=== PATIENT | female | born 1945 | race Caucasian/White ===

== ENCOUNTER 2023-11-27 18:08 | Emergency (ER) | payer OTHER, SELFPAY ==
[2023-11-27 18:12] VITALS: BP 177/105
[2023-11-27] MEDS: TORADOL 15 MG IV (19:51)
[2023-11-27] MEDS: DECADRON 10 MG IV (20:32)
[2023-11-27] MEDS: MORPHINE SULFATE 2 MG IV (20:32)
[2023-11-27] MEDS: ZOFRAN 4 MG IV (20:32)
[2023-11-27 20:44] VITALS: BP 180/94
--- NOTE | 2023-11-27 20:55 | EDRN ---
Patient placed on bedpan and was able to urinate, call licea reach.
--- NOTE | 2023-11-27 21:51 | EDRN ---
Patient feeling better, got her something to eat
[2023-11-27 22:46] VITALS: BP 168/86
--- NOTE | 2023-11-27 23:36 | ED.GENMED ---
History of Present Illness
General
Chief Complaint: Back Pain
Source: patient
Exam Limitations: none
Time Seen by Provider: 11/27/23 18:29
Nursing documentation reviewed up to this point in time: agreed with
Travel History
Have you had any contact with someone who has COVID-19?: No
Do you have any symptoms of coronavirus? Fever > 100 degrees, chills, cough, shortness of breath, sore throat, loss of taste or smell, muscle aches, or headache?: No
History of Present Illness
History of Present Illness:
Patient to ED with complaint of low back pain with radiation to thighs. Symptoms started this AM. Denies fever/chills. No history of trauma. Denies any weakness in extremities, no saddle parasthesia. Denies any urinary symptoms
Past History
Past History
ED Past Medical History: GERD and HTN
ED Past Surgical History: Gynecological and Orthopedic
Social History
Tobacco: Non-smoker
Personal:
Living: with family
Review of Systems
Review of Systems
Allergies reviewed?: Yes
All Other Systems: ROS reviewed and negative except as documented in HPI and ROS
Constitutional: Reports no symptoms
EENT: Reports no symptoms
Respiratory: Reports no symptoms
Cardiac: Reports no symptoms
ABD/GI: Reports no symptoms
: Reports no symptoms
Musculoskeletal: Reports back pain (bilateral lower back pain)
Skin: Reports no symptoms
Neurological: Reports no symptoms
Psychiatric: Reports no symptoms
Phy Exam
General Physical Exam
General Presentation: well appearing and mild distress
General age: appears stated age
General Skin: warm and dry
General Habitus: normal
General Mental: alert
Gastrointestinal Exam
Gastrointestinal Exam: non tender and soft
Musculoskeletal Exam
Musculoskeletal Exam: no edema and neuro vasc intact
Skin Exam
Skin Exam: normal color and warm/dry
Psychiatric Exam
Psychiatric Exam: normal mood/affect
Course
Orders/Labs/Results
Orders:
Orders
11/27/23 18:52
Ketorolac [Toradol] 15 mg IV NOW STA
Lumbar Spine Complete, 4 View [CR Lumbar Spine Comp Min 4 Vw*] Urgent
Comment:
Reason For Exam: pain
11/27/23 20:25
Dexamethasone Sod Phosphate [Decadron] 10 mg IV NOW STA
Morphine Sulfate 2 mg IV NOW STA
Ondansetron Injectable [Zofran] 4 mg IV NOW STA
Vital Signs
Initial and Last Documented VS:
Initial Vital Signs
Temp Pulse Resp BP Pulse Ox
97.7 F 80 16 177/105 97
11/27/23 18:12 11/27/23 18:12 11/27/23 18:12 11/27/23 18:12 11/27/23 18:12
Last Documented Vital Signs
Temp Pulse Resp BP Pulse Ox
97.7 F 89 16 168/86 92
11/27/23 18:12 11/27/23 20:44 11/27/23 20:44 11/27/23 22:46 11/27/23 20:44
*Radiology
Radiology exam reviewed: radiology read reviewed
*Pulse Oximetry
Patient hypoxic: no
*Critical Care Note
Total Time (30-74mins, 75-104mins- exclusive of procedures): Not Applicable
Update Note
Update Note:
Improved after pain medicatons. She is discharged home, will follow up with PCP in AM
ED Attending Note
-
Portions of this chart may have been created with voice recognition software.� Occasional wrong word or��sound alike� substitutions may have occurred due to the inherent limitations of voice recognition software.
Discharge Plan
Departure
Patient Disposition: Home (Routine Discharge)
Date of Disposition: 11/27/23
Time of Disposition: 22:01
Patient with high blood pressure during this ER visit?: No
Condition: Good
Covid-19: Not Applicable
Discharge Problem:
Low back pain
Instructions: Low Back Pain (DC), Sciatica (DC)
Prescriptions:
New
oxycodone-acetaminophen [Percocet] 5-325 mg tablet
1 tab PO Q4H PRN (Reason: Pain) Qty: 12 0RF
No Action
docusate sodium [Colace] 100 mg Capsule
100 mg PO DAILYPRN PRN (Reason: cosntipation)
pravastatin 20 mg Tablet
20 mg PO HS
lisinopril 40 mg Tablet
40 mg PO DAILY
ropinirole 2 mg Tablet Extended Release 24 Hr
2 mg PO BID@1200,2200
magnesium oxide 500 mg Tablet
500 mg PO DAILY Qty: 30 0RF
ferrous sulfate 325 mg (65 mg iron) tablet
325 mg PO DAILY Qty: 30 0RF
propranolol 10 mg Tablet
10 mg PO BID Qty: 0 0RF
propranolol 10 mg tablet
10 mg PO BID Qty: 60 0RF
Referrals:
Cindy Camp MD [Family Provider] - Follow up in 2-3 days
Interventions
Interventions:
*Risk Screen - Suicide Last Done: 11/27/23 18:38
*General Assessment Last Done: 11/27/23 18:38
*Neglect/Abuse Screening Last Done: 11/27/23 18:38
ED- Fall Risk Assessment Last Done: 11/27/23 20:44
*ED COVID-19 Vaccine History Last Done: 11/27/23 18:12
*Nursing Disposition Last Done: 11/27/23 22:48
ED-Musculoskeletal Assessment Last Done: 11/27/23 18:38
Discharge Date and Time
Discharge Date/Time: 11/27/23 22:55
Musculoskeletal Injury Exam
Musculoskeletal Injury Exam
Bilateral Lower Back:
Pain with Movement?: Moderate
Tender to palpation?: Moderate
Soft tissue swelling?: None
External deformity and angulation?: None
Joint effusion?: None
Contusion?: None
Strain- Sprain- Tear (Connective tissue injury)?: Moderate
Crepitus with movement?: No
Joint instability?: No
Malalignment/deformity?: No
Range of motion: Limited
Distal skin color and temperature: normal-warm & good color
Capillary Refill: normal
Normal distal neurovascular exam?: Yes
== END 2023-11-27 22:55 | disposition home or self-care (01) ==
LOC: EMR 18:08
PROVIDERS: EMERGENCY PHYSICIAN Emergency Medicine; FAMILY PHYSICIAN Internal Medicine
DX: M54.50 Low back pain, unspecified (principal); M79.605 Pain in left leg; I10 Essential (primary) hypertension; K21.9 Gastro-esophageal reflux disease without esophagitis; M19.90 Unspecified osteoarthritis, unspecified site; Z88.8 Allergy status to other drugs, medicaments and biological substances
CPT/HCPCS: 99284; 96374; 96375 ×3; 72110

== ENCOUNTER → 2023-12-08 13:52 | Outpatient (REF) | payer OTHER, SELFPAY | LOC: HWRAD 13:52 | PROVIDERS: ATTENDING PHYSICIAN Physician Assistant; FAMILY PHYSICIAN Internal Medicine | DX: M54.16 Radiculopathy, lumbar region (principal) | CPT/HCPCS: 72131 ==

== ENCOUNTER → 2023-12-22 12:25 | Outpatient (REF) | payer OTHER, SELFPAY | LOC: WOUND 12:25 | PROVIDERS: ATTENDING PHYSICIAN Surgery; FAMILY PHYSICIAN Internal Medicine | DX: L97.812 Non-pressure chronic ulcer of other part of right lower leg with fat layer exposed (principal); I87.2 Venous insufficiency (chronic) (peripheral); I73.9 Peripheral vascular disease, unspecified; M18.12 Unilateral primary osteoarthritis of first carpometacarpal joint, left hand | CPT/HCPCS: 11042; 99204 ==

== ENCOUNTER → 2023-12-29 09:26 | Outpatient (REF) | payer OTHER, SELFPAY | LOC: WOUND 09:26 | PROVIDERS: ATTENDING PHYSICIAN Surgery; FAMILY PHYSICIAN Internal Medicine | DX: L97.812 Non-pressure chronic ulcer of other part of right lower leg with fat layer exposed (principal); I87.2 Venous insufficiency (chronic) (peripheral); I73.9 Peripheral vascular disease, unspecified; M18.12 Unilateral primary osteoarthritis of first carpometacarpal joint, left hand | CPT/HCPCS: 11042 ==

== ENCOUNTER → 2024-01-05 11:11 | Outpatient (REF) | payer OTHER, SELFPAY | LOC: WOUND 11:11 | PROVIDERS: ATTENDING PHYSICIAN Surgery; FAMILY PHYSICIAN Internal Medicine | DX: L97.812 Non-pressure chronic ulcer of other part of right lower leg with fat layer exposed (principal); I87.2 Venous insufficiency (chronic) (peripheral); I73.9 Peripheral vascular disease, unspecified; M18.12 Unilateral primary osteoarthritis of first carpometacarpal joint, left hand | CPT/HCPCS: 11042 ==

== ENCOUNTER → 2024-01-17 11:21 | Outpatient (REF) | payer OTHER, SELFPAY | LOC: WOUND 11:21 | PROVIDERS: ATTENDING PHYSICIAN Surgery; FAMILY PHYSICIAN Internal Medicine | DX: L97.812 Non-pressure chronic ulcer of other part of right lower leg with fat layer exposed (principal); I87.2 Venous insufficiency (chronic) (peripheral); I73.9 Peripheral vascular disease, unspecified; M18.12 Unilateral primary osteoarthritis of first carpometacarpal joint, left hand | CPT/HCPCS: 11042 ==

== ENCOUNTER → 2024-01-31 11:24 | Outpatient (REF) | payer OTHER, SELFPAY | LOC: WOUND 11:24 | PROVIDERS: ATTENDING PHYSICIAN Surgery; FAMILY PHYSICIAN Internal Medicine | DX: L97.812 Non-pressure chronic ulcer of other part of right lower leg with fat layer exposed (principal); I87.2 Venous insufficiency (chronic) (peripheral); I73.9 Peripheral vascular disease, unspecified; M18.12 Unilateral primary osteoarthritis of first carpometacarpal joint, left hand | CPT/HCPCS: 11042 ==

== ENCOUNTER → 2024-02-21 10:56 | Outpatient (REF) | payer OTHER, SELFPAY | LOC: HWRAD 10:56 | PROVIDERS: ATTENDING PHYSICIAN Surgery; FAMILY PHYSICIAN Internal Medicine | DX: L97.812 Non-pressure chronic ulcer of other part of right lower leg with fat layer exposed (principal); I87.2 Venous insufficiency (chronic) (peripheral) | CPT/HCPCS: 93970 ==

== ENCOUNTER → 2024-02-22 13:06 | Outpatient (REF) | payer OTHER, SELFPAY | LOC: RAD 13:06 | PROVIDERS: ATTENDING PHYSICIAN Surgery; FAMILY PHYSICIAN Internal Medicine | DX: L97.812 Non-pressure chronic ulcer of other part of right lower leg with fat layer exposed (principal); I73.9 Peripheral vascular disease, unspecified | CPT/HCPCS: 93922; 93925 ==

== ENCOUNTER → 2024-03-05 10:56 | Outpatient (REF) | payer OTHER, SELFPAY | LOC: WOUND 10:56 | PROVIDERS: ATTENDING PHYSICIAN Surgery; FAMILY PHYSICIAN Internal Medicine | DX: L97.812 Non-pressure chronic ulcer of other part of right lower leg with fat layer exposed (principal); I87.2 Venous insufficiency (chronic) (peripheral); I73.9 Peripheral vascular disease, unspecified; M18.12 Unilateral primary osteoarthritis of first carpometacarpal joint, left hand | CPT/HCPCS: 11042 ==

== ENCOUNTER 2024-04-04 13:38 | Emergency (ER) | payer OTHER, SELFPAY ==
[2024-04-04 13:46] VITALS: BP 164/102
[2024-04-04 14:14] LABS: % Basophils 1.1 % (0-2); % Eosinophils 3.8 % (0-6); % Immature Granulocytes 0.3 % (0-0.5); % Lymphocytes 12.5 % (20.5-51.1); % Monocytes 6.7 % (1.7-9.3); % Neutrophils 75.6 % (42.2-75.2); Absolute Basophils 0.1 10^3/uL (0-0.2); Absolute Eosinophils 0.3 10^3/uL (0-0.7); Absolute Lymphocytes 0.9 10^3/uL (1.2-3.4); Absolute Monocytes 0.5 10^3/uL (0.1-0.6); Absolute Neutrophils 5.5 10^3/uL (1.4-6.5); Hematocrit 36.4 % (37.0-47.0); Hemoglobin 11.8 g/dL (12.0-16.0); Mean Corp Hgb Conc. 32.4 g/dL (33.0-37.0); Mean Corpuscular Hgb 30.3 pg (27.0-31.0); Mean Corpuscular Volume 93.6 fL (81.0-99.0); Mean Platelet Volume 9.5 fL (7.4-10.4); Nucleated Red Blood Cells % 0 %; Platelet Count 273 10^3/uL (130-400); Red Blood Cell Count 3.89 10^6/uL (4.20-5.40); Red Cell Dist. Width 13.6 % (11.5-14.5); White Blood Cell Count 7.3 10^3/uL (4.8-10.8)
[2024-04-04 14:27] LABS: ALT (SGPT) 15 U/L (0-35); AST (SGOT) 25 U/L (14-36); Albumin 4.2 g/dl (3.5-5.0); Alkaline Phosphatase 124 U/L (38-126); Blood Urea Nitrogen 21 mg/dl (7-17); Calcium 9.5 mg/dl (8.4-10.2); Carbon Dioxide 29 mmol/L (22-30); Chloride 102 mmol/L (98-107); Glucose 116 mg/dl (70-99); Potassium 4.4 mmol/L (3.5-5.1); Sodium 138 mmol/L (135-145); Total Bilirubin 0.5 mg/dl (0.2-1.3); Total Protein 7.3 g/dl (6.3-8.2); eGFR > 60.00
[2024-04-04 16:00] VITALS: BP 171/93
--- NOTE | 2024-04-04 17:11 | ED.GENMED ---
History of Present Illness
General
Chief Complaint: Gait Dysfunction
Source: patient and family
Time Seen by Provider: 04/04/24 16:57
History of Present Illness
History of Present Illness:
78-year-old female presents to the emergency room after being referred here from an urgent care. Patient went to urgent care because she had fallen off the couch a couple times while sleeping. She was complaining of some difficulty walking because
her right leg and when to move normally. She states her right leg would move normally when she was sitting but when she attempted to walk it was difficult. Patient does endorse a history of back issues and spinal stenosis. Due to severe
claustrophobia she has not had an MRI but she has been seen by back specialist and did have some injections in her back. Surprisingly the patient recognized that her right leg was moving more normally when they were getting into the car to go to
the urgent care. Right now she feels her leg is moving normally and the issues of the right leg have completely gone away. However while at the urgent care at the provider there noted some erythema of the left lower extremity. They referred her
to the emergency room to rule out DVT. Patient has no pain in her lower extremity. She denies any chest pain or shortness of breath. Patient has not had any hospitalizations or periods of immobilization. She denies any long car rides or plane
rides.
Past History
Past History
ED Past Medical History: GERD and HTN
ED Past Surgical History: Gynecological and Orthopedic
Social History
Tobacco: Non-smoker
Personal:
Living: with family
Phy Exam
Physical Exam
Physical Exam:
General: Awake, Alert, Oriented X3. No acute distress, appears stated age
Vitals: unremarkable
Head: Atraumatic
Eyes: Pupils equal, EOMI
Throat: Airway intact, no exudates
Neck: Trachea midline
Lungs: Clear and equal b/l
Heart: Regular rate, no murmurs
Abd: Soft, Nontender, No pulsatile mass
Neuro: Nonfocal, muscle strength in both lower extremities are intact. Sensation is intact in bilateral lower extremity
Skin: Warm, dry, no rash
Extremities: pulses equal b/l, trace edema bilaterally, mild erythema of the foot to the mid lower leg bilaterally perhaps a bit more on the left. No tenderness with palpation of the calf. Sensation intact. I am able to move the ankle, knee and
hip through range of motion on the right without any discomfort.
Course
Orders/Labs/Results
Orders:
Orders
04/04/24 13:57
CMP [Comprehensive Metabolic Panel] Urgent
Complete Blood Count/With Diff Urgent
04/04/24 17:26
US Periph Venous LOWER Ext LT Urgent
Comment:
Reason For Exam: erythema, swelling
Abnormal Lab Results
04/04/24
13:57
RBC 3.89 L 10^6/uL
(4.20-5.40)
Hgb 11.8 L g/dL
(12.0-16.0)
Hct 36.4 L %
(37.0-47.0)
MCHC 32.4 L g/dL
(33.0-37.0)
Absolute Lymphs (auto) 0.9 L 10^3/uL
(1.2-3.4)
Neutrophils % 75.6 H %
(42.2-75.2)
Lymphocytes % 12.5 L %
(20.5-51.1)
BUN 21 H mg/dl
(7-17)
Glucose 116 H mg/dl
(70-99)
04/04/24 13:57
04/04/24 13:57
Vital Signs
Initial and Last Documented VS:
Initial Vital Signs
Temp Pulse Resp BP Pulse Ox
98.0 F 75 18 164/102 96
04/04/24 13:46 04/04/24 13:46 04/04/24 13:46 04/04/24 13:46 04/04/24 13:46
Last Documented Vital Signs
Temp Pulse Resp BP Pulse Ox
98 F 84 16 203/92 96
04/04/24 16:00 04/04/24 19:32 04/04/24 16:00 04/04/24 19:32 04/04/24 19:32
MDM/Problems Addressed
Differential Diagnosis Includes:
Changes of venous stasis, cellulitis, DVT
MDM/Problems Addressed:
Patient has an exam which seems more consistent with chronic venous stasis but given another practitioner has because the family concerned about a DVT we will have to excluded with the study.
*Critical Care Note
Total Time (30-74mins, 75-104mins- exclusive of procedures): Not Applicable
ED Attending Note
-
Portions of this chart may have been created with voice recognition software.� Occasional wrong word or��sound alike� substitutions may have occurred due to the inherent limitations of voice recognition software.
Discharge Plan
Departure
Patient Disposition: Home (Routine Discharge)
Date of Disposition: 04/04/24
Time of Disposition: 18:48
Patient with high blood pressure during this ER visit?: Yes
Condition: Good
Discharge Problem:
Venous stasis dermatitis
Instructions: BLOOD PRESSURE
Prescriptions:
No Action
docusate sodium [Colace] 100 mg Capsule
100 mg PO DAILYPRN PRN (Reason: cosntipation)
pravastatin 20 mg Tablet
20 mg PO HS
lisinopril 40 mg Tablet
40 mg PO DAILY
ropinirole 2 mg Tablet Extended Release 24 Hr
2 mg PO BID@1200,2200
magnesium oxide 500 mg Tablet
500 mg PO DAILY Qty: 30 0RF
ferrous sulfate 325 mg (65 mg iron) tablet
325 mg PO DAILY Qty: 30 0RF
propranolol 10 mg Tablet
10 mg PO BID Qty: 0 0RF
propranolol 10 mg tablet
10 mg PO BID Qty: 60 0RF
oxycodone-acetaminophen [Percocet] 5-325 mg tablet
1 tab PO Q4H PRN (Reason: Pain) Qty: 12 0RF
Referrals:
UNKNOWN - PT DOES,NOT KNOW [Family Provider] -
Activity Restrictions/Additional Instructions:
The ultrasound of your leg is negative for any clots. The increased redness of your legs is likely due to changes in venous blood flow that occurs with age. Though your right leg issue has resolved but I suspect this was related to your lumbar
spine. Please follow your family doctor related to this as well. Your blood pressure is somewhat elevated here in the emergency room. Please follow-up with your family doctor to recheck this and see if there is any medication modifications they
would like to make.
Interventions
Interventions:
*Risk Screen - Suicide Last Done: 04/04/24 17:15
*General Assessment Last Done: 04/04/24 17:15
*Neglect/Abuse Screening Last Done: 04/04/24 17:15
ED- Fall Risk Assessment Last Done: 04/04/24 19:15
*ED COVID-19 Vaccine History Last Done: 04/04/24 17:15
*Nursing Disposition Last Done: 04/04/24 19:15
ED- Neurological Assessment Last Done: 04/04/24 17:15
ED-Musculoskeletal Assessment Last Done: 04/04/24 17:15
Discharge Date and Time
Discharge Date/Time: 04/04/24 19:20
Print Language: SWISS
[2024-04-04 19:32] VITALS: BP 203/92
== END 2024-04-04 19:20 | disposition home or self-care (01) ==
LOC: EMR 13:38
PROVIDERS: Emergency Medicine; EMERGENCY PHYSICIAN Emergency Medicine
DX: I87.2 Venous insufficiency (chronic) (peripheral) (principal); R26.2 Difficulty in walking, not elsewhere classified; K21.9 Gastro-esophageal reflux disease without esophagitis; I10 Essential (primary) hypertension
CPT/HCPCS: 99284; 80053; 85025; 93971

== ENCOUNTER → 2024-04-10 11:18 | Outpatient (REF) | payer OTHER, SELFPAY | LOC: WOUND 11:18 | PROVIDERS: ATTENDING PHYSICIAN Surgery; FAMILY PHYSICIAN Internal Medicine | DX: L97.812 Non-pressure chronic ulcer of other part of right lower leg with fat layer exposed (principal); I87.2 Venous insufficiency (chronic) (peripheral); I73.9 Peripheral vascular disease, unspecified; M18.12 Unilateral primary osteoarthritis of first carpometacarpal joint, left hand | CPT/HCPCS: 11042 ==

== ENCOUNTER → 2024-04-23 11:20 | Outpatient (REF) | payer OTHER, SELFPAY | LOC: WOUND 11:20 | PROVIDERS: ATTENDING PHYSICIAN Surgery; FAMILY PHYSICIAN Internal Medicine | DX: L97.812 Non-pressure chronic ulcer of other part of right lower leg with fat layer exposed (principal); I87.2 Venous insufficiency (chronic) (peripheral); I73.9 Peripheral vascular disease, unspecified; M18.12 Unilateral primary osteoarthritis of first carpometacarpal joint, left hand | CPT/HCPCS: 11042 ==

== ENCOUNTER → 2024-04-30 11:21 | Outpatient (REF) | payer OTHER, SELFPAY | LOC: WOUND 11:21 | PROVIDERS: ATTENDING PHYSICIAN Surgery; FAMILY PHYSICIAN Internal Medicine | DX: L97.812 Non-pressure chronic ulcer of other part of right lower leg with fat layer exposed (principal); I87.2 Venous insufficiency (chronic) (peripheral); I73.9 Peripheral vascular disease, unspecified; M18.12 Unilateral primary osteoarthritis of first carpometacarpal joint, left hand | CPT/HCPCS: 97597 ==

== ENCOUNTER → 2024-05-08 11:15 | Outpatient (REF) | payer OTHER, SELFPAY | LOC: WOUND 11:15 | PROVIDERS: ATTENDING PHYSICIAN Surgery; FAMILY PHYSICIAN Internal Medicine | DX: L97.812 Non-pressure chronic ulcer of other part of right lower leg with fat layer exposed (principal); I87.2 Venous insufficiency (chronic) (peripheral); I73.9 Peripheral vascular disease, unspecified; M18.12 Unilateral primary osteoarthritis of first carpometacarpal joint, left hand | CPT/HCPCS: 99212 ==

== ENCOUNTER 2024-11-26 20:47 | Inpatient (IN) | payer OTHER, SELFPAY ==
[2024-11-26] VITALS (42 sets, daily range): BP systolic 61–138; BP diastolic 44–95; PULSE 53–65; BMI 24.1
[2024-11-26 13:39] LABS: % Basophils 0.4 % (0-2); % Eosinophils 1.3 % (0-6); % Immature Granulocytes 0.2 % (0-0.5); % Lymphocytes 11.9 % (20.5-51.1); % Monocytes 8.3 % (1.7-9.3); % Neutrophils 77.9 % (42.2-75.2); Absolute Eosinophils 0.1 10^3/uL (0-0.7); Absolute Lymphocytes 0.6 10^3/uL (1.2-3.4); Absolute Monocytes 0.4 10^3/uL (0.1-0.6); Absolute Neutrophils 3.7 10^3/uL (1.4-6.5); Hematocrit 35.6 % (37.0-47.0); Hemoglobin 11.5 g/dL (12.0-16.0); Mean Corp Hgb Conc. 32.3 g/dL (33.0-37.0); Mean Corpuscular Hgb 29.9 pg (27.0-31.0); Mean Corpuscular Volume 92.7 fL (81.0-99.0); Nucleated Red Blood Cells % 0.4 %; Red Blood Cell Count 3.84 10^6/uL (4.20-5.40); Red Cell Dist. Width 15.9 % (11.5-14.5); White Blood Cell Count 4.7 10^3/uL (4.8-10.8)
[2024-11-26 13:50] LABS: Mean Platelet Volume 12.6 fL (7.4-10.4); Platelet Count 74 10^3/uL (130-400)
[2024-11-26 13:59] LABS: ALT (SGPT) 49 U/L (0-35); AST (SGOT) 63 U/L (14-36); Albumin 3.8 g/dl (3.5-5.0); Alkaline Phosphatase 193 U/L (38-126); Blood Urea Nitrogen 58 mg/dl (7-17); Calcium 9.5 mg/dl (8.4-10.2); Carbon Dioxide 26 mmol/L (22-30); Chloride 107 mmol/L (98-107); Glucose 97 mg/dl (70-99); Sodium 141 mmol/L (135-145); Total Bilirubin 0.4 mg/dl (0.2-1.3); Total Protein 7.1 g/dl (6.3-8.2)
--- NOTE | 2024-11-26 17:17 | ED.GENMED ---
History of Present Illness
General
Chief Complaint: Weakness
Source: patient and family
Time Seen by Provider: 11/26/24 16:01
History of Present Illness
History of Present Illness:
This patient is an 79-year-old female presents emergency department with a 3-week history of reported lethargy, slow to answer questions and occasionally slurred speech. She also has very poor p.o. intake and eats and drinks very little over the
last 3 weeks without noted weight change. Patient reports a severe amount of nasal congestion and postnasal drip. confirms that she also has a cough that is productive without blood and is complaining of a dry mouth. Patient typically
uses a walker and shuffles, they attribute this in part to a 'bad knee'. They have not noted changes to her gait. No history of recent trauma. Patient does not typically seek medical care. She is not on any blood thinning medications. No
history recently of fever, chills, chest pain, shortness of breath, abdominal pain, vomiting, diarrhea, or other complaints peer
Past History
Past History
ED Past Medical History: GERD, HTN and Hypercholesterolemia
ED Past Surgical History: Gynecological, Orthopedic and Other ([facility])
Social History
Tobacco: Non-smoker
Alcohol: None
Drug: None
Personal:
Living: with family
Phy Exam
Physical Exam
Physical Exam:
GENERAL: Alert , in no apparent distress
EYE: pupils equal and reactive, no photophobia, EOMI
NECK: Supple, no significant adenopathy.
ENT: o/p clr, mm very dry
CARDIAC: Regular rate and rhythm, questionable 2 out of 6 systolic murmur noted.
LUNGS: Equal breath sounds bilaterally, no acute respiratory distress, diffuse rhonchi noted, no retractions
ABDOMEN: Soft, without focal tenderness, no r/g, no cvat
NEUROLOGICAL: Alert and oriented but very slow to answer to some questions, [id number] normal, motor 5 out of 5, sensory intact to light touch. Cranial nerves II through XII intact with the section
SKIN: Warm and dry, skin intact.
MUSCULOSKELETAL: No edema, well perfused.
PSYCH: Normal and appropriate interaction.
Course
Orders/Labs/Results
Orders:
Orders
11/26/24 13:18
Complete Blood Count/With Diff Urgent
Comprehensive Metabolic Panel Urgent
11/26/24 Dinner
NPO
Allow oral meds: Yes
Allow clear liquids: Sips of Clears
11/26/24 17:15
Electrocardiogram (*1) Urgent
Reason for Study: Other
Other Reason for Exam: sepsis
Cardiac Monitoring- Treatment ONCE
EKG- Treatment ONCE
0.9% Sodium Chloride 1000 ml [Nss] 1,000 ml IV BOLUS
CR Chest - 2 Views Urgent
Comment:
Reason For Exam: cough
Pulse Ox/cont/shift [RESP] Urgent
Quantity: 1
11/26/24 17:16
CT Head W/o Iv Contrast Urgent
Comment:
Reason For Exam: confusion/lethargy
11/26/24 17:37
Alcohol Urgent
COVID-19 Antigen Urgent
Source: Nasal Swab
Lactic Acid Q4H
Comment: CANCEL 2nd LACTIC ACID IF 1st LACTIC ACID IS LESS THAN 2
TSH Urgent
Troponin I Urgent
Blood Culture Q30M
MARA Source: Blood/Venous
Specimen Description:
Influenza A+B Rapid Molecular Urgent
MARA Source: Nasal Swab
Specimen Description:
11/26/24 17:46
Blood Culture Q30M
MARA Source: Blood/Venous
Specimen Description:
11/26/24 17:58
Rocio Hugger [Rocio Hugger-Treatment] ONCE
Patient's goal temperature:: 97 F
Additional Instructions:: Temperature and skin assessment per unit protocol
11/26/24 18:45
US Abdomen Complete/Upper Urgent
Comment:
Reason For Exam: lft abnl, hypothermia
11/26/24 19:07
Electrocardiogram (*1) Urgent
Reason for Study: Bradycardia / Tachycardia
EKG- Treatment ONCE
11/26/24 19:22
Azithromycin 500 mg/250 ml [Zithromax Infusion] 500 mg in 250 ml IV NOW
CefTRIAXone [Rocephin] 1,000 mg IV NOW STA
11/26/24 19:24
Atropine Sulfate [Atropine 0.1 mg/ml Syringe] 1 mg .ROUTE .STK-MED ONE
Atropine Sulfate [Atropine 0.1 mg/ml Syringe] 1 mg IV NOW STA
11/26/24 19:25
EPINEPHrine 4 mg/250 mL NSS [Adrenalin] 4 mg in 250 ml IV NOW
Initial dose in mcg/min, then titrate:: 2
Titrate to keep:: MAP > 65 mmHg
Titrate by mcg/min:: 0.5 - 1 mcg/minute
Frequency of titrations (minutes):: 5
Maximum dose in mcg/min:: 10
Begin to taper infusion when:: Remained at goal for 4hrs
Taper by mcg/min:: 0.5 - 1 mcg/minute
Frequency of taper (minutes) if patient maintains goal:: 30
Taper to off?: Yes
If infusion off & no longer maintaining goal:: Contact Provider
11/26/24 19:42
Urinalysis Reflex To Culture Urgent
Date Specimen was Collected: 11/26/24
Time Specimen was Collected: 19:41
Urine Drug Abuse Screen Urgent
Date Specimen was Collected: 11/26/24
Time Specimen was Collected: 19:41
Urine Microscopic Reflex Cult Urgent
Urine Culture Urgent
MARA Source: U
Specimen Description:
Date Specimen was Collected: 11/26/24
Time Specimen was Collected: 19:41
11/26/24 20:18
CRP [C-Reactive Protein] Stat
ESR [Erythrocyte Sed Rate] Stat
Free T4 Stat
GGT [GGTP] Stat
Procalcitonin Stat
PCT Algorithmm Indication: Respiratory
Salicylate Stat
Comment: ADDON
11/26/24 20:23
Admit/Transfer Patient As Directed
Co-Sign Provider:
Level of Care: Inpatient admission
Assign to:: ICU
Physician / Group: hospitalist
Diagnosis: hypothermia
Reason for Hospitalization: hypothermia, symptomatic bradycardia with hypotension
Expected length of stay greater than two midnights?: Yes
ELOS- Estimated Length of Stay in days: 2
I certify the patient meets the requirements for IP care: Yes
PRN Pain Medication Management As Directed
May give lesser potent ordered pain med per pt: Yes
preference::
Protocol:: Medication orders for pain may be administered in a
manner that supports deferring to patient preference
when the pt is:
- Requesting an ordered lesser potent pain medication.
Least to most potent pain medications are defined
as: acetaminophen < NSAID < tramadol < opioids
(morphine, oxycodone, hydromorphone).
- Requesting a lesser dose of the same medication IF
ORDERED.
- Requesting a less intrusive route of administration
if both routes are prescribed by the provider (PO <
IV).
11/26/24 20:24
Code Status As Directed
Resuscitation Status: Full Code
11/26/24 20:30
Add On- LAB Urgent
Tests Added?: salicylate level
11/26/24 20:42
Add On- LAB Stat
Tests Added?: urine drug screen
11/26/24 21:08
Lactic Acid Stat
11/26/24 22:00
MetroNIDAZOLE 500 MG/100 ML [Flagyl 500 mg] 100 ml IV Q12H
11/26/24 22:01
Acetaminophen [Tylenol] 650 mg PO Q6HPRN PRN
Cefepime HCl [Maxipime] 1,000 mg IV Q6H
Dextrose 5%/Lactringers 1000ML [D5lr] 1,000 ml IV 80 mls/hr
EPINEPHrine 4 mg/250 mL NSS [Adrenalin] 4 mg in 250 ml IV PER PROTOCOL
Currently infusing. Continue current dose and titrate:: Yes
Titrate to keep:: HR > 60 bpm
Titrate to keep other:: MAP > 60
Titrate by mcg/min:: 0.5-1 mcg/min
Frequency of titrations (minutes):: 5
Maximum dose in mcg/min:: 10
Begin to taper infusion when:: Remained at goal for 4hrs
Taper by mcg/min:: 0.5-1 mcg/min
Frequency of taper (minutes) if patient maintains goal:: 30
Taper to off?: Yes
If infusion off & no longer maintaining goal:: Contact Provider
Ondansetron Injectable [Zofran] 4 mg IV Q6HPRN PRN
11/26/24 22:01
Activity As Directed
Activity Level: With Assistance
Louis Catheter [Catheter- Indwelling] As Directed
Reason for insertion: I&O's Critical Care
Assess insertion reason daily.Remove if no longer applicable: Yes
Intake/ Output As Directed
Frequency: Per unit guidelines
Vital Signs As Directed
Frequency: Per unit guidelines
O2 Therapy [RESP] Routine
Nasal Cannula Liter Flow: 3 LPM
Titrate/Wean O2 to maintain O2 sat greater than (%): 93
Pulse Ox/cont/shift [RESP] Routine
Quantity: 1
Special Instructions: continuous pulse ox
DX Deep Vein Thrombosis Video Routine
11/27/24 04:04
Complete Blood Count/No Diff IN AM
Cortisol, Random IN AM
Creatine Phosphokinase IN AM
Glycohemoglobin (HgbA1c) IN AM
Hepatitis A IgM Antibody IN AM
Hepatitis B Core Ab, IgM IN AM
Hepatitis B Surface Antibody IN AM
Hepatitis B Surface Antigen IN AM
Hepatitis C Antibody IN AM
11/27/24 08:00
Pantoprazole [Protonix IV] 40 mg IV DAILY
11/27/24 18:00
Enoxaparin Sodium [Lovenox] 40 mg SC QPM
Abnormal Lab Results
11/26/24 11/26/24 11/26/24
13:18 19:42 20:18
WBC 4.7 L 10^3/uL
(4.8-10.8)
RBC 3.84 L 10^6/uL
(4.20-5.40)
Hgb 11.5 L g/dL
(12.0-16.0)
Hct 35.6 L %
(37.0-47.0)
MCHC 32.3 L g/dL
(33.0-37.0)
RDW 15.9 H %
(11.5-14.5)
Plt Count 74 L 10^3/uL
(130-400)
MPV 12.6 H fL
(7.4-10.4)
Absolute Lymphs (auto) 0.6 L 10^3/uL
(1.2-3.4)
Neutrophils % 77.9 H %
(42.2-75.2)
Lymphocytes % 11.9 L %
(20.5-51.1)
ESR 44 H mm/hour
(0-20)
BUN 58 H mg/dl
(7-17)
AST 63 H U/L
(14-36)
ALT 49 H U/L
(0-35)
Alkaline Phosphatase 193 H U/L
(38-126)
C-Reactive Protein 18.20 H mg/L
(0.0-10.00)
Ur Occult Blood Reflex 4+ A
(Negative)
Leukocyte Esterase Rfl 3+ A
(Negative)
Urine RBC 16-20 A /HPF
(0-2)
Urine WBC (Reflex) 60-70 A /HPF
(0-5)
Urine Bacteria (Reflex) Many A
(Negative)
Urine Albumin (Reflex) 2+ A
(Neg - Trace)
Salicylates < 1.0 L mg/dl
(2.0-20.0)
11/26/24 13:18
11/26/24 13:18
Vital Signs
Initial and Last Documented VS:
Initial Vital Signs
Pulse Resp BP Pulse Ox
57 16 103/66 93
11/26/24 13:11 11/26/24 13:11 11/26/24 13:11 11/26/24 13:11
Last Documented Vital Signs
Temp Pulse Resp BP Pulse Ox
96.8 F L 54 16 127/70 97
11/27/24 15:41 11/27/24 14:45 11/27/24 14:45 11/27/24 14:40 11/27/24 14:45
*Critical Care Note
Total Time (30-74mins, 75-104mins- exclusive of procedures): 35
Update Note
Update Note:
Patient presents to the Emergency Department with __lethargy, cough, etc.
Number and Complexity of Problems Addressed at the Encounter
� Chronic conditions affecting care:
� Acute Exacerbation and/or Progression of Chronic Illness:
� Differential Diagnosis includes: But not limited to sepsis, pneumonia, thyroid disorder, stroke, UTI, drug related effects, etc. etc.
Amount and/or Complexity of Data to be Reviewed and Analyzed
� I performed an independent evaluation of and my interpretation is:
EKG:sinus paola, no acute ischemia
CT:head nad
Xrays:Large hiatal hernia/partially intrathoracic stomach, probably increased in size compared to previous radiograph of August 03, 2023.
Small left pleural effusion, which appears increased compared to previous radiograph. Parenchymal opacity within the left lower lung is most likely atelectasis, but underlying pneumonia difficult to exclude.
Patchy parenchymal opacity within the right lower lung is new from previous radiograph, with main differential considerations of pneumonia and/or atelectasis.
Laboratory Studies: New thrombocytopenia noted, questional cause, new prerenal azotemia I suspect related to poor p.o. intake, nonspecific LFT abnormalities
Other:
� Review of other/old records reveals: I reviewed meds with daughter Arline Wright, patient is on propranolol, losartan, and now nifedipine which was added about 5 weeks ago.
� Clinical information was obtained by an independent historian: and [id number] Adriana who is at bedside
� Prescriptions/Medications Considered but not given:
� Further testing considered but not performed:
Risk of Complications and/or Morbidity or Mortality of Patient Management
� Social determinants of health affecting care:
� Discussion with other providers (PCP, Hospitalists, Consultants, etc):
� Escalation of care including admission/observation vs risk of discharge considered: Patient was moderately bradycardic upon presentation is now having episodes of bradycardia to the level of heart rate of 30s with associated
hypotension. This spontaneously improved to heart rate in the 50s with a systolic blood pressure in the mid 80s. Patient is awake and alert. Repeat ECG shows sinus bradycardia at 50, no specific heart blocks noted. In speaking with family, she
did have a calcium channel leela just added to her regimen and perhaps the combination of 3 BP meds could be contributing to these vital sign abnormalities. Patient will be started on a low-dose epi drip in addition to close monitoring of
patient's temperature, respiratory status etc. Case discussed with hospitalist. Family updated.
ED Attending Note
-
Portions of this chart may have been created with voice recognition software.� Occasional wrong word or��sound alike� substitutions may have occurred due to the inherent limitations of voice recognition software.
Discharge Plan
Departure
Patient Disposition: Admit
Date of Disposition: 11/26/24
Time of Disposition: 19:25
Admit to: ICU
Presentation/result/management discussed w/ accepting MD/DO: Hospitalist
Condition: Critical
Discharge Problem:
Hypothermia, Bradycardia
Interventions
Interventions:
*Risk Screen - Suicide Last Done: 11/26/24 13:14
*General Assessment Last Done: 11/26/24 17:33
*Neglect/Abuse Screening Last Done: 11/26/24 13:14
*ED COVID-19 Vaccine History Last Done: 11/26/24 17:33
*Nursing Disposition Last Done: 11/26/24 22:12
ED- Cardiac Assessment Last Done: 11/26/24 18:28
ED- Neurological Assessment Last Done: 11/26/24 18:28
ED- Pulmonary Assessment Last Done: 11/26/24 18:28
Discharge Date and Time
Discharge Date/Time: 11/26/24 22:12
[2024-11-26] MEDS: NSS 1000 IV (17:42)
[2024-11-26 18:09] LABS: Lactic Acid 0.8 mmol/L (0.7-2.0)
[2024-11-26 18:11] LABS: Alcohol None Detected; COVID-19 Antigen Negative (Negative)
[2024-11-26 18:33] LABS: Troponin I < 0.012 ng/ml
[2024-11-26 18:41] LABS: TSH 3.32 uIU/ml (0.47-4.68)
[2024-11-26] MEDS: ATROPINE 0.1 MG/ML SYRINGE 1 MG IV (19:26)
[2024-11-26 19:50] LABS: Urine Albumin 2+ (Neg - Trace); Urine Bilirubin Negative (Negative); Urine Character Clear (Clear); Urine Color Yellow; Urine Glucose Negative (Negative); Urine Ketone Negative (Negative); Urine Leukocyte 3+ (Negative); Urine Nitrite Negative (Negative); Urine Occult Blood 4+ (Negative); Urine Urobilinogen Negative (Neg - 1+)
[2024-11-26] MEDS: ADRENALIN 250 IV (19:50)
--- NOTE | 2024-11-26 20:01 | HPS.HSE ---
Family Physician
-
Family Physician: Cindy Camp
Chief Complaint
-
Weakness
History of Present Illness
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
and lethargy over several weeks.
History obtained from spouse. According to spouse patient symptoms appear to have started over 2 months ago. She was increasingly less responsive and more sleepy during the day. Even when she is awake she only responds very briefly and then
immediately goes to sleep. She is easily arousable but then tends to go back to sleep. She has otherwise been more feeble. They denied any actual syncopal episode. They denies any loss of consciousness. Patient has a high pain tolerance and
denies any pain. Family reports that she has been having chronic cough for about 2 months. She always bringing up lots of phlegm. They could not tell whether she has any trouble swallowing or regurgitating. She has a large hiatal hernia likely
with GERD but family is unable to tell whether she is aspirating. Patient self denies any urinary symptoms. She denies any diarrhea. She denies any nausea or vomiting. They have not had any fevers at home. She has intermittent lower extremity
edema for which she has been using her compression stockings. They denied any acute weight gain. They denied any changes in medications except for initiation of nifedipine recently. Due to with weakness, sluggishness to respond and intermittent
sleepiness she was considered to have had a TIA and hospitalization was recommended.
She has no recent travel. There has been no sick contacts.
On arrival in the emergency department she was seen distress, she was bradycardic to the low 30s, she was hypothermic to 91.8, blood pressure was 100/70. She was satting 93% on room air. ECG showed sinus bradycardia at a rate of 56. No heart
block or bundle branch block, troponin was negative. Chest x-ray shows patchy bilateral opacities which could be atelectasis versus pneumonia. CBC notable for a leukopenia count of 74 but otherwise unremarkable. Electrolytes BUN/creatinine were
actually in the normal range. She had elevation of AST to 63 ALT to 49 and alk phos to 190. Alcohol level was negative. UA is pending.
She became hypotensive in the emergency department in the setting of her bradycardia to around low 40s. She was given a dose of atropine and started on epinephrine drip.
Medical History
Past Medical History
Past Medical History: Reports Other (HTN, GERD, arthritis, C2 fracture, restless leg syndrome)
Past Surgical History: Reports Bowel Resection and Other (Hernia repair, bowel resection)
Additional Past Surgical History:
D&E, fracture right ankle repair
Social History
Tobacco: Non-smoker
Alcohol: Occasional (Once a week)
Personal:
Living: With Family
Employment: Retired
Family History
Family History: Not pertinent
Allergies / Home Medications
Allergies reflects when Allergies were last updated in [facility].
Home Medications with original date entered in [facility]
Allergy/Medication List:
Allergies
Allergy/AdvReac Type Severity Reaction Status Date / Time
paroxetine Allergy passed out Verified 04/04/24 13:50
paroxetine HCl [From Paxil] Allergy passed out Verified 04/04/24 13:50
Home Medications
docusate sodium 100 mg capsule (Colace) 100 mg PO DAILYPRN PRN cosntipation 08/03/23
lisinopril 40 mg tablet 40 mg PO DAILY Blood Pressure 08/03/23
pravastatin 20 mg tablet 20 mg PO HS High Cholesterol 08/03/23
ropinirole 2 mg tablet,extended release 24 hr 2 mg PO BID@1200,2200 Neurological Condition 08/03/23
ferrous sulfate 325 mg (65 mg iron) tablet 325 mg PO DAILY #30 tabs 08/12/23
magnesium oxide 500 mg PO DAILY #30 tabs 08/12/23
propranolol 10 mg tablet 10 mg PO BID #0 tabs 08/12/23
propranolol 10 mg tablet 10 mg PO BID #60 tabs 08/12/23
oxycodone-acetaminophen 5 mg-325 mg tablet (Percocet) 1 tab PO Q4H PRN Pain #12 tabs 11/27/23
Review of Systems
-
History Source: Family
Constitutional: Reports Fatigue
EENT: Reports No Symptoms
Respiratory: Reports Cough
Cardiac: Reports No Symptoms
Abdomen/GI: Reports No Symptoms
: Reports No Symptoms
Musculoskeletal: Reports Edema
Skin: Reports No Symptoms
Neurological: Reports No Symptoms
Endocrine: Reports No Symptoms
Hematologic/Lymphatic: Reports No Symptoms
Psych: Reports No Symptoms
Physical Exam
Vital Signs
Vital Signs
Temp Pulse Resp BP Pulse Ox
91.8 F L 37 14 104/70 95
11/26/24 19:14 11/26/24 18:40 11/26/24 18:30 11/26/24 18:00 11/26/24 18:30
Physical Exam
General: Well Developed, No Apparent Distress and Poor Appetite
HEENT: NormoCephalic, Anicteric, PERRLA, Vona Conjunctivae, No Ptosis, Neck Nontender and Oxygen
Respiratory: Clear
Cardiac: S1/S2 and Bradycardia
Breast: Deferred by me
GI: Soft, Non Tender, Non Distended and Normal Bowel Sounds
Rectal: Deferred by Provider
Genito-urinary: Deferred by me
Musculoskeletal: No Clubbing, No Cyanosis, Edema, Left Lower Extremity (trace) and Edema, Right Lower Extremity (trace)
Skin: Warm
Neuro: Awake, Oriented (oriented to person) and Nonfocal/grossly intact
Hematologic/Lymphatic: No Lymphadenopathy
Psych: Calm
Laboratory Results
-
11/26/24 13:18
11/26/24 13:18
Laboratory Results
Lactic Acid Cancelled 11/26/24 21:15
Total Bilirubin 0.4 mg/dl (0.2-1.3) 11/26/24 13:18
AST 63 U/L (14-36) H 11/26/24 13:18
ALT 49 U/L (0-35) H 11/26/24 13:18
Alkaline Phosphatase 193 U/L (38-126) H 11/26/24 13:18
Troponin I < 0.012 ng/ml 11/26/24 17:37
Data Reviewed
-
Diagnostic Radiology: Report Reviewed by me
CT Scan: Report Reviewed by me
Medical Tests (Nuc Med, Echo, EKG etc): Image Personally Visualized and interpreted
Lab Data: Labs Reviewed by me
Old Records: Reviewed
Impression/Plan
-
IMPRESSION:
79 y.o female with progressive lethargy, somnolence and decreased responsiveness. She is awake and alert. Found to be symptomatically bradycardic and hypothermic. TSH normal. Infectious w/u is ongoing but no acute infection noted. No acute or
subacute intracranial process on CT scan. Mild LFT anomaly suggestive of ETOH but negative ETOH level. Suspect profound bradycardia as etiology of mental status changes but etiology of bradycardia remains unclear with normal tsh and sepsis is
suspected. She is on propranolol bid and started nifedipine recently. Sepsis possibly from aspiration given hypoxia on 2 L and patchy opacities with h/o hiatal hernia that is enlarging.
PLAN:
1. Symptomatic bradycardia - Hypotension and bradycardia s/p atropine. ECG with sinus paola. No heart block, no bundle branch block and no ST changes. Trop is negative. TSH is negative.
- admit to icu
- epinephrine gtt to keep puls > 60, MAP >65
- holding propranolol
- echo in am
- sepsis eval and tx as below
- elevate temperature
- check cortisol
- cardiology consult.
2. Hypoxia - PNA, ? Aspiration. Esau patchy opacities, small left pleural effusion
- neg flu, neg covid
- blood cultures sent
- IV ceftriaxone/azithromycin started, change to cefepime/flagyl
- check procalcitonin
- supportive measures
3. Sepsis/Hypothermia
- blood cultures as above
- urine cultures pending
- inflammatory markers
- normal tsh, check free t4, t3
- warming measures and abx as above
4. AMS - hypoactive encephalopathy. Multifactorial, poor perfusion, hypothermia, sepsis
- CT head is negative
- treat possible infection as above
- correction of perfusion and temp as aboe
5. F/E/N
- NPO
- maintenance fluids for now
6. Transaminitis - suspect etoh
- checking u/s
- acute hepatitis panel
DVT PPX - lovenox sq
Code status - Full Code
[2024-11-26] MEDS: ROCEPHIN 1000 MG IV (20:02)
[2024-11-26] MEDS: ZITHROMAX INFUSION 250 IV (20:02)
[2024-11-26 20:09] LABS: Urine Squamous Cell 26-30 /LPF (Few)
[2024-11-26 20:10] LABS: Urine Bacteria Many (Negative); Urine Red Blood Cell 16-20 /HPF (0-2); Urine White Cell 60-70 /HPF (0-5)
[2024-11-26 20:35] LABS: Erythrocyte Sed Rate 44 mm/hour (0-20)
[2024-11-26 20:47] LABS: GGTP 30 U/L (12-43); Salicylate < 1.0 mg/dl (2.0-20.0)
[2024-11-26 20:54] LABS: Procalcitonin 0.06 ng/ml (0.0-0.25)
[2024-11-26 20:58] LABS: Free T4 1.51 ng/dl (0.78-2.19)
[2024-11-26 20:58] LABS: Amphetamines Negative (Negative); Barbiturates Negative (Negative); Benzodiazepines Negative (Negative); Buprenorphine Negative (Negative); Cocaine Negative (Negative); Marijuana Negative (Negative); Methadone Negative (Negative); Methamphetamines Negative (Negative); Opiates Negative (Negative); Phencyclidine Negative (Negative); Tricyclic Antidepressants Negative (Negative)
[2024-11-26 21:38] LABS: Lactic Acid 0.7 mmol/L (0.7-2.0)
[2024-11-26] MEDS: FLAGYL 500 MG 100 IV (22:46)
[2024-11-26] MEDS: D5LR 1000 IV (22:46)
[2024-11-26] MEDS: STERILE WATER FOR INJECTION 10 ML IV (23:08)
[2024-11-26] MEDS: MAXIPIME 2000 MG IV (23:08)
--- NOTE | 2024-11-26 23:48 | PTCARENOTE ---
Received patient drowsy, AAOx3, following commands, denying pain. Sinus paola 50s-60s, titrating epinephrine per protocol to maintain HR>60 and MAP>65. Temp 95.9, bairhugger ongoing. Weak pedal pulses b/l, BP stable. 98% on 3 liters, lung sounds
diminished throughout, fine crackles in the bases. Abdomen soft, round, positive bowel sounds. Louis in place draining yellow urine. Skin intact, PIVs patent, WNL. IVF ongoing. Family at bedside, call licea within reach.
[2024-11-27] VITALS (62 sets, daily range): BP systolic 85–181; BP diastolic 53–135; PULSE 2–85; BMI 23.2
--- NOTE | 2024-11-27 04:20 | PTCARENOTE ---
Epinephrine gtt off since 219, otherwise patient assessment unchanged from previous. Bairhugger off since 99. Family remains at bedside.
[2024-11-27 04:30] LABS: Hematocrit 31.1 % (37.0-47.0); Hemoglobin 10.1 g/dL (12.0-16.0); Mean Corp Hgb Conc. 32.5 g/dL (33.0-37.0); Mean Corpuscular Hgb 30.4 pg (27.0-31.0); Mean Corpuscular Volume 93.7 fL (81.0-99.0); Mean Platelet Volume 12.5 fL (7.4-10.4); Platelet Count 61 10^3/uL (130-400); Red Blood Cell Count 3.32 10^6/uL (4.20-5.40); Red Cell Dist. Width 15.7 % (11.5-14.5); White Blood Cell Count 3.2 10^3/uL (4.8-10.8)
[2024-11-27 05:22] LABS: Creatine Phosphokinase 28 U/L (30-135)
[2024-11-27 05:52] LABS: Cortisol, Random 17.8 ug/dl
[2024-11-27 05:54] LABS: Hepatitis B Surface Antigen Negative (Negative)
[2024-11-27 05:59] LABS: Hepatitis A IgM Antibody Negative (Negative); Hepatitis B Core Ab, IgM Negative (Negative)
[2024-11-27 06:11] LABS: Hepatitis B Surface Antibody Negative; Hepatitis C Antibody Negative (Negative)
--- NOTE | 2024-11-27 07:39 | W.PN.HOSP.TC ---
Today's Communication/Plan
-
Continue supportive therapy, continue monitoring blood pressure, continue antibiotics, echocardiogram today.
Assessment / Plan
Assessment / Plan
Assessment:
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
past few weeks. Patient was found to be bradycardic in the ED and given a dose of atropine and started on an epinephrine drip. Patient was admitted to the ICU. Patient underwent head CT which did not show any changes. Chest X-Ray showed some
possible bilateral opacities showing possible pneumonia versus atelectasis. Patient continues to be on antibiotic treatment and epinephrine drip to keep heart rate and blood pressure up. Patient scheduled to get echocardiogram done today.
CXR (11/26/2024):
Large hiatal hernia/partially intrathoracic stomach, probably increased in size compared to previous radiograph of August 03, 2023.
Small left pleural effusion, which appears increased compared to previous radiograph. Parenchymal opacity within the left lower lung is most likely atelectasis, but underlying pneumonia difficult to exclude.
Patchy parenchymal opacity within the right lower lung is new from previous radiograph, with main differential considerations of pneumonia and/or atelectasis.
No evidence for pulmonary edema pattern.
CT Head w/o IV Contrast (11/26/2024):
No evidence of acute intracranial abnormality.
U/S Abd (11/26/2024):
Gallbladder appears within normal limits with no evidence for biliary ductal dilation. No focal abnormality of the liver.
Small right pleural effusion.
Minimal free fluid in the region of the hepatorenal fossa.
The pancreas and abdominal aorta are unable to be adequately visualized.
Mild to moderate renal parenchymal loss involving the right kidney with slightly irregular contour suggesting possible scarring.
Normal appearance of the left kidney.
Plan:
#Symptomatic bradycardia
- Seen on EKG as above
- admitted to ICU due to requirement of epinephrine gtt (to keep pulse >60, MAP >65)
- holding propranolol
- awaiting echo this morning
- most likely the cause of somnolence and altered mental status
- Cortisol levels - Random cortisol 17.8
- cardiology consulted, input appreciated
#Hypoxia requiring supplemental oxygen
- CXR showed
- Requiring 3 L of oxygen at the moment, will try to wean off as possible
- neg flu, neg COVID
- Awaiting Blood cx
- Was started on IV ceftriaxone/azithromycin
- Was changed to Cefepime/Metronidazole
- Procalcitonin negative
- supportive measures with oxygen as needed
# Sepsis/Hypothermia
- Blood and Urine cx pending
- inflammatory markers
- normal tsh, and free t4
- warming measures and abx treatment with Cefepime/Metronidazole
- ID Consulted, input appreciated
- Now normotensive, continue monitoring temperatures
#Altered Mental Status most likely due to persistent bradycardia
- CT scan findings as above (No acute findings seen)
- Continued treatment of Bradycardia with Epinephrine
- Echocardiogram to be done today
#Transaminitis
- U/S negative for any acute findings
- Hepatitis panel negative
- No alcohol levels seen
- possibly due to bradycardia causing hypoperfusion of liver
- Elevated transaminases again, may be due to sepsis
- GI consulted to help with further management, input appreciated
DVT Prophylaxis - Lovenox
Full Code
Anticipated Discharge: > 48 hours
Subjective/Interval History
-
Date of Service: November 27, 2024
Patient seen at bedside with her family. Patient was a bit lethargic and somnolent however was able to follow directions when awoken. Family states that her condition has been progressively getting worse over the past few weeks and she has been
feeling very weak at home. Patient says that her condition was a bit better than before but patient's was feeling pretty groggy and sleep.
Objective Data
-
Labs:
Laboratory Results
11/27/24
04:04
WBC 3.2 L
Hgb 10.1 L
Hct 31.1 L
Plt Count 61 L
Sodium Pending
Potassium Pending
Chloride Pending
Carbon Dioxide Pending
BUN Pending
Creatinine Pending
Glucose Pending
Calcium Pending
Total Bilirubin Pending
AST Pending
ALT Pending
Alkaline Phosphatase Pending
Vital Signs:
Vital Signs
Temp Pulse Resp BP Pulse Ox
97.5 F 69 11 93/56 99
11/27/24 01:00 11/27/24 06:00 11/27/24 06:00 11/27/24 06:00 11/27/24 06:00
I&O
11/26/24 11/27/24 11/28/24
06:59 06:59 06:59
Intake Total 740 / 740
Output Total 295 / 295
Balance 445 / 445
Review of Systems
-
History Source: Patient and Family
Constitutional: Reports Fatigue
EENT: Reports No Symptoms Reported
Respiratory: Reports Trouble Breathing; Denies Cough or Wheezing
Cardiac: Denies Chest Pain, Palpitations or Syncope
Abdomen/GI: Denies Abdominal Pain, Nausea or Vomiting
Genitourinary: Reports No Symptoms
Musculoskeletal: Reports No Symptoms
Skin: Reports No Symptoms
Neuro: Reports No Symptoms
Endocrine: Reports No Symptoms
Hematologic / Lymphatic: Reports No Symptoms
Allergy / Immunology: Reports No Symptoms
Physical Exam
-
General: Well Developed, No Apparent Distress and Comfortable
HEENT: Normocephalic, Atraumatic and Oxygen (3 L)
Respiratory: Clear to Auscultation and Non Labored Respirations
Cardiac: Regular Rhythm and S1/S2
GI: Soft, Nontender and Nondistended
Musculoskeletal: No Clubbing, No Cyanosis and No Edema
Skin: Warm
Neuro: Awake
Psych: Calm and Other (Somnolent and not very awake)
Data Reviewed
-
Diagnostic Radiology: Report Reviewed by me, Discussed with Physician, Discussed with Patient and Discussed with Family
CT Scan: Report Reviewed by me, Discussed with Physician, Discussed with Patient and Discussed with Family
Labs: Labs Reviewed by me, Discussed with Physician, Discussed with Patient and Discussed with Family
--- NOTE | 2024-11-27 07:54 | CON.INTV ---
Addendum entered and electronically signed by Marco Morales MD 11/27/24 13:07:
-Patient staying off Epinephrine infusion, stable HR, transferring out of ICU
-Physical Therapy Assistant service will sign off, please call as needed.
Original Note:
Consultation
Consultation Request
Date/Time Consultation Requested: 11/26/2024
Date/Time Consultation Performed: 11/27/2024
Requesting Provider: Daniel Enrique
Performing Provider: Marco Morales
Reason for Consultation: Bradcardia
Medical History
-
Chief Complaint: Lethargy and weakness
History of Present Illness:
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
and lethargy over several weeks. Patient reportedly has been declining over the last few weeks with increased weakness, lethargy and easily falling asleep. Minimal symptoms of memory loss otherwise patient fairly able to communicate appropriately.
Also reported history of cough with frequent expectoration over the last few weeks. Patient goes through multiple tissues every day per patient's . Decreased p.o. intake reported. In the emergency room patient noted to be hypotensive,
hypoxic as well as bradycardic. She was given IV fluids, started on antibiotics and also received atropine followed by epinephrine infusion. Patient was admitted to the ICU in view of bradycardia and gas dispatcher consultation was requested for
further recommendations.
Past Medical History
Past Medical History: Reports Other (HTN, GERD, arthritis, C2 fracture, restless leg syndrome)
Past Surgical History: Reports Bowel Resection and Other (Hernia repair, bowel resection)
Additional Past Surgical History:
D&E, fracture right ankle repair
Social History
Tobacco: Non-smoker
Alcohol: Occasional (Once a week)
Personal:
Living: With Family
Employment: Retired
Family History
Family History: Not pertinent
Allergies / Home Medications
Allergies / Home Medications
Allergies
Allergy/AdvReac Type Severity Reaction Status Date / Time
paroxetine Allergy passed out Verified 04/04/24 13:50
Home Medications
�Medication �Instructions �Recorded �Confirmed �Last Taken �Type
docusate sodium 100 mg capsule 100 mg PO DAILYPRN PRN cosntipation 08/03/23 11/26/24 11/23/24 History
(Colace)
pravastatin 20 mg tablet 20 mg PO HS High Cholesterol 08/03/23 11/26/24 11/25/24 History
propranolol 10 mg tablet 10 mg PO BID #0 tabs 08/12/23 11/26/24 11/26/24 Rx
dextromethorphan-guaifenesin 30 1 tab PO [id number] PRN congestion 11/26/24 11/26/24 11/25/24 History
mg-600 mg tablet extended
hr (Mucinex DM)
losartan 100 mg tablet 100 mg PO DAILY 11/26/24 11/26/24 11/26/24 History
magnesium oxide 500 mg PO DAILY 11/26/24 11/26/24 11/26/24 History
nifedipine 30 mg tablet,extended 30 mg PO HS 11/26/24 11/26/24 11/25/24 History
release
ropinirole 2 mg tablet 2 mg PO HS 11/26/24 11/26/24 11/25/24 History
Review of Systems
-
History Source: Family
Vitals / Labs / Diagnostic Testing
Vital Signs
Temp Pulse Resp BP Pulse Ox
97.5 F 69 11 93/56 99
11/27/24 01:00 11/27/24 06:00 11/27/24 06:00 11/27/24 06:00 11/27/24 06:00
Lab Data
11/27/24 04:04
Microbiology
11/26/24 17:37 Nasal Swab Influenza Types A & B (GRAHAM) - Final
Negative for Influenza A & B, NAAT
Negative results must be combined with clinical observations
and patient history.
Nucleic Acid Amplification test (NAAT)performed on the
[employer] platform.
Diagnostic Testing:
Physical Exam
-
HEENT: Normocephalic and Other (Dry oral mucosa)
Cardiovascular: Regular Rhythm
Respiratory: Non-Labored Respirations
GI: Soft and Non Distended
Neurology: Awake and Oriented
Skin: Warm
General: Comfortable
Assessment
-
#1. Acute hypoxic respiratory failure with Hypotension, hypothermia with concern for Sepsis with Pneumonia
-Influenza screen negative. Blood and urine cultures pending
-CXR suggestive of bilateral PNA with ?left sided effusion, PCT 0.06 with normal lactate
-S/p IVF resuscitation and external warming along with Epinephrine
-D/c Cefepime/Falgyl and start Rocephin with Azithomycin
-Follow up on cultures
-Continue D5/LR infusion
#2. Symptomatic bradycardia
-Resolved, s/p Atropine and Epi infusion, off Epi now
-Hold Propranolol and Nifedipine
-TSH normal, Cortisol normal
-Telemetry
-Cardiology consult
#3. Metabolic encephalopathy
-CT head negative
-TSH normal.
-Avoid any sedating medication
-Check B12 level
-If symptoms persist despite treatment above, will pursue MRI
-Check VBG to see if any CO2 retention
#4. Mild hyperkalemia. Also elevated BUN/Cr ratio. Still apepars somewhat hypovolemic
-Continue IVF
-F/u electrolytes in afternoon
DVT and GI prophylaxis. Protonix and Lovenox
Critical Care time 60 mins -- The patient is admitted for acute critical illness for the treatment of vital organ failure and/or prevention of further life-threatening conditions. Total care includes time spent in review of history, physical exam,
medications, hemodynamic/ventilator parameters, laboratory data, imaging and discussion with house staff, pharmacy, respiratory therapy, in file operator, and nursing.
[2024-11-27 08:07] LABS: ALT (SGPT) 247 U/L (0-35); AST (SGOT) 331 U/L (14-36); Albumin 3.1 g/dl (3.5-5.0); Alkaline Phosphatase 247 U/L (38-126); Blood Urea Nitrogen 49 mg/dl (7-17); Calcium 8.7 mg/dl (8.4-10.2); Carbon Dioxide 27 mmol/L (22-30); Chloride 110 mmol/L (98-107); Estimated Creatinine Clearance 46 ml/min; Glucose 85 mg/dl (70-99); Potassium 5.3 mmol/L (3.5-5.1); Sodium 140 mmol/L (135-145); Total Bilirubin 0.3 mg/dl (0.2-1.3); eGFR > 60.00
[2024-11-27 08:28] LABS: Glycohemoglobin (HgbA1c) 5.6 % (4.0-5.6)
--- NOTE | 2024-11-27 08:38 | W.PN.UPDATE ---
Update Note
Progress Note Update
I saw and evaluated the patient. I reviewed the resident�s note and agree with findings and plan as documented in the resident�s note.
Gen: NAD, NCAT
CV: RRR, +S1/S2, no m/r/g.
Resp: CTAB, no rales, wheezes, or rhonchi.
Abd: +BS, soft, NT, ND
Skin: No rashes.
Neuro: sleeping
Psych: calm
CXR: Large hiatal hernia/partially intrathoracic stomach, probably increased in size compared to previous radiograph of August 03, 2023. Small left pleural effusion, which appears increased compared to previous radiograph. Parenchymal opacity
within the left lower lung is most likely atelectasis, but underlying pneumonia difficult to exclude. Patchy parenchymal opacity within the right lower lung is new from previous radiograph, with main differential considerations of pneumonia and/or
atelectasis. No evidence for pulmonary edema pattern.
CT brain: No evidence of acute intracranial abnormality.
Abd U/S: Gallbladder appears within normal limits with no evidence for biliary ductal dilation. No focal abnormality of the liver. Small right pleural effusion. Minimal free fluid in the region of the hepatorenal fossa. The pancreas and abdominal
aorta are unable to be adequately visualized. Mild to moderate renal parenchymal loss involving the right kidney with slightly irregular contour suggesting possible scarring. Normal appearance of the left kidney.
Echo: LV ejection fraction is 65-70%. No regional wall motion abnormalities are seen.
Normal right ventricular size and function.
Moderately dilated left atrium. Moderately dilated right atrium.
Mild aortic stenosis; peak/mean gradients 14/8 mmHg, calculated SHANNAN 1.7 cm2.
Trace aortic regurgitation.
Moderate to severe tricuspid regurgitation. Estimated pulmonary artery pressure
of 40-45 mmHg.
Symptomatic bradycardia:
-Hypotension and bradycardia s/p atropine
-ECG (read by me): SB @ 50, nl axis, 1st deg AVB with MT 204ms, no acute ST/TW changes
-was on epi gtt, now off
-holding home propranolol
-Fasting cortisol, TSH, free T4 normal
-cards following
-check echo
-HR improved
Hypothermia/bradycardia/leukopenia/hypoxia/acute metabolic encephalopathy:
-possible sepsis (POA), source unclear (doubt bacterial PNA as procal NEG, U/A contaminated with squamous cells)
-currently on empiric Flagyl/Cefepime
-COVID/Flu NEG
-follow BCxs
-warming measures
Transaminitis:
-likely due to possible sepsis vs alcohol use
-Acute viral hepatitis panel negative
Other problems:
Essential HTN: Holding all home antihypertensive medications with hypotension
Pancytopenia: likely due to bone marrow suppression from alcohol use vs possible sepsis
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
RLS
FULL/Lovenox
--- NOTE | 2024-11-27 09:00 | PTCARENOTE ---
pt awake and alert, garbled slow speech , NSR on monitor , BP 122/63, on 2L with sat of 98% , labs noted , family at bedside , included in ICU rounds
[2024-11-27] MEDS: NSS (PRESERVATIVE FREE) 10 ML IV (09:44)
[2024-11-27] MEDS: PROTONIX IV 40 MG IV (09:44)
--- NOTE | 2024-11-27 09:46 | CON.CAR ---
Addendum entered and electronically signed by Kaden Cannon MD 11/27/24 12:42:
Patient seen and examined in collaboration with PASTRY COOK HELPER; agree with below.
-79-year-old female with hypertension admitted with urosepsis and significant hypothermia; cardiology consulted for bradycardia.
-Now that the patient is normothermic and with holding of her propranolol, she is in normal sinus rhythm; heart rates have recovered.
-Mild tricuspid regurgitation. Estimated pulmonary artery pressure of 35-40 mmHg.
-Is on Levophed and antibiotics; continue to hold propranolol.
-Will reassess antihypertensive medication regimen once patient improves.
-Echocardiogram today revealed an LVEF of 65-70%, mild aortic stenosis, and moderate to severe TR with PASP 40-45 mmHg.
-Continue to monitor volume status for now; supportive care.
-Continue mfts; will continue to follow.
Original Note:
Consultation
Consultation Request
Date/Time Consultation Requested: 11/26/2024 22:00
Date/Time Consultation Performed: 11/27/2024 09:00
Requesting Provider: Dr. Enrique
Performing Provider: NARCISO Steel for Dr. Cannon
Reason for Consultation: Bradycardia
Medical History
-
Chief Complaint: Weakness
History of Present Illness:
Jesi Rodgers is an hypertension, restless leg syndrome, and bowel resection who presented to the emergency department with a chief complaint of weakness. The patient has been slowly declining for at least 2 weeks. She has been having increased
lethargy, slow response, slurred speech, and poor oral intake. This has all been witnessed by her . She has been sleeping through most of the day. They were concerned about a possible TIA and presented to the emergency department. She
presented hypothermic, hypotensive, and bradycardic. She was diagnosed with sepsis. Cardiology was consulted for bradycardia.
Past Medical History
Past Medical History: GERD, HTN and Other (RLS)
Past Surgical History: Bowel Resection
Social History
Tobacco: Non-Smoker
Alcohol: Occasional
Drug: None
Personal:
Living: With Family
Employment: Retired
Family History
Family History: Reviewed & Not Pertinent
Allergies / Home Medications
Allergy/AdvReac Type Severity Reaction Status Date / Time
paroxetine Allergy passed out Verified 04/04/24 13:50
�Medication �Instructions �Recorded �Confirmed �Type
docusate sodium 100 mg capsule 100 mg PO DAILYPRN PRN cosntipation 08/03/23 11/26/24 History
(Colace)
pravastatin 20 mg tablet 20 mg PO HS High Cholesterol 08/03/23 11/26/24 History
propranolol 10 mg tablet 10 mg PO BID #0 tabs 08/12/23 11/26/24 Rx
dextromethorphan-guaifenesin 30 1 tab PO [id number] PRN congestion 11/26/24 11/26/24 History
mg-600 mg tablet extended
[id number] hr (Mucinex DM)
losartan 100 mg tablet 100 mg PO DAILY 11/26/24 11/26/24 History
magnesium oxide 500 mg PO DAILY 11/26/24 11/26/24 History
nifedipine 30 mg tablet,extended 30 mg PO HS 11/26/24 11/26/24 History
release
ropinirole 2 mg tablet 2 mg PO HS 11/26/24 11/26/24 History
Review of Systems
-
Unable to obtain full review of systems at this time due to: Other (current mental status)
Physical Exam
Vital Signs
Temp Pulse Resp BP Pulse Ox
98.2 F 69 11 93/56 99
11/27/24 08:00 11/27/24 06:00 11/27/24 06:00 11/27/24 06:00 11/27/24 06:00
Lab Results
11/27/24 04:04
11/27/24 04:04
Troponin I < 0.012 ng/ml 11/26/24 17:37
Physical Exam
General: Well Developed, No Apparent Distress and Comfortable
HEENT: Normocephalic and Moist Mucous Membranes
Respiratory: Clear and Non Labored Respirations
Cardiac: S1/S2 and Regular Rhythm; Negative Peripheral Edema
Breast: Deferred by me
GI: Soft, Non Tender, Non Distended and Normal Bowel Sounds
Rectal: Deferred by Provider
Genito-urinary: No Costovertebral Tender
Musculoskeletal: No Clubbing, No Cyanosis and No Edema
Skin: Warm and Dry
Neuro: AO x 3
Hematologic/Lymphatic: No Lymphadenopathy
Psych: Calm
Impression / Plan
-
Sepsis
-Suspicious for urinary source, urine and blood cultures are pending
-Leukopenia, hypotension (resolved), hypothermia (resolved)
-Antibiotics per primary service
Change in mental status
-No acute findings on head CT
Bradycardia
-Resolved when she achieved normothermia
-Off epinephrine for several hours, in sinus rhythm
-TSH and free T4 within normal limits
Hypertension, presented hypotensive
-Hold agents for now while she is recovering from sepsis
Transaminitis, worsening, GI consulted
Chronic lower extremity lymphedema, none on exam, wears compression at home
Dyslipidemia, pravastatin on hold
RLS
Data Reviewed
-
EKG: Report Reviewed by me
Radiology: Report Reviewed by me
Labs: Labs Reviewed by me
Old Records: Reviewed
[2024-11-27] MEDS: D5LR 1000 IV (12:30)
--- NOTE | 2024-11-27 12:30 | CON.GI ---
Consultation
-
Date/Time Consultation Performed: 11/27/2024
Performing Provider: Bob Keller MD
Reason for Consultation: elevated LFT
Medical History
Chief Complaint / HPI
Chief Complaint: weakness
History of Present Illness:
The patient is an 79-year-old female with past medical history as noted who presents to the emergency room with fatigue and malaise. By report for about the past 2 weeks has been declining with lethargy and slow response with some slurred speech.
She came to the emergency room where she was found to be hypotensive, bradycardic and hypothermic. She was found to have probable UTI based on UA, culture still pending. Her bradycardia improved with improvement in her hypothermia. Currently she
denies any abdominal pain and has had no nausea or vomiting. She did have an incarcerated inguinal hernia in the past, status post small bowel resection and repair. On admission she was noted to be hypotensive, with blood pressure documented into
the 60s systolic, temporarily on pressors. Ultrasound showed no liver pathology, hepatitis panel negative, alcohol level negative. Echo showed moderate to severe TR, mild aortic stenosis, EF 65 to 70%.
Past Medical History
Past Medical History: Other (HTN, GERD, arthritis, C2 fracture, restless leg syndrome, incarcerated inguinal hernia)
Past Surgical History: Other (Bowel resection for ischemia from incarcerated hernia)
Social History
Tobacco: Non-Smoker
Alcohol: Occasional
Family History
Family History: Reviewed & Not Pertinent
Allergies / Home Medications
Allergy/AdvReac Type Severity Reaction Status Date / Time
paroxetine Allergy passed out Verified 04/04/24 13:50
�Medication �Instructions �Recorded
docusate sodium 100 mg capsule 100 mg PO DAILYPRN PRN cosntipation 08/03/23
(Colace)
pravastatin 20 mg tablet 20 mg PO HS High Cholesterol 08/03/23
propranolol 10 mg tablet 10 mg PO BID #0 tabs 08/12/23
dextromethorphan-guaifenesin 30 1 tab PO [id number] PRN congestion 11/26/24
mg-600 mg tablet extended
[id number] hr (Mucinex DM)
losartan 100 mg tablet 100 mg PO DAILY Blood Pressure 11/26/24
magnesium oxide 500 mg PO DAILY Electrolyte 11/26/24
Repletion
nifedipine 30 mg tablet,extended 30 mg PO HS Blood Pressure 11/26/24
release
ropinirole 2 mg tablet 2 mg PO HS Neurological Condition 11/26/24
Review of Systems
-
All other systems: A 12 pt ROS was Negative except as stated above in HPI
Vital Signs
Temp Pulse Resp BP Pulse Ox
97.9 F 69 11 93/56 99
11/27/24 11:15 11/27/24 06:00 11/27/24 06:00 11/27/24 06:00 11/27/24 06:00
Physical Exam
Exam
General: NAD, somnolent though arousable, oriented
HEENT: MMM, anicteric, no lymphadenopathy
Heart: Regular, no murmurs
Lungs: CTA bilaterally
Abdomen: normal bowel sounds, soft, no tenderness, no rebound or guarding, no masses, bruits or ascites
Extremeties: no edema
Skin: no rashes
Results
WBC 3.2 10^3/uL (4.8-10.8) L 11/27/24 04:04
Hgb 10.1 g/dL (12.0-16.0) L 11/27/24 04:04
Hct 31.1 % (37.0-47.0) L 11/27/24 04:04
MCV 93.7 fL (81.0-99.0) 11/27/24 04:04
Plt Count 61 10^3/uL (130-400) L 11/27/24 04:04
Absolute Neuts (auto) 3.7 10^3/uL (1.4-6.5) 11/26/24 13:18
Sodium 140 mmol/L (135-145) 11/27/24 04:04
Potassium 5.3 mmol/L (3.5-5.1) H 11/27/24 04:04
Chloride 110 mmol/L (98-107) H 11/27/24 04:04
Carbon Dioxide 27 mmol/L (22-30) 11/27/24 04:04
BUN 49 mg/dl (7-17) H 11/27/24 04:04
Creatinine 0.9 mg/dL (0.6-1.0) 11/27/24 04:04
Calcium 8.7 mg/dl (8.4-10.2) 11/27/24 04:04
Total Bilirubin 0.3 mg/dl (0.2-1.3) 11/27/24 04:04
AST 331 U/L (14-36) H 11/27/24 04:04
ALT 247 U/L (0-35) H 11/27/24 04:04
Alkaline Phosphatase 247 U/L (38-126) H 11/27/24 04:04
Hepatitis A IgM Ab Negative (Negative) 11/27/24 04:04
Hep Bs Antibody Negative 11/27/24 04:04
Hep B Core IgM Ab Negative (Negative) 11/27/24 04:04
Hepatitis C Antibody Negative (Negative) 11/27/24 04:04
Diagnostic Image Results:
US:IMPRESSION:
Gallbladder appears within normal limits with no evidence for biliary ductal dilation. No focal abnormality of the liver.
Small right pleural effusion.
Minimal free fluid in the region of the hepatorenal fossa.
The pancreas and abdominal aorta are unable to be adequately visualized.
Mild to moderate renal parenchymal loss involving the right kidney with slightly irregular contour suggesting possible scarring.
Normal appearance of the left kidney.
Prior GI Procedures:
EGD:
Colonoscopy:
Assessment / Plan
-
1. Elevated LFTs: In a mild necroinflammatory pattern, in the setting of hypotension, likely related to UTI, also with moderate to severe TR, likely multifactorial. Most likely more related to shock/low flow given documented hypotension, possibly
some component of of passive congestion given degree of tricuspid regurgitation. Ultrasound, hepatitis panel negative, no other GI symptoms. At this point we will continue to trend for now.
-
-
Thank you for consultation and allowing me to participate in the patient's care. Please call the installation technician GI physician during the after hours with any questions or concerns.
[2024-11-27] MEDS: FLAGYL 500 MG IV (12:31)
--- NOTE | 2024-11-27 12:59 | CON.ID ---
Consultation
-
Date/Time Consultation Requested: 11/26/2024 2222
Date/Time Consultation Performed: 11/27/2024 1243
Requesting Provider: Dr. Enrique
Performing Provider: Dr. Ho
Chief Complaint / Past History
Chief Complaint
Clinical sepsis
History of Present Illness
Jesi Rodgers is an 79-year-old female being evaluated in infectious ease consultation regarding clinical sepsis. History is obtained from chart review, along with patient interview.
In review of records, the patient appears to have had increasing fatigue over the past 2 months, with noted increasing lethargy and sleeping throughout the day. Additionally, she has noted to have a chronic cough that is also been going on for
approximately 2 months, with production of 'lots of phlegm'. Unknown fevers at home. Ultimately, due to her weakness and sluggishness, she was advised to have further evaluation in the hospital.
Upon arrival, she was found to be bradycardic (in the low 30s) and was found to be hypothermic. Chest x-ray revealed patchy infiltrates. Because of her bradycardia she was given atropine and started on an epinephrine drip, and admitted to the ICU.
She has been started on empiric antibiotics (Azithromycin/ceftriaxone), and Infectious Diseases is asked to comment upon further antimicrobial management.
Additional history from the who was present at the bedside indicates that the patient had been into see her physician approximately month ago, at which time some of her antihypertensive medications were changed/modified. Additionally, he
notes that over the past week, the patient may have been doubling up or missing some of her medication doses.
Past History
Additional Past Medical History:
GERD
HTN
Dyslipidemia
Restless legs syndrome
Additional Past Surgical History:
Bowel resection
Hernia repair
DNA
Right ankle fracture
Allergy History:
paroxetine Allergy (Verified 04/04/24 13:50)
passed out
Medications Reviewed: Yes
Current Antibiotics:
Azithromycin 500 mg IV every 24 hours
Ceftriaxone 1 g IV every 24 hours
Social History
Tobacco: Non-Smoker
Alcohol: Occasional
Drug: None
Personal:
Employment: Retired
Family History
Family History: Not Pertinent
Review of Systems
Vital Signs
Temp Pulse Resp BP Pulse Ox
97.9 F 69 11 93/56 99
11/27/24 11:15 11/27/24 06:00 11/27/24 06:00 11/27/24 06:00 11/27/24 06:00
Physical Exam
Physical Exam
Constitutional: Comfortable, Acutely Ill, Chronically Ill and Non-toxic
Head: Normocephalic
Eyes: Pupils Equal, Pupils Round, No Conjunctival Hemorrhage and Sclera Anicteric
Oral: No Thrush and No Ulcers
Cardiovascular: Regular Rate, S1/S2 and Murmur; Negative S3/S4
Pulmonary: Non Labored; Negative Wheezes, Rales or Rhonchi
Gastrointestinal: Soft, Non Tender, Non Distended and Normal Bowel Sounds
Extremities: Negative Edema, Cyanosis or Erythema
Musculoskeletal: Negative Joint Swelling or Joint Effusion
Skin: Warm and Dry; Negative Rash or Jaundice
Neurological: Awake and Alert
Psychological: Calm
.
Lab / Diagnostic Study Results
11/27/24 04:04
Abs Immat Gran (auto) 0.0 10^3/uL (0-0.05) 11/26/24 13:18
Absolute Neuts (auto) 3.7 10^3/uL (1.4-6.5) 11/26/24 13:18
Absolute Lymphs (auto) 0.6 10^3/uL (1.2-3.4) L 11/26/24 13:18
Absolute Monos (auto) 0.4 10^3/uL (0.1-0.6) 11/26/24 13:18
Absolute Basos (auto) 0.0 10^3/uL (0-0.2) 11/26/24 13:18
Immature Gran % 0.2 % (0-0.5) 11/26/24 13:18
Neutrophils % 77.9 % (42.2-75.2) H 11/26/24 13:18
Lymphocytes % 11.9 % (20.5-51.1) L 11/26/24 13:18
Monocytes % 8.3 % (1.7-9.3) 11/26/24 13:18
Eosinophils % 1.3 % (0-6) 11/26/24 13:18
Basophils % 0.4 % (0-2) 11/26/24 13:18
ESR 44 mm/hour (0-20) H 11/26/24 20:18
Lactic Acid Cancelled 11/26/24 22:01
C-Reactive Protein 18.20 mg/L (0.0-10.00) H 11/26/24 20:18
Procalcitonin 0.06 ng/ml (0.0-0.25) 11/26/24 20:18
Ur Squamous Epith Cells 26-30 /LPF (Few) 11/26/24 19:42
Microbiology Results
Micro:
11/26/24 19:42 Urine Culture - Pending
Urine
11/26/24 17:37 Influenza Types A & B (GRAHAM) - Final
Nasal Swab Negative for Influenza A & B, NAAT
Negative results must be combined with clinical observations
and patient history.
Nucleic Acid Amplification test (NAAT)performed on the
[employer] NOW platform.
11/26/24 17:37 Blood Culture - Pending
Blood/Venous
11/26/24 17:46 Blood Culture - Pending
Blood/Venous
Imaging:
11/26/2024 CXR (2 view): Large hiatal hernia/partially intrathoracic stomach, likely increased in size compared to previous radiograph of July 2023. Small left pleural effusion is noted. Parenchymal opacity within the left lower lung is most
likely atelectasis, but underlying pneumonia difficult to exclude. Patchy parenchymal opacity within the right lower lung is new and may be either pneumonia or atelectasis.
Assessment / Plan
Clinical sepsis
- multiple sources possible : lung, urine, bowel, other
Hypothermia; improved
Leukopenia
Thrombocytopenia
Bradycardia; improved
Hypertension; improved, now off pressors
Transaminitis
� Likely secondary to recent hypotension
Elevated CRP
Pyuria (without dysuria)
GERD
HTN
Dyslipidemia
Restless legs syndrome
Recommendations:
Continue with empiric antibiotics (Azithromycin, ceftriaxone)
Follow pending cultures.
Follow CXR
Trend LFTs
Monitor white count and temperature curve.
Monitor for clinical improvement.
Further recommendations as additional data is returned.
Care Review
Plan reviewed with: Nurse
[2024-11-27 13:11] LABS: Venous Blood Gas B.E. 1.7 mmol/L (-4 to +4); Venous Blood Gas HCO3 29.6 mmol/L (22-27); Venous Blood Gas O2 Sat % 99.8 %; Venous Blood Gas pCO2 63 mmHg (35-48); Venous Blood Gas pH 7.28 (7.32-7.43); Venous Blood Gas pO2 158 mmHg (30-50)
[2024-11-27 13:33] LABS: Blood Urea Nitrogen 43 mg/dl (7-17); Calcium 8.7 mg/dl (8.4-10.2); Carbon Dioxide 27 mmol/L (22-30); Chloride 107 mmol/L (98-107); Estimated Creatinine Clearance 41 ml/min; Glucose 87 mg/dl (70-99); Potassium 5.1 mmol/L (3.5-5.1); Sodium 140 mmol/L (135-145)
[2024-11-27] MEDS: STERILE WATER FOR INJECTION 10 ML IV (13:38)
[2024-11-27] MEDS: ROCEPHIN 1000 MG IV (13:39)
[2024-11-27] MEDS: FLUSH (NSS) IV ×2 (13:45→13:46)
[2024-11-27] MEDS: MAXIPIME IV (13:45)
--- NOTE | 2024-11-27 14:43 | CM ---
CM following rte: discharge planning.
Reviewed pt's chart, met with pt. Pt's and son Kennedy at bedside.
Pt is an 79 year old female,admitted with primary dx of Hypothermia/bradycardia/leukopenia/hypoxia/acute metabolic encephalopathy.
Pt lives with 2SH, 2 steps to enter, has 5 supportive children. per , pt has 4 walkers, stair glide, shower chair, BSC, received outpatient therapy at [facility] in the past. No VN or SNF history.
Per , pt has been very weak at home, at fall risk and he has to help the pt all the time. Per , pt might need to go to a SNF for a short term rehab and pt's stated he feels that pt will deny it.
PT and OT will evaluate the pt to determine a level of care at discharge.
PCP: Cindy Camp
Pharmacy: [facility]
D/c plan: most likely SNF for a short term rehab. preferred SNFs: [facility], [facility].
CM will follow with discharge plan updates as hospitalization progresses
[2024-11-27 15:38] LABS: B.E. 0 mmol/L; HCO3 27.1 mmol/L (21-28); O2 Saturation % 98.2 % (94-98); PCO2 55 mmHg (32-35); PO2 85 mmHg (83-108)
[2024-11-27] MEDS: ZITHROMAX INFUSION 250 IV (15:59)
[2024-11-27] MEDS: LOVENOX 40 MG SC (17:34)
--- NOTE | 2024-11-27 19:00 | PTCARENOTE ---
at 1230 patients becoming , obtunded , her heart rate back to 40s , temp down to 95.9 , Dr Morales noticed , she had a VBG drawn showing 7.28/63/158 she was placed on bipap and she had a repeat ABG at 1530 7.30/55/85 , she then had a CT scan
of the chest , her results showing MASSIVE HIATAL HERNIA containing the entire stomach and mid transverse colon.
2. Large amount of subpleural airspace consolidation in the left lower lobe adjacent to the hiatal hernia which is likely chronic compressive atelectasis and scarring.
3. Small to moderate-sized airspace consolidations in the superior segment of the right lower lobe and anterior segment of the right upper lobe which is most likely MULTIFOCAL PNEUMONIA given the location and morphology of the airspace
consolidations.
Dr Morales and Gemini aware , general surgery was consulted , current plan for patient to have NGT placed, she is now awake and oriented , Dr Morales spoke to family and pt is currently off of Bipap with plans to continue at HS
[2024-11-27] MEDS: REQUIP 2 MG PO (19:52)
[2024-11-27] MEDS: PROCARDIA XL (EXTENDED RELEASE) 30 MG PO (19:53)
--- NOTE | 2024-11-27 20:00 | PTCARENOTE ---
Rec'd pt awake, alert, [place], constantly moving legs, very anxious about restless legs- requip 2mg po given as ordered, bed alarm on, SR, bp elevated- Procardia XL 30mg po given as ordered, charisse hugger on for temp 96.1, weak distal pulses, O2 2 liters
nc, lungs decr, bibas crackles, sat 95, hypo bowel sounds, no bm, abd obese, no n/v, 3 attempts by 2 RN to insert NG tube- unsuccessful- Opal Izquierdo, QUILTER FIXER aware,rodriguez draining clear urine
--- NOTE | 2024-11-27 23:00 | PTCARENOTE ---
changed to bipap 15/5 w/ 2 liters o2 for the night
[2024-11-27] MEDS: STERILE WATER FOR INJECTION IV (23:32)
[2024-11-28] VITALS (22 sets, daily range): BP systolic 92–152; BP diastolic 56–92; PULSE 2–80; O2SAT 97; BMI 23.4
[2024-11-28] MEDS: D5LR 1000 IV ×2 (00:30→15:06)
--- NOTE | 2024-11-28 04:00 | PTCARENOTE ---
sys reviewed, lungs unch, sunita bipap, CHG bath done, linens changed
[2024-11-28 04:18] LABS: Venous Blood Gas B.E. 3.5 mmol/L (-4 to +4); Venous Blood Gas HCO3 29.5 mmol/L (22-27); Venous Blood Gas pCO2 51 mmHg (35-48); Venous Blood Gas pH 7.37 (7.32-7.43); Venous Blood Gas pO2 133 mmHg (30-50)
--- NOTE | 2024-11-28 04:45 | DOWNTIME ---
There was a [employer] Downtime on 11/28/2024 from 0100 to 11/29/2023 at 0420 . Downtime documentation of patient's care, including medication administrations, has been reconciled in the electronic record per guidelines. Refer to the
patient's paper chart under the miscellaneous tab to see printed paper medication records and downtime forms.
[2024-11-28 04:52] LABS: ALT (SGPT) 160 U/L (0-35); AST (SGOT) 150 U/L (14-36); Albumin 3.2 g/dl (3.5-5.0); Alkaline Phosphatase 208 U/L (38-126); Blood Urea Nitrogen 34 mg/dl (7-17); Calcium 8.9 mg/dl (8.4-10.2); Carbon Dioxide 29 mmol/L (22-30); Chloride 107 mmol/L (98-107); Estimated Creatinine Clearance 46 ml/min; Glucose 92 mg/dl (70-99); Potassium 4.6 mmol/L (3.5-5.1); Sodium 140 mmol/L (135-145); Total Bilirubin 0.4 mg/dl (0.2-1.3); Total Protein 5.9 g/dl (6.3-8.2); eGFR > 60.00
[2024-11-28 05:03] LABS: % Basophils 0.3 % (0-2); % Eosinophils 0.8 % (0-6); % Immature Granulocytes 0.5 % (0-0.5); % Lymphocytes 12.7 % (20.5-51.1); % Monocytes 9.2 % (1.7-9.3); % Neutrophils 76.5 % (42.2-75.2); Absolute Lymphocytes 0.5 10^3/uL (1.2-3.4); Absolute Monocytes 0.3 10^3/uL (0.1-0.6); Absolute Neutrophils 2.8 10^3/uL (1.4-6.5); Hematocrit 29.7 % (37.0-47.0); Hemoglobin 9.7 g/dL (12.0-16.0); Mean Corp Hgb Conc. 32.7 g/dL (33.0-37.0); Mean Corpuscular Hgb 30.6 pg (27.0-31.0); Mean Corpuscular Volume 93.7 fL (81.0-99.0); Mean Platelet Volume 12.2 fL (7.4-10.4); Nucleated Red Blood Cells % 0.5 %; Platelet Count 54 10^3/uL (130-400); Red Blood Cell Count 3.17 10^6/uL (4.20-5.40); Red Cell Dist. Width 15.7 % (11.5-14.5); White Blood Cell Count 3.7 10^3/uL (4.8-10.8)
[2024-11-28 05:11] LABS: Vitamin B12 323 pg/ml (239-931)
--- NOTE | 2024-11-28 05:34 | W.PN.GI.CBS2 ---
Today's Communication / Plan
-
Please see assessment and plan for details.
Assessment / Plan
-
1. Elevated LFTs: In a mild necroinflammatory pattern, in the setting of hypotension, also with moderate to severe TR, likely multifactorial. Most likely more related to shock/low flow given documented hypotension, possibly some component of of
passive congestion given degree of tricuspid regurgitation. Ultrasound, hepatitis panel negative, no other GI symptoms. LFTs improving, will hold on further workup for now.
2. Pancytopenia: Without evidence of gross bleeding, continue per internal medicine
We will sign off for now, please call back with any further questions.
Subjective
Subjective
Date of Service: November 28, 2024
Patient feeling okay, denying any abdominal pain, no nausea or vomiting, currently on BiPAP, still hypothermic overnight.
Objective
Data Reviewed
Laboratory Data:
Laboratory Results
11/28/24 03:40
11/28/24 03:40
Laboratory Results
Total Bilirubin 0.4 mg/dl (0.2-1.3) 11/28/24 03:40
AST 150 U/L (14-36) H 11/28/24 03:40
ALT 160 U/L (0-35) H 11/28/24 03:40
Alkaline Phosphatase 208 U/L (38-126) H 11/28/24 03:40
Vital Signs and I&O:
Vital Signs
Temp Pulse Resp BP Pulse Ox
97.2 F 63 16 105/59 97
11/28/24 04:00 11/28/24 05:00 11/28/24 05:00 11/28/24 05:00 11/28/24 05:00
I&O
11/26/24 11/27/24 11/28/24
06:59 06:59 06:59
Intake Total 740 / 820 1870 / 1870
Output Total 295 / 345 1535 / 1535
Balance 445 / 475 335 / 335
Physical Exam
Physical Exam
General: NAD
Abdomen: normal bowel sounds, soft, no tenderness, no masses or bruits, no ascites
--- NOTE | 2024-11-28 08:05 | W.PN.UPDATE ---
Update Note
Progress Note Update
I saw and evaluated the patient. I reviewed the resident�s note and agree with findings and plan as documented in the resident�s note.
Gen: NAD, Awake and alert, NCAT
CV: remains RRR, +S1/S2, no m/r/g.
Resp: CTAB anteriorly, no rales, wheezes, or rhonchi.
Abd: remains +BS, soft, NT, ND
Skin: No rashes.
Neuro: CN2-12 intact
Psych: normal mood and affect
11/26/24 17:37 Blood/Venous Blood Culture - Preliminary
No Growth in 24 hours- Final report to follow
11/26/24 17:46 Blood/Venous Blood Culture - Preliminary
No Growth in 24 hours- Final report to follow
11/26/24 17:37 Nasal Swab Influenza Types A & B (GRAHAM) - Final
Negative for Influenza A & B, NAAT
Negative results must be combined with clinical observations
and patient history.
Nucleic Acid Amplification test (NAAT)performed on the
[employer] NOW platform.
CXR: Large hiatal hernia/partially intrathoracic stomach, probably increased in size compared to previous radiograph of August 03, 2023. Small left pleural effusion, which appears increased compared to previous radiograph. Parenchymal opacity
within the left lower lung is most likely atelectasis, but underlying pneumonia difficult to exclude. Patchy parenchymal opacity within the right lower lung is new from previous radiograph, with main differential considerations of pneumonia and/or
atelectasis. No evidence for pulmonary edema pattern.
CT brain: No evidence of acute intracranial abnormality.
Abd U/S: Gallbladder appears within normal limits with no evidence for biliary ductal dilation. No focal abnormality of the liver. Small right pleural effusion. Minimal free fluid in the region of the hepatorenal fossa. The pancreas and abdominal
aorta are unable to be adequately visualized. Mild to moderate renal parenchymal loss involving the right kidney with slightly irregular contour suggesting possible scarring. Normal appearance of the left kidney.
Echo: LV ejection fraction is 65-70%. No regional wall motion abnormalities are seen.
Normal right ventricular size and function.
Moderately dilated left atrium. Moderately dilated right atrium.
Mild aortic stenosis; peak/mean gradients 14/8 mmHg, calculated SHANNAN 1.7 cm2.
Trace aortic regurgitation.
Moderate to severe tricuspid regurgitation. Estimated pulmonary artery pressure
of 40-[address] chest:
1. MASSIVE HIATAL HERNIA containing the entire stomach and mid transverse colon.
2. Large amount of subpleural airspace consolidation in the left lower lobe adjacent to the hiatal hernia which is likely chronic compressive atelectasis and scarring.
3. Small to moderate-sized airspace consolidations in the superior segment of the right lower lobe and anterior segment of the right upper lobe which is most likely MULTIFOCAL PNEUMONIA given the location and morphology of the airspace
consolidations.
4. Moderate subpleural airspace consolidation in the right lower lobe (either compressive atelectasis or pneumonia).
5. Small bilateral pleural effusions.
6. Moderate to severe air distention of the esophagus proximal to the hiatal hernia.
7. Mild cardiomegaly.
8. Severely exaggerated upper thoracic kyphosis and multilevel discogenic degenerative disease throughout the cervical, thoracic, and lumbar spine.
9. 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
Massive hiatal hernia:
-CT chest: MASSIVE HIATAL HERNIA containing the entire stomach and mid transverse colon.
-surgery c/s
-NGT attempted x 3 but failed
Symptomatic bradycardia:
-Hypotension and bradycardia s/p atropine
-ECG (read by me): SB @ 50, nl axis, 1st deg AVB with MT 204ms, no acute ST/TW changes
-was on epi gtt, now off
-holding home propranolol
-Fasting cortisol, TSH, free T4 normal
-cards following
-echo above
-HR has overall improved but has been labile
Sepsis, POA, due to R-sided multifocal PNA:
-presented with hypothermia/bradycardia/leukopenia/hypoxia/acute metabolic encephalopathy
-acute hypoxemic respiratory failure, was on BIPAP
-tom Rocephin/Azithro
-COVID/Flu NEG
-follow BCxs
-warming measures PRN
Transaminitis:
-likely due to possible sepsis/hypoperfusion/passive congestion from TR
-Acute viral hepatitis panel negative
-transaminases improving
-GI has signed off
Other problems:
Essential HTN: Holding all home antihypertensive medications with hypotension
Pancytopenia: likely due to bone marrow suppression due to sepsis
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
RLS
Pt's updated at bedside.
FULL/Lovenox
Total time spent on today's encounter was 50 minutes which included time spent in counseling the patient/family regarding diagnosis and treatment plan as listed above, goals of care, and symptom management. Case was discussed with nursing staff,
specialists, and care coordinators/case management. All labs and imaging personally reviewed by me. Remainder the time spent in detailed review of previous records, lab data, imaging, and other medical provider documentation.
--- NOTE | 2024-11-28 08:10 | PTCARENOTE ---
Assumed care of pt at 0715 following shift report. Pt awake and resting quietly in bed. and son in room. Bipap in use overnight, removed this AM by Resp Therapy- Pt on O2 at 3l/min w/ POx 99%. O2 decreased to 2l/min w/ POx 97%. Pt denies
pain or SOB. Louis patent and draining clear yellow urine. Physical assessment completed as documented. Ice chips provided at pt's request. Core Temp via Thermistor Louis = 97.2F Rocio Aram not currently in use. Comfort care provided. Call licea
w/in pt reach and safe environment maintained.
--- NOTE | 2024-11-28 08:30 | W.PN.HOSP.TC ---
Today's Communication/Plan
-
Patient to be evaluated by surgery later today. Continue on antibiotic therapy, treatment for hyponatremia, and continued breathing management. May be downgraded to IMU level today
Assessment / Plan
Assessment / Plan
Assessment:
79-year-old female with past medical history significant for ischemic bowel secondary to incarcerated hernia status post surgery 2022, hypertension, restless leg syndrome who presented to the [facility] due to weakness and lethargy over the
past few weeks. Patient was found to be bradycardic in the ED and given a dose of atropine and started on an epinephrine drip. Patient was admitted to the ICU. Patient underwent head CT which did not show any changes. Chest X-Ray showed some
possible bilateral opacities showing possible pneumonia versus atelectasis. Patient was started on antibiotics for pneumonia. Patient underwent a chest CT scan which showed massive hiatal hernia along with multifocal pneumonia. General surgery was
consulted for hernia repair, and antibiotics continued for pneumonia with further breathing management.
CXR (11/26/2024):
Large hiatal hernia/partially intrathoracic stomach, probably increased in size compared to previous radiograph of August 03, 2023.
Small left pleural effusion, which appears increased compared to previous radiograph. Parenchymal opacity within the left lower lung is most likely atelectasis, but underlying pneumonia difficult to exclude.
Patchy parenchymal opacity within the right lower lung is new from previous radiograph, with main differential considerations of pneumonia and/or atelectasis.
No evidence for pulmonary edema pattern.
CT Head w/o IV Contrast (11/26/2024):
No evidence of acute intracranial abnormality.
U/S Abd (11/26/2024):
Gallbladder appears within normal limits with no evidence for biliary ductal dilation. No focal abnormality of the liver.
Small right pleural effusion.
Minimal free fluid in the region of the hepatorenal fossa.
The pancreas and abdominal aorta are unable to be adequately visualized.
Mild to moderate renal parenchymal loss involving the right kidney with slightly irregular contour suggesting possible scarring.
Normal appearance of the left kidney.
Echocardiogram (11/27/2024):
LV ejection fraction is 65-70%. No regional wall motion abnormalities are seen.
Normal right ventricular size and function.
Moderately dilated left atrium. Moderately dilated right atrium.
Mild aortic stenosis; peak/mean gradients 14/8 mmHg, calculated SHANNAN 1.7 cm2.
Trace aortic regurgitation.
Moderate to severe tricuspid regurgitation. Estimated pulmonary artery pressure
of 40-[address] Chest W/o Iv Contrast (11/27/2024):
1. MASSIVE HIATAL HERNIA containing the entire stomach and mid transverse colon.
2. Large amount of subpleural airspace consolidation in the left lower lobe adjacent to the hiatal hernia which is likely chronic compressive atelectasis and scarring.
3. Small to moderate-sized airspace consolidations in the superior segment of the right lower lobe and anterior segment of the right upper lobe which is most likely MULTIFOCAL PNEUMONIA given the location and morphology of the airspace
consolidations.
4. Moderate subpleural airspace consolidation in the right lower lobe (either compressive atelectasis or pneumonia).
5. Small bilateral pleural effusions.
6. Moderate to severe air distention of the esophagus proximal to the hiatal hernia.
7. Mild cardiomegaly.
8. Severely exaggerated upper thoracic kyphosis and multilevel discogenic degenerative disease throughout the cervical, thoracic, and lumbar spine.
9. 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
Plan:
#Symptomatic bradycardia
- Seen on EKG as above
- admitted to ICU due to requirement of epinephrine gtt (to keep pulse >60, MAP >65)
- holding propranolol
- Echocardiogram showed moderate to severe tricuspid regurgitation with pulmonary artery pressure of 40-45 mmHg and left ejection fraction of 65-70%
- most likely the cause of somnolence and altered mental status
- Cortisol levels - Random cortisol 17.8
- cardiology consulted, input appreciated
- Following CT scan, bradycardia most likely due to massive hiatal hernia
- Patient was started on nifedipine
# Massive hiatal hernia seen on CT scan
- CT chest results as above
- Most likely causing patient's symptoms including bradycardia
- Most likely predisposed patient to getting pneumonia
- Surgery team consulted, input appreciated
- Patient will most likely will undergo hiatal hernia repair
#Hypoxia requiring supplemental oxygen
- Chest x-ray results as above
- Chest CT results as above
- Requiring BiPAP as needed
- neg flu, neg COVID
- Blood cultures show no growth
- Procalcitonin negative
- Continue IV ceftriaxone/azithromycin for pneumonia
- supportive measures with supplemental oxygen as needed
# Sepsis/Hypothermia secondary to pneumonia
- Blood cultures negative, urine cultures pending
- Patient on lactated Ringer's with dextrose for fluids
- inflammatory markers
- normal tsh, and free t4
- warming measures and abx treatment with Cefepime/Metronidazole
- ID Consulted, input appreciated
- Now normotensive, continue monitoring temperatures
#Altered Mental Status most likely due to persistent bradycardia
- CT scan findings as above (No acute findings seen)
- Patient has been off of the epinephrine now
- Mental status has improved
- Patient on ropinirole
#Transaminitis
- U/S negative for any acute findings
- Hepatitis panel negative
- No alcohol levels seen
- Probably secondary to his sepsis from pneumonia
- GI was consulted to help with further management, input appreciated
- GI signed off, as ultrasound/hepatitis panel/further workup was negative
- LFTs trending down
DVT Prophylaxis - Lovenox
Full Code
Anticipated Discharge: > 48 hours
Subjective/Interval History
-
Date of Service: November 28, 2024
Patient seen with at bedside. Was awake but on BiPAP so unable to communicate too much. Talked with nurse who said that patient had to be placed on BiPAP last night, and was hypothermic. Also had some hypertension plus increased heart
rate yesterday.
Objective Data
-
Labs:
Laboratory Results
11/28/24
03:40
WBC 3.7 L
Hgb 9.7 L
Hct 29.7 L
Plt Count 54 L
Sodium 140
Potassium 4.6
Chloride 107
Carbon Dioxide 29
BUN 34 H
Creatinine 0.9
Glucose 92
Calcium 8.9
Total Bilirubin 0.4
AST 150 H
ALT 160 H
Alkaline Phosphatase 208 H
Vital Signs:
Vital Signs
Temp Pulse Resp BP Pulse Ox
97.3 F 63 15 108/68 96
11/28/24 07:52 11/28/24 06:00 11/28/24 06:00 11/28/24 06:00 11/28/24 06:00
I&O
11/27/24 11/28/24 11/29/24
06:59 06:59 06:59
Intake Total 740 / 820 1950 / 1950
Output Total 295 / 345 1565 / 1565
Balance 445 / 475 385 / 385
Review of Systems
-
History Source: Patient and Family
Respiratory: Denies Cough or Trouble Breathing
Cardiac: Denies Chest Pain or Palpitations
Abdomen/GI: Reports No Symptoms
Physical Exam
-
General: No Apparent Distress and Comfortable
HEENT: Normocephalic, Atraumatic and Oxygen (On BiPAP)
Respiratory: Non Labored Respirations
Cardiac: Regular Rhythm and S1/S2
GI: Soft, Nontender and Nondistended
Skin: Warm
Neuro: Awake and Alert
Psych: Calm
Data Reviewed
-
CT Scan: Report Reviewed by me, Discussed with Physician, Discussed with Nurse, Discussed with Patient and Discussed with Family
Medical Tests (Nuc Med, Echo etc): Report Reviewed by me, Discussed with Physician, Discussed with Nurse, Discussed with Patient and Discussed with Family
Labs: Labs Reviewed by me, Discussed with Physician, Discussed with Nurse, Discussed with Patient and Discussed with Family
--- NOTE | 2024-11-28 09:44 | W.PN.CD ---
Today's Communication / Plan
-
hold beta leela
trend tele
Impression / Plan
-
Large hiatal hernia
-discussed with hospitalist: needs surgical evaluation
-from cardiac perspective, she is intermediate risk, and no additional testing recommended at this time
Bradycardia
-echo 11/27: EF 65-70%, mild , nl RV, moderate/severe TR, PASP 45
-in setting of hypothermia/sepsis, and beta leela therapy
-continue to hold beta leela
Hypertension, but now with hypotension/sepsis
-beta leela held for bradycardia
-will assess to resume meds as she recovers (nifedipine, losartan, propranolol)
Sepsis: in setting of PNA
-Abx per hospitalist
Transaminitis, worsening, GI consulted
Chronic lower extremity lymphedema
Dyslipidemia, pravastatin on hold due to abnormal LFT
Valvular heart disease
Physical Exam
Vital Signs/Labs
Vital Signs
Temp Pulse Resp BP Pulse Ox
97.3 F 63 15 108/68 96
11/28/24 07:52 11/28/24 06:00 11/28/24 06:00 11/28/24 06:00 11/28/24 06:00
11/27/24 11/28/24 11/29/24
06:59 06:59 06:59
Actual Weight 65.3 kg 65.6 kg
11/28/24 03:40
11/28/24 03:40
TSH 3.32 uIU/ml (0.47-4.68) 11/26/24 17:37
Free T4 1.51 ng/dl (0.78-2.19) 11/26/24 20:18
LAB Results
11/26/24
17:37
Troponin I < 0.012
Physical Exam
Constitutional: No acute distress
EENT: Moist mucous membranes
Cardiovascular: Rhythm & rate is regular, Pedal edema is absent, JVD pressure is normal and Systolic murmur present
Respiratory: Respiratory effort normal and Lungs clear to auscul.
Neuro/Psych: AO x 3
Data Reviewed
-
Date of Service: November 28, 2024
EKG: Other (Tele: SB/SR 50s-80s)
Echo: Report Reviewed by me
Labs: Labs Reviewed by me
--- NOTE | 2024-11-28 11:37 | W.PN.ID1 ---
Date of Service
Date of Service: November 28, 2024
Today's Communication
Continue current empiric antibiotics.
Assessment / Plan
Clinical sepsis
-Appears overall improved today.
- Cultures negative to date, and patient without leukocytosis
Hypothermia; improved
Leukopenia
Thrombocytopenia
Bradycardia; improved
Hypertension; improved, now off pressors
Transaminitis
� Likely secondary to recent hypotension
- Improved today
Elevated CRP
Pyuria (without dysuria)
GERD
HTN
Dyslipidemia
Restless legs syndrome
Recommendations:
Continue with empiric antibiotics (Azithromycin, ceftriaxone)
Follow pending cultures.
Follow CXR
Trend LFTs
Monitor white count and temperature curve.
Monitor for clinical improvement.
Further recommendations as additional data is returned.
����������������������������������������������������������
Chief Complaint
-: Clinical Sepsis and Pneumonia
Subjective / Review of Systems
Patient seen and examined. Reports feeling improved today. Family at bedside reports that patient has improved mental acuity.
Vital Signs / Physical Exam
Vital Signs
Vital Signs
Temp Pulse Resp BP Pulse Ox
96.4 F L 63 15 108/68 98
11/28/24 11:23 11/28/24 06:00 11/28/24 06:00 11/28/24 06:00 11/28/24 07:50
Physical Exam
Constitutional: Comfortable and Non-toxic
Eyes: Sclera Anicteric
Cardiovascular: Regular Rate, S1/S2 and Murmur; Negative S3/S4
Pulmonary: Non Labored; Negative Wheezes, Rales or Rhonchi
Gastrointestinal: Soft, Non Tender, Non Distended and Normal Bowel Sounds
Extremities: Negative Edema, Cyanosis or Erythema
Skin: Warm and Dry
Neurological: Awake and Alert
Psychological: Calm
Objective Data
Lab Data
Lab Results
11/28/24 03:40
11/28/24 03:40
ESR 44 mm/hour (0-20) H 11/26/24 20:18
Estimated Creat Clear 46 ml/min 11/28/24 03:40
Lactic Acid Cancelled 11/26/24 22:01
Total Bilirubin 0.4 mg/dl (0.2-1.3) 11/28/24 03:40
GGT 30 U/L (12-43) 11/26/24 20:18
AST 150 U/L (14-36) H 11/28/24 03:40
ALT 160 U/L (0-35) H 11/28/24 03:40
Alkaline Phosphatase 208 U/L (38-126) H 11/28/24 03:40
C-Reactive Protein 18.20 mg/L (0.0-10.00) H 11/26/24 20:18
Most recent labs reviewed.
Micro Results:
11/26/24 17:37 Blood Culture - Preliminary
Blood/Venous No Growth in 24 hours- Final report to follow
11/26/24 17:46 Blood Culture - Preliminary
Blood/Venous No Growth in 24 hours- Final report to follow
11/26/24 19:42 Urine Culture - Pending
Urine
11/26/24 17:37 Influenza Types A & B (GRAHAM) - Final
Nasal Swab Negative for Influenza A & B, NAAT
Negative results must be combined with clinical observations
and patient history.
Nucleic Acid Amplification test (NAAT)performed on the
[employer] platform.
Imaging:
11/26/2024 CXR (2 view): Large hiatal hernia/partially intrathoracic stomach, likely increased in size compared to previous radiograph of July 2023. Small left pleural effusion is noted. Parenchymal opacity within the left lower lung is most
likely atelectasis, but underlying pneumonia difficult to exclude. Patchy parenchymal opacity within the right lower lung is new and may be either pneumonia or atelectasis.
--- NOTE | 2024-11-28 12:12 | PTOTSP ---
Speech Therapy Evaluation:
Pt with acute risk factors of dysphagia including acute hypoxic respiratory failure with concern for sepsis 2/[address] with small to moderate-sized airspace consolidations in the superior segment of the right lower lobe and anterior segment
of the right upper lobe which is most likely multifocal PNA given the location and morphology of the airspace consolidations. No overt s/sx of aspiration at bedside across trials, however cannot rule out silent aspiration given acute medical illness
with the aforementioned areas of concern. VSE ordered with ST consult. Recommend diet pending results of VSE.
Recommend:
1. Temporary NPO
2. VSE to further assess oropharyngeal swallow function
3. LINEN ROOM SUPERVISOR to follow pending results of VSE
--- NOTE | 2024-11-28 12:38 | CON.GS ---
Consultation
-
Requesting Provider: Gemini
Performing Provider: Juve
Reason for Consultation: Type IV PEH
Medical History
-
Chief Complaint: Lethargy
History of Present Illness:
79F with several weeks of diminished appetite, Poor PO intake, lethargy presented to ED for these progressive symptoms. Known to our service for emergent laparoscopic left inguinal hernia repair with SBR that required counter incision for reduction.
Repair was performed by inverting the sac and ligating with PDS endoloop, no mesh was placed. Admitted via ED 2 days ago and dx'ed with bradycardia/hypotension and was briefly on pressors but is no longer requiring pressor support. Also dx'ed with
PNA, ID is following. CT chest showed a large type IV PEH prompting surgical consult. Patient is less comunicative but and son are present for encounter and help with history. They describe lethargy and somnolence that includes falling
asleep during meals, frequent coughing, and he is concerned about falls 2/2 lethargy.
Past Medical History
Past Medical History: Other (HTN, GERD, arthritis, C2 fracture, restless leg syndrome, incarcerated left inguinal hernia 09/03)
Past Surgical History: Other (as per HPI)
Social History
Tobacco: Non-Smoker
Alcohol: Occasional
Personal:
Living: With Family
Family History
Family History: Reviewed & Noncontributory
Allergies / Home Medications
Allergy/AdvReac Type Severity Reaction Status Date / Time
paroxetine Allergy passed out Verified 04/04/24 13:50
�Medication �Instructions �Recorded �Confirmed �Type
docusate sodium 100 mg capsule 100 mg PO DAILYPRN PRN cosntipation 08/03/23 11/26/24 History
(Colace)
pravastatin 20 mg tablet 20 mg PO HS High Cholesterol 08/03/23 11/26/24 History
propranolol 10 mg tablet 10 mg PO BID #0 tabs 08/12/23 11/26/24 Rx
dextromethorphan-guaifenesin 30 1 tab PO [id number] PRN congestion 11/26/24 11/26/24 History
mg-600 mg tablet extended
[id number] hr (Mucinex DM)
losartan 100 mg tablet 100 mg PO DAILY Blood Pressure 11/26/24 11/26/24 History
magnesium oxide 500 mg PO DAILY Electrolyte 11/26/24 11/26/24 History
Repletion
nifedipine 30 mg tablet,extended 30 mg PO HS Blood Pressure 11/26/24 11/26/24 History
release
ropinirole 2 mg tablet 2 mg PO HS Neurological Condition 11/26/24 11/26/24 History
Review of Systems
-
A 10 point review of systems was completed, and was negative except as per HPI.
Physical Exam
Vital Signs
Temp Pulse Resp BP Pulse Ox
96.4 F L 63 15 108/68 98
11/28/24 11:23 11/28/24 06:00 11/28/24 06:00 11/28/24 06:00 11/28/24 07:50
11/27/24 11/28/24 11/29/24
06:59 06:59 06:59
Actual Weight 65.3 kg 65.6 kg
Body Mass Index (BMI) 23.4
Lab Results
11/28/24 03:40
11/28/24 03:40
WBC 3.7 10^3/uL (4.8-10.8) L 11/28/24 03:40
Hgb 9.7 g/dL (12.0-16.0) L 11/28/24 03:40
Hct 29.7 % (37.0-47.0) L 11/28/24 03:40
Plt Count 54 10^3/uL (130-400) L 11/28/24 03:40
Abs Immat Gran (auto) 0.0 10^3/uL (0-0.05) 11/28/24 03:40
Neutrophils % 76.5 % (42.2-75.2) H 11/28/24 03:40
Physical Exam
General: No Apparent Distress
GI: Soft and Non Tender
Skin: Warm and Dry
Neuro: Awake
Psych: Calm
Data Reviewed
-
CT Scan: Image Personally Visualized and interpreted, Report Reviewed by me, Discussed with Physician, Discussed with Patient and Discussed with Family
Labs: Labs Reviewed by me
Old Records: Reviewed
Assessment / Plan
-
79F with large type IV PEH involving stomach and transverse colon, several weeks of lethargy and likely aspiration PNA
Hypothermic, otherwise VSS, briefly in ICU and on pressors but transferred out and no longer on pressors
Satting well on 2L NC, required BiPAP overnight
ID following for PNA
PEH increased in size since 2022, pt has not followed up with regard to the groin hernia for definitive repair
Plan:
Formal swallow eval
Potential for starting diet pending result of above
IV abx per ID
Wean O2
Pulm toileting
Long discussion with patient and family about surgery. Typically repair is not done in the acute setting. In the absence of threat to the hernia contents there is no indication for emergent surgical intervention. Discussions about need for and
timing of surgery will depend on ability to advance diet (degree of aspiration), recovery from PNA and pulmonary status, priority of definitive groin hernia repair. I advised them that some of her chronic issues may be caused by age related decline,
and that PEH repair is potentially a long operation and it may not reverse this decline. Surgery will continue to follow.
[2024-11-28] MEDS: STERILE WATER FOR INJECTION IV ×2 (12:42→23:05)
--- NOTE | 2024-11-28 13:28 | W.PN.INTV ---
Today's Communication / Plan
Recommendations
-Monitor off BIPAP, check VBG in evening
-Can transfer out of ICU
-If Hypercapnia stays compensated, may stay off BIPAP
Assessment
-
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
and lethargy over several weeks. Patient reportedly has been declining over the last few weeks with increased weakness, lethargy and easily falling asleep. Minimal symptoms of memory loss otherwise patient fairly able to communicate appropriately.
Also reported history of cough with frequent expectoration over the last few weeks. Patient goes through multiple tissues every day per patient's . Decreased p.o. intake reported. In the emergency room patient noted to be hypotensive,
hypoxic as well as bradycardic. She was given IV fluids, started on antibiotics and also received atropine followed by epinephrine infusion. Patient was admitted to the ICU in view of bradycardia and reporting manager consultation was requested for
further recommendations.
Patient continued to stay encephalopathy and VBG suggested acute on chronic hypercapnia, which responded well to BIPAP.
#1. Acute hypoxic respiratory failure with Hypotension, hypothermia with Aspiration pneumonia
-Influenza screen negative. Blood and urine cultures negative so far
-S/p IVF resuscitation and external warming along with Epinephrine,
-Rocephin and Azithromycin
-Follow up on cultures
-Continue D5/LR infusion, can stop once PO intake improved
#2. Symptomatic bradycardia
-Resolved, s/p Atropine and Epi infusion, off Epi now
-Holding Propranolol and Nifedipine
-TSH normal, Cortisol normal
-Telemetry
-Cardiology consult
-[place] to be related to hypothermia, acute critical illness, improved
#3. Metabolic encephalopathy, complicated by hypercapnia
-Improved
-CT head, TSH, B12 unremarkable
-Avoiding any sedating medication
#4. Acute on chronic hypercapnic respiratory failure
-Suspect chronic restrictive lung disease due to large hiatal hernia with stomach and colon sitting in thoracic cavity. Exacerbated by bilateral aspiration pneumonia
-Responded well to BIPAP with improved CO2 and mental status. VBG 7.37/51 now, reflective of chronic compensated hypercapnia
-Monitor off BIPAP with f/u VBG later today
#5. Very large intra thoracic hiatal hernia
-Speech therapy eval
-Video swallow eval
-Gen surgery service on case
-NG could not be placed despite multiple attempts
#6. Mild hyperkalemia. Also elevated BUN/Cr ratio. Hypovolemic
-Resolved with IVF
DVT and GI prophylaxis. Protonix and Lovenox
Critical Care time 40 mins -- The patient is admitted for acute critical illness for the treatment of vital organ failure and/or prevention of further life-threatening conditions. Total care includes time spent in review of history, physical exam,
medications, hemodynamic/ventilator parameters, laboratory data, imaging and discussion with house staff, pharmacy, respiratory therapy, neuropathologist, and nursing.
Echo 11/2024: LV ejection fraction is 65-70%. No regional wall motion abnormalities are seen.
Normal right ventricular size and function. Moderately dilated left atrium. Moderately dilated right atrium. Mild aortic stenosis; peak/mean gradients 14/8 mmHg, calculated SHANNAN 1.7 cm2. Trace aortic regurgitation.
Moderate to severe tricuspid regurgitation. Estimated pulmonary artery pressure of 40-[address] Chest 11/2024: 1. MASSIVE HIATAL HERNIA containing the entire stomach and mid transverse colon.
2. Large amount of subpleural airspace consolidation in the left lower lobe adjacent to the hiatal hernia which is likely chronic compressive atelectasis and scarring.
3. Small to moderate-sized airspace consolidations in the superior segment of the right lower lobe and anterior segment of the right upper lobe which is most likely MULTIFOCAL PNEUMONIA given the location and morphology of the airspace
consolidations.
4. Moderate subpleural airspace consolidation in the right lower lobe (either compressive atelectasis or pneumonia).
5. Small bilateral pleural effusions.
6. Moderate to severe air distention of the esophagus proximal to the hiatal hernia.
7. Mild cardiomegaly.
8. Severely exaggerated upper thoracic kyphosis and multilevel discogenic degenerative disease throughout the cervical, thoracic, and lumbar spine.
9. 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
Subjective Dataa
Subjective Data
Date of Service:
Date of Service: November 28, 2024
Subjective:
Patient more awake, alert and interactive today.
Review of Systems
Genitourinary: Other (All 14 systems reviewed and negative except as stated above in the history of present illness.)
Objective Data
Data Reviewed
Vital Signs / I&O / Oxygen:
Vital Signs
Temp Pulse Resp BP Pulse Ox
96.4 F L 62 17 129/71 97
11/28/24 11:23 11/28/24 12:00 11/28/24 12:00 11/28/24 12:00 11/28/24 12:00
Intake and Output
11/27/24 11/28/24 11/29/24
06:59 06:59 06:59
Intake Total 740 / 820 1949 / 2029 480 / 480
Output Total 295 / 345 1565 / 1615 175 / 175
Balance 445 / 475 385 / 415 305 / 305
SaO2 97
Nasal Cannula flow liters per 2
minute
Physical Exam
General: Comfortable
HEENT: Normocephalic
Cardiovascular: S1-S2
Respiratory: Clear and Non-Labored Respirations
GI: Soft and Non Distended
Neurology: Awake and Alert
Skin: Warm
Labs/Micro/Reports
Lab Data
11/28/24 03:40
11/28/24 03:40
Laboratory Results
11/27/24
15:25
pH 7.30 L
pCO2 55 H
pO2 85
HCO3 27.1
O2 Delivery Level
Microbiology
11/26/24 19:42 Urine Urine Culture - Final
Streptococcus species
11/26/24 17:37 Blood/Venous Blood Culture - Preliminary
No Growth in 24 hours- Final report to follow
11/26/24 17:46 Blood/Venous Blood Culture - Preliminary
No Growth in 24 hours- Final report to follow
11/26/24 17:37 Nasal Swab Influenza Types A & B (G[facility]HAM) - Final
Negative for Influenza A & B, NAAT
Negative results must be combined with clinical observations
and patient history.
Nucleic Acid Amplification test (NAAT)performed on the
[employer] platform.
--- NOTE | 2024-11-28 13:47 | PTCARENOTE ---
returned to room from video swallow eval. Pt w/o complaint or change noted from previous assessment findings. Remains on O2 at 1l/min w/ POx 92-97% Louis removed and pure wick placed. Repositioned, hygiene, and comfort care provided.
[2024-11-28] MEDS: FLUSH (NSS) IV ×2 (13:55→14:05)
[2024-11-28] MEDS: ROCEPHIN 1000 MG IV (15:00)
--- NOTE | 2024-11-28 15:02 | PTOTSP ---
Video Swallow evaluation (VSE):
Patient presents with mild oral and mild pharyngeal stage of swallowing. No aspiration observed during today�s study, however observed varying degrees of penetration with thin liquids via cup. Etiology of swallowing is felt to be due to generalized
weakness and acute on chronic hypoxic/hypercapnic respiratory failure. Please see patient care note for full details of penetration/aspiration and swallowing physiology.
Recommend:
1. Initiate IDDSI Level 6 (soft and bite sized solids) and thin liquids via straw only
2. Medications as best tolerated
3. Strict aspiration and reflux precautions: upright as able for all PO intake, alternate solids and liquids, small bites/sips, slow rate, thorough oral care, remain upright for at least 60 minutes following PO intake given massive hiatal hernia.
4. Close supervision with meals s/p diet initiation
5. Modifiable risk factors for aspiration pneumonia including frequent/thorough oral care, pulmonary hygiene measures, and increasing physical mobility as medically feasible.
6. MESSAGE BROKER DEVELOPER to follow regarding VSE findings and recommendations, training in swallow precautions, and for trials of higher level solids.
[2024-11-28] MEDS: ZITHROMAX INFUSION 250 IV (16:40)
[2024-11-28 16:53] LABS: Venous Blood Gas B.E. 2.8 mmol/L (-4 to +4); Venous Blood Gas HCO3 28.9 mmol/L (22-27); Venous Blood Gas O2 Sat % 99.8 %; Venous Blood Gas pCO2 50 mmHg (35-48); Venous Blood Gas pH 7.37 (7.32-7.43); Venous Blood Gas pO2 149 mmHg (30-50)
--- NOTE | 2024-11-28 17:25 | PTCARENOTE ---
Pt transferred to Rm [id number] via WC following transfer report given to Rand BEAVER. Pt w/o change or new complaint prior to transfer. Pt's daughter assisted w/ transport of pt's personal belongings. Pt's met pt in new room. Dr Morales updated on
VBG results prior to transfer- order to change BiPap to prn received- Resp. Therapy aware.
--- NOTE | 2024-11-28 17:40 | TRANSFER ---
Pt transferred to 4W from ICU with family ay bedside. Oriented to room and plan of care. Call licea within reach.
[2024-11-28] MEDS: LOVENOX 40 MG SC (18:08)
[2024-11-28] MEDS: REQUIP 2 MG PO (20:30)
[2024-11-29] MEDS: D5LR 1000 IV (04:21)
[2024-11-29 07:00] VITALS: BP 168/94
--- NOTE | 2024-11-29 07:07 | W.PN.HOSP.TC ---
Addendum entered and electronically signed by Marilyn Cabezas MD, Resident 11/29/24 10:58:
# Possible UTI
-Urine cultures grew Streptococcus species
-UA was positive for leukocyte esterase with many bacteria seen
-Concurrent treatment with IV antibiotics for pneumonia
-No reported symptoms of dysuria by patient
Original Note:
Today's Communication/Plan
-
Continue IV antibiotics, continue warming measures, patient placed on telemetry, continue monitoring heart rate and blood pressure
Assessment / Plan
Assessment / Plan
Assessment:
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
past few weeks. Patient was found to be bradycardic in the ED and given a dose of atropine and started on an epinephrine drip. Patient was admitted to the ICU. Patient underwent head CT which did not show any changes. Chest X-Ray showed some
possible bilateral opacities showing possible pneumonia versus atelectasis. Patient was started on antibiotics for pneumonia. Patient underwent a chest CT scan which showed massive hiatal hernia along with multifocal pneumonia. General surgery was
consulted for hernia repair, and antibiotics continued for pneumonia with further breathing management. Surgery was not recommended at this time. Patient was downgraded to telemetry.
CXR (11/26/2024):
Large hiatal hernia/partially intrathoracic stomach, probably increased in size compared to previous radiograph of August 03, 2023.
Small left pleural effusion, which appears increased compared to previous radiograph. Parenchymal opacity within the left lower lung is most likely atelectasis, but underlying pneumonia difficult to exclude.
Patchy parenchymal opacity within the right lower lung is new from previous radiograph, with main differential considerations of pneumonia and/or atelectasis.
No evidence for pulmonary edema pattern.
CT Head w/o IV Contrast (11/26/2024):
No evidence of acute intracranial abnormality.
U/S Abd (11/26/2024):
Gallbladder appears within normal limits with no evidence for biliary ductal dilation. No focal abnormality of the liver.
Small right pleural effusion.
Minimal free fluid in the region of the hepatorenal fossa.
The pancreas and abdominal aorta are unable to be adequately visualized.
Mild to moderate renal parenchymal loss involving the right kidney with slightly irregular contour suggesting possible scarring.
Normal appearance of the left kidney.
Echocardiogram (11/27/2024):
LV ejection fraction is 65-70%. No regional wall motion abnormalities are seen.
Normal right ventricular size and function.
Moderately dilated left atrium. Moderately dilated right atrium.
Mild aortic stenosis; peak/mean gradients 14/8 mmHg, calculated SHANNAN 1.7 cm2.
Trace aortic regurgitation.
Moderate to severe tricuspid regurgitation. Estimated pulmonary artery pressure
of 40-[address] Chest W/o Iv Contrast (11/27/2024):
1. MASSIVE HIATAL HERNIA containing the entire stomach and mid transverse colon.
2. Large amount of subpleural airspace consolidation in the left lower lobe adjacent to the hiatal hernia which is likely chronic compressive atelectasis and scarring.
3. Small to moderate-sized airspace consolidations in the superior segment of the right lower lobe and anterior segment of the right upper lobe which is most likely MULTIFOCAL PNEUMONIA given the location and morphology of the airspace
consolidations.
4. Moderate subpleural airspace consolidation in the right lower lobe (either compressive atelectasis or pneumonia).
5. Small bilateral pleural effusions.
6. Moderate to severe air distention of the esophagus proximal to the hiatal hernia.
7. Mild cardiomegaly.
8. Severely exaggerated upper thoracic kyphosis and multilevel discogenic degenerative disease throughout the cervical, thoracic, and lumbar spine.
9. 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
Plan:
#Symptomatic bradycardia
- Seen on EKG as above
- admitted to ICU due to requirement of epinephrine gtt (to keep pulse >60, MAP >65)
- holding propranolol
- Echocardiogram showed moderate to severe tricuspid regurgitation with pulmonary artery pressure of 40-45 mmHg and left ejection fraction of 65-70%
- most likely the cause of somnolence and altered mental status
- Cortisol levels - Random cortisol 17.8
- cardiology consulted, input appreciated
- Following CT scan, bradycardia most likely due to massive hiatal hernia
- Surgery not recommended at this time
- Patient downgraded to telemetry. Blood pressure and bradycardia resolving.
- As per cardiology, will not be resuming propranolol. Holding nifedipine
- Possibly starting losartan 25 mg daily tomorrow
# Massive hiatal hernia seen on CT scan
- CT chest results as above
- Most likely causing patient's symptoms including bradycardia and predisposed patient to getting pneumonia
- Surgery team consulted, input appreciated
- Hernia repair not indicated at this time as per surgery team. They want pneumonia resolution first
#Hypoxia requiring supplemental oxygen
- Chest x-ray results as above
- Chest CT results as above
- neg flu, neg COVID
- Blood cultures show no growth
- Procalcitonin negative
- Continue IV ceftriaxone/azithromycin for pneumonia
- supportive measures with supplemental oxygen as needed
- Patient currently requiring 2 L of oxygen, will try weaning off to room air as possible
# Sepsis/Hypothermia secondary to pneumonia
- Blood cultures negative, urine cultures pending
- Patient on lactated Ringer's with dextrose for fluids
- inflammatory markers
- normal tsh, and free t4
- warming measures and abx treatment with Cefepime/Metronidazole
- ID Consulted, input appreciated
- Had some hypothermia today, continue monitoring temperatures and warming measures
- Continue IV antibiotics
#Altered Mental Status most likely due to persistent bradycardia
- CT scan findings as above (No acute findings seen)
- Patient has been off of the epinephrine now
- Mental status has improved
- Patient on ropinirole
# Pancytopenia
- Hematology consulted, input appreciated
- Patient has normocytic anemia which may be chronic, thrombocytopenia
- As per hematology notes, changes seem to be due to her current infection
- MMA, folate, iron studies, reticulocytes, heme stool ordered by hematology
#Transaminitis
- U/S negative for any acute findings
- Hepatitis panel negative
- No alcohol levels seen
- Probably secondary to his sepsis from pneumonia
- GI was consulted to help with further management, input appreciated
- GI signed off, as ultrasound/hepatitis panel/further workup was negative
- LFTs trending down
DVT Prophylaxis - Lovenox
Full Code
Anticipated Discharge: 24 - 48 hours
Subjective/Interval History
-
Date of Service: November 29, 2024
Patient seen with family at bedside. Reported feeling little bit better with some improvement in breathing. Was on 2 L of oxygen when seen. Temperatures were stable last night however had some more hypothermia this morning.
Objective Data
-
Labs:
Laboratory Results
11/29/24
06:53
WBC Pending
Hgb Pending
Hct Pending
Plt Count Pending
Sodium Pending
Potassium Pending
Chloride Pending
Carbon Dioxide Pending
BUN Pending
Creatinine Pending
Glucose Pending
Calcium Pending
Vital Signs:
Vital Signs
Temp Pulse Resp BP Pulse Ox
97.4 F 64 16 151/73 96
11/28/24 23:00 11/28/24 23:00 11/28/24 23:00 11/28/24 23:00 11/28/24 23:00
I&O
11/28/24 11/29/24 11/30/24
06:59 06:59 06:59
Intake Total 1949 1040 / 1040
Output Total 1565 / 1615 295 / 295
Balance 385 / 415 745 / 745
Review of Systems
-
History Source: Patient and Family
Constitutional: Reports Fatigue
EENT: Reports No Symptoms Reported
Respiratory: Denies Cough, Trouble Breathing or Wheezing
Cardiac: Denies Chest Pain, Palpitations or Syncope
Abdomen/GI: Denies Abdominal Pain, Nausea or Vomiting
Genitourinary: Reports No Symptoms
Musculoskeletal: Reports No Symptoms
Skin: Reports No Symptoms
Neuro: Reports No Symptoms
Endocrine: Reports No Symptoms
Hematologic / Lymphatic: Reports No Symptoms
Allergy / Immunology: Reports No Symptoms
Physical Exam
-
General: No Apparent Distress and Comfortable
HEENT: Normocephalic, Atraumatic and Oxygen (On 2 L)
Respiratory: Non Labored Respirations
Cardiac: Regular Rhythm and S1/S2
GI: Soft, Nontender and Nondistended
Musculoskeletal: No Clubbing, No Cyanosis and No Edema
Skin: Warm
Neuro: Awake and Alert
Psych: Calm
Data Reviewed
-
Labs: Labs Reviewed by me, Discussed with Physician, Discussed with Nurse, Discussed with Patient and Discussed with Family
[2024-11-29 07:10] LABS: Venous Blood Gas B.E. 4.4 mmol/L (-4 to +4); Venous Blood Gas HCO3 30.6 mmol/L (22-27); Venous Blood Gas pCO2 53 mmHg (35-48); Venous Blood Gas pH 7.37 (7.32-7.43); Venous Blood Gas pO2 174 mmHg (30-50)
[2024-11-29 07:49] LABS: Hematocrit 31.8 % (37.0-47.0); Hemoglobin 10.2 g/dL (12.0-16.0); Mean Corp Hgb Conc. 32.1 g/dL (33.0-37.0); Mean Corpuscular Volume 93.5 fL (81.0-99.0); Mean Platelet Volume 11.5 fL (7.4-10.4); Platelet Count 79 10^3/uL (130-400); Red Cell Dist. Width 15.6 % (11.5-14.5); White Blood Cell Count 3.9 10^3/uL (4.8-10.8)
--- NOTE | 2024-11-29 08:17 | W.PN.CD ---
Today's Communication / Plan
-
-Will likely not resume propranolol.
-Blood pressure recovering; patient was on nifedipine, losartan, and propranolol as outpatient--continue to hold for now.
-May be able to start low-dose losartan 25 mg daily tomorrow (was on 100 mg daily at home), if blood pressure remains stabilized/elevated.
Impression / Plan
-
Large hiatal hernia
-discussed with hospitalist: needs surgical evaluation
-from cardiac perspective, she is intermediate risk, and no additional testing recommended at this time
Bradycardia
-echo 11/27: EF 65-70%, mild , nl RV, moderate/severe TR, PASP 45
-in setting of hypothermia/sepsis, and beta leela therapy
-Will likely not resume propranolol.
Hypertension, but now with hypotension/sepsis
-beta leela held for bradycardia
-Blood pressure recovering; patient was on nifedipine, losartan, and propranolol as outpatient--continue to hold for now.
-May be able to start low-dose losartan 25 mg daily tomorrow (was on 100 mg daily at home), if blood pressure remains stabilized/elevated.
Sepsis: in setting of PNA
-Continue Abx per Hospitalist.
Valvular heart disease--mild , moderate to severe TR:
-Continue to monitor clinically.
Transaminitis, worsening, GI consulted
Chronic lower extremity lymphedema
Dyslipidemia, pravastatin on hold due to abnormal LFT
Physical Exam
Vital Signs/Labs
Vital Signs
Temp Pulse Resp BP Pulse Ox
97.4 F 64 16 151/73 96
11/28/24 23:00 11/28/24 23:00 11/28/24 23:00 11/28/24 23:00 11/28/24 23:00
11/28/24 11/29/24 11/30/24
06:59 06:59 06:59
Actual Weight 65.6 kg
11/29/24 06:53
TSH 3.32 uIU/ml (0.47-4.68) 11/26/24 17:37
Free T4 1.51 ng/dl (0.78-2.19) 11/26/24 20:18
LAB Results
11/26/24
17:37
Troponin I < 0.012
Physical Exam
Constitutional: No acute distress and Comfortable
Cardiovascular: Rhythm & rate is regular, Systolic murmur present (/) and S1S2 is normal
Respiratory: Respiratory effort normal and Lungs clear to auscul.
GI: Soft
Neuro/Psych: AO x 3
Other: Skin (Warm, dry)
Data Reviewed
-
Date of Service: November 29, 2024
EKG: Tracing Personally Visualized and interpreted (Telemetry: Sinus rhythm)
Echo: Report Reviewed by me (EF 65-70%, mild aortic stenosis, moderate to severe TR.)
Medical Tests (PFT, Pathology etc): Discussed with Patient
Labs: Labs Reviewed by me
[2024-11-29 08:19] LABS: Blood Urea Nitrogen 22 mg/dl (7-17); Carbon Dioxide 30 mmol/L (22-30); Chloride 104 mmol/L (98-107); Estimated Creatinine Clearance 59 ml/min; Glucose 104 mg/dl (70-99); Potassium 4.4 mmol/L (3.5-5.1); Sodium 139 mmol/L (135-145); eGFR > 60.00
--- NOTE | 2024-11-29 08:31 | CON.ONC ---
Impression
Impression
a/w suspected sepsis, bradycardia
acute respiratory failure
PNA
large hiatal hernia
HTN
bradycardia
valvular heart disease
transaminitis
chronic lower extremity edema
normocytic anemia
leukopenia/lymphopenia
thrombocytopenia
Plan
Plan
Hematology consulted for evaluation of pancytopenia. Normocytic anemia seems chronic with baseline~10-11g/dL since 2022. Elevated ESR/CRP suggests a component of inflammation contributing to chronic anemia. UA with bld and RBC. Home medications
reviewed and nothing suspect to contribute to cytopenias. Infection/sepsis likely contributing to acute cytopenias. Acute hepatitis panel is non-reactive. B12 normal, however, <400 so will check MMA. Check folate, iron studies, retic, heme stool.
Patient History
History of Present Illness
79yo F presented to ER 11/26/2024 with progressive decreased oral intake, weakness and lethargy. Her symptoms started approximately 8 weeks ago. Her initial ER evaluation was notable for heart rate 30BPM, temp 91.8F, and developed hypotension in
the ER treated with atropine and epinephrine. Chest x-ray shows patchy bilateral opacities and a large hiatal hernia/partially intrathoracic stomach, likely increased in size compared to previous radiograph of July 2023.She was admitted with
suspected sepsis and started on IV abx. Her Bcx are negative to date. Her swallow study showed no aspiration.
Hematology is consulted for evaluation of leukopenia and thrombocytopenia. Admission labs notable for WBC 4.7, ANC 3.7, ALC 0.6, Hgb 11.5, MCV 93.5, platelets 74,000. Normal renal function. Tbili 0.3, AST 331, ALT 247, Alk phos 247. Her WBC and
platelets have remained stable with WBC 3.9, ALC 0.5, Hgb 10.2, platelet count 79,000 today.
Clinically, denies fever, chills, chest pain, sob at rest, n/v/d/c or abdominal pain. She has a persistent cough for 2 months. She uses compression stockings for LE edema.
Past-Medical/Surgical History
PMH HTN, HLD, GERD, arthritis, C2 fracture, restless leg syndrome, incarcerated left inguinal hernia 09/03
PSH Hernia repair, bowel resection 2022, D&E, fracture right ankle repair
Social non-smoker, denies etoh or recreational drugs
Family non-contributory
Patient Medication
�Medication �Instructions �Recorded �Confirmed �Last Taken �Type
docusate sodium 100 mg capsule 100 mg PO DAILYPRN PRN cosntipation 08/03/23 11/26/24 11/23/24 History
(Colace)
pravastatin 20 mg tablet 20 mg PO HS High Cholesterol 08/03/23 11/26/24 11/25/24 History
propranolol 10 mg tablet 10 mg PO BID #0 tabs 08/12/23 11/26/24 11/26/24 Rx
dextromethorphan-guaifenesin 30 1 tab PO [id number] PRN congestion 11/26/24 11/26/24 11/25/24 History
mg-600 mg tablet extended
czziace15 hr (Mucinex DM)
losartan 100 mg tablet 100 mg PO DAILY Blood Pressure 11/26/24 11/26/24 11/26/24 History
magnesium oxide 500 mg PO DAILY Electrolyte 11/26/24 11/26/24 11/26/24 History
Repletion
nifedipine 30 mg tablet,extended 30 mg PO HS Blood Pressure 11/26/24 11/26/24 11/25/24 History
release
ropinirole 2 mg tablet 2 mg PO HS Neurological Condition 11/26/24 11/26/24 11/25/24 History
Active Medications
Generic Name Dose Route Start Last Admin
Trade Name Freq PRN Reason Stop Dose Admin
Acetaminophen 650 mg 11/26/24 22:01
Acetaminophen 325 Mg Tablet PO 12/24/24 22:00
Q6HPRN PRN
mild pain/ fever>100.5F
Ceftriaxone Sodium 1,000 mg 11/27/24 14:00 11/28/24 15:00
Ceftriaxone 1000 Mg / 10 Ml Vial IV 12/02/24 14:01 1,000 mg
Q24H ERWIN Administration
Enoxaparin Sodium 40 mg 11/27/24 18:00 11/28/24 18:08
Enoxaparin Sodium 40 Mg/0.4 Ml Syringe SC 12/25/24 17:59 40 mg
QPM ERWIN Administration
Azithromycin 500 mg in 250 mls @ 250 mls/hr 11/27/24 16:00 11/28/24 16:40
Zithromax Infusion IV 11/29/24 16:59 250 mls
Q24H ERWIN Administration
Ondansetron HCl 4 mg 11/26/24 22:01
Ondansetron 4 Mg/2 Ml Vial IV 12/24/24 22:00
Q6HPRN PRN
NAUSEA/VOMITING
Ropinirole HCl 2 mg 11/28/24 20:00 11/28/24 20:30
Ropinirole 2 Mg Tablet PO 12/26/24 19:59 2 mg
DAILY@2000 ERWIN Administration
Sodium Chloride 0 flush 11/26/24 22:00
Sodium Chloride 0.9% (Flush) Syringe IV 12/24/24 21:59
PER PROTOCOL ERWIN
Sodium Chloride 0 flush 11/27/24 13:55 11/28/24 14:05
0.9% Nacl Flush If Lactated Ringers Ivf Ordered IV 12/25/24 13:54 Not Given
BID@1355,1405 ERWIN
Sterile Water 10 ml 11/27/24 00:00 11/28/24 23:05
Sterile Water For Injection 10 Ml Vial IV 12/25/24 00:00 Not Given
Q12H ERWIN
Review of Systems
-
ROS is notable for HPI, otherwise negative
Physical Exam
-
General: No Apparent Distress and Other (kyphosis)
HEENT: Moist Mucous Membranes; Negative Jaundice
Cardiology: Normal Sinus Rhythm
Pulmonary: Clear
GI: Soft
Extremities: Pulses Present and Edema (b/l LE trace)
Skin: Warm
Psych: Calm
Labs
Lab Results
WBC 3.9 10^3/uL (4.8-10.8) L 11/29/24 06:53
RBC 3.40 10^6/uL (4.20-5.40) L 11/29/24 06:53
Hgb 10.2 g/dL (12.0-16.0) L 11/29/24 06:53
Hct 31.8 % (37.0-47.0) L 11/29/24 06:53
MCV 93.5 fL (81.0-99.0) 11/29/24 06:53
MCH 30.0 pg (27.0-31.0) 11/29/24 06:53
MCHC 32.1 g/dL (33.0-37.0) L 11/29/24 06:53
RDW 15.6 % (11.5-14.5) H 11/29/24 06:53
Plt Count 79 10^3/uL (130-400) L D 11/29/24 06:53
MPV 11.5 fL (7.4-10.4) H 11/29/24 06:53
Abs Immat Gran (auto) 0.0 10^3/uL (0-0.05) 11/28/24 03:40
Absolute Neuts (auto) 2.8 10^3/uL (1.4-6.5) 11/28/24 03:40
Absolute Lymphs (auto) 0.5 10^3/uL (1.2-3.4) L 11/28/24 03:40
Absolute Monos (auto) 0.3 10^3/uL (0.1-0.6) 11/28/24 03:40
Absolute Eos (auto) 0.0 10^3/uL (0-0.7) 11/28/24 03:40
Absolute Basos (auto) 0.0 10^3/uL (0-0.2) 11/28/24 03:40
Immature Gran % 0.5 % (0-0.5) 11/28/24 03:40
Neutrophils % 76.5 % (42.2-75.2) H 11/28/24 03:40
Lymphocytes % 12.7 % (20.5-51.1) L 11/28/24 03:40
Monocytes % 9.2 % (1.7-9.3) 11/28/24 03:40
Eosinophils % 0.8 % (0-6) 11/28/24 03:40
Basophils % 0.3 % (0-2) 11/28/24 03:40
Creatinine 0.7 mg/dL (0.6-1.0) 11/29/24 06:53
Vital Signs
Vital Signs
Temp Pulse Resp BP Pulse Ox
97.4 F 64 16 151/73 96
11/28/24 23:00 11/28/24 23:00 11/28/24 23:00 11/28/24 23:00 11/28/24 23:00
--- NOTE | 2024-11-29 08:54 | CM ---
Addendum entered by Almita Recinos 11/29/24 11:06:
Patient seen resting bedside, CM met with patients . Per - does not want patient to go to SNF and would like patient to get home services. reports at home patient has multiple walkers, commodes, walk in tub, stair glide, does
not wear home O2.
Original Note:
CM reviewed chart, PT recommendation of SNF- referrals placed to [facility]. Patient will need insurance auth once accepting facility/medically stable. CM will continue to follow for all discharge planning needs.
Plan; SNF once medically stable, referrals placed, auth will be required.
--- NOTE | 2024-11-29 09:08 | W.PN.PUL3 ---
Today's Communication / Plan
-
Check ABG in a.m.
Continue aspiration precautions
Per discussion with family, strong suspicion for sleep disordered breathing
This combined with kyphosis, hiatal hernia, likely cause of chronic CO2 retention
Incentive spirometry, out of bed to chair
May require follow-up CT imaging given right upper lobe nodule in 3 to 6 months
Pulmonary follow-up is recommended
Assessment
-
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
and lethargy over several weeks. Patient reportedly has been declining over the last few weeks with increased weakness, lethargy and easily falling asleep. Minimal symptoms of memory loss otherwise patient fairly able to communicate appropriately.
Also reported history of cough with frequent expectoration over the last few weeks. Patient goes through multiple tissues every day per patient's . Decreased p.o. intake reported. In the emergency room patient noted to be hypotensive,
hypoxic as well as bradycardic. She was given IV fluids, started on antibiotics and also received atropine followed by epinephrine infusion. Patient was admitted to the ICU in view of bradycardia and director clinical pharmacology consultation was requested for
further recommendations.
ICU course reviewed. Patient responded to BiPAP
Family confirmed that mental status improved since transfer out of ICU
#1. Acute hypoxic respiratory failure with Hypotension, hypothermia with Aspiration pneumonia
Appears to be improved objectively and subjectively
Hypothermia persists reviewed CT imaging, patchy infiltrate at base, elevated left hemidiaphragm with hiatal hernia
Continue with aspiration precautions, head of bed elevated
#2. Symptomatic bradycardia
This has resolved
TSH normal, Cortisol normal
Hypertension noted
Cardiology following
Hypothermia intermittent, persist
#3. Metabolic encephalopathy, complicated by hypercapnia
Improved
CT head, TSH, B12 unremarkable
Avoiding any sedating medication
Family states patient has been increasing fatigue with excessive daytime sleepiness at home over the past 6 to 12 months
Will repeat ABG in a.m.
Strong suspicion for sleep disordered breathing, combined with mild kyphosis, hiatal hernia
#4. Acute on chronic hypercapnic respiratory failure
Suspect chronic restrictive lung disease due to large hiatal hernia with stomach and colon sitting in thoracic cavity. Exacerbated by bilateral aspiration pneumonia
Responded well to BIPAP with improved CO2 and mental status. VBG 7.37/51 now, reflective of chronic compensated hypercapnia
Monitor off BIPAP
Repeat ABG in a.m.
Incentive spirometry. Based on bedside evaluation, patient profoundly deconditioned, could not do incentive spirometry adequately
#5. Very large intra thoracic hiatal hernia
Speech therapy eval
Video swallow eval
Gen surgery service on case
NG could not be placed despite multiple attempts
#6. Mild hyperkalemia. Also elevated BUN/Cr ratio. Hypovolemic
Resolved with IVF
#7. right upper lobe nodule
Although this may be consistent with aspiration event/pneumonitis, posterior isolated location somewhat peculiar
May consider follow-up CT imaging in 3 to 6 months
DVT and GI prophylaxis. Protonix and Lovenox
Reviewed with and [id number] at bedside.
Patient may benefit from pulmonary follow-up as outpatient given suspicion for sleep disordered breathing
Echo 11/2024: LV ejection fraction is 65-70%. No regional wall motion abnormalities are seen.
Normal right ventricular size and function. Moderately dilated left atrium. Moderately dilated right atrium. Mild aortic stenosis; peak/mean gradients 14/8 mmHg, calculated SHANNAN 1.7 cm2. Trace aortic regurgitation.
Moderate to severe tricuspid regurgitation. Estimated pulmonary artery pressure of 40-[address] Chest 11/2024: 1. MASSIVE HIATAL HERNIA containing the entire stomach and mid transverse colon.
2. Large amount of subpleural airspace consolidation in the left lower lobe adjacent to the hiatal hernia which is likely chronic compressive atelectasis and scarring.
3. Small to moderate-sized airspace consolidations in the superior segment of the right lower lobe and anterior segment of the right upper lobe which is most likely MULTIFOCAL PNEUMONIA given the location and morphology of the airspace
consolidations.
4. Moderate subpleural airspace consolidation in the right lower lobe (either compressive atelectasis or pneumonia).
5. Small bilateral pleural effusions.
6. Moderate to severe air distention of the esophagus proximal to the hiatal hernia.
7. Mild cardiomegaly.
8. Severely exaggerated upper thoracic kyphosis and multilevel discogenic degenerative disease throughout the cervical, thoracic, and lumbar spine.
9. 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
Subjective Data
-
Date of Service:
Date of Service: November 29, 2024
Subjective:
Patient evaluated while receiving oral care by family. She denies shortness of breath, chest pain. She has a mild cough. Denies nausea, abdominal pain. Appears to be deconditioned. and [id number] at bedside
Objective Data
Data Reviewed
Vital Signs / I&O / Oxygen:
Vital Signs
Temp Pulse Resp BP Pulse Ox
97.4 F 64 16 151/73 96
11/28/24 23:00 11/28/24 23:00 11/28/24 23:00 11/28/24 23:00 11/28/24 23:00
Intake and Output
11/28/24 11/29/24 11/30/24
06:59 06:59 06:59
Intake Total 1949 1040 / 1040
Output Total 1565 / 1615 295 / 295
Balance 385 / 415 745 / 745
SaO2 96
Nasal Cannula flow liters per 2
minute
Physical Exam
General: Comfortable and Other (Large neck, kyphoscoliosis)
HEENT: Normocephalic, Anicteric and Moist Mucous Membranes
Cardiovascular: S1-S2, Regular Rhythm, Murmur (2/6 systolic murmur), Rub (n), Peripheral Edema (Trace) and Other (Mild chronic venous stasis changes)
Respiratory: Wheeze (n), Crackles (n), Rhonchi (n), Non-Labored Respirations, Stridor (n) and Other (Decreased at base)
GI: Soft, Non Distended and Non Tender
Neurology: Awake, Alert, Oriented and No Motor Deficits (Generally weak, moves all extremities, can sit forward without assistance)
Skin: Cyanosis (n), Jaundice (n) and Rash (Mild lower extremity erythema, no warmth)
Labs/Micro/Reports
Lab Data
11/29/24 06:53
11/29/24 06:53
Microbiology
11/26/24 17:46 Blood/Venous Blood Culture - Preliminary
No Growth in 48 hours- Final report to follow
11/26/24 17:37 Blood/Venous Blood Culture - Preliminary
No Growth in 48 hours- Final report to follow
11/26/24 19:42 Urine Urine Culture - Final
Streptococcus species
11/26/24 17:37 Nasal Swab Influenza Types A & B (GRAHAM) - Final
Negative for Influenza A & B, NAAT
Negative results must be combined with clinical observations
and patient history.
Nucleic Acid Amplification test (NAAT)performed on the
[employer] platform.
--- NOTE | 2024-11-29 10:04 | PN.CDI ---
CDI
- -
CDI:
Physician Documentation Request
Admit Date: 11/26/24 20:47
Dear Doctor Jocelynn,
Patient admitted for management of bradycardia, sepsis and acute hypoxemic respiratory failure. She became hypotensive in ED, was given a dose of atropine and started on epinephrine drip.
Please clarify which of the following most accurately describes the status of the patient's infection:
Sepsis
Severe Sepsis
- Sepsis with associated acute organ dysfunction, such as renal or respiratory failure
Septic Shock
- Severe sepsis associated with circulatory failure, evidenced by hypotension and hypoperfusion
Other
Use of terms such as suspected, likely, concern for, or probable (associated with a specific diagnosis that is being evaluated, monitored, or treated as if it exists) are acceptable and can be coded in the inpatient setting, when documented at the
time of discharge.
Thank you,
Cassandra Vazquez RN, BSN
CDI Specialist
tiger text
Please use your independent medical judgment in providing your response.
--- NOTE | 2024-11-29 10:15 | W.PN.UPDATE ---
Addendum entered and electronically signed by Rigoberto Singletary MD 11/29/24 15:14:
Asymptomatic bacteruria
Shock liver
Septic shock, POA
Original Note:
Update Note
Progress Note Update
I saw and evaluated the patient. I reviewed the resident�s note and agree with findings and plan as documented in the resident�s note.
No new complaints. Denies CP/SOB.
Gen: NAD, Awake and alert, NCAT
Eyes: EOMI, no scleral icterus
CV: continues to remain RRR, +S1/S2, no m/r/g.
Resp: remains CTAB anteriorly, no rales, wheezes, or rhonchi.
Abd: continues to remain +BS, soft, NT, ND
Skin: No rashes.
Neuro: CN2-12 intact
Psych: normal mood and affect
11/26/24 17:46 Blood/Venous Blood Culture - Preliminary
No Growth in 48 hours- Final report to follow
11/26/24 17:37 Blood/Venous Blood Culture - Preliminary
No Growth in 48 hours- Final report to follow
11/26/24 19:42 Urine Urine Culture - Final
Streptococcus species
11/26/24 17:37 Nasal Swab Influenza Types A & B (GRAHAM) - Final
Negative for Influenza A & B, NAAT
Negative results must be combined with clinical observations
and patient history.
Nucleic Acid Amplification test (NAAT)performed on the
[employer] platform.
CXR: Large hiatal hernia/partially intrathoracic stomach, probably increased in size compared to previous radiograph of August 03, 2023. Small left pleural effusion, which appears increased compared to previous radiograph. Parenchymal opacity
within the left lower lung is most likely atelectasis, but underlying pneumonia difficult to exclude. Patchy parenchymal opacity within the right lower lung is new from previous radiograph, with main differential considerations of pneumonia and/or
atelectasis. No evidence for pulmonary edema pattern.
CT brain: No evidence of acute intracranial abnormality.
Abd U/S: Gallbladder appears within normal limits with no evidence for biliary ductal dilation. No focal abnormality of the liver. Small right pleural effusion. Minimal free fluid in the region of the hepatorenal fossa. The pancreas and abdominal
aorta are unable to be adequately visualized. Mild to moderate renal parenchymal loss involving the right kidney with slightly irregular contour suggesting possible scarring. Normal appearance of the left kidney.
Echo: LV ejection fraction is 65-70%. No regional wall motion abnormalities are seen.
Normal right ventricular size and function.
Moderately dilated left atrium. Moderately dilated right atrium.
Mild aortic stenosis; peak/mean gradients 14/8 mmHg, calculated SHANNAN 1.7 cm2.
Trace aortic regurgitation.
Moderate to severe tricuspid regurgitation. Estimated pulmonary artery pressure
of 40-[address] chest:
1. MASSIVE HIATAL HERNIA containing the entire stomach and mid transverse colon.
2. Large amount of subpleural airspace consolidation in the left lower lobe adjacent to the hiatal hernia which is likely chronic compressive atelectasis and scarring.
3. Small to moderate-sized airspace consolidations in the superior segment of the right lower lobe and anterior segment of the right upper lobe which is most likely MULTIFOCAL PNEUMONIA given the location and morphology of the airspace
consolidations.
4. Moderate subpleural airspace consolidation in the right lower lobe (either compressive atelectasis or pneumonia).
5. Small bilateral pleural effusions.
6. Moderate to severe air distention of the esophagus proximal to the hiatal hernia.
7. Mild cardiomegaly.
8. Severely exaggerated upper thoracic kyphosis and multilevel discogenic degenerative disease throughout the cervical, thoracic, and lumbar spine.
9. 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
Massive hiatal hernia:
-CT chest: MASSIVE HIATAL HERNIA containing the entire stomach and mid transverse colon.
-surgery following. Case discussed with Dr. Caputo. I favor surgical intervention sooner rather than later.
-NGT attempted x 3 but failed
Symptomatic bradycardia:
-Hypotension and bradycardia s/p atropine
-ECG (read by me): SB @ 50, nl axis, 1st deg AVB with CT 204ms, no acute ST/TW changes
-was on epi gtt, now off
-holding home propranolol
-Fasting cortisol, TSH, free T4 normal
-cards following
-echo above
-HR has overall improved but has been labile
Sepsis, POA, due to R-sided multifocal PNA:
-presented with hypothermia/bradycardia/leukopenia/hypoxia/acute metabolic encephalopathy
-acute hypoxemic respiratory failure, was on BIPAP
-tom Rocephin/Azithro
-COVID/Flu NEG
-BCxs NGTD
-warming measures PRN
Transaminitis:
-likely due to possible sepsis/hypoperfusion/passive congestion from TR
-Acute viral hepatitis panel negative
-transaminases improved
-GI has signed off
Other problems:
Essential HTN: resume Nifedipine
Pancytopenia: likely due to bone marrow suppression due to sepsis. Heme following.
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
RLS
Pt's updated at bedside.
FULL/Lovenox
Total time spent on today's encounter was 51 minutes which included time spent in counseling the patient/family regarding diagnosis and treatment plan as listed above, goals of care, and symptom management. Case was discussed with nursing staff,
specialists, and care coordinators/case management. All labs and imaging personally reviewed by me. Remainder the time spent in detailed review of previous records, lab data, imaging, and other medical provider documentation.
--- NOTE | 2024-11-29 10:17 | PN.CDI ---
CDI
- -
CDI:
Physician Documentation Request
Admit Date: 11/26/24 20:47
Dear Doctor Jocelynn,
Patient came to ED and was found to be hypotensive, bradycardiac and hypothermic, she was temporarily placed on pressors. LEFT's elevated.
GI consult states 'Most likely more related to shock/low flow given documented hypotension'
Hospitalist note 'transaminitis- likely due to sepsis/hypoperfusion/passive congestion from TR'
Could you please clarify the diagnosis associated with elevated LFTs
Shock liver
Transaminitis only
Other
Use of terms such as suspected, likely, concern for, or probable (associated with a specific diagnosis that is being evaluated, monitored, or treated as if it exists) are acceptable and can be coded in the inpatient setting, when documented at the
time of discharge.
Thank you,
Cassandra Vazquez RN, BSN
CDI Specialist
tiger text
Please use your independent medical judgment in providing your response.
--- NOTE | 2024-11-29 10:24 | PN.CDI ---
CDI
- -
CDI:
Physician Documentation Request
Admit Date: 11/26/24 20:47
Dear Doctor Jocelynn,
Patient's Urine culture positive for streptococcus species.
Laboratory Tests
11/26/24
19:42
Urine Color Yellow
Urine Clarity Clear
Ur Occult Blood Reflex 4+ A
Urine Nitrite (Reflex) Negative
Leukocyte Esterase Rfl 3+ A
Urine WBC (Reflex) 60-70 A
Urine Bacteria (Reflex) Many A
Could you please provide a diagnosis that supports the above lab abnormalities and additional evaluation, monitoring and/or treatment rendered:
UTI
Asymptomatic bacteruria
Other
Use of terms such as suspected, likely, concern for, or probable (associated with a specific diagnosis that is being evaluated, monitored, or treated as if it exists) are acceptable and can be coded in the inpatient setting, when documented at the
time of discharge.
Thank you,
Cassandra Vazquez RN, BSN
CDI Specialist
tiger text
Please use your independent medical judgment in providing your response.
[2024-11-29 10:46] LABS: Iron 63 ug/dl (37-170)
[2024-11-29 10:55] LABS: Percent Saturation 27 % (20-50); Total Iron Binding Capacity 229 ug/dl (265-497)
[2024-11-29 11:00] VITALS: BP 140/70
[2024-11-29 11:03] LABS: Reticulocyte Count 1.3 % (0.4-2.8)
--- NOTE | 2024-11-29 11:13 | W.PN.GS2 ---
Addendum entered and electronically signed by Almas Caputo MD 11/29/24 11:51:
Patient seen and examined in follow-up with surgical ERP BUSINESS ANALYST. Daughter at bedside as well as patient's .
Patient somewhat somnolent but responsive.
Oriented to being hospitalized and to self.
Denies abdominal pain, denies significant nausea but continues with poor appetite. Ate some breakfast
States had a poor night and family members state patient appears worse today than yesterday when she was having a good day.
AFVSS
NAD AAO
ABD: Soft, nondistended, nontender
Bear hugger warmer in place
Assessment/plan: 79-year-old female with progressive large type IV paraesophageal hernia containing entire stomach and portions of transverse colon but without radiographic evidence of obstruction, strangulation. Patient admitted with failure to
thrive, progressive lethargy, aspiration pneumonia and hypothermia.
Detailed discussions with patient's family members reviewing her recent medical history which has been one of slow but progressive decline over the last 3 to 6 months and particularly over the last few weeks with very little oral intake and
ambulation.
While the large hiatal hernia is likely contributing to some of the patient's difficulties with adequate oral intake and possibly correlating with aspiration, given her progressive medical decline and frailty as well as radiographic imaging negative
for any acute obstructive component or compromise, advised the patient's family that there is not any strong indications to pursue immediate surgical correction. In addition this would likely be of high medical risk for postoperative failure to
thrive and medical complication as well as 30 day mortality.
After discussions with the patient's family they would like to continue to try to medically optimize if able prior to considering surgical correction of her hiatal hernia.
If there was continued medical decline then they would likely treat more palliatively and avoid surgery.
If patient's overall functional status and nutritional status improves then future consideration to repair would be given.
Diet as per speech therapy but in general would recommend soft foods, small portion sizes, taking care to chew food completely and allowing time to pass.
Elevate head of bed
Avoid eating within few hours of laying flat or sleeping.
Recommend PPI for gastroprotective effect given large type IV paraesophageal hernia
Original Note:
Today's Communication / Plan
-
Diet as per ROBOTICS ENGINEER
Assessment / Plan
-
79F with recent primary repair of inguinal hernia in 2022 (not yet followed up for definitive repair) large type IV PEH involving stomach and transverse colon, several weeks of lethargy and likely aspiration PNA. PEH increased in size since 2022
Hypothermic, otherwise VSS
Satting well on 2L NC
ID following for PNA
--ROBOTICS ENGINEER following, continue soft diet as tolerated
--Start PPI daily
--No plans for emergent surgery at this time as there is no evidence of GOO or bowel threat/compromise. Ideally, would be recovered from this current event prior to undergoing surgical intervention
Subjective Data
-
Date of Service: November 29, 2024
Patient seen and examined with family at bedside. Less energy and more drowsy today per her family. She awakens easily and denies pain. Poor appetite but tolerated soft diet without abdominal/chest pain.
Objective Data
-
Intake and Output
11/28/24 11/29/24 11/30/24
06:59 06:59 06:59
Intake Total 1949 1040 / 1040
Output Total 1564 295 / 295
Balance 385 / 415 745 / 745
Intake:
Oral fluids 30 / 30 240 / 240
IV fluids (Total) 1919 800 / 800
D5lr 1,000 ml @ 80 mls/hr IV . 1919 800 / 800
[id number] ERWIN Rx#:[id number]
Output:
Urine, Louis 1564 295 / 295
Other:
Number of approximated LARGE 1
amounts of urine
How many times incontinent 1
MODERATE amount urine
How many times incontinent 2
SATURATED amount urine
Vital Signs
Temp Pulse Resp BP Pulse Ox
96.3 F L 70 18 168/94 96
11/29/24 10:25 11/29/24 09:36 11/29/24 07:00 11/29/24 07:00 11/29/24 07:00
Lab Results
11/29/24 06:53
11/29/24 06:53
Calcium 9.0 mg/dl (8.4-10.2) 11/29/24 06:53
Total Bilirubin 0.4 mg/dl (0.2-1.3) 11/28/24 03:40
AST 150 U/L (14-36) H 11/28/24 03:40
ALT 160 U/L (0-35) H 11/28/24 03:40
Alkaline Phosphatase 208 U/L (38-126) H 11/28/24 03:40
Total Protein 5.9 g/dl (6.3-8.2) L 11/28/24 03:40
Albumin 3.2 g/dl (3.5-5.0) L 11/28/24 03:40
Physical Exam
-
NAD AAOx3, sleepy but awakens easily
ABS: soft, ND, NT
--- NOTE | 2024-11-29 12:06 | W.CON.PAL ---
Consultation
-
Date/Time Consultation Requested: 11/29
Date/Time Consultation Performed: 11/29
Requesting Provider: [facility]
Performing Provider: Tita Beal
Reason for Consult: Goals of Care Discussion
Primary Diagnosis: large hiatal hernia, aspiration PNA
Reason for Admission
Illness Course/HPI
79 year old F with PMH of ischemic bowel 2/2 incarcerated hernia s/p surgery 2022, mod/severe TR admitted with progressive weakness and lethargy. Upon admission was found to be bradycardic to the 30s, hypothermic. Given atropine and epi and sent to
ICU. Found to have b/l aspiration PNA, UTI and started on ABX. CT with massive hiatal hernia which is likely cause of PNA, bradycardia. Seen by surgery who feel surgery high risk for complications but can consider on outpatient basis after recovery
from PNA/acute hospitalization. Pulm following who also feel patient has restrictive lung disease, hiatal hernia worsening c02 retention.
Consult for GOC
Seen at bedside this PM with spouse and daughter present. Explained role of PCS. Family wanting to see if she can improve back to her baseline then consider surgery. Discussed hernia being large part of her symptoms/issues which they understand.
State she was awake earlier but now sleepy, temp is low again so back on heating blanket, lethargic. Discussed overall concern for big picture given her age, discussed option for hospice. Spouse became very emotional, hysterical crying at her
bedside. Explained can see how she does over coming days and will revisit to see how she is tomorrow and no decisions need to be made today.
Updated team,
Objective Data
-
Objective Data:
Vital Signs
Temp Pulse Resp BP Pulse Ox
96.3 F L 76 18 140/70 93
11/29/24 10:25 11/29/24 11:00 11/29/24 11:00 11/29/24 11:00 11/29/24 11:00
Laboratory Results
11/29/24 06:53
11/29/24 06:53
Hemoglobin A1c 5.6 % (4.0-5.6) 11/27/24 04:04
Total Protein 5.9 g/dl (6.3-8.2) L 11/28/24 03:40
Albumin 3.2 g/dl (3.5-5.0) L 11/28/24 03:40
TSH 3.32 uIU/ml (0.47-4.68) 11/26/24 17:37
Free T4 1.51 ng/dl (0.78-2.19) 11/26/24 20:18
Urine Color Yellow 11/26/24 19:42
Urine Clarity Clear (Clear) 11/26/24 19:42
Urine pH 5.0 (5.0-9.0) 11/26/24 19:42
Ur Specific [place] 1.020 (<1.030) 11/26/24 19:42
Urine Ketones Negative (Negative) 11/26/24 19:42
Urine Bilirubin Negative (Negative) 11/26/24 19:42
Palliative Performance Scale
Palliative Performance Scale:
PPS Level Ambulation Activity & Evidence of Disease Self Care Intake Conscious Level
100% Full Normal Activity & Work; Full Intake Full
No Evidence of Disease
90% Full Normal Activity & Work; Full Normal Full
Some Evidence of Disease
80% Full Normal Activity with Effort Full Normal or Full
Some Evidence of Disease Reduced
70% Reduced Unable Normal Job/Work Full Normal or Full
Significant Disease Reduced
60% Reduced Unable Hobby/Housework Occasional Normal or Full or Confusion
Significant Disease Assistance Reduced
50% Mainly Sit/Lie Unable to do Any Work Considerable Normal or Full or Confusion
Extensive Disease Assistance Req'd Reduced
40% Mainly in Bed Unable to do Most Activity Mainly Assistance Normal or Full or Drowsy;
Extensive Disease Reduced +/- Confusion
30% Totally Bed Unable to do Any Activity Total Care Normal or Full or Drowsy;
Bound Extensive Disease Reduced +/- Confusion
20% Totally Bed Bound Unable to do Any Activity Total Care Minimal to Full or Drowsy;
Extensive Disease Sips +/- Confusion
10% Totally Bed Bound Unable to do Any Activity Total Care Mouth Care Drowsy or Coma;
Extensive Disease Only +/- Confusion
0%
PPS Score Level:
Palliative Performance Score Response
Palliative Performance Score Response: 30%
Physical Exam
-
General: Appears Chronically Ill
HEENT: Normocephalic
Respiratory: Clear to Auscultation
Cardiac: Regular Rhythm and Murmur
GI: Soft
Skin: Warm
Neuro: Other (lethargic)
Assessment / Plan
-
Assessment/Plan:
79 year old F with large hiatal hernia, b/l asp PNA, UTI
- supportive care with ABX
- will follow up tomorrow
Care Reviewed
Data Reviewed
Radiology procedure: Image Reviewed
Medical Tests: I reviewed
Reviewed with: Patient, Family and Physician
[2024-11-29] MEDS: PROCARDIA XL (EXTENDED RELEASE) 30 MG PO (13:41)
[2024-11-29] MEDS: PROTONIX 40 MG PO (13:41)
[2024-11-29] MEDS: STERILE WATER FOR INJECTION 10 ML IV (13:42)
[2024-11-29] MEDS: ROCEPHIN 1000 MG IV (13:42)
[2024-11-29] MEDS: FLUSH (NSS) 2 FLUSH IV (13:44)
[2024-11-29] MEDS: FLUSH (NSS) IV (15:11)
[2024-11-29 15:56] VITALS: BP 124/83
[2024-11-29] MEDS: ZITHROMAX INFUSION 250 IV (16:38)
[2024-11-29] MEDS: LOVENOX 40 MG SC (16:40)
[2024-11-29] MEDS: REQUIP 2 MG PO (19:58)
[2024-11-29 20:02] VITALS: BP 120/71
[2024-11-29 23:46] VITALS: BP 117/66
[2024-11-30] VITALS (8 sets, daily range): BP systolic 90–147; BP diastolic 60–93; PULSE 83; O2SAT 91; BMI 24.9
[2024-11-30 04:22] LABS: B.E. 7.1 mmol/L; O2 Saturation % 96.8 % (94-98); PCO2 46 mmHg (32-35); PO2 73 mmHg (83-108); pH 7.45 (7.35-7.45)
[2024-11-30 04:26] LABS: O2 Therapy ROOM AIR
--- NOTE | 2024-11-30 07:17 | W.PN.HOSP.TC ---
Today's Communication/Plan
-
Patient to continue antibiotic treatment. Continue oxygen supplementation and try to wean off to room air as possible. Continue warming measures.
Assessment / Plan
Assessment / Plan
Assessment:
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
past few weeks. Patient was found to be bradycardic in the ED and given a dose of atropine and started on an epinephrine drip. Patient was admitted to the ICU. Patient underwent head CT which did not show any changes. Chest X-Ray showed some
possible bilateral opacities showing possible pneumonia versus atelectasis. Patient was started on antibiotics for pneumonia. Patient underwent a chest CT scan which showed massive hiatal hernia along with multifocal pneumonia. General surgery was
consulted for hernia repair, and antibiotics continued for pneumonia with further breathing management. Surgery was not recommended at this time. Patient was downgraded to telemetry. Patient continues to have occasional hypothermia but overall is
feeling better.
CXR (11/26/2024):
Large hiatal hernia/partially intrathoracic stomach, probably increased in size compared to previous radiograph of August 03, 2023.
Small left pleural effusion, which appears increased compared to previous radiograph. Parenchymal opacity within the left lower lung is most likely atelectasis, but underlying pneumonia difficult to exclude.
Patchy parenchymal opacity within the right lower lung is new from previous radiograph, with main differential considerations of pneumonia and/or atelectasis.
No evidence for pulmonary edema pattern.
CT Head w/o IV Contrast (11/26/2024):
No evidence of acute intracranial abnormality.
U/S Abd (11/26/2024):
Gallbladder appears within normal limits with no evidence for biliary ductal dilation. No focal abnormality of the liver.
Small right pleural effusion.
Minimal free fluid in the region of the hepatorenal fossa.
The pancreas and abdominal aorta are unable to be adequately visualized.
Mild to moderate renal parenchymal loss involving the right kidney with slightly irregular contour suggesting possible scarring.
Normal appearance of the left kidney.
Echocardiogram (11/27/2024):
LV ejection fraction is 65-70%. No regional wall motion abnormalities are seen.
Normal right ventricular size and function.
Moderately dilated left atrium. Moderately dilated right atrium.
Mild aortic stenosis; peak/mean gradients 14/8 mmHg, calculated SHANNAN 1.7 cm2.
Trace aortic regurgitation.
Moderate to severe tricuspid regurgitation. Estimated pulmonary artery pressure
of 40-[address] Chest W/o Iv Contrast (11/27/2024):
1. MASSIVE HIATAL HERNIA containing the entire stomach and mid transverse colon.
2. Large amount of subpleural airspace consolidation in the left lower lobe adjacent to the hiatal hernia which is likely chronic compressive atelectasis and scarring.
3. Small to moderate-sized airspace consolidations in the superior segment of the right lower lobe and anterior segment of the right upper lobe which is most likely MULTIFOCAL PNEUMONIA given the location and morphology of the airspace
consolidations.
4. Moderate subpleural airspace consolidation in the right lower lobe (either compressive atelectasis or pneumonia).
5. Small bilateral pleural effusions.
6. Moderate to severe air distention of the esophagus proximal to the hiatal hernia.
7. Mild cardiomegaly.
8. Severely exaggerated upper thoracic kyphosis and multilevel discogenic degenerative disease throughout the cervical, thoracic, and lumbar spine.
9. 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
Plan:
#Symptomatic bradycardia
- Seen on EKG as above
- admitted to ICU due to requirement of epinephrine gtt (to keep pulse >60, MAP >65)
- holding propranolol
- Echocardiogram showed moderate to severe tricuspid regurgitation with pulmonary artery pressure of 40-45 mmHg and left ejection fraction of 65-70%
- most likely the cause of somnolence and altered mental status
- Cortisol levels - Random cortisol 17.8
- cardiology consulted, input appreciated
- Following CT scan, bradycardia most likely due to massive hiatal hernia
- Surgery not recommended at this time
- Patient downgraded to telemetry. Blood pressure and bradycardia resolving.
- As per cardiology, will not be resuming propranolol. Holding nifedipine
- Possibly starting losartan 25 mg daily tomorrow
# Massive hiatal hernia seen on CT scan
- CT chest results as above
- Most likely causing patient's symptoms including bradycardia and predisposed patient to getting pneumonia
- Surgery team consulted, input appreciated
- Hernia repair not indicated at this time as per surgery team. They want pneumonia resolution first
#Hypoxia requiring supplemental oxygen
- Chest x-ray results as above
- Chest CT results as above
- neg flu, neg COVID
- Blood cultures show no growth
- Procalcitonin negative
- Continue IV ceftriaxone for pneumonia
- supportive measures with supplemental oxygen as needed
- Patient currently requiring 2 L of oxygen, will try weaning off to room air as possible
# Septic shock (POA)/Hypothermia secondary to pneumonia
- Blood cultures negative, urine cultures pending
- Patient on lactated Ringer's with dextrose for fluids
- inflammatory markers
- normal tsh, and free t4
- warming measures and abx treatment with Cefepime/Metronidazole
- ID Consulted, input appreciated
- Had some hypothermia today, continue monitoring temperatures and warming measures
- Continue IV antibiotics
# Asymptomatic bacteruria
-Patient found to have abnormal UA on presentation to the ED
-Most likely not due to UTI
-Patient had no symptoms of UTIs
-Urine culture grew Streptococcus species
#Altered Mental Status most likely due to persistent bradycardia
- CT scan findings as above (No acute findings seen)
- Patient has been off of the epinephrine now
- Mental status has improved
- Patient on ropinirole
# Pancytopenia
- Hematology consulted, input appreciated
- Patient has normocytic anemia which may be chronic, thrombocytopenia
- As per hematology notes, changes seem to be due to her current infection
- MMA, folate, iron studies, reticulocytes, heme stool ordered by hematology
- Further testing ordered by hematology including Beta-2-GPI IgG Ab, Beta-2-GPI IgM Ab, Anti-Cardiolipin IgG Ab, Anti-Cardiolipin IgA Ab, Anti-Cardiolipin IgM Ab
- Coagulation studies also ordered by hematology
- Patient has increased fibrinogen and D-dimer levels
#Transaminitis
- U/S negative for any acute findings
- Hepatitis panel negative
- No alcohol levels seen
- Probably secondary to sepsis from pneumonia leading to shock liver
- GI was consulted to help with further management, input appreciated
- GI signed off, as ultrasound/hepatitis panel/further workup was negative
- LFTs trending down
DVT Prophylaxis - Lovenox
Full Code
Anticipated Discharge: 24 - 48 hours
Subjective/Interval History
-
Date of Service: November 30, 2024
Seen with patient's family in room including her daughter and . Daughter was very anxious and kept asking about how we will know if pneumonia is resolved and if we need further imaging. Also very worried about her blood count and carbon
dioxide levels. Overall patient seems to be much improved, with her breathing and shortness of breath both improved from before. Patient seems to have more energy from yesterday as well.
Objective Data
-
Labs:
Laboratory Results
11/30/24 11/30/24
04:13 06:00
WBC Pending
Hgb Pending
Hct Pending
Plt Count Pending
HCO3 32.0 H
Sodium Pending
Potassium Pending
Chloride Pending
Carbon Dioxide Pending
BUN Pending
Creatinine Pending
Glucose Pending
Calcium Pending
Vital Signs:
Vital Signs
Temp Pulse Resp BP Pulse Ox
97.9 F 76 18 144/75 95
11/30/24 03:52 11/30/24 03:52 11/30/24 03:52 11/30/24 03:52 11/30/24 03:52
I&O
11/29/24 11/30/24 12/01/24
06:59 06:59 06:59
Intake Total 1040 / 1040 600 / 600
Output Total 295 / 295
Balance 745 / 745 600 / 600
Review of Systems
-
History Source: Patient and Family
Constitutional: Reports Fatigue
EENT: Reports No Symptoms Reported
Respiratory: Denies Cough, Trouble Breathing or Wheezing
Cardiac: Denies Chest Pain, Palpitations or Syncope
Abdomen/GI: Denies Abdominal Pain, Nausea or Vomiting
Genitourinary: Reports No Symptoms
Musculoskeletal: Reports No Symptoms
Skin: Reports No Symptoms
Neuro: Reports No Symptoms
Endocrine: Reports No Symptoms
Hematologic / Lymphatic: Reports No Symptoms
Allergy / Immunology: Reports No Symptoms
[2024-11-30] MEDS: PROTONIX 40 MG PO (08:21)
[2024-11-30] MEDS: PROCARDIA XL (EXTENDED RELEASE) 30 MG PO (08:21)
--- NOTE | 2024-11-30 08:44 | W.PN.PUL3 ---
Today's Communication / Plan
-
PT/OT, ambulate
Continue ceftriaxone, till 12/02
Consider transition to oral, defer to primary service
Aspiration precautions, head of bed elevated
Would recommend follow-up CT chest in 3 months for right upper lobe nodule
Although this is likely due to aspiration event, we will follow-up
Family interested in pursuing outpatient PAP therapy
Information left in chart
We will sign off. Please call with questions
Assessment
-
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
and lethargy over several weeks. Patient reportedly has been declining over the last few weeks with increased weakness, lethargy and easily falling asleep. Minimal symptoms of memory loss otherwise patient fairly able to communicate appropriately.
Also reported history of cough with frequent expectoration over the last few weeks. Patient goes through multiple tissues every day per patient's . Decreased p.o. intake reported. In the emergency room patient noted to be hypotensive,
hypoxic as well as bradycardic. She was given IV fluids, started on antibiotics and also received atropine followed by epinephrine infusion. 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
further recommendations.
ICU course reviewed. Patient responded to BiPAP
Family confirmed that mental status improved since transfer out of ICU
#1. Acute hypoxic respiratory failure with Hypotension, hypothermia with Aspiration pneumonia
Appears to be improved objectively and subjectively
Hypothermia improved
reviewed CT imaging, patchy infiltrate at base, elevated left hemidiaphragm with hiatal hernia
Continue with aspiration precautions, head of bed elevated
Patient profoundly deconditioned
PT/OT
To screen for home oxygen
Complete antibiotics 12/02. May consider transition to oral
#2. Symptomatic bradycardia
This has resolved
TSH normal, Cortisol normal
Hypertension noted
Cardiology following
Hypothermia improved
#3. Metabolic encephalopathy, complicated by hypercapnia
Improved
CT head, TSH, B12 unremarkable
Avoiding any sedating medication
Family states patient has been increasing fatigue with excessive daytime sleepiness at home over the past 6 to 12 months
ABG 7.45/46/73
Strong suspicion for sleep disordered breathing, combined with mild kyphosis, hiatal hernia
would like to pursue PAP therapy as outpatient
Will recommend pulmonary follow-up, sleep clinic follow-up
#4. Acute on chronic hypercapnic respiratory failure
Suspect chronic restrictive lung disease due to large hiatal hernia with stomach and colon sitting in thoracic cavity. Exacerbated by bilateral aspiration pneumonia
Responded well to BIPAP with improved CO2 and mental status.
ABG reviewed
Incentive spirometry. Based on bedside evaluation, patient profoundly deconditioned, could not do incentive spirometry adequately
Family aware of profound deconditioning
#5. Very large intra thoracic hiatal hernia
Speech therapy eval
Video swallow eval
Gen surgery service on case
NG could not be placed despite multiple attempts
#6. Mild hyperkalemia. Also elevated BUN/Cr ratio. Hypovolemic
Resolved with IVF
#7. right upper lobe nodule
Although this may be consistent with aspiration event/pneumonitis, posterior isolated location somewhat peculiar
May consider follow-up CT imaging in 3 to 6 months
and daughter at bedside prefers follow-up CT imaging in 3 months
DVT and GI prophylaxis. Protonix and Lovenox
Reviewed with and daughter at bedside.
Patient may benefit from pulmonary follow-up as outpatient given suspicion for sleep disordered breathing
Follow-up information left in chart
We will sign off. Please call with questions
Echo 11/2024: LV ejection fraction is 65-70%. No regional wall motion abnormalities are seen.
Normal right ventricular size and function. Moderately dilated left atrium. Moderately dilated right atrium. Mild aortic stenosis; peak/mean gradients 14/8 mmHg, calculated SHANNAN 1.7 cm2. Trace aortic regurgitation.
Moderate to severe tricuspid regurgitation. Estimated pulmonary artery pressure of 40-[address] Chest 11/2024: 1. MASSIVE HIATAL HERNIA containing the entire stomach and mid transverse colon.
2. Large amount of subpleural airspace consolidation in the left lower lobe adjacent to the hiatal hernia which is likely chronic compressive atelectasis and scarring.
3. Small to moderate-sized airspace consolidations in the superior segment of the right lower lobe and anterior segment of the right upper lobe which is most likely MULTIFOCAL PNEUMONIA given the location and morphology of the airspace
consolidations.
4. Moderate subpleural airspace consolidation in the right lower lobe (either compressive atelectasis or pneumonia).
5. Small bilateral pleural effusions.
6. Moderate to severe air distention of the esophagus proximal to the hiatal hernia.
7. Mild cardiomegaly.
8. Severely exaggerated upper thoracic kyphosis and multilevel discogenic degenerative disease throughout the cervical, thoracic, and lumbar spine.
9. 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
Subjective Data
-
Date of Service:
Date of Service: November 30, 2024
Subjective:
Patient feels improved today. Less fatigued, appetite improving. and daughter at bedside. Patient denies chest pain, nausea. Denies hemoptysis
Objective Data
Data Reviewed
Vital Signs / I&O / Oxygen:
Vital Signs
Temp Pulse Resp BP Pulse Ox
97.8 F 76 18 136/77 91
11/30/24 07:00 11/30/24 07:00 11/30/24 07:00 11/30/24 07:00 11/30/24 07:00
Intake and Output
11/29/24 11/30/24 12/01/24
06:59 06:59 06:59
Intake Total 1040 / 1040 600 / 600
Output Total 295 / 295
Balance 745 / 745 600 / 600
SaO2 91
Nasal Cannula flow liters per 2
minute
Physical Exam
General: Comfortable and Other (Large neck, kyphoscoliosis)
HEENT: Normocephalic, Anicteric and Moist Mucous Membranes
Cardiovascular: S1-S2, Regular Rhythm, Murmur (2/6 systolic murmur), Rub (n), Peripheral Edema (Trace) and Other (Mild chronic venous stasis changes)
Respiratory: Wheeze (n), Crackles (Minimal at base), Rhonchi (n), Non-Labored Respirations, Stridor (n) and Other (Decreased at base)
GI: Soft, Non Distended and Non Tender
Neurology: Awake, Alert, Oriented and No Motor Deficits (Generally weak, moves all extremities, can sit forward without assistance)
Skin: Cyanosis (n), Jaundice (n) and Rash (Mild lower extremity erythema, no warmth)
Labs/Micro/Reports
Laboratory Results
11/30/24
04:13
pH 7.45
pCO2 46 H
pO2 73 L
HCO3 32.0 H
O2 Delivery Level Room air
Microbiology
11/26/24 17:37 Blood/Venous Blood Culture - Preliminary
No Growth in 72 hours- Final report to follow
11/26/24 17:46 Blood/Venous Blood Culture - Preliminary
No Growth in 72 hours- Final report to follow
11/26/24 19:42 Urine Urine Culture - Final
Streptococcus species
[2024-11-30 08:45] LABS: Fibrinogen 555 MG/DL (199-459)
[2024-11-30 08:49] LABS: D-Dimer 2.78 ug/mlFEU (0.00-0.50)
[2024-11-30 08:51] LABS: Hematocrit 33.7 % (37.0-47.0); Hemoglobin 10.8 g/dL (12.0-16.0); Mean Corpuscular Volume 93.6 fL (81.0-99.0); Platelet Count 110 10^3/uL (130-400); Red Cell Dist. Width 15.5 % (11.5-14.5); White Blood Cell Count 5.1 10^3/uL (4.8-10.8)
[2024-11-30 09:11] LABS: Blood Urea Nitrogen 15 mg/dl (7-17); Calcium 9.3 mg/dl (8.4-10.2); Carbon Dioxide 30 mmol/L (22-30); Chloride 100 mmol/L (98-107); Estimated Creatinine Clearance 52 ml/min; Glucose 83 mg/dl (70-99); Potassium 4.7 mmol/L (3.5-5.1); Sodium 137 mmol/L (135-145); eGFR > 60.00
--- NOTE | 2024-11-30 09:12 | W.PN.CD ---
Today's Communication / Plan
-
add losartan 25mg daily can titrate up as needed for bp control
continue nifedipine, although may contribute to some swelling
no further cardiac recommendations
I will sign off
Impression / Plan
-
Large hiatal hernia
-discussed with hospitalist: needs surgical evaluation
-from cardiac perspective, she is intermediate risk, and no additional testing recommended at this time
Bradycardia
-echo 11/27: EF 65-70%, mild , nl RV, moderate/severe TR, PASP 45
-in setting of hypothermia/sepsis, and beta leela therapy
-Will likely not resume propranolol.
Hypertension, but now with hypotension/sepsis
-beta leela held for bradycardia
-Blood pressure recovering; patient was on nifedipine, losartan, and propranolol as outpatient
-nifedipine resumed, will add low dose losartan.
Sepsis: in setting of PNA
-Continue Abx per Hospitalist.
Valvular heart disease--mild , moderate to severe TR:
-Continue to monitor clinically.
Transaminitis, worsening, GI consulted
Chronic lower extremity lymphedema
Dyslipidemia, pravastatin on hold due to abnormal LFT
Subjective;
she is feeling well without complaint today, slight swelling in her hands b/l but improved from yesterday
Physical Exam
Vital Signs/Labs
Vital Signs
Temp Pulse Resp BP Pulse Ox
97.8 F 76 18 136/77 91
11/30/24 07:00 11/30/24 07:00 11/30/24 07:00 11/30/24 07:00 11/30/24 07:00
11/29/24 11/30/24 12/01/24
06:59 06:59 06:59
Actual Weight 70.052 kg
11/30/24 08:11
11/30/24 08:11
TSH 3.32 uIU/ml (0.47-4.68) 11/26/24 17:37
Free T4 1.51 ng/dl (0.78-2.19) 11/26/24 20:18
Physical Exam
Constitutional: No acute distress
Cardiovascular: Rhythm & rate is regular, Pedal edema is absent, JVD pressure is normal, Diastolic murmur absent and Systolic murmur present
Respiratory: Respiratory effort normal, Lungs clear to auscul., Wheeze Absent, Crackles Absent and Rhonchi Absent
Neuro/Psych: AO x 3
Data Reviewed
-
Date of Service: November 30, 2024
Medical Decision Making: Review of Case with other Provider (Dr Singletary, adding losartan )
[2024-11-30 10:09] LABS: Folate 14.7 ng/ml (2.76-20)
[2024-11-30] MEDS: COZAAR 25 MG PO (11:07)
--- NOTE | 2024-11-30 11:36 | W.PN.UPDATE ---
Update Note
Progress Note Update
I saw and evaluated the patient. I reviewed the resident�s note and agree with findings and plan as documented in the resident�s note.
Denies SOB.
Gen: NAD, Awake and alert, NCAT
Eyes: EOMI, no scleral icterus
CV: RRR, +S1/S2, no m/r/g.
Resp: continues to remain CTAB anteriorly, no rales, wheezes, or rhonchi.
Abd: +BS, soft, NT, ND
Skin: No rashes.
Neuro: CN2-12 intact
Psych: normal mood and affect
11/26/24 17:37 Blood/Venous Blood Culture - Preliminary
No Growth in 72 hours- Final report to follow
11/26/24 17:46 Blood/Venous Blood Culture - Preliminary
No Growth in 72 hours- Final report to follow
11/26/24 19:42 Urine Urine Culture - Final
Streptococcus species
11/26/24 17:37 Nasal Swab Influenza Types A & B ([facility]) - Final
Negative for Influenza A & B, NAAT
Negative results must be combined with clinical observations
and patient history.
Nucleic Acid Amplification test (NAAT)performed on the
[employer] platform.
CXR: Large hiatal hernia/partially intrathoracic stomach, probably increased in size compared to previous radiograph of August 03, 2023. Small left pleural effusion, which appears increased compared to previous radiograph. Parenchymal opacity
within the left lower lung is most likely atelectasis, but underlying pneumonia difficult to exclude. Patchy parenchymal opacity within the right lower lung is new from previous radiograph, with main differential considerations of pneumonia and/or
atelectasis. No evidence for pulmonary edema pattern.
CT brain: No evidence of acute intracranial abnormality.
Abd U/S: Gallbladder appears within normal limits with no evidence for biliary ductal dilation. No focal abnormality of the liver. Small right pleural effusion. Minimal free fluid in the region of the hepatorenal fossa. The pancreas and abdominal
aorta are unable to be adequately visualized. Mild to moderate renal parenchymal loss involving the right kidney with slightly irregular contour suggesting possible scarring. Normal appearance of the left kidney.
Echo: LV ejection fraction is 65-70%. No regional wall motion abnormalities are seen.
Normal right ventricular size and function.
Moderately dilated left atrium. Moderately dilated right atrium.
Mild aortic stenosis; peak/mean gradients 14/8 mmHg, calculated SHANNAN 1.7 cm2.
Trace aortic regurgitation.
Moderate to severe tricuspid regurgitation. Estimated pulmonary artery pressure
of 40-[address] chest:
1. MASSIVE HIATAL HERNIA containing the entire stomach and mid transverse colon.
2. Large amount of subpleural airspace consolidation in the left lower lobe adjacent to the hiatal hernia which is likely chronic compressive atelectasis and scarring.
3. Small to moderate-sized airspace consolidations in the superior segment of the right lower lobe and anterior segment of the right upper lobe which is most likely MULTIFOCAL PNEUMONIA given the location and morphology of the airspace
consolidations.
4. Moderate subpleural airspace consolidation in the right lower lobe (either compressive atelectasis or pneumonia).
5. Small bilateral pleural effusions.
6. Moderate to severe air distention of the esophagus proximal to the hiatal hernia.
7. Mild cardiomegaly.
8. Severely exaggerated upper thoracic kyphosis and multilevel discogenic degenerative disease throughout the cervical, thoracic, and lumbar spine.
9. 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
Massive hiatal hernia:
-CT chest: MASSIVE HIATAL HERNIA containing the entire stomach and mid transverse colon.
-surgery following. Case discussed with Dr. Caputo. I favor surgical intervention sooner rather than later.
-NGT attempted x 3 but failed
Symptomatic bradycardia:
-Hypotension and bradycardia s/p atropine
-ECG (read by me): SB @ 50, nl axis, 1st deg AVB with RI 204ms, no acute ST/TW changes
-was on epi gtt, now off
-holding home propranolol
-Fasting cortisol, TSH, free T4 normal
-cards following
-echo above
-HR has improved
Septic shock, POA, due to R-sided multifocal PNA:
-presented with hypothermia/bradycardia/leukopenia/hypoxia/acute metabolic encephalopathy
-acute hypoxemic respiratory failure, was on BIPAP, now on 3L NC O2
-tom Rocephin
-COVID/Flu NEG
-BCxs NGTD
-warming measures PRN
Transaminitis:
-likely due to shock liver/hypoperfusion/passive congestion from TR
-Acute viral hepatitis panel negative
-transaminases improved
-GI has signed off
Other problems:
Essential HTN: cont Nifedipine, resume Losartan at 25mg daily
Pancytopenia: likely due to bone marrow suppression due to sepsis. Heme following.
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
RLS
Asymptomatic bacteruria
Pt's and daughter updated at bedside.
FULL/Lovenox
Total time spent on today's encounter was 51 minutes which included time spent in counseling the patient/family regarding diagnosis and treatment plan as listed above, goals of care, and symptom management. Case was discussed with nursing staff,
specialists, and care coordinators/case management. All labs and imaging personally reviewed by me. Remainder the time spent in detailed review of previous records, lab data, imaging, and other medical provider documentation.
[2024-11-30] MEDS: ROCEPHIN 1000 MG IV (13:39)
[2024-11-30] MEDS: MIRALAX 17 GRAMS PO (13:40)
[2024-11-30] MEDS: FLUSH (NSS) 1 FLUSH IV ×2 (13:40)
[2024-11-30] MEDS: STERILE WATER FOR INJECTION 10 ML IV (13:40)
--- NOTE | 2024-11-30 14:02 | W.PN.GS2 ---
Addendum entered and electronically signed by Almas Caputo MD 11/30/24 14:59:
Patient seen and examined with surgical MAIL CLERK. Agree with documented progress note.
Daughters at bedside today. Yesterday was her [id number] and patient's .
Patient sitting up at bedside having just recently had lunch which she tolerated well other than some early satiety.
Denies nausea, denies abdominal pain, no vomiting, no regurgitation or heartburn.
AFVSS
NAD, much more alert and interactive today. Patient does not recall seeing me yesterday.
Abdominal examination deferred
A/P: 79-year-old female with type IV paraesophageal hernia admitted with aspiration pneumonia, recent significant deconditioning/failure to thrive, hypercapnia with metabolic encephalopathy.
In her current recovering acute status patient is a poor/high risk candidate for surgical correction of a large type IV paraesophageal hernia. Discussed with family members that the ideal surgical approach would be for optimization of the patient's
current deconditioning and medical frailty and then reassessment for possible surgical correction as an outpatient.
Patient seems to be tolerating dietary intake adequately with restrictions as already outlined in progress note below and previously.
Patient should follow-up with myself in the next 2 to 3 months for further outpatient discussions regarding long-term management of her paraesophageal hernia.
Original Note:
Today's Communication / Plan
-
Continue soft diet with supplements
Assessment / Plan
-
79F with recent primary repair of inguinal hernia in 2022 (not yet followed up for definitive repair) large type IV PEH involving stomach and transverse colon, several weeks of lethargy and likely aspiration PNA. PEH increased in size since 2022
AFVSS
Satting well on 2L NC
ID/Pulm following for PNA
Tolerating meals
Diet as per speech therapy but in general would recommend soft foods, small portion sizes, taking care to chew food completely and allowing time to pass.
Elevate head of bed
Avoid eating within few hours of laying flat or sleeping.
Recommend PPI for gastroprotective effect given large type IV paraesophageal hernia
No plans for emergent surgery at this time. Will plan further discussion of PEH repair as an outpatient once she has recovered from this acute illness/medically optimized.
Surgery will follow peripherally, please call with questions or concerns
Subjective Data
-
Date of Service: November 30, 2024
Patient seen and examined at bedside with Dr. Caputo. Family present. Patient oob to chair. Just finished lunch. Family notes some belching and early satiety but otherwise tolerated well. Patient denies pain or dysphagia.
Objective Data
-
Intake and Output
11/29/24 11/30/24 12/01/24
06:59 06:59 06:59
Intake Total 1040 / 1040 600 / 600
Output Total 295 / 295
Balance 745 / 745 600 / 600
Intake:
Oral fluids 240 / 240 600 / 600
IV fluids (Total) 800 / 800
D5lr 1,000 ml @ 80 mls/hr IV . 800 / 800
[id number] ERWIN Rx#:[id number]
Output:
Urine, Louis 295 / 295
Other:
Number of approximated MODERATE 3
amounts of urine
Number of approximated LARGE 1
amounts of urine
How many times incontinent 1 2
MODERATE amount urine
How many times incontinent 2 2
SATURATED amount urine
Vital Signs
Temp Pulse Resp BP Pulse Ox
97.8 F 82 20 133/71 92
11/30/24 11:00 11/30/24 11:00 11/30/24 11:00 11/30/24 11:00 11/30/24 11:01
Lab Results
11/30/24 08:11
11/30/24 08:11
Calcium 9.3 mg/dl (8.4-10.2) 11/30/24 08:11
Total Bilirubin 0.4 mg/dl (0.2-1.3) 11/28/24 03:40
AST 150 U/L (14-36) H 11/28/24 03:40
ALT 160 U/L (0-35) H 11/28/24 03:40
Alkaline Phosphatase 208 U/L (38-126) H 11/28/24 03:40
Total Protein 5.9 g/dl (6.3-8.2) L 11/28/24 03:40
Albumin 3.2 g/dl (3.5-5.0) L 11/28/24 03:40
Physical Exam
-
NAD, awake and alert
ABS: soft, ND, NT
--- NOTE | 2024-11-30 16:30 | CM ---
CM reviewed chart, patient seen bedside with daughters. Daughters report they are exploring SNF but also interested in home services, will discuss with their father, patients spouse. Patient remains on O2. Daughters inquiring about a hospital bed
and Palliative care services, reports patients spouse was not open to PAL services but now willing to speak to someone from Palliative care. CM will continue to follow for all discharge planning needs.
Plan; family discussing SNF versus home with VN, equipment, palliative care
[2024-11-30] MEDS: LOVENOX 40 MG SC (17:31)
--- NOTE | 2024-11-30 17:59 | W.PN.ID1 ---
Date of Service
Date of Service: November 30, 2024
Today's Communication
Sign off.
Assessment / Plan
Clinical sepsis
- Appears overall improved today.
- Cultures negative to date, and patient without leukocytosis
Hypothermia; improved
Leukopenia
Thrombocytopenia
Bradycardia; improved
Hypertension; improved, now off pressors
Transaminitis
� Likely secondary to recent hypotension
- Improved today
Elevated CRP
Pyuria (without dysuria)
GERD
HTN
Dyslipidemia
Restless legs syndrome
Recommendations:
Culture is negative. Patient remains afebrile and without leukocytosis.
Discontinue further antibiotics.
No apparent infectious process at present.
Will see again at your request.
����������������������������������������������������������
Chief Complaint
-: Clinical Sepsis and Pneumonia
Subjective / Review of Systems
Review of Systems: No Fever, No Chills and No Cough
Vital Signs / Physical Exam
Vital Signs
Vital Signs
Temp Pulse Resp BP Pulse Ox
97.8 F 83 20 131/69 93
11/30/24 15:00 11/30/24 15:00 11/30/24 15:00 11/30/24 15:00 11/30/24 15:00
Physical Exam
Constitutional: Comfortable and Non-toxic
Eyes: Sclera Anicteric
Pulmonary: Non Labored
Gastrointestinal: Non Distended
Skin: Warm and Dry
Neurological: Awake and Alert
Psychological: Calm
Objective Data
Lab Data
Lab Results
11/30/24 08:11
11/30/24 08:11
ESR 44 mm/hour (0-20) H 11/26/24 20:18
Estimated Creat Clear 52 ml/min 11/30/24 08:11
Lactic Acid Cancelled 11/26/24 22:01
Total Bilirubin 0.4 mg/dl (0.2-1.3) 11/28/24 03:40
GGT 30 U/L (12-43) 11/26/24 20:18
AST 150 U/L (14-36) H 11/28/24 03:40
ALT 160 U/L (0-35) H 11/28/24 03:40
Alkaline Phosphatase 208 U/L (38-126) H 11/28/24 03:40
C-Reactive Protein 18.20 mg/L (0.0-10.00) H 11/26/24 20:18
Most recent labs reviewed.
Micro Results:
11/26/24 17:37 Blood Culture - Preliminary
Blood/Venous No Growth in 4 days- Final report to follow
11/26/24 17:46 Blood Culture - Preliminary
Blood/Venous No Growth in 4 days- Final report to follow
11/26/24 19:42 Urine Culture - Final
Urine Streptococcus species
11/26/24 17:37 Influenza Types A & B ([facility]) - Final
Nasal Swab Negative for Influenza A & B, NAAT
Negative results must be combined with clinical observations
and patient history.
Nucleic Acid Amplification test (NAAT)performed on the
[employer] platform.
Imaging:
11/26/2024 CXR (2 view): Large hiatal hernia/partially intrathoracic stomach, likely increased in size compared to previous radiograph of July 2023. Small left pleural effusion is noted. Parenchymal opacity within the left lower lung is most
likely atelectasis, but underlying pneumonia difficult to exclude. Patchy parenchymal opacity within the right lower lung is new and may be either pneumonia or atelectasis.
[2024-11-30] MEDS: REQUIP 2 MG PO (20:10)
[2024-12-01 03:20] VITALS: BP 105/69
[2024-12-01 05:22] VITALS: BMI 24.3
[2024-12-01 07:00] VITALS: BP 155/88
[2024-12-01 07:21] LABS: Hematocrit 30.1 % (37.0-47.0); Hemoglobin 9.7 g/dL (12.0-16.0); Mean Corp Hgb Conc. 32.2 g/dL (33.0-37.0); Mean Corpuscular Hgb 29.8 pg (27.0-31.0); Mean Corpuscular Volume 92.3 fL (81.0-99.0); Platelet Count 120 10^3/uL (130-400); Red Blood Cell Count 3.26 10^6/uL (4.20-5.40); Red Cell Dist. Width 15.1 % (11.5-14.5); White Blood Cell Count 5.4 10^3/uL (4.8-10.8)
[2024-12-01 07:59] LABS: Blood Urea Nitrogen 15 mg/dl (7-17); Calcium 8.8 mg/dl (8.4-10.2); Carbon Dioxide 33 mmol/L (22-30); Chloride 97 mmol/L (98-107); Estimated Creatinine Clearance 59 ml/min; Glucose 82 mg/dl (70-99); Potassium 4.5 mmol/L (3.5-5.1); Sodium 135 mmol/L (135-145); eGFR > 60.00
[2024-12-01] MEDS: PROTONIX 40 MG PO (09:04)
[2024-12-01] MEDS: MIRALAX 17 GRAMS PO (09:04)
[2024-12-01] MEDS: PROCARDIA XL (EXTENDED RELEASE) 30 MG PO (09:04)
[2024-12-01] MEDS: COZAAR 25 MG PO (09:04)
[2024-12-01 11:00] VITALS: BP 114/60
--- NOTE | 2024-12-01 12:17 | W.PN.HOSP.TC ---
Today's Communication/Plan
-
medically clear for d/c
assess for home O2 if going home
PT/OT rec SNF
Assessment / Plan
Assessment / Plan
pt is an 79 year old female
acute Hypoxemia--likely due to massive hiatal hernia-- requiring supplemental oxygen--covid/flu neg--finished abx for PNA--ID/pulm/cards/surgery ALL signed off--will assess for home O2- Blood cultures show no growth- Procalcitonin negative
Massive hiatal hernia seen on CT scan--causing all issues most likely including bradycardia--NO PLANS FOR SURGERY THIS ADMISSION--needs to get stronger--apprec surg--signed off--follow up in 2-3 months
Symptomatic bradycardia--due to hiatal hernia--apprec cards--signed off-- stopping and NOT restarting propranolol- Echocardiogram showed moderate to severe tricuspid regurgitation with pulmonary artery pressure of 40-45 mmHg and left ejection
fraction of 65-70%- Cortisol levels - Random cortisol 17.8-- Surgery not recommended at this time--Holding nifedipine- Possibly starting losartan --cortisol and TFTs WNL
Septic shock (POA)/Hypothermia secondary to pneumonia--resolved--apprec ID--signed off--finished ABX
Asymptomatic bacteruria--Patient found to have abnormal UA on presentation to the ED--Urine culture grew Streptococcus species--finished ABX
Altered Mental Status most likely due to persistent bradycardia--resolved
Pancytopenia- Hematology consulted, input appreciated- Patient has normocytic anemia which may be chronic, thrombocytopenia- As per hematology notes, changes seem to be due to her current infection- MMA, folate, iron studies, reticulocytes, heme
stool ordered by hematology- Further testing ordered by hematology including Beta-2-GPI IgG Ab, Beta-2-GPI IgM Ab, Anti-Cardiolipin IgG Ab, Anti-Cardiolipin IgA Ab, Anti-Cardiolipin IgM Ab
Transaminitis- U/S negative for any acute findings- Hepatitis panel negative- No alcohol levels seen- Probably secondary to sepsis from pneumonia leading to shock liver- GI signed off, as ultrasound/hepatitis panel/further workup was negative
- LFTs trending down
DVT Prophylaxis - Lovenox
code status--Full Code
all consultants have signed off--assess for home O2 if going home but PT/OT rec SNF--medically clear for d/c
Anticipated Discharge: Within 24 hours
Subjective/Interval History
-
Date of Service: December 01, 2024
pt sitting in the chair--daughter at bedside
Objective Data
-
Labs:
Laboratory Results
12/01/24
06:02
WBC 5.4
Hgb 9.7 L
Hct 30.1 L
Plt Count 120 L
Sodium 135
Potassium 4.5
Chloride 97 L
Carbon Dioxide 33 H
BUN 15
Creatinine 0.7
Glucose 82
Calcium 8.8
Vital Signs:
max temp for 24 hours
12/01/24
03:20
Temp 98.2 F
Vital Signs
Temp Pulse Resp BP Pulse Ox
97.8 F 70 24 114/60 95
12/01/24 11:00 12/01/24 11:00 12/01/24 11:00 12/01/24 11:00 12/01/24 11:00
I&O
11/30/24 12/01/24 12/02/24
06:59 06:59 06:59
Intake Total 600 / 600 510 / 510
Output Total 700 / 700
Balance 600 / 600 -190 / -190
Review of Systems
-
All other systems: Reviewed and negative
Physical Exam
-
General: Well Developed, Well Nourished and No Apparent Distress
HEENT: Normocephalic, Atraumatic and Oxygen
Respiratory: Decreased Breath Sounds
Cardiac: Regular Rhythm and S1/S2; Negative Murmur
GI: Soft, Nontender, Nondistended and Normal Bowel Sounds
Musculoskeletal: No Clubbing, No Cyanosis and No Edema
Neuro: Awake
Psych: Calm
[2024-12-01] MEDS: FLUSH (NSS) IV ×2 (12:49)
[2024-12-01 14:38] VITALS: BMI 24.3
[2024-12-01 15:00] VITALS: BP 121/65
--- NOTE | 2024-12-01 15:21 | RESPNOTE ---
Patient home oxygen assessment on hold at this time per RN (disposition status). Family discussions ongoing.
--- NOTE | 2024-12-01 15:55 | CM ---
Addendum entered by Diana Emerson 12/01/24 16:29:
Per Tita Beal, CM was instructed to submit Home Health referral via [facility] for Outpatient Palliative Care Services
Original Note:
Per Attending, patient is medically clear for discharge
CM met with patient, spouse, and family at bedside; explained that PT recommended SNF; patient declined;
Home Health services for VN, PT, and possible home oxygen offered; patient is agreeable;
Spouse also wants Palliative Care referral sent;
HH agency options identified; preference is [facility]
First floor home set up not in place today; agrees to discharge tomorrow; Need a script for a Hospital Bed
Home Health referral sent via [facility] to [facility]
Plan: discharge to home tomorrow with HH/VN/PT; CM will monitor need for Home Oxygen
[2024-12-01] MEDS: LOVENOX 40 MG SC (17:24)
[2024-12-01 19:36] VITALS: BP 145/79
[2024-12-01 21:00] LABS: Beta-2-Glycoprotein I Ab. IgG <10 SGU (<=20); Beta-2-Glycoprotein I Ab. IgM <10 SMU (<=20)
[2024-12-01] MEDS: REQUIP 2 MG PO (21:04)
[2024-12-01 23:14] VITALS: BP 121/75
[2024-12-02 03:55] VITALS: BP 116/62
[2024-12-02 06:00] VITALS: BMI 23.8
[2024-12-02 07:21] LABS: Cardiolipin IgA Antibody <10 APL (<=11); Cardiolipin IgM Antibody <10 MPL (<=12); Cardiolipin Igg Antibody <10 GPL (<=14)
[2024-12-02 07:40] VITALS: BP 138/72
[2024-12-02] MEDS: PROCARDIA XL (EXTENDED RELEASE) 30 MG PO (09:04)
[2024-12-02] MEDS: PROTONIX 40 MG PO (09:04)
[2024-12-02] MEDS: COZAAR 25 MG PO (09:04)
[2024-12-02] MEDS: MIRALAX 17 GRAMS PO (09:05)
--- NOTE | 2024-12-02 10:08 | CM ---
Addendum entered by Diana Emerson 12/02/24 13:00:
Demographics and clinicals faxed to [facility]patient [facility] # [phone]
Addendum entered by Diana Emerson 12/02/24 11:42:
Plan: Discharge to home today with home health ([facility]) and home oxygen ([employer])
will transport
Addendum entered by Diana Emerson 12/02/24 11:31:
Home Oxygen needed; demographics and clinicals faxed to Jailene @ [facility] # [phone]
Original Note:
Plan: Discharge to Home today
Met with patient's ; per request provided Palliative Care brochure
IMM benefit explained; signed form @ [id number]
Ambulation oximetry evaluation pending
[2024-12-02 10:58] VITALS: BP 137/71; PULSE 89; O2SAT 96
[2024-12-02 11:00] VITALS: BP 137/71; PULSE 89; O2SAT 96
--- NOTE | 2024-12-02 11:22 | W.PN.HOSP.TC ---
Today's Communication/Plan
-
d/c home with O2
Assessment / Plan
Assessment / Plan
pt is an 79 year old female
Patient is in need of oxygen at 2 liters/minute via nasal cannula continuously due to pulse oximetry of 87% on room air at rest. Oxygen will help to improve hypoxemia. Patient is mobile within the home. DuoNeb therapy has been tried and is
ineffective in treating hypoxemia related symptoms. Oxygen is needed to improve symptoms.
Patient is in need of a semi-electric hospital bed with foam mattress due to the need to elevate head of bed above 30 degrees to prevent aspiration and to facilitate frequent repositioning to prevent bed ulcers and pressure points.
acute Hypoxemia--likely due to massive hiatal hernia-- requiring supplemental oxygen--covid/flu neg--finished abx for PNA--ID/pulm/cards/surgery ALL signed off--qualifies for home O2- Blood cultures show no growth- Procalcitonin negative
Massive hiatal hernia seen on CT scan--causing all issues most likely including bradycardia--NO PLANS FOR SURGERY THIS ADMISSION--needs to get stronger--apprec surg--signed off--follow up in 2-3 months
Symptomatic bradycardia--due to hiatal hernia--apprec cards--signed off-- stopping and NOT restarting propranolol- Echocardiogram showed moderate to severe tricuspid regurgitation with pulmonary artery pressure of 40-45 mmHg and left ejection
fraction of 65-70%- Cortisol levels - Random cortisol 17.8-- Surgery not recommended at this time--Holding nifedipine- Possibly starting losartan --cortisol and TFTs WNL
Septic shock (POA)/Hypothermia secondary to pneumonia--resolved--apprec ID--signed off--finished ABX
Asymptomatic bacteruria--Patient found to have abnormal UA on presentation to the ED--Urine culture grew Streptococcus species--finished ABX
Altered Mental Status most likely due to persistent bradycardia--resolved
Pancytopenia- Hematology consulted, input appreciated- Patient has normocytic anemia which may be chronic, thrombocytopenia- As per hematology notes, changes seem to be due to her current infection- MMA, folate, iron studies, reticulocytes, heme
stool ordered by hematology- Further testing ordered by hematology including Beta-2-GPI IgG Ab, Beta-2-GPI IgM Ab, Anti-Cardiolipin IgG Ab, Anti-Cardiolipin IgA Ab, Anti-Cardiolipin IgM Ab
Transaminitis- U/S negative for any acute findings- Hepatitis panel negative- No alcohol levels seen- Probably secondary to sepsis from pneumonia leading to shock liver- GI signed off, as ultrasound/hepatitis panel/further workup was negative
- LFTs trending down
DVT Prophylaxis - Lovenox
code status--Full Code
all consultants have signed off
Anticipated Discharge: Today
Subjective/Interval History
-
Date of Service: December 02, 2024
pt doing OK
Objective Data
-
Vital Signs:
max temp for 24 hours
12/01/24
23:14
Temp 97.9 F
Vital Signs
Temp Pulse Resp BP Pulse Ox
98.2 F 86 14 138/72 94
12/02/24 07:40 12/02/24 07:40 12/02/24 07:40 12/02/24 07:40 12/02/24 07:40
I&O
12/01/24 12/02/24 12/03/24
06:59 06:59 06:59
Intake Total 510 / 510 1200 / 1200
Output Total 700 / 700
Balance -190 / -190 1200 / 1200
Review of Systems
-
All other systems: Reviewed and negative
Physical Exam
-
General: Well Developed, Well Nourished and No Apparent Distress
HEENT: Normocephalic, Atraumatic and Oxygen
Respiratory: Rhonchi
Cardiac: Regular Rhythm and S1/S2; Negative Murmur
GI: Soft, Nontender, Nondistended and Normal Bowel Sounds
Musculoskeletal: No Clubbing, No Cyanosis and No Edema
Neuro: Awake
Psych: Calm
[2024-12-02 11:30] VITALS: BP 137/71
[2024-12-02 13:14] VITALS: BP 137/71
--- NOTE | 2024-12-02 13:18 | W.DCSUMMARY ---
Discharge Summary
Discharge Data
Date of Admission: 11/26/24
Date of Discharge: 12/02/24
Total time spent discharging patient (in min): 38
-
Pending Results: Yes
Additional Pending Results:
Methylmalonic acid, beta-2 GPI immunoglobulin G antibody, beta-2 GPI IgM antibody, anticardiolipin antibody IgG IgA and IgM
Hospital Course
Primary care physician : Cindy Camp
Principal Discharge diagnosis : Acute hypoxemia, symptomatic bradycardia, septic shock, pancytopenia
Chronic Discharge diagnosis : None
Hospital Course : Patient was an 79-year-old female who started having progressive weakness and lethargy over several weeks prior to admission. She became increasingly less responsive and more sleepy during the day. She is easily arousable but
then tends to go back to sleep. She denied any actual syncopal episode. She denied loss of consciousness. Patient's family reports that she had a chronic cough for approximately 2 months. She always brings up phlegm. They did not ascertain
whether she had any trouble swallowing or regurgitation. She does have a large hiatal hernia with reflux. Upon arrival in the emergency department, she was bradycardic to the low 30s and hypothermic. Oxygen saturation was 93% on room air. Chest
x-ray showed patchy bilateral opacities. Patient became hypotensive in the setting of her bradycardia and was given a dose of atropine and epinephrine drip started. Patient was admitted to the ICU.
Problem #1: Acute hypoxemia/symptomatic bradycardia/septic shock. Patient was seen in consultation by the manager non profit, cardiology, GI, infectious disease, hematology, surgery, and palliative care. It is felt that all of these issues are related to
a massive hiatal hernia found on CAT scan of the chest which shows the entire stomach and mid transverse colon in her chest. In addition, she had airspace consolidation that was treated for pneumonia. Broad-spectrum antibiotics were started and
eventually stopped. Cultures were negative and the patient did not have leukocytosis. Patient underwent echocardiogram which showed an ejection fraction of 65 to 70% with moderate to severe tricuspid regurgitation. Propranolol was discontinued
and stopped as an outpatient. Nifedipine was resumed by discharge as well as starting low-dose losartan. She was able to be weaned off the epi drip and again this is all thought to be due to compression from hiatal hernia. Patient was continued
on aspiration precautions. It is recommended a follow-up chest CT in 3 months. It is recommended that the patient have an outpatient sleep study as well. General surgery was consulted for possible repair of this hiatal hernia. Patient was a poor
surgical candidate and high risk surgical candidate for correction of a large type IV paraesophageal hernia. Surgery did discuss with family members that the ideal surgical approach would be for optimization of the patient's current deconditioning
and reassessment. It is recommended that they follow-up with surgery in 2 to 3 months. She has been instructed to eat small meals and to sit upright at least an hour after eating. Palliative care was also consulted and hospice was mentioned
however spouse became very emotional and crying hysterically at her bedside. They should follow-up with palliative care as an outpatient.
Problem #2: Pancytopenia. Hematology was consulted for her leukopenia and cytopenias. This was all thought to be due to infection and sepsis from presumed pneumonia that was diagnosed on admission. Blood cultures were negative. Counts should
improve with resolution of underlying issue.
In preparation for discharge, patient had an assessment for home oxygen. She does qualify for 2 L of nasal cannula continuously due to a pulse ox of 87% on room air at rest. In addition she likely will need a semi-electric hospital bed to keep her
head of bed above 30 degrees to prevent aspiration.
Patient is stable for discharge home at this time with oxygen. If there are any questions regarding this dictation or her hospital stay, please do not hesitate to call. Our office number is [phone].
Time for discharge 38 minutes.
Important imaging findings :
CT CHEST IMPRESSION:
1. MASSIVE HIATAL HERNIA containing the entire stomach and mid transverse colon.
2. Large amount of subpleural airspace consolidation in the left lower lobe adjacent to the hiatal hernia which is likely chronic compressive atelectasis and scarring.
3. Small to moderate-sized airspace consolidations in the superior segment of the right lower lobe and anterior segment of the right upper lobe which is most likely MULTIFOCAL PNEUMONIA given the location and morphology of the airspace
consolidations.
4. Moderate subpleural airspace consolidation in the right lower lobe (either compressive atelectasis or pneumonia).
5. Small bilateral pleural effusions.
6. Moderate to severe air distention of the esophagus proximal to the hiatal hernia.
7. Mild cardiomegaly.
8. Severely exaggerated upper thoracic kyphosis and multilevel discogenic degenerative disease throughout the cervical, thoracic, and lumbar spine.
9. 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
Discharge Plan
-
Patient Disposition: Home with Home Care
Discharge Diagnosis/Procedures: Acute hypoxemia due to massive hiatal hernia, symptomatic bradycardia due to massive hiatal hernia, septic shock due to pneumonia, asymptomatic bacteriuria, pancytopenia, transaminitis
Condition: Good
Diet: As tolerated and Supplements
Additional Diets: Smaller portions. Soft foods with protein supplements as needed. Avoid late night eating and stay upright for an hour after meals
Activity: As tolerated
Driving Restrictions: No driving
Bathing Restrictions: None
Other Services: VN, PT, OT and ST
Referrals:
Cindy Camp MD [Family Provider] - in less than 1 week
Marco Morales MD [Active] -
(Andrew or Isaiah in 1-[address] chest in 1-2 mo
Will need HST. Family interested in sleep apnea rx if identified)
Tita Beal NP [Specified Professional Personl] - (they should reach out to you)
Almas Caputo MD [Active] - in three to four weeks
Prescriptions:
New
losartan 25 mg Tablet
25 mg PO DAILY Qty: 30 0RF
Rx Instructions:
NEW DOSE
acetaminophen 325 mg Tablet
650 mg PO Q6HPRN PRN (Reason: mild pain/ fever>100.5F) Qty: 0 0RF
nifedipine 30 mg Tablet Extended Release
30 mg PO DAILY Qty: 0 0RF
Continued
docusate sodium [Colace] 100 mg Capsule
100 mg PO DAILYPRN PRN (Reason: cosntipation)
pravastatin 20 mg Tablet
20 mg PO HS
ropinirole 2 mg Tablet
2 mg PO HS
magnesium oxide 250 mg magnesium Tablet
500 mg PO DAILY
Discontinued
propranolol 10 mg Tablet
10 mg PO BID Qty: 0 0RF
nifedipine 30 mg Tablet Extended Release
30 mg PO HS
Mucinex DM 30-600 mg Tablet Extended Release 12 Hr
1 tab PO [id number] PRN (Reason: congestion)
losartan 100 mg Tablet
100 mg PO DAILY
Discharge Orders:
Discharge Patient (As Directed); Ordered 12/02/24
Ordered By: Melody Robbins
Discharge Date and Time
Print Language: BULGARIAN
[2024-12-02] MEDS: FLUSH (NSS) IV ×2 (13:55→14:00)
[2024-12-03 10:11] LABS: Methylmalonic Acid 1.49 umol/L (0.00-0.40)
[2024-12-03 17:02] LABS: Anti-Xa Qualitative Interp Present (Not Present); Anticoagulant Med Neutralizati DOAC-Stop (Not Performed); Hexagonal Phospholipid Confirm Not Performed s (<=7.9); Neutralized PTT-LA Ratio Not Performed (<=1.20); Neutralized dRVTT Screen Ratio 1.37 (<=1.20); PTT-LA Ratio 1.14 (<=1.20); Prothrombin Time 14.1 s (12.0-15.5); Thrombin Time Not Performed s (<=19.5); dRVTT 1.1 Mix Ratio 1.14 (<=1.20); dRVTT Confirmation Ratio 1.25 (<=1.20); dRVTT Screen Ratio 1.26 (<=1.20)
== END 2024-12-02 15:31 | disposition home health service (06) | DRG 871 ==
LOC: 4 WEST ACU 20:47
PROVIDERS: Emergency Medicine; Internal Medicine Critical Care Medicine; Nurse Practitioner Acute Care; ADMITTING PHYSICIAN Internal Medicine; ATTENDING PHYSICIAN Internal Medicine; CONSULT PHYSICIAN Internal Medicine; CONSULT PHYSICIAN Internal Medicine Gastroenterology; CONSULT PHYSICIAN Internal Medicine Infectious Disease; CONSULT PHYSICIAN Surgery; EMERGENCY PHYSICIAN Emergency Medicine; FAMILY PHYSICIAN Internal Medicine; OTHER PHYSICIAN Internal Medicine; OTHER PHYSICIAN Internal Medicine Hematology & Oncology
PROC: 5A09357 Assistance with Respiratory Ventilation, Less than 24 Consecutive Hours, Continuous Positive Airway Pressure (ICD-10-PCS; 2024-11-27)
DX: A41.9 Sepsis, unspecified organism (principal); G93.41 Metabolic encephalopathy; J96.01 Acute respiratory failure with hypoxia; J69.0 Pneumonitis due to inhalation of food and vomit; J18.9 Pneumonia, unspecified organism; K72.00 Acute and subacute hepatic failure without coma; R65.21 Severe sepsis with septic shock; J96.22 Acute and chronic respiratory failure with hypercapnia; D61.818 Other pancytopenia; I10 Essential (primary) hypertension; I95.9 Hypotension, unspecified; E87.5 Hyperkalemia; I89.0 Lymphedema, not elsewhere classified; R68.0 Hypothermia, not associated with low environmental temperature; G25.81 Restless legs syndrome; E78.00 Pure hypercholesterolemia, unspecified; I07.1 Rheumatic tricuspid insufficiency; K21.9 Gastro-esophageal reflux disease without esophagitis; M19.012 Primary osteoarthritis, left shoulder; M19.011 Primary osteoarthritis, right shoulder; K44.9 Diaphragmatic hernia without obstruction or gangrene; R00.1 Bradycardia, unspecified; R82.71 Bacteriuria; Z11.52 Encounter for screening for COVID-19; Z79.899 Other long term (current) drug therapy
CPT/HCPCS: 36600; 70450; 71046; 71250; 74230; 76700; 80048; 80053; 80179; 80306; 81003; 81015; 82077; 82533; 82550; 82607; 82728; 82746; 82805; 82977; 83036; 83540; 83550; 83605; 83921; 84145; 84439; 84443; 84484; 85025; 85027; 85045; 85379; 85384; 85520; 85610; 85613; 85652; 85730; 86140; 86146; 86147; 86705; 86706; 86709; 86803; 87040; 87077; 87086; 87340; 87502; 87811; 92526; 92610; 92611; 93005; 93306; 94660; 96361; 96365; 96375; 97116; 97163; 97167; 97530; 97535; 99285

== ENCOUNTER 2024-12-09 17:24 | Emergency (ER) | payer OTHER, SELFPAY ==
[2024-12-09 17:28] VITALS: BP 149/83
[2024-12-09 17:46] LABS: % Basophils 1.2 % (0-2); % Eosinophils 2.4 % (0-6); % Immature Granulocytes 0.2 % (0-0.5); % Lymphocytes 16.8 % (20.5-51.1); % Monocytes 7.3 % (1.7-9.3); % Neutrophils 72.1 % (42.2-75.2); Absolute Basophils 0.1 10^3/uL (0-0.2); Absolute Eosinophils 0.1 10^3/uL (0-0.7); Absolute Lymphocytes 0.7 10^3/uL (1.2-3.4); Absolute Monocytes 0.3 10^3/uL (0.1-0.6); Absolute Neutrophils 3.1 10^3/uL (1.4-6.5); Hematocrit 36.6 % (37.0-47.0); Mean Corp Hgb Conc. 32.8 g/dL (33.0-37.0); Mean Corpuscular Hgb 29.9 pg (27.0-31.0); Mean Platelet Volume 8.9 fL (7.4-10.4); Nucleated Red Blood Cells % 0 %; Platelet Count 310 10^3/uL (130-400); Red Blood Cell Count 4.02 10^6/uL (4.20-5.40); Red Cell Dist. Width 14.7 % (11.5-14.5); White Blood Cell Count 4.2 10^3/uL (4.8-10.8)
[2024-12-09 18:07] LABS: ALT (SGPT) 33 U/L (0-35); AST (SGOT) 38 U/L (14-36); Albumin 3.9 g/dl (3.5-5.0); Alkaline Phosphatase 196 U/L (38-126); Blood Urea Nitrogen 18 mg/dl (7-17); Calcium 9.5 mg/dl (8.4-10.2); Carbon Dioxide 33 mmol/L (22-30); Chloride 98 mmol/L (98-107); Glucose 147 mg/dl (70-99); Potassium 4.6 mmol/L (3.5-5.1); Sodium 138 mmol/L (135-145); Total Bilirubin 0.5 mg/dl (0.2-1.3); Total Protein 7.9 g/dl (6.3-8.2); eGFR > 60.00
--- NOTE | 2024-12-09 19:30 | ED.GENMED ---
History of Present Illness
General
Chief Complaint: Anal/Rectal Problem
Source: patient
Exam Limitations: none
Time Seen by Provider: 12/09/24 19:04
History of Present Illness
History of Present Illness:
79yoF with a history of chronic respiratory failure on 2 L nasal cannula and hiatal hernia presenting with her and daughter for evaluation of constipation. states that she has not had a bowel movement since 12/03/2024 despite taking
stool softeners, prune juice, and milk of magnesia. She went to the bathroom around 2 PM this afternoon and noted what appeared to be a rectal prolapse. He called the director of casework services and was advised to bring her to the ED for evaluation.
Patient was able to have a bowel movement in the waiting room which was described as soft and brown. She denies any abdominal pain, rectal pain, or rectal bleeding.
Patient was recently hospitalized from 11/26/2024 until 12/02/2024. She presented with bradycardia and hypothermia. She was found to have a massive hiatal hernia on CAT scan which shows the entire stomach and mid transverse colon in the chest. She
also had some airspace consolidation and was treated for pneumonia. She received broad-spectrum antibiotics initially but this was stopped when cultures were negative. Patient denies any shortness of breath, fevers, chills, or other specific
concerns at this time.
Past History
Past History
ED Past Medical History: GERD, HTN and Hypercholesterolemia
ED Past Surgical History: Gynecological, Orthopedic and Other (SBO)
Social History
Tobacco: Non-smoker
Alcohol: None
Drug: None
Personal:
Living: with family
Phy Exam
General Physical Exam
General Presentation: well appearing and no apparent distress
General age: appears stated age
General Skin: warm and dry
General Habitus: normal
General Mental: alert
ENT Exam
ENT Exam: normocephalic
Pulmonary Exam
Pulmonary Exam: no respiratory distress
Gastrointestinal Exam
Gastrointestinal Exam: non tender, soft, non distended and other (Abdomen soft, non-distended, non-tender throughout. )
Stool: other (Non-thrombosed external hemorrhoids noted. No rectal prolapse. Soft brown stool on rectal exam. Patient is passing flatus during exam. )
Neurological Exam
Neurological Exam: alert
[place] Coma Scale
Eye Opening: Spontaneous
Verbal Response: Oriented
Motor Response: Obeys Commands
GCS Total Score: 15
Skin Exam
Skin Exam: normal color and warm/dry
Psychiatric Exam
Psychiatric Exam: normal mood/affect
Sepsis
Sepsis Screening
Sepsis Assessment: Sepsis Ruled Out
Sepsis Screen
Sepsis Screen: Sepsis Ruled Out
Date: 12/10/24
Time: 03:13
Course
Orders/Labs/Results
Orders:
Orders
12/09/24 17:38
Complete Blood Count/With Diff Urgent
Comprehensive Metabolic Panel Urgent
12/09/24 19:30
CR Chest - 2 Views Urgent
Comment:
Reason For Exam: hypothermia
Abnormal Lab Results
12/09/24
17:38
WBC 4.2 L 10^3/uL
(4.8-10.8)
RBC 4.02 L 10^6/uL
(4.20-5.40)
Hct 36.6 L %
(37.0-47.0)
MCHC 32.8 L g/dL
(33.0-37.0)
RDW 14.7 H %
(11.5-14.5)
Absolute Lymphs (auto) 0.7 L 10^3/uL
(1.2-3.4)
Lymphocytes % 16.8 L %
(20.5-51.1)
Carbon Dioxide 33 H mmol/L
(22-30)
BUN 18 H mg/dl
(7-17)
Glucose 147 H mg/dl
(70-99)
AST 38 H U/L
(14-36)
Alkaline Phosphatase 196 H U/L
(38-126)
12/09/24 17:38
12/09/24 17:38
Vital Signs
Initial and Last Documented VS:
Initial Vital Signs
Pulse Resp BP Pulse Ox
95 20 149/83 99
12/09/24 17:28 12/09/24 17:28 12/09/24 17:28 12/09/24 17:28
Last Documented Vital Signs
Temp Pulse Resp BP Pulse Ox
95.2 F L 95 20 149/83 99
12/09/24 21:54 12/09/24 17:28 12/09/24 17:28 12/09/24 17:28 12/09/24 17:28
MDM/Problems Addressed
Differential Diagnosis Includes:
79yoF here with constipation. No BM in 1 week. saw what looked like a rectal prolapse this afternoon. Patient was able to have a BM in the waiting. No complaints at this time. Specifically, she has no abdominal pain or rectal pain. Rectal
temp 94.0 during exam. Remainder of vitals are stable. She is in no acute distress. Abdominal exam is benign. No rectal prolapse seen. Soft brown stool on SARAI. Differential diagnosis includes but is not limited to: constipation, fecal impaction,
hemorrhoids, rectal prolapse
Initial ED plan: Labs obtained in triage. WBC 4.2. Creatinine WNL. Remainder of labs overall unremarkable. Will place on Rocio hugger and check chest x-ray.
*Critical Care Note
Total Time (30-74mins, 75-104mins- exclusive of procedures): Not Applicable
Update Note
Update Note:
Chest x-ray shows increased left basilar opacity per radiology report. Suspect this is atelectasis due to her large hiatal hernia. She has no respiratory complaints, afebrile, and without leukocytosis. Repeat rectal temp is 95.2. Patient also
evaluated by Dr. Peck. She remains well appearing on reassessment and continues to be asymptomatic. No indication for hospitalization at this time. She is scheduled to see her home nurse tomorrow. Advised close f/u with PCP and ED return
precautions discussed. Patient and in agreement with plan and patient was discharged in stable condition.
ED Attending Note
-
Portions of this chart may have been created with voice recognition software.� Occasional wrong word or��sound alike� substitutions may have occurred due to the inherent limitations of voice recognition software.
Discharge Plan
Departure
Patient Disposition: Home (Routine Discharge)
Date of Disposition: 12/09/24
Time of Disposition: 21:59
Patient with high blood pressure during this ER visit?: Yes
Discharge Problem:
Constipation, Body temperature low
Instructions: Constipation, Adult (DC)
Prescriptions:
No Action
docusate sodium [Colace] 100 mg Capsule
100 mg PO DAILYPRN PRN (Reason: cosntipation)
pravastatin 20 mg Tablet
20 mg PO HS
ropinirole 2 mg Tablet
2 mg PO HS
magnesium oxide 250 mg magnesium Tablet
500 mg PO DAILY
losartan 25 mg Tablet
25 mg PO DAILY Qty: 30 0RF
Rx Instructions:
NEW DOSE
acetaminophen 325 mg Tablet
650 mg PO Q6HPRN PRN (Reason: mild pain/ fever>100.5F) Qty: 0 0RF
nifedipine 30 mg Tablet Extended Release
30 mg PO DAILY Qty: 0 0RF
Referrals:
Cindy Camp MD [Family Provider] -
Activity Restrictions/Additional Instructions:
Take Miralax 1-2x daily as needed for constipation.
Please follow-up with your family doctor in 2-3 days. Return to the ER with any new or worsening symptoms including abdominal pain, fevers/chills, or a change in mental status.
Interventions
Interventions:
*Risk Screen - Suicide Last Done: 12/09/24 20:47
*General Assessment Last Done: 12/09/24 20:47
*Neglect/Abuse Screening Last Done: 12/09/24 20:48
*ED- Fall Risk Assessment Last Done: 12/09/24 20:47
*ED COVID-19 Vaccine History Last Done: 12/09/24 20:47
*Nursing Disposition Last Done: 12/09/24 22:27
NX-Acbnwh-Igcerfkkrh Assessment Last Done: 12/09/24 20:48
ED-Skin Assessment Last Done: 12/09/24 20:46
Discharge Date and Time
Discharge Date/Time: 12/09/24 22:27
Print Language: SYRIAC
== END 2024-12-09 22:27 | disposition home or self-care (01) ==
LOC: EMR 17:24
PROVIDERS: Emergency Medicine; EMERGENCY PHYSICIAN Emergency Medicine; FAMILY PHYSICIAN Internal Medicine
DX: K59.00 Constipation, unspecified (principal); R68.0 Hypothermia, not associated with low environmental temperature; E78.00 Pure hypercholesterolemia, unspecified; I10 Essential (primary) hypertension; K44.9 Diaphragmatic hernia without obstruction or gangrene; J96.10 Chronic respiratory failure, unspecified whether with hypoxia or hypercapnia; Z99.81 Dependence on supplemental oxygen
CPT/HCPCS: 99284; 71046; 80053; 85025

== ENCOUNTER → 2025-01-16 13:26 | Outpatient (REF) | payer OTHER, SELFPAY | LOC: HWRAD 13:26 | PROVIDERS: ATTENDING PHYSICIAN Nurse Practitioner Family | DX: R93.89 Abnormal findings on diagnostic imaging of other specified body structures (principal) | CPT/HCPCS: 71250 ==

== ENCOUNTER 2025-04-17 07:00 | Inpatient (IN) | payer OTHER, SELFPAY ==
[2025-03-29 11:10] LABS: Hematocrit 35.1 % (37.0-47.0); Hemoglobin 11.6 g/dL (12.0-16.0); Mean Corp Hgb Conc. 33.0 g/dL (33.0-37.0); Mean Corpuscular Volume 91.6 fL (81.0-99.0); Platelet Count 196 10^3/uL (130-400); Red Cell Dist. Width 15.4 % (11.5-14.5)
[2025-03-29 11:34] LABS: ALT (SGPT) 21 U/L (0-35); AST (SGOT) 29 U/L (14-36); Albumin 4.3 g/dl (3.5-5.0); Alkaline Phosphatase 145 U/L (38-126); Blood Urea Nitrogen 23 mg/dl (7-17); Calcium 9.7 mg/dl (8.4-10.2); Carbon Dioxide 26 mmol/L (22-30); Chloride 103 mmol/L (98-107); Glucose 79 mg/dl (70-99); Potassium 4.4 mmol/L (3.5-5.1); Sodium 138 mmol/L (135-145); Total Protein 8.0 g/dl (6.3-8.2); eGFR > 60.00
[2025-03-29 14:33] VITALS: BMI 23.8
--- NOTE | 2025-04-14 11:07 | HP.FOC2 ---
Focused History & Physical
Chief Complaint
HPI:
Chief Complaint: Symptomatic type IV paraesophageal hernia
HPI / Indication for Planned Procedure: Patient is an 79-year-old female recently referred for outpatient surgical evaluation after a hospitalization in November when she presented with a few week history of diminished appetite, lethargy and was found
to have pneumonia, bradycardia/hypotension and a large type IV paraesophageal hernia containing the entire stomach and portion of transverse colon but without radiographic evidence of acute obstruction or strangulation.
She has since recovered and is doing overall well with her medical health. She has generally been on a soft diet which she has been tolerating satisfactorily. In the setting of suspicion of her recent pneumonia potentially being related to
aspiration and the presence of a large type IV paraesophageal hernia I had lengthy discussions with the patient and her family members regarding operative as well as nonoperative management options. After our discussions patient and her family have
decided to proceed with operative correction of her paraesophageal hernia Understanding the higher than average risks associated with the correction due to the patient's medical comorbidities.
Relevant Past Medical History: Other (Hypertension, mild aortic stenosis, moderate to severe tricuspid valve regurgitation, restless legs, GERD, type IV paraesophageal hernia, severe DJD)
Relevant Social History: Negative
Relevant Family History: Negative
Relevant Past Surgical History: Positive for (Right ankle surgery, open left inguinal hernia repair with small bowel resection 2022)
Review of Systems
Review of Pertinent Systems: All Systems Negative
Medication
See Medication form for detailed medications: Yes
Medication List (including Herbals & OTC):
pravastatin 20 mg tablet 20 mg PO HS High Cholesterol 08/03/23
magnesium oxide 250 mg PO BID Electrolyte Repletion 11/26/24
ropinirole 2 mg tablet 2 mg PO NOON Neurological Condition 11/26/24
acetaminophen 325 mg tablet 650 mg (2 x 325 mg) PO Q6HPRN PRN mild pain/ fever>100.5F #0 tabs 12/02/24
losartan 25 mg tablet 25 mg PO DAILY #30 tabs 12/02/24
nifedipine 30 mg tablet,extended release 30 mg PO DAILY Blood pressure #0 tabs 12/02/24
Maalox 1 dose PO DAILY 04/08/25
estradiol 0.01% (0.1 mg/gram) vaginal cream 1 g vaginal QWEEK 04/08/25
furosemide 20 mg tablet 20 mg PO DAILY PRN fluid retention 04/08/25
ibuprofen 200 mg tablet (Advil) 400 mg PO Q6H PRN pain 04/08/25
oxyquinoline 0.025 %-sodium lauryl sulfate 0.01 % vaginal gel (Trimo-Vang Jelly) ea vaginal .EVERY 2 WEEKS 04/08/25
ropinirole 0.5 mg tablet 0.5 mg PO DAILY PRN restless leg syndrome 04/08/25
Medications Reviewed: Yes
Allergies and Reactions
Patient has Allergies: Yes
Noted Allergies and Reactions:
Allergy/AdvReac Type Severity Reaction Status Date / Time
paroxetine Allergy passed out Verified 04/08/25 10:30
Pertinent Physical Exam
All Other Systems: Negative
Head/Neck: Normal
Lungs: Normal
Heart: Normal
Abdomen: Normal
Extremities: Normal
Neurological: Normal
Diagnosis / Assessment
79-year-old female with symptomatic type IV paraesophageal hernia presenting today for scheduled operative correction
Plan / Procedure
Robotic assisted laparoscopic repair of paraesophageal hernia with possible mesh, possible fundoplication/gastropexy; EGD
Anesthesia/Sedation to be done by Anesthesia Provider: Yes
[2025-04-15] VITALS (17 sets, daily range): BP systolic 0–152; BP diastolic 62–83; BMI 23.8; BMI 24.7; BMI 23.2
--- NOTE | 2025-04-15 10:32 | W.SUR.PREOP ---
Pre-Operative Surgical Note
-
I have examined this patient prior to the performance of the scheduled procedure.
The patient's condition is unchanged from the time of the current History and
Physical and the patient is able to undergo the scheduled procedure.
--- NOTE | 2025-04-15 16:08 | W.IMMPOSTOP ---
Addendum entered and electronically signed by Almas Caputo MD 05/14/25 16:09:
#[id number]
Original Note:
Surgical Immed Post Op Note
-
Primary Surgeon: Almas Caputo MD
Assisting Surgeon: Sallie Peres PA-c
Pre-op Diagnosis: Type IV PEH
Post-op Diagnosis: Type IV PEH
Procedure Performed: RAL repair PEH with anterior gastropexy
Anesthesia Type: GETA + 0.25 %Marcaine w/ epi
Specimen / Cultures: none
Estimated Blood Loss: 40mL
Complications: none immediate
Operative Findings: Giant type IV PEH with entire stomach and large segment of transverse colon chronically incarcerated within PEH. Transverse colon manually reduced to start procedure. Entire hernia sack able to be reduced. Tilghman of hernia
noted to be as high as the level of the mike with visualization of left and right main stem bronchi as well. Left sided capnothorax as the esophagus was intimately associated with the parietal pleura proximally. Right/posterior vagus nerve
identified; left vagus nerve not clearly identified.
Posterior crural closure with 4 horizontal mattress 0-silk pledgeted stitches and 4 simple interrupted 0 silk
right anterior lateral crural closure with 2 simple interrupted 0 silk
left anterior lateral crural closure with single simple interrupted 0 silk
Anterior gastropexy - 2 x 0 silk horizontal mattress from fundus to left lateral phyllis/diaphragm to recreate angle of His; 5 x 0 silk for anterior pexy to left costal margin along greater curvature from body of stomach to approximately junction of
body/antrum at about level across from incisura angularis
[2025-04-15] MEDS: NSS 1000 IV (18:04)
[2025-04-15] MEDS: LOVENOX 40 MG SC (18:06)
[2025-04-15] MEDS: ZOFRAN 4 MG IV ×2 (18:07→23:57)
--- NOTE | 2025-04-15 19:43 | PTCARENOTE ---
Received pt from [facility] around 1730. Pt awake, alert, pleasant, denies pain. Sats 89-90 on room air, improved to high 90s on 1lnc. Pt denies sob, does c/o mild nausea, but tolerating clears. Eating slowly. Family in to see pt. Admission
completed. Otherwise please see assessment.
[2025-04-15] MEDS: MAGNESIUM OXIDE 250 MG PO (20:00)
[2025-04-15] MEDS: REQUIP 0.5 MG PO (20:00)
--- NOTE | 2025-04-15 23:36 | PTCARENOTE ---
Caring for pt overnight. aaox3, pleasant. Family at bedside. NSR, remains 1LNC. 09/21 pain in abdomen. SCDs. VSS. RADHA drain in place, draining slowly. 5 lap sites present in lower abdomen, surgical glue intact. Tolerated clear liquid diet for dinner.
No nausea. Q6 zofran. Will continue to monitor.
[2025-04-16] VITALS (17 sets, daily range): BP systolic 113–145; BP diastolic 59–83; PULSE 68; O2SAT 95–96
[2025-04-16] MEDS: ZOFRAN 4 MG IV ×2 (05:25→14:02)
[2025-04-16 05:42] LABS: Hematocrit 34.3 % (37.0-47.0); Hemoglobin 11.2 g/dL (12.0-16.0); Mean Corp Hgb Conc. 32.7 g/dL (33.0-37.0); Mean Corpuscular Volume 92.7 fL (81.0-99.0); Platelet Count 156 10^3/uL (130-400); Red Cell Dist. Width 15.5 % (11.5-14.5)
[2025-04-16 06:19] LABS: Blood Urea Nitrogen 27 mg/dl (7-17); Calcium 9.1 mg/dl (8.4-10.2); Carbon Dioxide 27 mmol/L (22-30); Chloride 108 mmol/L (98-107); Estimated Creatinine Clearance 46 ml/min; Glucose 106 mg/dl (70-99); Potassium 5.4 mmol/L (3.5-5.1); Sodium 140 mmol/L (135-145); eGFR > 60.00
--- NOTE | 2025-04-16 07:09 | W.PN.GS2 ---
Today's Communication / Plan
-
`
Assessment / Plan
-
Assessment: 79 y/o female POD #1 s/p robo assisted lap repair type IV PEH with gastropexy;EDG
h/o Hypertension, mild aortic stenosis, moderate to severe tricuspid valve regurgitation, restless legs, severe DJD with scoliosis
AFVSS
did well overnight
mild hyperkalemia noted on AM labs
RADHA 130ml since OR a bit sanguinous but appearance more so of old blood than active bleeding; hgb at baseline 11.2 from 11.6 preop (h/o nornocytic anemia)
good Urine output
Plan: multimodal pain control options but will hold toradol d/t consistency of RADHA for now
OOBTC today, safe to ambulate with assistance; consulted PT/OT
clear liquid diet and home PO meds (for h/o HTN and restless leg)
renew IVF
remove rodriguez catheter
monitor RADHA outputs
repeat K this afternoon
lovenox/scds/ambulation for VTEp
Subjective Data
-
Date of Service: April 16, 2025
pt seen and examined
at bedside
reports minimal post op pain in left upper abdomen only
no nausea, no vomiting
sunita some clears
Objective Data
-
Intake and Output
04/15/25 04/16/25 04/17/25
06:59 06:59 06:59
Intake Total 940 / 940
Output Total 1255 / 1255
Balance -315 / -315
Intake:
Oral fluids 120 / 120
IV fluids (Total) 820 / 820
Normosal 100 / 100
Output:
Drain Output (Total) 130 / 130
Left Upper Abdomen Elia- 130 / 130
Rouse
Urine, Rodriguez 1125 / 1125
Vital Signs
Temp Pulse Resp BP Pulse Ox
97.5 F 62 21 117/66 96
04/16/25 03:14 04/16/25 06:00 04/16/25 06:00 04/16/25 06:01 04/16/25 04:00
Lab Results
04/16/25 05:25
04/16/25 05:25
Calcium 9.1 mg/dl (8.4-10.2) 04/16/25 05:25
Total Bilirubin 0.7 mg/dl (0.2-1.3) 03/29/25 10:26
AST 29 U/L (14-36) 03/29/25 10:26
ALT 21 U/L (0-35) 03/29/25 10:26
Alkaline Phosphatase 145 U/L (38-126) H 03/29/25 10:26
Total Protein 8.0 g/dl (6.3-8.2) 03/29/25 10:26
Albumin 4.3 g/dl (3.5-5.0) 03/29/25 10:26
Physical Exam
-
NAD AAOx3
ABD: soft, minimal ttp at incision sites, incisions with glue dressings
RADHA with sanguinous fluid in bulb
Patient has a rodriguez catheter: Yes
[2025-04-16] MEDS: COZAAR PO (08:35)
[2025-04-16] MEDS: PROCARDIA XL (EXTENDED RELEASE) PO (08:37)
[2025-04-16] MEDS: NSS (PRESERVATIVE FREE) 10 ML IV (08:38)
[2025-04-16] MEDS: PROTONIX IV 40 MG IV (08:39)
[2025-04-16] MEDS: NSS 1000 IV (10:52)
[2025-04-16] MEDS: TYLENOL 500 MG PO ×2 (10:56→19:34)
[2025-04-16] MEDS: MAGNESIUM OXIDE 250 MG PO ×2 (11:42→19:35)
[2025-04-16] MEDS: REQUIP 2 MG PO (11:43)
--- NOTE | 2025-04-16 12:57 | CM ---
Addendum entered by Zuly Monreal 04/16/25 14:04:
VN recs by therapy- referral made to VN liaison and pending
Original Note:
CM met with with pt, spouse and 2 children- pt has 5 very support children
Pt and spouse reside in a 2[address] with 2 SANDRA
She typically sleeps on the 1st floor in a vibrating reclining chair, she has a stairglide to the 2nd floor
Pt is indep with ambulation and bathing tasks with use of a WW
Pt has a shower chair, grab bars and RTS
Pt has hx with VN and home O2 through [employer]- home O2 set up has since been returned
Pt has upcoming appt for intake for Palliative Care
[facility] is PBM
PCP- Gilles Hameed
Rx- Wade Yeboah
PT/OT pending
Pt with john drain
Pt with [facility] admission order
If VN needs on dc, [facility] is provider choice
Discharge Disposition- anticipate home with VN, watch for possible drain needs
[2025-04-16] MEDS: DILAUDID 0.25 MG IV ×2 (14:02→17:41)
--- NOTE | 2025-04-16 14:41 | VNURNOTE ---
Home Health Liaison met with patient and daughter at bedside to discuss [facility] nurse/therapy, visits, schedule and homebound status. Patient is agreeable and understands that visits at home will be 2-3 x per week to assess and teach medical
management. She recently had [facility] in November 2024. All are aware that [facility] will contact them for start of care in 1-2 days after discharge from .
[facility] referral completed in [facility].
--- NOTE | 2025-04-16 15:10 | PTCARENOTE ---
Patient is out of bed to chair, complaining of left upper abdominal pain, moderate. Patient participated in physical therapy. Was able to urinate, after rodriguez removal, in toilet with assist of one staff member. Post void residual 50ml. RADHA drain
monitored. Pain treated as per doctors orders with relief. Family at bedside.
[2025-04-16 17:07] LABS: Potassium 4.8 mmol/L (3.5-5.1)
[2025-04-16] MEDS: PRAVACHOL 20 MG PO (17:41)
[2025-04-17] VITALS (7 sets, daily range): BP systolic 123–149; BP diastolic 62–101; BMI 23.7
[2025-04-17] MEDS: NSS 1000 IV (02:07)
[2025-04-17 04:28] LABS: Hematocrit 35.7 % (37.0-47.0); Hemoglobin 11.8 g/dL (12.0-16.0); Mean Corp Hgb Conc. 33.1 g/dL (33.0-37.0); Mean Corpuscular Volume 93.2 fL (81.0-99.0); Platelet Count 150 10^3/uL (130-400); Red Cell Dist. Width 15.7 % (11.5-14.5)
[2025-04-17 04:45] LABS: Blood Urea Nitrogen 25 mg/dl (7-17); Calcium 9.2 mg/dl (8.4-10.2); Carbon Dioxide 25 mmol/L (22-30); Chloride 108 mmol/L (98-107); Estimated Creatinine Clearance 46 ml/min; Glucose 84 mg/dl (70-99); Potassium 4.5 mmol/L (3.5-5.1); Sodium 140 mmol/L (135-145); eGFR > 60.00
--- NOTE | 2025-04-17 05:33 | PTCARENOTE ---
No acute events overnight. Son stayed the night with patient. PRN tylenol given for pain and was effective. PRN dilaudid offered and patient denied. Site care completed to left RADHA drain- moderate amount of serosanguinous drainage on drain sponge. 60
ml output overnight in RADHA. No nausea or vomiting. Will continue to monitor.
--- NOTE | 2025-04-17 07:18 | W.PN.GS2 ---
Today's Communication / Plan
-
`
Assessment / Plan
-
Assessment: 79 y/o female POD #2 s/p robo assisted lap repair type IV PEH with gastropexy;EDG
h/o Hypertension, mild aortic stenosis, moderate to severe tricuspid valve regurgitation, restless legs, severe DJD with scoliosis
AFVSS
mild hyperkalemia-resolved
RADHA output now mostly SSF; nonbloody and expected quantity
Plan: stable for transfer to med/surg bed
multimodal pain control options; okay to resume toradol PRN as well
increase OOBTC, ambulate with assistance; PT/OT
advance to full liquid diet and home PO meds (for h/o HTN and restless leg)
stop IVF; single dose of lasix today 20mg PO
monitor RADHA outputs
protonix for GIp
lovenox/scds/ambulation for VTEp
Subjective Data
-
Date of Service: April 17, 2025
pt seen and examined
son and at bedside
post op pain feeling a bit better this AM
no nausea, not much appetite yesterday but feels some hunger this AM
denies nausea
no flatus
no SOB/no CP
participated in PT/OT yesterday
Objective Data
-
Intake and Output
04/16/25 04/17/25 04/18/25
06:59 06:59 06:59
Intake Total 940 / 940 1800 / 1800
Output Total 1255 / 1255 480 / 480
Balance -315 / -315 1320 / 1320
Intake:
Oral fluids 120 / 120 360 / 360
IV fluids (Total) 820 / 820 1440 / 1440
Normosal 100 / 100
Output:
Drain Output (Total) 130 / 130 255 / 255
Left Upper Abdomen Elia- 130 / 130 255 / 255
Rouse
Urine, Rodriguez 1125 / 1125 75 / 75
Urine, Voided 150 / 150
Other:
How many times incontinent 1
SMALL amount urine
How many times incontinent 1
MODERATE amount urine
Vital Signs
Temp Pulse Resp BP Pulse Ox
97.6 F 76 24 136/99 92
04/17/25 03:00 04/17/25 06:00 04/17/25 06:00 04/17/25 06:00 04/17/25 06:00
Lab Results
04/17/25 03:59
04/17/25 03:59
Calcium 9.2 mg/dl (8.4-10.2) 04/17/25 03:59
Total Bilirubin 0.7 mg/dl (0.2-1.3) 03/29/25 10:26
AST 29 U/L (14-36) 03/29/25 10:26
ALT 21 U/L (0-35) 03/29/25 10:26
Alkaline Phosphatase 145 U/L (38-126) H 03/29/25 10:26
Total Protein 8.0 g/dl (6.3-8.2) 03/29/25 10:26
Albumin 4.3 g/dl (3.5-5.0) 03/29/25 10:26
Physical Exam
-
NAD AAOx3
ABD: softly distended, minimal incisional tenderness
incisions with glue dressings, no erythema, no drainage
RADHA with SSF - mostly serous today
Patient has a rodriguez catheter: No
--- NOTE | 2025-04-17 07:47 | PTCARENOTE ---
on walking rounds pt is AAOx3 with family at bedside. Seen by DR Caputo . Pt on Ra no co of pain . Pt is down grade to med surg.
[2025-04-17] MEDS: NSS (PRESERVATIVE FREE) 10 ML IV (08:05)
[2025-04-17] MEDS: PROTONIX IV 40 MG IV (08:05)
[2025-04-17] MEDS: ZOFRAN 4 MG IV ×2 (08:09→17:42)
[2025-04-17] MEDS: PROCARDIA XL (EXTENDED RELEASE) 30 MG PO (08:13)
[2025-04-17] MEDS: COLACE 100 MG PO ×2 (08:13→19:51)
[2025-04-17] MEDS: LASIX 20 MG PO (08:13)
[2025-04-17] MEDS: COZAAR 25 MG PO (08:14)
[2025-04-17] MEDS: MAGNESIUM OXIDE 250 MG PO ×2 (08:14→19:51)
[2025-04-17] MEDS: REQUIP 0.5 MG PO (09:19)
[2025-04-17] MEDS: REQUIP 2 MG PO (12:41)
--- NOTE | 2025-04-17 12:45 | PTCARENOTE ---
expressing concern that has a poor appetite and is drinkig alot and has no iv fluid runing. Will TT Dr Caputo also concerned that pt is walking more.
[2025-04-17] MEDS: TYLENOL 500 MG PO (12:55)
--- NOTE | 2025-04-17 13:27 | PTCARENOTE ---
Pt walked to with RW to br and voided. walked with RWW out in monique and back to bed. Pt may have a cracker given tita cracker. Asked pt to take asip ogf water every hour and to use IS
[2025-04-17] MEDS: TORADOL 10 MG IV (16:40)
--- NOTE | 2025-04-17 16:57 | PTCARENOTE ---
Report to Arianne on , pt given Torodol for pain 11/19 before she lest. Pt walked with RW to stretcher
--- NOTE | 2025-04-17 17:14 | PTCARENOTE ---
Patient transferred to [address] [place] [address] from IMU.Patient is post op day 2 hernia repair.She was able to ambulate easily with assist of 1 to her bed from the stretcher.The patient is alert and oriented and able to make her needs known.family at the bedside
and very overprotective.
[2025-04-17] MEDS: PRAVACHOL PO (17:44)
[2025-04-17] MEDS: LOVENOX 40 MG SC (17:44)
--- NOTE | 2025-04-17 17:45 | PTCARENOTE ---
Patient vomited a moderate amount of bile shortly after arriving to [address] [place] [address].It was reported to me that she had vomited earlier in the day.Zofran given.Will continue to observe.
[2025-04-18] VITALS (10 sets, daily range): BP systolic 83–130; BP diastolic 52–78; PULSE 2–80; O2SAT 97–98; BMI 23.3; BMI 23.7
[2025-04-18] MEDS: TORADOL 10 MG IV (01:47)
[2025-04-18] MEDS: DILAUDID 0.25 MG IV (03:33)
[2025-04-18 07:59] LABS: Blood Urea Nitrogen 36 mg/dl (7-17); Calcium 9.3 mg/dl (8.4-10.2); Carbon Dioxide 27 mmol/L (22-30); Chloride 103 mmol/L (98-107); Estimated Creatinine Clearance 26 ml/min; Glucose 126 mg/dl (70-99); Potassium 5.3 mmol/L (3.5-5.1); Sodium 137 mmol/L (135-145); eGFR 37.80
[2025-04-18] MEDS: COZAAR PO (09:03)
[2025-04-18] MEDS: MAGNESIUM OXIDE 250 MG PO ×2 (09:03→20:39)
[2025-04-18] MEDS: COLACE 100 MG PO (09:04)
[2025-04-18] MEDS: PROTONIX IV 40 MG IV (09:05)
[2025-04-18] MEDS: PROCARDIA XL (EXTENDED RELEASE) PO (09:05)
[2025-04-18] MEDS: NSS (PRESERVATIVE FREE) 10 ML IV (09:05)
[2025-04-18] MEDS: 0.45%NACL 1000 IV ×2 (09:58→23:30)
--- NOTE | 2025-04-18 10:05 | CM ---
Reviewed the chart notes and spoke with the patient and her family at the bedside. Patient currently on supplement O2. PT recommendation is home health. Family confirmed home with VN services. CM continues to be available to patient/family
and is monitoring medical plan for needs at discharge.
Plan: Discharge to home when medically stable with VN services. If unable to wean O2, home O2 evaluation will be needed.
--- NOTE | 2025-04-18 10:48 | W.PN.GS2 ---
Today's Communication / Plan
-
`
Assessment / Plan
-
Assessment: 79 y/o female POD #2 s/p robo assisted lap repair type IV PEH with gastropexy;EDG
h/o Hypertension, mild aortic stenosis, moderate to severe tricuspid valve regurgitation, restless legs, severe DJD with scoliosis
AFVSS
mild hyperkalemia
Shortness of breath
Ileus
Elevated BUN and creatinine this a.m.
RADHA output now mostly SSF; nonbloody and expected quantity
Plan: Okay for full liquids for comfort but advised not to push p.o. intake
Dulcolax suppository x 1 for assistance with return of GI recovery
Chest x-ray
Resume maintenance IV fluids due reduced p.o. intake and elevation BUN/creatinine
Consulted cardiology for assistance with postoperative care
multimodal pain control options; stop Toradol with elevation in creatinine
OOBTC, ambulate with assistance; PT/OT
monitor RADHA outputs
protonix for GIp
lovenox/scds/ambulation for VTEp
Subjective Data
-
Date of Service: April 18, 2025
Patient seen and examined. is at bedside.
Reportedly had some pain overnight and shortness of breath which had been alleviated after Dilaudid administration.
Questionable episode of emesis after transfer to floors from IMU sounds like was more clearish fluid and some of her full liquids that she just was consuming rather than bilious emesis or gastric contents
Patient denies nausea at this a.m.
She still has not passed flatus or had bowel movement since surgery
Objective Data
-
Intake and Output
04/17/25 04/18/25 04/19/25
06:59 06:59 06:59
Intake Total 1800 / 1800 480 / 480
Output Total 480 / 480 120 / 120 90 / 90
Balance 1320 / 1320 360 / 360 -90 / -90
Intake:
Oral fluids 360 / 360 480 / 480
IV fluids (Total) 1440 / 1440
Output:
Drain Output (Total) 255 / 255 120 / 120 90 / 90
Left Upper Abdomen Elia- 255 / 255 120 / 120 90 / 90
Rouse
Urine, Louis 75 / 75
Urine, Voided 150 / 150
Other:
Number of approximated SMALL 1
amounts of urine
Number of approximated LARGE 1
amounts of urine
How many times incontinent 1
SMALL amount urine
How many times incontinent 1
MODERATE amount urine
How many times incontinent 1
SATURATED amount urine
Vital Signs
Temp Pulse Resp BP Pulse Ox
97.5 F 89 17 118/78 97
04/18/25 08:00 04/18/25 08:00 04/18/25 08:00 04/18/25 09:05 04/18/25 08:00
Lab Results
04/17/25 03:59
04/18/25 06:31
Calcium 9.3 mg/dl (8.4-10.2) 04/18/25 06:31
Total Bilirubin 0.7 mg/dl (0.2-1.3) 03/29/25 10:26
AST 29 U/L (14-36) 03/29/25 10:26
ALT 21 U/L (0-35) 03/29/25 10:26
Alkaline Phosphatase 145 U/L (38-126) H 03/29/25 10:26
Total Protein 8.0 g/dl (6.3-8.2) 03/29/25 10:26
Albumin 4.3 g/dl (3.5-5.0) 03/29/25 10:26
Physical Exam
-
NAD AAO x 3
ABD remains distended and tympanitic. Denies tenderness.
Surgical sites with glue dressings
Surgical RADHA with serosanguineous fluid
--- NOTE | 2025-04-18 12:08 | CON.CAR ---
Addendum entered and electronically signed by Nickolas Herring MD 04/18/25 15:12:
I saw and examined the patient.
The NUTRITIONALIST's note was reviewed and I agree with the note.
Comment: 79 y/o female with moderate to severe TR, mild , hypertension, dyslipidemia, large paraesophageal hernia, and severe DJD is s/p laparoscopic paraesophageal hernia repair (Dr. Caputo) 04/16/25. Post-op, she has had some SOB, so PRN lasix
was given. However, now creatinine is elevated and she is on IVF since low PO intake post-op. She doesn't c/o of sob. However, she clearly appears dyspneic. She has decreased b/s b/l. No JVP, rrr, trace edema b/l. CXR with poor inspiratory effort.
I suspect bibasilar atelectasis as the cause of her acute hypoxic resp failure. She has seen pulmonary in the past and this was attributed to her massive periesophageal hiatal hernia, however this has been reduced surgically. Unclear why this has
not improved. Encouraged ICS. For now continue oxygen. She is not volume overloaded. She has no new lower extremity edema or sinus tachycardia to suggest PE and she did receive prophylactic Lovenox. However, if she does not improve by tomorrow
would recommend pulmonary evaluation.
Original Note:
Consultation
Consultation Request
Date/Time Consultation Requested: 04/18/25 1046
Date/Time Consultation Performed: 04/18/25 1209
Requesting Provider: Dr. Caputo
Performing Provider: More STUART for Dr. Herring
Reason for Consultation: hx moderate to severe TR
Medical History
-
Chief Complaint: paraesophageal hernia surgery
History of Present Illness:
79 y/o female with moderate to severe TR, mild , hypertension, dyslipidemia, large paraesophageal hernia, and severe DJD is s/p laparoscopic paraesophageal hernia repair (Dr. Caputo) 04/16/25. Post-op, she has had some SOB, so PRN lasix was given.
However, now creatinine is elevated and she is on IVF since low PO intake post-op.
Past Medical History
Past Medical History: HTN, Hypercholesterolemia, Valvular Disease and Other (as above)
Social History
Personal:
Family History
Family History: Reviewed & Not Pertinent
Allergies / Home Medications
Allergy/AdvReac Type Severity Reaction Status Date / Time
hydrochlorothiazide Allergy Swelling Verified 04/15/25 10:14
paroxetine Allergy passed out Verified 04/15/25 10:14
�Medication �Instructions �Recorded �Confirmed �Type
pravastatin 20 mg tablet 20 mg PO HS High Cholesterol 08/03/23 04/15/25 History
magnesium oxide 250 mg PO BID Electrolyte Repletion 11/26/24 04/15/25 History
ropinirole 2 mg tablet 2 mg PO NOON Neurological Condition 11/26/24 04/08/25 History
acetaminophen 325 mg tablet 650 mg (2 x 325 mg) PO Q6HPRN PRN 12/02/24 04/08/25 Rx
mild pain/ fever>100.5F #0 tabs
losartan 25 mg tablet 25 mg PO DAILY #30 tabs 12/02/24 04/15/25 Rx
nifedipine 30 mg tablet,extended 30 mg PO DAILY Blood pressure #0 12/02/24 04/15/25 Rx
release tabs
Maalox 1 dose PO DAILY Gastrointestinal 04/08/25 04/15/25 History
Issue
estradiol 0.01% (0.1 mg/gram) 1 g vaginal QWEEK Hormonal Agent 04/08/25 04/08/25 History
vaginal cream
furosemide 20 mg tablet 20 mg PO DAILY PRN fluid retention 04/08/25 04/15/25 History
ibuprofen 200 mg tablet (Advil) 400 mg PO Q6H PRN pain 04/08/25 04/08/25 History
oxyquinoline 0.025 %-sodium lauryl ea vaginal .EVERY 2 WEEKS Itch and 04/08/25 History
sulfate 0.01 % vaginal gel odor control
(Trimo-Vang Jelly)
ropinirole 0.5 mg tablet 0.5 mg PO DAILY PRN restless leg 04/08/25 04/15/25 History
syndrome
Review of Systems
-
History Source: Patient
All other systems: Negative unless noted
Respiratory: Trouble Breathing
Abdomen/GI: Abdominal Pain (resolved)
Physical Exam
Vital Signs
Temp Pulse Resp BP Pulse Ox
97.5 F 89 17 118/78 97
04/18/25 08:00 04/18/25 08:00 04/18/25 08:00 04/18/25 09:05 04/18/25 08:00
Lab Results
04/17/25 03:59
04/18/25 06:31
Physical Exam
General: Well Developed, Well Nourished and No Apparent Distress
HEENT: Normocephalic and Anicteric
Respiratory: Other (diminished to b/l bases; On O2 by NC)
Cardiac: Regular Rhythm and Murmur (II/ diastolic murmur)
Skin: Warm and Dry
Neuro: AO x 3
Psych: Calm
Impression / Plan
-
Paraesophageal hernia s/p laparoscopic repair:
-post-op management per surgery
-not having a lot of pain today
-on Lovenox for DVT prophylaxis
SOB:
-on O2 by NC
-CXR showed extremely low lung volumes. Likely tiny bilateral pleural effusions. Obtain EKG.
-does not appear volume overloaded to my assessment
-encourage IS
Moderate-severe TR:
-monitor volume status post-op
-weight as OP at cardiology office visit was 61.69 kg, currently below that and BUN/creatinine elevated and poor PO intake. IV fluids added. Monitor response to this.
HTN:
-stable
-continue nifedipine
Data Reviewed
-
EKG: Tracing Personally Visualized and interpreted (04/04/25: EKG NSR. Ordered repeat EKG today)
Radiology: Report Reviewed by me (CXR: Extremely low lung volumes. Likely tiny bilateral pleural effusions. Known large hiatal hernia.)
Medical Tests (Nuc Med, Echo etc): Report Reviewed by me (echo 11/27/24: LV ejection fraction is 65-70%. Moderately dilated left atrium. Moderately dilated right atrium. Mild aortic stenosis; peak/mean gradients 14/8 mmHg, calculated SHANNAN 1.7 cm2.
Moderate to severe tricuspid regurgitation. Estimated pulmonary artery pressure of 40-45 mmHg. )
Labs: Labs Reviewed by me
[2025-04-18] MEDS: DULCOLAX 10 MG RECTAL (12:20)
[2025-04-18] MEDS: REQUIP 2 MG PO (12:22)
[2025-04-18] MEDS: PRAVACHOL 20 MG PO (18:11)
[2025-04-18] MEDS: LOVENOX 40 MG SC (18:12)
[2025-04-18] MEDS: COLACE PO (20:38)
--- NOTE | 2025-04-18 21:03 | W.PN.UPDATE ---
Update Note
Progress Note Update
Patient is complaining of sob. Hypothermic with rectal temp 95.3, increases O2 demand during the night, bp 11/65, hr 72, RR 16, SPO2 93% on 3 L of O2.
-Diminished lung on exam, patient denies chest pain.
-vbg, duo nebs, cbc, bmp, mag. covid and flu.
-Will repeat chest x-ray.
Covid/Flu (Neg)
Patient started to be gradually hypotensive while she receiving IVF-->Levophed started.
Vbg ( PH 7.23, pco2 62, po2 69, Hco3).
Chest x-ray result shows There are increased bibasilar opacities which may represent bilateral pleural effusions with adjacent atelectasis or pneumonia.
Bipap ordered and will repeat vbg in am.
Will start Zosyn Q 6hrs.
Will D/C IVF, lasix 20 mg IV
Rocio lisa.
bladder scan/ rodriguez in for urinary retention
Vbg result noted in am, Bipap setting adjusted.
Son at bedside and updated
Surgery updated and new recommendations received of echo, ekg and troponin.
[2025-04-18] MEDS: DUONEB 3 ML INH (21:12)
[2025-04-18 21:34] LABS: Hematocrit 34.6 % (37.0-47.0); Hemoglobin 11.2 g/dL (12.0-16.0); Mean Corp Hgb Conc. 32.4 g/dL (33.0-37.0); Mean Corpuscular Volume 94.5 fL (81.0-99.0); Platelet Count 145 10^3/uL (130-400); Red Cell Dist. Width 15.5 % (11.5-14.5)
[2025-04-18 21:35] LABS: Venous Blood Gas B.E. -2.5 mmol/L (-4 to +4); Venous Blood Gas O2 Sat % 94.6 %
[2025-04-18 21:58] LABS: COVID-19 Antigen Negative (Negative)
[2025-04-18 22:05] LABS: Blood Urea Nitrogen 43 mg/dl (7-17); Calcium 8.9 mg/dl (8.4-10.2); Carbon Dioxide 22 mmol/L (22-30); Estimated Creatinine Clearance 28 ml/min; Glucose 138 mg/dl (70-99); Magnesium 2.3 mg/dl (1.6-2.3); eGFR 41.31
[2025-04-18 22:13] LABS: Chloride 107 mmol/L (98-107); Potassium 4.5 mmol/L (3.5-5.1); Sodium 136 mmol/L (135-145)
--- NOTE | 2025-04-18 22:30 | PTCARENOTE ---
Addendum entered by Reyna Kirby RN 04/19/25 01:53:
Received pt at 22:50
Original Note:
received pt at 22:20. pt on BIPAP, able to follow commands, son in room at bedside. 0.45%NaCl @80ml/hr through R FA. CXR done prior to arrival. Covid/flu negative. Rectal temp 95.6, charisse hugger on. BP 88/76 on arrival. DIRECTOR EXTERNAL COMMUNICATIONS notified. Orders placed for
levo.
--- NOTE | 2025-04-18 22:30 | PTCARENOTE ---
20:45: [place] texted House Provider David Franco that pt's rectal temp was 95.3. Asked for orders for charisse hugger. Also informed provider that pt felt SOB, lung sounds very diminished, increased oxygen from 2L NC to 3L NC, SaO2 93%.
21:00: RT came to give duoneb treatment. Labs drawn, COVID/Flu swabs sent.
21:30: Portable CXR completed.
22:30: Transferred to IMU with respiratory.
[2025-04-18] MEDS: ZOSYN 50 IV (23:30)
[2025-04-18] MEDS: LEVOPHED 250 IV (23:45)
--- NOTE | 2025-04-18 23:50 | PTCARENOTE ---
IV zosyn ordered and hung. Levo hung at 23:45 to keep MAP >65
[2025-04-19] VITALS (77 sets, daily range): BP systolic 88–142; BP diastolic 45–116; PULSE 2–84
[2025-04-19] MEDS: LASIX 20 MG IV (02:18)
--- NOTE | 2025-04-19 03:10 | PTCARENOTE ---
IVF dc per MISSION MANAGER, 20mg IV lasix given, orders in for bladder scan/straight cath protocol. No urine output since arrival, bladder scan showed 369ml. MISSION MANAGER notified. Orders in to place rodriguez for I&O monitoring. Rodriguez placed at 0310
--- NOTE | 2025-04-19 03:15 | PTCARENOTE ---
Pt reached goal temp of 97. Rocio hugger off. Current rectal temp 97.5
[2025-04-19 04:21] LABS: Venous Blood Gas B.E. 0.5 mmol/L (-4 to +4); Venous Blood Gas O2 Sat % 99.1 %; Venous Blood Gas O2 Therapy BIPAP
[2025-04-19 04:32] LABS: Hematocrit 32.9 % (37.0-47.0); Hemoglobin 10.7 g/dL (12.0-16.0); Mean Corp Hgb Conc. 32.5 g/dL (33.0-37.0); Mean Corpuscular Volume 93.7 fL (81.0-99.0); Platelet Count 171 10^3/uL (130-400); Red Cell Dist. Width 15.2 % (11.5-14.5)
[2025-04-19 04:52] LABS: Blood Urea Nitrogen 40 mg/dl (7-17); Calcium 8.4 mg/dl (8.4-10.2); Carbon Dioxide 28 mmol/L (22-30); Chloride 103 mmol/L (98-107); Estimated Creatinine Clearance 36 ml/min; Glucose 118 mg/dl (70-99); Potassium 4.6 mmol/L (3.5-5.1); Sodium 136 mmol/L (135-145); eGFR 56.60
[2025-04-19] MEDS: ZOSYN 50 IV (05:24)
[2025-04-19 06:22] LABS: D-Dimer 1.91 ug/mlFEU (0.00-0.50)
[2025-04-19 08:38] LABS: Troponin I 0.019 ng/ml
[2025-04-19] MEDS: PROTONIX IV 40 MG IV (09:35)
[2025-04-19] MEDS: NSS (PRESERVATIVE FREE) 10 ML IV (09:35)
[2025-04-19] MEDS: MAGNESIUM OXIDE 250 MG PO (09:36)
[2025-04-19] MEDS: COLACE PO ×2 (10:13→20:46)
--- NOTE | 2025-04-19 10:20 | W.PN.GS2 ---
Addendum entered and electronically signed by Almas Caputo MD 04/19/25 15:02:
Patient seen and examined this a.m. with surgical SOFTBALL COACH. Agree with documented progress note.
Overnight events reviewed.
Discussed with IMU nursing staff
Discussed with pulmonary
Patient's and son at bedside. She developed progressive shortness of breath yesterday with her abdominal distention. Bowel function started yesterday with numerous large loose/liquid bowel movements. Hypotension overnight prompting
transfer back to IMU and initiation of BiPAP for hypoxia and hypercapnia.
This a.m. she appears much improved and back order clerk to her previous baseline the other day. Patient denies any pain. She states that she feels much better since having numerous bowel movements. Denies shortness of breath.
AF VSS
Currently on 2-3 mcg of Levophed
Abdomen much softer than it has been in the past 2 days. Nontender. Incision sites with glue dressings.
RADHA with serosanguineous fluid
Studies and testing reviewed.
Assessment/plan: Hypotension overnight was likely reflective of hypovolemia -improving now with IV fluids
No clear infectious source, pneumonia doubtful more likely atelectasis with normal white blood cell count and no fevers. Discontinue Zosyn.
Hypothermia now resolved.
Ileus also improving.
Continue Rodriguez for monitoring I's and O's
Clear liquids and speech therapy evaluation
Pulmonary and cardiology assistance with postoperative care greatly appreciated
Original Note:
Today's Communication / Plan
-
wean pressors
pulmonary eval
clears as tolerated
Assessment / Plan
-
Assessment: 79 y/o female POD #3 s/p robo assisted lap repair type IV PEH with gastropexy;EDG
h/o Hypertension, mild aortic stenosis, moderate to severe tricuspid valve regurgitation, restless legs, severe DJD with scoliosis
Hypotensive overnight, on Levophed at 3mcg/min which is being weaned down
Hypoxia acutely worsened overnight requiring BiPap now off and on 2L NC
Hypothermia resolved
Ileus improved/resolving
rodriguez placed for urinary retention early this am
No leukocytosis. Stable h/h.
Cr normalized
RADHA output now mostly SSF; nonbloody and expected quantity
Plan: Okay for clear liquids for comfort but advised not to push p.o. intake
Resume IV fluids due to reduced p.o. intake and elevation BUN/creatinine ratio
Appreciate cardiology following
Consult placed to pulmonology to assist with post operative care
TANNING CONSULTANT consulted to follow, will reconsult pt/ot once weaned off pressors
multimodal pain control options; stopped Toradol d/t elevation in creatinine with improvement
monitor RADHA outputs
follow off ABX
c/w rodriguez
protonix for GIp
lovenox/scds/ambulation for VTEp
Subjective Data
-
Date of Service: April 19, 2025
Pt seen and examined at bedside with Dr. Caputo with sons present. She denies n/v since yesterday. She is alert and participating in care although tired. Notes she passed multiple loose stools 'like a cork came out'. She denies pain. Some SOB
persists with activity/speech.
Objective Data
-
Intake and Output
04/18/25 04/19/25 04/20/25
06:59 06:59 06:59
Intake Total 480 / 480 1518 / 1518
Output Total 120 / 120 1430 / 1430 425 / 425
Balance 360 / 360 88 / 88 -425 / -425
Intake:
Oral fluids 480 / 480 298 / 298
IV fluids (Total) 1120 / 1120
IV piggybacks 100 / 100
Output:
Drain Output (Total) 120 / 120 130 / 130
Left Upper Abdomen Elia- 120 / 120 130 / 130
Rouse
Urine, Rodriguez 1300 / 1300 425 / 425
Other:
Number of approximated SMALL 1
amounts of urine
Number of approximated LARGE 1
amounts of urine
How many times incontinent 1
SATURATED amount urine
Vital Signs
Temp Pulse Resp BP Pulse Ox
98.5 F 76 19 129/61 98
04/19/25 07:00 04/19/25 08:00 04/19/25 08:00 04/19/25 08:00 04/19/25 08:00
Lab Results
04/19/25 04:14
04/19/25 04:14
Calcium 8.4 mg/dl (8.4-10.2) 04/19/25 04:14
Magnesium 2.3 mg/dl (1.6-2.3) 04/18/25 21:27
Total Bilirubin 0.7 mg/dl (0.2-1.3) 03/29/25 10:26
AST 29 U/L (14-36) 03/29/25 10:26
ALT 21 U/L (0-35) 03/29/25 10:26
Alkaline Phosphatase 145 U/L (38-126) H 03/29/25 10:26
Total Protein 8.0 g/dl (6.3-8.2) 03/29/25 10:26
Albumin 4.3 g/dl (3.5-5.0) 03/29/25 10:26
Physical Exam
-
NAD AAO x 3
Hoarse voice
ABD soft, ND, NT. Denies tenderness.
Surgical sites with glue dressings
Surgical RADHA with serosanguineous fluid
[2025-04-19] MEDS: PROCARDIA XL (EXTENDED RELEASE) PO (10:22)
[2025-04-19] MEDS: COZAAR PO (10:22)
[2025-04-19] MEDS: NSS 1000 IV (10:29)
--- NOTE | 2025-04-19 10:34 | W.PN.CD ---
Today's Communication / Plan
-
continue ICS
Continue BIPAP
no more lasix
Impression / Plan
-
Paraesophageal hernia s/p laparoscopic repair:
-post-op management per surgery
-not having a lot of pain today
-on Lovenox for DVT prophylaxis
SOB:
-I suspect it is due to compressive atelectasis that hasn't improved.
-additionally chronic hypercapnea.
-CXR showed extremely low lung volumes. Likely tiny bilateral pleural effusions.
-does not appear volume overloaded to my assessment
-encourage IS
-improved with BIPAP overnight
-Dr Galicia now following
CONNIE:
-after initial lasix trial but now improved and still slightly negative
-continue to monitor
Moderate-severe TR:
-monitor volume status post-op
-weight as OP at cardiology office visit was 61.69 kg, currently below that and BUN/creatinine elevated and poor PO intake. IV fluids added. Monitor response to this.
HTN:
-stable
-continue nifedipine
Subjective:
Overnight became hypothermic, with increased respiratory effort.
covid/flu negtaive.
CXR with incrased bibasilar opacities bilateral pleural effusions vs pna.
Zosyn and lasix given
Placed on bipap
ECG sinus with ectopy
Currently she is feeling much better, RR improved
Physical Exam
Vital Signs/Labs
Vital Signs
Temp Pulse Resp BP Pulse Ox
98.5 F 86 21 121/63 97
04/19/25 07:00 04/19/25 10:15 04/19/25 10:15 04/19/25 10:15 04/19/25 10:15
04/18/25 04/19/25 04/20/25
06:59 06:59 06:59
Actual Weight 131 lb 6.328 oz
04/19/25 04:14
04/19/25 04:14
Magnesium 2.3 mg/dl (1.6-2.3) 04/18/25 21:27
04/18/25
21:27
[id number] Pept 1560
LAB Results
04/19/25
07:53
Troponin I 0.019
Physical Exam
Constitutional: No acute distress
Cardiovascular: Rhythm & rate is regular, Pedal edema is absent, JVD pressure is normal and Systolic murmur absent
Respiratory: Respiratory effort normal, Lungs clear to auscul., Wheeze Absent, Crackles Absent and Other (no breathsounds in the lower 1/2 of the chest )
Neuro/Psych: AO x 3
Data Reviewed
-
Date of Service: April 19, 2025
Medical Decision Making: Review of Case with other Provider
EKG: Tracing Personally Visualized and interpreted
--- NOTE | 2025-04-19 10:53 | CON.PUL ---
Consultation
Consultation Request
Date/Time Consultation Requested: 04/19/2025-9 AM
Date/Time Consultation Performed: 04/19/2025-9:30 AM
Requesting Provider: General surgery
Performing Provider: Dr. Galicia
Reason for Consultation: Hypoxemia and hypercapnia
Medical History
-
Chief Complaint: Shortness of breath
History of Present Illness:
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
and hypercapnia on BiPAP-pulmonary consulted for hypercapnia shortness of breath 04/19/2025. Patient denies any shortness of breath at rest on oxygen. She does not complain of any chest pain, chest tightness, pleurisy, chest congestion, productive
cough, pleurisy, intermittent abdominal pain is controlled. She does not complain of leg swelling or focal weakness. She is a never smoker and never had any lung issues. She did see pulmonary preoperatively.
Past Medical History
Past Medical History: None (Hypertension. Hyperlipidemia. GERD. Restless leg syndrome. Mild aortic stenosis. Paraesophageal hernia status postrepair this admission. Arthritis. Right ankle surgery 2004. Inguinal hernia repair small bowel
resection 2022.)
Social History
Tobacco: Non-smoker
Alcohol: None
Personal:
Living: With Family
Occupational Exposures: No known asbestos exposure
Environmental Exposures: No known tuberculosis exposure
Family History
Family History: Cancer (Father)
Allergies / Home Medications
Allergies
Allergy/AdvReac Type Severity Reaction Status Date / Time
hydrochlorothiazide Allergy Swelling Verified 04/15/25 10:14
paroxetine Allergy passed out Verified 04/15/25 10:14
Home Medications
�Medication �Instructions �Recorded �Confirmed �Last Taken �Type
pravastatin 20 mg tablet 20 mg PO HS High Cholesterol 08/03/23 04/15/25 04/14/25 21:00 History
magnesium oxide 250 mg PO BID Electrolyte Repletion 11/26/24 04/15/25 04/14/25 21:00 History
ropinirole 2 mg tablet 2 mg PO NOON Neurological Condition 11/26/24 04/08/25 11/25/24 History
acetaminophen 325 mg tablet 650 mg (2 x 325 mg) PO Q6HPRN PRN 12/02/24 04/08/25 Unknown Rx
mild pain/ fever>100.5F #0 tabs
losartan 25 mg tablet 25 mg PO DAILY #30 tabs 12/02/24 04/15/25 04/14/25 08:00 Rx
nifedipine 30 mg tablet,extended 30 mg PO DAILY Blood pressure #0 12/02/24 04/15/25 04/15/25 08:00 Rx
release tabs
Maalox 1 dose PO DAILY Gastrointestinal 04/08/25 04/15/25 04/14/25 21:00 History
Issue
estradiol 0.01% (0.1 mg/gram) 1 g vaginal QWEEK Hormonal Agent 04/08/25 04/08/25 Unknown History
vaginal cream
furosemide 20 mg tablet 20 mg PO DAILY PRN fluid retention 04/08/25 04/15/25 04/12/25 History
ibuprofen 200 mg tablet (Advil) 400 mg PO Q6H PRN pain 04/08/25 04/08/25 Unknown History
oxyquinoline 0.025 %-sodium lauryl ea vaginal .EVERY 2 WEEKS Itch and 04/08/25 Unknown History
sulfate 0.01 % vaginal gel odor control
(Trimo-Vang Jelly)
ropinirole 0.5 mg tablet 0.5 mg PO DAILY PRN restless leg 04/08/25 04/15/25 04/14/25 12:00 History
syndrome
Review of Systems
Vitals / Labs / Diagnostic Testing
Vital Signs
Temp Pulse Resp BP Pulse Ox
98.5 F 86 21 121/63 97
04/19/25 07:00 04/19/25 10:15 04/19/25 10:15 04/19/25 10:15 04/19/25 10:15
Lab Data
04/19/25 04:14
04/19/25 04:14
Microbiology
04/18/25 21:48 Nasal Swab Influenza Types A & B (GRAHAM) - Final
Negative for Influenza A & B, NAAT
Negative results must be combined with clinical observations
and patient history.
Nucleic Acid Amplification test (NAAT)performed on the
[employer] platform.
Diagnostic Testing:
Assessment
-
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
and hypercapnia on BiPAP-pulmonary consulted for hypercapnia shortness of breath 04/19/2025.
Paraesophageal hernia status post laparoscopic repair
Mild chronic hypercapnia-VBG 04/18/2025--62/69/7.23 and VBG 04/19/2025--62/158/7.27
Restrictive lung disease
Mild normocytic anemia-hemoglobin 10.7
Mild hyperglycemia
Conditions present prior to admission:
Hypertension.
Hyperlipidemia.
GERD.
Restless leg syndrome.
Mild aortic stenosis.
Paraesophageal hernia status postrepair this admission.
Arthritis. Right ankle surgery 2004. Inguinal hernia repair small bowel resection 2022.
Plan
Postoperative mild respiratory decompensation which includes some hypoxemia and some mild hypercapnia-acute on top of chronic likely multifactorial
Multiple chest x-rays, CTs of the chest, echocardiogram and pulmonary function testing are summarized below
Arterial blood gases and venous blood gases are reviewed dating back to November 2024 reveals mild chronic hypercapnia with probable baseline pCO2 around 50
Supplemental oxygen as needed-assess discharge supplemental oxygen needs
Incentive spirometry
Aspiration precautions
Mucus clearing maneuvers
Nebulizers if needed-son at the bedside states the patient responded really well to nebulizer earlier
BiPAP-will adjust 16/5 cm with 2 to 5 L O2 at night and as needed
Follow VBG
Gentle diuresis as tolerated
Monitor renal function, electrolytes, intake/output, lower extremity edema and weight
Replace electrolytes as needed
Cardiology following-correspondence reviewed
Observe off antibiotics-no obvious signs of pneumonia-chest x-ray likely effusion/atelectasis-low threshold for antibiotic initiation if temperature, leukocytosis, etc.-currently afebrile, no leukocytosis
Norepinephrine as needed
Monitor hemoglobin
Transfuse if needed
Monitor blood sugar
Insulin supplementation as needed
DVT prophylaxis-on Lovenox
GI prophylaxis-on pantoprazole
Dr. Galicia reviewed with nursing and general surgery
Dr. Galicia reviewed with and son at the bedside on 04/19/2025
The patient saw Perri STUART/Dr. Colon and Dr. Morales on 02/19/2025-recommend follow-up after hospitalization
Diagnostic data:
CXR 12/09/2024: Large hiatal hernia with increased left basilar opacity which may represent pneumonia or increased chronic atelectasis/scarring.
Chest x-ray 04/18/2025-extremely low lung volumes, tiny bilateral pleural effusions
Chest x-ray 04/18/2025-increased bibasilar opacifications may represent bilateral pleural effusions with adjacent atelectasis and/or pneumonia
VSE 11/28/2024: No aspiration.
CT chest 11/27/2024: Massive hiatal hernia containing entire stomach and mid transverse colon. Large amount of subpleural airspace consolidation in the left lower lobe adjacent to the hiatal hernia which is likely chronic compressive atelectasis and
scarring. Small to moderate-sized airspace consolidations in the superior segment of the right lower lobe and anterior segment of the right upper lobe which is most likely multifocal pneumonia. Moderate subpleural airspace consolidation in the right
lower lobe, either compressive atelectasis or pneumonia. Small bilateral pleural effusions. Moderate to severe air distention of the esophagus proximal to the hiatal hernia. Mild cardiomegaly. Severely exaggerated upper thoracic kyphosis and
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
CT chest 01/16/2025-interval resolution of previously seen anterior right upper lobe pneumonia, improved bilateral lower lobe and right middle lobe atelectasis/scarring
Echocardiogram 11/27/2024-EF 65-70%, mild aortic stenosis, SHANNAN 1.7 cm, PA systolic estimated 40-25
PFT 02/19/2025�Postbronchodilator FEV1 1.16 L, 73% of predicted.� FVC 1.57 L, 73% of predicted.� FEV1/FVC 74.��Lung volumes.� Total lung capacity reduced at 2.91 L, 67% of predicted. Diffusion capacity.� Reduced at 7.44, 43% of predicted, when
adjusted for alveolar volume to 68% of predicted.
6MWT 12/19/24: At rest, O2 100% on room air, heart rate 81. With ambulation, O2 aureliano 99%, max heart rate 134. 1/10 on dyspnea scale. Ambulated 300 feet.
Data Reviewed
-
EKG: Report reviewed by me
Radiology: Image personally visualized and interpreted and Report reviewed by me
CT Scan: Image personally visualized and interpreted and Report reviewed by me
Medical Tests (Nuc Med, Echo etc): Report reviewed by me
Labs: Labs reviewed by me
Old Records: Reviewed
Total Time Spent with Patient (in minutes): 65
[2025-04-19] MEDS: REQUIP 2 MG PO (11:34)
--- NOTE | 2025-04-19 12:54 | CM ---
S/P surgical repair Paraesophageal hernia on 04/15/25. POD # 4. Transferred to IMU last evening for SOB. O2 requirements increased from 2L to 3L. Discharge POC: Home with [facility] RN, PT/OT. Referral previously placed.
[2025-04-19] MEDS: DUONEB 3 ML INH ×2 (13:06→19:18)
--- NOTE | 2025-04-19 13:55 | PTCARENOTE ---
Assumed care of patient at beginning of this shift from previous RN with levophed infusing at 4mcg/min; able to wean to off with current BP 120/65 and MAP 82. Patient taken off bipap on initial rounds by RT and placed on 2L n/c. POx 97%. D taylor
drawn on previous shift 1.91, VBG pH 7.27 CO2 [address] Reviewed with Dr Caputo via TT: pulmonary consulted, diet initially changed to NPO until seen by Dr Caputo then advanced to clears and speech consulted d/t patient with hoarse/whisper voice and
recent hx of vocal cord paralysis. Patient seen by Dr Galicia and provided results of VBGs; bipap orders updated, RT aware and following. Patient using IS and acapella. Lungs diminished with shallow breathing. Ox3, drowsy but arousable. See worklist
for full assessment and vital signs.
--- NOTE | 2025-04-19 16:16 | PTOTSP ---
Speech Therapy Swallowing Evaluation
Patient with acute and chronic risk factors for dysphagia/aspiration including vocal fold paralysis, GERD, impaired respiratory status, and overall deconditioned state. No overt signs of aspiration at bedside.
Recommend
1. Allow thin liquids as part of clear liquid diet.
2. Single sips by cup.
3 No straws
4. Aspiration precautions.
5. Reflux precautions.
6. Meds one at a time with liquid as tolerated.
7. ST will follow to determine diet tolerance and need for instrumental testing given risk factors for aspiration.
[2025-04-19] MEDS: ROBITUSSIN 200 MG PO ×2 (16:20→20:46)
[2025-04-19] MEDS: LOVENOX 40 MG SC (17:53)
--- NOTE | 2025-04-19 22:25 | PTCARENOTE ---
Pt received at beginning of shift resting in bed. Very tired. Many visitors in room. Goal explained to pt and visitors for pt to rest/sleep overnight. Pt AAOx3. Very quiet voice from recent vocal cord paralysis on one side per hx. Pt denies pain or
discomfort. Left abdominal RADHA site dressing changed d/t moderate amount s/s drainage. Hypoactive BS. Soft abdomin. Currently switched over to BIPAP overnight POX 94-95%. MANCIA, MICHAELLE. Shallow throughout, diminished at bases. SR/ST/PVC on CM rate 70's at
baseline with 120's x 1 burst while asleep. Rest of VSS. Rodriguez draining yellow urine. 5 abd lap sites with surgical adhesive MAURA. Knee scd's on. Received CHG bath, back rub and rodriguez care. Rest of assessment as documented. Maintained on Q2hr turns.
Call licea remains within reach. Will continue to monitor.
[2025-04-20] VITALS (55 sets, daily range): BP systolic 61–165; BP diastolic 44–119; PULSE 2–105; BMI 22.8
[2025-04-20] MEDS: NSS 1000 IV (01:47)
--- NOTE | 2025-04-20 01:57 | W.PN.UPDATE ---
Update Note
Progress Note Update
Patient went into afib w/RVR with HR in the 110's, up to the 130's. EKG shows afib w/RVR, HR 115, BP 131/94, Resp 15, 96% on room air. Ordered Lopressor 2.5 mg IV x 1 dose.
[2025-04-20] MEDS: LOPRESSOR 2.5 MG IV (02:04)
--- NOTE | 2025-04-20 02:08 | PTCARENOTE ---
At approx 0140 Pt went into Afib rate 110's-140's. BP 134/94 POX 96% on BIPAP. Pt asymptomatic. Afib confirmed by EKG. Aneta STUART on floor and updated. Order entered for IV Lopressor 2.5mg. Pt received IV Lopressor as ordered. Continues in Afib rate
114. Family member staying overnight updated. Will continue to monitor.
[2025-04-20 03:29] LABS: Hematocrit 31.3 % (37.0-47.0); Hemoglobin 10.1 g/dL (12.0-16.0); Mean Corp Hgb Conc. 32.3 g/dL (33.0-37.0); Mean Corpuscular Volume 94.3 fL (81.0-99.0); Platelet Count 137 10^3/uL (130-400); Red Cell Dist. Width 15.5 % (11.5-14.5)
[2025-04-20 03:39] LABS: Blood Urea Nitrogen 23 mg/dl (7-17); Calcium 8.5 mg/dl (8.4-10.2); Carbon Dioxide 29 mmol/L (22-30); Chloride 105 mmol/L (98-107); Estimated Creatinine Clearance 52 ml/min; Glucose 68 mg/dl (70-99); Magnesium 2.1 mg/dl (1.6-2.3); Potassium 4.3 mmol/L (3.5-5.1); Sodium 138 mmol/L (135-145); eGFR > 60.00
[2025-04-20] MEDS: DUONEB 3 ML INH ×3 (07:40→19:10)
--- NOTE | 2025-04-20 07:52 | W.PN.CD ---
Today's Communication / Plan
-
Start dilt gtt with bolus
stop nifedipine
DOAC if ok with surgery.
Impression / Plan
-
AF with RVR:
-new onset
-Recieved IV metoprolol 2.5mg overnight, will transition to iv dilitazem gtt and bolus. Titrate to HR=or <100bpm at rest
-C2V is a 4( Age, gender and HTN), DOAC indicated, will discuss with surgical team. If appropriate will start Eliquis 2.5mg po bid--age and wt
-cm c/s for eliquis cost.
Paraesophageal hernia s/p laparoscopic repair:
-post-op management per surgery
-not having a lot of pain today
-on Lovenox for DVT prophylaxis
SOB:
-I suspect it is due to compressive atelectasis that hasn't improved.
-additionally chronic hypercapnea.
-CXR showed extremely low lung volumes. Likely tiny bilateral pleural effusions.
-does not appear volume overloaded to my assessment
-encourage IS
-improved with BIPAP overnight
-Dr Galicia now following
CONNIE:
-after initial lasix trial but now improved and still slightly negative
-continue to monitor
Moderate-severe TR:
-monitor volume status post-op
-weight as OP at cardiology office visit was 61.69 kg, currently below that and BUN/creatinine elevated and poor PO intake. IV fluids added. Monitor response to this.
HTN:
-stable
-continue nifedipine
Subjective:
went into atrial fibrillation last night.
She is exhausted, doesn't like the bipap mask
TTE 04/19/25:
SUMMARY
1. Ejection fraction is 65-70% by visual assesment.
2. Normal left ventricular size, wall thickness and systolic function. No regional wall motion abnormalities are seen.
3. Right ventricular size and systolic function are within normal limits.
4. Mild to moderate tricuspid regurgitation. Estimated pulmonary artery pressure of 44 mmHg assuming a right atrial pressure of 3 mmHg.
5. There appears to be a possible small patent foramen ovale.
6. Compared to the prior on 11/27/2024, the degree of tricuspid regurgitation has improved from moderate to severe to mild to moderate.
Physical Exam
Vital Signs/Labs
Vital Signs
Temp Pulse Resp BP Pulse Ox
99.0 F 126 26 106/94 95
04/20/25 03:56 04/20/25 07:47 04/20/25 07:47 04/20/25 06:00 04/20/25 07:47
04/19/25 04/20/25 04/21/25
06:59 06:59 06:59
Actual Weight 128 lb 11.999 oz
04/20/25 02:59
04/20/25 02:59
Magnesium 2.1 mg/dl (1.6-2.3) 04/20/25 02:59
04/18/25
21:27
Wnd-H-Faojzqdvcjf Pept 1560
LAB Results
04/19/25
07:53
Troponin I 0.019
Physical Exam
Constitutional: Distress (mild)
Cardiovascular: Pedal edema is absent, JVD pressure is normal, Systolic murmur absent, Diastolic murmur absent and Rhythm/rate is irregular
Respiratory: Respiratory effort normal, Lungs clear to auscul. and Other (decreased at the bases)
Neuro/Psych: AO x 3
Data Reviewed
-
Date of Service: April 20, 2025
Medical Decision Making: Review of Case with other Provider
[2025-04-20] MEDS: CARDIZEM 15 MG IV (08:46)
[2025-04-20] MEDS: CARDIZEM 125 IV (08:47)
[2025-04-20] MEDS: PROTONIX IV 40 MG IV (08:54)
[2025-04-20] MEDS: COLACE PO ×3 (08:54→19:51)
[2025-04-20] MEDS: NSS (PRESERVATIVE FREE) 10 ML IV (08:54)
--- NOTE | 2025-04-20 08:58 | PTCARENOTE ---
Assumed care of Pt at shift change; Pt noted to have labored breathing and tachypnea at rest; A-fib on monitor with HR ~ 130-140's; B/P = 118/75; Cards notified and orders for 15mg IV Cardizem bolus and drip @ 5mg/hr to be initiated. Bolus given
with good response, HR ~ 100's sustained; Drip started; SpO2 ~ 86% on 6L O2; RT contacted to start on MF NC - titrated up to 12L to maintain > 92%. Will continue to monitor and assess.
[2025-04-20] MEDS: ELIQUIS 2.5 MG PO (10:50)
--- NOTE | 2025-04-20 11:00 | W.PN.PUL3 ---
Today's Communication / Plan
-
- N.p.o.
- Transition to high flow nasal cannula
- Stat chest x-ray, VBG
- Low threshold to transfer to ICU
Assessment
-
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
and hypercapnia on BiPAP-pulmonary consulted for hypercapnia shortness of breath 04/19/2025.
Paraesophageal hernia status post laparoscopic repair
Mild chronic hypercapnia-VBG 04/18/2025--62/69/7.23 and VBG 04/19/2025--62/158/7.27
Restrictive lung disease
Mild normocytic anemia-hemoglobin 10.7
Mild hyperglycemia
Conditions present prior to admission:
Hypertension.
Hyperlipidemia.
GERD.
Restless leg syndrome.
Mild aortic stenosis.
Paraesophageal hernia status postrepair this admission.
Arthritis. Right ankle surgery 2004. Inguinal hernia repair small bowel resection 2022.
Assessment and plan:
#1. Acute hypoxic and hypercapnic respiratory failure, worsening overnight (04/20/2025)
- Patient currently on mid flow on 15 L, saturating 87%, respiratory rate around 30
- Switch to high flow nasal cannula at 100% FiO2 and flow of 50 to 55 L, stat VBG, stat chest x-ray
- Keep strict n.p.o. for now
- Incentive spirometry, flutter valve, had not raised
- Patient was able to tolerate BiPAP only briefly overnight, await VBG
- WBC count continues to be normal, afebrile, denies cough or any expectoration
- Differential diagnosis is broad including atelectasis, mucous plugging, aspiration, pneumonia, pulmonary edema etc.
- Low threshold to transfer to ICU depending upon clinical course
- Patient has been on Eliquis, making pulmonary embolism less likely
- Patient at risk of needing intubation and mechanical ventilation, updated patient's family at bedside
#2. Baseline severe restrictive disease
- Restrictive lung disease at baseline due to large hiatal hernia intrathoracic leak
- At baseline patient has mild chronic hypercapnia due to the restrictive lung disease
#3. Paroxysmal atrial fibrillation with RVR
- Audiology service on case, correspondence reviewed
Monitor hemoglobin
Transfuse if needed
Monitor blood sugar
Insulin supplementation as needed
DVT prophylaxis-on Lovenox
GI prophylaxis-on pantoprazole
Dr. Galicia reviewed with nursing and general surgery
Dr. Galicia reviewed with and son at the bedside on 04/19/2025
The patient saw Perri STUART/Dr. Colon on and Dr. Morales on 02/19/2025-recommend follow-up after hospitalization
Diagnostic data:
CXR 12/09/2024: Large hiatal hernia with increased left basilar opacity which may represent pneumonia or increased chronic atelectasis/scarring.
Chest x-ray 04/18/2025-extremely low lung volumes, tiny bilateral pleural effusions
Chest x-ray 04/18/2025-increased bibasilar opacifications may represent bilateral pleural effusions with adjacent atelectasis and/or pneumonia
VSE 11/28/2024: No aspiration.
CT chest 11/27/2024: Massive hiatal hernia containing entire stomach and mid transverse colon. Large amount of subpleural airspace consolidation in the left lower lobe adjacent to the hiatal hernia which is likely chronic compressive atelectasis and
scarring. Small to moderate-sized airspace consolidations in the superior segment of the right lower lobe and anterior segment of the right upper lobe which is most likely multifocal pneumonia. Moderate subpleural airspace consolidation in the right
lower lobe, either compressive atelectasis or pneumonia. Small bilateral pleural effusions. Moderate to severe air distention of the esophagus proximal to the hiatal hernia. Mild cardiomegaly. Severely exaggerated upper thoracic kyphosis and
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
CT chest 01/16/2025-interval resolution of previously seen anterior right upper lobe pneumonia, improved bilateral lower lobe and right middle lobe atelectasis/scarring
Echocardiogram 11/27/2024-EF 65-70%, mild aortic stenosis, SHANNAN 1.7 cm, PA systolic estimated 40-25
PFT 02/19/2025�Postbronchodilator FEV1 1.16 L, 73% of predicted.� FVC 1.57 L, 73% of predicted.� FEV1/FVC 74.��Lung volumes.� Total lung capacity reduced at 2.91 L, 67% of predicted. Diffusion capacity.� Reduced at 7.44, 43% of predicted, when
adjusted for alveolar volume to 68% of predicted.
6MWT 12/19/24: At rest, O2 100% on room air, heart rate 81. With ambulation, O2 aureliano 99%, max heart rate 134. 1/10 on dyspnea scale. Ambulated 300 feet.
Subjective Data
-
Date of Service:
Date of Service: April 20, 2025
Objective Data
Data Reviewed
Vital Signs / I&O / Oxygen:
Vital Signs
Temp Pulse Resp BP Pulse Ox
99.2 F 126 26 118/75 94
04/20/25 07:35 04/20/25 07:47 04/20/25 07:47 04/20/25 08:46 04/20/25 09:59
Intake and Output
04/19/25 04/20/25 04/21/25
06:59 06:59 06:59
Intake Total 1518 / 1518 1270 / 1270
Output Total 1430 / 1430 1580 / 1580
Balance 88 / 88 -310 / -310
SaO2 94
Nasal Cannula flow liters per 6
minute
Labs/Micro/Reports
Lab Data
04/20/25 02:59
04/20/25 02:59
Microbiology
04/18/25 21:48 Nasal Swab Influenza Types A & B (GRAHAM) - Final
Negative for Influenza A & B, NAAT
Negative results must be combined with clinical observations
and patient history.
Nucleic Acid Amplification test (NAAT)performed on the
[employer] platform.
[2025-04-20] MEDS: REQUIP PO (11:36)
[2025-04-20 11:43] LABS: Venous Blood Gas B.E. 0.4 mmol/L (-4 to +4); Venous Blood Gas O2 Sat % 99.9 %
--- NOTE | 2025-04-20 12:07 | PTCARENOTE ---
Noted to have increased work of breathing - MF now at 14L with SpO2 ~ 90%; Cardizem drip increased to 10mg/hr to maintain HR between 80 and 100; Pt seen by Pulm - CXR done at bedside; Placed on HF NC and made strict NPO; Pt brought down for chest
CT as well; To be transferred to ICU, report given to Natalya BEAVER.
--- NOTE | 2025-04-20 13:01 | W.PN.GS2 ---
Today's Communication / Plan
-
pulmonary work up
Assessment / Plan
-
Assessment: 79 y/o female POD #4 s/p robo assisted lap repair type IV PEH with gastropexy;EDG
h/o Hypertension, mild aortic stenosis, moderate to severe tricuspid valve regurgitation, restless legs, severe DJD with scoliosis
Tachycardia with AFib overnight, d/w cardiology
Hypoxia persists, with increasing O2 requirements
No leukocytosis. Stable h/h.
Cr normalized
RADHA output now mostly SSF; nonbloody and expected quantity
Plan:
NPO in light of respiratory decompensation
Appreciate cardiology following. d/w dr stanley, ok to start on AC from surgical standpoint
Pulmonary following, d/w team. CT chest planned
monitor RADHA outputs
c/w rodriguez
protonix for GIp
lovenox/scds/ambulation for VTEp
Subjective Data
-
Date of Service: April 20, 2025
Pt seen and examined with Dr. Lopez at 0845 prior to respiratory decompensation. Denies n/v. Weak vocal quality but writing out what she wants to say. Denies pain. Reports SOB. Pts son updated at bedside.
Objective Data
-
Intake and Output
04/19/25 04/20/25 04/21/25
06:59 06:59 06:59
Intake Total 1518 / 1518 1270 / 1270
Output Total 1430 / 1430 1580 / 1580
Balance 88 / 88 -310 / -310
Intake:
Oral fluids 298 / 298
IV fluids (Total) 1120 / 1120 1270 / 1270
IV piggybacks 100 / 100
Output:
Drain Output (Total) 130 / 130 80 / 80
Left Upper Abdomen Elia- 130 / 130 80 / 80
Rouse
Urine, Rodriguez 1300 / 1300 1050 / 1050
Urine, Voided 450 / 450
Vital Signs
Temp Pulse Resp BP Pulse Ox
99.2 F 126 26 118/75 89
04/20/25 07:35 04/20/25 07:47 04/20/25 07:47 04/20/25 08:46 04/20/25 11:10
Lab Results
04/20/25 02:59
04/20/25 02:59
Calcium 8.5 mg/dl (8.4-10.2) 04/20/25 02:59
Magnesium 2.1 mg/dl (1.6-2.3) 04/20/25 02:59
Total Bilirubin 0.7 mg/dl (0.2-1.3) 03/29/25 10:26
AST 29 U/L (14-36) 03/29/25 10:26
ALT 21 U/L (0-35) 03/29/25 10:26
Alkaline Phosphatase 145 U/L (38-126) H 03/29/25 10:26
Total Protein 8.0 g/dl (6.3-8.2) 03/29/25 10:26
Albumin 4.3 g/dl (3.5-5.0) 03/29/25 10:26
Physical Exam
-
NAD AAO x 3
Hoarse, weak voice
ABD soft, ND, NT.
Surgical sites with intact glue dressings
Surgical RADHA with serosanguineous fluid
Patient has a rodriguez catheter: Yes
--- NOTE | 2025-04-20 13:03 | CM ---
Received CM consult to check cost of Eliquis. I spoke to pharmacist at [facility] [place] [phone].
Eliquis 2.5mg PO BID will cost $115.19 for 30 day supply. Coupon for free 30 day supply is available from [facility] if needed.
[2025-04-20 13:09] LABS: Glucose - Point of Care 70 mg/dl (70-99)
[2025-04-20 13:24] LABS: APTT 30.2 Sec (23.4-35.0); INR 1.08; PT 14.3 Sec (11.4-14.6)
[2025-04-20 13:27] LABS: Magnesium 2.0 mg/dl (1.6-2.3)
--- NOTE | 2025-04-20 13:43 | PTCARENOTE ---
pt received from IMU- pt aox4, soft spoken due to vocal cord paralysis, pt maxed on hfnc and nrb sats 89-91%. pt rr in 30s, increased work of breathing. ivf stopped per Dr. Morales order. cardiziem gtt continues at 10mg/hr to maintain hr<100,
currently in afib rate 90s. see vitals as charted. left john drain with serosang drainage, rodriguez draining yellow urine. scds on. family present at bedside, educated about plan of care, all verbalized understanding. all safety precautions in place,
call licea within reach.
--- NOTE | 2025-04-20 14:42 | OR.RPT ---
Operative Report
Operative Report
Rapid sequence intubation
Indication. Hypoxic respiratory failure. Patient saturating 87-91% on HFNC and nonrebreather at 100% FiO2 with tachypnea, tachycardia and desaturation while talking or moving.. Increased work of breathing. Progressively increasing O2 requirement
since morning.
Consent: Obtained form the patient and family at bedside
Pre-medications: None
Patient was placed in Freed position. Nonrebreather/HFNC was used to preoxygenate, subsequently [id number] ventilation was applied as patient saturations were around 87%. Best O2 saturation obtained prior to intubation was 88%. 18 mg of
Etomidate was given as an induction agent followed by 50 mg of Rocuronium as paralytic. Once patient was apneic, GlideScope was used, blade size #3, grade 1 view of vocal cords was obtained and ET tube, 7.5, was advanced under direct visualization
without any difficulty. Color change was confirmed and patient was bagged until saturations was 94%. Subsequently patient was connected to ventilator. Bilateral good air entry noted. Tube was secured at 21 cm at the teeth. Patient tolerated the
procedure well. O2 saturation post intubation 99%.
Patient developed transient hypotension post procedure, MAP in 50's, which responded to 500 ml NS bolus and brief Levophed infusion.
Time spent: 25 min
Date of Service: 04/20/2025
[2025-04-20] MEDS: DIPRIVAN 100 IV (14:47)
[2025-04-20] MEDS: LEVOPHED 250 IV (14:47)
--- NOTE | 2025-04-20 14:48 | W.PN.UPDATE ---
Update Note
Progress Note Update
Sheet Rocker note:
Patient examined repeatedly throughout the day, oxygen saturation continued to drop and oxygen requirement continued to improve. Initially patient was on mid flow which was switched to high flow nasal cannula. By noon, patient was both on high
flow nasal cannula as well as nonrebreather with saturation barely around 90 to 91%. Stat chest x-ray suggestive of significantly decreased bilateral lung volumes with suspected pleural effusion/pneumonia. A CT chest stat was pursued which was
suggestive of bilateral compressive atelectasis versus pneumonia along with pleural effusions and large intrathoracic hiatal hernia.
In view of worsening hypoxic respiratory failure met with patient and family at bedside explained the poor prognosis and potential need for intubation mechanical ventilation considering patient is maxed on high flow nasal cannula as well as
nonrebreather with increasing respiratory distress. Patient and family agreeable to proceed with intubation and mechanical ventilation followed by thoracentesis if needed.
Rapid sequence intubation was performed following which patient's oxygen saturation improved up to 99%.
Propofol and fentanyl for sedation. Check postintubation chest x-ray and ABG. Blood cultures x 2
Follow-up chest x-ray in a.m.
Critical Care time 74 mins -- The patient is admitted for acute critical illness for the treatment of vital organ failure and/or prevention of further life-threatening conditions. Total care includes time spent in review of history, physical exam,
medications, hemodynamic/ventilator parameters, laboratory data, imaging and discussion with house staff, pharmacy, respiratory therapy, laborer chemical processing, and nursing.
--- NOTE | 2025-04-20 14:48 | CON.HOSP ---
Addendum entered and electronically signed by Jessi Bess MD 04/20/25 16:02:
This is an addendum to the H&P written by Nicolette Vinson on 04/20/2025. �Patient seen and examined independently with TRAIN STATION SERVER.
79-year-old female past medical history of restrictive lung disease, mild chronic hypercapnia, hypertension, mild aortic stenosis, moderate to severe tricuspid valve regurgitation, restless leg syndrome, severe degenerative disc disease, mild
normocytic anemia for which hospitalist consult was requested.
She presented on 04/16 for robotic assisted laparoscopic repair of type IV paraesophageal hernia with gastropexy with EGD and RADHA drain placement. �Postoperatively she had shortness of breath and was given as needed Lasix. �Creatinine increased and she
was given IV fluids. �She was seen by cardiology who suspected bibasilar atelectasis the cause of her acute hypoxemic respiratory failure. �Overnight on 04/18 she became hypothermic, dyspneic and was started on BiPAP. �She was started on IV
antibiotics for bilateral pleural effusion/pneumonia and given Lasix.
She had abdominal distention with watery diarrhea yesterday on 04/19. �Antibiotics were discontinued that day by pulmonary. �Her renal function improved. �She was changed to mid flow oxygen.
Overnight patient developed new onset atrial fibrillation with RVR heart rates up to 130s. �She was given Lopressor. �She was seen by cardiology today and started on Cardizem drip. �Patient with worsening respiratory status today requiring
intubation.
CT chest today shows moderate left pleural effusion with accompanying left lower lobe consolidation/atelectasis, significantly increasing comparison to prior study. �Moderate to large right pleural effusion with accompanying right middle lobe and
right lower lobe consolidation significantly increased in comparison to prior study. �Dilated thoracic esophagus with layering fluid and or fluid material, NG tube extending into the stomach.
Patient currently on propofol drip, Levophed.
Checking repeat labs, monitor blood sugar due to blood sugar of 70.
Patient currently on vancomycin/Zosyn empirically for potential empyema/pneumonia.. Pulmonary to arrange for thoracentesis. Changed Eliquis to heparin drip. All oral medications held.
Original Note:
Family Physician
-
Family Physician: NARCISO Velasquez
Chief Complaint
-
Hypoxia respiratory distress
History of Present Illness
79-year-old female status post robotic assisted lap repair type IV paraesophageal hernia with gastropexy day 4 on 04/15/2025 who last evening developed abdominal distention with multiple liquid bowel movements. She became hypotensive, hypoxic and
hypercapnic last night started on BiPAP and requiring IV fluids and Levophed. Today she was transition to mid flow 15 L but satting 87% with respiratory rate 30. Her respiratory status continued to decline requiring intubation in the ICU. She had
noncontrast CT of the chest showing moderate to large right pleural effusion and moderate left pleural effusion which is likely due to possible CHF.
She developed paroxysmal A-fib with RVR. She was started on Cardizem drip and received Eliquis 2.5 mg today. She was on prior Lovenox subcu
She was also noted to be hypoglycemic at 68 with repeat blood sugar at 70. Patient is currently sedated on IV Diprivan gtt with oxygen saturation 88% on current ventilator. She is pending thoracentesis for the moderate to large right pleural
effusion. Spoke with nurse at bedside no reported diarrhea today.
She has past medical history of restrictive lung disease due to paraesophageal hernia hypertension, hyperlipidemia, GERD, restless leg syndrome, mild aortic stenosis, paraesophageal hernia status post repair this admission, arthritis, inguinal
hernia repair, small bowel resection 2022, right ankle surgery 2004
Medical History
Past Medical History
Past Medical History: Reports Other
Additional Past Medical History:
paraesophageal hernia
hypertension
hyperlipidemia,
GERD
restless leg syndrome
mild aortic stenosis
paraesophageal hernia status post repair 04/15/2025
arthritis
Past Surgical History: Reports Other
Additional Past Surgical History:
paraesophageal hernia status post repair 04/15/2025
inguinal hernia repair,
small bowel resection 2022
right ankle surgery 2004
Social History
Tobacco: Non-smoker
Alcohol: None
Living: With Family
Employment: Retired
Family History
Family History: Unable to Obtain
Allergies / Home Medications
Allergies reflects when Allergies were last updated in [employer].
Home Medications with original date entered in [employer]
Allergy/Medication List:
Allergies
Allergy/AdvReac Type Severity Reaction Status Date / Time
hydrochlorothiazide Allergy Swelling Verified 04/15/25 10:14
paroxetine Allergy passed out Verified 04/15/25 10:14
Home Medications
pravastatin 20 mg tablet 20 mg PO HS High Cholesterol 08/03/23
magnesium oxide 250 mg PO BID Electrolyte Repletion 11/26/24
ropinirole 2 mg tablet 2 mg PO NOON Neurological Condition 11/26/24
acetaminophen 325 mg tablet 650 mg (2 x 325 mg) PO Q6HPRN PRN mild pain/ fever>100.5F #0 tabs 12/02/24
losartan 25 mg tablet 25 mg PO DAILY #30 tabs 12/02/24
nifedipine 30 mg tablet,extended release 30 mg PO DAILY Blood pressure #0 tabs 12/02/24
Maalox 1 dose PO DAILY Gastrointestinal Issue 04/08/25
estradiol 0.01% (0.1 mg/gram) vaginal cream 1 g vaginal QWEEK Hormonal Agent 04/08/25
furosemide 20 mg tablet 20 mg PO DAILY PRN fluid retention 04/08/25
ibuprofen 200 mg tablet (Advil) 400 mg PO Q6H PRN pain 04/08/25
oxyquinoline 0.025 %-sodium lauryl sulfate 0.01 % vaginal gel (Trimo-Vang Jelly) ea vaginal .EVERY 2 WEEKS Itch and odor control 04/08/25
ropinirole 0.5 mg tablet 0.5 mg PO DAILY PRN restless leg syndrome 04/08/25
Review of Systems
-
History Source: Other (Medical records and nurse at bedside)
A 12 point Review of Systems was completed except as noted: Yes
Constitutional: Denies Fever
Respiratory: Reports Trouble Breathing
Cardiac: Denies Diaphoresis
Abdomen/GI: Denies Vomiting or Diarrhea
: Reports Louis (Draining yellow in color)
Musculoskeletal: Denies Edema
Skin: Denies Rash
Psych: Reports Other (Sedated on ventilator)
Physical Exam
Vital Signs
Vital Signs
Temp Pulse Resp BP Pulse Ox
99.2 F 86 24 106/72 91
04/20/25 13:39 04/20/25 13:19 04/20/25 13:19 04/20/25 13:00 04/20/25 13:39
Physical Exam
General: Intubated (And sedated on ventilator); Negative Fever
HEENT: Normocephalic
Respiratory: Other (Diminished bilateral lungs with current bilateral pleural effusions)
Cardiac: S1/S2 and Irregular Rhythm (A-fib); Negative Murmur, Rub or Peripheral Edema
Breast: Deferred by me
GI: Soft, Normal Bowel Sounds and Other (RADHA drains present)
Rectal: Deferred by Provider
Genito-urinary: Louis Catheter (Draining yellow in color)
Musculoskeletal: No Clubbing, No Cyanosis and No Edema
Skin: Warm and Dry; Negative Rash
Neuro: Sedated (On current ventilator)
Psych: Other (Sedated on vent)
Laboratory Results
-
Laboratory Results
04/20/25 02:59
04/20/25 02:59
PT 14.3 Sec (11.4-14.6) 04/20/25 13:07
INR 1.08 04/20/25 13:07
APTT 30.2 Sec (23.4-35.0) 04/20/25 13:07
Total Bilirubin 0.7 mg/dl (0.2-1.3) 03/29/25 10:26
AST 29 U/L (14-36) 03/29/25 10:26
ALT 21 U/L (0-35) 03/29/25 10:26
Alkaline Phosphatase 145 U/L (38-126) H 03/29/25 10:26
Troponin I 0.019 ng/ml 04/19/25 07:53
Data Reviewed
-
CT Scan: Report Reviewed by Me
Lab Data: Labs Reviewed
Impression / Plan
-
Impression/plan:
ICU admission medical consultation
#Acute hypoxic respiratory failure likely secondary to Bilateral Moderate to Large pleural effusions moderate/large Right , moderate left likely due to acute CHF
Was 87% on 15 L mid flow required BiPAP now current intubation
- Pulmonary following
- Check BNP, CBC, BMP, blood cultures x 2, postintubation chest x-ray
- I/O, daily weights
-IV drip at KVO
- Consult IR for thoracentesis with fluid cytology
-Consult wheat washer
-Louis catheter continue for critical care I&O's
- Continue dipper Van for sedation
CT chest noncontrast:
1. Evaluation overall limited as a result of several factors, most prominent lack of intravenous contrast as well as prominent respiration/motion artifact.
2. Moderate left pleural effusion with accompanying left lower lobe consolidation/atelectasis, significantly increased in comparison to prior study.
3. Moderate to large right pleural effusion with accompanying right middle lobe and right lower lobe consolidations, significantly increased in comparison to prior study.
4. Dilated thoracic esophagus with layering fluid and/or fluid material, nasogastric tube extends into the stomach. Large hiatal hernia again noted.
5. No pneumothorax.
#Acute hypotension
-Was given IV fluids
-Continue Levophed drip
- HOLD Nifedipine 30 mg daily, losartan 25 mg daily
#New onset A-fib with RVR
-Continue IV Cardizem
- Cardiology consulted
- Patient was given Eliquis 2.5 mg this a.m. given recent intubation will start IV heparin drip no bolus
2D echo 04/19/2025: EF 65 to 70%, normal LV S LVSF, no wall abnormalities, RVS RV SF within normal limits
Mild to moderate tricuspid regurg(this has improved from moderate to severe from November 27, 2024)
PASP 44 mmHg
Possible small patent foramen ovale
# Acute hypoglycemia due to watery diarrhea/decreased oral intake
Blood sugar 68
- IV dextrose now and as needed, Accu-Cheks every 4 hours
#Status post robotic assisted lap repair with RADHA drains for type IV paraesophageal hernia with gastropexy day 4 on 04/15/2025
- Patient being followed by general surgery
- Monitor RADHA drains
#Acute diarrhea postop paraesophageal hernia
- Patient received Zosyn x 1 day
If persistent watery diarrhea would check stool for C. difficile, stool cultures
- No reported diarrhea at this a.m. per nurse at bedside
#Chronic anemia�normocytic
Hgb 10.1<10.7 on 04/19/2025
- Follow CBC
#Hyperlipidemia
- Hold pravastatin 20 mg at bedtime
# GERD
- Continue Protonix 40 mg daily
#Restless leg syndrome
- Hold Requip as patient is intubated
Other PMH:
Mild aortic stenosis
Arthritis
History inguinal hernia repair
HX small bowel resection 2022
Right ankle surgery 2004
DVT prophylaxis
IV heparin drip for current A-fib
Full code
--- NOTE | 2025-04-20 15:02 | PHA.VAN.IN ---
Assessment
- Assessment
Renal Function: Appears similar to baseline
Maximum Temperature: 99.2
Concomitant Antimicrobials: piperacillin/tazobactam
Plan
- Plan
Initial / Loading Dose: vancomycin 1500 mg x 1
Maintenance Regimen: dose by level
Monitorin/10 @0600
MRSA Screen: Ordered per protocol
Pharmacokinetics Vancomycin I
- -
Patient Age: 79
Patient Sex: Female
Vancomycin Day #: 1
Indication: Pulmonary/Respiratory
Requesting Provider: Dr. Andrew Lara
Height / Weight:
Height 5 ft 3 in
Actual Weight 58.4 kg
IBW in k.4
Adjusted BW in k.8
Pertinent Past Medical History: acute hypoxic respiratory failure
- Vital Signs / Lab Results
Temp Pulse Resp BP Pulse Ox
99.2 F 86 24 106/72 97
04/20/25 13:39 04/20/25 13:19 04/20/25 13:19 04/20/25 13:00 04/20/25 14:28
Lab Results - Hematology
04/18/25 04/19/25 04/20/25
21:27 04:14 02:59
WBC 8.9 9.4 5.1
Lab Results - Chemistry
04/18/25 04/18/25 04/19/25
06:31 21:27 04:14
BUN 36 H 43 H 40 H
Creatinine 1.4 H 1.3 H 1.0
Estimated Creat Clear 26 28 36
04/20/25
02:59
BUN 23 H
Creatinine 0.7
Estimated Creat Clear 52
Microbiology Results
04/18/25 21:48 Influenza Types A & B ([facility]) - Final
Nasal Swab Negative for Influenza A & B, NAAT
Negative results must be combined with clinical observations
and patient history.
Nucleic Acid Amplification test (NAAT)performed on the
[employer] platform.
[2025-04-20 15:31] LABS: B.E. -1.8 mmol/L; HCO3 24.3 mmol/L (21-28); O2 Saturation % 99.9 % (94-98); PCO2 46 mmHg (32-35); PO2 164 mmHg (83-108)
[2025-04-20] MEDS: ZOSYN 50 IV ×2 (15:49→22:52)
[2025-04-20] MEDS: VANCOCIN 530 MG IV (15:50)
[2025-04-20 15:52] LABS: Hematocrit 36.9 % (37.0-47.0); Hemoglobin 11.7 g/dL (12.0-16.0); Mean Corp Hgb Conc. 31.7 g/dL (33.0-37.0); Mean Corpuscular Volume 94.6 fL (81.0-99.0); Nucleated Red Blood Cells % 0 %; Platelet Count 211 10^3/uL (130-400); Red Cell Dist. Width 15.5 % (11.5-14.5)
[2025-04-20 15:57] LABS: ALT (SGPT) 16 U/L (0-35); AST (SGOT) 36 U/L (14-36); Albumin 3.6 g/dl (3.5-5.0); Alkaline Phosphatase 123 U/L (38-126); Blood Urea Nitrogen 25 mg/dl (7-17); Calcium 8.8 mg/dl (8.4-10.2); Carbon Dioxide 24 mmol/L (22-30); Chloride 105 mmol/L (98-107); Estimated Creatinine Clearance 52 ml/min; Glucose 78 mg/dl (70-99); Potassium 4.7 mmol/L (3.5-5.1); Sodium 139 mmol/L (135-145); Total Protein 6.9 g/dl (6.3-8.2); Triglycerides 146 mg/dl (10-149); eGFR > 60.00
[2025-04-20] MEDS: SUBLIMAZE 100 IV (15:58)
[2025-04-20] MEDS: DEXTROSE 50% SYRINGE 12.5 GRAMS IV (16:09)
[2025-04-20 16:10] LABS: Glucose - Point of Care 77 mg/dl (70-99)
[2025-04-20] MEDS: HEPARIN 25000 UNITS/250 ML IV (16:10)
--- NOTE | 2025-04-20 16:30 | PTCARENOTE ---
Dr. Morales at bedside for family meeting- decision made to intubate pt- Dr. Morales intubated pt with 7.5 ett 21cm at lip, confirmed with xray, see settings as charted. abg and all labs drawn and sent. pt with rebound hypotension post intubation-
ivfb given per Dr. Morales and levophed initiated. levo titrated per md order at bedside. fentanyl and prop started, see flowsheets. heparin gtt initiated per order. pt given dextrose for blood sugar. turned and repositioned, full bed bath provided.
all safety precautions in place. family remains updated.
--- NOTE | 2025-04-20 16:40 | PTCARENOTE ---
per Dr. Morales do not place enteral access at this time.
[2025-04-20 16:53] LABS: Glucose - Point of Care 162 mg/dl (70-99)
[2025-04-20] MEDS: SUBLIMAZE 50 MCG IV ×2 (17:05→20:12)
[2025-04-20] MEDS: NSS 500 IV (19:04)
[2025-04-20 20:04] LABS: Glucose - Point of Care 106 mg/dl (70-99)
--- NOTE | 2025-04-20 21:00 | PTCARENOTE ---
Pt is intubated and sedated, easily arousable, able to follow commands and nod head appropriately. ETT 7.5, 21 @ center lip, AC 350/16/75%/5peep. Controlled Afib on monitor, Cardizem has been off since prior shift. + pulses, no edema. Fentanyl,
propofol, IVF, Levophed infusing per protocol. Left RADHA drain, serous sanguineous output. Louis in place. SCDs are on. Q2 hour turns. Right radial Nikki placed by BROACHER. Daughter, Sallie, is at bedside for support of patient.
--- NOTE | 2025-04-20 21:52 | W.PN.UPDATE ---
Update Note
Progress Note Update
Procedure Note: Arterial Line�
� Right Wrist Arrow 20 (11/13)�
Diagnosis:��PNA
IV Line Comments: Uneventful Procedure�
Glynn's test completed pre-procedure: Yes�
A-Line Comments: Sterile technique as per standard protocol, Ultrasound guided insertion�
Functioning A-line in situ: Yes�
A-line Insertion Start Time:�2099�
A-line in at:��2119
[2025-04-20] MEDS: NSS IV (22:39)
[2025-04-20 22:41] LABS: APTT 52.0 Sec (23.4-35.0)
[2025-04-21] VITALS (67 sets, daily range): BP systolic 85–168; BP diastolic 50–90; BMI 23.0
[2025-04-21] MEDS: DIPRIVAN 100 IV
--- NOTE | 2025-04-21 00:41 | PTCARENOTE ---
Temp increasing 100.7, ice packs placed, DISABILITY INSURANCE HEARING OFFICER notified.
[2025-04-21 00:47] LABS: Glucose - Point of Care 95 mg/dl (70-99)
[2025-04-21] MEDS: OFIRMEV 100 IV (03:15)
[2025-04-21 04:09] LABS: Glucose - Point of Care 91 mg/dl (70-99)
[2025-04-21] MEDS: ZOSYN 50 IV ×4 (04:31→21:36)
[2025-04-21 04:32] LABS: B.E. 4.2 mmol/L; HCO3 28.4 mmol/L (21-28); O2 Saturation % 99.1 % (94-98); PCO2 40 mmHg (32-35); PO2 115 mmHg (83-108)
[2025-04-21 04:43] LABS: Hematocrit 30.8 % (37.0-47.0); Hemoglobin 10.3 g/dL (12.0-16.0); Mean Corp Hgb Conc. 33.4 g/dL (33.0-37.0); Mean Corpuscular Volume 92.2 fL (81.0-99.0); Platelet Count 197 10^3/uL (130-400); Red Cell Dist. Width 15.1 % (11.5-14.5)
[2025-04-21 04:56] LABS: APTT 59.1 Sec (23.4-35.0)
[2025-04-21 05:09] LABS: Blood Urea Nitrogen 20 mg/dl (7-17); Calcium 8.3 mg/dl (8.4-10.2); Carbon Dioxide 27 mmol/L (22-30); Chloride 105 mmol/L (98-107); Estimated Creatinine Clearance 52 ml/min; Glucose 98 mg/dl (70-99); Potassium 4.1 mmol/L (3.5-5.1); Sodium 135 mmol/L (135-145); eGFR > 60.00
[2025-04-21] MEDS: SUBLIMAZE 100 IV (05:40)
[2025-04-21] MEDS: COLACE PO ×2 (06:59→21:14)
[2025-04-21] MEDS: DUONEB 3 ML INH ×2 (07:34→13:25)
--- NOTE | 2025-04-21 07:41 | PTCARENOTE ---
pt received from previous rn- ett to vent-pt on propofol and fentanyl, arouses to voice, nods yes and no appropriately, follows commands, denies pain at this time. pt remains in afib. right radial liza zeroed and functioning. levophed remains on
for map>65. heparin continues as per order. am care provided. rodriguez with yellow urine. left john with serous drainage. family at bedside, all educated and verbalized understanding to poc. all safety precautions in place, turned and repositioned.
--- NOTE | 2025-04-21 08:00 | PTCARENOTE ---
heparin on hold per Dr. Andrew alcantara.
--- NOTE | 2025-04-21 08:09 | PHA.VAN.FU ---
Vancomycin Assessment / Plan
- Assessment
Renal Function: Stable
WBC's are: WNL
In the past 24 hrs, patient has been: Afebrile
Concomitant Antimicrobials: piperacillin/tazobactam
- Assessment - Therapeutic Drug Monitoring
Random Level: 10.8 (approx. 12.5 hrs post dose)
- Dosing Plan
Adjust Regimen to: vancomycin 1000 mg Q24H
New Regimen Predicts: AUC (521), Peak (35.6), Trough (11.9)
- Monitoring Plan
No level(s) ordered at this time: consider levels in next few days
- Follow Up
Pharmacy will continue to follow.
Vancomycin Follow UP
- -
Patient Age: 79
Patient Sex: Female
Vancomycin Day #: 2
Indication: Pulmonary/Respiratory
Requesting Provider: Dr. Andrew Lara
Height / Weight:
Height 5 ft 3 in
Actual Weight 59 kg
IBW in k.4
Adjusted BW in k.8
Pertinent Past Medical History: acute hypoxic respiratory failure
- Vital Signs / Lab Results
Temp Pulse Resp BP Pulse Ox
100.1 F 99 16 136/70 97
04/21/25 07:15 04/21/25 07:51 04/21/25 07:51 04/21/25 07:30 04/21/25 07:55
Lab Results - Hematology
04/18/25 04/19/25 04/20/25
21:27 04:14 02:59
WBC 8.9 9.4 5.1
04/20/25 04/21/25
15:33 04:25
WBC 7.8 7.8
Lab Results - Chemistry
04/18/25 04/19/25 04/20/25
21:27 04:14 02:59
BUN 43 H 40 H 23 H
Creatinine 1.3 H 1.0 0.7
Estimated Creat Clear 28 36 52
Albumin
04/20/25 04/21/25
15:33 04:25
BUN 25 H 20 H
Creatinine 0.7 0.7
Estimated Creat Clear 52 52
Albumin 3.6
Therapeutic Drug Monitoring
Random Vancomycin 10.8 ug/ml 04/21/25 04:25
[2025-04-21] MEDS: VANCOCIN 200 IV (08:45)
[2025-04-21] MEDS: LEVOPHED 250 IV ×2 (08:46)
[2025-04-21] MEDS: NSS (PRESERVATIVE FREE) 10 ML IV (08:46)
[2025-04-21] MEDS: PROTONIX IV 40 MG IV (08:46)
--- NOTE | 2025-04-21 08:48 | W.PN.INTV ---
Today's Communication / Plan
Recommendations
- Wean pressors as tolerated
- Plan for right-sided thoracentesis today
Assessment
-
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
and hypercapnia on BiPAP-pulmonary consulted for hypercapnia shortness of breath 04/19/2025.
04/20/10. Patient overnight developed worsening hypoxia initially required mid flow later on switched to high flow as well as nonrebreather. In view of worsening respiratory status, she was transferred to ICU and emergently intubated and
mechanically ventilated on 04/20/2025.
Paraesophageal hernia status post laparoscopic repair
Mild chronic hypercapnia-VBG 04/18/2025--62/69/7.23 and VBG 04/19/2025--62/158/7.27
Restrictive lung disease
Mild normocytic anemia-hemoglobin 10.7
Mild hyperglycemia
Conditions present prior to admission:
Hypertension.
Hyperlipidemia.
GERD.
Restless leg syndrome.
Mild aortic stenosis.
Paraesophageal hernia status postrepair this admission.
Arthritis. Right ankle surgery 2004. Inguinal hernia repair small bowel resection 2022.
04/21/25 overview: Patient currently intubated, mechanically ventilated. Current infusions Fentanyl at 50, propofol at 15, Levophed at 6. Heparin infusion. ABG 7.4 6/40/115, current vent settings 350/16/40%/5. Fluid balance +431 mL. MAP of
around 100.
Assessment and plan:
#1. Acute hypoxic and hypercapnic respiratory failure, worsening overnight (04/20/2025)
- Patient had been on mid flow subsequently high flow and later on required nonrebreather in addition. Intubated on 04/21/2025.
- Bilateral pulmonary opacities concerning for atelectasis versus pneumonia along with bilateral pleural effusions. Also patient has baseline severe restrictive lung disease due to large hiatal hernia intrathoracic. .
- Patient doing much better post intubation, oxygen requirement has improved significantly. ABG 7.4 640/115, currently on volume assist-control 350/16/40%/5. Fluid balance +431 mL.
- Continue broad-spectrum antibiotics with IV vancomycin and Zosyn. No significant endotracheal secretions noted. Blood cultures pending.
- Aspiration pneumonia in differential diagnosis considering large hoatal hernia
- Plan for right-sided thoracentesis today.
- Depending upon clinical course, likely left-sided thoracentesis in the morning followed by SAT/SBT
#2. Baseline severe restrictive disease
- Restrictive lung disease at baseline due to large hiatal hernia intrathoracic.
- At baseline patient has mild chronic hypercapnia due to the restrictive lung disease
#3. Paroxysmal atrial fibrillation with RVR
- Cardiology service on case, correspondence reviewed
- Eliquis has been on hold, currently on heparin infusion
#4. Bilateral pleural effusions.
- ? Etiology. Chylothorax also in differential with recent GI surgery. Other possibilities are parapneumonic effusion vs related to heart failure.
- Plan for bedside right-sided thoracentesis and will send fluid for triglyceride level in addition to usual micro and chemistry studies
#5. Large intra-thoracic hiatal hernia
- S/p laparoscopic repair, 04/2025. Management per surgery service
- Hold off placing OG access or tube feeding for now, anticipate extubation in next 24 to 36 hours
#6. Shock.
- Patient developed hypotension post intubation. Suspect partly related to sedation medications as well as intubation with underlying mild pulmonary hypertension.
- Currently on Levophed, wean as tolerated to keep MAP 65 or above
- Continue broad-spectrum antibiotic with vancomycin and Zosyn, follow-up on cultures
- Echocardiogram reviewed, LVEF is 65 to 70%. BNP however significantly elevated.
DVT prophylaxis- Heparin infusion
GI prophylaxis-on pantoprazole
Updated family at bedside.
The patient saw Perri STUART/Dr. Colon on and Dr. Morales on 02/19/2025-recommend follow-up after hospitalization
Critical Care time 65 mins -- The patient is admitted for acute critical illness for the treatment of vital organ failure and/or prevention of further life-threatening conditions. Total care includes time spent in review of history, physical exam,
medications, hemodynamic/ventilator parameters, laboratory data, imaging and discussion with house staff, pharmacy, respiratory therapy, prospect manager, and nursing.
Diagnostic data:
CXR 12/09/2024: Large hiatal hernia with increased left basilar opacity which may represent pneumonia or increased chronic atelectasis/scarring.
Chest x-ray 04/18/2025-extremely low lung volumes, tiny bilateral pleural effusions
Chest x-ray 04/18/2025-increased bibasilar opacifications may represent bilateral pleural effusions with adjacent atelectasis and/or pneumonia
VSE 11/28/2024: No aspiration.
CT chest 11/27/2024: Massive hiatal hernia containing entire stomach and mid transverse colon. Large amount of subpleural airspace consolidation in the left lower lobe adjacent to the hiatal hernia which is likely chronic compressive atelectasis and
scarring. Small to moderate-sized airspace consolidations in the superior segment of the right lower lobe and anterior segment of the right upper lobe which is most likely multifocal pneumonia. Moderate subpleural airspace consolidation in the right
lower lobe, either compressive atelectasis or pneumonia. Small bilateral pleural effusions. Moderate to severe air distention of the esophagus proximal to the hiatal hernia. Mild cardiomegaly. Severely exaggerated upper thoracic kyphosis and
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
CT chest 01/16/2025-interval resolution of previously seen anterior right upper lobe pneumonia, improved bilateral lower lobe and right middle lobe atelectasis/scarring
Echocardiogram 11/27/2024-EF 65-70%, mild aortic stenosis, SHANNAN 1.7 cm, PA systolic estimated 40-25
PFT 02/19/2025�Postbronchodilator FEV1 1.16 L, 73% of predicted.� FVC 1.57 L, 73% of predicted.� FEV1/FVC 74.��Lung volumes.� Total lung capacity reduced at 2.91 L, 67% of predicted. Diffusion capacity.� Reduced at 7.44, 43% of predicted, when
adjusted for alveolar volume to 68% of predicted.
6MWT 12/19/24: At rest, O2 100% on room air, heart rate 81. With ambulation, O2 aureliano 99%, max heart rate 134. 1/10 on dyspnea scale. Ambulated 300 feet.
Subjective Dataa
Subjective Data
Date of Service:
Date of Service: April 21, 2025
Subjective:
Patient currently intubated, mechanically ventilated and sedated.
Review of Systems
General: Unobtainable - Sedation
Objective Data
Data Reviewed
Vital Signs / I&O / Oxygen:
Vital Signs
Temp Pulse Resp BP Pulse Ox
100.1 F 99 16 136/70 97
04/21/25 07:15 04/21/25 07:51 04/21/25 07:51 04/21/25 07:30 04/21/25 07:55
Intake and Output
04/20/25 04/21/25 04/22/25
06:59 06:59 06:59
Intake Total 1270 / 1270 1557.7 / 1601.5 87.6 / 87.6
Output Total 1580 / 1580 1170 / 1170
Balance -310 / -310 387.7 / 431.5 87.6 / 87.6
SaO2 [A/C] 97
SaO2 97
Nasal Cannula flow liters per 60
minute
Physical Exam
General: Comfortable
HEENT: Normocephalic
Cardiovascular: S1-S2
Respiratory: Clear and Non-Labored Respirations
GI: Soft and Non Distended
Neurology: Other (Sedated, wakes up with minimal stimulation)
Skin: Warm
Labs/Micro/Reports
Lab Data
04/21/25 04:25
04/21/25 04:25
Laboratory Results
04/20/25 04/20/25 04/20/25
13:07 15:21 22:12
PT 14.3
INR 1.08
APTT 30.2 52.0 H
pH 7.33 L
pCO2 46 H
pO2 164 H
HCO3 24.3
O2 Delivery Level
04/21/25
04:25
PT
INR
APTT 59.1 H
pH 7.46 H
pCO2 40 H
pO2 115 H
HCO3 28.4 H
O2 Delivery Level
Microbiology
04/18/25 21:48 Nasal Swab Influenza Types A & B (GRAHAM) - Final
Negative for Influenza A & B, NAAT
Negative results must be combined with clinical observations
and patient history.
Nucleic Acid Amplification test (NAAT)performed on the
[employer] platform.
[2025-04-21] MEDS: SUBLIMAZE 50 MCG IV (09:10)
--- NOTE | 2025-04-21 09:34 | PTOTSP ---
ST HOLD/CONSULT:
Chart reviewed. Pt upgraded to ICU and remains intubated. NAUMKEAG OPERATOR tx on hold at this time. Will need new orders due to upgrade in level of care - please place new orders when pt is extubated and appropriate for NAUMKEAG OPERATOR re-evaluation. Thank you!
--- NOTE | 2025-04-21 09:54 | OR.RPT ---
Operative Report
Operative Report
Thoracentesis, Right
Indication: Large pleural effusion, respiratory failure
Consent: Verbal consent obtained from the patient and at bedside.
Procedure: Patient was placed in semi-seated position and bedside [id number] ultrasound was used to identify the fluid pocket and area was marked. Site was later prepped and cleaned with chlorhexidine and under sterile conditions along with the
sterile probe cover area was identified again with the ctipr-de-tbce ultrasound. 1% lidocaine locally was injected under the skin. After skin was anesthetized under [id number]-[id number] ultrasound guidance, needle was advanced until straw-colored pleural
fluid was aspirated at which time additional lidocaine was injected around the pleural lining and needle was withdrawn. A small skin darling was applied and under suction paracentesis catheter was slowly advanced. Once pleural fluid aspirated, needle
was held still and soft catheter was advanced into the pleural space. Needle was then withdrawn and draining connecting tube was attached to the catheter. Around 120 mL of fluid was sent for fluid analysis including cytology. Subsequently
suctioning, low-grade, was applied and additional 380 mL of straw-colored fluid was removed. Once fluid stopped draining, catheter was withdrawn and dressing was applied at the site of skin puncture. Patient tolerated the procedure well.
Postprocedure gznar-jx-[id number] ultrasound showed very small volume of residual fluid and normal pleural sliding. Ventilator peak pressures stayed unchanged. No desaturation or hemodynamic instability was noted.
Total volume drained: 500 ml, straw colored.
Complications: None. Postprocedure chest x-ray showed significant improvement in lung volume.
Blood loss: < 1 ml
Date of service: 04/21/2025
--- NOTE | 2025-04-21 10:06 | PTCARENOTE ---
Dr. Morales performed right thora- 500cc off, cultures sent per order. heparin resumed, check ptt at noon per md order.
[2025-04-21 11:03] LABS: Body Fluid Second Tech HB
--- NOTE | 2025-04-21 11:38 | W.PN.CD ---
Today's Communication / Plan
-
sbt
wean levophed
monitor hr may need av antonio agent post extubation
CCT 31 minutes
, son, daughter, at the bedside
Impression / Plan
-
Primary cardiology: Dr Cannon
AF with RVR:
-new onset, had some bradycardia and now off dilt gtt with rates of low 100s while on levophed at 4
-continue to monitor off dilt, will reconsider post extubation if needed
-C2V is a 4( Age, gender and HTN), DOAC initiated
-if remains in afib could arrange cardioversion prior to discharge.
Ventilator dependant respirotory failure:
-She continued to decompensate yesterday, intubated with improvement.
-CT chest showed Pleural effusions, no s/p thoracentesis
-also has a history of chornic hypercapnea
-I suspect post op fluid shift over total body volume overload as a single dose of lasix resultied in CONNIE
-monitor volume and try to keep even.
-SBT underway
Hypotnesion:
-seemed due to sedation drugs
-cotinue to wean levophed as able
Paraesophageal hernia s/p laparoscopic repair:
-post-op management per surgery
CONNIE:
-after initial lasix trial but now improved and still slightly negative
-continue to monitor
Moderate-severe TR:
-monitor volume status post-op
-weight as OP at cardiology office visit was 61.69 kg, currently below that and BUN/creatinine elevated and poor PO intake. IV fluids added. Monitor response to this.
HTN:
-stable
-stopped nifedipine for dilt, now off both, will monitor for need to resume agents.
Subjective:
went into atrial fibrillation last night.
She is exhausted, doesn't like the bipap mask
TTE 04/19/25:
SUMMARY
1. Ejection fraction is 65-70% by visual assesment.
2. Normal left ventricular size, wall thickness and systolic function. No regional wall motion abnormalities are seen.
3. Right ventricular size and systolic function are within normal limits.
4. Mild to moderate tricuspid regurgitation. Estimated pulmonary artery pressure of 44 mmHg assuming a right atrial pressure of 3 mmHg.
5. There appears to be a possible small patent foramen ovale.
6. Compared to the prior on 11/27/2024, the degree of tricuspid regurgitation has improved from moderate to severe to mild to moderate.
Physical Exam
Vital Signs/Labs
Vital Signs
Temp Pulse Resp BP Pulse Ox
99.7 F 101 18 168/90 97
04/21/25 11:11 04/21/25 11:03 04/21/25 11:03 04/21/25 10:00 04/21/25 11:03
04/20/25 04/21/25 04/22/25
06:59 06:59 06:59
Actual Weight 128 lb 11.999 oz 130 lb 1.164 oz
04/21/25 04:25
04/21/25 04:25
PT 14.3 Sec (11.4-14.6) 04/20/25 13:07
INR 1.08 04/20/25 13:07
APTT 59.1 Sec (23.4-35.0) H 04/21/25 04:25
Magnesium 2.0 mg/dl (1.6-2.3) 04/20/25 13:07
Triglycerides 146 mg/dl (10-149) 04/20/25 15:33
04/18/25 04/20/25
21:27 15:33
Gec-S-Ndykuqwtdql Pept 1560 4430
LAB Results
04/19/25
07:53
Troponin I 0.019
Physical Exam
Constitutional: No acute distress
Cardiovascular: Pedal edema is absent, JVD pressure is normal and Rhythm/rate is irregular
Respiratory: Respiratory effort normal, Lungs clear to auscul., Wheeze Absent and Crackles Present (bibasilar)
Neuro/Psych: AO x 3
Data Reviewed
-
Date of Service: April 21, 2025
EKG: Other (tele fib in the 100-110s)
[2025-04-21 11:54] LABS: B.E. 3.0 mmol/L; HCO3 27.9 mmol/L (21-28); O2 Saturation % 99.7 % (94-98); PCO2 43 mmHg (32-35); PO2 176 mmHg (83-108)
[2025-04-21 11:57] LABS: Glucose - Point of Care 103 mg/dl (70-99)
[2025-04-21 12:09] LABS: APTT 64.2 Sec (23.4-35.0)
[2025-04-21 12:34] LABS: LDH 319 U/L (120-246); Total Protein 6.0 g/dl (6.3-8.2)
--- NOTE | 2025-04-21 12:40 | RESPNOTE ---
pt extubated at 1235 to 4L nasal cannula
No stridor post extubation noted, 02 sats of 96%
--- NOTE | 2025-04-21 12:41 | PTCARENOTE ---
Addendum entered by Natalya Buckner RN 04/21/25 12:52:
per Dr. Herring do not restart cardizem gtt at this time
Original Note:
pt weaned and extubated to 4LNC, weaning levophed as tolerated. pt alert and appropriate. remains in afib, Dr. Herring aware of rate 100-110s.
--- NOTE | 2025-04-21 13:09 | W.PN.HOSP.TC ---
Today's Communication/Plan
-
see note
Assessment / Plan
Assessment / Plan
CT chest noncontrast:
1. Evaluation overall limited as a result of several factors, most prominent lack of intravenous contrast as well as prominent respiration/motion artifact.
2. Moderate left pleural effusion with accompanying left lower lobe consolidation/atelectasis, significantly increased in comparison to prior study.
3. Moderate to large right pleural effusion with accompanying right middle lobe and right lower lobe consolidations, significantly increased in comparison to prior study.
4. Dilated thoracic esophagus with layering fluid and/or fluid material, nasogastric tube extends into the stomach. Large hiatal hernia again noted.
5. No pneumothorax.
1. Acute hypoxic respiratory failure
Ventilator dependent respiratory failure
Restrictive lung disease
- Respiratory failure multifactorial due to combination of restrictive lung disease/atelectasis versus pneumonia/bilateral pleural effusion
- Patient was tried on mid flow > high flow > nonrebreather, ended up requiring intubation and mechanical ventilation initiated on 04/21 morning
- CT chest and chest x-ray images reviewed
- Pulmonology planning to have right-sided thoracentesis today and possible left thoracentesis tomorrow if needed
- Vent management/weaning per oracle erp architect
2. Type IV paraesophageal hernia
Status post robotic assisted lap repair with gastropexy on 04/15/2025
- POD 6 .
- Postoperative care per general surgery
- RADHA drain in place with drainage decreasing
- Remains n.p.o.
3. Shock
- possible sedative versus rate control meds use related
- Already on broad-spectrum antibiotic
- On small dose of levophed , wean off as possible
4. Paroxysmal A-fib with RVR
- Patient was started on diltiazem although needed to be held due to slow heart rate
- Cardiology following and will consider resumption versus cardioversion if needed
- Patient will be started on DOAC eventually ,current on heparin drip
5. Acute kidney injury - resolved
- Avoid nephrotoxic medication as possible
6. Diarrhea
- Possible side effect of Zosyn
- If persist and concern of new infection will require to check for C. difficile
Chronic normocytic anemia
Hyperlipidemia
Gastroesophageal reflux disease
Restless leg syndrome
Mild aortic stenosis
Osteoarthritis
History of inguinal hernia repair
History of small bowel resection in
History of right ankle surgery in 05
Full code
Heparin drip
Total critical care time 40 mins . Total critical care time documented does not include time spent on separately billed procedures or the services of residents, students, nurses or physician assistants. I personally saw and examined the patient. I
have reviewed all diagnostic interpretations and treatment plans as written. I was present for the rivera portions of any procedures performed and the inclusive time noted in any critical care statement. Critical care time includes patient management
by me, time spent at the patients bedside, time to review lab and imaging results, discussing patient care, documentation in the medical record, and time spent with the family or caregiver.
Anticipated Discharge: > 48 hours
Subjective/Interval History
-
Date of Service: April 21, 2025
Patient intubated on mechanical ventilator at this point
Ongoing small dose vasopressor drip
on diltiazem drip as well
Objective Data
-
Labs:
Laboratory Results
04/21/25 04/21/25 04/21/25
04:25 11:42 18:00
WBC 7.8
Hgb 10.3 L
Hct 30.8 L
Plt Count 197
APTT 59.1 H 64.2 H Pending
HCO3 28.4 H 27.9
Sodium 135
Potassium 4.1
Chloride 105
Carbon Dioxide 27
BUN 20 H
Creatinine 0.7
Glucose 98
Calcium 8.3 L
Vital Signs:
Vital Signs
Temp Pulse Resp BP Pulse Ox
99.7 F 106 11 112/73 96
04/21/25 11:11 04/21/25 12:00 04/21/25 12:00 04/21/25 12:00 04/21/25 12:00
I&O
04/20/25 04/21/25 04/22/25
06:59 06:59 06:59
Intake Total 1270 / 1270 1557.7 / 1601.5 198.1 / 198.1
Output Total 1580 / 1580 1170 / 1170 250 / 250
Balance -310 / -310 387.7 / 431.5 -51.9 / -51.9
Review of Systems
-
Unable to obtain full review of systems at this time due to: Patient Intubation
Physical Exam
-
General: Obese
HEENT: Other (Mecanically ventilated)
Cardiac: Regular Rhythm and S1/S2; Negative Murmur
GI: Soft and Other (Surgical dressing ); Negative Distended
Musculoskeletal: Edema, Right Lower Extrem and Edema, Left Lower Extrem
Neuro: Sedated
[2025-04-21] MEDS: CARDIZEM 125 IV (14:12)
[2025-04-21] MEDS: CARDIZEM 15 MG IV (14:12)
--- NOTE | 2025-04-21 14:24 | PTCARENOTE ---
HR in 130s, Dr. Herring remains aware, cardizem bolus given per order, gtt start at 5mg/hr per protocol.
--- NOTE | 2025-04-21 16:33 | W.PN.GS2 ---
Today's Communication / Plan
-
FILTER OPERATOR eval in AM
Assessment / Plan
-
Assessment: 79 y/o female POD #5 s/p robo assisted lap repair type IV PEH with gastropexy;EDG
h/o Hypertension, mild aortic stenosis, moderate to severe tricuspid valve regurgitation, restless legs, severe DJD with scoliosis
Tachycardia with AF on 04/20, started on AC and diltiazem (with improvement)
Hypoxia requiring intubation on 04/20, extubated less than 24h later
s/p thoracentesis, on abx for PNA
No leukocytosis. Stable h/h.
Cr normalized
RADHA output with light SSF
Plan:
NPO in light of recent extubation, FILTER OPERATOR eval in am and will advance diet thereafter
Ok for AC from surgical standpoing
Appreciate pulm/cardiology teams
ABX as per primary team
monitor RADHA outputs
c/w rodriguez (placed for retention)
protonix for GIp
lovenox/scds/ambulation for VTEp
Subjective Data
-
Date of Service: April 21, 2025
Pt seen and examined at bedside with Dr. Lopez. and primary nurse present at bedside. Patient extubated earlier today and in good spirits. Denies sob. Able to speak and communicate. Denies abdominal pain or nausea. Feels a bit hungry.
Deneis abdominal pain.
Objective Data
-
Intake and Output
04/20/25 04/21/25 04/22/25
06:59 06:59 06:59
Intake Total 1270 / 1270 1557.7 / 1601.5 320.6 / 320.6
Output Total 1580 / 1580 1170 / 1170 435 / 435
Balance -310 / -310 387.7 / 431.5 -114.4 / -114.4
Intake:
IV fluids (Total) 1270 / 1270 654.7 / 698.5 270.6 / 270.6
cardizem 30 / 30
fent 67.5 / 72.5
heparin 116 / 127 81 / 81
levophed 360.0 / 382.5 142.0 / 142.0
propofol 81.2 / 86.5 17.6 / 17.6
IV piggybacks 903 / 903 50 / 50
Output:
Drain Output (Total) 80 / 80 120 / 120 60 / 60
Left Upper Abdomen Elia- 80 / 80 120 / 120 60 / 60
Rouse
Urine, Rodriguez 1050 / 1050 1050 / 1050 375 / 375
Urine, Voided 450 / 450
Vital Signs
Temp Pulse Resp BP Pulse Ox
98.3 F 88 15 87/51 97
04/21/25 15:25 04/21/25 16:02 04/21/25 16:02 04/21/25 16:02 04/21/25 16:02
Lab Results
04/21/25 04:25
04/21/25 04:25
Calcium 8.3 mg/dl (8.4-10.2) L 04/21/25 04:25
Phosphorus 3.2 mg/dl (2.5-4.5) 04/20/25 13:07
Magnesium 2.0 mg/dl (1.6-2.3) 04/20/25 13:07
Total Bilirubin 0.9 mg/dl (0.2-1.3) 04/20/25 15:33
AST 36 U/L (14-36) 04/20/25 15:33
ALT 16 U/L (0-35) 04/20/25 15:33
Alkaline Phosphatase 123 U/L (38-126) 04/20/25 15:33
Total Protein 6.0 g/dl (6.3-8.2) L 04/21/25 11:42
Albumin 3.6 g/dl (3.5-5.0) 04/20/25 15:33
Physical Exam
-
NAD AAO x 3
Hoarse voice
ABD soft, ND, NT.
Surgical sites with intact glue dressings
Surgical RADHA with serosanguineous fluid
Patient has a rodriguez catheter: Yes
--- NOTE | 2025-04-21 16:37 | PTCARENOTE ---
pt awake and alert, no complaints of discomfort, afib on monitor rate 70s continues on Cardizem at 5mg , her map < 65 and was restarted on Levophed gtt for map goal , 4L NC with sats of 98% , pt seen by Dr Rooney and plan to start with diet
tomorrow after pt is seen by Speech therapy
[2025-04-21 18:08] LABS: APTT 115.7 Sec (23.4-35.0)
[2025-04-21] MEDS: HEPARIN 25000 UNITS/250 ML IV (18:28)
[2025-04-21] MEDS: DUONEB INH (19:19)
--- NOTE | 2025-04-21 20:00 | PTCARENOTE ---
Rec'd pt resting in bed, dtr at bedside, oriented, cooperative, Afib, card gtt at 5mg, levo at 2mic- to titrate keeping MAP > 65, seef low sheet for titrations, hep gtt at 1100 units, weak distal pulses, O2 4 liters nc, lungs decr throughout, sat
96, enc to use IS- reaches 500ml, hypo bowel sounds, no bm, abd soft, no n/v, Left RADAH w/ scant serous drainage, abd punc sites intact w/ surg adhesive, rodriguez draining yellow urine
[2025-04-22] VITALS (36 sets, daily range): BP systolic 85–137; BP diastolic 50–93; PULSE 89–140; O2SAT 99; BMI 23.1
--- NOTE | 2025-04-22 | PTCARENOTE ---
Addendum entered by Debby West RN 04/22/25 00:40:
liza w/ poor wave form, dampens
Original Note:
sys reviewed, changes noted, CHG bath done, linens changed
[2025-04-22 00:33] LABS: Glucose - Point of Care 74 mg/dl (70-99)
[2025-04-22 00:44] LABS: APTT 90.0 Sec (23.4-35.0)
[2025-04-22] MEDS: ZOSYN 50 IV ×4 (03:38→22:07)
[2025-04-22] MEDS: ALPRAZOLAM ODT 0.25 MG PO (04:07)
--- NOTE | 2025-04-22 04:09 | PTCARENOTE ---
sys reviewed, anxious, unable to sleep xanax 0.25 mg sl given as ordered
[2025-04-22] MEDS: VANCOCIN 200 IV (05:11)
--- NOTE | 2025-04-22 05:22 | PTCARENOTE ---
liza orona, karen,liza fields'rhona per order
[2025-04-22 05:40] LABS: Hematocrit 28.6 % (37.0-47.0); Hemoglobin 9.2 g/dL (12.0-16.0); Mean Corp Hgb Conc. 32.2 g/dL (33.0-37.0); Mean Corpuscular Volume 95.0 fL (81.0-99.0); Platelet Count 150 10^3/uL (130-400); Red Cell Dist. Width 15.0 % (11.5-14.5)
[2025-04-22 05:46] LABS: APTT 114.7 Sec (23.4-35.0)
--- NOTE | 2025-04-22 06:14 | PTCARENOTE ---
jennifer garcia dc'd per order
[2025-04-22 06:23] LABS: Blood Urea Nitrogen 19 mg/dl (7-17); Calcium 8.3 mg/dl (8.4-10.2); Carbon Dioxide 26 mmol/L (22-30); Chloride 105 mmol/L (98-107); Estimated Creatinine Clearance 46 ml/min; Glucose 59 mg/dl (70-99); Potassium 4.1 mmol/L (3.5-5.1); Sodium 136 mmol/L (135-145); eGFR > 60.00
--- NOTE | 2025-04-22 06:31 | PTCARENOTE ---
serum glucose resulted 59 from 0504, now 0630-accu checked-92
[2025-04-22 06:39] LABS: Glucose - Point of Care 92 mg/dl (70-99)
[2025-04-22] MEDS: DUONEB 3 ML INH ×3 (07:15→19:28)
--- NOTE | 2025-04-22 07:20 | PTCARENOTE ---
Received pt sitting up in the bed. She easily awakens to verbal and tactile stimuli. Heparin 1000units/hr, Cardizem 2.5mg/hr. +pulses trace anasarca. Lungs dim in the bases, orthopneic. 4 liters nasal cannula 97% pulse ox. +BSX4. Awaiting NUTRITION CLUB AMBASSADOR for
clears. Tolerating intermittent ice chips. Abdominal incisions MAURA with surgical glue. Ecchymosis noted on some of her abdominal incisions. Left abdominal RADHA drain with serous fluid. Aspiration precautions maintained. Safe environment maintained. Pt
and her were informed of the plan if care regarding NUTRITION CLUB AMBASSADOR, PT/OT, plans for paracentesis and OOB to the chair. They verbalized their understanding.
[2025-04-22] MEDS: NSS (PRESERVATIVE FREE) 10 ML IV (08:15)
--- NOTE | 2025-04-22 08:28 | W.PN.CD ---
Today's Communication / Plan
-
cont. to wean dilt, norepi
eventual OAC
maintain even fluid balance
s/s eval
Impression / Plan
-
Primary cardiology: Dr Cannon
AF with RVR:
-new onset, had some bradycardia and now on low dose dilt gtt with rates 80s-90s on levo @1
-C2V is a 4( Age, gender and HTN), heparin drip with plan for DOAC prior to discharge
-wean dilt as tolearted, can convert to low dose PO metoprolol for rate control
-if remains in afib could arrange cardioversion prior to discharge vs. rate control strategy
Ventilator dependant respiratory failure, improved
-extubated and status post thoracentesis of R lung with 500 cc fluid remove
-today breathing comfortably, CXR improved, not on oxygen
-also has a history of chronic hypercapnia
-does not appear to be volume overloaded so would only give diuresis to maintain even fluid balance
-needs S/S eval for diet reinitiation
Hypotension, improving
-levo weaned to 1
-seemed due to sedation drugs
-cont to wean levo as able
Paraesophageal hernia s/p laparoscopic repair:
-post-op management per surgery
CONNIE:
-after initial lasix trial but now improved
-continue to monitor
Moderate-severe TR:
-monitor volume status post-op
-weight as OP at cardiology office visit was 61.69 kg, currently below that and BUN/creatinine elevated and poor PO intake. IV fluids added. Monitor response to this.
HTN:
-currently hypotensive
-prior to initiating home BP meds, would get oral metoprolol on board for rate control, if still residual hypertension can then add further antihypertensive meds
Subjective:
extubated
feeling well but thirsty, mouth dry
TTE 04/19/25:
SUMMARY
1. Ejection fraction is 65-70% by visual assesment.
2. Normal left ventricular size, wall thickness and systolic function. No regional wall motion abnormalities are seen.
3. Right ventricular size and systolic function are within normal limits.
4. Mild to moderate tricuspid regurgitation. Estimated pulmonary artery pressure of 44 mmHg assuming a right atrial pressure of 3 mmHg.
5. There appears to be a possible small patent foramen ovale.
6. Compared to the prior on 11/27/2024, the degree of tricuspid regurgitation has improved from moderate to severe to mild to moderate.
Physical Exam
Vital Signs/Labs
Vital Signs
Temp Pulse Resp BP Pulse Ox
36.4 C 91 26 91/57 96
04/22/25 03:41 04/22/25 07:17 04/22/25 07:17 04/22/25 06:00 04/22/25 07:17
04/21/25 04/22/25 04/23/25
06:59 06:59 06:59
Actual Weight 59 kg 59.2 kg
04/22/25 05:04
04/22/25 05:04
PT 14.3 Sec (11.4-14.6) 04/20/25 13:07
INR 1.08 04/20/25 13:07
APTT 114.7 Sec (23.4-35.0) H 04/22/25 05:04
Magnesium 2.0 mg/dl (1.6-2.3) 04/20/25 13:07
Triglycerides 146 mg/dl (10-149) 04/20/25 15:33
04/18/25 04/20/25
21:27 15:33
Zto-Y-Wrukumptryl Pept 1560 4430
LAB Results
04/19/25
07:53
Troponin I 0.019
Physical Exam
Constitutional: Comfortable
Cardiovascular: Pedal edema is absent and Rhythm/rate is irregular
Respiratory: Respiratory effort normal
Neuro/Psych: Alert
Data Reviewed
-
Date of Service: April 22, 2025
Medical Decision Making: Reviewed Test Results
EKG: Tracing Personally Visualized and interpreted
Labs: Labs Reviewed by me
--- NOTE | 2025-04-22 08:57 | PHA.VAN.FU ---
Vancomycin Assessment / Plan
- Assessment
Renal Function: Stable
WBC's are: WNL
In the past 24 hrs, patient has been: Afebrile
Concomitant Antimicrobials: piperacillin/tazobactam
- Dosing Plan
Continue: Vanc 1000mg Q24H
- Monitoring Plan
No level(s) ordered at this time: consider levels in next few days
- Follow Up
Pharmacy will continue to follow.
Vancomycin Follow UP
- -
Patient Age: 79
Patient Sex: Female
Vancomycin Day #: 3
Indication: Pulmonary/Respiratory
Requesting Provider: Dr. Andrew Lara
Pertinent Antimicrobial Allergies:
no pertinent antibiotic allergies
Height / Weight:
Height 5 ft 3 in
Actual Weight 59.2 kg
Pertinent Past Medical History: restrictive lung disease
- Vital Signs / Lab Results
Temp Pulse Resp BP Pulse Ox
97.5 F 91 26 91/57 96
04/22/25 03:41 04/22/25 07:17 04/22/25 07:17 04/22/25 06:00 04/22/25 07:17
Lab Results - Hematology
04/20/25 04/20/25 04/21/25
02:59 15:33 04:25
WBC 5.1 7.8 7.8
04/22/25
05:04
WBC 6.7
Lab Results - Chemistry
04/20/25 04/20/25 04/21/25
02:59 15:33 04:25
BUN 23 H 25 H 20 H
Creatinine 0.7 0.7 0.7
Estimated Creat Clear 52 52 52
Albumin 3.6
04/22/25
05:04
BUN 19 H
Creatinine 0.8
Estimated Creat Clear 46
Albumin
Microbiology Results
04/20/25 15:33 MRSA Screen - Final
Nose No Methicillin Resistant Staphylococcus aureus isolated.
04/20/25 15:47 Blood Culture - Preliminary
Blood/Venous No Growth in 24 hours- Final report to follow
04/20/25 15:33 Blood Culture - Preliminary
Blood/Venous No Growth in 24 hours- Final report to follow
Therapeutic Drug Monitoring
Random Vancomycin 10.8 ug/ml 04/21/25 04:25
--- NOTE | 2025-04-22 09:21 | W.PN.GS2 ---
Addendum entered and electronically signed by Almas Caputo MD 04/22/25 15:21:
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
and son at bedside.
Patient sitting up in chair at bedside.
At the moment she denies shortness of breath. Chief complaint is related to her restless legs.
No nausea, no vomiting, occasional belching. No reflux or regurgitation.
Passing flatus. Last bowel movement 2 days ago.
AF heart rate 100s to 120s -A-fib; low normal BP mildly hypotensive
NAD AO x 3
ABD: Soft, nondistended, no tenderness. RADHA with light serosanguineous fluid surgical glue dressings in place.
A/P: POD #7 status post RAL repair giant type IV PEH with gastropexy
Postoperative course complicated by hypoxia/hypercarbia with intubation 04/20 -extubated following day
Pleural effusion, reactive due to size of hiatal hernia -status post thoracentesis
A-fib with RVR
Medical consultations appreciated for assistance with postoperative care
Resume clear liquid diet as has been cleared by speech therapy
Bowel regiment
RADHA remains in place
Follow H&H on therapeutic anticoagulation
Original Note:
Today's Communication / Plan
-
TRUSS BUILDER eval
Assessment / Plan
-
Assessment: 79 y/o female POD #6 s/p robo assisted lap repair type IV PEH with gastropexy;EDG
h/o Hypertension, mild aortic stenosis, moderate to severe tricuspid valve regurgitation, restless legs, severe DJD with scoliosis
Tachycardia with AF on 04/20, started on AC and diltiazem (with improvement)
Hypotension present, levophed being weaned
Hypoxia requiring intubation on 04/20, extubated less than 24h later
s/p right thoracentesis 04/21 for 500ml, on abx for PNA
No leukocytosis.
H/H decreased today, no active bleeding noted; RADHA output with light SSF. suspect secondary to volume shifts, prolonged illness
Cr now normalized
Plan:
TRUSS BUILDER eval today, tentative clears later today after planned procedure if respiratory status stable
Nutrition consult placed, may need TPN if prolonged NPO is anticipated
Ok to continue AC from surgical standpoint
Appreciate pulm/cardiology teams
ABX as per primary team
monitor RADHA outputs
c/w rodriguez (placed for retention)
protonix for GIp
Subjective Data
-
Date of Service: April 22, 2025
Pt seen at bedside with Dr. Marx. and daughter prsent and updated. She denies pain. No nausea or vomiting. Some mouth dryness.
Objective Data
-
Intake and Output
04/21/25 04/22/25 04/23/25
06:59 06:59 06:59
Intake Total 1557.7 / 1601.5 833.4 / 845.9 12.5 / 12.5
Output Total 1170 / 1170 1125 / 1125
Balance 387.7 / 431.5 -291.6 / -279.1 12.5 / 12.5
Intake:
IV fluids (Total) 654.7 / 698.5 583.4 / 595.9 12.5 / 12.5
cardizem 30 / 30 77.5 / 80.0 2.5 / 2.5
fent 67.5 / 72.5 20 / 20
heparin 116 / 127 270 / 280 10 / 10
levophed 360.0 / 382.5 198.3 / 198.3
propofol 81.2 / 86.5 17.6 / 17.6
IV piggybacks 903 / 903 250 / 250
Output:
Drain Output (Total) 120 / 120 150 / 150
Left Upper Abdomen Elia- 120 / 120 150 / 150
Rouse
Urine, Rodriguez 1050 / 1050 975 / 975
Vital Signs
Temp Pulse Resp BP Pulse Ox
97.5 F 91 26 91/57 96
04/22/25 03:41 04/22/25 07:17 04/22/25 07:17 04/22/25 06:00 04/22/25 07:17
Lab Results
04/22/25 05:04
04/22/25 05:04
Calcium 8.3 mg/dl (8.4-10.2) L 04/22/25 05:04
Phosphorus 3.2 mg/dl (2.5-4.5) 04/20/25 13:07
Magnesium 2.0 mg/dl (1.6-2.3) 04/20/25 13:07
Total Bilirubin 0.9 mg/dl (0.2-1.3) 04/20/25 15:33
AST 36 U/L (14-36) 04/20/25 15:33
ALT 16 U/L (0-35) 04/20/25 15:33
Alkaline Phosphatase 123 U/L (38-126) 04/20/25 15:33
Total Protein 6.0 g/dl (6.3-8.2) L 04/21/25 11:42
Albumin 3.6 g/dl (3.5-5.0) 04/20/25 15:33
Physical Exam
-
NAD AAO x 3
Hoarse voice
ABD soft, ND, NT.
Surgical sites with intact glue dressings
Surgical RADHA with serosanguineous fluid
Patient has a rodriguez catheter: Yes
--- NOTE | 2025-04-22 09:45 | CM ---
Addendum entered by Nayeli Souza 04/22/25 15:54:
tt from [facility] - LOC change to inpatient - IMM explained & signed. Placed in chart
PT/OT rec SNF
/family does not want SNF wants [facility]
Referral in [facility]-accepted
PLAN: Home, with [facility] when stable
Addendum entered by Nayeli Souza 04/22/25 09:51:
PT/OT to eval
PLAN: TBD, follow hospital progress, CM continue to follow for discharge planning/needs
Original Note:
Patient seen at bedside with and DIL
4L oxygen
yesterday thoracentesis of R lung 500cc
MILL LABORER eval
PLAN:
--- NOTE | 2025-04-22 12:05 | W.PN.INTV ---
Today's Communication / Plan
Recommendations
- BMP and procalcitonin in a.m.
- Await speech therapy eval, if able to take p.o. will switch heparin to Eliquis
- Sit in chair as tolerated
- Continue incentive spirometry
- DC IV vancomycin
Assessment
-
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
and hypercapnia on BiPAP-pulmonary consulted for hypercapnia shortness of breath 04/19/2025.
04/20/10. Patient overnight developed worsening hypoxia initially required mid flow later on switched to high flow as well as nonrebreather. In view of worsening respiratory status, she was transferred to ICU and emergently intubated and
mechanically ventilated on 04/20/2025.
Paraesophageal hernia status post laparoscopic repair
Mild chronic hypercapnia-VBG 04/18/2025--62/69/7.23 and VBG 04/19/2025--62/158/7.27
Restrictive lung disease
Mild normocytic anemia-hemoglobin 10.7
Mild hyperglycemia
Conditions present prior to admission:
Hypertension.
Hyperlipidemia.
GERD.
Restless leg syndrome.
Mild aortic stenosis.
Paraesophageal hernia status postrepair this admission.
Arthritis. Right ankle surgery 2004. Inguinal hernia repair small bowel resection 2022.
04/21/25 overview: Patient extubated, currently on 4 L supplemental oxygen, saturating 99%, MAP of 65. Currently on heparin drip as well as Cardizem infusion at 2.5. Off Levophed.
Assessment and plan:
#1. Acute hypoxic and hypercapnic respiratory failure, worsened overnight (04/20/2025)
- Patient had been on mid flow subsequently high flow and later on required nonrebreather in addition. Intubated on 04/21/2025- extbated 04/22/2025
- Bilateral pulmonary opacities concerning for atelectasis versus pneumonia along with bilateral pleural effusions. Also patient has baseline severe restrictive lung disease due to large hiatal hernia intrathoracic.
- Tolerated extubation well, currently saturating 99% on 4 L supplemental oxygen.
- Continues to be afebrile with normal WBC count. Pulmonary opacities more likely compressive atelectasis rather than pneumonia. Discontinue IV vancomycin since MRSA screen is negative. Continue Zosyn for now and check procalcitonin level in AM.
- Aspiration pneumonia in differential diagnosis considering large hiatal hernia
#2. Bilateral pleural effusions, R>L
- Right sided thoracentesis, bedside, 04/21. Straw colored 500 ml fluid removed. LDH 153, transudate by LDH criterial. Borderline exudate by Protein criteria. Since she had received diuresis earlier, more like pseudo-exudate. Cultures negative so
far.
- BNP >4000, ? related to HFpEF. Appears euvolemic on exam. Borderline blood pressure, holding off diuresis for now
- POCUS left side, 04/22. Small effusion noted without a safe pocket for bedside thoracentesis.
- Serial CXR, if enlarging effusions, will re-consider thoracentesis
- Triglycerides low, rules out Chylothorax.
#3. Baseline severe restrictive disease
- Restrictive lung disease at baseline due to large hiatal hernia intrathoracic.
- At baseline patient has mild chronic hypercapnia due to the restrictive lung disease
#4. Paroxysmal atrial fibrillation with RVR
- Cardiology service on case, correspondence reviewed. On Cardizem infusion currently.
- Eliquis has been on hold, currently on heparin infusion
- Once passes swallow eval, will resume Eliquis
#5. Large intra-thoracic hiatal hernia
- S/p laparoscopic repair, 04/2025. Management per surgery service
- Await speech therapy eval
#6. Shock.
- Patient developed hypotension post intubation. Suspect partly related to sedation medications as well as intubation with underlying mild pulmonary hypertension.
- Off levophed now
- d/c Vancomcyin. Continue Zosyn, check PCT in AM.
- Echocardiogram reviewed, LVEF is 65 to 70%. BNP however significantly elevated.
DVT prophylaxis- Heparin infusion
GI prophylaxis-on pantoprazole
Updated family at bedside.
The patient saw Perri STUART/Dr. Colon and Dr. Morales on 02/19/2025-recommend follow-up after hospitalization
Critical Care time 65 mins -- The patient is admitted for acute critical illness for the treatment of vital organ failure and/or prevention of further life-threatening conditions. Total care includes time spent in review of history, physical exam,
medications, hemodynamic/ventilator parameters, laboratory data, imaging and discussion with house staff, pharmacy, respiratory therapy, elevated work platform operator, and nursing.
Diagnostic data:
CXR 12/09/2024: Large hiatal hernia with increased left basilar opacity which may represent pneumonia or increased chronic atelectasis/scarring.
Chest x-ray 04/18/2025-extremely low lung volumes, tiny bilateral pleural effusions
Chest x-ray 04/18/2025-increased bibasilar opacifications may represent bilateral pleural effusions with adjacent atelectasis and/or pneumonia
VSE 11/28/2024: No aspiration.
CT chest 11/27/2024: Massive hiatal hernia containing entire stomach and mid transverse colon. Large amount of subpleural airspace consolidation in the left lower lobe adjacent to the hiatal hernia which is likely chronic compressive atelectasis and
scarring. Small to moderate-sized airspace consolidations in the superior segment of the right lower lobe and anterior segment of the right upper lobe which is most likely multifocal pneumonia. Moderate subpleural airspace consolidation in the right
lower lobe, either compressive atelectasis or pneumonia. Small bilateral pleural effusions. Moderate to severe air distention of the esophagus proximal to the hiatal hernia. Mild cardiomegaly. Severely exaggerated upper thoracic kyphosis and
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
CT chest 01/16/2025-interval resolution of previously seen anterior right upper lobe pneumonia, improved bilateral lower lobe and right middle lobe atelectasis/scarring
Echocardiogram 11/27/2024-EF 65-70%, mild aortic stenosis, SHANNAN 1.7 cm, PA systolic estimated 40-25
PFT 02/19/2025�Postbronchodilator FEV1 1.16 L, 73% of predicted.� FVC 1.57 L, 73% of predicted.� FEV1/FVC 74.��Lung volumes.� Total lung capacity reduced at 2.91 L, 67% of predicted. Diffusion capacity.� Reduced at 7.44, 43% of predicted, when
adjusted for alveolar volume to 68% of predicted.
6MWT 12/19/24: At rest, O2 100% on room air, heart rate 81. With ambulation, O2 aureliano 99%, max heart rate 134. 1/10 on dyspnea scale. Ambulated 300 feet.
Subjective Dataa
Subjective Data
Date of Service:
Date of Service: April 22, 2025
Subjective:
Patient comfortably lying in bed in no acute distress.
Review of Systems
Genitourinary: Other (Denies any new symptoms.)
Objective Data
Data Reviewed
Vital Signs / I&O / Oxygen:
Vital Signs
Temp Pulse Resp BP Pulse Ox
97.5 F 92 17 100/65 98
04/22/25 03:41 04/22/25 11:30 04/22/25 11:30 04/22/25 11:00 04/22/25 10:00
Intake and Output
04/21/25 04/22/25 04/23/25
06:59 06:59 06:59
Intake Total 1557.7 / 1601.5 833.4 / 845.9 42.5 / 42.5
Output Total 1170 / 1170 1125 / 1125
Balance 387.7 / 431.5 -291.6 / -279.1 42.5 / 42.5
SaO2 [CPAP] 96
SaO2 [A/C] 97
SaO2 98
Nasal Cannula flow liters per 4
minute
Physical Exam
General: Comfortable
HEENT: Normocephalic
Cardiovascular: S1-S2
Respiratory: Clear and Non-Labored Respirations
GI: Soft and Non Distended
Neurology: Awake and Alert
Skin: Warm
Labs/Micro/Reports
Lab Data
04/22/25 05:04
04/22/25 05:04
Laboratory Results
04/21/25 04/21/25 04/22/25
11:42 17:45 00:08
APTT 64.2 H 115.7 H 90.0 H
04/22/25 04/22/25
05:04 12:00
APTT 114.7 H Cancelled
Microbiology
04/21/25 09:39 Pleural Fluid Body Fluid Culture - Preliminary
No Growth After 18-24 Hours
04/21/25 09:39 Pleural Fluid Gram Stain - Final
04/20/25 15:33 Nose MRSA Screen - Final
No Methicillin Resistant Staphylococcus aureus isolated.
04/20/25 15:47 Blood/Venous Blood Culture - Preliminary
No Growth in 24 hours- Final report to follow
04/20/25 15:33 Blood/Venous Blood Culture - Preliminary
No Growth in 24 hours- Final report to follow
--- NOTE | 2025-04-22 12:45 | PTCARENOTE ---
OOB to the chair with PT/OT. She appears comfortable. Her HR did peak @ 140's & quickly came down to 115 while PT/OT were working with her. Oxygen saturation 98%, Nasal cannula now 2 liters nasal cannula. Safe environment maintained.
--- NOTE | 2025-04-22 13:23 | PTCARENOTE ---
Pt tolerated transfer OOB to the chair. She has a supportive family encouraging coughing and deep breathig and use of the IS. She ia barely able to pull in 500ml's on the IS. Breath sounds dim in the bases. Oxygen tapered to 2 liters nasal cannula.
+BSx4. C/O hunger. Passed swallow evaluation. Dr. Lan aware. Will wait for diet order and plans to discontinue Heparin drip and possible OAC. Safe environment maintained. RADHA drain secured to pt gown to bulb suction and draining serous fluid.
--- NOTE | 2025-04-22 14:25 | W.PN.HOSP.TC ---
Today's Communication/Plan
-
Monitor vital signs see plan
Continue to monitor blood pressure and HR closely
Clears per surgery
PT
Continue abx
Discussed with family at bedside
Assessment / Plan
Assessment / Plan
CT chest noncontrast:
1. Evaluation overall limited as a result of several factors, most prominent lack of intravenous contrast as well as prominent respiration/motion artifact.
2. Moderate left pleural effusion with accompanying left lower lobe consolidation/atelectasis, significantly increased in comparison to prior study.
3. Moderate to large right pleural effusion with accompanying right middle lobe and right lower lobe consolidations, significantly increased in comparison to prior study.
4. Dilated thoracic esophagus with layering fluid and/or fluid material, nasogastric tube extends into the stomach. Large hiatal hernia again noted.
5. No pneumothorax.
Acute hypoxic respiratory failure
Ventilator dependent respiratory failure
Restrictive lung disease
- Respiratory failure multifactorial due to combination of restrictive lung disease/atelectasis versus pneumonia/bilateral pleural effusion
- Patient was tried on mid flow > high flow > nonrebreather, ended up requiring intubation and mechanical ventilation. Status postextubation. Now on nasal cannula. Wean oxygen as tolerated
- CT chest and chest x-ray images reviewed
Status post right-sided Thora 04/21. Pocus on left side 04/22 with small effusion
Follow Thora culture
Type IV paraesophageal hernia
Status post robotic assisted lap repair with gastropexy on 04/15/2025
- Postoperative care per general surgery
- RADHA drain in place with drainage decreasing
Diet per surgery
Shock
- possible sedative versus rate control meds use related
- Already on broad-spectrum antibiotic
- On small dose of levophed , wean off as possible
Paroxysmal A-fib with RVR
- Patient was started on diltiazem although needed to be held due to slow heart rate
- Cardiology following and will consider cardioversion if needed
- Patient will be started on DOAC eventually ,current on heparin drip
Acute kidney injury - resolved
- Avoid nephrotoxic medication as possible
Diarrhea
- Possible side effect of Zosyn
- If persist and concern of new infection will require to check for C. difficile
Chronic normocytic anemia
Hyperlipidemia
Gastroesophageal reflux disease
Restless leg syndrome
Mild aortic stenosis
Osteoarthritis
History of inguinal hernia repair
History of small bowel resection in
History of right ankle surgery in
Full code
Heparin drip
General: Obese
HEENT: Anicteric, pink conjunctiva
Cardiac: iregular Rhythm and S1/S2
Lungs: Clear to auscultation, dull breath sounds
GI: Soft and Other (Surgical dressing ); Negative Distended
Musculoskeletal: Edema, Right Lower Extrem and Edema, Left Lower Extrem
Neuro: AAOX3
I spent a total of 52 minutes with the patient or on the floor. More than 50% of this time involved counseling and coordination of care.
Anticipated Discharge: > 48 hours
Subjective/Interval History
-
Date of Service: April 22, 2025
denies pain
Objective Data
-
Labs:
Laboratory Results
04/22/25 04/22/25 04/22/25
05:04 12:00 16:40
WBC 6.7
Hgb 9.2 L
Hct 28.6 L
Plt Count 150 D
APTT 114.7 H Cancelled Pending
Sodium 136
Potassium 4.1
Chloride 105
Carbon Dioxide 26
BUN 19 H
Creatinine 0.8
Glucose 59 L
Calcium 8.3 L
Vital Signs:
Vital Signs
Temp Pulse Resp BP Pulse Ox
97.5 F 105 18 86/51 96
04/22/25 12:30 04/22/25 14:01 04/22/25 14:01 04/22/25 12:00 04/22/25 14:01
I&O
04/21/25 04/22/25 04/23/25
06:59 06:59 06:59
Intake Total 1557.7 / 1601.5 833.4 / 845.9 55.0 / 55.0
Output Total 1170 / 1170 1125 / 1125
Balance 387.7 / 431.5 -291.6 / -279.1 55.0 / 55.0
--- NOTE | 2025-04-22 15:08 | PTCARENOTE ---
Notified Dr. Billingsley via TT regarding her HR of 111-134 since Cardizem drip off due to BP. Will restart Cardizem and if necessary will restart Norepinephrine if needed.
[2025-04-22] MEDS: REQUIP 2 MG PO (16:12)
[2025-04-22] MEDS: PROTONIX IV 40 MG IV (16:25)
[2025-04-22 16:47] LABS: APTT 55.1 Sec (23.4-35.0)
[2025-04-22] MEDS: CARDIZEM 125 IV (17:37)
--- NOTE | 2025-04-22 18:18 | PTCARENOTE ---
2 moderate assist to commode then bed. Adhesive foam dressing applies to both heels, Knee-hi SCD's intact. She remain in a afib peaked @10 when standing, once seated she quickly recovered to 115. She appears extremely tires @ this time.
[2025-04-22] MEDS: COLACE PO (18:46)
[2025-04-22] MEDS: HEPARIN 25000 UNITS/250 ML IV (19:08)
--- NOTE | 2025-04-22 20:00 | PTCARENOTE ---
Rec'd pt drowsy but arousable, oriented, cooperative when awakened, very weak, follow commands, family at bedside & updated on pt care, AFib, card gtt at 5mg/hr, hep gtt at 1200 units/hr, weak distal pulses, + edema, skin warm/dry, O2 2 litersnc,
lungs decr throughout, sat 92-95, occas prod cough for sm amt yellow secretions- uses yankeaur; enc to use IS and acapella, reaches 500 on IS, family enc assist pt w/ IS ; no sob, hypo bowel sounds , no bm, abd soft, left RADHA dsg sat w/ serous fluid-
dsg changed, sunita ice chips, purewick placed
--- NOTE | 2025-04-22 22:27 | PTCARENOTE ---
sat on 2 liters- 90, o2 incr to 4 litersnc, bladder scanned for 149ml
[2025-04-22 23:59] LABS: APTT 94.7 Sec (23.4-35.0)
[2025-04-23] VITALS (26 sets, daily range): BP systolic 84–122; BP diastolic 51–86; PULSE 2–73; BMI 23.0
--- NOTE | 2025-04-23 00:16 | PTCARENOTE ---
sys reviewed, CHG bath done, linens changed, very weak and needs a lot of enc with care
[2025-04-23 00:18] LABS: Glucose - Point of Care 104 mg/dl (70-99)
[2025-04-23 00:18] LABS: Glucose - Point of Care 71 mg/dl (70-99)
[2025-04-23] MEDS: ZOSYN 50 IV (03:40)
--- NOTE | 2025-04-23 03:51 | SUR.PHASEI ---
Addendum entered by Debby West RN 04/23/25 03:54:
bladder scanned for 274ml
Original Note:
awakened from sleep,sys reviewed, very weak, afib rate incr to 120 when turning, returns to 90's when restingsat 95, o2 decr to 2 liters nc
--- NOTE | 2025-04-23 04:03 | PTCARENOTE ---
converted to NSR w/ PAC's rate 60's; Card gtt off
[2025-04-23 04:24] LABS: Hematocrit 30.5 % (37.0-47.0); Hemoglobin 9.8 g/dL (12.0-16.0); Mean Corp Hgb Conc. 32.1 g/dL (33.0-37.0); Mean Corpuscular Volume 96.5 fL (81.0-99.0); Platelet Count 160 10^3/uL (130-400); Red Cell Dist. Width 14.6 % (11.5-14.5)
[2025-04-23 04:37] LABS: Procalcitonin 0.07 ng/ml (0.0-0.25)
--- NOTE | 2025-04-23 05:14 | PTCARENOTE ---
lethargic but arousable, then drifts off to sleep, bladder scanned for no urine output this night-304ml, B KOBE Mattson aware of scan results and lethargy; vbg sent as ordered
[2025-04-23 05:18] LABS: Venous Blood Gas B.E. 1.8 mmol/L (-4 to +4); Venous Blood Gas O2 Sat % 100.0 %
[2025-04-23 05:23] LABS: Blood Urea Nitrogen 21 mg/dl (7-17); Calcium 8.4 mg/dl (8.4-10.2); Carbon Dioxide 27 mmol/L (22-30); Chloride 104 mmol/L (98-107); Estimated Creatinine Clearance 52 ml/min; Glucose 103 mg/dl (70-99); Potassium 4.7 mmol/L (3.5-5.1); Sodium 137 mmol/L (135-145); eGFR > 60.00
--- NOTE | 2025-04-23 05:48 | PTCARENOTE ---
placed on bipap 10/5 w/ 2 liters by resp therapist, cxr done, and son updated onpt status, at bedside
[2025-04-23 06:23] LABS: APTT 112.4 Sec (23.4-35.0)
--- NOTE | 2025-04-23 07:35 | W.PN.GS2 ---
Today's Communication / Plan
-
`
Assessment / Plan
-
Assessment: 79 y/o female POD #8 s/p robo assisted lap repair type IV PEH with gastropexy;EDG
h/o Hypertension, mild aortic stenosis, moderate to severe tricuspid valve regurgitation, restless legs, severe DJD with scoliosis
Afib with RVR on 04/20, started on AC and diltiazem (with improvement) -> in sinus this AM 04/23
hypotension - now off levophed
Hypoxia requiring intubation on 04/20, extubated less than 24h later; s/p right thoracentesis 04/21
Hypercarbia
Plan: anticipating challenges with adequate PO intake going forward
place PICC and start TPN -> dht may be challenging to place and manage with recent PEH repair and ongoing BiPAP
when medically stable discussed with patient's family strong consideration of placement of PEG tube to ensure adequate nutritional intake potentially
okay for clear liquids
continue therapeutic AC from surgical standpoint
Appreciate pulm/cardiology teams
start bipap nightly to reduce risk of recurrent hypercarbia
monitor RADHA outputs
protonix for GIp
Subjective Data
-
Date of Service: April 23, 2025
pt seen and examined
more somnolent overnight into this AM - placed back on bipap at 6am
now open eyes and responsive
and son at bedside
Objective Data
-
Intake and Output
04/22/25 04/23/25 04/24/25
06:59 06:59 06:59
Intake Total 833.4 / 845.9 445.0 / 445.0
Output Total 1125 / 1125 255 / 255
Balance -291.6 / -279.1 190.0 / 190
Intake:
Oral fluids 50 / 50
IV fluids (Total) 583.4 / 595.9 295.0 / 295.0
cardizem 77.5 / 80.0 75.0 / 75.0
fent 20 / 20
heparin 270 / 280 220 / 220
levophed 198.3 / 198.3
propofol 17.6 / 17.6
IV piggybacks 250 / 250 100 / 100
Output:
Drain Output (Total) 150 / 150 30 / 30
Left Upper Abdomen Elia- 150 / 150 30 / 30
Rouse
Urine, Louis 975 / 975
Urine, Voided 225 / 225
Vital Signs
Temp Pulse Resp BP Pulse Ox
97.2 F 70 12 98/52 96
04/23/25 03:01 04/23/25 06:00 04/23/25 06:02 04/23/25 06:00 04/23/25 06:00
Lab Results
04/23/25 03:45
04/23/25 03:45
Calcium 8.4 mg/dl (8.4-10.2) 04/23/25 03:45
Phosphorus 3.2 mg/dl (2.5-4.5) 04/20/25 13:07
Magnesium 2.0 mg/dl (1.6-2.3) 04/20/25 13:07
Total Bilirubin 0.9 mg/dl (0.2-1.3) 04/20/25 15:33
AST 36 U/L (14-36) 04/20/25 15:33
ALT 16 U/L (0-35) 04/20/25 15:33
Alkaline Phosphatase 123 U/L (38-126) 04/20/25 15:33
Total Protein 6.0 g/dl (6.3-8.2) L 04/21/25 11:42
Albumin 3.6 g/dl (3.5-5.0) 04/20/25 15:33
Physical Exam
-
NAD AAOx3 - sleeping on and off
Bipap mask in place
ABD: soft, ND, NTTP
RADHA with scant SSF
[2025-04-23] MEDS: DUONEB 3 ML INH ×3 (07:40→19:19)
--- NOTE | 2025-04-23 08:00 | PTCARENOTE ---
pt NSR on monitor , IV Cardizem is off , HR 60s , she is very drowsy and difficult to arouse , she was placed on bipap overnight , VBG ordered for evaluation , pt and son is in room and updated by Dr Morales
--- NOTE | 2025-04-23 09:01 | W.PN.INTV ---
Today's Communication / Plan
Recommendations
- Switch to AVAPS, 450/18, EPAP 6, minimum pressure support 10, max pressure 25. Follow-up ABG in 45 minutes
- Discontinue IV Zosyn
- Will continue AVAPS nightly and as needed during daytime going forward.
- Initiating TPN via PICC line
Assessment
-
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
and hypercapnia on BiPAP-pulmonary consulted for hypercapnia shortness of breath 04/19/2025.
04/20/10. Patient overnight developed worsening hypoxia initially required mid flow later on switched to high flow as well as nonrebreather. In view of worsening respiratory status, she was transferred to ICU and emergently intubated and
mechanically ventilated on 04/20/2025.
Paraesophageal hernia status post laparoscopic repair
Mild chronic hypercapnia-VBG 04/18/2025--62/69/7.23 and VBG 04/19/2025--62/158/7.27
Restrictive lung disease
Mild normocytic anemia-hemoglobin 10.7
Mild hyperglycemia
Conditions present prior to admission:
Hypertension.
Hyperlipidemia.
GERD.
Restless leg syndrome.
Mild aortic stenosis.
Paraesophageal hernia status postrepair this admission.
Arthritis. Right ankle surgery 2004. Inguinal hernia repair small bowel resection 2022.
04/21/25 overview: Patient extubated, currently on 4 L supplemental oxygen, saturating 99%, MAP of 65. Currently on heparin drip as well as Cardizem infusion at 2.5. Off Levophed.
Assessment and plan:
#1. Acute hypoxic and hypercapnic respiratory failure, worsened overnight (04/20/2025)
- Patient had been on mid flow subsequently high flow and later on required nonrebreather in addition. Intubated on 04/21/2025- extbated 04/22/2025
- Bilateral pulmonary opacities concerning for atelectasis versus pneumonia along with bilateral pleural effusions. Also patient has baseline severe restrictive lung disease due to large hiatal hernia intrathoracic.
- Tolerated extubation well, currently saturating 99% on 4 L supplemental oxygen.
- Continues to be afebrile with normal WBC count. Pulmonary opacities more likely compressive atelectasis rather than pneumonia. Discontinue IV vancomycin since MRSA screen is negative. Continue Zosyn for now and check procalcitonin level in AM.
- Aspiration pneumonia in differential diagnosis considering large hiatal hernia
#1a. Acute encephalopathy with acute on chronic hypercapnic respiratory failure (04/23)
- Increased CO2 retention overnight, BIPAP initiated 04/23
- Baseline severe restriction due to large hiatal hernia, kyphosis. Now post op atelectasis, pleura effusion and likely additional nocturnal hypoventilation. Continue nightly BIPAP
- on 06/16, pulling mid 300's to 400 ml tidal volume. f/u ABG 7.24/65. Switch to AVAPS, serial ABG, 450/18, EPAP 6, PS min 10, max pressure 25. F/u ABG in 45mins
- Patient otherwise awake, alert and responsive.
#2. Bilateral pleural effusions, R>L
- Right sided thoracentesis, bedside, 04/21. Straw colored 500 ml fluid removed. LDH 153, transudate by LDH criterial. Borderline exudate by Protein criteria. Since she had received diuresis earlier, more like pseudo-exudate. Cultures negative so
far. Suspect related to volume overload considering elevated BNP as well.
- BNP >4000, ? related to HFpEF. Appears euvolemic on exam. Borderline blood pressure, holding off diuresis for now
- POCUS left side, 04/22. Small effusion noted without a safe pocket for bedside thoracentesis.
- Serial CXR, if enlarging effusions, will re-consider thoracentesis
- Triglycerides low, rules out Chylothorax.
#3. Baseline severe restrictive disease
- Restrictive lung disease at baseline due to large hiatal hernia intrathoracic.
- At baseline patient has mild chronic hypercapnia due to the restrictive lung disease
#4. Paroxysmal atrial fibrillation with RVR
- Cardiology service on case, correspondence reviewed. On Cardizem infusion currently.
- Eliquis has been on hold, currently on heparin infusion
- Once able to take PO reliably, will start PO Eliquis
#5. Large intra-thoracic hiatal hernia
- S/p laparoscopic repair, 04/2025. Management per surgery service
- Sub-optimal PO intake. Initiating TPN via PICC
#6. Shock.
- Patient developed hypotension post intubation. Suspect partly related to sedation medications as well as intubation with underlying mild pulmonary hypertension.
- Off levophed now
- Procalcitonin normal, discontinue Zosyn
- Echocardiogram reviewed, LVEF is 65 to 70%. BNP however significantly elevated.
DVT prophylaxis- Heparin infusion
GI prophylaxis-on pantoprazole
Updated family at bedside.
The patient saw Perri STUART/Dr. Colon on and Dr. Morales on 02/19/2025-recommend follow-up after hospitalization
Critical Care time 70 mins -- The patient is admitted for acute critical illness for the treatment of vital organ failure and/or prevention of further life-threatening conditions. Total care includes time spent in review of history, physical exam,
medications, hemodynamic/ventilator parameters, laboratory data, imaging and discussion with house staff, pharmacy, respiratory therapy, lead network engineer, and nursing.
Diagnostic data:
CXR 12/09/2024: Large hiatal hernia with increased left basilar opacity which may represent pneumonia or increased chronic atelectasis/scarring.
Chest x-ray 04/18/2025-extremely low lung volumes, tiny bilateral pleural effusions
Chest x-ray 04/18/2025-increased bibasilar opacifications may represent bilateral pleural effusions with adjacent atelectasis and/or pneumonia
VSE 11/28/2024: No aspiration.
CT chest 11/27/2024: Massive hiatal hernia containing entire stomach and mid transverse colon. Large amount of subpleural airspace consolidation in the left lower lobe adjacent to the hiatal hernia which is likely chronic compressive atelectasis and
scarring. Small to moderate-sized airspace consolidations in the superior segment of the right lower lobe and anterior segment of the right upper lobe which is most likely multifocal pneumonia. Moderate subpleural airspace consolidation in the right
lower lobe, either compressive atelectasis or pneumonia. Small bilateral pleural effusions. Moderate to severe air distention of the esophagus proximal to the hiatal hernia. Mild cardiomegaly. Severely exaggerated upper thoracic kyphosis and
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
CT chest 01/16/2025-interval resolution of previously seen anterior right upper lobe pneumonia, improved bilateral lower lobe and right middle lobe atelectasis/scarring
Echocardiogram 11/27/2024-EF 65-70%, mild aortic stenosis, SHANNAN 1.7 cm, PA systolic estimated 40-25
PFT 02/19/2025�Postbronchodilator FEV1 1.16 L, 73% of predicted.� FVC 1.57 L, 73% of predicted.� FEV1/FVC 74.��Lung volumes.� Total lung capacity reduced at 2.91 L, 67% of predicted. Diffusion capacity.� Reduced at 7.44, 43% of predicted, when
adjusted for alveolar volume to 68% of predicted.
6MWT 12/19/24: At rest, O2 100% on room air, heart rate 81. With ambulation, O2 aureliano 99%, max heart rate 134. 1/10 on dyspnea scale. Ambulated 300 feet.
Subjective Dataa
Subjective Data
Date of Service:
Date of Service: April 23, 2025
Subjective:
Patient was more lethargic earlier, more interactive after BiPAP. Appears otherwise comfortable
Review of Systems
Genitourinary: Other (Denies any new symptoms)
Objective Data
Data Reviewed
Vital Signs / I&O / Oxygen:
Vital Signs
Temp Pulse Resp BP Pulse Ox
97.6 F 71 18 98/52 98
04/23/25 08:00 04/23/25 07:49 04/23/25 07:49 04/23/25 06:00 04/23/25 07:49
Intake and Output
04/22/25 04/23/25 04/24/25
06:59 06:59 06:59
Intake Total 833.4 / 845.9 445.0 / 445.0
Output Total 1125 / 1125 255 / 255
Balance -291.6 / -279.1 190.0 / 190
SaO2 [CPAP] 96
SaO2 [A/C] 97
SaO2 98
Nasal Cannula flow liters per 2
minute
Physical Exam
General: Comfortable
HEENT: Normocephalic
Cardiovascular: S1-S2
Respiratory: Clear and Non-Labored Respirations
GI: Soft and Non Distended
Neurology: Awake and Alert
Skin: Warm
Labs/Micro/Reports
Lab Data
04/23/25 03:45
04/23/25 03:45
Laboratory Results
04/22/25 04/22/25 04/22/25
12:00 16:19 23:34
APTT Cancelled 55.1 H 94.7 H
04/23/25
05:08
APTT 112.4 H
Microbiology
04/21/25 09:39 Pleural Fluid Body Fluid Culture - Preliminary
No Growth After 18-24 Hours
04/21/25 09:39 Pleural Fluid Gram Stain - Final
04/20/25 15:33 Blood/Venous Blood Culture - Preliminary
No Growth in 48 hours- Final report to follow
04/20/25 15:47 Blood/Venous Blood Culture - Preliminary
No Growth in 48 hours- Final report to follow
04/20/25 15:33 Nose MRSA Screen - Final
No Methicillin Resistant Staphylococcus aureus isolated.
[2025-04-23] MEDS: MIRALAX PO (09:25)
[2025-04-23] MEDS: NSS (PRESERVATIVE FREE) 10 ML IV (09:29)
[2025-04-23] MEDS: PROTONIX IV 40 MG IV (09:29)
--- NOTE | 2025-04-23 09:49 | W.PN.CD ---
Today's Communication / Plan
-
Agree with plans
I reviewed risks of anticoagulation with patient and family and reviewed signs/symptoms of GI bleeding
We do not suspect active heart failure
Monitor respiratory status
Impression / Plan
-
Primary cardiology: Dr Cannon
Paroxysmal AFib
- Rate: was fast (but also sick) when in AF, in sinus now rate is fine. No rate control meds at this time.
- Rhythm: paroxysmal, currently in sinus, no antiarrhythmic meds at this time
- [id number] at leas 4 (age1, HTN, gender)
- Anticoagulation: currently on IV heparin, plans for eventual Eliquis at 2.5 mg BID (weight </= 60 kg and age of 79). If weight >60 kg then 5 mg BID.
Dyspnea:
- Moderate bilateral pleural effusions are improved on CXR 04/23/2025
- Had Lasix but then fluid
- We do not suspect active heart failure
- Monitor respiratory status
Paraesophageal hernia s/p laparoscopic repair on 04/15/[address] Caputo
- post-op management per surgery
- Improved, off pressors and is extubated
Tricuspid regurgitation, in 11/2024 was mod-severe but now (04/19/2024) improved tto mild to moderate, PASP est 44 mmHg
HTN
Acute on chronic anemia, monitor
Subjective: No CP or palpitations
Echo 04/19/25:
1. Ejection fraction is 65-70% by visual assesment.
2. Normal left ventricular size, wall thickness and systolic function. No regional wall motion abnormalities are seen.
3. Right ventricular size and systolic function are within normal limits.
4. Mild to moderate tricuspid regurgitation. Estimated pulmonary artery pressure of 44 mmHg assuming a right atrial pressure of 3 mmHg.
5. There appears to be a possible small patent foramen ovale.
6. Compared to the prior on 11/27/2024, the degree of tricuspid regurgitation has improved from moderate to severe to mild to moderate.
Physical Exam
Vital Signs/Labs
Vital Signs
Temp Pulse Resp BP Pulse Ox
97.6 F 71 18 98/52 98
04/23/25 08:00 04/23/25 07:49 04/23/25 07:49 04/23/25 06:00 04/23/25 07:49
04/22/25 04/23/25 04/24/25
06:59 06:59 06:59
Actual Weight 59.2 kg 58.9 kg
04/23/25 03:45
04/23/25 03:45
PT 14.3 Sec (11.4-14.6) 04/20/25 13:07
INR 1.08 04/20/25 13:07
APTT 112.4 Sec (23.4-35.0) H 04/23/25 05:08
Magnesium 2.0 mg/dl (1.6-2.3) 04/20/25 13:07
Triglycerides 146 mg/dl (10-149) 04/20/25 15:33
04/18/25 04/20/25 04/23/25
21:27 15:33 03:45
Uxj-[id number]-Rpecbztogsu Pept 1560 [id number]
Physical Exam
Constitutional: No acute distress
EENT: Anicteric
Cardiovascular: Rhythm & rate is regular and Pedal edema is absent
Respiratory: Respiratory effort normal and Lungs clear to auscul.
GI: Soft and Distention absent
Neuro/Psych: Alert
Data Reviewed
-
Date of Service: April 23, 2025
[2025-04-23 10:09] LABS: Venous Blood Gas B.E. -0.3 mmol/L (-4 to +4); Venous Blood Gas O2 Sat % 99.8 %
[2025-04-23 12:19] LABS: B.E. 1.3 mmol/L; HCO3 25.9 mmol/L (21-28); O2 Saturation % 96.3 % (94-98); PCO2 40 mmHg (32-35); PO2 63 mmHg (83-108)
[2025-04-23 13:14] LABS: APTT 70.5 Sec (23.4-35.0)
--- NOTE | 2025-04-23 13:14 | VATNOTE ---
Per radiology report, PICC in good position in the cavoatrial junction. PCN notified OK to use, to remove all ipsilateral IVs and change all IV tubing.
--- NOTE | 2025-04-23 13:36 | PTCARENOTE ---
pt VBG results showing further hypercapnia , Dr Moarles aware and pt was placed on NIV , she had a repeat ABG at 1200 and had improvement , she is awake and responsive , she is off of NIV for 2 hours and will reassess , pt is to be placed back on NIV
PRN with symptoms of hypercapnia and lethargy , family at bedside , pt also had picc line placed for TPN to start later today
--- NOTE | 2025-04-23 13:42 | W.PN.HOSP.TC ---
Today's Communication/Plan
-
Monitor vital signs see plan
Continue with BiPAP
PICC line for TPN
Can potentially transition to Eliquis once confirmed that she will not need PEG
Discussed with family
Assessment / Plan
Assessment / Plan
CT chest noncontrast:
1. Evaluation overall limited as a result of several factors, most prominent lack of intravenous contrast as well as prominent respiration/motion artifact.
2. Moderate left pleural effusion with accompanying left lower lobe consolidation/atelectasis, significantly increased in comparison to prior study.
3. Moderate to large right pleural effusion with accompanying right middle lobe and right lower lobe consolidations, significantly increased in comparison to prior study.
4. Dilated thoracic esophagus with layering fluid and/or fluid material, nasogastric tube extends into the stomach. Large hiatal hernia again noted.
5. No pneumothorax.
Acute hypoxic and hypercapnic respiratory failure
Restrictive lung disease
- Respiratory failure multifactorial due to combination of restrictive lung disease/atelectasis versus pneumonia/bilateral pleural effusion
- Patient was tried on mid flow > high flow > nonrebreather, ended up requiring intubation and mechanical ventilation. Status postextubation. Overnight was hypercapnic. Now on BiPAP. Pulmonary following
- CT chest and chest x-ray images reviewed
Status post right-sided Thora 04/21. Pocus on left side 04/22 with small effusion
Follow Thora culture; Pro-Mega negative. Agree with discontinuing antibiotic
Type IV paraesophageal hernia
Status post robotic assisted lap repair with gastropexy on 04/15/2025
- Postoperative care per general surgery
- RADHA drain in place with drainage decreasing
On clears, PICC line today to start patient on TPN. PEG tube discussion per surgery
Shock
- possible sedative versus rate control meds use related
- Already on broad-spectrum antibiotic
- On small dose of levophed , wean off as possible
Paroxysmal A-fib with RVR
Back in normal sinus rhythm, continue to monitor. Can likely start low-dose Cardizem if blood pressure tolerate
- Cardiology following
- Patient will be started on DOAC eventually ,current on heparin drip. Eventual transition to Eliquis if no definitive PEG tube discussion
Acute kidney injury - resolved
- Avoid nephrotoxic medication as possible
Diarrhea
- Possible side effect of Zosyn
- If persist and concern of new infection will require to check for C. difficile
Chronic normocytic anemia
Hyperlipidemia
Gastroesophageal reflux disease
Restless leg syndrome
Mild aortic stenosis
Osteoarthritis
History of inguinal hernia repair
History of small bowel resection in
History of right ankle surgery in
Full code
Heparin drip
General: On BiPAP
HEENT: Anicteric, pink conjunctiva
Cardiac: regular Rhythm and S1/S2
Lungs: Clear to auscultation, dull breath sounds
GI: Soft and Other (Surgical dressing ); Negative Distended
Musculoskeletal: Edema, Right Lower Extrem and Edema, Left Lower Extrem
Neuro: AAOX3
I spent a total of 53 minutes with the patient or on the floor. More than 50% of this time involved counseling and coordination of care.
Anticipated Discharge: > 48 hours
Subjective/Interval History
-
Date of Service: April 23, 2025
on bipap
Objective Data
-
Labs:
Laboratory Results
04/23/25 04/23/25 04/23/25
03:45 05:08 12:04
WBC 6.6
Hgb 9.8 L
Hct 30.5 L
Plt Count 160
APTT 112.4 H
HCO3 25.9
Sodium 137
Potassium 4.7
Chloride 104
Carbon Dioxide 27
BUN 21 H
Creatinine 0.7
Glucose 103 H
Calcium 8.4
04/23/25
12:44
WBC
Hgb
Hct
Plt Count
APTT 70.5 H
HCO3
Sodium
Potassium
Chloride
Carbon Dioxide
BUN
Creatinine
Glucose
Calcium
Vital Signs:
Vital Signs
Temp Pulse Resp BP Pulse Ox
97.6 F 88 23 93/58 94
04/23/25 08:00 04/23/25 13:10 04/23/25 13:10 04/23/25 12:00 04/23/25 13:10
I&O
04/22/25 04/23/25 04/24/25
06:59 06:59 06:59
Intake Total 833.4 / 845.9 445.0 / 456.0 77 / 77
Output Total 1125 / 1125 255 / 255 500 / 500
Balance -291.6 / -279.1 190.0 / 201 -423 / -423
--- NOTE | 2025-04-23 14:26 | W.PN.UPDATE ---
Update Note
Progress Note Update
Patient reevaluated post AVAPS. More awake alert, blood gas 7.42/40. Hypercapnia resolved, acidosis resolved.
AVAPS removed, patient awake, alert and comfortable without any distress.
Will give patient couple of hours of break off noninvasive ventilation and have a low threshold to resume if any signs of encephalopathy or difficulty breathing.
Continue nightly AVAPS and then as needed during daytime.
Additional critical care time spent 35 minutes.
[2025-04-23] MEDS: REQUIP PO (14:47)
--- NOTE | 2025-04-23 15:20 | CM ---
CM reviewed chart
Pt remains in ICU
Plan for picc/TPN
Pt previously accepted fo service by [facility]
Inpatient status since 04/20 per admission order
CM will continue to follow for dc planning
Discharge Disposition- anticipate home with [facility], follow for higher level and TPN needs
[2025-04-23] MEDS: HEPARIN 25000 UNITS/250 ML IV (16:32)
[2025-04-23 18:21] LABS: Glucose - Point of Care 84 mg/dl (70-99)
[2025-04-23] MEDS: NOVOLOG FLEXPEN-LOW RESISTANCE SC ×2 (18:24→23:40)
[2025-04-23] MEDS: REQUIP 2 MG PO (19:21)
--- NOTE | 2025-04-23 20:00 | PTCARENOTE ---
Rec'd pt in bed, family at bedside and updated on plan of care, pt oriented, cooperative, very weak, SR, short burst of LARISSA- self limiting, bp stable, weak distal pulses, + edema, skin warm/dry, hep gtt at 1200 units/hr, O2 2 liters nc, lungs decr,
enc to use IS- reaches 500, no cough, sat 96, hypo bowel sounds, no bm, abd round, soft, no n/v, took sip of h20 w/ pill- sunita well, left RADHA site dsg changed for serous fluid,purewick in place, bladder scanned for 174 ml
[2025-04-23 20:09] LABS: APTT 92.3 Sec (23.4-35.0)
[2025-04-23] MEDS: Parenteral Nutrition, Central 820 IV (20:50)
--- NOTE | 2025-04-23 21:00 | PTCARENOTE ---
tpn started at 34m/hr
[2025-04-23] MEDS: OCEAN, SALINE MIST 2 SPRAYS NASAL (21:49)
--- NOTE | 2025-04-23 22:03 | PTCARENOTE ---
placed on NIV Rate 18, TV 450, EPAP 6, 24% O2 by resp therapist
[2025-04-23 23:43] LABS: Glucose - Point of Care 110 mg/dl (70-99)
[2025-04-24] VITALS (24 sets, daily range): BP systolic 100–173; BP diastolic 53–94; BMI 22.7
--- NOTE | 2025-04-24 00:04 | PTCARENOTE ---
Sys reviewed, sunita NIV, bladder scanned for 242 ml, CHG bath done, linens changed
[2025-04-24 02:19] LABS: Hematocrit 25.9 % (37.0-47.0); Hemoglobin 8.3 g/dL (12.0-16.0); Mean Corp Hgb Conc. 32.0 g/dL (33.0-37.0); Mean Corpuscular Volume 94.5 fL (81.0-99.0); Platelet Count 169 10^3/uL (130-400); Red Cell Dist. Width 14.7 % (11.5-14.5)
[2025-04-24 02:20] LABS: Venous Blood Gas B.E. 1.7 mmol/L (-4 to +4); Venous Blood Gas O2 Sat % 99.8 %
[2025-04-24 02:26] LABS: APTT 93.5 Sec (23.4-35.0)
[2025-04-24 03:15] LABS: Blood Urea Nitrogen 20 mg/dl (7-17); Calcium 8.5 mg/dl (8.4-10.2); Carbon Dioxide 27 mmol/L (22-30); Chloride 105 mmol/L (98-107); Estimated Creatinine Clearance 61 ml/min; Glucose 121 mg/dl (70-99); Magnesium 1.9 mg/dl (1.6-2.3); Potassium 4.2 mmol/L (3.5-5.1); Sodium 138 mmol/L (135-145); Triglycerides 137 mg/dl (10-149); eGFR > 60.00
--- NOTE | 2025-04-24 03:51 | PTCARENOTE ---
sys reviewed, changes noted
[2025-04-24 05:15] LABS: Glucose - Point of Care 154 mg/dl (70-99)
[2025-04-24] MEDS: NOVOLOG FLEXPEN-LOW RESISTANCE 1 UNITS SC ×2 (05:26→13:04)
[2025-04-24] MEDS: DUONEB 3 ML INH ×4 (07:25→20:53)
--- NOTE | 2025-04-24 07:34 | W.PN.GS2 ---
Today's Communication / Plan
-
`
Assessment / Plan
-
Assessment: 79 y/o female POD #9 s/p robo assisted lap repair type IV PEH with gastropexy;EDG
h/o Hypertension, mild aortic stenosis, moderate to severe tricuspid valve regurgitation, restless legs, severe DJD with scoliosis
Afib with RVR on 04/20, started on AC and diltiazem (with improvement) -> sinus with occasional self limiting Afib
hypotension - resolved now off levophed
Hypoxia requiring intubation on 04/20, extubated less than 24h later; s/p right thoracentesis 04/21
Hypercarbic respiratory failure improved with BIPAP
Plan: cautious resumption of full liquid diet and monitor PO intake
renew TPN
when medically stable discussed with patient's family strong consideration of placement of PEG tube to ensure adequate nutritional intake potentially
continue therapeutic AC from surgical standpoint; maintain heparin as will be deciding over next 24-48 consideration for PEG placement
Appreciate pulm/cardiology/hospitalist assistance with ongoing post op medical care
monitor RADHA outputs
protonix for GIp
Subjective Data
-
Date of Service: April 24, 2025
pt seen and examined
and son at bedside
much more alert and responsive today
voided overnight
passing flatus
denies abd pain
utilized bipap overnight
Objective Data
-
Intake and Output
04/23/25 04/24/25 04/25/25
06:59 06:59 06:59
Intake Total 445.0 / 456.0 637 / 637
Output Total 255 / 255 865 / 865
Balance 190.0 / 201 -228 / -228
Intake:
Oral fluids 50 / 50 50 / 50
IV fluids (Total) 295.0 / 306.0 281 / 281
cardizem 75.0 / 75.0
heparin 220 / 231 281 / 281
IV piggybacks 100 / 100 34 / 34
TPN/PPN 272 / 272
Output:
Drain Output (Total)
Left Upper Abdomen Elia-
Rouse
Urine, Voided 225 / 225 300 / 300
Straight cath output 500 / 500
Vital Signs
Temp Pulse Resp BP Pulse Ox
98.1 F 84 18 128/65 96
04/24/25 03:49 04/24/25 07:26 04/24/25 07:26 04/24/25 06:00 04/24/25 06:00
Lab Results
04/24/25 02:04
04/24/25 02:04
Calcium 8.5 mg/dl (8.4-10.2) 04/24/25 02:04
Phosphorus 2.7 mg/dl (2.5-4.5) 04/24/25 02:04
Magnesium 1.9 mg/dl (1.6-2.3) 04/24/25 02:04
Total Bilirubin 0.9 mg/dl (0.2-1.3) 04/20/25 15:33
AST 36 U/L (14-36) 04/20/25 15:33
ALT 16 U/L (0-35) 04/20/25 15:33
Alkaline Phosphatase 123 U/L (38-126) 04/20/25 15:33
Total Protein 6.0 g/dl (6.3-8.2) L 04/21/25 11:42
Albumin 3.6 g/dl (3.5-5.0) 04/20/25 15:33
Physical Exam
-
NAD AAOx3
ABD: soft, ND, NTTP
incisions with glue dressings
RADHA with serous fluid
Patient has a rodriguez catheter: No
[2025-04-24] MEDS: MIRALAX 17 GRAMS PO (08:06)
[2025-04-24] MEDS: NSS (PRESERVATIVE FREE) 10 ML IV (08:06)
[2025-04-24] MEDS: PROTONIX IV 40 MG IV (08:07)
--- NOTE | 2025-04-24 09:00 | PTCARENOTE ---
Rec'd pt at 0730 awake resting in bed. Alert. Rec'd pt initally on NIV at change of shift and at 0745 changed over to 2l nc with sats of 92-94%. Once NIV off- able to talk. Voice is soft but clear and conversation is appropriate. Denies dizziness,
headache pain or discomfort. Skin is pale pink wm and dry. Respirs are shallow and tachypnic but non-labored on the 2L nc. BS are decreased mostly at the bases. Coughing is somewhat weak but able to cough up small amts of whitish secretions using
the yankeur to orally suction herself. Encouraged to IS hourly and is getting about 500ml on IS. R post chest old thoracentsis site intitally with dressing that was D+I. Removed at [address] Morales in and ultrasounded both sides of her lungs at
the bedside. Monitor SR -ST with PAC's. HR mostly in the 90's but will have frequent burst of tachycardia up into the 130-140's the does not stay sustained. + pulses. Edema as noted. Tr on LE and +1 Upper extrem. VS as documented. ABd is soft with
hypoactive BS. Did take Miralax this am. Dr. Caputo in and upgraded her diet to Full liquids. Encouraged to eat. Is taking small sips of liquids without c/o difficulty swallowing and no coughing noted with oral intake. Abd 'stab' incisions from
surgery present- appoximated with surgical adhesive present, Sl ecchymosis around sites. L lat abd RADHA drain with serous drainage to bulb suction. Dressing over is D+I. Pt denies need to void but did void on previous shift. Pam care given and new
purewick placed. R arm DL picc site wnl. IV Heparin infusing at 1200 units/hr and TPN at 34 ml/hr via PICC L arm with ints x2 as documented. Sites wnl. at 0815 pt assisted oob to the chair with assist of 2 and rolling walker. Gait is weak but able
to bear wt. Currently sitting oob in the chair. Call licea in reach. Dr. Caputo in and updated pt and pts and on who are at the bedside.
--- NOTE | 2025-04-24 09:46 | W.PN.CD ---
Addendum entered and electronically signed by Kaden Cannon MD 04/24/25 13:20:
Patient seen and examined in collaboration with [employer] T[employer]; agree with below.
- Will start low-dose short acting Cardizem 30 mg TID.
- Continue heparin drip; eventual change to Eliquis.
- Continue ekg monitor; will follow.
Original Note:
Today's Communication / Plan
-
Add PO diltiazem and follow BP and telemetry
Continue IV heparin for now, eventual transition to DOAC- see below
Monitor hgb post-op- decreased from yesterday
Impression / Plan
-
Primary cardiology: Dr Cannon
Paroxysmal AFib
- Rate: was fast when more acutely ill when in AF and was on IV diltiazem. Generally in sinus now. However, brief runs of SVT/AT. Would add diltiazem and monitor. Will start with short-acting, BP acceptable now, but has been low at times.
- [id number] at least 4 (age1, HTN, gender)
- Anticoagulation: currently on IV heparin, plans for eventual Eliquis at 2.5 mg BID (weight </= 60 kg and age of 79). If weight >60 kg then 5 mg BID. Continuing heparin for now as PEG is in question.
Dyspnea:
- previously moderate bilateral pleural effusions are improved on CXR. CXR this AM: Small left pleural effusion. Findings suggestive of complete atelectasis of the right lower lobe with associated volume loss in the right hemithorax. Encourage IS.
- Had Lasix, but then fluid after developing CONNIE
- We do not suspect active heart failure
- Monitor respiratory status, on O2 by NC
Paraesophageal hernia s/p laparoscopic repair on 04/15/[address] Caputo
- post-op management per surgery
- there is consideration for PEG, currently on TPN
Anemia:
-monitor closely, as lower today
HTN: monitor with med adjustments
Tricuspid regurgitation, in 11/2024 was mod-severe but now (04/19/2024) improved tto mild to moderate, PASP est 44 mmHg
Subjective:
Feeling okay. SOB at times. Can maybe feel palps at times. and son at bedside.
Echo 04/19/25:
1. Ejection fraction is 65-70% by visual assessment.
2. Normal left ventricular size, wall thickness and systolic function. No regional wall motion abnormalities are seen.
3. Right ventricular size and systolic function are within normal limits.
4. Mild to moderate tricuspid regurgitation. Estimated pulmonary artery pressure of 44 mmHg assuming a right atrial pressure of 3 mmHg.
5. There appears to be a possible small patent foramen ovale.
6. Compared to the prior on 11/27/2024, the degree of tricuspid regurgitation has improved from moderate to severe to mild to moderate.
Physical Exam
Vital Signs/Labs
Vital Signs
Temp Pulse Resp BP Pulse Ox
97.8 F 97 27 138/69 94
04/24/25 07:45 04/24/25 08:00 04/24/25 08:00 04/24/25 08:00 04/24/25 08:00
04/23/25 04/24/25 04/25/25
06:59 06:59 06:59
Actual Weight 58.9 kg 58.2 kg
04/24/25 02:04
04/24/25 02:04
PT 14.3 Sec (11.4-14.6) 04/20/25 13:07
INR 1.08 04/20/25 13:07
APTT 93.5 Sec (23.4-35.0) H 04/24/25 02:04
Magnesium 1.9 mg/dl (1.6-2.3) 04/24/25 02:04
Triglycerides 137 mg/dl (10-149) 04/24/25 02:04
04/18/25 04/20/25 04/23/25
21:27 15:33 03:45
Dad-Y-Kyvlvsibhbq Pept [phone] [id number]
Physical Exam
Constitutional: No acute distress
EENT: Anicteric
Cardiovascular: Rhythm & rate is regular
Respiratory: Other (diminished to bases, on O2 by NC, mildly increased WOB)
Neuro/Psych: AO x 3
Data Reviewed
-
Date of Service: April 24, 2025
EKG: Other (SR, SVT runs)
Labs: Labs Reviewed by me
--- NOTE | 2025-04-24 10:05 | CM ---
Patient seen at bedside with family
Patient with PICC/TPN
remains on heparin
per note discussion of PEG
family deciding over next 24-48 consideration for PEG placement
referral in [facility] for [facility]
PLAN: anticipate home with [facility], CM to follow for needs
[2025-04-24] MEDS: SODIUM CHLORIDE 3% FOR INHALATION 1 VIAL INH ×3 (10:21→20:53)
[2025-04-24] MEDS: CARDIZEM 30 MG PO ×3 (10:42→22:11)
--- NOTE | 2025-04-24 10:42 | PTCARENOTE ---
Cardizem 30 mg po given as ordered. Pt took with few sips of juice. No issue noted with swallowing. HR mostly 90-105 but will continue with intermittent bursts up to the 120-140's. Pt asymptomatic with the bursts.
--- NOTE | 2025-04-24 10:44 | W.PN.INTV ---
Today's Communication / Plan
Recommendations
- Start hypertonic saline nebulized 3 times daily along with albuterol
- Chest physical therapy, increase activity as tolerated, sit in chair as tolerated, incentive spirometry
- Continue AVAPS nightly and when napping in addition to as needed
Assessment
-
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
and hypercapnia on BiPAP-pulmonary consulted for hypercapnia shortness of breath 04/19/2025.
04/20/10. Patient overnight developed worsening hypoxia initially required mid flow later on switched to high flow as well as nonrebreather. In view of worsening respiratory status, she was transferred to ICU and emergently intubated and
mechanically ventilated on 04/20/2025.
Paraesophageal hernia status post laparoscopic repair
Mild chronic hypercapnia-VBG 04/18/2025--62/69/7.23 and VBG 04/19/2025--62/158/7.27
Restrictive lung disease
Mild normocytic anemia-hemoglobin 10.7
Mild hyperglycemia
Conditions present prior to admission:
Hypertension.
Hyperlipidemia.
GERD.
Restless leg syndrome.
Mild aortic stenosis.
Paraesophageal hernia status postrepair this admission.
Arthritis. Right ankle surgery 2004. Inguinal hernia repair small bowel resection 2022.
04/24/25 overview: Patient not requiring any pressors, MAP of 102, saturating 91% on 2 L via nasal cannula. Rhythm appears to be normal sinus rhythm alternating with A-fib heart rate around 98 201. Current infusions TPN as well as heparin drip.
Assessment and plan:
#1. Acute encephalopathy with acute on chronic hypercapnic respiratory failure (04/23)
- Increased CO2 retention overnight, BIPAP initiated 04/23. Continued to have hypercapnia, switched to V60, AVAPS with significant improvement
- 04/24, AM VBG 7.38/46. Patient awake, alert. Off AVAPS now, saturating well on nasal cannula, sitting in chair
- Baseline severe restriction due to large hiatal hernia, kyphosis. Now post op atelectasis, pleura effusion and likely additional nocturnal hypoventilation. On incentive spirometry, patient barely able to pull in 500 ml.
- Sitting more in chair as tolerated, continue noninvasive positive pressure ventilation nightly and when napping in addition to as needed
- In view of right lower lobe atelectasis, initiate hypertonic saline 3% 3 times daily nebulized along with albuterol. Chest physical therapy
- Counseled again regarding use of incentive spirometry, PT, OT, increase activity as tolerated
#1a. Acute hypoxic and hypercapnic respiratory failure, worsened overnight (04/20/2025)
- Patient had been on mid flow, subsequently high flow and later on required nonrebreather in addition. Intubated on 04/21/2025- extubated 04/22/2025
- Bilateral pulmonary opacities concerning for atelectasis versus pneumonia along with bilateral pleural effusions. Also patient has baseline severe restrictive lung disease due to large hiatal hernia intrathoracic.
- Tolerated extubation well, currently saturating 99% on 4 L supplemental oxygen.
- Continues to be afebrile with normal WBC count. Pulmonary opacities more likely compressive atelectasis rather than pneumonia. Discontinued IV vancomycin since MRSA screen is negative. Procalcitonin negative, Zosyn discontinued.
#2. Bilateral pleural effusions, R>L
- Right sided thoracentesis, bedside, 04/21. Straw colored 500 ml fluid removed. LDH 153, transudate by LDH criterial. Borderline exudate by Protein criteria. Since she had received diuresis earlier, more like pseudo-exudate. Cultures negative so
far. Suspect related to volume overload considering elevated BNP as well.
- BNP >4000, ? related to HFpEF. Appears euvolemic on exam. Borderline blood pressure, holding off diuresis for now
- POCUS left side, 04/22, 04/24, Small effusion noted without a safe pocket for bedside thoracentesis.
- Serial CXR, if enlarging effusions, will re-consider thoracentesis
- Triglycerides low, rules out Chylothorax.
#3. Baseline severe restrictive disease
- Restrictive lung disease at baseline due to large hiatal hernia intrathoracic.
- At baseline patient has mild chronic hypercapnia due to the restrictive lung disease
#4. Paroxysmal atrial fibrillation with RVR
- Cardiology service on case, correspondence reviewed. Cardizem infusion switched to oral Cardizem
- Eliquis has been on hold, currently on heparin infusion
- Once able to take PO reliably, will start PO Eliquis
#5. Large intra-thoracic hiatal hernia
- S/p laparoscopic repair, 04/2025. Management per surgery service
- Sub-optimal PO intake. Initiated TPN via PICC on 04/23
- Discussions regarding tube feeding ongoing
#6. Shock.
- Patient developed hypotension post intubation. Suspect partly related to sedation medications as well as intubation with underlying mild pulmonary hypertension.
- Off levophed now
- Procalcitonin normal, discontinued Zosyn
- Echocardiogram reviewed, LVEF is 65 to 70%. BNP however significantly elevated.
DVT prophylaxis- Heparin infusion
GI prophylaxis-on pantoprazole
Updated family at bedside.
The patient saw Perri STUART/Dr. Colon on and Dr. Morales on 02/19/2025-recommend follow-up after hospitalization
Critical Care time 55 mins -- The patient is admitted for acute critical illness for the treatment of vital organ failure and/or prevention of further life-threatening conditions. Total care includes time spent in review of history, physical exam,
medications, hemodynamic/ventilator parameters, laboratory data, imaging and discussion with house staff, pharmacy, respiratory therapy, rice drier operator, and nursing.
Diagnostic data:
CXR 12/09/2024: Large hiatal hernia with increased left basilar opacity which may represent pneumonia or increased chronic atelectasis/scarring.
Chest x-ray 04/18/2025-extremely low lung volumes, tiny bilateral pleural effusions
Chest x-ray 04/18/2025-increased bibasilar opacifications may represent bilateral pleural effusions with adjacent atelectasis and/or pneumonia
VSE 11/28/2024: No aspiration.
CT chest 11/27/2024: Massive hiatal hernia containing entire stomach and mid transverse colon. Large amount of subpleural airspace consolidation in the left lower lobe adjacent to the hiatal hernia which is likely chronic compressive atelectasis and
scarring. Small to moderate-sized airspace consolidations in the superior segment of the right lower lobe and anterior segment of the right upper lobe which is most likely multifocal pneumonia. Moderate subpleural airspace consolidation in the right
lower lobe, either compressive atelectasis or pneumonia. Small bilateral pleural effusions. Moderate to severe air distention of the esophagus proximal to the hiatal hernia. Mild cardiomegaly. Severely exaggerated upper thoracic kyphosis and
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
CT chest 01/16/2025-interval resolution of previously seen anterior right upper lobe pneumonia, improved bilateral lower lobe and right middle lobe atelectasis/scarring
Echocardiogram 11/27/2024-EF 65-70%, mild aortic stenosis, SHANNAN 1.7 cm, PA systolic estimated 40-25
PFT 02/19/2025�Postbronchodilator FEV1 1.16 L, 73% of predicted.� FVC 1.57 L, 73% of predicted.� FEV1/FVC 74.��Lung volumes.� Total lung capacity reduced at 2.91 L, 67% of predicted. Diffusion capacity.� Reduced at 7.44, 43% of predicted, when
adjusted for alveolar volume to 68% of predicted.
6MWT 12/19/24: At rest, O2 100% on room air, heart rate 81. With ambulation, O2 aureliano 99%, max heart rate 134. 1/10 on dyspnea scale. Ambulated 300 feet.
Subjective Dataa
Subjective Data
Date of Service:
Date of Service: April 24, 2025
Subjective:
Patient comfortably sitting in chair today, in no acute distress.
Review of Systems
Genitourinary: Other (All 14 systems reviewed and negative except as stated above in the history of present illness.)
Objective Data
Data Reviewed
Vital Signs / I&O / Oxygen:
Vital Signs
Temp Pulse Resp BP Pulse Ox
97.8 F 97 20 165/78 92
04/24/25 07:45 04/24/25 10:22 04/24/25 10:22 04/24/25 09:00 04/24/25 10:00
Intake and Output
04/23/25 04/24/25 04/25/25
06:59 06:59 06:59
Intake Total 445.0 / 456.0 637 / 683 138 / 138
Output Total 255 / 255 865 / 865
Balance 190.0 / 201 -228 / -182 138 / 138
SaO2 [NIV (Non Invasive 97
Ventilation)]
SaO2 [CPAP] 96
SaO2 [A/C] 97
SaO2 92
Nasal Cannula flow liters per 2
minute
Physical Exam
General: Comfortable
HEENT: Normocephalic
Cardiovascular: S1-S2
Respiratory: Clear and Non-Labored Respirations
GI: Soft and Non Distended
Neurology: Awake and Alert
Skin: Warm
Labs/Micro/Reports
Lab Data
04/24/25 02:04
04/24/25 02:04
Laboratory Results
04/23/25 04/23/25 04/23/25
12:04 12:44 19:48
APTT 70.5 H 92.3 H
pH 7.42
pCO2 40 H
pO2 63 L
HCO3 25.9
O2 Delivery Level
04/24/25
02:04
APTT 93.5 H
pH
pCO2
pO2
HCO3
O2 Delivery Level
Microbiology
04/20/25 15:47 Blood/Venous Blood Culture - Preliminary
No Growth in 72 hours- Final report to follow
04/20/25 15:33 Blood/Venous Blood Culture - Preliminary
No Growth in 72 hours- Final report to follow
04/21/25 09:39 Pleural Fluid Body Fluid Culture - Preliminary
No Growth After 48 Hours
04/21/25 09:39 Pleural Fluid Gram Stain - Final
04/20/25 15:33 Nose MRSA Screen - Final
No Methicillin Resistant Staphylococcus aureus isolated.
--- NOTE | 2025-04-24 10:45 | PTCARENOTE ---
Remains sitting oob in the chair with family at the bedside. Overall appetite remains poor- pt states she is just not hungry. Did drink her Miralax in applejuice and is working on her Ensure clear but only took a spoonful or two of pudding and
sherbert. Denies nausea. Tolerating 2L with sats of 94%. Assisted pt on to the BSC for 350 mls of beverley/yellow urine. Talked at length about a PEG tube to pt and after has some questions. Dr. Lan in to see pt and updated. Call licea
in reach.
[2025-04-24] MEDS: HEPARIN 25000 UNITS/250 ML IV (11:40)
[2025-04-24 12:30] LABS: Glucose - Point of Care 185 mg/dl (70-99)
[2025-04-24] MEDS: REQUIP 2 MG PO (12:30)
--- NOTE | 2025-04-24 13:01 | W.PN.HOSP.TC ---
Today's Communication/Plan
-
Monitor vital signs see plan
Low-dose Cardizem
Wean oxygen as tolerated
Continue with AVAPS nightly or as needed
Continue with fulls, TPN
Heparin
Discussed with family
Assessment / Plan
Assessment / Plan
CT chest noncontrast:
1. Evaluation overall limited as a result of several factors, most prominent lack of intravenous contrast as well as prominent respiration/motion artifact.
2. Moderate left pleural effusion with accompanying left lower lobe consolidation/atelectasis, significantly increased in comparison to prior study.
3. Moderate to large right pleural effusion with accompanying right middle lobe and right lower lobe consolidations, significantly increased in comparison to prior study.
4. Dilated thoracic esophagus with layering fluid and/or fluid material, nasogastric tube extends into the stomach. Large hiatal hernia again noted.
5. No pneumothorax.
Acute hypoxic and hypercapnic respiratory failure
Restrictive lung disease
- Respiratory failure multifactorial due to combination of restrictive lung disease/atelectasis versus pneumonia/bilateral pleural effusion
- Patient was tried on mid flow > high flow > nonrebreather, ended up requiring intubation and mechanical ventilation. Status postextubation. Then was hypercapnic and was placed on BiPAP. Now on AVAPS nightly and when napping as needed.
Pulmonary following
- CT chest and chest x-ray images reviewed. Consistent with atelectasis. IS. Started on hypertonic saline
Status post right-sided Thora 04/21. Pocus on left side 04/22 with small effusion
Follow Thora culture; Pro-Mega negative. Agree with discontinuing antibiotic
Type IV paraesophageal hernia
Status post robotic assisted lap repair with gastropexy on 04/15/2025
- Postoperative care per general surgery
- RADHA drain in place with drainage decreasing
On fulls, also on TPN. PEG tube discussion per surgery
Shock
- possible sedative versus rate control meds use related
- Already on broad-spectrum antibiotic
- Shock resolved, weaned off Levophed
Paroxysmal A-fib with RVR
Back in normal sinus rhythm, continue to monitor. Started on low-dose Cardizem
- Cardiology following
- Patient will be started on DOAC eventually ,current on heparin drip. Eventual transition to Eliquis if no definitive PEG tube discussion
Acute kidney injury - resolved
- Avoid nephrotoxic medication as possible
Diarrhea
- Possible side effect of Zosyn
- If persist and concern of new infection will require to check for C. difficile
Chronic normocytic anemia
Hyperlipidemia
Gastroesophageal reflux disease
Restless leg syndrome
Mild aortic stenosis
Osteoarthritis
History of inguinal hernia repair
History of small bowel resection in
History of right ankle surgery in
Full code
Heparin drip
General: On nasal cannula
HEENT: Anicteric, pink conjunctiva
Cardiac: regular Rhythm and S1/S2
Lungs: Clear to auscultation, dull breath sounds
GI: Soft and Other (Surgical dressing ); Negative Distended
Musculoskeletal: Edema, Right Lower Extrem and Edema, Left Lower Extrem
Neuro: AAOX3
I spent a total of 52 minutes with the patient or on the floor. More than 50% of this time involved counseling and coordination of care.
Anticipated Discharge: > 48 hours
Subjective/Interval History
-
Date of Service: April 24, 2025
Denies pain
Objective Data
-
Labs:
Laboratory Results
04/24/25
02:04
WBC 6.2
Hgb 8.3 L
Hct 25.9 L
Plt Count 169
APTT 93.5 H
Sodium 138
Potassium 4.2
Chloride 105
Carbon Dioxide 27
BUN 20 H
Creatinine 0.6
Glucose 121 H
Calcium 8.5
Vital Signs:
Vital Signs
Temp Pulse Resp BP Pulse Ox
98.2 F 89 20 148/88 99
04/24/25 11:19 04/24/25 12:30 04/24/25 12:30 04/24/25 12:00 04/24/25 12:30
I&O
04/23/25 04/24/25 04/25/25
06:59 06:59 06:59
Intake Total 445.0 / 456.0 637 / 683 526 / 526
Output Total 255 / 255 865 / 865 350 / 350
Balance 190.0 / 201 -228 / -182 176 / 176
--- NOTE | 2025-04-24 14:00 | PTCARENOTE ---
Took some spoonfuls/sips of full liquid lunch- about 30%. Assisted on to the BSC- voided and had a small soft brown bm. Pt then assisted back to bed. VS as documented. Tolerated being oob well. Back in bed currently and if starts to nap will place
pt back on NIV. Family at the bedside. Call licea in reach.
--- NOTE | 2025-04-24 14:15 | PTCARENOTE ---
Pt was starting to doze so placed back on NIV for now 24%, TV 450, Rate 18, EPAP 6. Sats currently are 94%. Pt dozing. No other changes.
--- NOTE | 2025-04-24 15:03 | RESPNOTE ---
Respiratory: patient napped and wore AVAPS for fifty minutes tolerated well. Neb TX given with 3% NaCL and CPT done via Vest.
--- NOTE | 2025-04-24 15:14 | PTCARENOTE ---
Pt back on 2L NC as she is awake and does not want the mask on currently. Sats are 96%. Call licea in reach.
[2025-04-24] MEDS: OCEAN, SALINE MIST 2 SPRAYS NASAL (16:59)
--- NOTE | 2025-04-24 17:15 | PTCARENOTE ---
Assessment overall is unchanged. Remains on 2L nc with sats of 95%. Using Yankeur to suction her mouth for small amts of whitish secretions with coughing. Getting about 500 mls on IS. Monitor SR-ST- less bursts of rates to 140's since Leónzetyler po
started. VS as documented. Still taking small sips of liquids. Assisted oob to the BSC using a rolling walker. Voided yellow urine and has a small amt of soft brown stool. Currently sitting back oob in the chair. Call licea in reach and family at the
bedside.
[2025-04-24 18:00] LABS: Glucose - Point of Care 219 mg/dl (70-99)
--- NOTE | 2025-04-24 18:30 | PTCARENOTE ---
WOrking on dinner. Back oob to the bsc for urine and small amt of brown stool.
[2025-04-24] MEDS: NOVOLOG FLEXPEN-LOW RESISTANCE 2 UNITS SC (18:41)
--- NOTE | 2025-04-24 20:00 | PTCARENOTE ---
Appetite remains very limited at best- took in about 20% of dinner. Assisted back on to the bsc for yellow urine and a small amt of soft brown stool. Pam and back care given and pt then assisted back to bed with call licea in reach. Of note- family
came out to the nurses station at 1900 stating she was bleeding and worried that her IV had pulled out. Upon inspection pt found with large spot/area blood on her gown and on the chair- her PICC line was intact and site was wnl however an old
previous IV site on her R forearm had started to bleed. Pressure held over the site and new dressing applied. Skin care given. Pt then continuing to work on liquids. No other changes.
--- NOTE | 2025-04-24 20:15 | PTCARENOTE ---
Pt received start of shift, HR SR/ST w/ PACs on telemetry. Oriented. OOB to chair and commode x2 assist with rolling walker. 2L NC POX 95%. RADHA drain with serous output. Weak productive cough - pt using yankauer to suction self. Heparin and TPN
infusing as ordered. Encouraging IS. Family at bedside.
[2025-04-24] MEDS: Parenteral Nutrition, Central 900 IV (21:10)
[2025-04-24 21:11] LABS: Glucose - Point of Care 186 mg/dl (70-99)
[2025-04-24] MEDS: REQUIP 0.5 MG PO (22:10)
[2025-04-24] MEDS: NOVOLOG FLEXPEN-MODERATE RESISTANCE 3 UNITS SC (23:56)
[2025-04-25] VITALS (40 sets, daily range): BP systolic 92–173; BP diastolic 54–106; BMI 22.7
[2025-04-25 00:05] LABS: Glucose - Point of Care 200 mg/dl (70-99)
--- NOTE | 2025-04-25 01:16 | PTCARENOTE ---
PRN requip - see MAR. Pt placed on NIV by RT. Pt tolerating. Family staying the night.
[2025-04-25 04:12] LABS: Venous Blood Gas B.E. 5.8 mmol/L (-4 to +4); Venous Blood Gas O2 Sat % 99.6 %
[2025-04-25 04:13] LABS: Hematocrit 24.3 % (37.0-47.0); Hemoglobin 7.8 g/dL (12.0-16.0); Mean Corp Hgb Conc. 32.1 g/dL (33.0-37.0); Mean Corpuscular Volume 93.8 fL (81.0-99.0); Nucleated Red Blood Cells % 0 %; Platelet Count 166 10^3/uL (130-400); Red Cell Dist. Width 14.8 % (11.5-14.5)
[2025-04-25 04:29] LABS: APTT 92.5 Sec (23.4-35.0)
[2025-04-25 05:21] LABS: Blood Urea Nitrogen 18 mg/dl (7-17); Calcium 7.4 mg/dl (8.4-10.2); Carbon Dioxide 31 mmol/L (22-30); Chloride 110 mmol/L (98-107); Estimated Creatinine Clearance 61 ml/min; Glucose 142 mg/dl (70-99); Magnesium 1.7 mg/dl (1.6-2.3); Potassium 4.0 mmol/L (3.5-5.1); Sodium 140 mmol/L (135-145); eGFR > 60.00
[2025-04-25 05:23] LABS: Glucose - Point of Care 162 mg/dl (70-99)
[2025-04-25] MEDS: NOVOLOG FLEXPEN-MODERATE RESISTANCE 1 UNITS SC ×2 (06:02→23:10)
[2025-04-25] MEDS: CALCIUM GLUCONATE 100 IV (06:02)
[2025-04-25] MEDS: MAGNESIUM SULFATE 102 GRAMS IV (06:23)
[2025-04-25] MEDS: SODIUM PHOSPHATE 255 MEQ IV (06:23)
--- NOTE | 2025-04-25 06:47 | PTCARENOTE ---
Pt tolerated NIV through the night. Voided very large amount urine in bedpan. Passing gas. AM labs drawn and sent - results relayed to OBGYN NURSE. Mag, Ca, and Phos repletion. T+S ordered and drawn. and son at bedside.
[2025-04-25] MEDS: DUONEB 3 ML INH ×3 (07:08→19:49)
[2025-04-25] MEDS: SODIUM CHLORIDE 3% FOR INHALATION 1 VIAL INH ×3 (07:08→19:49)
--- NOTE | 2025-04-25 08:25 | W.PN.GS2 ---
Today's Communication / Plan
-
`
Assessment / Plan
-
Assessment: 79 y/o female POD #10 s/p robo assisted lap repair type IV PEH with gastropexy;EDG
h/o Hypertension, mild aortic stenosis, moderate to severe tricuspid valve regurgitation, restless legs, severe DJD with scoliosis
Afib with RVR on 04/20, started on AC and diltiazem (with improvement) -> sinus with occasional self limiting Afib
hypotension - resolved now off levophed
Hypoxia requiring intubation on 04/20, extubated less than 24h later; s/p right thoracentesis 04/21
Hypercarbic respiratory failure improved with BIPAP
hgb 7.8 - slow drift but no signs of active bleeding likely secondary to acute blood loose anemia from recent surgery/acute illness and dilutional with IVFs/blood draws
hypophosphatemia and low mag replaced
Plan: 1 unit pRBC transfusion today
full liquid diet and monitor PO intake/added ensure
renewed TPN with adjustments to electrolyte composition
patient and family agreeable to PEG placement - will add on to schedule for tomorrow with myself; advised that anticipate intubation for procedure given recent h/o respiratory failure but will review with anesthesia team
continue therapeutic AC from surgical standpoint; maintain heparin for now and will place on hold when timing for PEG tomorrow determined
Appreciate pulm/cardiology/hospitalist assistance with ongoing post op medical care
monitor RADHA outputs
protonix for GIp
Subjective Data
-
Date of Service: April 25, 2025
pt seen and examined
family at bedside
reportedly slept will with BiPAP
+void/BMs
sunita some fulls but poor appetite and complains of lack of taste of food
Objective Data
-
Intake and Output
04/24/25 04/25/25 04/26/25
06:59 06:59 06:59
Intake Total 637 / 683 1844 / 1893 49 / 49
Output Total 865 / 865 805 / 805
Balance -228 / -182 1039 / 1088 49 49
Intake:
Oral fluids 50 / 50 750 / 750
IV fluids (Total) 281 / 293 288 / 300
heparin 281 / 293 288 / 300
IV piggybacks 34 / 34
TPN/PPN 272 / 306 806 / 843 37 / 37
Output:
Drain Output (Total) 105 / 105
Left Upper Abdomen Elia- 105 / 105
Rouse
Urine, Voided 300 / 300 700 / 700
Straight cath output 500 / 500
Other:
Number of approximated LARGE 1
amounts of urine
Vital Signs
Temp Pulse Resp BP Pulse Ox
97.2 F 65 18 105/59 94
04/25/25 03:06 04/25/25 07:00 04/25/25 07:00 04/25/25 07:00 04/25/25 06:30
Lab Results
04/25/25 04:01
04/25/25 04:01
Calcium 7.4 mg/dl (8.4-10.2) L 04/25/25 04:01
Phosphorus 1.5 mg/dl (2.5-4.5) L 04/25/25 04:01
Magnesium 1.7 mg/dl (1.6-2.3) 04/25/25 04:01
Total Bilirubin 0.9 mg/dl (0.2-1.3) 04/20/25 15:33
AST 36 U/L (14-36) 04/20/25 15:33
ALT 16 U/L (0-35) 04/20/25 15:33
Alkaline Phosphatase 123 U/L (38-126) 04/20/25 15:33
Total Protein 6.0 g/dl (6.3-8.2) L 04/21/25 11:42
Albumin 3.6 g/dl (3.5-5.0) 04/20/25 15:33
Physical Exam
-
NAD AAOx3
mildly labored respirations
ABD: soft, ND, NTTP
RADHA with serous fluid
Patient has a rodriguez catheter: No
[2025-04-25] MEDS: PROTONIX IV 40 MG IV (08:28)
[2025-04-25] MEDS: CARDIZEM 30 MG PO ×3 (08:28→21:17)
[2025-04-25] MEDS: NSS (PRESERVATIVE FREE) 10 ML IV (08:28)
[2025-04-25] MEDS: MIRALAX 17 GRAMS PO (08:28)
--- NOTE | 2025-04-25 09:45 | PTCARENOTE ---
Rec'd care of patient at 0700. Patient drowsy; arousable to voice. Oriented x3. MAEx4. Pupils equal and reactive; +4mm. NSR with pacs and pvcs on tele. +Murmur. Trace anasarca. Palpable pulses. NIV off by RT. Placed on 2L nc. Lung sounds shallow,
diminished throughout. Labored, tachypneic. MANCIA. +BS. Appetite poor. TPN infusing through RDL PICC. Heparin infusing through second lumen. Plan discussed with [employer] Operator. Right thoracentesis at bedside, diuresis and transfuse 1 unit PRBCs.
--- NOTE | 2025-04-25 09:45 | CM ---
chart reviewed
CXR today
1 unit PRBC transfusion today
renewed TPN
PLAN: anticipate home with VÍCTORVN, CM to follow for needs
[2025-04-25] MEDS: LASIX 20 MG PO (11:44)
[2025-04-25] MEDS: REQUIP 2 MG PO (12:11)
[2025-04-25] MEDS: NOVOLOG FLEXPEN-MODERATE RESISTANCE SC ×2 (12:14→18:36)
[2025-04-25 12:27] LABS: Glucose - Point of Care 122 mg/dl (70-99)
--- NOTE | 2025-04-25 13:00 | W.PN.INTV ---
Today's Communication / Plan
Recommendations
- Lasix 20 mg p.o. x 1
- Replacing magnesium and phosphorus, follow-up labs later today.
- Add thiamine to TPN
Assessment
-
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
and hypercapnia on BiPAP-pulmonary consulted for hypercapnia shortness of breath 04/19/2025.
04/20/10. Patient overnight developed worsening hypoxia initially required mid flow later on switched to high flow as well as nonrebreather. In view of worsening respiratory status, she was transferred to ICU and emergently intubated and
mechanically ventilated on 04/20/2025.
Paraesophageal hernia status post laparoscopic repair
Mild chronic hypercapnia-VBG 04/18/2025--62/69/7.23 and VBG 04/19/2025--62/158/7.27
Restrictive lung disease
Mild normocytic anemia-hemoglobin 10.7
Mild hyperglycemia
Conditions present prior to admission:
Hypertension.
Hyperlipidemia.
GERD.
Restless leg syndrome.
Mild aortic stenosis.
Paraesophageal hernia status postrepair this admission.
Arthritis. Right ankle surgery 2004. Inguinal hernia repair small bowel resection 2022.
04/25/25 overview: Patient not requiring any pressor support. MAP above 65. Currently saturating mid 90s on 2 L supplemental oxygen. Current infusions TPN and heparin drip. Patient was on noninvasive positive pressure ventilation overnight.
Assessment and plan:
#1. Acute encephalopathy with acute on chronic hypercapnic respiratory failure (04/23)
- 04/23, increased CO2 retention overnight, BIPAP initiated . Continued to have hypercapnia, switched to V60, AVAPS with significant improvement
- 04/25, AM VBG 7.44/45. Patient awake, alert. Off AVAPS now, saturating well on nasal cannula, sitting in bed
- Baseline severe restriction due to large hiatal hernia, kyphosis. Now post op atelectasis, pleura effusion and likely additional nocturnal hypoventilation. On incentive spirometry, patient barely able to pull in 500 ml- 600ml.
- Sit more in chair as tolerated, continue noninvasive positive pressure ventilation nightly and when napping in addition to as needed
- In view of right lower lobe atelectasis, initiated hypertonic saline 3% 3 times daily nebulized along with albuterol. Chest physical therapy
- Counseled again regarding use of incentive spirometry, PT, OT, increase activity as tolerated
- Overall respiratory status continues to be tenuous. Prognosis guarded
- Patient scheduled for feeding tube placement 04/26. Patient might need prolonged ventilatory support postprocedure versus extubation to BiPAP. Updated family regarding tenuous respiratory status and possibly need for ventilation assistance
postprocedure.
#1a. Acute hypoxic and hypercapnic respiratory failure, worsened overnight (04/20/2025)
- Patient had been on mid flow, subsequently high flow and later on required nonrebreather in addition. Intubated on 04/21/2025- extubated 04/22/2025
- Bilateral pulmonary opacities concerning for atelectasis versus pneumonia along with bilateral pleural effusions. Also patient has baseline severe restrictive lung disease due to large hiatal hernia intrathoracic.
- Continues to be afebrile with normal WBC count. Pulmonary opacities more likely compressive atelectasis rather than pneumonia. Discontinued IV vancomycin since MRSA screen is negative. Procalcitonin negative, Zosyn discontinued.
#2. Bilateral pleural effusions, R>L
- Right sided thoracentesis, bedside, 04/21. Straw colored 500 ml fluid removed. LDH 153, transudate by LDH criterial. Borderline exudate by Protein criteria. Since she had received diuresis earlier, more like pseudo-exudate. Cultures negative so
far. Suspect related to volume overload considering elevated BNP as well.
- BNP >4000, ? related to HFpEF. Developing trace edema bilaterally. Give Lasix 20 mg p.o. x 1
- POCUS left side, 04/22, 04/24, Small effusion noted without a safe pocket for bedside thoracentesis.
- 08/14, right-sided repeat thoracentesis was attempted however very small fluid pocket and fluid could not be accessed safely, procedure aborted.
#3. Baseline severe restrictive disease
- Restrictive lung disease at baseline due to large hiatal hernia intrathoracic.
- At baseline patient has mild chronic hypercapnia due to the restrictive lung disease
#4. Paroxysmal atrial fibrillation with RVR
- Cardiology service on case, correspondence reviewed. Cardizem infusion switched to oral Cardizem
- Eliquis has been on hold, currently on heparin infusion
#5. Large intra-thoracic hiatal hernia
- S/p laparoscopic repair, 04/2025. Management per surgery service
- Sub-optimal PO intake. Initiated TPN via PICC on 04/23
- Scheduled for feeding tube placement on 04/26
#6. Shock.
- Patient developed hypotension post intubation. Suspect partly related to sedation medications as well as intubation with underlying mild pulmonary hypertension.
- Off levophed now
- Procalcitonin normal, discontinued Zosyn
- Echocardiogram reviewed, LVEF is 65 to 70%. BNP however significantly elevated.
DVT prophylaxis- Heparin infusion
GI prophylaxis-on pantoprazole
Updated family at bedside.
The patient saw Perri STUART/Dr. Colon on and Dr. Morales on 02/19/2025-recommend follow-up after hospitalization
Critical Care time 50 mins -- The patient is admitted for acute critical illness for the treatment of vital organ failure and/or prevention of further life-threatening conditions. Total care includes time spent in review of history, physical exam,
medications, hemodynamic/ventilator parameters, laboratory data, imaging and discussion with house staff, pharmacy, respiratory therapy, automated weaver, and nursing.
Diagnostic data:
CXR 12/09/2024: Large hiatal hernia with increased left basilar opacity which may represent pneumonia or increased chronic atelectasis/scarring.
Chest x-ray 04/18/2025-extremely low lung volumes, tiny bilateral pleural effusions
Chest x-ray 04/18/2025-increased bibasilar opacifications may represent bilateral pleural effusions with adjacent atelectasis and/or pneumonia
VSE 11/28/2024: No aspiration.
CT chest 11/27/2024: Massive hiatal hernia containing entire stomach and mid transverse colon. Large amount of subpleural airspace consolidation in the left lower lobe adjacent to the hiatal hernia which is likely chronic compressive atelectasis and
scarring. Small to moderate-sized airspace consolidations in the superior segment of the right lower lobe and anterior segment of the right upper lobe which is most likely multifocal pneumonia. Moderate subpleural airspace consolidation in the right
lower lobe, either compressive atelectasis or pneumonia. Small bilateral pleural effusions. Moderate to severe air distention of the esophagus proximal to the hiatal hernia. Mild cardiomegaly. Severely exaggerated upper thoracic kyphosis and
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
CT chest 01/16/2025-interval resolution of previously seen anterior right upper lobe pneumonia, improved bilateral lower lobe and right middle lobe atelectasis/scarring
Echocardiogram 11/27/2024-EF 65-70%, mild aortic stenosis, SHANNAN 1.7 cm, PA systolic estimated 40-25
PFT 02/19/2025�Postbronchodilator FEV1 1.16 L, 73% of predicted.� FVC 1.57 L, 73% of predicted.� FEV1/FVC 74.��Lung volumes.� Total lung capacity reduced at 2.91 L, 67% of predicted. Diffusion capacity.� Reduced at 7.44, 43% of predicted, when
adjusted for alveolar volume to 68% of predicted.
6MWT 12/19/24: At rest, O2 100% on room air, heart rate 81. With ambulation, O2 aureliano 99%, max heart rate 134. 1/10 on dyspnea scale. Ambulated 300 feet.
Subjective Dataa
Subjective Data
Date of Service:
Date of Service: April 25, 2025
Subjective:
Patient comfortably lying in bed in no acute distress.
Review of Systems
Genitourinary: Other (No new symptoms reported)
Objective Data
Data Reviewed
Vital Signs / I&O / Oxygen:
Vital Signs
Temp Pulse Resp BP Pulse Ox
97.8 F 65 19 142/67 95
04/25/25 11:06 04/25/25 12:00 04/25/25 12:00 04/25/25 12:00 04/25/25 11:35
Intake and Output
04/24/25 04/25/25 04/26/25
06:59 06:59 06:59
Intake Total 637 / 683 1844 / 1893 492 / 492
Output Total 865 / 865 805 / 805 200 / 200
Balance -228 / -182 1039 / 1088 292 / 292
SaO2 [NIV (Non Invasive 94
Ventilation)]
SaO2 [CPAP] 96
SaO2 [A/C] 97
SaO2 95
Nasal Cannula flow liters per 2
minute
Physical Exam
General: Comfortable
HEENT: Normocephalic
Cardiovascular: S1-S2
Respiratory: Clear and Non-Labored Respirations
GI: Soft and Non Distended
Neurology: Awake and Alert
Skin: Warm
Labs/Micro/Reports
Lab Data
04/25/25 04:01
04/25/25 18:00
Laboratory Results
04/25/25
04:01
APTT 92.5 H
Microbiology
04/21/25 09:39 Pleural Fluid Body Fluid Culture - Final
No Growth After 72 Hours
04/21/25 09:39 Pleural Fluid Gram Stain - Final
04/20/25 15:47 Blood/Venous Blood Culture - Preliminary
No Growth in 4 days- Final report to follow
04/20/25 15:33 Blood/Venous Blood Culture - Preliminary
No Growth in 4 days- Final report to follow
04/20/25 15:33 Nose MRSA Screen - Final
No Methicillin Resistant Staphylococcus aureus isolated.
--- NOTE | 2025-04-25 13:16 | W.PN.HOSP.TC ---
Today's Communication/Plan
-
Monitor vital signs and see plan
Replete electrolytes
TPN
Plan for PEG per surgery tomorrow
Wean oxygen as tolerated
Assessment / Plan
Assessment / Plan
CT chest noncontrast:
1. Evaluation overall limited as a result of several factors, most prominent lack of intravenous contrast as well as prominent respiration/motion artifact.
2. Moderate left pleural effusion with accompanying left lower lobe consolidation/atelectasis, significantly increased in comparison to prior study.
3. Moderate to large right pleural effusion with accompanying right middle lobe and right lower lobe consolidations, significantly increased in comparison to prior study.
4. Dilated thoracic esophagus with layering fluid and/or fluid material, nasogastric tube extends into the stomach. Large hiatal hernia again noted.
5. No pneumothorax.
Acute hypoxic and hypercapnic respiratory failure
Restrictive lung disease at baseline with mild chronic hypercapnia.
- Respiratory failure multifactorial due to combination of restrictive lung disease/atelectasis versus pneumonia/bilateral pleural effusion
- Patient was tried on mid flow > high flow > nonrebreather, ended up requiring intubation and mechanical ventilation. Status postextubation. Then was hypercapnic and was placed on BiPAP. Now on AVAPS nightly and when napping as needed.
Pulmonary following
- CT chest and chest x-ray images reviewed. Consistent with atelectasis. IS. Started on hypertonic saline
Status post right-sided Thora 04/21. Pocus on left side 04/22 with small effusion. Repeat right sided Thora was attempted on 04/25 however very small fluid pocket
Follow Thora culture; Pro-Mega negative. Agree with discontinuing antibiotic
Type IV paraesophageal hernia
Status post robotic assisted lap repair with gastropexy on 04/15/2025
- Postoperative care per general surgery
- RADHA drain in place with drainage decreasing
On fulls, also on TPN. PEG tube discussion per surgery, plan for PEG 04/26
Anemia, suspect anemia of chronic disease
1 unit PRBC 04/25 per surgery
monitor
Hypomagnesemia
Hypophosphatemia
Hypocalcemia
Shock
- possible sedative versus rate control meds use related
- Already on broad-spectrum antibiotic
- Shock resolved, weaned off Levophed
Paroxysmal A-fib with RVR
Back in normal sinus rhythm, continue to monitor. Started on low-dose Cardizem
- Cardiology following
- Patient will be started on DOAC eventually ,current on heparin drip. Eventual transition to Eliquis
Acute kidney injury - resolved
- Avoid nephrotoxic medication as possible
Diarrhea
- Possible side effect of Zosyn
- If persist and concern of new infection will require to check for C. difficile
Chronic normocytic anemia
Hyperlipidemia
Gastroesophageal reflux disease
Restless leg syndrome
Mild aortic stenosis
Osteoarthritis
History of inguinal hernia repair
History of small bowel resection in
History of right ankle surgery in
Full code
Heparin drip
General: On nasal cannula
HEENT: Anicteric, pink conjunctiva
Cardiac: regular Rhythm and S1/S2
Lungs: Clear to auscultation, dull breath sounds
GI: Soft and Other (Surgical dressing ); Negative Distended
Musculoskeletal: Edema, Right Lower Extrem and Edema, Left Lower Extrem
Neuro: AAOX3
I spent a total of 53 minutes with the patient or on the floor. More than 50% of this time involved counseling and coordination of care.
Anticipated Discharge: > 48 hours
Subjective/Interval History
-
Date of Service: April 25, 2025
denies pain
Objective Data
-
Labs:
Laboratory Results
04/25/25 04/25/25
04:01 18:00
WBC 5.7
Hgb 7.8 L
Hct 24.3 L
Plt Count 166
APTT 92.5 H
Sodium 140 Cancelled
Potassium 4.0 Cancelled
Chloride 110 H Cancelled
Carbon Dioxide 31 H Cancelled
BUN 18 H Cancelled
Creatinine 0.4 L Cancelled
Glucose 142 H Cancelled
Calcium 7.4 L Cancelled
Total Bilirubin Pending
AST Pending
ALT Pending
Alkaline Phosphatase Pending
Vital Signs:
Vital Signs
Temp Pulse Resp BP Pulse Ox
97.8 F 70 25 145/96 97
04/25/25 11:06 04/25/25 13:00 04/25/25 13:00 04/25/25 13:00 04/25/25 13:00
I&O
04/24/25 04/25/25 04/26/25
06:59 06:59 06:59
Intake Total 637 / 683 1844 / 1893 791 / 791
Output Total 865 / 865 805 / 805 200 / 200
Balance -228 / -182 1039 / 1088 591 / 591
--- NOTE | 2025-04-25 13:21 | PTCARENOTE ---
1 unit PRBCs transfused. VSS. CXR completed post thoracentesis; no pneumothorax. Heparin drip restarted per Ring Sorter. Repeat PTT ordered for 1900. Appetite remains poor. Patient agreeable to drink milkshake made with vanilla ensure.
[2025-04-25] MEDS: HEPARIN 25000 UNITS/250 ML IV (13:38)
--- NOTE | 2025-04-25 14:04 | PTCARENOTE ---
Patient assisted to bsc for bm and void. Transferred to chair following toileting.
--- NOTE | 2025-04-25 15:34 | W.PN.CD ---
Today's Communication / Plan
-
- Currently stable on telemetry; occasional PACs.
- Continue Cardizem 30 mg PO TID.
- Continuing heparin for now as PEG is planned for tomorrow.
Impression / Plan
-
Primary cardiology: Dr Cannon
Paroxysmal AFib
- Currently stable on telemetry; occasional PACs.
- Continue Cardizem 30 mg PO TID.
- [id number] at least 4 (age1, HTN, gender)
- Anticoagulation: currently on IV heparin, plans for eventual Eliquis at 2.5 mg BID (weight </= 60 kg and age of 79). If weight >60 kg then 5 mg BID.
- Continuing heparin for now as PEG is planned for tomorrow.
Paraesophageal hernia s/p laparoscopic repair on 04/15/[address] Caputo
- Continue post-op management per surgery
- PEG tomorrow; currently on TPN.
Anemia:
- Continue to monitor closely; slowly trending down.
HTN:
- Fairly controlled.
Tricuspid regurgitation - mild to moderate, PASP est 44 mmHg
Echo 04/19/25:
1. Ejection fraction is 65-70% by visual assessment.
2. Normal left ventricular size, wall thickness and systolic function. No regional wall motion abnormalities are seen.
3. Right ventricular size and systolic function are within normal limits.
4. Mild to moderate tricuspid regurgitation. Estimated pulmonary artery pressure of 44 mmHg assuming a right atrial pressure of 3 mmHg.
5. There appears to be a possible small patent foramen ovale.
6. Compared to the prior on 11/27/2024, the degree of tricuspid regurgitation has improved from moderate to severe to mild to moderate.
Physical Exam
Vital Signs/Labs
Vital Signs
Temp Pulse Resp BP Pulse Ox
97.5 F 74 22 160/85 98
04/25/25 13:17 04/25/25 14:07 04/25/25 14:07 04/25/25 14:00 04/25/25 14:07
04/24/25 04/25/25 04/26/25
06:59 06:59 06:59
Actual Weight 58.2 kg 58 kg
04/25/25 04:01
04/25/25 18:00
PT 14.3 Sec (11.4-14.6) 04/20/25 13:07
INR 1.08 04/20/25 13:07
APTT 92.5 Sec (23.4-35.0) H 04/25/25 04:01
Magnesium 1.7 mg/dl (1.6-2.3) 04/25/25 04:01
Triglycerides 137 mg/dl (10-149) 04/24/25 02:04
04/18/25 04/20/25 04/23/25
21:27 15:33 03:45
Hkz-[id number]-[id number] Pept 1560 4430 [id number]
Physical Exam
Constitutional: No acute distress and Comfortable
EENT: Anicteric
Cardiovascular: Rhythm & rate is regular, Pedal edema is absent, Systolic murmur present (/) and S1S2 is normal
Respiratory: Respiratory effort normal and Lungs clear to auscul.
GI: Soft
Neuro/Psych: AO x 3
Other: Skin (warm, dry, intact)
Data Reviewed
-
Date of Service: April 25, 2025
EKG: Tracing Personally Visualized and interpreted (Sinus rhythm, PACs)
Echo: Report Reviewed by me (LVEF 65-70%; mild to moderate TR, PASP 44 mmHg.)
Medical Tests (PFT, Pathology etc): Discussed with Nurse, Discussed with Patient and Discussed with Family ( and son at bedside)
Labs: Labs Reviewed by me
--- NOTE | 2025-04-25 16:30 | PTCARENOTE ---
Systems reviewed. No major changes from previous assessments. Using IS intermittently throughout shift. OOB in chair since 1400. PT at bedside. VSS.
[2025-04-25 18:47] LABS: Glucose - Point of Care 145 mg/dl (70-99)
[2025-04-25 18:59] LABS: APTT 54.4 Sec (23.4-35.0)
[2025-04-25 19:15] LABS: ALT (SGPT) 12 U/L (0-35); AST (SGOT) 23 U/L (14-36); Albumin 3.2 g/dl (3.5-5.0); Alkaline Phosphatase 91 U/L (38-126); Blood Urea Nitrogen 21 mg/dl (7-17); Calcium 8.8 mg/dl (8.4-10.2); Carbon Dioxide 32 mmol/L (22-30); Chloride 102 mmol/L (98-107); Estimated Creatinine Clearance 61 ml/min; Glucose 154 mg/dl (70-99); Magnesium 1.9 mg/dl (1.6-2.3); Potassium 4.4 mmol/L (3.5-5.1); Sodium 137 mmol/L (135-145); Total Protein 6.2 g/dl (6.3-8.2); eGFR > 60.00
--- NOTE | 2025-04-25 20:45 | PTCARENOTE ---
Pt received start of shift, HR SR/ST w/ PACs on telemetry. Oriented. OOB to chair and commode x2 assist with rolling walker. x2 small BM. 2L NC POX 95%. RADHA drain with serous output. Weak productive cough - pt using yankauer to suction self. Heparin
and TPN infusing as ordered. Encouraging IS. Family at bedside.
[2025-04-25] MEDS: REQUIP 0.5 MG PO (21:16)
[2025-04-25] MEDS: Parenteral Nutrition, Central 900 IV (21:17)
[2025-04-25 23:20] LABS: Glucose - Point of Care 151 mg/dl (70-99)
[2025-04-26] VITALS (30 sets, daily range): BP systolic 103–177; BP diastolic 60–108; PULSE 2–73; BMI 23.3
--- NOTE | 2025-04-26 02:18 | PTCARENOTE ---
Pt placed on NIV HS by RT, tolerating. PRN requip - see NOV. Heparin gtt stopped @ 0200 per order. TPN continuing to infuse.
[2025-04-26 03:44] LABS: APTT 37.8 Sec (23.4-35.0)
[2025-04-26 03:45] LABS: Hematocrit 28.7 % (37.0-47.0); Hemoglobin 9.6 g/dL (12.0-16.0); Mean Corp Hgb Conc. 33.4 g/dL (33.0-37.0); Mean Corpuscular Volume 90.0 fL (81.0-99.0); Nucleated Red Blood Cells % 0 %; Platelet Count 178 10^3/uL (130-400); Red Cell Dist. Width 16.2 % (11.5-14.5)
[2025-04-26 04:00] LABS: Blood Urea Nitrogen 19 mg/dl (7-17); Calcium 7.7 mg/dl (8.4-10.2); Carbon Dioxide 33 mmol/L (22-30); Chloride 105 mmol/L (98-107); Estimated Creatinine Clearance 61 ml/min; Glucose 114 mg/dl (70-99); Magnesium 1.8 mg/dl (1.6-2.3); Potassium 4.3 mmol/L (3.5-5.1); Sodium 139 mmol/L (135-145); eGFR > 60.00
[2025-04-26] MEDS: CALCIUM GLUCONATE 100 IV (04:36)
--- NOTE | 2025-04-26 05:19 | PTCARENOTE ---
Am labs drawn and sent, results relayed to NARCISO. Ca supplementation ordered and administered - see MAR.
[2025-04-26 06:09] LABS: Glucose - Point of Care 129 mg/dl (70-99)
[2025-04-26] MEDS: NOVOLOG FLEXPEN-MODERATE RESISTANCE SC ×3 (06:29→17:48)
[2025-04-26] MEDS: DUONEB 3 ML INH ×3 (07:50→19:59)
[2025-04-26] MEDS: SODIUM CHLORIDE 3% FOR INHALATION 1 VIAL INH ×3 (07:50→19:59)
[2025-04-26] MEDS: CARDIZEM PO (08:00)
[2025-04-26] MEDS: NSS (PRESERVATIVE FREE) 10 ML IV (08:32)
[2025-04-26] MEDS: PROTONIX IV 40 MG IV (08:32)
[2025-04-26] MEDS: FLUSH (NSS) 1 FLUSH IV (08:32)
[2025-04-26] MEDS: MIRALAX PO (08:33)
[2025-04-26] MEDS: CARDIZEM CD 120 MG PO (08:45)
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
--- NOTE | 2025-04-26 09:11 | W.PN.CD ---
Today's Communication / Plan
-
- Clinically stable from a cardiac standpoint; telemetry remains stable.
- Will change from Cardizem 30 mg PO TID to Cardizem CD 120 mg daily, which should be home dose.
- On heparin; PEG is planned for today.
- Transition to Eliquis 2.5 mg twice daily afterwards when able.
- Cardiology will remain available on an as-needed basis; outpatient follow-up with Cardiology.
Impression / Plan
-
Primary cardiology: Dr Cannon
Paroxysmal AFib
- Clinically stable from a cardiac standpoint; telemetry remains stable.
- Will change from Cardizem 30 mg PO TID to Cardizem CD 120 mg daily, which should be home dose.
- [id number] at least 4 (age1, HTN, gender)
- On heparin; PEG is planned for today.
- Transition to Eliquis 2.5 mg twice daily afterwards when able (weight </= 60 kg and age of 79).
Paraesophageal hernia s/p laparoscopic repair on 04/15/[address] Caputo
- Continue post-op management per surgery
- PEG today; currently on TPN.
Anemia:
- Hemoglobin currently stable..
HTN:
- Remains fairly controlled.
Tricuspid regurgitation - mild to moderate, PASP est 44 mmHg
- Will continue to follow as outpatient.
Echo 04/19/25:
1. Ejection fraction is 65-70% by visual assessment.
2. Normal left ventricular size, wall thickness and systolic function. No regional wall motion abnormalities are seen.
3. Right ventricular size and systolic function are within normal limits.
4. Mild to moderate tricuspid regurgitation. Estimated pulmonary artery pressure of 44 mmHg assuming a right atrial pressure of 3 mmHg.
5. There appears to be a possible small patent foramen ovale.
6. Compared to the prior on 11/27/2024, the degree of tricuspid regurgitation has improved from moderate to severe to mild to moderate.
Physical Exam
Vital Signs/Labs
Vital Signs
Temp Pulse Resp BP Pulse Ox
97.6 F 76 25 163/78 93
04/26/25 07:00 04/26/25 08:45 04/26/25 06:30 04/26/25 08:45 04/26/25 06:30
04/25/25 04/26/25 04/27/25
06:59 06:59 06:59
Actual Weight 58 kg 59.6 kg
04/26/25 03:23
04/26/25 03:23
PT 14.3 Sec (11.4-14.6) 04/20/25 13:07
INR 1.08 04/20/25 13:07
APTT 37.8 Sec (23.4-35.0) H 04/26/25 03:23
Magnesium 1.8 mg/dl (1.6-2.3) 04/26/25 03:23
Triglycerides 137 mg/dl (10-149) 04/24/25 02:04
04/18/25 04/20/25 04/23/25
21:27 15:33 03:45
[facility] Pept 1560 4430 4370
Physical Exam
Constitutional: No acute distress and Comfortable
EENT: Anicteric
Cardiovascular: Pedal edema is absent, Systolic murmur absent, Rhythm/rate is irregular and S1S2 is normal
Respiratory: Respiratory effort normal and Lungs clear to auscul.
GI: Soft
Neuro/Psych: AO x 3
Other: Skin (Warm, dry, intact)
Data Reviewed
-
Date of Service: April 26, 2025
EKG: Tracing Personally Visualized and interpreted (Telemetry: Atrial fibrillation)
Medical Tests (PFT, Pathology etc): Discussed with Nurse, Discussed with Patient and Discussed with Family ( and sons at bedside)
Labs: Labs Reviewed by me
Critical Care Time (in minutes): 34
--- NOTE | 2025-04-26 10:20 | PTCARENOTE ---
Voided and has a mod amt of soft brown BM on the bedpan. Partial CHG bath/amna care given. Calazime to buttocks. Report called to the GI lab and pt taken via bed to GI room 6. Report given to the GI lab/anesthesia staff. Pt anxious about procedure
and sl tearful. Support given. Family at the bedside in ICU and updated. TPN continues to infuse
[2025-04-26] MEDS: ANCEF 10 IV (10:34)
--- NOTE | 2025-04-26 10:37 | W.PN.INTV ---
Today's Communication / Plan
Recommendations
- Follow-up chest x-ray and venous blood gas in a.m.
Assessment
-
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
and hypercapnia on BiPAP-pulmonary consulted for hypercapnia shortness of breath 04/19/2025.
04/20/10. Patient overnight developed worsening hypoxia initially required mid flow later on switched to high flow as well as nonrebreather. In view of worsening respiratory status, she was transferred to ICU and emergently intubated and
mechanically ventilated on 04/20/2025.
Paraesophageal hernia status post laparoscopic repair
Mild chronic hypercapnia-VBG 04/18/2025--62/69/7.23 and VBG 04/19/2025--62/158/7.27
Restrictive lung disease
Mild normocytic anemia-hemoglobin 10.7
Mild hyperglycemia
Conditions present prior to admission:
Hypertension.
Hyperlipidemia.
GERD.
Restless leg syndrome.
Mild aortic stenosis.
Paraesophageal hernia status postrepair this admission.
Arthritis. Right ankle surgery 2004. Inguinal hernia repair small bowel resection 2022.
04/26/25 overview: Patient not requiring any pressor support. MAP above 65. Currently saturating 92% on 2 L supplemental oxygen. Current infusions TPN. Heparin drip on hold. Patient was on noninvasive positive pressure ventilation overnight.
Assessment and plan:
#1. Acute encephalopathy with acute on chronic hypercapnic respiratory failure (04/23)
- 04/23, increased CO2 retention overnight, BIPAP initiated . Continued to have hypercapnia, switched to V60, AVAPS with significant improvement
- 04/26, doing well on AVAPS nightly and nasal cannula during daytime.
- Baseline severe restriction due to large hiatal hernia, kyphosis. Now post op atelectasis, pleura effusion and likely additional nocturnal hypoventilation. On incentive spirometry, patient barely able to pull in 500 ml.
- Sit more in chair as tolerated, continue noninvasive positive pressure ventilation nightly and when napping in addition to as needed
- In view of right lower lobe atelectasis, continue hypertonic saline 3%, 3 times daily nebulized along with albuterol. Chest physical therapy
- Counseled again regarding use of incentive spirometry, PT, OT, increase activity as tolerated
- Overall respiratory status continues to be tenuous. Prognosis guarded
- Patient scheduled for feeding tube placement 04/26. Patient might need prolonged ventilatory support postprocedure versus extubation to BiPAP. Patient and family aware.
#1a. Acute hypoxic and hypercapnic respiratory failure, worsened overnight (04/20/2025)
- Patient had been on mid flow, subsequently high flow and later on required nonrebreather in addition. Intubated on 04/21/2025- extubated 04/22/2025
- Bilateral pulmonary opacities concerning for atelectasis versus pneumonia along with bilateral pleural effusions. Also patient has baseline severe restrictive lung disease due to large hiatal hernia intrathoracic.
- Continues to be afebrile with normal WBC count. Pulmonary opacities more likely compressive atelectasis rather than pneumonia. Off antibiotics now.
#2. Bilateral pleural effusions, R>L
- Right sided thoracentesis, bedside, 04/21. Straw colored 500 ml fluid removed. LDH 153, transudate by LDH criterial. Borderline exudate by Protein criteria. Since she had received diuresis earlier, more like pseudo-exudate. Cultures negative so
far. Suspect related to volume overload considering elevated BNP as well.
- BNP >4000, ? related to HFpEF. Developing trace edema bilaterally. Give Lasix 20 mg p.o. x 1
- POCUS left side, 04/22, 04/24, Small effusion noted without a safe pocket for bedside thoracentesis.
- 04/25, right-sided repeat thoracentesis was attempted however very small fluid pocket and fluid could not be accessed safely, procedure aborted.
#3. Baseline severe restrictive disease
- Restrictive lung disease at baseline due to large hiatal hernia intrathoracic.
- At baseline patient has mild chronic hypercapnia due to the restrictive lung disease
#4. Paroxysmal atrial fibrillation with RVR
- Cardiology service on case, correspondence reviewed. Cardizem infusion switched to oral Cardizem long acting formulation.
- Eliquis has been on hold, had been on heparin infusion, plan to resume Eliquis once feeding tube is in place and ready to be used.
#5. Large intra-thoracic hiatal hernia
- S/p laparoscopic repair, 04/2025. Management per surgery service
- Sub-optimal PO intake. Initiated TPN via PICC on 04/23
- Scheduled for feeding tube placement on 04/26
#6. Shock.
- Patient developed hypotension post intubation. Suspect partly related to sedation medications as well as intubation with underlying mild pulmonary hypertension.
- Off levophed now
- Procalcitonin normal, discontinued antibiotics
- Echocardiogram reviewed, LVEF is 65 to 70%. BNP however significantly elevated.
DVT prophylaxis- Heparin infusion (currently on hold for planned PEG tube placement later today)
GI prophylaxis-on pantoprazole
The patient saw [facility]/Dr. Colon on and Dr. Morales on 02/19/2025-recommend follow-up after hospitalization
Critical Care time 45 mins -- The patient is admitted for acute critical illness for the treatment of vital organ failure and/or prevention of further life-threatening conditions. Total care includes time spent in review of history, physical exam,
medications, hemodynamic/ventilator parameters, laboratory data, imaging and discussion with house staff, pharmacy, respiratory therapy, us marketing director, and nursing.
Diagnostic data:
CXR 12/09/2024: Large hiatal hernia with increased left basilar opacity which may represent pneumonia or increased chronic atelectasis/scarring.
Chest x-ray 04/18/2025-extremely low lung volumes, tiny bilateral pleural effusions
Chest x-ray 04/18/2025-increased bibasilar opacifications may represent bilateral pleural effusions with adjacent atelectasis and/or pneumonia
VSE 11/28/2024: No aspiration.
CT chest 11/27/2024: Massive hiatal hernia containing entire stomach and mid transverse colon. Large amount of subpleural airspace consolidation in the left lower lobe adjacent to the hiatal hernia which is likely chronic compressive atelectasis and
scarring. Small to moderate-sized airspace consolidations in the superior segment of the right lower lobe and anterior segment of the right upper lobe which is most likely multifocal pneumonia. Moderate subpleural airspace consolidation in the right
lower lobe, either compressive atelectasis or pneumonia. Small bilateral pleural effusions. Moderate to severe air distention of the esophagus proximal to the hiatal hernia. Mild cardiomegaly. Severely exaggerated upper thoracic kyphosis and
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
CT chest 01/16/2025-interval resolution of previously seen anterior right upper lobe pneumonia, improved bilateral lower lobe and right middle lobe atelectasis/scarring
Echocardiogram 11/27/2024-EF 65-70%, mild aortic stenosis, SHANNAN 1.7 cm, PA systolic estimated 40-25
PFT 02/19/2025�Postbronchodilator FEV1 1.16 L, 73% of predicted.� FVC 1.57 L, 73% of predicted.� FEV1/FVC 74.��Lung volumes.� Total lung capacity reduced at 2.91 L, 67% of predicted. Diffusion capacity.� Reduced at 7.44, 43% of predicted, when
adjusted for alveolar volume to 68% of predicted.
6MWT 12/19/24: At rest, O2 100% on room air, heart rate 81. With ambulation, O2 aureliano 99%, max heart rate 134. 1/10 on dyspnea scale. Ambulated 300 feet.
Subjective Dataa
Subjective Data
Date of Service:
Date of Service: April 26, 2025
Subjective:
Patient comfortably sitting in bed in no acute distress. Patient wore noninvasive positive pressure ventilation overnight, currently switched to nasal cannula.
Review of Systems
Genitourinary: Other (All 14 systems reviewed and negative except as stated above in the history of present illness.)
Objective Data
Data Reviewed
Vital Signs / I&O / Oxygen:
Vital Signs
Temp Pulse Resp BP Pulse Ox
97.6 F 88 29 177/92 92
04/26/25 07:00 04/26/25 10:08 04/26/25 10:08 04/26/25 10:08 04/26/25 10:08
Intake and Output
04/25/25 04/26/25 04/27/25
06:59 06:59 06:59
Intake Total 1844 / 1893 1595 / 1633 152 / 152
Output Total 805 / 805 805 / 805 330 / 330
Balance 1039 / 1088 790 / 828 -178 / -178
SaO2 [NIV (Non Invasive 94
Ventilation)]
SaO2 [CPAP] 96
SaO2 [A/C] 97
SaO2 92
Nasal Cannula flow liters per 2
minute
Physical Exam
General: Comfortable
HEENT: Normocephalic
Cardiovascular: S1-S2
Respiratory: Clear and Non-Labored Respirations
GI: Soft and Non Distended
Neurology: Awake and Alert
Skin: Warm
Labs/Micro/Reports
Lab Data
04/26/25 03:23
04/26/25 03:23
Laboratory Results
04/25/25 04/26/25
18:35 03:23
APTT 54.4 H 37.8 H
Microbiology
04/20/25 15:47 Blood/Venous Blood Culture - Final
No Growth - Final Report
04/20/25 15:33 Blood/Venous Blood Culture - Final
No Growth - Final Report
04/21/25 09:39 Pleural Fluid Body Fluid Culture - Final
No Growth After 72 Hours
04/21/25 09:39 Pleural Fluid Gram Stain - Final
04/20/25 15:33 Nose MRSA Screen - Final
No Methicillin Resistant Staphylococcus aureus isolated.
--- NOTE | 2025-04-26 11:04 | W.IMMPOSTOP ---
Addendum entered and electronically signed by Almas Caputo MD 05/14/25 16:23:
#[id number]
Original Note:
Surgical Immed Post Op Note
-
Primary Surgeon: Almas Caputo MD
Assisting Surgeon: Ry Marx MD
Pre-op Diagnosis: Dysphagia; need for enteral access
Post-op Diagnosis: same
Procedure Performed: EGD with PEG tube placement
Anesthesia Type: GETA
Specimen / Cultures: none
Estimated Blood Loss: minimal
Complications: none immediate
Operative Findings: Patulous, presbyesophagus with some liquid/food debris refluxing back from stomach. Friable mucosa but no ulceration. Pylorus patent and intubated. Duodenum unremarkable. 20 [place] PEG tube placed without complication.
Endoscopic confirmed placement and hemostasis.
Plan: Hold therapeutic anticoagulation until tomorrow a.m.
PEG tube clamped today
Okay for clear liquids postprocedure
Updated patient's family in ICU room
--- NOTE | 2025-04-26 11:50 | PTCARENOTE ---
1135 Returned from GI lab s/p PEG placement. L abd PEG tube at 2 cm carla at skin- Site wnl. Clamped. Pt is awake, talking. Denies pain. BORDEN. Currently on 3L nc with sats of 95%. Family at the bedside. Call licea in reach.
[2025-04-26 12:20] LABS: Glucose - Point of Care 129 mg/dl (70-99)
--- NOTE | 2025-04-26 12:30 | PTCARENOTE ---
Pt awake resting in bed. States she is more relaxed now that the procedure is over. Denies discomfort currently. Sats on 3L nc are 96%. VS as documented.
--- NOTE | 2025-04-26 12:53 | W.PN.HOSP.TC ---
Today's Communication/Plan
-
monitor vitals
see plan
PEG today
on NC now; wean o2 as tolertaed
NIV if sleeping
hold hepp gtt per surgery
Assessment / Plan
Assessment / Plan
CT chest noncontrast:
1. Evaluation overall limited as a result of several factors, most prominent lack of intravenous contrast as well as prominent respiration/motion artifact.
2. Moderate left pleural effusion with accompanying left lower lobe consolidation/atelectasis, significantly increased in comparison to prior study.
3. Moderate to large right pleural effusion with accompanying right middle lobe and right lower lobe consolidations, significantly increased in comparison to prior study.
4. Dilated thoracic esophagus with layering fluid and/or fluid material, nasogastric tube extends into the stomach. Large hiatal hernia again noted.
5. No pneumothorax.
Acute hypoxic and hypercapnic respiratory failure
Restrictive lung disease at baseline with mild chronic hypercapnia.
- Respiratory failure multifactorial due to combination of restrictive lung disease/atelectasis versus pneumonia/bilateral pleural effusion
- Patient was tried on mid flow > high flow > nonrebreather, ended up requiring intubation and mechanical ventilation. Status postextubation. Then was hypercapnic and was placed on BiPAP. Now on AVAPS nightly and when napping as needed.
Pulmonary following
- CT chest and chest x-ray images reviewed. Consistent with atelectasis. IS. Started on hypertonic saline
Status post right-sided Thora 04/21. Pocus on left side 04/22 with small effusion. Repeat right sided Thora was attempted on 04/25 however very small fluid pocket
Follow Thora culture; Pro-Mega negative. Agree with discontinuing antibiotic
Type IV paraesophageal hernia
Status post robotic assisted lap repair with gastropexy on 04/15/2025
- Postoperative care per general surgery
- RADHA drain in place with drainage decreasing
was on fulls and tpn. now s/p PEG 04/26.
Ambulatory dysfunction
Patient in need for hospital bed. patient requires frequent changes in body position and has an immediate need for a change in position and requires the head of the bed to be elevated more than 30 degrees to prevent aspiration
Anemia, suspect anemia of chronic disease
1 unit PRBC 04/25 per surgery
monitor
Hypomagnesemia
Hypophosphatemia
Hypocalcemia
Shock
- possible sedative versus rate control meds use related
- Already on broad-spectrum antibiotic
- Shock resolved, weaned off Levophed
Paroxysmal A-fib with RVR
Back in normal sinus rhythm, continue to monitor. Started on low-dose Cardizem
- Cardiology following
- Patient will be started on DOAC eventually ,current on heparin drip. Restart heparin drip 04/27 when okay with surgery. Eventual transition to Eliquis
Acute kidney injury - resolved
- Avoid nephrotoxic medication as possible
Diarrhea
- Possible side effect of Zosyn
- If persist and concern of new infection will require to check for C. difficile
Chronic normocytic anemia
Hyperlipidemia
Gastroesophageal reflux disease
Restless leg syndrome
Mild aortic stenosis
Osteoarthritis
History of inguinal hernia repair
History of small bowel resection in
History of right ankle surgery in
Full code
Heparin drip
General: On nasal cannula
HEENT: Anicteric, pink conjunctiva
Cardiac: regular Rhythm and S1/S2
Lungs: Clear to auscultation, dull breath sounds
GI: Soft and Other (Surgical dressing ); Negative Distended
Musculoskeletal: Edema, Right Lower Extrem and Edema, Left Lower Extrem
Neuro: AAOX3
I spent a total of 52 minutes with the patient or on the floor. More than 50% of this time involved counseling and coordination of care.
Anticipated Discharge: > 48 hours
Subjective/Interval History
-
Date of Service: April 26, 2025
no pain
Objective Data
-
Labs:
Laboratory Results
08/15/25
03:23
WBC 7.2
Hgb 9.6 L D
Hct 28.7 L
Plt Count 178
APTT 37.8 H
Sodium 139
Potassium 4.3
Chloride 105
Carbon Dioxide 33 H
BUN 19 H
Creatinine 0.4 L
Glucose 114 H
Calcium 7.7 L
Vital Signs:
Vital Signs
Temp Pulse Resp BP Pulse Ox
97.6 F 70 28 133/75 94
04/26/25 07:00 04/26/25 12:15 04/26/25 12:15 04/26/25 12:15 04/26/25 12:15
I&O
04/25/25 04/26/25 04/27/25
06:59 06:59 06:59
Intake Total 1844 / 1893 1595 / 1633 228 / 228
Output Total 805 / 805 805 / 805 330 / 330
Balance 1039 / 1088 790 / 828 -102 / -102
[2025-04-26] MEDS: TYLENOL 500 MG PO (13:57)
[2025-04-26] MEDS: REQUIP 2 MG PO (13:58)
--- NOTE | 2025-04-26 14:00 | PTCARENOTE ---
Pt has been doing well post PEG placement. Has been awake visiting with family. Respirs are unlabored on currently 2L nc with sats of 95%. VS as documented. L abd PEG site wnl. Clamped. Assisted oob to the BSC for yellow urine and then to the chair.
Used a rolling walker. Gait is weak but steady and needed mostly an assist of 1. Silicone border foam applied to bony prominence in her back as it caused soreness when sitting against the lid of the commode. Medicated with Tylenol 500 mg PO for c/o
L abd soreness at PEG site with getting oob. Taking pills with sips of liquids with no diff in swallowing. Family to order a clear liquid try for her. Call licea in reach. Family at the bedside.
--- NOTE | 2025-04-26 17:00 | PTCARENOTE ---
Resting oob in the chair. Assessment is unchanged. Still with some mild L upper abd discomfort at the PEG site. Site wnl. RADHA draining serous drainage. Tolerated 2L nc. Assisted oob to the BSC for yellow urine and a small amt of soft brown stool.
Pam care given and then pt assisted back into the chair. Family at the bedside. Call licea in reach. States she just wants to rest for a little. Plan is for Bipap at HS
[2025-04-26 17:57] LABS: Glucose - Point of Care 133 mg/dl (70-99)
--- NOTE | 2025-04-26 18:30 | PTCARENOTE ---
On BSC for urine and small amt of soft brown stool. Otherwise remains resting oob in the chair. Taking few sips of liquids. No changes in assessment.
[2025-04-26] MEDS: REQUIP 0.5 MG PO (21:31)
[2025-04-26] MEDS: Parenteral Nutrition, Central 900 IV (21:31)
[2025-04-27] VITALS (24 sets, daily range): BP systolic 88–167; BP diastolic 56–88; PULSE 2–88; O2SAT 94; BMI 24.0
[2025-04-27] MEDS: NOVOLOG FLEXPEN-MODERATE RESISTANCE SC ×4 (00:50→18:25)
[2025-04-27 00:59] LABS: Glucose - Point of Care 132 mg/dl (70-99)
[2025-04-27 04:29] LABS: Venous Blood Gas B.E. 9.0 mmol/L (-4 to +4); Venous Blood Gas O2 Sat % 98.2 %
[2025-04-27 04:30] LABS: Venous Blood Gas O2 Therapy O2
[2025-04-27 04:31] LABS: Hematocrit 29.4 % (37.0-47.0); Hemoglobin 9.6 g/dL (12.0-16.0); Mean Corp Hgb Conc. 32.7 g/dL (33.0-37.0); Mean Corpuscular Volume 91.0 fL (81.0-99.0); Nucleated Red Blood Cells % 0 %; Platelet Count 201 10^3/uL (130-400); Red Cell Dist. Width 15.4 % (11.5-14.5)
[2025-04-27 04:54] LABS: Blood Urea Nitrogen 22 mg/dl (7-17); Calcium 8.2 mg/dl (8.4-10.2); Carbon Dioxide 35 mmol/L (22-30); Chloride 98 mmol/L (98-107); Estimated Creatinine Clearance 61 ml/min; Glucose 117 mg/dl (70-99); Magnesium 1.9 mg/dl (1.6-2.3); Potassium 5.1 mmol/L (3.5-5.1); Sodium 134 mmol/L (135-145); eGFR > 60.00
--- NOTE | 2025-04-27 05:56 | PTCARENOTE ---
Pt received at 19:00, family at bedside. Pt Ox3, soft speech/poor vocal quality. Received on 2L NC, breath sounds diminished t/o. Pulse ox 93-97%. Bipap at night, 24/02. Tolerated overnight. PEG LUQ--2cm at the skin, placed 04/26. Small brown BM.
Ana urine. TPN continues as ordered. Safe environment maintained, call licea within reach, pt repositioned q2hrs. Family remains at bedside.
[2025-04-27] MEDS: NSS (PRESERVATIVE FREE) 10 ML IV ×2 (07:34→19:48)
[2025-04-27] MEDS: CARDIZEM CD 120 MG PO (07:34)
[2025-04-27] MEDS: MIRALAX PO (07:34)
[2025-04-27] MEDS: PROTONIX IV 40 MG IV ×2 (07:34→19:48)
[2025-04-27] MEDS: DUONEB 3 ML INH ×2 (08:03→14:31)
[2025-04-27] MEDS: SODIUM CHLORIDE 3% FOR INHALATION 1 VIAL INH ×2 (08:03→14:31)
[2025-04-27 08:06] LABS: Glucose - Point of Care 118 mg/dl (70-99)
--- NOTE | 2025-04-27 08:21 | PTCARENOTE ---
pt aaox3. soft spoken. states no pain. nc2l. breath sounds diminished. pt using i/s. tpn running as ordered. peg tube placement checked and flushed. pt family at bedside. reviewed pt condition and plan of care.
--- NOTE | 2025-04-27 09:49 | W.PN.INTV ---
Today's Communication / Plan
Recommendations
- Continue BiPAP 15 x 6 nightly and when napping, nasal O2 during daytime
- Transfer to IMU
- Await surgical recommendations regarding resumption of Eliquis
- Pulmonary team will continue to follow along
Assessment
-
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
and hypercapnia on BiPAP-pulmonary consulted for hypercapnia shortness of breath 04/19/2025.
04/20/10. Patient overnight developed worsening hypoxia initially required mid flow later on switched to high flow as well as nonrebreather. In view of worsening respiratory status, she was transferred to ICU and emergently intubated and
mechanically ventilated on 04/20/2025.
Paraesophageal hernia status post laparoscopic repair
Mild chronic hypercapnia-VBG 04/18/2025--62/69/7.23 and VBG 04/19/2025--62/158/7.27
Restrictive lung disease
Mild normocytic anemia-hemoglobin 10.7
Mild hyperglycemia
Conditions present prior to admission:
Hypertension.
Hyperlipidemia.
GERD.
Restless leg syndrome.
Mild aortic stenosis.
Paraesophageal hernia status postrepair this admission.
Arthritis. Right ankle surgery 2004. Inguinal hernia repair small bowel resection 2022.
04/27/25 overview: Patient not requiring any pressor support. MAP 90. Currently saturating 94% on 2 L supplemental oxygen. Current infusions TPN. Heparin drip on hold. Patient was on BiPAP overnight.
Assessment and plan:
#1. Acute encephalopathy with acute on chronic hypercapnic respiratory failure (04/23)
- 04/23, increased CO2 retention overnight, BIPAP initiated . Continued to have hypercapnia, switched to V60, AVAPS with significant improvement
- 04/26, doing well on AVAPS nightly and nasal cannula during daytime.
- 08/16. switched to BIPAP 15/6 nightly and when napping and Nasal canula day time. Doing well. Transfer to IMU.
- Baseline severe restriction due to large hiatal hernia, kyphosis. Now post op atelectasis, pleura effusion and likely additional nocturnal hypoventilation. On incentive spirometry, patient barely able to pull in 500 ml.
- Sit more in chair as tolerated, continue noninvasive positive pressure ventilation nightly and when napping in addition to as needed
- In view of right lower lobe atelectasis, continue hypertonic saline 3%, 3 times daily nebulized along with albuterol. Chest physical therapy
- Counseled again regarding use of incentive spirometry, PT, OT, increase activity as tolerated
- Overall respiratory status continues to be slowly improving.
#1a. Acute hypoxic and hypercapnic respiratory failure, worsened overnight (04/20/2025)
- Patient had been on mid flow, subsequently high flow and later on required nonrebreather in addition. Intubated on 04/21/2025- extubated 04/22/2025
- Bilateral pulmonary opacities concerning for atelectasis versus pneumonia along with bilateral pleural effusions. Also patient has baseline severe restrictive lung disease due to large hiatal hernia intrathoracic.
- Continues to be afebrile with normal WBC count. Pulmonary opacities more likely compressive atelectasis rather than pneumonia. Off antibiotics now.
#2. Bilateral pleural effusions, R>L
- Right sided thoracentesis, bedside, 04/21. Straw colored 500 ml fluid removed. LDH 153, transudate by LDH criterial. Borderline exudate by Protein criteria. Since she had received diuresis earlier, more like pseudo-exudate. Cultures negative so
far. Suspect related to volume overload considering elevated BNP as well.
- BNP >4000, ? related to HFpEF. Developing trace edema bilaterally. Give Lasix 20 mg p.o. x 1
- POCUS left side, 04/22, 04/24, Small effusion noted without a safe pocket for bedside thoracentesis.
- 04/25, right-sided repeat thoracentesis was attempted however very small fluid pocket and fluid could not be accessed safely, procedure aborted.
#3. Baseline severe restrictive disease
- Restrictive lung disease at baseline due to large hiatal hernia intrathoracic.
- At baseline patient has mild chronic hypercapnia due to the restrictive lung disease
#4. Paroxysmal atrial fibrillation with RVR
- Cardiology service on case, correspondence reviewed. Cardizem infusion switched to oral Cardizem long acting formulation.
- Eliquis has been on hold, had been on heparin infusion, plan to resume Eliquis once ok to take from surgery stand point.
#5. Large intra-thoracic hiatal hernia
- S/p laparoscopic repair, 04/2025. Management per surgery service
- Sub-optimal PO intake. Initiated TPN via PICC on 04/23
- s/p feeding tube placement 04/26.
#6. Shock.
- Patient developed hypotension post intubation. Suspect partly related to sedation medications as well as intubation with underlying mild pulmonary hypertension.
- Off levophed now
- Procalcitonin normal, discontinued antibiotics
- Echocardiogram reviewed, LVEF is 65 to 70%. BNP however significantly elevated.
DVT prophylaxis- Await Eliquis resumption.
GI prophylaxis-on pantoprazole
The patient saw Perri STUART/Dr. Colon on and Dr. Morales on 02/19/2025-recommend follow-up after hospitalization
Critical Care time 40 mins -- The patient is admitted for acute critical illness for the treatment of vital organ failure and/or prevention of further life-threatening conditions. Total care includes time spent in review of history, physical exam,
medications, hemodynamic/ventilator parameters, laboratory data, imaging and discussion with house staff, pharmacy, respiratory therapy, woodworking machine offbearer, and nursing.
Updated family at bedside
Diagnostic data:
CXR 12/09/2024: Large hiatal hernia with increased left basilar opacity which may represent pneumonia or increased chronic atelectasis/scarring.
Chest x-ray 04/18/2025-extremely low lung volumes, tiny bilateral pleural effusions
Chest x-ray 04/18/2025-increased bibasilar opacifications may represent bilateral pleural effusions with adjacent atelectasis and/or pneumonia
VSE 11/28/2024: No aspiration.
CT chest 11/27/2024: Massive hiatal hernia containing entire stomach and mid transverse colon. Large amount of subpleural airspace consolidation in the left lower lobe adjacent to the hiatal hernia which is likely chronic compressive atelectasis and
scarring. Small to moderate-sized airspace consolidations in the superior segment of the right lower lobe and anterior segment of the right upper lobe which is most likely multifocal pneumonia. Moderate subpleural airspace consolidation in the right
lower lobe, either compressive atelectasis or pneumonia. Small bilateral pleural effusions. Moderate to severe air distention of the esophagus proximal to the hiatal hernia. Mild cardiomegaly. Severely exaggerated upper thoracic kyphosis and
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
CT chest 01/16/2025-interval resolution of previously seen anterior right upper lobe pneumonia, improved bilateral lower lobe and right middle lobe atelectasis/scarring
Echocardiogram 11/27/2024-EF 65-70%, mild aortic stenosis, SHANNAN 1.7 cm, PA systolic estimated 40-25
PFT 02/19/2025�Postbronchodilator FEV1 1.16 L, 73% of predicted.� FVC 1.57 L, 73% of predicted.� FEV1/FVC 74.��Lung volumes.� Total lung capacity reduced at 2.91 L, 67% of predicted. Diffusion capacity.� Reduced at 7.44, 43% of predicted, when
adjusted for alveolar volume to 68% of predicted.
6MWT 12/19/24: At rest, O2 100% on room air, heart rate 81. With ambulation, O2 aureliano 99%, max heart rate 134. 1/10 on dyspnea scale. Ambulated 300 feet.
Subjective Dataa
Subjective Data
Date of Service:
Date of Service: April 27, 2025
Subjective:
Patient comfortably sitting in bed in no acute distress.
Review of Systems
Genitourinary: Other (All 14 systems reviewed and negative except as stated above in the history of present illness.)
Objective Data
Data Reviewed
Vital Signs / I&O / Oxygen:
Vital Signs
Temp Pulse Resp BP Pulse Ox
97.6 F 76 18 137/71 94
04/27/25 07:31 04/27/25 08:04 04/27/25 08:04 04/27/25 07:34 04/27/25 08:04
Intake and Output
04/26/25 04/27/25 04/28/25
06:59 06:59 06:59
Intake Total 1595 / 1633 1174 / 1212 506 / 506
Output Total 805 / 805 1560 / 1560
Balance 790 / 828 -386 / -348 506 / 506
SaO2 [NIV (Non Invasive 94
Ventilation)]
SaO2 [CPAP] 96
SaO2 [A/C] 97
SaO2 94
Nasal Cannula flow liters per 2
minute
Physical Exam
General: Comfortable
HEENT: Normocephalic
Cardiovascular: S1-S2
Respiratory: Clear and Non-Labored Respirations
GI: Soft and Non Distended
Neurology: Awake and Alert
Skin: Warm
Labs/Micro/Reports
Lab Data
04/27/25 04:16
04/27/25 04:16
Microbiology
04/20/25 15:47 Blood/Venous Blood Culture - Final
No Growth - Final Report
04/20/25 15:33 Blood/Venous Blood Culture - Final
No Growth - Final Report
04/21/25 09:39 Pleural Fluid Body Fluid Culture - Final
No Growth After 72 Hours
04/21/25 09:39 Pleural Fluid Gram Stain - Final
[2025-04-27 11:17] LABS: Glucose - Point of Care 126 mg/dl (70-99)
--- NOTE | 2025-04-27 11:25 | W.PN.GS2 ---
Addendum entered and electronically signed by Kaden Garrett MD 04/27/25 15:04:
I saw and examined the patient.
The DATA ENTRY EMAIL PROCESSOR's note was reviewed and I agree with the note.
Original Note:
Today's Communication / Plan
-
Start TF via PEG
Complete this bag of TPN then stop parenteral nutrition
Assessment / Plan
-
Assessment: 79 y/o female
POD #12 s/p robo assisted lap repair type IV PEH with gastropexy;EDG
h/o Hypertension, mild aortic stenosis, moderate to severe tricuspid valve regurgitation, restless legs, severe DJD with scoliosis
Afib with RVR on 04/20, started on AC and diltiazem (with improvement) -> sinus with occasional self limiting Afib
hypotension - resolved now off levophed
Hypoxia requiring intubation on 04/20, extubated less than 24h later; s/p right thoracentesis 04/21. Still requiring O2
Hypercarbic respiratory failure improved with BIPAP
H/H stable s/p transfusion
EGD with PEG placement on 04/26/25 Patulous, presbyesophagus with some liquid/food debris refluxing back from stomach noted
Plan: Ok to resume PO Eliquis
Ok for clears
complete this bag of TPN, then stop
start TF diet via PEG with osmo 1.2, appreciate nutrition rates. 20ml/hr through today, then will begin advancing to goal tomorrow
Appreciate pulm/cardiology/hospitalist assistance with ongoing post op medical care
monitor RADHA outputs
protonix for GIp
Subjective Data
-
Date of Service: April 27, 2025
Pt seen and examined at bedside with Dr Garrett. Denies n/v. OOB to chair. and son present, updated on care. Passing flatus. Denies distention
Objective Data
-
Intake and Output
04/26/25 04/27/25 04/28/25
06:59 06:59 06:59
Intake Total 1595 / 1633 1174 / 1212 582 / 582
Output Total 805 / 805 1560 / 1560
Balance 790 / 828 -386 / -348 582 / 582
Intake:
Oral fluids 240 / 240 300 / 300 400 / 400
IV fluids (Total) 208 / 208
heparin / 208
TPN/PPN 897 / 935 874 / 912 152 / 152
Amount instilled into GI Tube (
Total)
Gastrostomy
Blood Product Amount Infused ( 250 / 250
mL)
Packed Rbc Leukoreduced Unit 250 / 250
[id number]
Output:
Drain Output (Total) 105 / 105 60 / 60
Left Upper Abdomen Elia- 105 / 105 60 / 60
Rouse
Urine, Voided 700 / 700 1500 / 1500
Other:
Number of approximated SMALL 1
amounts of urine
Number of approximated MODERATE 1 1 1
amounts of urine
Number of approximated LARGE 1
amounts of urine
How many times incontinent 1
MODERATE amount urine
Vital Signs
Temp Pulse Resp BP Pulse Ox
97.6 F 78 30 148/81 95
04/27/25 07:31 04/27/25 10:00 04/27/25 10:00 04/27/25 10:00 04/27/25 10:00
Lab Results
04/27/25 04:16
04/27/25 04:16
Calcium 8.2 mg/dl (8.4-10.2) L 04/27/25 04:16
Phosphorus 4.6 mg/dl (2.5-4.5) H 04/27/25 04:16
Magnesium 1.9 mg/dl (1.6-2.3) 04/27/25 04:16
Total Bilirubin 0.6 mg/dl (0.2-1.3) 04/25/25 18:35
AST 23 U/L (14-36) 04/25/25 18:35
ALT 12 U/L (0-35) 04/25/25 18:35
Alkaline Phosphatase 91 U/L (38-126) 04/25/25 18:35
Total Protein 6.2 g/dl (6.3-8.2) L 04/25/25 18:35
Albumin 3.2 g/dl (3.5-5.0) L 04/25/25 18:35
Physical Exam
-
NAD AAOx3
SOB with covnersation
ABD: soft, ND, NTTP
PEG with mild surrounding tenderness, no erythema
RADHA with serous fluid
[2025-04-27] MEDS: ELIQUIS 2.5 MG TUBE ×2 (11:54→20:53)
[2025-04-27] MEDS: REQUIP 2 MG PO (11:54)
--- NOTE | 2025-04-27 12:09 | W.PN.HOSP.TC ---
Today's Communication/Plan
-
Monitor vital signs see plan
Start tube feeds through PEG if okay with surgery
Eliquis
Currently on last last bag of TPN
Wean oxygen as tolerated, will need home O2 evaluation prior to discharge
Discussed with family at bedside
Assessment / Plan
Assessment / Plan
CT chest noncontrast:
1. Evaluation overall limited as a result of several factors, most prominent lack of intravenous contrast as well as prominent respiration/motion artifact.
2. Moderate left pleural effusion with accompanying left lower lobe consolidation/atelectasis, significantly increased in comparison to prior study.
3. Moderate to large right pleural effusion with accompanying right middle lobe and right lower lobe consolidations, significantly increased in comparison to prior study.
4. Dilated thoracic esophagus with layering fluid and/or fluid material, nasogastric tube extends into the stomach. Large hiatal hernia again noted.
5. No pneumothorax.
Acute hypoxic and hypercapnic respiratory failure
Restrictive lung disease at baseline with mild chronic hypercapnia.
- Respiratory failure multifactorial due to combination of restrictive lung disease/atelectasis versus pneumonia/bilateral pleural effusion
- Patient was tried on mid flow > high flow > nonrebreather, ended up requiring intubation and mechanical ventilation. Status postextubation. Then was hypercapnic and was placed on BiPAP. cw bipap nightly and when napping as needed. Pulmonary
following
- CT chest and chest x-ray images reviewed. Consistent with atelectasis. IS. Started on hypertonic saline
Status post right-sided Thora 04/21. Pocus on left side 04/22 with small effusion. Repeat right sided Thora was attempted on 04/25 however very small fluid pocket
Follow Thora culture; Pro-Mega negative. Agree with discontinuing antibiotic
Type IV paraesophageal hernia
Status post robotic assisted lap repair with gastropexy on 04/15/2025
- Postoperative care per general surgery
- RADHA drain in place with drainage decreasing
Was on TPN. now s/p PEG 04/26. Start tube feeds through PEG 04/27
Ambulatory dysfunction
Patient in need for hospital bed. patient requires frequent changes in body position and has an immediate need for a change in position and requires the head of the bed to be elevated more than 30 degrees to prevent aspiration
Discussed with spouse, wants to rather take patient home. Denies rehab
Anemia, suspect anemia of chronic disease
1 unit PRBC 04/25 per surgery
monitor
Hypomagnesemia
Hypophosphatemia
Hypocalcemia
Shock
- possible secondary to sedation medication and postintubation
- Shock resolved, weaned off Levophed
Paroxysmal A-fib with RVR
Back in normal sinus rhythm, continue to monitor. Started on Cardizem
- Cardiology following
start Eliquis when okay with surgery
Acute kidney injury - resolved
- Avoid nephrotoxic medication as possible
Diarrhea
- Possible side effect of Zosyn
resolved
Chronic normocytic anemia
Hyperlipidemia
Gastroesophageal reflux disease
Restless leg syndrome
Mild aortic stenosis
Osteoarthritis
History of inguinal hernia repair
History of small bowel resection in
History of right ankle surgery in
Full code
eliquis
General: On nasal cannula
HEENT: Anicteric, pink conjunctiva
Cardiac: regular Rhythm and S1/S2
Lungs: Clear to auscultation, dull breath sounds
GI: Soft and Other (Surgical dressing ); Negative Distended
Musculoskeletal: Edema, Right Lower Extrem and Edema, Left Lower Extrem
Neuro: AAOX3
I spent a total of 53 minutes with the patient or on the floor. More than 50% of this time involved counseling and coordination of care.
Anticipated Discharge: 24 - 48 hours
Subjective/Interval History
-
Date of Service: April 27, 2025
Denies pain
Objective Data
-
Labs:
Laboratory Results
04/27/25
04:16
WBC 9.2
Hgb 9.6 L
Hct 29.4 L
Plt Count 201
Sodium 134 L
Potassium 5.1
Chloride 98
Carbon Dioxide 35 H
BUN 22 H
Creatinine 0.5 L
Glucose 117 H
Calcium 8.2 L
Vital Signs:
Vital Signs
Temp Pulse Resp BP Pulse Ox
97.7 F 78 30 148/81 95
04/27/25 11:38 04/27/25 10:00 04/27/25 10:00 04/27/25 10:00 04/27/25 10:00
I&O
04/26/25 04/27/25 04/28/25
06:59 06:59 06:59
Intake Total 1595 / 1633 1174 / 1212 582 / 582
Output Total 805 / 805 1560 / 1560
Balance 790 / 828 -386 / -348 582 / 582
[2025-04-27 18:35] LABS: Glucose - Point of Care 138 mg/dl (70-99)
[2025-04-27] MEDS: ZOFRAN 4 MG IV (19:03)
--- NOTE | 2025-04-27 19:50 | PTCARENOTE ---
Received at 19:00, family at bedside. Upon initial assessment, pt c/o nausea. TF infusing via PEG at 20ml/hr. Residual from PEG = 400ml curdled brown liquid. House provider and general surgery updated. TF placed on hold 19:00, x1 dose of protonix
ordered and given. House provider to bedside, plan to hold TF x2hrs and restart at 10ml/hr, pt and family updated.
[2025-04-27] MEDS: SODIUM CHLORIDE 3% FOR INHALATION INH (20:21)
[2025-04-27] MEDS: DUONEB INH (20:21)
[2025-04-27] MEDS: REQUIP 0.5 MG PO (20:53)
[2025-04-27 21:15] LABS: Glucose - Point of Care 120 mg/dl (70-99)
--- NOTE | 2025-04-27 23:54 | PTCARENOTE ---
Pt anxious regarding restarting TF, requested that it wait until she was asleep. TF restarted at 22:00, PEG flushed and no residual at that time. Pt c/o nausea when respiratory attempted to place her on the bipap shortly after TF was restarted, when
I went in to reassess, she denied nausea. Pt repositioned in bed, continues to deny nausea at this time. TF continues at 10ml/hr.
[2025-04-28] VITALS (19 sets, daily range): BP systolic 93–145; BP diastolic 49–120; BMI 22.7
[2025-04-28 01:05] LABS: Glucose - Point of Care 104 mg/dl (70-99)
[2025-04-28] MEDS: NOVOLOG FLEXPEN-MODERATE RESISTANCE SC ×4 (01:24→18:25)
[2025-04-28 04:28] LABS: Hematocrit 30.3 % (37.0-47.0); Hemoglobin 9.8 g/dL (12.0-16.0); Mean Corp Hgb Conc. 32.3 g/dL (33.0-37.0); Mean Corpuscular Volume 92.4 fL (81.0-99.0); Nucleated Red Blood Cells % 0 %; Platelet Count 221 10^3/uL (130-400); Red Cell Dist. Width 15.2 % (11.5-14.5)
[2025-04-28 04:54] LABS: Blood Urea Nitrogen 18 mg/dl (7-17); Calcium 8.3 mg/dl (8.4-10.2); Carbon Dioxide 34 mmol/L (22-30); Chloride 99 mmol/L (98-107); Estimated Creatinine Clearance 61 ml/min; Glucose 97 mg/dl (70-99); Potassium 5.0 mmol/L (3.5-5.1); Sodium 133 mmol/L (135-145); eGFR > 60.00
[2025-04-28 05:16] LABS: Glucose - Point of Care 96 mg/dl (70-99)
[2025-04-28] MEDS: SODIUM CHLORIDE 3% FOR INHALATION 1 VIAL INH ×3 (07:25→19:10)
[2025-04-28] MEDS: DUONEB 3 ML INH ×3 (07:25→19:10)
[2025-04-28 08:36] LABS: Venous Blood Gas B.E. 9.4 mmol/L (-4 to +4); Venous Blood Gas O2 Sat % 98.2 %
[2025-04-28] MEDS: PROTONIX IV 40 MG IV (08:46)
[2025-04-28] MEDS: NSS (PRESERVATIVE FREE) 10 ML IV (08:46)
[2025-04-28] MEDS: MIRALAX PO (08:48)
[2025-04-28] MEDS: CARDIZEM CD 120 MG PO (08:48)
[2025-04-28] MEDS: ELIQUIS 2.5 MG TUBE ×2 (08:49→20:57)
--- NOTE | 2025-04-28 09:07 | W.PN.PUL3 ---
Today's Communication / Plan
-
- Switch BiPAP to as needed
- Follow-up chest x-ray in a.m.
- Continue incentive spirometry, add flutter valve
- Pulmonary team will continue to follow
- Outpatient follow-up scheduled for 05/14 with [facility]
Assessment
-
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
and hypercapnia on BiPAP-pulmonary consulted for hypercapnia shortness of breath 04/19/2025.
04/20/10. Patient overnight developed worsening hypoxia initially required mid flow later on switched to high flow as well as nonrebreather. In view of worsening respiratory status, she was transferred to ICU and emergently intubated and
mechanically ventilated on 04/20/2025.
Paraesophageal hernia status post laparoscopic repair
Mild chronic hypercapnia-VBG 04/18/2025--62/69/7.23 and VBG 04/19/2025--62/158/7.27
Restrictive lung disease
Mild normocytic anemia-hemoglobin 10.7
Mild hyperglycemia
Conditions present prior to admission:
Hypertension.
Hyperlipidemia.
GERD.
Restless leg syndrome.
Mild aortic stenosis.
Paraesophageal hernia status postrepair this admission.
Arthritis. Right ankle surgery 2004. Inguinal hernia repair small bowel resection 2022.
Assessment and plan:
#1. Acute encephalopathy with acute on chronic hypercapnic respiratory failure (04/23)
- 04/23, increased CO2 retention overnight, BIPAP initiated . Continued to have hypercapnia, switched to V60, AVAPS with significant improvement
- 04/26, doing well on AVAPS nightly and nasal cannula during daytime.
- 04/27. switched to BIPAP 15/6 nightly and when napping and Nasal canula day time. Doing well. Transfer to IMU.
- 04/28, did not use BIPAP overnight, doing well. VBG at baseline. Switch to PRN BIPAP
- Baseline severe restriction due to large hiatal hernia, kyphosis. Now post op atelectasis, pleura effusion and likely additional nocturnal hypoventilation. On incentive spirometry, patient barely able to pull in 500 ml.
- Sit more in chair as tolerated
- In view of right lower lobe atelectasis, continue hypertonic saline 3%, 3 times daily nebulized along with albuterol. Flutter valve
- Counseled again regarding use of incentive spirometry, PT, OT, increase activity as tolerated
- Overall respiratory status continues to be slowly improving.
- CXR in AM.
#1a. Acute hypoxic and hypercapnic respiratory failure, worsened overnight (04/20/2025)
- Patient had been on mid flow, subsequently high flow and later on required nonrebreather in addition. Intubated on 04/21/2025- extubated 04/22/2025
- Bilateral pulmonary opacities concerning for atelectasis versus pneumonia along with bilateral pleural effusions. Also patient has baseline severe restrictive lung disease due to large hiatal hernia intrathoracic.
- Continues to be afebrile with normal WBC count. Pulmonary opacities more likely compressive atelectasis rather than pneumonia. Off antibiotics now.
#2. Bilateral pleural effusions, R>L
- Right sided thoracentesis, bedside, 04/21. Straw colored 500 ml fluid removed. LDH 153, transudate by LDH criterial. Borderline exudate by Protein criteria. Since she had received diuresis earlier, more like pseudo-exudate. Cultures negative so
far. Suspect related to volume overload considering elevated BNP as well.
- BNP >4000, ? related to HFpEF. Developing trace edema bilaterally. PRN Lasix.
- CXR in AM
#3. Baseline severe restrictive disease
- Restrictive lung disease at baseline due to large hiatal hernia intrathoracic.
- At baseline patient has mild chronic hypercapnia due to the restrictive lung disease
#4. Paroxysmal atrial fibrillation with RVR
- Cardiology service on case, correspondence reviewed. Cardizem infusion switched to oral Cardizem long acting formulation.
- Eliquis resumed.
#5. Large intra-thoracic hiatal hernia
- S/p laparoscopic repair, 04/2025. Management per surgery service
- Sub-optimal PO intake. Initiated TPN via PICC on 04/23
- s/p feeding tube placement 04/26, TF initiated, weaned off TPN
#6. Shock.
- Patient developed hypotension post intubation. Suspect partly related to sedation medications as well as intubation with underlying mild pulmonary hypertension.
- Off levophed now
- Procalcitonin normal, discontinued antibiotics
- Echocardiogram reviewed, LVEF is 65 to 70%. BNP however significantly elevated.
DVT prophylaxis- Eliquis
GI prophylaxis-on pantoprazole
The patient saw Perri STUART/Dr. Colon on and Dr. Morales on 02/19/2025-recommend follow-up after hospitalization
Total time spent on this consultation/encounter __45__ minutes which includes review of history, physical exam, medications, laboratory data, personal review of imaging, extensive review of outpatient records, discussion with care team and
respiratory therapy.
Updated patient's and son at bedside.
Outpatient follow-up scheduled with [facility], on 05/14.
Diagnostic data:
CXR 12/09/2024: Large hiatal hernia with increased left basilar opacity which may represent pneumonia or increased chronic atelectasis/scarring.
Chest x-ray 04/18/2025-extremely low lung volumes, tiny bilateral pleural effusions
Chest x-ray 04/18/2025-increased bibasilar opacifications may represent bilateral pleural effusions with adjacent atelectasis and/or pneumonia
VSE 11/28/2024: No aspiration.
CT chest 11/27/2024: Massive hiatal hernia containing entire stomach and mid transverse colon. Large amount of subpleural airspace consolidation in the left lower lobe adjacent to the hiatal hernia which is likely chronic compressive atelectasis and
scarring. Small to moderate-sized airspace consolidations in the superior segment of the right lower lobe and anterior segment of the right upper lobe which is most likely multifocal pneumonia. Moderate subpleural airspace consolidation in the right
lower lobe, either compressive atelectasis or pneumonia. Small bilateral pleural effusions. Moderate to severe air distention of the esophagus proximal to the hiatal hernia. Mild cardiomegaly. Severely exaggerated upper thoracic kyphosis and
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
CT chest 01/16/2025-interval resolution of previously seen anterior right upper lobe pneumonia, improved bilateral lower lobe and right middle lobe atelectasis/scarring
Echocardiogram 11/27/2024-EF 65-70%, mild aortic stenosis, SHANNAN 1.7 cm, PA systolic estimated 40-25
PFT 02/19/2025�Postbronchodilator FEV1 1.16 L, 73% of predicted.� FVC 1.57 L, 73% of predicted.� FEV1/FVC 74.��Lung volumes.� Total lung capacity reduced at 2.91 L, 67% of predicted. Diffusion capacity.� Reduced at 7.44, 43% of predicted, when
adjusted for alveolar volume to 68% of predicted.
6MWT 12/19/24: At rest, O2 100% on room air, heart rate 81. With ambulation, O2 aureliano 99%, max heart rate 134. 1/10 on dyspnea scale. Ambulated 300 feet.
Subjective Data
-
Date of Service:
Date of Service: April 28, 2025
Subjective:
Patient comfortably sitting in bed, currently on 2 L supplemental oxygen.
Review of Systems
Genitourinary: Other (All 14 systems reviewed and negative except as stated above in the history of present illness.)
Objective Data
Data Reviewed
Vital Signs / I&O / Oxygen:
Vital Signs
Temp Pulse Resp BP Pulse Ox
97.5 F 88 18 121/79 96
04/28/25 07:19 04/28/25 08:48 04/28/25 07:34 04/28/25 08:48 04/28/25 07:34
Intake and Output
04/27/25 04/28/25 04/29/25
06:59 06:59 06:59
Intake Total 1174 / 1212 1628 / 1628
Output Total 1560 / 1560 425 / 425
Balance -386 / -348 1203 / 1203
SaO2 [NIV (Non Invasive 94
Ventilation)]
SaO2 [CPAP] 96
SaO2 [A/C] 97
SaO2 96
Nasal Cannula flow liters per 2
minute
Physical Exam
General: Comfortable
HEENT: Normocephalic
Cardiovascular: S1-S2
Respiratory: Clear
GI: Soft and Non Distended
Neurology: Awake and Alert
Skin: Warm
Labs/Micro/Reports
Lab Data
04/28/25 04:14
04/28/25 04:14
Microbiology
04/20/25 15:47 Blood/Venous Blood Culture - Final
No Growth - Final Report
04/20/25 15:33 Blood/Venous Blood Culture - Final
No Growth - Final Report
04/21/25 09:39 Pleural Fluid Body Fluid Culture - Final
No Growth After 72 Hours
04/21/25 09:39 Pleural Fluid Gram Stain - Final
--- NOTE | 2025-04-28 10:38 | W.PN.HOSP.TC ---
Today's Communication/Plan
-
Monitor vital signs see plan
Wean oxygen as tolerated
BiPAP as needed per pulmonary
Continue with tube feeds
Continue Eliquis
PT
Assessment / Plan
Assessment / Plan
CT chest noncontrast:
1. Evaluation overall limited as a result of several factors, most prominent lack of intravenous contrast as well as prominent respiration/motion artifact.
2. Moderate left pleural effusion with accompanying left lower lobe consolidation/atelectasis, significantly increased in comparison to prior study.
3. Moderate to large right pleural effusion with accompanying right middle lobe and right lower lobe consolidations, significantly increased in comparison to prior study.
4. Dilated thoracic esophagus with layering fluid and/or fluid material, nasogastric tube extends into the stomach. Large hiatal hernia again noted.
5. No pneumothorax.
Acute hypoxic and hypercapnic respiratory failure
Restrictive lung disease at baseline with mild chronic hypercapnia.
- Respiratory failure multifactorial due to combination of restrictive lung disease/atelectasis versus pneumonia/bilateral pleural effusion
- Patient was tried on mid flow > high flow > nonrebreather, ended up requiring intubation and mechanical ventilation. Status postextubation. Then was hypercapnic and was placed on BiPAP. cw bipap as needed. Pulmonary following. blood gas noted
today with some pco2 in 50's. patient not tachypnic. PH 7.4
Now on 2 L, wean oxygen as tolerated
- CT chest and chest x-ray images reviewed. Consistent with atelectasis. IS. Started on hypertonic saline
Status post right-sided Thora 04/21. Pocus on left side 04/22 with small effusion. Repeat right sided Thora was attempted on 04/25 however very small fluid pocket
Follow Thora culture; Pro-Mega negative. Agree with discontinuing antibiotic
Type IV paraesophageal hernia
Status post robotic assisted lap repair with gastropexy on 04/15/2025
- Postoperative care per general surgery
- RADHA drain in place with drainage decreasing
Was on TPN. now s/p PEG 04/26. Started tube feeds through PEG 04/27. Overnight some nausea with high residuals. Tube feed now with 10 cc/h
Ambulatory dysfunction
Patient in need for hospital bed. patient requires frequent changes in body position and has an immediate need for a change in position and requires the head of the bed to be elevated more than 30 degrees to prevent aspiration
Discussed with spouse, wants to rather take patient home. Denies rehab
Anemia, suspect anemia of chronic disease
1 unit PRBC 04/25 per surgery
monitor
Hypomagnesemia
Hypophosphatemia
Hypocalcemia
Shock
- possible secondary to sedation medication and postintubation
- Shock resolved, weaned off Levophed
Paroxysmal A-fib with RVR
Back in normal sinus rhythm, continue to monitor. Started on Cardizem
- Cardiology following
Eliquis started
Acute kidney injury - resolved
- Avoid nephrotoxic medication as possible
Diarrhea
- Possible side effect of Zosyn
resolved
Chronic normocytic anemia
Hyperlipidemia
Gastroesophageal reflux disease
Restless leg syndrome
Mild aortic stenosis
Osteoarthritis
History of inguinal hernia repair
History of small bowel resection in
History of right ankle surgery in
Full code
eliquis
General: On nasal cannula
HEENT: Anicteric, pink conjunctiva
Cardiac: regular Rhythm and S1/S2
Lungs: Clear to auscultation, dull breath sounds
GI: Soft and Other (Surgical dressing ); Negative Distended
Musculoskeletal: Edema, Right Lower Extrem and Edema, Left Lower Extrem
Neuro: AAOX3
I spent a total of 52 minutes with the patient or on the floor. More than 50% of this time involved counseling and coordination of care.
Anticipated Discharge: 24 - 48 hours
Subjective/Interval History
-
Date of Service: April 28, 2025
denies pain
Objective Data
-
Labs:
Laboratory Results
04/28/25
04:14
WBC 9.6
Hgb 9.8 L
Hct 30.3 L
Plt Count 221
Sodium 133 L
Potassium 5.0
Chloride 99
Carbon Dioxide 34 H
BUN 18 H
Creatinine 0.5 L
Glucose 97
Calcium 8.3 L
Vital Signs:
Vital Signs
Temp Pulse Resp BP Pulse Ox
97.5 F 88 18 121/79 96
04/28/25 07:19 04/28/25 08:48 04/28/25 07:34 04/28/25 08:48 04/28/25 07:34
I&O
04/27/25 04/28/25 04/29/25
06:59 06:59 06:59
Intake Total 1174 / 1212 1628 / 1628
Output Total 1560 / 1560 425 / 425
Balance -386 / -348 1203 / 1203
--- NOTE | 2025-04-28 11:30 | PTCARENOTE ---
Attempted to turn O2 to off. Sats mainly 91-92% with occasionally desating to 88% while sleeping. O2 reapplied...2L N/C..sats 97%. Pt resting comfortably OOB in chair. Call licea within reach.
[2025-04-28 11:58] LABS: Glucose - Point of Care 105 mg/dl (70-99)
[2025-04-28] MEDS: REQUIP 2 MG PO (12:40)
--- NOTE | 2025-04-28 14:45 | PTCARENOTE ---
Bedside report provided to Nena BEAVER. Pt to transfer to Room 3355. All belongings taken to new room w/ family.
--- NOTE | 2025-04-28 14:59 | W.PN.GS2 ---
Today's Communication / Plan
-
Advance TF towards goal
Assessment / Plan
-
Assessment: 79 y/o female h/o Hypertension, mild aortic stenosis, moderate to severe tricuspid valve regurgitation, restless legs, severe DJD with scoliosis
POD #13 s/p robo assisted lap repair type IV PEH with gastropexy;EDG
PPD #2 EGD with PEG placement on 04/26/25 Patulous, presbyesophagus with some liquid/food debris refluxing back from stomach noted
Afib with RVR on 04/20, started on AC and diltiazem (with improvement) -> sinus with occasional self limiting Afib
Hypoxia requiring intubation on 04/20, extubated less than 24h later; s/p right thoracentesis 04/21. Still requiring O2 but weaning down on requirement
Hypercarbic respiratory failure improved with BIPAP, off bipap last noc and did well
H/H stable s/p transfusion x1 unit on 04/25
No leukocytosis
Now off TPN
High TF residual of 400ml last noc with mild nausea, TF held. Pt had BM and TF resumed at 10ml/hr, tolerating thus far with residual of 15ml this afternoon. Denies nausea currently.
Plan:
Ok for clears for comfort
Continue TF diet via PEG with osmo 1.2, appreciate nutrition rec. Begin slowly advancing toward goal rate. Increase to 20ml/hr now and then increase by 20ml/hr every 8hour until goal of 55ml/hr. Flush PRN. Given concurrent CLD, will hold off on
hourly free water flushes.
Continue Miralax
Appreciate pulm/cardiology/hospitalist assistance with ongoing post op medical care, ok for transfer to IMU from surgical standpoint
monitor RADHA outputs (serous and minimal currently), anticipate removal of RADHA drain prior to d/c
protonix for GIp
Subjective Data
-
Date of Service: April 28, 2025
Pt seen and examined at bedside with Dr. Garrett. Episode of nausea last noc, but no vomiting. No nausea today. Passing some gas. Small BM last night. OOB to chair. and son at bedside, updated.
Objective Data
-
Intake and Output
04/27/25 04/28/25 04/29/25
06:59 06:59 06:59
Intake Total 1174 / 1212 1628 / 1638 830 / 830
Output Total 1560 / 1560 425 / 425 340 / 340
Balance -386 / -348 1203 / 1213 490 / 490
Intake:
Oral fluids 300 / 300 800 / 800 720 / 720
TPN/PPN 874 / 912 608 / 608
Tube feeding 160 / 170 80 / 80
Feeding tube flush amount 30 / 30
Amount instilled into GI Tube ( 60 / 60
Total)
Gastrostomy 60 / 60
Output:
Drain Output (Total) 60 / 60 25 40 / 40
Left Upper Abdomen Elia- 60 / 60 / 25 40 / 40
Rouse
Gastrointestinal tube output ( 400 / 400
Total)
Gastrostomy 400 / 400
Urine, Voided 1500 / 1500 300 / 300
Other:
Number of approximated MODERATE 1 1
amounts of urine
How many times incontinent 1
MODERATE amount urine
Vital Signs
Temp Pulse Resp BP Pulse Ox
97.5 F 85 18 113/66 96
04/28/25 11:04 04/28/25 14:25 04/28/25 14:25 04/28/25 14:00 04/28/25 14:25
Lab Results
04/28/25 04:14
04/28/25 04:14
Calcium 8.3 mg/dl (8.4-10.2) L 04/28/25 04:14
Phosphorus 4.5 mg/dl (2.5-4.5) 04/28/25 04:14
Magnesium 1.9 mg/dl (1.6-2.3) 04/27/25 04:16
Total Bilirubin 0.6 mg/dl (0.2-1.3) 04/25/25 18:35
AST 23 U/L (14-36) 04/25/25 18:35
ALT 12 U/L (0-35) 04/25/25 18:35
Alkaline Phosphatase 91 U/L (38-126) 04/25/25 18:35
Total Protein 6.2 g/dl (6.3-8.2) L 04/25/25 18:35
Albumin 3.2 g/dl (3.5-5.0) L 04/25/25 18:35
Physical Exam
-
NAD AAOx3
SOB with conversation, raspy vocal quality
ABD: soft, ND, NTTP
PEG intact, no erythema
Incisions well approximated, intact glue
RADHA with serous fluid
Patient has a central line: Yes (PICC)
[2025-04-28 18:10] LABS: Glucose - Point of Care 104 mg/dl (70-99)
[2025-04-28] MEDS: ZOFRAN 4 MG IV (21:03)
[2025-04-28] MEDS: REQUIP 0.5 MG PO (21:03)
[2025-04-29] VITALS (14 sets, daily range): BP systolic 101–125; BP diastolic 54–73; PULSE 85; O2SAT 92; BMI 20.9
[2025-04-29] MEDS: NOVOLOG FLEXPEN-MODERATE RESISTANCE SC ×3 (00:31→13:23)
[2025-04-29 00:47] LABS: Glucose - Point of Care 101 mg/dl (70-99)
[2025-04-29 05:44] LABS: Glucose - Point of Care 73 mg/dl (70-99)
[2025-04-29 05:58] LABS: Hematocrit 29.4 % (37.0-47.0); Hemoglobin 9.6 g/dL (12.0-16.0); Mean Corp Hgb Conc. 32.7 g/dL (33.0-37.0); Mean Corpuscular Volume 93.0 fL (81.0-99.0); Nucleated Red Blood Cells % 0 %; Platelet Count 240 10^3/uL (130-400); Red Cell Dist. Width 14.8 % (11.5-14.5)
[2025-04-29 06:26] LABS: ALT (SGPT) 12 U/L (0-35); AST (SGOT) 22 U/L (14-36); Albumin 2.9 g/dl (3.5-5.0); Alkaline Phosphatase 88 U/L (38-126); Blood Urea Nitrogen 17 mg/dl (7-17); Calcium 8.6 mg/dl (8.4-10.2); Carbon Dioxide 33 mmol/L (22-30); Chloride 96 mmol/L (98-107); Estimated Creatinine Clearance 61 ml/min; Glucose 90 mg/dl (70-99); Magnesium 1.9 mg/dl (1.6-2.3); Potassium 5.1 mmol/L (3.5-5.1); Sodium 131 mmol/L (135-145); Total Protein 6.1 g/dl (6.3-8.2); Triglycerides 79 mg/dl (10-149); eGFR > 60.00
--- NOTE | 2025-04-29 06:40 | PTCARENOTE ---
Pt appearing to get rest through out the night. Respirations even un labored. Pt appears to be tolerating TF, now 20ml/hr. Pt has no complaints this AM. Call licea within reach. Assessment care and vitals as charted.
[2025-04-29] MEDS: SODIUM CHLORIDE 3% FOR INHALATION 1 VIAL INH ×3 (07:11→19:00)
[2025-04-29] MEDS: DUONEB 3 ML INH ×3 (07:11→19:00)
--- NOTE | 2025-04-29 09:23 | VATNOTE ---
Vat rounds: Assessed the needs for picc line. Awaiting for the patient to tolerated tube feeds at her goal per MD.
[2025-04-29] MEDS: PROTONIX IV 40 MG IV (09:24)
[2025-04-29] MEDS: CARDIZEM CD 120 MG PO (09:25)
[2025-04-29] MEDS: ELIQUIS 2.5 MG TUBE ×2 (09:25→20:59)
[2025-04-29] MEDS: MIRALAX 17 GRAMS PO (09:25)
[2025-04-29] MEDS: NSS (PRESERVATIVE FREE) 10 ML IV (09:25)
--- NOTE | 2025-04-29 09:51 | W.PN.GS2 ---
Today's Communication / Plan
-
slowly advance TF towards goal
Assessment / Plan
-
Assessment: 79 y/o female h/o Hypertension, mild aortic stenosis, moderate to severe tricuspid valve regurgitation, restless legs, severe DJD with scoliosis
POD #14 s/p robo assisted lap repair type IV PEH with gastropexy;EDG
PPD #3 EGD with PEG placement on 04/26/25 Patulous, presbyesophagus with some liquid/food debris refluxing back from stomach noted
Afib with RVR on 04/20, started on AC and diltiazem (with improvement) -> sinus with occasional self limiting Afib
Hypoxia requiring intubation on 04/20, extubated less than 24h later; s/p right thoracentesis 04/21. Still requiring O2 but weaning down on requirement
Hypercarbic respiratory failure improved with BIPAP, off bipap last noc and did well
H/H stable s/p transfusion x1 unit on 04/25
No leukocytosis
Now off TPN
Mildly elevated residuals, 170ml this am. Increasing TF slowly towards goal. Currently at 20ml/hr
Plan:
Ok for clears for comfort
Continue TF diet via PEG with osmo 1.2, appreciate nutrition rec. Continue slowly advancing toward goal rate. Given concurrent CLD, will hold off on hourly free water flushes for now.
Keep PICC in place until tolerating TF
Continue Miralax
Appreciate pulm/cardiology/hospitalist assistance with ongoing post op medical care
monitor RADHA outputs (serous and minimal currently), anticipate removal of RADHA drain prior to d/c
protonix for GIp
Subjective Data
-
Date of Service: April 29, 2025
Patient seen and examined at bedside with Dr. Dong. Denies n/v. Passed a BM yesterday and having some flatus. Denies SOB.
Objective Data
-
Intake and Output
04/28/25 04/29/25 04/30/25
06:59 06:59 06:59
Intake Total 1628 / 1638 950 / 950
Output Total 425 / 425 380 / 380
Balance 1203 / 1213 570 / 570
Intake:
Oral fluids 800 / 800 840 / 840
TPN/PPN 608 / 608
Tube feeding 160 / 170 80 / 80
Feeding tube flush amount 30 / 30
Amount instilled into GI Tube ( 60 / 60
Total)
Gastrostomy 60 / 60
Output:
Drain Output (Total) 80 / 80
Left Upper Abdomen Elia- 80 / 80
Rouse
Gastrointestinal tube output ( 400 / 400
Total)
Gastrostomy 400 / 400
Urine, Voided 300 / 300
Other:
Number of approximated MODERATE 1 1
amounts of urine
How many times incontinent 1
MODERATE amount urine
Vital Signs
Temp Pulse Resp BP Pulse Ox
98.5 F 76 23 106/71 98
04/29/25 04:27 04/29/25 08:00 04/29/25 08:00 04/29/25 08:00 04/29/25 08:00
Lab Results
04/29/25 05:33
04/29/25 05:33
Calcium 8.6 mg/dl (8.4-10.2) 04/29/25 05:33
Phosphorus 4.2 mg/dl (2.5-4.5) 04/29/25 05:33
Magnesium 1.9 mg/dl (1.6-2.3) 04/29/25 05:33
Total Bilirubin 0.5 mg/dl (0.2-1.3) 04/29/25 05:33
AST 22 U/L (14-36) 04/29/25 05:33
ALT 12 U/L (0-35) 04/29/25 05:33
Alkaline Phosphatase 88 U/L (38-126) 04/29/25 05:33
Total Protein 6.1 g/dl (6.3-8.2) L 04/29/25 05:33
Albumin 2.9 g/dl (3.5-5.0) L 04/29/25 05:33
Physical Exam
-
NAD AAOx3
SOB with conversation, raspy vocal quality
ABD: soft, ND, NTTP
PEG intact, no erythema
Incisions well approximated, intact glue
RADHA with serous fluid
Patient has a central line: Yes (PICC)
--- NOTE | 2025-04-29 10:14 | W.PN.HOSP.TC ---
Today's Communication/Plan
-
cont to follow electrolytes while advancing TF to goal
anemia w/u
check ProBNP and TSH
Assessment / Plan
Assessment / Plan
79yo F with PMHX of retrictive lung disease, anemia, HLD, RLS, came for robotic assisted lap repair with gastropexy on 04/15/2025, developed postOP hypoxia and hypotension, TPN initiated with PEG placement on 04/27/25.
A/P:
#Acute hypoxic and hypercapnic respiratory failure 2/2 atelectasis and restrictive lung disease
wean off O2
Incentive spirometer
Encourage ambulation
CT chest showed moderate pleural effusion: s/p thoracentesis on 04/21/25 - transudate, Cx neg
Pulm follows: Outpatient follow-up scheduled for 05/14 with [facility]
#Paraesophageal hernia
s/p repair
on PEG and CLD
advance diet as per GenSx
Plan to remove PICC when adequate calorie intake
#Anemia
chronic
monitor
#Shock, most likely vasodilation and hypovolemia postOP
resolved
#CONNIE
resolved
#HLD
#OA
cont home meds when able
#Paroxysmal Afib
new onset
Cardio followed
Rate/Rhythm control
Eliquis started
check TSH
telemetry
Full code
DVT ppx on eliquis
I have spent at least 57min reviewing chart, test results, communication with consultnats and providing direct patient care
Anticipated Discharge: > 48 hours
Subjective/Interval History
-
Date of Service: April 29, 2025
Objective Data
-
Labs:
Laboratory Results
04/29/25
05:33
WBC 8.6
Hgb 9.6 L
Hct 29.4 L
Plt Count 240
Sodium 131 L
Potassium 5.1
Chloride 96 L
Carbon Dioxide 33 H
BUN 17
Creatinine 0.6
Glucose 90
Calcium 8.6
Total Bilirubin 0.5
AST 22
ALT 12
Alkaline Phosphatase 88
Vital Signs:
Vital Signs
Temp Pulse Resp BP Pulse Ox
98.5 F 76 23 106/71 98
04/29/25 04:27 04/29/25 08:00 04/29/25 08:00 04/29/25 08:00 04/29/25 08:00
I&O
04/28/25 04/29/25 04/30/25
06:59 06:59 06:59
Intake Total 1628 / 1638 950 / 950
Output Total 425 / 425 380 / 380
Balance 1203 / 1213 570 / 570
Review of Systems
-
History Source: Patient
All other systems: Reviewed and negative
Physical Exam
-
General: No Apparent Distress
HEENT: Normocephalic
Respiratory: Clear to Auscultation
Cardiac: Irregular Rhythm
GI: Soft, Nontender, Nondistended and Peg Tube
Musculoskeletal: No Clubbing, No Cyanosis and No Edema
Neuro: Awake, Alert, Oriented and AO x 3
Psych: Calm
--- NOTE | 2025-04-29 10:23 | W.PN.PUL.V3 ---
Today's Communication / Plan
-
Wean oxygen
Increase activity
BiPAP as needed
Assessment
-
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
and hypercapnia on BiPAP-pulmonary consulted for hypercapnia shortness of breath 04/19/2025.
04/20/10. Patient overnight developed worsening hypoxia initially required mid flow later on switched to high flow as well as nonrebreather. In view of worsening respiratory status, she was transferred to ICU and emergently intubated and
mechanically ventilated on 04/20/2025.
Paraesophageal hernia status post laparoscopic repair
Mild chronic hypercapnia-VBG 04/18/2025--62/69/7.23 and VBG 04/19/2025--62/158/7.27
Restrictive lung disease
Mild normocytic anemia-hemoglobin 10.7
Mild hyperglycemia
Conditions present prior to admission:
Hypertension.
Hyperlipidemia.
GERD.
Restless leg syndrome.
Mild aortic stenosis.
Paraesophageal hernia status postrepair this admission.
Arthritis. Right ankle surgery 2004. Inguinal hernia repair small bowel resection 2022.
Assessment and plan:
#1. Acute encephalopathy with acute on chronic hypercapnic respiratory failure (04/23/25)
- 04/23, increased CO2 retention overnight, BIPAP initiated . Continued to have hypercapnia, switched to V60, AVAPS with significant improvement
- 04/26, doing well on AVAPS nightly and nasal cannula during daytime.
- 04/27. switched to BIPAP 15/6 nightly and when napping and Nasal canula day time. Doing well. Transfer to IMU.
- 04/28, did not use BIPAP overnight, doing well. VBG at baseline. Switch to PRN BIPAP
- Baseline severe restriction due to large hiatal hernia, kyphosis. Now post op atelectasis, pleura effusion and likely additional nocturnal hypoventilation. On incentive spirometry, patient barely able to pull in 500 ml.
- Sit more in chair as tolerated, increase activity, physical therapy
- In view of right lower lobe atelectasis, continue hypertonic saline 3%, 3 times daily nebulized along with albuterol. Flutter valve
- Patient has been counseled regarding use of incentive spirometry, PT, OT, increase activity as tolerated
- Overall respiratory status continues to be slowly improving.
- CXR 04/29/2025-stable, moderate bilateral pleural effusions
#1a. Acute hypoxic and hypercapnic respiratory failure, worsened overnight (04/20/2025)
- Patient had been on mid flow, subsequently high flow and later on required nonrebreather in addition. Intubated on 04/21/2025- extubated 04/22/2025
- Bilateral pulmonary opacities concerning for atelectasis versus pneumonia along with bilateral pleural effusions. Also patient has baseline severe restrictive lung disease due to large hiatal hernia intrathoracic.
- Continues to be afebrile with normal WBC count. Pulmonary opacities more likely compressive atelectasis rather than pneumonia. Off antibiotics now.
#2. Bilateral pleural effusions, R>L
- Right sided thoracentesis, bedside, 04/21/25-straw colored 500 ml fluid removed. LDH 153, transudate by LDH criterial. Borderline exudate by Protein criteria. Since she had received diuresis earlier, more like pseudo-exudate. Cultures negative so
far. Suspect related to volume overload considering elevated BNP as well.
- BNP >4000, ? related to HFpEF. Developing trace edema bilaterally. PRN Lasix.
- CXR 04/29/2025-stable bilateral pleural effusions
#3. Baseline severe restrictive disease
- Restrictive lung disease at baseline due to large hiatal hernia intrathoracic.
- At baseline patient has mild chronic hypercapnia due to the restrictive lung disease
#4. Paroxysmal atrial fibrillation with RVR
- Cardiology service on case, correspondence reviewed. Cardizem infusion switched to oral Cardizem long acting formulation.
- Eliquis resumed.
#5. Large intra-thoracic hiatal hernia
- S/p laparoscopic repair, 04/2025. Management per surgery service
- Sub-optimal PO intake. Initiated TPN via PICC on 04/23
- s/p feeding tube placement 04/26, TF initiated, weaned off TPN
#6. Shock.
- Patient developed hypotension post intubation. Suspect partly related to sedation medications as well as intubation with underlying mild pulmonary hypertension.
- Off levophed now
- Procalcitonin normal, discontinued antibiotics
- Echocardiogram reviewed, LVEF is 65 to 70%. BNP however significantly elevated.
DVT prophylaxis- Eliquis
GI prophylaxis-on pantoprazole
Nutrition per surgery
Physical therapy/Occupational Therapy
The patient saw Perri STUART/Dr. Colon and Dr. Morales on 02/19/2025-recommend follow-up after hospitalization
Dr. Galicia updated patient's and son at bedside 04/29/2025
Outpatient follow-up scheduled with [facility] pulmonary, on 05/14/25
Diagnostic data:
CXR 12/09/2024: Large hiatal hernia with increased left basilar opacity which may represent pneumonia or increased chronic atelectasis/scarring.
Chest x-ray 04/18/2025-extremely low lung volumes, tiny bilateral pleural effusions
Chest x-ray 04/18/2025-increased bibasilar opacifications may represent bilateral pleural effusions with adjacent atelectasis and/or pneumonia
VSE 11/28/2024: No aspiration.
CT chest 11/27/2024: Massive hiatal hernia containing entire stomach and mid transverse colon. Large amount of subpleural airspace consolidation in the left lower lobe adjacent to the hiatal hernia which is likely chronic compressive atelectasis and
scarring. Small to moderate-sized airspace consolidations in the superior segment of the right lower lobe and anterior segment of the right upper lobe which is most likely multifocal pneumonia. Moderate subpleural airspace consolidation in the right
lower lobe, either compressive atelectasis or pneumonia. Small bilateral pleural effusions. Moderate to severe air distention of the esophagus proximal to the hiatal hernia. Mild cardiomegaly. Severely exaggerated upper thoracic kyphosis and
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
CT chest 01/16/2025-interval resolution of previously seen anterior right upper lobe pneumonia, improved bilateral lower lobe and right middle lobe atelectasis/scarring
Echocardiogram 11/27/2024-EF 65-70%, mild aortic stenosis, SHANNAN 1.7 cm, PA systolic estimated 40-25
PFT 02/19/2025�Postbronchodilator FEV1 1.16 L, 73% of predicted.� FVC 1.57 L, 73% of predicted.� FEV1/FVC 74.��Lung volumes.� Total lung capacity reduced at 2.91 L, 67% of predicted. Diffusion capacity.� Reduced at 7.44, 43% of predicted, when
adjusted for alveolar volume to 68% of predicted.
6MWT 12/19/24: At rest, O2 100% on room air, heart rate 81. With ambulation, O2 aureliano 99%, max heart rate 134. 1/10 on dyspnea scale. Ambulated 300 feet.
Subjective Data
-
Date of Service:
Date of Service: April 29, 2025
Chief Complaint: Pulmonary Follow Up and Dyspnea Follow Up
Subjective:
Out of bed to chair rest, no chest congestion, productive cough, some minimal abdominal pain
Review of Systems
General: Other (Per HPI)
Objective Data
Data Reviewed
Vital Signs / I&O:
Vital Signs
Temp Pulse Resp BP Pulse Ox
98.5 F 76 23 106/71 98
04/29/25 04:27 04/29/25 08:00 04/29/25 08:00 04/29/25 08:00 04/29/25 08:00
Intake and Output
04/28/25 04/29/25 04/30/25
06:59 06:59 06:59
Intake Total 1628 / 1638 950 / 950
Output Total 425 / 425 380 / 380
Balance 1203 / 1213 570 / 570
SaO2: 98
Nasal Cannula flow liters per minute: 2
Physical Exam
General: Respiratory Distress (n) and Comfortable
HEENT: Normocephalic
Cardiovascular: S1-S2 and Regular Rhythm
Respiratory: Clear, Wheeze (n), Crackles (n), Rhonchi (n), Non-Labored Respirations and Accessory Resp Muscle Use (n)
GI: Soft, Non Distended and Non Tender
Neurology: Awake, Alert and No Motor Deficits
Skin: Warm, Good Color and Cyanosis (n)
Labs/Micro/Reports
Lab Data
04/29/25 05:33
04/29/25 05:33
[2025-04-29 10:35] LABS: Reticulocyte Count 2.4 % (0.4-2.8)
[2025-04-29 10:50] LABS: Iron 24 ug/dl (37-170)
[2025-04-29 11:00] LABS: Total Iron Binding Capacity 192 ug/dl (265-497)
[2025-04-29 11:27] LABS: Ferritin 233.0 ng/ml (11.1-264.0)
[2025-04-29 11:55] LABS: Glucose - Point of Care 115 mg/dl (70-99)
[2025-04-29 11:59] LABS: Folate 17.0 ng/ml (2.76-20); Vitamin B12 328 pg/ml (239-931)
[2025-04-29] MEDS: REQUIP 2 MG PO (13:23)
--- NOTE | 2025-04-29 15:15 | CM ---
Addendum entered by Burak Wilde 04/29/25 16:51:
Therapy evaluation on this date, 04/29/25, has been changed to home with , RN, PT/OT. [facility] referral previously forwarded.
Original Note:
Peg placed 04/26/25. TPN d/cd. Increasing TF and following lytes. Wean O2. Discharge POC: Therapy recommending SNF. Family does not want SNF and prefers [facility] RN, PT/OT. Lives with and has 5 supportive children. Now has Peg. Spoke with
to clarify the preference is to go home with [facility] services despite therapy rec for SNF. will be home with patient 04/04 and definitely wants her home with services. Referral to [facility] previously forwarded.
[2025-04-29 17:50] LABS: Glucose - Point of Care 129 mg/dl (70-99)
--- NOTE | 2025-04-29 18:44 | PTCARENOTE ---
OOB all day - ambulated with PT/OT. Small amt blood oozing from right nare- cleansed pressure held. Slowed down but trickled alittle longer- O2 weaned to 1L NC. RA 89% dropped to 86% with ambulation. PEG has 140ml residual - no nausea this pm
so tube feeding increased to 30ml. Education provided to family regarding feeding orally. Remains in SR on tele- BP 101/61. Voids on bsc, incontinent of scant amt loose watery stool on covedian pad today. Family at bedside all day.
[2025-04-29] MEDS: OCEAN, SALINE MIST 2 SPRAYS NASAL (21:00)
[2025-04-29] MEDS: REQUIP 0.5 MG PO (21:34)
[2025-04-30] VITALS (14 sets, daily range): BP systolic 110–133; BP diastolic 51–84; BMI 21.2
--- NOTE | 2025-04-30 00:03 | PTCARENOTE ---
Pt remains on 30ml of TF with out complaints of nausea at this time. Pt residual on 20 ml. Pt has no complaints of pain at this time. Call bel within reach. Assessment care and vitals as charted.
[2025-04-30 04:13] LABS: Hematocrit 30.4 % (37.0-47.0); Hemoglobin 9.9 g/dL (12.0-16.0); Mean Corp Hgb Conc. 32.6 g/dL (33.0-37.0); Mean Corpuscular Volume 92.7 fL (81.0-99.0); Nucleated Red Blood Cells % 0 %; Platelet Count 242 10^3/uL (130-400); Red Cell Dist. Width 14.6 % (11.5-14.5)
--- NOTE | 2025-04-30 04:38 | PTCARENOTE ---
Pt residual 5ml, TF advanced Q8. At this time Pt appears to be tolerating 40ml/hr well, no nausea reported at this time. See work list for detail.
[2025-04-30 04:39] LABS: ALT (SGPT) 13 U/L (0-35); AST (SGOT) 21 U/L (14-36); Albumin 3.0 g/dl (3.5-5.0); Alkaline Phosphatase 89 U/L (38-126); Blood Urea Nitrogen 17 mg/dl (7-17); Calcium 8.7 mg/dl (8.4-10.2); Carbon Dioxide 35 mmol/L (22-30); Chloride 94 mmol/L (98-107); Estimated Creatinine Clearance 61 ml/min; Glucose 132 mg/dl (70-99); Magnesium 1.8 mg/dl (1.6-2.3); Potassium 4.9 mmol/L (3.5-5.1); Sodium 131 mmol/L (135-145); Total Protein 6.2 g/dl (6.3-8.2); eGFR > 60.00
--- NOTE | 2025-04-30 07:26 | W.PN.GS2 ---
Today's Communication / Plan
-
`
Assessment / Plan
-
Assessment: 79 y/o female h/o Hypertension, mild aortic stenosis, moderate to severe tricuspid valve regurgitation, restless legs, severe DJD with scoliosis
POD #15 s/p robo assisted lap repair type IV PEH with gastropexy;EDG
PPD #4 EGD with PEG placement on 04/26/25 Patulous, presbyesophagus with some liquid/food debris refluxing back from stomach noted
Afib with RVR on 04/20, started on AC and diltiazem (with improvement) -> sinus with occasional self limiting Afib
Hypoxia requiring intubation on 04/20, extubated less than 24h later; s/p right thoracentesis 04/21. Still requiring O2 but weaning down on requirement
Hypercarbic respiratory failure improved with BIPAP, off bipap since evening of 04/28
H/H stable s/p transfusion x1 unit on 04/25
TF at goal this AM with minimal residual
stable hyponatremia
Plan: Appreciate pulm/cardiology/hospitalist assistance with ongoing post op medical care
reconsulted speech therapy to see if able to utilize drinking straws
Full liquid diet for comfort
Osmolyte 1.2 @55ml/hr
Keep PICC in place for now for blood draws
bowel regiment with miralax
monitor RADHA outputs (serous and minimal currently), anticipate removal of RADHA drain prior to d/c
protonix PO for GIp
Subjective Data
-
Date of Service: April 30, 2025
pt seen and examined
family at bedside
offers no complaints,
sunita TF at goal - no residuals, no nausea
no abdominal pain
Objective Data
-
Intake and Output
04/29/25 04/30/25 05/01/25
06:59 06:59 06:59
Intake Total 1170 / 1170 1260 / 1260
Output Total 380 / 380 435 / 435
Balance 790 / 790 825 / 825
Intake:
Oral fluids 840 / 840 720 / 720
Tube feeding 300 / 300 290 / 290
Feeding tube flush amount 30 / 30 250 / 250
Output:
Drain Output (Total) 80 / 80 35 / 35
Left Upper Abdomen Elia- 80 / 80 35 / 35
Rouse
Urine, Voided 300 / 300 400 / 400
Other:
Number of approximated SMALL 1
amounts of urine
Number of approximated MODERATE 1 1
amounts of urine
How many times incontinent 1
MODERATE amount urine
Vital Signs
Temp Pulse Resp BP Pulse Ox
98.0 F 74 20 118/59 94
04/30/25 03:00 04/30/25 06:00 04/30/25 06:00 04/30/25 06:00 04/30/25 06:00
Lab Results
04/30/25 04:03
04/30/25 04:03
Calcium 8.7 mg/dl (8.4-10.2) 04/30/25 04:03
Phosphorus 3.4 mg/dl (2.5-4.5) 04/30/25 04:03
Magnesium 1.8 mg/dl (1.6-2.3) 04/30/25 04:03
Total Bilirubin 0.4 mg/dl (0.2-1.3) 04/30/25 04:03
Direct Bilirubin 0.2 mg/dl (0.0-0.4) 04/30/25 04:03
AST 21 U/L (14-36) 04/30/25 04:03
ALT 13 U/L (0-35) 04/30/25 04:03
Alkaline Phosphatase 89 U/L (38-126) 04/30/25 04:03
Total Protein 6.2 g/dl (6.3-8.2) L 04/30/25 04:03
Albumin 3.0 g/dl (3.5-5.0) L 04/30/25 04:03
Physical Exam
-
NAD AAOx3 resting comfortably in hospital bed
ABD: soft, ND, NTTP
PEG 3cm at skin
RADHA with serous fluid
Patient has a rodriguez catheter: No
[2025-04-30] MEDS: DUONEB 3 ML INH ×3 (07:53→19:40)
[2025-04-30] MEDS: SODIUM CHLORIDE 3% FOR INHALATION 1 VIAL INH ×3 (07:53→19:40)
[2025-04-30] MEDS: PROTONIX 40 MG PO (08:34)
[2025-04-30] MEDS: CARDIZEM CD 120 MG PO (08:34)
[2025-04-30] MEDS: ELIQUIS 2.5 MG TUBE ×2 (08:35→20:13)
[2025-04-30] MEDS: MIRALAX 17 GRAMS PO (08:35)
--- NOTE | 2025-04-30 10:38 | W.PN.PUL.V3 ---
Today's Communication / Plan
-
wean FiO2.
Increase activity.
Advance diet.
Continue nebulizers.
Stable for transfer out of IMU from a pulmonary perspective
Assessment
-
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
and hypercapnia on BiPAP-pulmonary consulted for hypercapnia shortness of breath 04/19/2025.
04/20/10. Patient overnight developed worsening hypoxia initially required mid flow later on switched to high flow as well as nonrebreather. In view of worsening respiratory status, she was transferred to ICU and emergently intubated and
mechanically ventilated on 04/20/2025.
Paraesophageal hernia status post laparoscopic repair
Mild chronic hypercapnia-VBG 04/18/2025--62/69/7.23 and VBG 04/19/2025--62/158/7.27
Restrictive lung disease
Mild normocytic anemia-hemoglobin 10.7
Mild hyperglycemia
Conditions present prior to admission:
Hypertension.
Hyperlipidemia.
GERD.
Restless leg syndrome.
Mild aortic stenosis.
Paraesophageal hernia status postrepair this admission.
Arthritis. Right ankle surgery 2004. Inguinal hernia repair small bowel resection 2022.
Assessment and plan:
#1. Acute encephalopathy with acute on chronic hypercapnic respiratory failure (04/23/25)
- 04/23, increased CO2 retention overnight, BIPAP initiated . Continued to have hypercapnia, switched to V60, AVAPS with significant improvement
- 04/26, doing well on AVAPS nightly and nasal cannula during daytime.
- 04/27. switched to BIPAP 15/6 nightly and when napping and Nasal canula day time. Doing well. Transfer to IMU.
- 04/28, did not use BIPAP overnight, doing well. VBG at baseline. Switch to PRN BIPAP
- Baseline severe restriction due to large hiatal hernia, kyphosis. Now post op atelectasis, pleura effusion and likely additional nocturnal hypoventilation. On incentive spirometry, patient barely able to pull in 500 ml.
- Sit more in chair as tolerated, increase activity, physical therapy
- In view of right lower lobe atelectasis, continue hypertonic saline 3%, 3 times daily nebulized along with albuterol. Flutter valve
- Patient has been counseled regarding use of incentive spirometry, PT, OT, increase activity as tolerated
- Overall respiratory status continues to be slowly improving.
- CXR 04/29/2025-stable, moderate bilateral pleural effusions
#1a. Acute hypoxic and hypercapnic respiratory failure, worsened overnight (04/20/2025)
- Patient had been on mid flow, subsequently high flow and later on required nonrebreather in addition. Intubated on 04/21/2025- extubated 04/22/2025
- Bilateral pulmonary opacities concerning for atelectasis versus pneumonia along with bilateral pleural effusions. Also patient has baseline severe restrictive lung disease due to large hiatal hernia intrathoracic.
- Continues to be afebrile with normal WBC count. Pulmonary opacities more likely compressive atelectasis rather than pneumonia. Off antibiotics now.
#2. Bilateral pleural effusions, R>L
- Right sided thoracentesis, bedside, 04/21/25-straw colored 500 ml fluid removed. LDH 153, transudate by LDH criterial. Borderline exudate by Protein criteria. Since she had received diuresis earlier, more like pseudo-exudate. Cultures negative so
far. Suspect related to volume overload considering elevated BNP as well.
- BNP >4000, ? related to HFpEF. Developing trace edema bilaterally. PRN Lasix.
- CXR 04/29/2025-stable bilateral pleural effusions
#3. Baseline severe restrictive disease
- Restrictive lung disease at baseline due to large hiatal hernia intrathoracic.
- At baseline patient has mild chronic hypercapnia due to the restrictive lung disease
#4. Paroxysmal atrial fibrillation with RVR
- Cardiology service on case, correspondence reviewed. Cardizem infusion switched to oral Cardizem long acting formulation.
- Eliquis resumed.
#5. Large intra-thoracic hiatal hernia
- S/p laparoscopic repair, 04/2025. Management per surgery service
- Sub-optimal PO intake. Initiated TPN via PICC on 04/23
- s/p feeding tube placement 04/26, TF initiated, weaned off TPN
#6. Shock.
- Patient developed hypotension post intubation. Suspect partly related to sedation medications as well as intubation with underlying mild pulmonary hypertension.
- Off levophed now
- Procalcitonin normal, discontinued antibiotics
- Echocardiogram reviewed, LVEF is 65 to 70%. BNP however significantly elevated.
DVT prophylaxis- Eliquis
GI prophylaxis-on pantoprazole
Nutrition per surgery
Physical therapy/Occupational Therapy
The patient saw Perri STUART/Dr. Colon and Dr. Morales on 02/19/2025-recommend follow-up after hospitalization
Dr. Galicia updated patient's and son at bedside 04/29/2025, and again on 04/30/25
Outpatient follow-up scheduled with [facility] pulmonary, on 05/14/25
Diagnostic data:
CXR 12/09/2024: Large hiatal hernia with increased left basilar opacity which may represent pneumonia or increased chronic atelectasis/scarring.
Chest x-ray 04/18/2025-extremely low lung volumes, tiny bilateral pleural effusions
Chest x-ray 04/18/2025-increased bibasilar opacifications may represent bilateral pleural effusions with adjacent atelectasis and/or pneumonia
VSE 11/28/2024: No aspiration.
CT chest 11/27/2024: Massive hiatal hernia containing entire stomach and mid transverse colon. Large amount of subpleural airspace consolidation in the left lower lobe adjacent to the hiatal hernia which is likely chronic compressive atelectasis and
scarring. Small to moderate-sized airspace consolidations in the superior segment of the right lower lobe and anterior segment of the right upper lobe which is most likely multifocal pneumonia. Moderate subpleural airspace consolidation in the right
lower lobe, either compressive atelectasis or pneumonia. Small bilateral pleural effusions. Moderate to severe air distention of the esophagus proximal to the hiatal hernia. Mild cardiomegaly. Severely exaggerated upper thoracic kyphosis and
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
CT chest 01/16/2025-interval resolution of previously seen anterior right upper lobe pneumonia, improved bilateral lower lobe and right middle lobe atelectasis/scarring
Echocardiogram 11/27/2024-EF 65-70%, mild aortic stenosis, SHANNAN 1.7 cm, PA systolic estimated 40-25
PFT 02/19/2025�Postbronchodilator FEV1 1.16 L, 73% of predicted.� FVC 1.57 L, 73% of predicted.� FEV1/FVC 74.��Lung volumes.� Total lung capacity reduced at 2.91 L, 67% of predicted. Diffusion capacity.� Reduced at 7.44, 43% of predicted, when
adjusted for alveolar volume to 68% of predicted.
6MWT 12/19/24: At rest, O2 100% on room air, heart rate 81. With ambulation, O2 aureliano 99%, max heart rate 134. 1/10 on dyspnea scale. Ambulated 300 feet.
Subjective Data
-
Date of Service:
Date of Service: April 30, 2025
Chief Complaint: Pulmonary Follow Up and Dyspnea Follow Up
Subjective:
Feels better, upright, no complaints of shortness of breath, alert and oriented, no chest pain, productive cough, or abdominal pain
Review of Systems
General: Other (per HPI)
Objective Data
Data Reviewed
Vital Signs / I&O:
Vital Signs
Temp Pulse Resp BP Pulse Ox
98.0 F 70 15 126/67 98
04/30/25 03:00 04/30/25 08:01 04/30/25 08:01 04/30/25 08:00 04/30/25 08:01
Intake and Output
04/29/25 04/30/25 05/01/25
06:59 06:59 06:59
Intake Total 1170 / 1170 1260 / 1260
Output Total 380 / 380 435 / 435
Balance 790 / 790 825 / 825
SaO2: 98
Nasal Cannula flow liters per minute: 2
Physical Exam
General: Respiratory Distress (n) and Comfortable
HEENT: Normocephalic
Cardiovascular: Regular Rhythm
Respiratory: Clear, Wheeze (n), Crackles (n), Rhonchi (n), Non-Labored Respirations and Accessory Resp Muscle Use (n)
GI: Soft, Non Distended and Non Tender
Neurology: Awake, Alert and No Motor Deficits
Skin: Warm, Good Color and Cyanosis (n)
Labs/Micro/Reports
Lab Data
04/30/25 04:03
04/30/25 04:03
--- NOTE | 2025-04-30 11:40 | W.PN.HOSP.TC ---
Today's Communication/Plan
-
cont acapella
wean off O2
Discontinue PICC as TF at appropriate rate
no further mgmt suggestions by air press operator
Assessment / Plan
Assessment / Plan
79yo F with PMHX of retrictive lung disease, anemia, HLD, RLS, came for robotic assisted lap repair with gastropexy on 04/15/2025, developed postOP hypoxia and hypotension, TPN initiated with PEG placement on 04/27/25.
A/P:
#Acute hypoxic and hypercapnic respiratory failure 2/2 atelectasis and restrictive lung disease
wean off O2
Incentive spirometer
Encourage ambulation
CT chest showed moderate pleural effusion: s/p thoracentesis on 04/21/25 - transudate, Cx neg
Pulm follows: Outpatient follow-up scheduled for 05/14 with [facility]
#Paraesophageal hernia
s/p repair
on PEG and CLD
advance diet as per GenSx
Plan to remove PICC when adequate calorie intake
#Anemia, mixed of chronic disease and ROHITH
Iron IV hile in hospital
chronic
monitor
#Shock, most likely vasodilation and hypovolemia postOP
resolved
#CONNIE
resolved
#HLD
#OA
cont home meds when able
#Paroxysmal Afib
new onset
Cardio followed
Rate/Rhythm control
Eliquis started
TSH WNL
telemetry
Full code
DVT ppx on eliquis
I have spent at least 51min reviewing chart, test results, communication with consultnats and providing direct patient care
Anticipated Discharge: > 48 hours
Subjective/Interval History
-
Date of Service: April 30, 2025
Objective Data
-
Labs:
Laboratory Results
04/30/25
04:03
WBC 8.0
Hgb 9.9 L
Hct 30.4 L
Plt Count 242
Sodium 131 L
Potassium 4.9
Chloride 94 L
Carbon Dioxide 35 H
BUN 17
Creatinine 0.5 L
Glucose 132 H
Calcium 8.7
Total Bilirubin 0.4
AST 21
ALT 13
Alkaline Phosphatase 89
Vital Signs:
Vital Signs
Temp Pulse Resp BP Pulse Ox
98.0 F 70 15 126/67 98
04/30/25 03:00 04/30/25 08:01 04/30/25 08:01 04/30/25 08:00 04/30/25 10:38
I&O
04/29/25 04/30/25 05/01/25
06:59 06:59 06:59
Intake Total 1170 / 1170 1260 / 1260
Output Total 380 / 380 435 / 435
Balance 790 / 790 825 / 825
Review of Systems
-
History Source: Patient
All other systems: Reviewed and negative
Physical Exam
-
General: No Apparent Distress
HEENT: Normocephalic
Neuro: Awake, Alert, Oriented and AO x 3
Psych: Calm
[2025-04-30] MEDS: REQUIP 2 MG PO (11:56)
[2025-04-30] MEDS: FERRLECIT 110 MG IV (14:15)
--- NOTE | 2025-04-30 14:45 | VNURNOTE ---
Late entry: spoke with patient and spouse, and 2 daughters at bedside Fri 04/26. Spouse adamant that pt will go home -refusing SNF. New PEG tube placed this admission. Discussed with spouse need for HOB elevation during & after feedings. Offered
to order a hospital bed, spouse agreeable.
O2 being weaned. Unclear if bipap needed for home. Per chart review ordered PRN and has not been used since 04/27.
Hospital bed Rx, clinicals faxed to Jailene at [facility] fax # [phone].
CM updated.
--- NOTE | 2025-04-30 15:56 | CM ---
In preparation for discharge to home with peg tube, medical records and request for Osmolite bolus feeds has been faxed to [facility].
[2025-04-30] MEDS: TYLENOL 500 MG PO (20:13)
[2025-04-30] MEDS: REQUIP 0.5 MG PO (20:13)
[2025-05-01] VITALS (14 sets, daily range): BP systolic 96–133; BP diastolic 54–82; PULSE 89; O2SAT 94; BMI 21.1
--- NOTE | 2025-05-01 00:41 | PTCARENOTE ---
Pt AAOx3 Pt had complaints of ache in right hip/side area. Pt personal bead warmer applied and prn Tylenol given. reassessment Pt found relief. Pt has no other complaints at this time. Pt appearing to tolerate TF well, 10 ml residual Pt has no
complaints of nausea at this time.
--- NOTE | 2025-05-01 02:57 | DOWNTIME ---
There was a [email or web address] Client [employer] Judge Downtime on 05/01/2025 from 0100 to 05/01/2025 at 0235. Downtime documentation of patient's care, including medication administrations, has been reconciled in the electronic record per guidelines. Refer to the
patient's paper chart under the miscellaneous tab to see printed paper medication records and downtime forms.
[2025-05-01 05:17] LABS: Blood Urea Nitrogen 17 mg/dl (7-17); Calcium 9.0 mg/dl (8.4-10.2); Carbon Dioxide 34 mmol/L (22-30); Chloride 95 mmol/L (98-107); Estimated Creatinine Clearance 61 ml/min; Glucose 137 mg/dl (70-99); Potassium 4.7 mmol/L (3.5-5.1); Sodium 132 mmol/L (135-145); eGFR > 60.00
--- NOTE | 2025-05-01 07:26 | W.PN.GS2 ---
Today's Communication / Plan
-
`
Assessment / Plan
-
Assessment: 79 y/o female h/o Hypertension, mild aortic stenosis, moderate to severe tricuspid valve regurgitation, restless legs, severe DJD with scoliosis
POD #16 s/p robo assisted lap repair type IV PEH with gastropexy;EDG
PPD #5 EGD with PEG placement on 04/26/25 Patulous, presbyesophagus with some liquid/food debris refluxing back from stomach noted
Afib with RVR on 04/20, started on AC and diltiazem (with improvement) -> sinus with occasional self limiting Afib
Hypoxia requiring intubation on 04/20, extubated less than 24h later; s/p right thoracentesis 04/21. Still requiring O2 but weaning down on requirement
Hypercarbic respiratory failure improved with BIPAP, off bipap since evening of 04/28 -> resolved
TF at goal
stable hyponatremia
Plan: trial of bolus feeding Osmolite 1.2 1 can QID + full liquid diet and ensure daily
picc line dc'd
Appreciate pulm/cardiology/hospitalist assistance with ongoing post op medical care
bowel regiment with miralax
monitor RADHA outputs (serous and minimal currently) - will remove prior to d/c
protonix PO for GIp
dispo planning - hopeful for dc home with VN/therapy services tuesday
Subjective Data
-
Date of Service: May 01, 2025
pt seen and examined
improving a bit each day
participated in PT and ST yesterday and was OOBTC most of the day
slept well overnight
Objective Data
-
Intake and Output
04/30/25 05/01/25 05/02/25
06:59 06:59 06:59
Intake Total 1260 / 1260 660 / 660
Output Total 435 / 435 300 / 300
Balance 825 / 825 360 / 360
Intake:
Oral fluids 720 / 720
Tube feeding 290 / 290 660 / 660
Feeding tube flush amount 250 / 250
Output:
Drain Output (Total) 200 / 200
Left Upper Abdomen Elia- 200 / 200
Rouse
Urine, Voided 400 / 400 100 / 100
Other:
Number of approximated SMALL 1 1
amounts of urine
Number of approximated MODERATE 1 3
amounts of urine
Number of approximated LARGE 1
amounts of urine
How many times incontinent 1
MODERATE amount urine
Vital Signs
Temp Pulse Resp BP Pulse Ox
98.0 F 78 22 101/60 94
05/01/25 07:18 05/01/25 02:00 05/01/25 02:00 05/01/25 02:00 05/01/25 02:00
Lab Results
04/30/25 04:03
05/01/25 04:46
Calcium 9.0 mg/dl (8.4-10.2) 05/01/25 04:46
Phosphorus 3.4 mg/dl (2.5-4.5) 04/30/25 04:03
Magnesium 1.8 mg/dl (1.6-2.3) 04/30/25 04:03
Total Bilirubin 0.4 mg/dl (0.2-1.3) 04/30/25 04:03
Direct Bilirubin 0.2 mg/dl (0.0-0.4) 04/30/25 04:03
AST 21 U/L (14-36) 04/30/25 04:03
ALT 13 U/L (0-35) 04/30/25 04:03
Alkaline Phosphatase 89 U/L (38-126) 04/30/25 04:03
Total Protein 6.2 g/dl (6.3-8.2) L 04/30/25 04:03
Albumin 3.0 g/dl (3.5-5.0) L 04/30/25 04:03
Physical Exam
-
NAD AAOx3
ABD: soft, ND, NTTP
RADHA serous
PEG in place, clean
--- NOTE | 2025-05-01 07:52 | W.PN.HOSP.TC ---
Today's Communication/Plan
-
continue current medciations at home upon d/c. 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
Assessment / Plan
Assessment / Plan
79yo F with PMHX of retrictive lung disease, anemia, HLD, RLS, came for robotic assisted lap repair with gastropexy on 04/15/2025, developed postOP hypoxia and hypotension, TPN initiated with PEG placement on 04/27/25.
A/P:
#Acute hypoxic and hypercapnic respiratory failure 2/2 atelectasis and restrictive lung disease
wean off O2
Incentive spirometer
Encourage ambulation
CT chest showed moderate pleural effusion: s/p thoracentesis on 04/21/25 - transudate, Cx neg
Pulm follows: Outpatient follow-up scheduled for 05/14 with [facility]
#Paraesophageal hernia
s/p repair
on PEG and CLD
advance diet as per GenSx
Plan to remove PICC when adequate calorie intake
#Anemia, mixed of chronic disease and ROHITH
Iron IV hile in hospital
chronic
monitor
#Shock, most likely vasodilation and hypovolemia postOP
resolved
#CONNIE
resolved
#HLD
#OA
cont home meds when able
#Paroxysmal Afib
new onset
Cardio followed
Rate/Rhythm control
Eliquis started
TSH WNL
telemetry
Full code
DVT ppx on eliquis
I have spent at least 51min reviewing chart, test results, communication with consultnats and providing direct patient care
Anticipated Discharge: 24 - 48 hours
Subjective/Interval History
-
Date of Service: May 01, 2025
Objective Data
-
Labs:
Laboratory Results
05/01/25
04:46
Sodium 132 L
Potassium 4.7
Chloride 95 L
Carbon Dioxide 34 H
BUN 17
Creatinine 0.5 L
Glucose 137 H
Calcium 9.0
Vital Signs:
Vital Signs
Temp Pulse Resp BP Pulse Ox
98.0 F 78 22 101/60 94
05/01/25 07:18 05/01/25 02:00 05/01/25 02:00 05/01/25 02:00 05/01/25 02:00
I&O
04/30/25 05/01/25 05/02/25
06:59 06:59 06:59
Intake Total 1260 / 1260 660 / 660
Output Total 435 / 435 300 / 300
Balance 825 / 825 360 / 360
Review of Systems
-
History Source: Patient
All other systems: Reviewed and negative
Physical Exam
-
General: No Apparent Distress
HEENT: Normocephalic
Respiratory: Clear to Auscultation
GI: Soft, Nontender, Nondistended and Peg Tube
Neuro: Awake, Alert, Oriented and AO x 3
Psych: Calm
[2025-05-01] MEDS: CARDIZEM CD 120 MG PO (08:42)
[2025-05-01] MEDS: PROTONIX 40 MG PO (08:42)
[2025-05-01] MEDS: ELIQUIS 2.5 MG TUBE ×2 (08:42→19:35)
[2025-05-01] MEDS: MIRALAX PO (08:43)
--- NOTE | 2025-05-01 10:24 | W.PN.PUL.V3 ---
Today's Communication / Plan
-
Continue nutrition and physical therapy.
Attempt to wean oxygen-assess discharge supplemental oxygen needs prior to discharge.
Monitor for pleural fluid reaccumulation and repeat thoracentesis if needed.
Reviewed with at the bedside
Assessment
-
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
and hypercapnia on BiPAP-pulmonary consulted for hypercapnia shortness of breath 04/19/2025.
04/20/10. Patient overnight developed worsening hypoxia initially required mid flow later on switched to high flow as well as nonrebreather. In view of worsening respiratory status, she was transferred to ICU and emergently intubated and
mechanically ventilated on 04/20/2025.
Paraesophageal hernia status post laparoscopic repair
Mild chronic hypercapnia-VBG 04/18/2025--62/69/7.23 and VBG 04/19/2025--62/158/7.27
Restrictive lung disease
Mild normocytic anemia-hemoglobin 10.7
Mild hyperglycemia
Conditions present prior to admission:
Hypertension.
Hyperlipidemia.
GERD.
Restless leg syndrome.
Mild aortic stenosis.
Paraesophageal hernia status postrepair this admission.
Arthritis. Right ankle surgery 2004. Inguinal hernia repair small bowel resection 2022.
Assessment and plan:
#1. Acute encephalopathy with acute on chronic hypercapnic respiratory failure (04/23/25)
- 04/23, increased CO2 retention overnight, BIPAP initiated . Continued to have hypercapnia, switched to V60, AVAPS with significant improvement
- 04/26, doing well on AVAPS nightly and nasal cannula during daytime.
- 04/27. switched to BIPAP 15/6 nightly and when napping and Nasal canula day time. Doing well. Transfer to IMU.
- 04/28, did not use BIPAP overnight, doing well. VBG at baseline. Switch to PRN BIPAP
- Baseline severe restriction due to large hiatal hernia, kyphosis. Now post op atelectasis, pleura effusion and likely additional nocturnal hypoventilation. On incentive spirometry, patient barely able to pull in 500 ml.
- Sit more in chair as tolerated, increase activity, physical therapy
- In view of right lower lobe atelectasis, continue hypertonic saline 3%, 3 times daily nebulized along with albuterol. Flutter valve
- Patient has been counseled regarding use of incentive spirometry, PT, OT, increase activity as tolerated
- Overall respiratory status continues to be slowly improving.
- CXR 04/29/2025-stable, moderate bilateral pleural effusions
#1a. Acute hypoxic and hypercapnic respiratory failure, worsened overnight (04/20/2025)
- Patient had been on mid flow, subsequently high flow and later on required nonrebreather in addition. Intubated on 04/21/2025- extubated 04/22/2025
- Bilateral pulmonary opacities concerning for atelectasis versus pneumonia along with bilateral pleural effusions. Also patient has baseline severe restrictive lung disease due to large hiatal hernia intrathoracic.
- Continues to be afebrile with normal WBC count. Pulmonary opacities more likely compressive atelectasis rather than pneumonia. Off antibiotics now.
#2. Bilateral pleural effusions, R>L
- Right sided thoracentesis, bedside, 04/21/25-straw colored 500 ml fluid removed. LDH 153, transudate by LDH criterial. Borderline exudate by Protein criteria. Since she had received diuresis earlier, more like pseudo-exudate. Cultures negative so
far. Suspect related to volume overload considering elevated BNP as well.
- BNP >4000, ? related to HFpEF. Developing trace edema bilaterally. PRN Lasix.
- CXR 04/29/2025-stable bilateral pleural effusions
#3. Baseline severe restrictive disease
- Restrictive lung disease at baseline due to large hiatal hernia intrathoracic.
- At baseline patient has mild chronic hypercapnia due to the restrictive lung disease
#4. Paroxysmal atrial fibrillation with RVR
- Cardiology service on case, correspondence reviewed. Cardizem infusion switched to oral Cardizem long acting formulation.
- Eliquis resumed.
#5. Large intra-thoracic hiatal hernia
- S/p laparoscopic repair, 04/2025. Management per surgery service
- Sub-optimal PO intake. Initiated TPN via PICC on 04/23
- s/p feeding tube placement 04/26, TF initiated, weaned off TPN
#6. Shock.
- Patient developed hypotension post intubation. Suspect partly related to sedation medications as well as intubation with underlying mild pulmonary hypertension.
- Off levophed now
- Procalcitonin normal, discontinued antibiotics
- Echocardiogram reviewed, LVEF is 65 to 70%. BNP however significantly elevated.
DVT prophylaxis- Eliquis
GI prophylaxis-on pantoprazole
Nutrition per surgery
Physical therapy/Occupational Therapy
The patient saw Perri STUART/Dr. Colon on and Dr. Morales on 02/19/2025-recommend follow-up after hospitalization
Dr. Galicia updated patient's and son at bedside 04/29/2025, and again on 04/30/25 and again on 05/01/25
Outpatient follow-up scheduled with [facility] pulmonary, on 05/14/25
Diagnostic data:
CXR 12/09/2024: Large hiatal hernia with increased left basilar opacity which may represent pneumonia or increased chronic atelectasis/scarring.
Chest x-ray 04/18/2025-extremely low lung volumes, tiny bilateral pleural effusions
Chest x-ray 04/18/2025-increased bibasilar opacifications may represent bilateral pleural effusions with adjacent atelectasis and/or pneumonia
VSE 11/28/2024: No aspiration.
CT chest 11/27/2024: Massive hiatal hernia containing entire stomach and mid transverse colon. Large amount of subpleural airspace consolidation in the left lower lobe adjacent to the hiatal hernia which is likely chronic compressive atelectasis and
scarring. Small to moderate-sized airspace consolidations in the superior segment of the right lower lobe and anterior segment of the right upper lobe which is most likely multifocal pneumonia. Moderate subpleural airspace consolidation in the right
lower lobe, either compressive atelectasis or pneumonia. Small bilateral pleural effusions. Moderate to severe air distention of the esophagus proximal to the hiatal hernia. Mild cardiomegaly. Severely exaggerated upper thoracic kyphosis and
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
CT chest 01/16/2025-interval resolution of previously seen anterior right upper lobe pneumonia, improved bilateral lower lobe and right middle lobe atelectasis/scarring
Echocardiogram 11/27/2024-EF 65-70%, mild aortic stenosis, SHANNAN 1.7 cm, PA systolic estimated 40-25
PFT 02/19/2025�Postbronchodilator FEV1 1.16 L, 73% of predicted.� FVC 1.57 L, 73% of predicted.� FEV1/FVC 74.��Lung volumes.� Total lung capacity reduced at 2.91 L, 67% of predicted. Diffusion capacity.� Reduced at 7.44, 43% of predicted, when
adjusted for alveolar volume to 68% of predicted.
6MWT 12/19/24: At rest, O2 100% on room air, heart rate 81. With ambulation, O2 aureliano 99%, max heart rate 134. 1/10 on dyspnea scale. Ambulated 300 feet.
Subjective Data
-
Date of Service:
Date of Service: May 01, 2025
Chief Complaint: Pulmonary Follow Up and Dyspnea Follow Up
Subjective:
Feels better and stronger, less short of breath, minimal cough, no chest pain or abdominal pain
Review of Systems
General: Other ( per HPI )
Objective Data
Data Reviewed
Vital Signs / I&O:
Vital Signs
Temp Pulse Resp BP Pulse Ox
98.0 F 85 22 117/58 94
05/01/25 07:18 05/01/25 08:42 05/01/25 02:00 05/01/25 08:42 05/01/25 02:00
Intake and Output
04/30/25 05/01/25 05/02/25
06:59 06:59 06:59
Intake Total 1260 / 1260 660 / 660
Output Total 435 / 435 300 / 300
Balance 825 / 825 360 / 360
SaO2: 94
Nasal Cannula flow liters per minute: 1
Physical Exam
General: Respiratory Distress (n) and Comfortable
HEENT: Normocephalic
Cardiovascular: Regular Rhythm
Respiratory: Clear, Wheeze (n), Crackles (n), Rhonchi (n), Non-Labored Respirations and Accessory Resp Muscle Use (n)
GI: Soft, Non Distended and Non Tender
Neurology: Awake, Alert and No Motor Deficits
Skin: Warm, Good Color and Cyanosis (n)
Labs/Micro/Reports
Lab Data
04/30/25 04:03
05/01/25 04:46
--- NOTE | 2025-05-01 10:58 | CM ---
Addendum entered by Carolyn Kemp 05/01/25 15:17:
Theodora from [facility] to call patient and discuss teaching and plan for peg tube. Patient may need home O2 assessment pending physician assessment.
Original Note:
Patient seen at bedside in IMU with patient . Patient was referred to [facility] and cost of delivery for tube feeds is 40$ per delivery one time a month. Patient deductable is 4000.00. Patient asked about [facility] referral, hospital
bed and home O2 will need to be assessed closer to discharge. Patient has had [facility] in the past and would like to use them again. CM will continue to follow for discharge planning needs.
Plan; home with [facility]; [facility] for tube feeds; watch for home O2 and hospital bed.
[2025-05-01] MEDS: FERRLECIT 110 MG IV (13:36)
[2025-05-01] MEDS: REQUIP 2 MG PO (13:36)
--- NOTE | 2025-05-01 15:05 | VNURNOTE ---
Addendum entered by Stacey Presley RN 05/01/25 15:09:
PEG tube connector is [employer] - Theodora at [facility], [place] notified.
Original Note:
Follow up on hospital bed: Called [facility] - spoke with Emili - they are planning on home delivery tomorrow. Advised her to contact spouse to coordinate time.
Home 02 test pending closer to DC - will continue to follow.
--- NOTE | 2025-05-01 17:55 | PTCARENOTE ---
Patient with decreased oral appetite but trying to take in small amounts as tolerated. Continuous tube feed changed to bolus feeds today. asking questions in regard to tube care and management, education began
[2025-05-01] MEDS: REQUIP 0.5 MG PO (19:35)
--- NOTE | 2025-05-01 21:44 | PTCARENOTE ---
Unable to verify accuracy of vital signs saved from 399 to 1844 as RN was not present.
[2025-05-02] VITALS (13 sets, daily range): BP systolic 94–121; BP diastolic 54–88; PULSE 80; O2SAT 92; BMI 20.4
--- NOTE | 2025-05-02 06:00 | PTCARENOTE ---
No acute changes overnight. Pt tolerated osmolite bolus TF. Turning self in bed, assisted with pillows. sacrum pink intact and blanchable. no gi/gu complaints. no BM. ice chips provided. son stayed overnight. RADHA with 30cc serous output. lap sites
intact. 1L NC; encouraged IS/ acapella. Sp02 mid 90s. denies pain or nausea. call licea and tray table within reach. calls appropriately for assistance
[2025-05-02 06:35] LABS: Blood Urea Nitrogen 21 mg/dl (7-17); Calcium 8.8 mg/dl (8.4-10.2); Carbon Dioxide 34 mmol/L (22-30); Chloride 95 mmol/L (98-107); Estimated Creatinine Clearance 61 ml/min; Glucose 101 mg/dl (70-99); Potassium 4.9 mmol/L (3.5-5.1); Sodium 131 mmol/L (135-145); eGFR > 60.00
[2025-05-02] MEDS: CARDIZEM CD 120 MG PO (08:51)
[2025-05-02] MEDS: ELIQUIS 2.5 MG TUBE ×2 (08:51→19:34)
[2025-05-02] MEDS: MIRALAX PO (08:52)
[2025-05-02] MEDS: PROTONIX 40 MG PO (08:52)
--- NOTE | 2025-05-02 09:20 | VNURNOTE ---
Addendum entered by Stacey Presley RN 05/02/25 10:43:
Home 02 eval reviewed. Pt did not qualify for home 02.
Original Note:
Called [facility]. Confirmed with Cassandra that hosp bed is planned for home delivery today. Delivery time TBD. Advised to contact spouse on facesheet.
--- NOTE | 2025-05-02 09:25 | W.PN.GS2 ---
Today's Communication / Plan
-
`
Assessment / Plan
-
Assessment: 79 y/o female h/o Hypertension, mild aortic stenosis, moderate to severe tricuspid valve regurgitation, restless legs, severe DJD with scoliosis
POD #17 s/p robo assisted lap repair type IV PEH with gastropexy;EDG
PPD #6 EGD with PEG placement on 04/26/25 Patulous, presbyesophagus with some liquid/food debris refluxing back from stomach noted
Afib with RVR on 04/20, started on AC and diltiazem (with improvement) -> sinus with occasional self limiting Afib
Hypoxia requiring intubation on 04/20, extubated less than 24h later; s/p right thoracentesis 04/21. Still requiring O2 but weaning down on requirement
Hypercarbic respiratory failure improved with BIPAP, off bipap since evening of 04/28 -> resolved
stable hyponatremia
Plan: continue trial on soft diet with ensure and bolus feeding Osmolite 1.2 1 can QID PRN to supplement PO intake
picc line dc'd
Appreciate pulm/cardiology/hospitalist assistance with ongoing post op medical care
bowel regiment with miralax
monitor RADHA outputs (serous and minimal currently) - will remove prior to d/c
protonix PO for GIp
dispo planning - hopeful for dc home with VN/therapy services tuesday
Subjective Data
-
Date of Service: May 02, 2025
pt seen and examined
at bedside
feels well, offers no complaints
feels ready for discharge and looking forward to getting home
no nausea
sunita some PO ~30-50% meals; intermittent bolus feeding to supplement calories
+BMs yesterday, multiple loose
Objective Data
-
Intake and Output
05/01/25 05/02/25 05/03/25
06:59 06:59 06:59
Intake Total 660 / 660 1595 / 1595
Output Total 300 / 300 30 / 30
Balance 360 / 360 1565 / 1565
Intake:
Oral fluids 480 / 480
IV piggybacks 110 / 110
Tube feeding 660 / 660 755 / 755
Feeding tube flush amount 250 / 250
Output:
Drain Output (Total) 200 / 200 30 / 30
Left Upper Abdomen Elia- 200 / 200 30 / 30
Rouse
Urine, Voided 100 / 100
Other:
Number of approximated SMALL 1
amounts of urine
Number of approximated MODERATE 3 3
amounts of urine
Number of approximated LARGE 1 1
amounts of urine
Number of unmeasured liquid
stools
Rectum 3
Vital Signs
Temp Pulse Resp BP Pulse Ox
98.0 F 72 24 100/54 93
05/02/25 08:14 05/02/25 08:51 05/02/25 06:00 05/02/25 08:51 05/02/25 06:00
Lab Results
04/30/25 04:03
05/02/25 05:50
Calcium 8.8 mg/dl (8.4-10.2) 05/02/25 05:50
Phosphorus 3.4 mg/dl (2.5-4.5) 04/30/25 04:03
Magnesium 1.8 mg/dl (1.6-2.3) 04/30/25 04:03
Total Bilirubin 0.4 mg/dl (0.2-1.3) 04/30/25 04:03
Direct Bilirubin 0.2 mg/dl (0.0-0.4) 04/30/25 04:03
AST 21 U/L (14-36) 04/30/25 04:03
ALT 13 U/L (0-35) 04/30/25 04:03
Alkaline Phosphatase 89 U/L (38-126) 04/30/25 04:03
Total Protein 6.2 g/dl (6.3-8.2) L 04/30/25 04:03
Albumin 3.0 g/dl (3.5-5.0) L 04/30/25 04:03
Physical Exam
-
NAD AAOx3
ABD: soft, ND, NTTP
PEG site clean
RADHA with serous fluid
--- NOTE | 2025-05-02 10:19 | W.PN.PUL.V3 ---
Today's Communication / Plan
-
.
Respiratory status continued to slowly improve.
Continue supplemental option-assess discharge supplemental oxygen needs-told family she will likely need temporary supplemental oxygen at the time of discharge.
Monitor for pleural fluid reaccumulation
Assessment
-
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
and hypercapnia on BiPAP-pulmonary consulted for hypercapnia shortness of breath 04/19/2025.
04/20/10. Patient overnight developed worsening hypoxia initially required mid flow later on switched to high flow as well as nonrebreather. In view of worsening respiratory status, she was transferred to ICU and emergently intubated and
mechanically ventilated on 04/20/2025.
Paraesophageal hernia status post laparoscopic repair
Mild chronic hypercapnia-VBG 04/18/2025--62/69/7.23 and VBG 04/19/2025--62/158/7.27
Restrictive lung disease
Mild normocytic anemia-hemoglobin 10.7
Mild hyperglycemia
Conditions present prior to admission:
Hypertension.
Hyperlipidemia.
GERD.
Restless leg syndrome.
Mild aortic stenosis.
Paraesophageal hernia status postrepair this admission.
Arthritis. Right ankle surgery 2004. Inguinal hernia repair small bowel resection 2022.
Assessment and plan:
#1. Acute encephalopathy with acute on chronic hypercapnic respiratory failure (04/23/25)
- 04/23, increased CO2 retention overnight, BIPAP initiated . Continued to have hypercapnia, switched to V60, AVAPS with significant improvement
- 04/26, doing well on AVAPS nightly and nasal cannula during daytime.
- 04/27. switched to BIPAP 15/6 nightly and when napping and Nasal canula day time. Doing well. Transfer to IMU.
- 04/28, did not use BIPAP overnight, doing well. VBG at baseline. Switch to PRN BIPAP
- Baseline severe restriction due to large hiatal hernia, kyphosis. Now post op atelectasis, pleura effusion and likely additional nocturnal hypoventilation. On incentive spirometry, patient barely able to pull in 500 ml.
- Sit more in chair as tolerated, increase activity, physical therapy
- In view of right lower lobe atelectasis, continue hypertonic saline 3%, 3 times daily nebulized along with albuterol. Flutter valve
- Patient has been counseled regarding use of incentive spirometry, PT, OT, increase activity as tolerated
- Overall respiratory status continues to be slowly improving.
- CXR 04/29/2025-stable, moderate bilateral pleural effusions
#1a. Acute hypoxic and hypercapnic respiratory failure, worsened overnight (04/20/2025)
- Patient had been on mid flow, subsequently high flow and later on required nonrebreather in addition. Intubated on 04/21/2025- extubated 04/22/2025
- Bilateral pulmonary opacities concerning for atelectasis versus pneumonia along with bilateral pleural effusions. Also patient has baseline severe restrictive lung disease due to large hiatal hernia intrathoracic.
- Continues to be afebrile with normal WBC count. Pulmonary opacities more likely compressive atelectasis rather than pneumonia. Off antibiotics now.
#2. Bilateral pleural effusions, R>L
- Right sided thoracentesis, bedside, 04/21/25-straw colored 500 ml fluid removed. LDH 153, transudate by LDH criterial. Borderline exudate by Protein criteria. Since she had received diuresis earlier, more like pseudo-exudate. Cultures negative so
far. Suspect related to volume overload considering elevated BNP as well.
- BNP >4000, ? related to HFpEF. Developing trace edema bilaterally. PRN Lasix.
- CXR 04/29/2025-stable bilateral pleural effusions
#3. Baseline severe restrictive disease
- Restrictive lung disease at baseline due to large hiatal hernia intrathoracic.
- At baseline patient has mild chronic hypercapnia due to the restrictive lung disease
#4. Paroxysmal atrial fibrillation with RVR
- Cardiology service on case, correspondence reviewed. Cardizem infusion switched to oral Cardizem long acting formulation.
- Eliquis resumed.
#5. Large intra-thoracic hiatal hernia
- S/p laparoscopic repair, 04/2025. Management per surgery service
- Sub-optimal PO intake. Initiated TPN via PICC on 04/23
- s/p feeding tube placement 04/26, TF initiated, weaned off TPN
#6. Shock.
- Patient developed hypotension post intubation. Suspect partly related to sedation medications as well as intubation with underlying mild pulmonary hypertension.
- Off levophed now
- Procalcitonin normal, discontinued antibiotics
- Echocardiogram reviewed, LVEF is 65 to 70%. BNP however significantly elevated.
DVT prophylaxis- Eliquis
GI prophylaxis-on pantoprazole
Nutrition per surgery
Physical therapy/Occupational Therapy
The patient saw Perri STUART/Dr. Colon and Dr. Morales on 02/19/2025-recommend follow-up after hospitalization
Dr. Galicia updated patient's and son at bedside 04/29/2025, and again on 04/30/25 and again on 05/01/25 as well as 05/02/25
Outpatient follow-up scheduled with [facility] pulmonary, on 05/14/25
Diagnostic data:
CXR 12/09/2024: Large hiatal hernia with increased left basilar opacity which may represent pneumonia or increased chronic atelectasis/scarring.
Chest x-ray 04/18/2025-extremely low lung volumes, tiny bilateral pleural effusions
Chest x-ray 04/18/2025-increased bibasilar opacifications may represent bilateral pleural effusions with adjacent atelectasis and/or pneumonia
VSE 11/28/2024: No aspiration.
CT chest 11/27/2024: Massive hiatal hernia containing entire stomach and mid transverse colon. Large amount of subpleural airspace consolidation in the left lower lobe adjacent to the hiatal hernia which is likely chronic compressive atelectasis and
scarring. Small to moderate-sized airspace consolidations in the superior segment of the right lower lobe and anterior segment of the right upper lobe which is most likely multifocal pneumonia. Moderate subpleural airspace consolidation in the right
lower lobe, either compressive atelectasis or pneumonia. Small bilateral pleural effusions. Moderate to severe air distention of the esophagus proximal to the hiatal hernia. Mild cardiomegaly. Severely exaggerated upper thoracic kyphosis and
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
CT chest 01/16/2025-interval resolution of previously seen anterior right upper lobe pneumonia, improved bilateral lower lobe and right middle lobe atelectasis/scarring
Echocardiogram 11/27/2024-EF 65-70%, mild aortic stenosis, SHANNAN 1.7 cm, PA systolic estimated 40-25
PFT 02/19/2025�Postbronchodilator FEV1 1.16 L, 73% of predicted.� FVC 1.57 L, 73% of predicted.� FEV1/FVC 74.��Lung volumes.� Total lung capacity reduced at 2.91 L, 67% of predicted. Diffusion capacity.� Reduced at 7.44, 43% of predicted, when
adjusted for alveolar volume to 68% of predicted.
6MWT 12/19/24: At rest, O2 100% on room air, heart rate 81. With ambulation, O2 aureliano 99%, max heart rate 134. 1/10 on dyspnea scale. Ambulated 300 feet.
Subjective Data
-
Date of Service:
Date of Service: May 02, 2025
Chief Complaint: Pulmonary Follow Up and Dyspnea Follow Up
Subjective:
Feels better every day, tolerating by mouth, physical therapy working with her, no increased shortness of breath, chest congestion
Review of Systems
General: Other ( per HPI)
Objective Data
Data Reviewed
Vital Signs / I&O:
Vital Signs
Temp Pulse Resp BP Pulse Ox
98.0 F 72 24 100/54 93
05/02/25 08:14 05/02/25 08:51 05/02/25 06:00 05/02/25 08:51 05/02/25 06:00
Intake and Output
05/01/25 05/02/25 05/03/25
06:59 06:59 06:59
Intake Total 660 / 660 1595 / 1595
Output Total 300 / 300 30 / 30
Balance 360 / 360 1565 / 1565
SaO2: 93
Nasal Cannula flow liters per minute: 2
Physical Exam
General: Respiratory Distress (n) and Comfortable
HEENT: Normocephalic
Cardiovascular: Regular Rhythm
Respiratory: Clear, Wheeze (n), Crackles (n), Rhonchi (n), Non-Labored Respirations and Accessory Resp Muscle Use (n)
GI: Soft, Non Distended and Non Tender
Neurology: Awake, Alert and No Motor Deficits
Skin: Warm, Good Color and Cyanosis (n)
Labs/Micro/Reports
Lab Data
04/30/25 04:03
05/02/25 05:50
--- NOTE | 2025-05-02 11:25 | W.PN.HOSP.TC ---
Today's Communication/Plan
-
home O2 assessment
Assessment / Plan
Assessment / Plan
79yo F with PMHX of retrictive lung disease, anemia, HLD, RLS, came for robotic assisted lap repair with gastropexy on 04/15/2025, developed postOP hypoxia and hypotension, TPN initiated with PEG placement on 04/27/25.
A/P:
#Acute hypoxic and hypercapnic respiratory failure 2/2 atelectasis and restrictive lung disease
wean off O2
Incentive spirometer
Encourage ambulation
CT chest showed moderate pleural effusion: s/p thoracentesis on 04/21/25 - transudate, Cx neg
Pulm follows: Outpatient follow-up scheduled for 05/14 with [facility]
#Paraesophageal hernia
s/p repair
on PEG and CLD
advance diet as per GenSx
Plan to remove PICC when adequate calorie intake
#Anemia, mixed of chronic disease and ROHITH
Iron IV hile in hospital
chronic
monitor
#Shock, most likely vasodilation and hypovolemia postOP
resolved
#CONNIE
resolved
#HLD
#OA
cont home meds when able
#mild hyponatremia
follow with BMP in 1 week with PCP
#Paroxysmal Afib
new onset
Cardio followed
Rate/Rhythm control
Eliquis started
TSH WNL
telemetry
Full code
DVT ppx on eliquis
I have spent at least 36min reviewing chart, test results, communication with consultants and providing direct patient care
Anticipated Discharge: Within 24 hours
Subjective/Interval History
-
Date of Service: May 02, 2025
Objective Data
-
Labs:
Laboratory Results
05/02/25
05:50
Sodium 131 L
Potassium 4.9
Chloride 95 L
Carbon Dioxide 34 H
BUN 21 H
Creatinine 0.5 L
Glucose 101 H
Calcium 8.8
Vital Signs:
Vital Signs
Temp Pulse Resp BP Pulse Ox
98.0 F 72 24 100/54 93
05/02/25 08:14 05/02/25 08:51 05/02/25 06:00 05/02/25 08:51 05/02/25 10:19
I&O
05/01/25 05/02/25 05/03/25
06:59 06:59 06:59
Intake Total 660 / 660 1595 / 1595
Output Total 300 / 300 30 / 30
Balance 360 / 360 1565 / 1565
Review of Systems
-
History Source: Patient
All other systems: Reviewed and negative
Physical Exam
-
General: No Apparent Distress
HEENT: Normocephalic
Respiratory: Clear to Auscultation
Cardiac: Regular Rhythm
GI: Soft, Nontender and Nondistended
Musculoskeletal: No Clubbing, No Cyanosis and No Edema
Neuro: Awake, Alert, Oriented and AO x 3
Psych: Calm
[2025-05-02] MEDS: REQUIP 2 MG PO (12:15)
[2025-05-02] MEDS: TYLENOL 500 MG PO (14:22)
[2025-05-02] MEDS: FERRLECIT 110 MG IV (14:22)
--- NOTE | 2025-05-02 15:30 | CM ---
Patient seen at bedside in IMU with patient . [facility] met with patient and [facility] also confirmed bed delivery today, Patient did not qualify for home O2. Patient for discharge home tomorrow with [facility], [facility] and tube feedings.
Physician aware. Per patient IMM completed and signed form on chart. Patient to be transported home in family car. Per [facility] request is for patient family to be transported home prior to noon. CM will continue to follow for discharge planning
needs.
Plan; home with [facility], [facility] to follow
[2025-05-02] MEDS: REQUIP 0.5 MG PO (19:34)
[2025-05-03] VITALS: BP 129/63
[2025-05-03 02:00] VITALS: BP 126/59
[2025-05-03 02:39] VITALS: BMI 20.4
[2025-05-03 04:00] VITALS: BP 101/49
--- NOTE | 2025-05-03 05:06 | PTCARENOTE ---
Patient and family having questions regarding discharge in terms of the supplies for the TF, clarification on how to check residual, when the RADHA drain will be removed and specific diet questions (when to give TF and what patient can eat). Patient
appears very anxious about discharge and receiving bolus TF at home. Patient again mentioned her embarrassment of large amount of stool incontinence upon first administration of bolus feeds on Tuesday. Patient also stated she wants to make DrAmelia "Moisés"Harshal proud so she will try to eat more food and be sure to drink her ensure today. Support and encouragement provided.
Reminded that visiting nurse will be available for assistance and any questions that arise. Patient and family very thankful.
[2025-05-03 06:00] VITALS: BP 110/60
[2025-05-03 08:00] VITALS: BP 113/66
[2025-05-03] MEDS: MIRALAX PO (09:04)
[2025-05-03] MEDS: PROTONIX 40 MG PO (09:13)
[2025-05-03] MEDS: ELIQUIS 2.5 MG TUBE (09:13)
[2025-05-03] MEDS: CARDIZEM CD 120 MG PO (09:13)
--- NOTE | 2025-05-03 09:50 | W.PN.HOSP.TC ---
Today's Communication/Plan
-
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
Assessment / Plan
Assessment / Plan
79yo F with PMHX of restrictive lung disease, anemia, HLD, RLS, came for robotic assisted lap repair with gastropexy on 04/15/2025, developed postOP hypoxia and hypotension, TPN initiated with PEG placement on 04/27/25.
Complicated by CHF, new Afib
A/P:
#Acute hypoxic and hypercapnic respiratory failure 2/2 atelectasis and restrictive lung disease as well as possible subacute HFpEF
wean off O2
Incentive spirometer
Encourage ambulation
CT chest showed moderate pleural effusion: s/p thoracentesis on 04/21/25 - transudate, Cx neg
Pulm follows: Outpatient follow-up scheduled for 05/14 with [facility]
#Paraesophageal hernia
s/p repair
on PEG and CLD
advance diet as per GenSx
Plan to remove PICC when adequate calorie intake
#Anemia, mixed of chronic disease and ROHITH
Iron IV hile in hospital
chronic
monitor
#Shock, most likely vasodilation and hypovolemia postOP
resolved
#CONNIE
resolved
#HLD
#OA
cont home meds when able
#mild hyponatremia
follow with BMP in 1 week with PCP
#Paroxysmal Afib
new onset
Cardio followed
Rate/Rhythm control
Eliquis started
TSH WNL
telemetry
Full code
DVT ppx on eliquis
I have spent at least 36min reviewing chart, test results, communication with consultants and providing direct patient care
Anticipated Discharge: Within 24 hours
Subjective/Interval History
-
Date of Service: May 03, 2025
Objective Data
-
Vital Signs:
Vital Signs
Temp Pulse Resp BP Pulse Ox
97.4 F 87 25 113/66 90
05/03/25 07:59 05/03/25 09:13 05/03/25 06:00 05/03/25 09:13 05/03/25 02:04
I&O
05/02/25 05/03/25 05/04/25
06:59 06:59 06:59
Intake Total 1595 / 1595
Output Total
Balance 1565 / 1565 -
Review of Systems
-
History Source: Patient
All other systems: Reviewed and negative
Physical Exam
-
General: Well Developed, Well Nourished and No Apparent Distress
HEENT: Normocephalic
GI: Soft, Nontender and Nondistended
Musculoskeletal: No Clubbing, No Cyanosis and No Edema
Neuro: Awake, Alert, Oriented and AO x 3
Psych: Calm
[2025-05-03 10:00] VITALS: BP 114/57
--- NOTE | 2025-05-03 10:10 | PTCARENOTE ---
Patient reports 'ready to go home.' Plan for DC today. Education demonstrated and taught back by for PEG tube including tube care, checking residual, and flushing. Will provide written education and demonstrate again before DC. Patient with
no complaints. VSS. RA. Prerna GARCIA CDI, see documentation. Patient currently up in chair with at bedside. VNs to see them now. Will closely monitor.
--- NOTE | 2025-05-03 10:32 | W.PN.PUL.V3 ---
Today's Communication / Plan
-
Increase activity
Nutrition
Assess discharge supplemental oxygen needs
Monitor for pleural fluid reaccumulation
Current pulmonary status stable-pulmonary will sign off-please call with questions
Assessment
-
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
and hypercapnia on BiPAP-pulmonary consulted for hypercapnia shortness of breath 04/19/2025.
04/20/10. Patient overnight developed worsening hypoxia initially required mid flow later on switched to high flow as well as nonrebreather. In view of worsening respiratory status, she was transferred to ICU and emergently intubated and
mechanically ventilated on 04/20/2025.
Paraesophageal hernia status post laparoscopic repair
Mild chronic hypercapnia-VBG 04/18/2025--62/69/7.23 and VBG 04/19/2025--62/158/7.27
Restrictive lung disease
Mild normocytic anemia-hemoglobin 10.7
Mild hyperglycemia
Conditions present prior to admission:
Hypertension.
Hyperlipidemia.
GERD.
Restless leg syndrome.
Mild aortic stenosis.
Paraesophageal hernia status postrepair this admission.
Arthritis. Right ankle surgery 2004. Inguinal hernia repair small bowel resection 2022.
Assessment and plan:
#1. Acute encephalopathy with acute on chronic hypercapnic respiratory failure (04/23/25)
- 04/23, increased CO2 retention overnight, BIPAP initiated . Continued to have hypercapnia, switched to V60, AVAPS with significant improvement
- 04/26, doing well on AVAPS nightly and nasal cannula during daytime.
- 04/27. switched to BIPAP 15/6 nightly and when napping and Nasal canula day time. Doing well. Transfer to IMU.
- 04/28, did not use BIPAP overnight, doing well. VBG at baseline. Switch to PRN BIPAP
- Baseline severe restriction due to large hiatal hernia, kyphosis. Now post op atelectasis, pleura effusion and likely additional nocturnal hypoventilation. On incentive spirometry, patient barely able to pull in 500 ml.
- Sit more in chair as tolerated, increase activity, physical therapy
- In view of right lower lobe atelectasis, continue hypertonic saline 3%, 3 times daily nebulized along with albuterol. Flutter valve
- Patient has been counseled regarding use of incentive spirometry, PT, OT, increase activity as tolerated
- Overall respiratory status continues to be slowly improving.
- CXR 04/29/2025-stable, moderate bilateral pleural effusions
Monitor for pleural fluid reaccumulation-no evidence subjectively or on exam at this point
#1a. Acute hypoxic and hypercapnic respiratory failure, worsened overnight (04/20/2025)
- Patient had been on mid flow, subsequently high flow and later on required nonrebreather in addition. Intubated on 04/21/2025- extubated 04/22/2025
- Bilateral pulmonary opacities concerning for atelectasis versus pneumonia along with bilateral pleural effusions. Also patient has baseline severe restrictive lung disease due to large hiatal hernia intrathoracic.
- Continues to be afebrile with normal WBC count. Pulmonary opacities more likely compressive atelectasis rather than pneumonia. Off antibiotics now.
#2. Bilateral pleural effusions, R>L
- Right sided thoracentesis, bedside, 04/21/25-straw colored 500 ml fluid removed. LDH 153, transudate by LDH criterial. Borderline exudate by Protein criteria. Since she had received diuresis earlier, more like pseudo-exudate. Cultures negative so
far. Suspect related to volume overload considering elevated BNP as well.
- BNP >4000, ? related to HFpEF. Developing trace edema bilaterally. PRN Lasix.
- CXR 04/29/2025-stable bilateral pleural effusions
#3. Baseline severe restrictive disease
- Restrictive lung disease at baseline due to large hiatal hernia intrathoracic.
- At baseline patient has mild chronic hypercapnia due to the restrictive lung disease
#4. Paroxysmal atrial fibrillation with RVR
- Cardiology service on case, correspondence reviewed. Cardizem infusion switched to oral Cardizem long acting formulation.
- Eliquis resumed.
#5. Large intra-thoracic hiatal hernia
- S/p laparoscopic repair, 04/2025. Management per surgery service
- Sub-optimal PO intake. Initiated TPN via PICC on 04/23
- s/p feeding tube placement 04/26, TF initiated, weaned off TPN
#6. Shock.
- Patient developed hypotension post intubation. Suspect partly related to sedation medications as well as intubation with underlying mild pulmonary hypertension.
- Off levophed now
- Procalcitonin normal, discontinued antibiotics
- Echocardiogram reviewed, LVEF is 65 to 70%. BNP however significantly elevated.
DVT prophylaxis- Eliquis
GI prophylaxis-on pantoprazole
Nutrition per surgery
Physical therapy/Occupational Therapy
The patient saw Perri STUART/Dr. Colon on and Dr. Morales on 02/19/2025-recommend follow-up after hospitalization
Dr. Galicia updated patient's and son at bedside 04/29/2025, and again on 04/30/25 and again on 05/01/25 as well as 05/02/25 and again on 05/03/2025
Outpatient follow-up scheduled with [facility] pulmonary, on 05/14/25
Diagnostic data:
CXR 12/09/2024: Large hiatal hernia with increased left basilar opacity which may represent pneumonia or increased chronic atelectasis/scarring.
Chest x-ray 04/18/2025-extremely low lung volumes, tiny bilateral pleural effusions
Chest x-ray 04/18/2025-increased bibasilar opacifications may represent bilateral pleural effusions with adjacent atelectasis and/or pneumonia
VSE 11/28/2024: No aspiration.
CT chest 11/27/2024: Massive hiatal hernia containing entire stomach and mid transverse colon. Large amount of subpleural airspace consolidation in the left lower lobe adjacent to the hiatal hernia which is likely chronic compressive atelectasis and
scarring. Small to moderate-sized airspace consolidations in the superior segment of the right lower lobe and anterior segment of the right upper lobe which is most likely multifocal pneumonia. Moderate subpleural airspace consolidation in the right
lower lobe, either compressive atelectasis or pneumonia. Small bilateral pleural effusions. Moderate to severe air distention of the esophagus proximal to the hiatal hernia. Mild cardiomegaly. Severely exaggerated upper thoracic kyphosis and
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
CT chest 01/16/2025-interval resolution of previously seen anterior right upper lobe pneumonia, improved bilateral lower lobe and right middle lobe atelectasis/scarring
Echocardiogram 11/27/2024-EF 65-70%, mild aortic stenosis, SHANNAN 1.7 cm, PA systolic estimated 40-25
PFT 02/19/2025�Postbronchodilator FEV1 1.16 L, 73% of predicted.� FVC 1.57 L, 73% of predicted.� FEV1/FVC 74.��Lung volumes.� Total lung capacity reduced at 2.91 L, 67% of predicted. Diffusion capacity.� Reduced at 7.44, 43% of predicted, when
adjusted for alveolar volume to 68% of predicted.
6MWT 12/19/24: At rest, O2 100% on room air, heart rate 81. With ambulation, O2 aureliano 99%, max heart rate 134. 1/10 on dyspnea scale. Ambulated 300 feet.
Subjective Data
-
Date of Service:
Date of Service: May 03, 2025
Chief Complaint: Pulmonary Follow Up and Dyspnea Follow Up
Subjective:
Doing well, no complaints of worsening shortness of breath, tolerating nutrition, physical therapy progressing, no chest congestion,
Review of Systems
General: Other (Per HPI)
Objective Data
Data Reviewed
Vital Signs / I&O:
Vital Signs
Temp Pulse Resp BP Pulse Ox
97.4 F 80 29 114/57 95
05/03/25 07:59 05/03/25 10:00 05/03/25 08:00 05/03/25 10:00 05/03/25 08:00
Intake and Output
05/02/25 05/03/25 05/04/25
06:59 06:59 06:59
Intake Total 1595 / 1595
Output Total
Balance 1565 / 1565 -10
SaO2: 95
Nasal Cannula flow liters per minute: 2
Physical Exam
General: Respiratory Distress (n) and Comfortable
HEENT: Normocephalic
Cardiovascular: Regular Rhythm
Respiratory: Clear, Wheeze (n), Crackles (n), Rhonchi (n), Non-Labored Respirations and Accessory Resp Muscle Use (n)
GI: Soft, Non Distended and Non Tender
Neurology: Awake, Alert and No Motor Deficits
Skin: Warm, Good Color and Cyanosis (n)
Labs/Micro/Reports
Lab Data
04/30/25 04:03
05/02/25 05:50
--- NOTE | 2025-05-03 11:08 | W.PN.GS2 ---
Today's Communication / Plan
-
d/c to home
Assessment / Plan
-
Assessment: 79 y/o female h/o Hypertension, mild aortic stenosis, moderate to severe tricuspid valve regurgitation, restless legs, severe DJD with scoliosis
POD #18 s/p robo assisted lap repair type IV PEH with gastropexy;EDG
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
Afib with RVR on 04/20, started on AC and diltiazem (with improvement) -> sinus with occasional self limiting Afib
Hypoxia requiring intubation on 04/20, extubated less than 24h later; s/p right thoracentesis 04/21.
Good O2 sats on RA
Hypercarbic respiratory failure improved with BIPAP, off bipap since evening of 04/28 -> resolved
stable hyponatremia
Plan: continue soft diet with ensure and bolus feeding Osmolite 1.2 1 can QID PRN to supplement PO intake
RADHA drain dc'd
Appreciate pulm/cardiology/hospitalist assistance with ongoing post op medical care
bowel regimen with miralax
protonix PO for GIp
dispo planning - hopeful for dc home with VN/therapy services today
Subjective Data
-
Date of Service: May 03, 2025
Pt seen and examined at bedside with Dr Caputo. at bedside and updated on care. Denies n/v. Tolerating diet. Denies pain. Still with some tiredness.
Objective Data
-
Intake and Output
05/02/25 05/03/25 05/04/25
06:59 06:59 06:59
Intake Total 1595 / 1595
Output Total 30 / 30
Balance 1565 / 1565 -10 / -10
Intake:
Oral fluids 480 / 480
IV piggybacks 110 / 110
Tube feeding 755 / 755
Feeding tube flush amount 250 / 250
Output:
Drain Output (Total)
Left Upper Abdomen Leia-
Rouse
Other:
Number of approximated SMALL 1
amounts of urine
Number of approximated MODERATE 3 1 1
amounts of urine
Number of approximated LARGE 1
amounts of urine
Number of unmeasured liquid
stools
Rectum 3
Vital Signs
Temp Pulse Resp BP Pulse Ox
97.4 F 80 29 114/57 95
05/03/25 07:59 05/03/25 10:00 05/03/25 08:00 05/03/25 10:00 05/03/25 10:32
Lab Results
04/30/25 04:03
05/02/25 05:50
Calcium 8.8 mg/dl (8.4-10.2) 05/02/25 05:50
Phosphorus 3.4 mg/dl (2.5-4.5) 04/30/25 04:03
Magnesium 1.8 mg/dl (1.6-2.3) 04/30/25 04:03
Total Bilirubin 0.4 mg/dl (0.2-1.3) 04/30/25 04:03
Direct Bilirubin 0.2 mg/dl (0.0-0.4) 04/30/25 04:03
AST 21 U/L (14-36) 04/30/25 04:03
ALT 13 U/L (0-35) 04/30/25 04:03
Alkaline Phosphatase 89 U/L (38-126) 04/30/25 04:03
Total Protein 6.2 g/dl (6.3-8.2) L 04/30/25 04:03
Albumin 3.0 g/dl (3.5-5.0) L 04/30/25 04:03
Physical Exam
-
NAD AAOx3
ABD: soft, ND, NTTP
PEG site clean
RADHA with serous fluid (removed)
Patient has a rodriguez catheter: No
Patient has a central line: No
--- NOTE | 2025-05-03 11:17 | CM ---
Patient seen at bedside with in IMU. Patient for discharge home today. Patient stated that she was excited to go home. [facility] to follow and [facility] for tube feedings. to provide transportation home and IMM completed yesterday. CM
will continue to follow for discharge planning needs.
Plan; home with [facility].
--- NOTE | 2025-05-03 11:29 | PTCARENOTE ---
Reviewed DC paperwork with patient and . All questions answered. Education provided on PEG tube. IV and tele removed. RADHA drain removed by surgery team. VSS. Patient to be taken to car by wheelchair and will drive them home.
--- NOTE | 2025-05-03 11:46 | W.DS.TRANS ---
Addendum entered and electronically signed by NARCISO Agosto 05/03/25 15:38:
dictated #[id number]
Original Note:
DC Summary - Senior Account Representative
-
Discharge Instructions:
Sleep Apnea Risk Low
Discharge Diagnosis/Procedures robotic assisted laparoscopic repair PEH with
gastropexy
Diet Other diet
Additional Diets Soft foods, eat small meals and supplement with
tube feedings as needed via your PEG tube. Your
estimated nutritional needs a day are: 1350
total calories with 65gms of protein
Use 1 can Osmolite 1.2 strength given by bolus
via your feeding tube up to 4 times a day as
needed to supplement meals. Each can has 13.2gm
of protein and 285 calories.
Water as needed via feeding tube if low oral
intake. Flush your tube daily with 100ml of
water if not using it. Flush with 50ml of water
before and after supplemental tube feedings.
Activity No strenuous activity
Additional Activity Avoid dislodging feeding tube (3cm at the skin),
if it becomes dislodged come to the emergency
room or call your surgeon to have it replaced.
Place a dry gauze dressing under or around the
bumper to prevent skin irritation and change
daily and as needed if soiled.
Driving Restrictions No driving
Bathing Restrictions OK to Shower
Blood Work BMP in 1 week with family doctor
Other Services VN
Wound Care glue at surgical sites typically peels off in 2-
3 weeks. cover old drain site with gauze/band
aide, change daily and as needed for drainage.
Instructions: How to give a tube feeding
How to care for a G tube or G button
Percutaneous endoscopic gastrostomy (PEG) (DC)
Stand-Alone Forms:
Changes to Home Medications: No
Discharge Medications:
DC Medications w/original date entered in [employer]
pravastatin 20 mg tablet 20 mg PO HS High Cholesterol 08/03/23
magnesium oxide 250 mg PO BID Electrolyte Repletion 11/26/24
ropinirole 2 mg tablet 2 mg PO NOON Neurological Condition 11/26/24
acetaminophen 325 mg tablet 650 mg (2 x 325 mg) PO Q6HPRN PRN mild pain/ fever>100.5F #0 tabs 12/02/24
Maalox 1 dose PO DAILY Gastrointestinal Issue 04/08/25
estradiol 0.01% (0.1 mg/gram) vaginal cream 1 g vaginal QWEEK Hormonal Agent 04/08/25
furosemide 20 mg tablet 20 mg PO DAILY PRN fluid retention 04/08/25
oxyquinoline 0.025 %-sodium lauryl sulfate 0.01 % vaginal gel (Trimo-Vang Jelly) ea vaginal .EVERY 2 WEEKS Itch and odor control 04/08/25
ropinirole 0.5 mg tablet 0.5 mg PO DAILY PRN restless leg syndrome 04/08/25
apixaban 2.5 mg tablet (Eliquis) 2.5 mg feeding tube BID #60 tabs 05/01/25
diltiazem HCl 120 mg capsule,extended release 24 hr 120 mg PO DAILY #30 caps 05/01/25
guaifenesin 100 mg/5 mL oral liquid 200 mg (10 mL) PO Q4HPRN PRN productive cough #473 mL 05/01/25
pantoprazole 40 mg tablet,delayed release 40 mg PO DAILY #30 tabs 05/01/25
Home Medication Changes
Pending Results: No
== END 2025-05-03 13:23 | disposition home health service (06) | DRG 326 ==
LOC: IMU 07:00
PROVIDERS: Clinical Nurse Specialist Family Health; Hospitalist; Internal Medicine; Nurse Practitioner; Nurse Practitioner Family; Nurse Practitioner Primary Care; Registered Nurse; ADMITTING PHYSICIAN Surgery; CONSULT PHYSICIAN Internal Medicine Cardiovascular Disease; CONSULT PHYSICIAN Internal Medicine Critical Care Medicine; OTHER PHYSICIAN Hospitalist
PROC: 0DS64ZZ Reposition Stomach, Percutaneous Endoscopic Approach (ICD-10-PCS; 2025-04-15)
PROC: 0BQT4ZZ Repair Diaphragm, Percutaneous Endoscopic Approach (ICD-10-PCS; 2025-04-15)
PROC: 8E0W4CZ Robotic Assisted Procedure of Trunk Region, Percutaneous Endoscopic Approach (ICD-10-PCS; 2025-04-15)
PROC: 5A09357 Assistance with Respiratory Ventilation, Less than 24 Consecutive Hours, Continuous Positive Airway Pressure (ICD-10-PCS; 2025-04-18)
PROC: 5A1935Z Respiratory Ventilation, Less than 24 Consecutive Hours (ICD-10-PCS; 2025-04-20)
PROC: 03HY32Z Insertion of Monitoring Device into Upper Artery, Percutaneous Approach (ICD-10-PCS; 2025-04-20)
PROC: 0BH17EZ Insertion of Endotracheal Airway into Trachea, Via Natural or Artificial Opening (ICD-10-PCS; 2025-04-20)
PROC: 0W993ZZ Drainage of Right Pleural Cavity, Percutaneous Approach (ICD-10-PCS; 2025-04-21)
PROC: 3E0436Z Introduction of Nutritional Substance into Central Vein, Percutaneous Approach (ICD-10-PCS; 2025-04-23)
PROC: 02HV33Z Insertion of Infusion Device into Superior Vena Cava, Percutaneous Approach (ICD-10-PCS; 2025-04-23)
PROC: 30233N1 Transfusion of Nonautologous Red Blood Cells into Peripheral Vein, Percutaneous Approach (ICD-10-PCS; 2025-04-25)
PROC: 0DH63UZ Insertion of Feeding Device into Stomach, Percutaneous Approach (ICD-10-PCS; 2025-04-26)
DX: K44.0 Diaphragmatic hernia with obstruction, without gangrene (principal); I50.31 Acute diastolic (congestive) heart failure; J96.01 Acute respiratory failure with hypoxia; J96.02 Acute respiratory failure with hypercapnia; T81.19XA Other postprocedural shock, initial encounter; K56.7 Ileus, unspecified; J98.11 Atelectasis; N17.9 Acute kidney failure, unspecified; E87.1 Hypo-osmolality and hyponatremia; J91.8 Pleural effusion in other conditions classified elsewhere; G93.40 Encephalopathy, unspecified; I48.0 Paroxysmal atrial fibrillation; J98.4 Other disorders of lung; K21.9 Gastro-esophageal reflux disease without esophagitis; D50.9 Iron deficiency anemia, unspecified; D63.8 Anemia in other chronic diseases classified elsewhere; E78.00 Pure hypercholesterolemia, unspecified; R68.0 Hypothermia, not associated with low environmental temperature; R33.9 Retention of urine, unspecified; R73.9 Hyperglycemia, unspecified; E16.2 Hypoglycemia, unspecified; R19.7 Diarrhea, unspecified; E83.42 Hypomagnesemia; E83.51 Hypocalcemia; R13.10 Dysphagia, unspecified; E87.5 Hyperkalemia; I11.0 Hypertensive heart disease with heart failure; Y83.8 Other surgical procedures as the cause of abnormal reaction of the patient, or of later complication, without mention of misadventure at the time of the procedure; E83.39 Other disorders of phosphorus metabolism; K22.89 Other specified disease of esophagus; G25.81 Restless legs syndrome; I07.1 Rheumatic tricuspid insufficiency; M19.90 Unspecified osteoarthritis, unspecified site; Z87.01 Personal history of pneumonia (recurrent); Z11.52 Encounter for screening for COVID-19
CPT/HCPCS: 36415; 36600; 71045; 71046; 71250; 80048; 80053; 80202; 82248; 82607; 82728; 82746; 82805; 82945; 82962; 83540; 83550; 83615; 83735; 83880; 84100; 84132; 84145; 84155; 84157; 84443; 84478; 84484; 85025; 85027; 85045; 85379; 85610; 85730; 86850; 86900; 86901; 86920; 87015; 87040; 87070; 87205; 87502; 87811; 88112; 88305; 89051; 92526; 92610; 93005; 93306; 94002; 94003; 94640; 94660; 94669; 97110; 97116; 97163; 97164; 97167; 97168; 97530; 97535; J2916; P9016

== ENCOUNTER 2025-08-10 22:02 | Inpatient (IN) | payer OTHER, SELFPAY ==
[2025-08-10 16:43] VITALS: BP 142/77
[2025-08-10 18:16] VITALS: BP 133/80
[2025-08-10 18:25] LABS: Venous Blood Gas B.E. 11.0 mmol/L (-4 to +4); Venous Blood Gas O2 Sat % 89.1 %
[2025-08-10 18:34] LABS: INR 1.17; PT 15.0 Sec (11.4-14.6)
[2025-08-10 18:35] LABS: APTT 42.2 Sec (23.4-35.0)
[2025-08-10 18:41] LABS: Hematocrit 35.7 % (37.0-47.0); Hemoglobin 11.7 g/dL (12.0-16.0); Mean Corp Hgb Conc. 32.8 g/dL (33.0-37.0); Mean Corpuscular Volume 92.5 fL (81.0-99.0); Nucleated Red Blood Cells % 0 %; Red Cell Dist. Width 16.7 % (11.5-14.5)
[2025-08-10 18:48] LABS: ALT (SGPT) 41 U/L (0-35); AST (SGOT) 42 U/L (14-36); Albumin 4.5 g/dl (3.5-5.0); Alkaline Phosphatase 135 U/L (38-126); Blood Urea Nitrogen 28 mg/dl (7-17); Calcium 10.0 mg/dl (8.4-10.2); Carbon Dioxide 35 mmol/L (22-30); Chloride 97 mmol/L (98-107); Glucose 106 mg/dl (70-99); Potassium 4.7 mmol/L (3.5-5.1); Sodium 136 mmol/L (135-145); Total Protein 8.9 g/dl (6.3-8.2); eGFR > 60.00
[2025-08-10 19:15] VITALS: BP 142/84
[2025-08-10 19:23] LABS: Platelet Count 74 10^3/uL (130-400)
--- NOTE | 2025-08-10 19:31 | ED.GENMED ---
History of Present Illness
<Gilles Khanna Jr., PA-C - Last Filed: 08/10/25 20:26>
General
Chief Complaint: Breathing Problem
Source: patient, spouse and family
Exam Limitations: none
Time Seen by Provider: 08/10/25 18:17
Nursing documentation reviewed up to this point in time: agreed with
History of Present Illness
History of Present Illness:
79-year-old female past medical history of aortic stenosis hypertension paroxysmal A-fib currently on Eliquis presenting to the emergency department today with concerns of worsening shortness of breath and hypoxia into the 80%. Seems to be
worsening over the past few days. She denies any specific chest pain does have some mild leg swelling. Denies any recent fevers or upper respiratory symptoms.
Past History
<Gilles Khanna Jr., PA-C - Last Filed: 08/10/25 20:26>
Past History
ED Past Medical History: GERD, HTN and Hypercholesterolemia
ED Past Surgical History: Gynecological, Orthopedic and Other (SBO)
Social History
Tobacco: Non-smoker
Alcohol: None
Drug: None
Personal:
Living: with family
Review of Systems
<Gilles Khanna Jr., PA-C - Last Filed: 08/10/25 20:26>
Review of Systems
Allergies reviewed?: Yes
All Other Systems: ROS reviewed and negative except as documented in HPI and ROS
Phy Exam
<Gilles Khanna Jr., PA-C - Last Filed: 08/10/25 20:26>
Physical Exam
Physical Exam:
GENERAL: Alert , in no apparent distress
EYE: pupils equal and reactive
NECK: Supple, no significant adenopathy.
ENT: o/p clr, mmm.
CARDIAC: Regular rate and rhythm .
LUNGS: Clear breath sounds bilaterally, no acute respiratory distress, no wheezes/rales/rhonchi
ABDOMEN: Soft, without focal tenderness, no r/g, no cvat
NEUROLOGICAL: Alert and oriented, no focal neuro deficits
SKIN: Warm and dry, skin intact.
MUSCULOSKELETAL: No edema, well perfused.
PSYCH: Normal and appropriate interaction.
Scores
<Gilles Khanna Jr., PA-C - Last Filed: 08/10/25 20:26>
Heart Failure Risk
Heart Failure Risk Score: Not Applicable
Course
<Gilles Khanna Jr., PA-C - Last Filed: 08/10/25 20:26>
Orders/Labs/Results
Orders:
Orders
08/10/25 16:46
EKG [Electrocardiogram (*1)] Urgent
Reason for Study: Shortness of Breath
EKG- Treatment ONCE
08/10/25 18:17
Complete Blood Count/With Diff Urgent
Comprehensive Metabolic Panel Urgent
NT-proBNP Urgent
PT/INR [Prothrombin Time] Urgent
PTT Urgent
Venous Blood Gas Urgent
%Oxygen/Room Air: 87
Chest [CR Chest - 2 Views ] Urgent
Comment:
Reason For Exam: sob
08/10/25 19:43
Furosemide [Lasix] 40 mg IV NOW STA
Abnormal Lab Results
08/10/25
18:17
WBC 4.2 L 10^3/uL
(4.8-10.8)
RBC 3.86 L 10^6/uL
(4.20-5.40)
Hgb 11.7 L g/dL
(12.0-16.0)
Hct 35.7 L %
(37.0-47.0)
MCHC 32.8 L g/dL
(33.0-37.0)
RDW 16.7 H %
(11.5-14.5)
Plt Count 74 L 10^3/uL
(130-400)
MPV 10.8 H fL
(7.4-10.4)
Absolute Lymphs (auto) 0.4 L 10^3/uL
(1.2-3.4)
Neutrophils % 82.1 H %
(42.2-75.2)
Lymphocytes % 10.0 L %
(20.5-51.1)
PT 15.0 H Sec
(11.4-14.6)
APTT 42.2 H Sec
(23.4-35.0)
VBG pCO2 58 H mmHg
(35-48)
VBG pO2 55 H mmHg
(30-50)
VBG HCO3 37.6 H mmol/L
(22-27)
Chloride 97 L mmol/L
(98-107)
Carbon Dioxide 35 H mmol/L
(22-30)
BUN 28 H mg/dl
(7-17)
Glucose 106 H mg/dl
(70-99)
AST 42 H U/L
(14-36)
ALT 41 H U/L
(0-35)
Alkaline Phosphatase 135 H U/L
(38-126)
Total Protein 8.9 H g/dl
(6.3-8.2)
08/10/25 18:17
08/10/25 18:17
Vital Signs
Initial and Last Documented VS:
Initial Vital Signs
Temp Pulse Resp BP Pulse Ox
36.3 C 58 16 142/77 94
08/10/25 16:43 08/10/25 16:43 08/10/25 16:43 08/10/25 16:43 08/10/25 16:43
Last Documented Vital Signs
Temp Pulse Resp BP Pulse Ox
36.3 C 56 15 155/86 95
08/10/25 16:43 08/10/25 20:15 08/10/25 20:15 08/10/25 20:00 08/10/25 20:15
<Yasir Gio Gonzalez, DO - Last Filed: 08/10/25 20:28>
Orders/Labs/Results
Orders:
Orders
08/10/25 16:46
EKG [Electrocardiogram (*1)] Urgent
Reason for Study: Shortness of Breath
EKG- Treatment ONCE
08/10/25 18:17
Complete Blood Count/With Diff Urgent
Comprehensive Metabolic Panel Urgent
NT-proBNP Urgent
PT/INR [Prothrombin Time] Urgent
PTT Urgent
Venous Blood Gas Urgent
%Oxygen/Room Air: 87
Chest [CR Chest - 2 Views ] Urgent
Comment:
Reason For Exam: sob
08/10/25 19:43
Furosemide [Lasix] 40 mg IV NOW STA
Abnormal Lab Results
08/10/25
18:17
WBC 4.2 L 10^3/uL
(4.8-10.8)
RBC 3.86 L 10^6/uL
(4.20-5.40)
Hgb 11.7 L g/dL
(12.0-16.0)
Hct 35.7 L %
(37.0-47.0)
MCHC 32.8 L g/dL
(33.0-37.0)
RDW 16.7 H %
(11.5-14.5)
Plt Count 74 L 10^3/uL
(130-400)
MPV 10.8 H fL
(7.4-10.4)
Absolute Lymphs (auto) 0.4 L 10^3/uL
(1.2-3.4)
Neutrophils % 82.1 H %
(42.2-75.2)
Lymphocytes % 10.0 L %
(20.5-51.1)
PT 15.0 H Sec
(11.4-14.6)
APTT 42.2 H Sec
(23.4-35.0)
VBG pCO2 58 H mmHg
(35-48)
VBG pO2 55 H mmHg
(30-50)
VBG HCO3 37.6 H mmol/L
(22-27)
Chloride 97 L mmol/L
(98-107)
Carbon Dioxide 35 H mmol/L
(22-30)
BUN 28 H mg/dl
(7-17)
Glucose 106 H mg/dl
(70-99)
AST 42 H U/L
(14-36)
ALT 41 H U/L
(0-35)
Alkaline Phosphatase 135 H U/L
(38-126)
Total Protein 8.9 H g/dl
(6.3-8.2)
08/10/25 18:17
08/10/25 18:17
Vital Signs
Initial and Last Documented VS:
Initial Vital Signs
Temp Pulse Resp BP Pulse Ox
36.3 C 58 16 142/77 94
08/10/25 16:43 08/10/25 16:43 08/10/25 16:43 08/10/25 16:43 08/10/25 16:43
Last Documented Vital Signs
Temp Pulse Resp BP Pulse Ox
36.3 C 56 15 155/86 95
08/10/25 16:43 08/10/25 20:15 08/10/25 20:15 08/10/25 20:00 08/10/25 20:15
<Gilles Khanna Jr., PA-C - Last Filed: 08/10/25 20:26>
MDM/Problems Addressed
MDM/Problems Addressed:
79-year-old female presenting to the emergency department today with concerns of low pulse ox and shortness of breath over the past few days at home. Here pulse ox in the high 80s at rest patient was placed on 2 L nasal cannula with improvement to
the mid 90s. Other vital signs are normal. Labs showing elevated bicarb. Chest x-ray showing low lung volume potential pleural effusion as well as some patchiness the remainder of the lungs. Patient was started on Lasix. Otherwise stable during
ER stay plan to admit for further assessment and monitoring.
<Gilles Khanna Jr., PA-C - Last Filed: 08/10/25 20:26>
*Pulse Oximetry
SaO2: 90
Oxygen Mode of Delivery: Room air
Patient hypoxic: yes (88)
*Critical Care Note
Total Time (30-74mins, 75-104mins- exclusive of procedures): Not Applicable
ED Attending Note
<Gilles Khanna Jr., PA-C - Last Filed: 08/10/25 20:26>
-
Portions of this chart may have been created with voice recognition software.� Occasional wrong word or��sound alike� substitutions may have occurred due to the inherent limitations of voice recognition software.
<Yasir Gonzalez DO - Last Filed: 08/10/25 20:28>
ED Attending Note
Patient seen and examined by attending physician: Yes
I performed the substantive portion of visit, reviewed & personally made and approve the management plan that is documented in note by myself or RADU.: Yes
ED Attending Note:
I evaluated the patient at bedside. The patient is mildly hypoxic with room air sats of 89%. VBG shows only mild elevation of pCO2 BNP is low. Some lower extremity edema noted. She has only been intermittently taking diuretic.
Discharge Plan
Departure
Patient Disposition: Admit
Date of Disposition: 08/10/25
Time of Disposition: 20:25
Admit to: Telemetry
Admit to doctor: whitney
Presentation/result/management discussed w/ accepting MD/DO: Hospitalist
Patient with high blood pressure during this ER visit?: No
Condition: Fair
Covid-19: Not Applicable
Discharge Problem:
Hypoxia, Pulmonary edema
Prescriptions:
No Action
pravastatin 20 mg Tablet
20 mg PO HS
magnesium oxide 250 mg magnesium Tablet
250 mg PO DAILY@1200
acetaminophen 325 mg Tablet
650 mg PO Q6HPRN PRN (Reason: mild pain/ fever>100.5F) Qty: 0 0RF
ropinirole 0.5 mg Tablet
0.5 mg PO HSPRN PRN (Reason: restless leg syndrome)
diltiazem HCl 120 mg Capsule,Extended Release 24hr
120 mg PO DAILY Qty: 30 0RF
pantoprazole 40 mg tablet,delayed release (DR/EC)
40 mg PO DAILY
Eliquis 2.5 mg tablet
2.5 mg PO BID
polyethylene glycol 3350 [Miralax] 17 gram Powder In Packet
17 g PO DAILYPRN PRN (Reason: constipation)
Theragen Tablet
1 tab PO DAILY@1200
ropinirole 2 mg Tablet
2 mg PO DAILY@1200
docusate sodium [Colace] 100 mg Capsule
100 mg PO DAILYPRN PRN (Reason: constipation)
Referrals:
Gilles Hameed CRNP [Family Provider]
Interventions
Interventions:
*Risk Screen - Suicide Last Done: 08/10/25 16:43
*General Assessment Last Done: 08/10/25 18:24
*Neglect/Abuse Screening Last Done: 08/10/25 16:43
*ED- Fall Risk Assessment Last Done: 08/10/25 16:43
*ED COVID-19 Vaccine History Last Done: 08/10/25 18:24
*ED Influenza Vaccine History Last Done: 08/10/25 18:24
ED- Cardiac Assessment Last Done: 08/10/25 18:24
ED- Pulmonary Assessment Last Done: 08/10/25 20:27
Discharge Date and Time
Print Language: SLOVENIAN
[2025-08-10] MEDS: LASIX 40 MG IV (19:58)
[2025-08-10 20:00] VITALS: BP 155/86
[2025-08-10 21:00] VITALS: BP 158/90
--- NOTE | 2025-08-10 21:22 | HPS.HSE ---
Family Physician
-
Family Physician: NARCISO Velasquez
Chief Complaint
-
Fatigue, Hypoxemia
History of Present Illness
Patient is an 79y F with PMH significant for hypertension, paroxysmal A-Fib and recent paraesophageal hernia repair who presents to ED for evaluation of worsening fatigue and noted hypoxemia at home. History obtained from patient and family at
the bedside. Family notes that patient has been gradually more and more fatigued with increased daytime somnolence and decreased activity over the past 1-2 weeks. She has not been using her incentive spirometer at home as directed and - when it is
used - she is getting only about 500cc of volume (had previously been closer to 1000 per family, but never at goal 1500).
Patient denies any significant cough, sore throat, fevers / chills, chest pain, palpitations, etc.
Family noted some persistent LE swelling. Her PCP advised that she take her 'PRN' furosemide daily x 5 days, elevate her LEs and wear TEDs stockings. She did these things with no improvement in her edema per family.
Today she seemed even more somnolent and family checked her SpO2 at home. This read 86-88% on room air and patient was brought to the ED for further evaluation.
Medical History
Past Medical History
Past Medical History: Reports Other
Additional Past Medical History:
Hypertension
Hiatal Hernia / GERD
Restrictive Lung Disease
Mild Chronic Hypercapnia
Restless Leg Syndrome
Paroxysmal Atrial Fibrillation (post-op)
Bilateral Pleural Effusions (chronic)
Past Surgical History: Reports Other
Additional Past Surgical History:
Robotic Assisted Paraesophageal Hernia Repair / Gastropexy (04/16/25)
PEG Placement (04/26/25)
Inguinal Hernia Repair / Partial Small Bowel Resection
Right Ankle Surgery
Social History
Tobacco: Non-smoker
Alcohol: None
Drug: None
Personal:
Living: With Family
Family History
Family History: Not pertinent
Allergies / Home Medications
Allergies reflects when Allergies were last updated in [employer].
Home Medications with original date entered in [employer]
Allergy/Medication List:
Allergies
Allergy/AdvReac Type Severity Reaction Status Date / Time
hydrochlorothiazide Allergy Swelling Verified 08/10/25 16:42
paroxetine Allergy passed out Verified 08/10/25 16:42
Home Medications
pravastatin 20 mg tablet 20 mg PO HS High Cholesterol 08/03/23
magnesium oxide 250 mg PO DAILY@1200 Electrolyte Repletion 11/26/24
acetaminophen 325 mg tablet 650 mg (2 x 325 mg) PO Q6HPRN PRN mild pain/ fever>100.5F #0 tabs 12/02/24
ropinirole 0.5 mg tablet 0.5 mg PO HSPRN PRN restless leg syndrome 04/08/25
diltiazem HCl 120 mg capsule,extended release 24 hr 120 mg PO DAILY #30 caps 05/01/25
apixaban 2.5 mg tablet (Eliquis) 2.5 mg PO BID 08/10/25
docusate sodium 100 mg capsule (Colace) 100 mg PO DAILYPRN PRN constipation 08/10/25
pantoprazole 40 mg tablet,delayed release 40 mg PO DAILY Gastrointestinal Issue 08/10/25
polyethylene glycol 3350 17 gram oral powder packet (Miralax) 17 g PO DAILYPRN PRN constipation 08/10/25
ropinirole 2 mg tablet 2 mg PO DAILY@1200 08/10/25
therapeutic multivitamin 1 tab PO DAILY@1200 08/10/25
Review of Systems
-
History Source: Patient and Family
A 12 point ROS was completed and negative except as noted: Yes
Constitutional: Reports Fatigue; Denies Fever or Chills
EENT: Denies Sore Throat
Respiratory: Reports Trouble Breathing; Denies Cough
Cardiac: Denies Chest Pain, Palpitations or Syncope
Abdomen/GI: Reports Anorexia; Denies Abdominal Pain, Nausea, Vomiting or Diarrhea
: Reports Frequency; Denies Dysuria or Flank Pain
Musculoskeletal: Reports Edema; Denies Joint Pain
Neurological: Denies Dizzy or Headache
Psych: Denies Depression or Anxiety
Physical Exam
Vital Signs
Vital Signs
Temp Pulse Resp BP Pulse Ox
97.4 F 56 15 155/86 96
08/10/25 16:43 08/10/25 20:15 08/10/25 20:15 08/10/25 20:00 08/10/25 20:27
Physical Exam
General: Other (Elderly 79y F in no acute distress.)
HEENT: Moist mucous membranes, PERRLA and Other (Pos HJR.)
Respiratory: Other (Decreased BS at bases - otherwise clear. No W/R/R.)
Cardiac: S1/S2, Regular Rhythm and Murmur (II/ QUIQUE)
GI: Soft, Non Tender, Non Distended and Normal Bowel Sounds
Musculoskeletal: No Clubbing, No Cyanosis and Other (Trace pedal edema.)
Neuro: AO x 3
Laboratory Results
-
08/10/25 18:17
08/10/25 18:17
Laboratory Results
PT 15.0 Sec (11.4-14.6) H 08/10/25 18:17
INR 1.17 08/10/25 18:17
APTT 42.2 Sec (23.4-35.0) H 08/10/25 18:17
Total Bilirubin 0.6 mg/dl (0.2-1.3) 08/10/25 18:17
AST 42 U/L (14-36) H 08/10/25 18:17
ALT 41 U/L (0-35) H 08/10/25 18:17
Alkaline Phosphatase 135 U/L (38-126) H 08/10/25 18:17
Impression/Plan
-
A/P: Patient is an 79y F with PMH significant for restrictive lung disease, chronic / mild hypercapnia and recent paraesophageal hernia repair who presents to ED for evaluation of fatigue and noted hypoxemia.
Acute Hypoxemic Respiratory Insufficiency
Atelectasis - Persistent
Small Bilateral Pleural Effusions
Restrictive Lung Disease
Chronic, Mild Hypercapnia
- Admit for further evaluation and treatment.
- Patient does not appear grossly volume overloaded, pleural effusions appear decreased from prior and BNP today is only 172.
- Low lung volumes, poor compliance with IS and poor performance on IS when it is used suggest persistent / progressive atelectasis.
- Note prior mention of chronic, mild hypercapnia as well.
- Patient required intubation during prior admission and was on BiPAP for a time following that. Continued outpatient use was considered.
- Patient may benefit from BiPAP inpatient / outpatient given persistent issues with decreased volumes, fatigue / mild hypercapnia, etc.
- Pulmonary evaluation for additional recommendations.
- Check COVID, Flu, etc for completeness though no new infectious symptoms, cough, etc.
- Encourage use of IS, Acapella, etc.
- PT / OT for increased activity in general.
- Follow for clinical improvement.
Chronic HFpEF
- No significant edema on my exam. Effusions decreased from prior. BNP = 172.
- LFTs are mildly abnormal and some HJR appreciated on exam.
- IV Lasix x 1 given in the ED.
- Echo done 04/2025 showed normal LVEF and mild - moderate TR. No need to repeat.
- Hold further diuretics for now and follow I/Os, daily weights, etc.
Abnormal LFTs
- ? med effect, passive congestion, etc.
- No GI complaints. Check abdominal US.
- Follow for changes.
Leukopenia / Thrombocytopenia
- New from prior admissions.
- No new medications since last discharge (04/2025).
- Hgb is stable / near usual pre-op baseline.
- Follow for any improvement / further changes in cell counts.
- Consider hematology evaluation if they worsen / persist.
Paroxysmal Atrial Fibrillation
- Stable. In NSR at present.
- Continue diltiazem and Eliquis.
Benign Hypertension
- Stable. Continue usual medications.
GERD / Hiatal Hernia
- s/p gastropexy 04/16/25.
- Continue PPI.
RLS
- Stable. Continue ropinirole.
DVT Prophylaxis: On Eliquis
Code Status: Full
[2025-08-10 21:44] LABS: D-Dimer 0.87 ug/mlFEU (0.00-0.50)
[2025-08-10 21:55] LABS: COVID-19 Antigen Negative (Negative)
[2025-08-10 22:00] VITALS: BP 161/89
[2025-08-10 23:02] VITALS: BMI 20.6
[2025-08-10] MEDS: PRAVACHOL 20 MG PO (23:26)
--- NOTE | 2025-08-10 23:40 | PTCARENOTE ---
Pt arrived to unit from ED on stretcher at 2235. Patient endorses generalized weakness & difficulty ambulating-patient pulled over to bed. Patient denies pain at this time. Family at bedside-notified of NPO status at 0000-agreeable to POC at this
time. VSS. Patient denies SOB. Call licea within reach, bed in lowest position and locked, patient has no further concerns at this time. Son remains at bedside with patient.
[2025-08-11] VITALS (39 sets, daily range): BP systolic 76–143; BP diastolic 50–79; PULSE 2–68; BMI 19.1
[2025-08-11 04:39] LABS: B.E. 11.9 mmol/L; O2 Saturation % 97.9 % (94-98); PO2 95 mmHg (83-108)
[2025-08-11 04:42] LABS: PCO2 75 mmHg (32-35)
[2025-08-11 04:43] LABS: HCO3 40.5 mmol/L (21-28)
[2025-08-11 07:37] LABS: Hematocrit 35.3 % (37.0-47.0); Hemoglobin 11.6 g/dL (12.0-16.0); Mean Corp Hgb Conc. 32.9 g/dL (33.0-37.0); Mean Corpuscular Volume 92.2 fL (81.0-99.0); Platelet Count 67 10^3/uL (130-400); Red Cell Dist. Width 16.5 % (11.5-14.5)
[2025-08-11 07:51] LABS: ALT (SGPT) 40 U/L (0-35); AST (SGOT) 42 U/L (14-36); Albumin 4.1 g/dl (3.5-5.0); Alkaline Phosphatase 120 U/L (38-126); Blood Urea Nitrogen 27 mg/dl (7-17); Calcium 9.6 mg/dl (8.4-10.2); Carbon Dioxide 38 mmol/L (22-30); Chloride 95 mmol/L (98-107); Estimated Creatinine Clearance 54 ml/min; Glucose 67 mg/dl (70-99); Potassium 4.4 mmol/L (3.5-5.1); Sodium 137 mmol/L (135-145); Total Protein 8.2 g/dl (6.3-8.2); eGFR > 60.00
--- NOTE | 2025-08-11 08:18 | PTCARENOTE ---
0426-Patient ABG resulting in critical labs. See Labs. GEOSPATIAL INTELLIGENCE ANALYST notified-CO2 of 75. Bipap order placed.
0520-patient refusing Bipap. Remains on 2L O2. Denies CP, SOB, DAVIS or numbness/tingling. VSS.
PCT unable to obtain oral & axillary temp during vital signs. This RN was notified-rectal temp obtained at 92.1 at 0545. VSS. GEOSPATIAL INTELLIGENCE ANALYST notified, charisse hugger order placed. Patient denies chills, malaise or sob.
Son at bedside throughout, educated alongside pt regarding POC & current interventions. All questions answered, pt & family have no further concerns at this time. Bed in lowest position and locked and call licea within reach. Dayshift RN at bedside
during education.
[2025-08-11] MEDS: PROTONIX 40 MG PO (09:02)
[2025-08-11] MEDS: CARDIZEM CD 120 MG PO (09:03)
[2025-08-11] MEDS: ELIQUIS 2.5 MG PO ×2 (09:03→21:05)
[2025-08-11] MEDS: D5/0.9% SODIUM CHLORIDE 1000 IV ×2 (09:19→22:34)
[2025-08-11 09:34] LABS: Glucose - Point of Care 61 mg/dl (70-99)
[2025-08-11 09:34] LABS: Glucose - Point of Care 80 mg/dl (70-99)
--- NOTE | 2025-08-11 10:08 | W.PN.HOSP.TC ---
Today's Communication/Plan
-
see note
Assessment / Plan
Assessment / Plan
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
Small Bilateral Pleural Effusions - Improved
Restrictive Lung Disease
- Patient does not appear grossly volume overloaded, pleural effusions appear decreased from prior and BNP today is only 172.
- Low lung volumes, poor compliance with IS and poor performance on IS (able to inhale 500ml max)
- Note prior mention of chronic, mild hypercapnia as well.
- Patient required intubation during prior admission and was on BiPAP for a time following that. Continued outpatient use was considered.
- ABG showing pH of 7.34 pCO2 75 -BiPAP trial ordered -patient with history of difficulty remain on BiPAP due to anxiety
- Discussed with pulmonology and will follow-up with follow-up [facility]
Acute toxic metabolic encephalopathy
- Reason unclear. May have component of hypercapnic respiratory failure versus periodic Hypoglycemia
- Not on any sedative medication
- No brain imaging at admission, will defer today due to tenuous pulmonary status.
Shock - unknown type
r/o infection
- Patient reported to having systolic blood pressure in 70s
- Started on empiric Unasyn to cover for pulmonary organism. Will require broadening with addition of vancomycin if start spiking fever.
- Check blood culture x2. COVID/Flu neg. UA clear.
- Patient was started on D5 NS at rate of 75 mL/h. Holding on providing bolus due to tenuous pulmonary status. Will start on low-dose Levophed
R/o Dysphagia
Reported h/o of vocal cord dysfunction
- Patient have audible gurgling during the morning rounds
- Have reported history of dysphagia, repeat speech therapy evaluation ordered
Hypoglycemia
- Patient have low borderline BMI of 15. weight has been stable. Family reported appropriate oral intake
- BG of 67 in morning , paula as patient was NPO for abd US in morning
- Started on D5/NS to support
Hypothermia
- from hypoglycemia likely. check TSHF/FT4
- started on charisse hugger.
Chronic HFpEF
-Family reported worsening lower extremity swelling although not much on exam today
-Got IV Lasix 40 mg in the ER
-Cardiology recommended on holding further diuretics as no signs supporting HF exacerbation.
-Echo done 04/2025 showed normal LVEF and mild - moderate TR. No need to repeat.
Abnormal LFTs
- ? med effect, passive congestion, etc.
- No GI complaints. Abd US deferred , can be checked once clinically stable
Leukopenia / Thrombocytopenia
- New from prior admissions.
- No new medications since last discharge (04/2025).
- Hgb is stable / near usual pre-op baseline.
- Follow for any improvement / further changes in cell counts.
- Consider hematology evaluation if they worsen / persist.
Paroxysmal Atrial Fibrillation
- Stable. In NSR at present.
- Hold dilitazem with new shock/hypotension
Benign Hypertension
- Stable. Continue usual medications.
GERD / Hiatal Hernia
- s/p gastropexy 04/16/25.
- Continue PPI.
RLS
- Stable. Continue ropinirole.
DVT Prophylaxis: On Eliquis
Code Status: Full
Care plan discussed with cardiology/intensive
Family updated bedside
Total critical care time 45 mins . Total critical care time documented does not include time spent on separately billed procedures or the services of residents, students, nurses or physician assistants. I personally saw and examined the patient. I
have reviewed all diagnostic interpretations and treatment plans as written. I was present for the rivera portions of any procedures performed and the inclusive time noted in any critical care statement. Critical care time includes patient management
by me, time spent at the patients bedside, time to review lab and imaging results, discussing patient care, documentation in the medical record, and time spent with the family or caregiver.
Anticipated Discharge: > 48 hours
Subjective/Interval History
-
Date of Service: August 11, 2025
Patient minimally communicative, awake although not speaking much
Able to answer appropriately to questions
audible gurgling sounds when talk
afebrile in night
became hypotensive later in the day
Objective Data
-
Labs:
Laboratory Results
08/11/25 08/11/25
04:26 06:39
WBC 3.3 L
Hgb 11.6 L
Hct 35.3 L
Plt Count 67 L
HCO3 40.5 H*
Sodium 137
Potassium 4.4
Chloride 95 L
Carbon Dioxide 38 H
BUN 27 H
Creatinine 0.7
Glucose 67 L
Calcium 9.6
Total Bilirubin 0.6
AST 42 H
ALT 40 H
Alkaline Phosphatase 120
Vital Signs:
Vital Signs
Temp Pulse Resp BP Pulse Ox
95.8 F L 63 16 126/69 95
08/11/25 09:59 08/11/25 09:03 08/11/25 07:00 08/11/25 09:03 08/11/25 07:00
I&O
08/10/25 08/11/25 08/12/25
06:59 06:59 06:59
Intake Total 240 / 240
Output Total 650 / 650
Balance -410 / -410
Review of Systems
-
Unable to obtain full review of systems at this time due to: Acuity
Physical Exam
-
General: Cachectic
HEENT: Oxygen (Nasal cannula)
Respiratory: Clear to Auscultation
Cardiac: Regular Rhythm and S1/S2; Negative Murmur
GI: Nontender and Normal Bowel Sounds
Musculoskeletal: No Edema
Neuro: Awake, Alert, Oriented and No Motor Deficits
--- NOTE | 2025-08-11 11:20 | CON.PUL ---
Consultation
Consultation Request
Date/Time Consultation Requested: 08/10/2025 - 2245
Date/Time Consultation Performed: 08/11/2025 - 1039
Requesting Provider: Dr. Saldana
Performing Provider: Dr. Carbone
Reason for Consultation: Hypoxia
Medical History
-
Chief Complaint: Low oxygen levels + AMS
History of Present Illness:
79-year-old female with a past medical history of chronic hypercapnic respiratory failure, paroxysmal A-fib on Eliquis, restrictive lung disease, paraesophageal hernia s/p robotic assisted laparoscopic repair with postoperative course complicated by
respiratory failure with volume overload, hypertension, GERD, and hyperlipidemia who presents with low oxygen levels and altered mental status. For about 1 week prior to arrival, the patient has been increasingly more fatigued with daytime
somnolence and reduced activity. She had been using her incentive spirometer but lately had stopped using it. Patient had no prior cough, sore throat, fevers, chills or known sick contact exposure prior to her symptoms starting. Also no reported
new medications or medication dose changes that could have contributed to her symptoms. Her pulse ox was checked at home by the family and was 86% on room air so the brought her to the hospital for further evaluation. Initial vitals showed
her temperature was 97.4 �F, pulse rate 58, respiratory rate 16, BP 142/77 and she was saturating 94% on room air. Initial labs showed leukopenia to 4.2, Hb 11.7, platelet count 74, INR 1.17, blood gas showed chronic hypercapnia with pH 7.42 and
pCO2 58. proBNP 172. Her urinalysis showed no evidence for UTI. Her flu swab was negative and she was COVID-19 antigen negative as well. CXR showed small bilateral pleural effusions and patchy parenchymal opacities in the bases, both slightly
improved from prior CXR in April 2025. No convincing evidence for pulmonary edema. She was given 40 mg IV Lasix and admitted to telemetry for hypoxemia. Shortly after 5:30 AM after patient admitted, her temperature did drop to as low as 92.1 �F.
Blood glucose on morning of 08/11 was low at 61. Patient also reported to have hypotension with SBP in the 70s, and on morning of 08/11 during hospitalist rounds she had audible gurgling that was heard on exam. Patient was started on Unasyn,
started on D5-NS and transferred to IMU for further management with Levophed ordered. Pulmonary service consulted for additional management/recommendations.
When I saw the patient, she was on BiPAP in no acute distress with the patient's , Kaden and patient's daughter, Sallie, both present at bedside. Patient is currently on 12/5 cmH2O bled with 2 L minute. Bedside nurse in the room as well.
The family had wanted the patient to be placed back onto BiPAP although the patient overall does not want to wear the mask. She does not wear BiPAP at home.
Of note, patient follows with us in the [facility] office with last visit on 05/16/[address] Morales. At that visit, her cough symptoms had improved. Her cough was suspected to be due to aspiration in the setting of a known hiatal hernia. Patient was
recommended to follow with speech therapy and no inhalers were recommended at the time. Of note, prior 6MWT in December 2024 showed aureliano SaO2 of 99%, and she was able to walk 300 feet with no need for home O2 at that time. Pt had been hospitalized
from 04/15 - 05/03/2025 for a robotic assisted laparoscopic repair of her type IV paraesophageal hernia with gastropexy (performed 04/15/25). Stay was complicated by postop respiratory failure initially requiring BiPAP which was then switched to AVAPS
and she required reintubation with mechanical ventilation. She also had volume overload requiring thoracentesis. Brief TPN started and then a feeding tube was placed on 04/26/2025 to meet caloric needs. Patient eventually discharged home with home
health and home oxygen.
PMHx: Hypertension, GERD, restless leg syndrome, paraesophageal hernia s/p robotic assisted laparoscopic repair (04/15/2025), chronic hypercapnic respiratory failure, tricuspid valve regurgitation, hyperlipidemia, paroxysmal A-fib on Eliquis,
restrictive lung disease, left thumb CMC joint arthritis, history of anal prolapse
PSHx: Robotic assisted laparoscopic repair of paraesophageal hernia with anterior gastropexy (04/15/2025), esophagogastroduodenoscopy with percutaneous endoscopic gastrostomy tube placement (04/26/2025), right ankle surgery, diagnostic laparotomy with
primary open left inguinal hernia repair and small bowel resection (07/2023), thoracentesis (04/21/2025)
Past Medical History
Past Medical History: Other (Above as per HPI)
Past Surgical History: Other (Above as per HPI)
Social History
Tobacco: Non-smoker
Alcohol: Occasional (Social)
Drug: None
Personal:
Living: With Family
Family History
Family History: Cancer (Father (unknown type); brother: Liver cancer from alcohol use)
Allergies / Home Medications
Allergies
Allergy/AdvReac Type Severity Reaction Status Date / Time
hydrochlorothiazide Allergy Swelling Verified 08/10/25 16:42
paroxetine Allergy passed out Verified 08/10/25 16:42
Home Medications
�Medication �Instructions �Recorded �Confirmed �Last Taken �Type
pravastatin 20 mg tablet 20 mg PO HS High Cholesterol 08/03/23 08/10/25 08/09/25 History
magnesium oxide 250 mg PO DAILY@1200 Electrolyte 11/26/24 08/10/25 08/10/25 History
Repletion
acetaminophen 325 mg tablet 650 mg (2 x 325 mg) PO Q6HPRN PRN 12/02/24 08/10/25 Unknown Rx
mild pain/ fever>100.5F #0 tabs
ropinirole 0.5 mg tablet 0.5 mg PO HSPRN PRN restless leg 04/08/25 08/10/25 04/14/25 12:00 History
syndrome
diltiazem HCl 120 mg 120 mg PO DAILY #30 caps 05/01/25 08/10/25 08/10/25 Rx
capsule,extended release 24 hr
apixaban 2.5 mg tablet (Eliquis) 2.5 mg PO BID 08/10/25 08/10/25 08/10/25 History
docusate sodium 100 mg capsule 100 mg PO DAILYPRN PRN constipation 08/10/25 08/10/25 08/10/25 History
(Colace)
pantoprazole 40 mg tablet,delayed 40 mg PO DAILY Gastrointestinal 08/10/25 08/10/25 08/10/25 History
release Issue
polyethylene glycol 3350 17 gram 17 g PO DAILYPRN PRN constipation 08/10/25 08/10/25 08/10/25 History
oral powder packet (Miralax)
ropinirole 2 mg tablet 2 mg PO DAILY@1200 08/10/25 08/10/25 08/10/25 History
therapeutic multivitamin 1 tab PO DAILY@1200 08/10/25 08/10/25 08/10/25 History
Review of Systems
-
Unable to Obtain full review of systems at this time due to: Acuity
Vitals / Labs / Diagnostic Testing
Vital Signs
Temp Pulse Resp BP Pulse Ox
93.8 F L 63 16 126/69 95
08/11/25 09:00 08/11/25 09:03 08/11/25 07:00 08/11/25 09:03 08/11/25 07:00
Lab Data
08/11/25 06:39
08/11/25 06:39
Laboratory Results
08/10/25 08/11/25
18:17 04:26
PT 15.0 H
INR 1.17
APTT 42.2 H
pH 7.34 L
pCO2 75 H*
pO2 95
HCO3 40.5 H*
O2 Delivery Level
Microbiology
08/10/25 21:19 Nasal Swab Influenza Types A & B (GRAHAM) - Final
Negative for Influenza A & B, NAAT
Negative results must be combined with clinical observations
and patient history.
Nucleic Acid Amplification test (NAAT)performed on the
[employer] platform.
Diagnostic Testing:
Physical Exam
-
HEENT: Normocephalic, Anicteric and Other (Fullface mask via BiPAP on patient with good seal)
Cardiovascular: S1/S2, Peripheral Edema (negative) and Other (Regular rate)
Respiratory: Wheeze (negative), Rales (Bibasilar), Rhonchi (negative), Non-Labored Respirations, Other (Diminished breath sounds bilaterally) and Other (Coarse breath sounds heard bilaterally)
GI: Soft, Non Distended, Non Tender and Normal Bowel Sounds
Neurology: Tremors (negative) and Other (Lethargic although easily arousable to voice but is slow to answer my questions and then falls back asleep)
Skin: Warm and Dry
General: Respiratory Distress (negative), Comfortable, Chills (negative) and Sweats (negative)
Assessment
-
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
complicated by respiratory failure with volume overload, hypertension, GERD, and hyperlipidemia who presents with low oxygen levels and altered mental status. For about 1 week prior to arrival, the patient has been increasingly more fatigued with
daytime somnolence and reduced activity. She had been using her incentive spirometer but lately had stopped using it. Patient had no prior cough, sore throat, fevers, chills or known sick contact exposure prior to her symptoms starting. Also no
reported new medications or medication dose changes that could have contributed to her symptoms. Her pulse ox was checked at home by the family and was 86% on room air so the brought her to the hospital for further evaluation. Initial
vitals showed her temperature was 97.4 �F, pulse rate 58, respiratory rate 16, BP 142/77 and she was saturating 94% on room air. Initial labs showed leukopenia to 4.2, Hb 11.7, platelet count 74, INR 1.17, blood gas showed chronic hypercapnia with
pH 7.42 and pCO2 58. proBNP 172. Her urinalysis showed no evidence for UTI. Her flu swab was negative and she was COVID-19 antigen negative as well. CXR showed small bilateral pleural effusions and patchy parenchymal opacities in the bases, both
slightly improved from prior CXR in April 2025. No convincing evidence for pulmonary edema. She was given 40 mg IV Lasix and admitted to telemetry for hypoxemia. Shortly after 5:30 AM after patient admitted, her temperature did drop to as low as
92.1 �F. Blood glucose on morning of 08/11 was low at 61. Patient also reported to have hypotension with SBP in the 70s, and on morning of 08/11 during hospitalist rounds she had audible gurgling that was heard on exam. Patient was started on
Unasyn, started on D5-NS and transferred to IMU for further management with Levophed ordered. Pulmonary service consulted for additional management/recommendations.
Chronic conditions [facility]: Hypertension, GERD, restless leg syndrome, paraesophageal hernia s/p robotic assisted laparoscopic repair (04/15/2025), chronic hypercapnic respiratory failure, tricuspid valve regurgitation, hyperlipidemia, paroxysmal A-fib on
Eliquis, restrictive lung disease, left thumb CMC joint arthritis, history of anal prolapse
Impression:
#Acute hypoxic respiratory failure
#Acute on chronic chronic hypercapnic respiratory failure
#Circulatory shock requiring vasopressors
#Hypoglycemia
#Hypothermia
#Pancytopenia (had similar values in November 2024)
#Transaminitis
#Moderate restrictive lung defect with T%, VC: 77% and DLCO: 43%, albeit DLco/VA: 68% via PFTs from 02/19/2025
#Moderate tricuspid regurgitation
#Small PFO (seen on echo from April 2025)
#Chronic HFpEF
#Paroxysmal A-fib on Eliquis
#Hx of paraesophageal hernia s/p robotic assisted laparoscopic repair (04/15/2025) with post op course complicated by acute respiratory failure and volume overload
#Restless leg syndrome
Plan:
- Patient has been lethargic this past week and hypoxic
- Found to be hypoglycemic and hypothermic - -> need to eval for hypothyroidism/myxedema coma as a cause of her symptoms
- TSH and free T4 are pending; recommend to also check random cortisol level
- Continue with dextrose infusion and slowly wean off as her sugars improve
- Frequent FS checks to assure patient not hypoglycemic; need to absolutely keep BG >54, but ideally want to maintain BG >100 and <180, administering additional amps of dextrose if needed
- Last HbA1c: 5.6 on 11/27/2024
- Consider endocrinology consult (depending on TFT results)
- Patient is currently on BiPAP but when she awakens she becomes restless and wants the BiPAP mask to be removed, and then falls asleep again
- She is fully compensated as her blood gas this afternoon (08/11), so I am okay with her coming off BiPAP if she is to stay awake, however if she remains somnolent then keep on BiPAP for now
- Serial blood gases to trend pCO2 + pH
- If patient becomes unresponsive, then she will need to be intubated for airway protection
- Consider [employer] imaging via CT head vs MRI brain with neuro consult; no current signs of seizures, but could also check EEG to eval for NCSE if her AMS worsens
- Patient currently on a low-dose of Levophed; titrate to maintain MAP >65
- Check random cortisol
- Patient recently had an echo in April 2025 which showed preserved biventricular size and function with moderately elevated PASP at 44 mmHg with mild�moderate TR and a possible small PFO
- Consider repeat echo if pressor requirements worsen
- Continue supplemental oxygen, titrating flow rate to maintain SpO2 >90-94%
- prn nebulized bronchodilators - patient not currently bronchospastic
- Aspiration precautions; C[employer] REGISTER REPAIRER saw patient and recommended soft bite-size solids with thin liquids
- CXR was personally reviewed by me as well as her prior imaging; current CXR from 08/10 shows bibasilar opacities with hypoventilation & atelectasis with small pleural effusions
- If patient's hypoxia worsens then would recommend obtaining a CT chest, and if patient is to unstable to transfer off the floor then would at the very least check a bilateral chest ultrasound
- Although patient denies a significant cough and has been afebrile and is currently nontoxic-appearing, given her AMS with hypotension/shock state, agree with empiric antibiotics (Unasyn)
- If patient continues to clinically deteriorate then would broaden antibiotics further
- Follow-up blood cultures x 2 (collected 08/11/2025); UA is clear
- Replete electrolytes with K>4, Mg>2
- Trend H/H and transfuse if needed to keep Hb >7-8g/dL; keep plt>10-20k, unless there is concern for bleeding then keep plt>50k
- Once she awakens more consistently, then would encourage use of incentive spirometer 10x per hour for at least 4 hours a day
- DVT ppx - Eliquis; may need to use parenteral route if patient unable to take PO meds due to AMS or being on BiPAP
Patient will need to follow us again after hospital discharge - last visit was on 05/16/[address] Morales.
Pulmonary service will continue to follow along in IMU. Low threshold to transfer to higher level of care (ICU)
Critical care statement: A total of 37 minutes of critical care time was provided for this patient today. This includes management of unstable vital signs, evaluation of the patient at bedside, reviewing the patient�s pertinent medical records
including radiographs, microbiology, laboratory evaluations, and��discussion with primary team, consultants, pharmacy, nutrition, physical therapy, case management, charge nurse, critical care nursing, and respiratory therapy.
Data:
CXR 08/10/2025:
Small bilateral pleural effusions, improved since radiograph of April 29, 2025.
Patchy parenchymal opacity within both lower lungs, right greater than left, slightly improved from most recent radiograph, suggesting improvement in atelectasis.
Cardiomegaly. No convincing evidence for pulmonary edema pattern.
Outpatient [facility] data:
PFT 02/19/2025:
Postbronchodilator FEV1 1.16 L, 73% of predicted.� FVC 1.57 L, 73% of predicted.� FEV1/FVC 74.
� Lung volumes.� Total lung capacity reduced at 2.91 L, 67% of predicted.
� Diffusion capacity.� Reduced at 7.44, 43% of predicted, when adjusted for alveolar volume to 68% of predicted.
� Conclusion:��Moderate restrictive disease with reduced total lung capacity and reduced diffusion capacity.� No evidence of obstructive airway disease.
6MWT:
12/19/24: At rest, O2 100% on room air, heart rate 81. With ambulation, O2 aureliano 99%, max heart rate 134. 1/10 on dyspnea scale. Ambulated 300 feet.
Labs: �
12/09/2024: Hemoglobin 12, absolute eosinophils 100, carbon dioxide 33, BUN 18, creatinine 0.6
11/30/2024: D-dimer 2.78, ABG pH 7.45, pCO2 46, pO2 73, HCO3 32, O2 sat 96.8
11/29/2024: Ferritin 154
[2025-08-11] MEDS: REQUIP 2 MG PO (11:29)
[2025-08-11] MEDS: MAGNESIUM OXIDE 400 MG PO (11:29)
--- NOTE | 2025-08-11 11:48 | PTCARENOTE ---
Patient transferred from [address] [place] [address] to room 3350. Patient settled in IMU bed and assessment as documented. Rocio hugger placed back on patient, rectal temperature as documented, see flowsheet. Pt is aaox3. She states 'I want to go home, I did not think
I would be here.' Pt's family reporting they want patient to go on BiPAP. I informed family that it was reported patient would not tolerate it. Pt's expressing he will 'talk to her' and then later came out to nurses station to advised she is
agreeable. RT notified and came and placed BiPAP. RT noted patient was tearful about the mask but was agreeable. Pt sitting at bedside providing emotional support for patient to tolerate mask. VS and care as documented.
[2025-08-11 11:57] LABS: Glucose - Point of Care 98 mg/dl (70-99)
[2025-08-11] MEDS: LEVOPHED 250 IV (12:29)
[2025-08-11] MEDS: NSS 250 IV (12:36)
--- NOTE | 2025-08-11 12:45 | PTCARENOTE ---
Pt still hypothermic despite charisse hugger, temps in 95s, see flowsheet. Pt now hypotensive, systolic in 70s. Cardiology at bedside at that time, ordered 250 ml bolus, see NOV. TT to to make aware of temp and BP. Orders for blood cultures,
Levophed, antibiotics. at bedside and updated on plan of care.
[2025-08-11 12:58] LABS: Venous Blood Gas B.E. 14.1 mmol/L (-4 to +4); Venous Blood Gas O2 Sat % 97.9 %
--- NOTE | 2025-08-11 13:03 | CON.CAR ---
Consultation
Consultation Request
Date/Time Consultation Requested: August 11, 2025 9:30 AM
Date/Time Consultation Performed: August 11, 2025 12:30 PM
Requesting Provider: Hospitalist
Performing Provider: Kee Espinosa
Reason for Consultation: Heart failure?
Medical History
-
Chief Complaint: Fatigue hypoxemia confusion
History of Present Illness:
79-year-old female with past medical history of hypertension, paroxysmal A-fib, recent paraesophageal hernia repair, heart failure preserved ejection fraction who initially presented for worsening fatigue and hypoxemia. History is obtained from
bedside as she is on BiPAP currently. They have noticed over the last several weeks just an ongoing continual decline. This has been an insidious process. She has had some intermittent confusion as well. He did have some lower extremity swelling
and had been taking some intermittent Lasix.
Upon my interview patient was hypoxic to the low 90s and hypotensive. Unable to really participate in interview. Her family was at bedside who provided interval detail. I discussed my concern with primary hospitalist about possible sepsis.
Overall, she does not appear to have significant volume overload.
Past Medical History
Past Medical History: HTN, Hypercholesterolemia, Valvular Disease and Other (as above)
Past Surgical History: Other (Robotic assisted paraesophageal hernia repair gastropexy, PEG placement, inguinal hernia repair, right ankle surgery)
Social History
Tobacco: Non-Smoker
Alcohol: None
Drug: None
Personal:
Living: With Family
Family History
Family History: Reviewed & Not Pertinent
Allergies / Home Medications
Allergy/AdvReac Type Severity Reaction Status Date / Time
hydrochlorothiazide Allergy Swelling Verified 08/10/25 16:42
paroxetine Allergy passed out Verified 08/10/25 16:42
�Medication �Instructions �Recorded �Confirmed �Type
pravastatin 20 mg tablet 20 mg PO HS High Cholesterol 08/03/23 08/10/25 History
magnesium oxide 250 mg PO DAILY@1200 Electrolyte 11/26/24 08/10/25 History
Repletion
acetaminophen 325 mg tablet 650 mg (2 x 325 mg) PO Q6HPRN PRN 12/02/24 08/10/25 Rx
mild pain/ fever>100.5F #0 tabs
ropinirole 0.5 mg tablet 0.5 mg PO HSPRN PRN restless leg 04/08/25 08/10/25 History
syndrome
diltiazem HCl 120 mg 120 mg PO DAILY #30 caps 05/01/25 08/10/25 Rx
capsule,extended release 24 hr
apixaban 2.5 mg tablet (Eliquis) 2.5 mg PO BID 08/10/25 08/10/25 History
docusate sodium 100 mg capsule 100 mg PO DAILYPRN PRN constipation 08/10/25 08/10/25 History
(Colace)
pantoprazole 40 mg tablet,delayed 40 mg PO DAILY Gastrointestinal 08/10/25 08/10/25 History
release Issue
polyethylene glycol 3350 17 gram 17 g PO DAILYPRN PRN constipation 08/10/25 08/10/25 History
oral powder packet (Miralax)
ropinirole 2 mg tablet 2 mg PO DAILY@119908/10/25 08/10/25 History
therapeutic multivitamin 1 tab PO DAILY@119908/10/25 08/10/25 History
Review of Systems
-
All other systems: Negative unless noted
Physical Exam
Vital Signs
Temp Pulse Resp BP Pulse Ox
95.4 F L 63 16 126/69 92
08/11/25 12:17 08/11/25 09:03 08/11/25 07:00 08/11/25 09:03 08/11/25 11:54
Lab Results
08/11/25 06:39
08/11/25 06:39
Ytb-T-Nubnjtpckaz Pept 172 pg/ml 08/10/25 18:17
Physical Exam
General: Well Developed, Well Nourished and Respiratory Distress
HEENT: Normocephalic
Respiratory: Other (Poor breath sounds bilaterally)
Cardiac: S1/S2
GI: Soft
Musculoskeletal: No Edema
Skin: Warm and Dry
Neuro: Awake, Alert and Oriented
Psych: Confused (Mildly)
Impression / Plan
-
A/P: 79-year-old female with history of HFpEF, valvular heart disease, paroxysmal A-fib, hypercapnic respiratory failure, restrictive lung disease, who is here with fatigue and hypoxemia.
Hypothermia, hypotension, leukopenia, confusion concerning for possible sepsis
- Discussed with primary we will start antibiotics and pressor support
- Per primary
- New pancytopenia
Acute on chronic HFpEF
- Does not appear to be volume overloaded and in setting of hypotension hold diuretics
- Can evaluate for SGLT2 inhibitor once improved
- Normal proBNP
Paroxysmal AF
- In sinus rhythm
- Continue Eliquis
Pancytopenia
- Per primary
Hypercapnic hypoxic respiratory failure
- Per primary
Hypertension
- Hold in setting of hypotension
Data Reviewed
-
EKG: Tracing Personally Visualized and interpreted (sr)
Medical Tests (Nuc Med, Echo etc): Report Reviewed by me
Labs: Labs Reviewed by me
[2025-08-11] MEDS: UNASYN IV ×2 (14:08→21:05)
[2025-08-11 14:18] LABS: Urine Character Clear (Clear)
[2025-08-11 15:55] LABS: Prealbumin (Transthyretin) 19.8 mg/dl (17.6-36.0)
--- NOTE | 2025-08-11 16:02 | PTOTSP ---
ST Acute Care Evaluation
Pt currently presents with clinical signs of mild to moderate oral dysphagia characterized by prolonged mastication and bolus formation with advanced solids, reduced bolus formation resulting in oral residue that clears with liquid washes, and
prolonged bolus manipulation and propulsion posteriorly. No overt s/s of penetration or aspiration noted at bedside; however, pt easily fatigued with the act of PO intake, mastication, and multiple sequential PO trials which subsequently increases
risk for aspiration. No esophageal s/s observed or reported at bedside; however, pt with hx of GERD.
Recommendations:
- Soft bite sized solids, thin liquids, meds whole in puree.
- Aspiration precautions: 1:1 assist with PO intake; HOB upright for all PO intake; only feed when fully awake/alert; small bites/sips; feed slowly; alternate bites/sips; check for oral clearance; d/c PO intake if pt's mentation or respiratory
status declines.
- Reflux precautions: HOB upright for at least 60 minutes after PO intake; avoid reflux-triggering foods/drinks; don't over-eat.
- [employer] UTILITY WORKER to f/u re: diet tolerance, use of compensatory strategies, re-assessment for further diet upgrades, and to determine if pt would benefit from an instrumental swallow study.
- RO[employer] UTILITY WORKER to f/u re: monitor cognitive status and assess further if indicated.
[2025-08-11 16:23] LABS: TSH 6.09 uIU/ml (0.47-4.68)
--- NOTE | 2025-08-11 17:18 | PTCARENOTE ---
Family asking for thyroid lab test results. TT to , who advised to tell them they were 'close to normal.'
[2025-08-11 17:36] LABS: Glucose - Point of Care 121 mg/dl (70-99)
[2025-08-11 18:11] LABS: Cortisol, Random 16.2 ug/dl
[2025-08-11] MEDS: PRAVACHOL 20 MG PO (21:09)
[2025-08-11] MEDS: ATIVAN 0.25 MG PO (21:54)
--- NOTE | 2025-08-11 22:17 | PTCARENOTE ---
Pt able to make needs known. Pt expressing to this RN while Son at bed side that she is 'scared' Saying she does not 'want to wear the mask'. Pt saying ' all of this, I would rather '. Pt also telling her Son she does not want to eat but all her
does is 'make me eat more and more and more......'. Pt becoming tearful continuing to say she does not want to wear the mask. Emotional support given. Pt requessting something to help her sleep or with feeling so 'scared'. Night STRIPE MARKER made
aware of Pt anxiety. One time order placed for 0.25mg Ativan. Son and Pt agreeable to plan of Pt getting medication and when she falls a sleep we will go in to attempted to place bipap mask.
--- NOTE | 2025-08-11 22:58 | PTCARENOTE ---
Pt restarted on LEVO 1mcg/min to keep sys >90, NEONATAL INTENSIVE CARE UNIT NURSE aware.
[2025-08-12] VITALS (56 sets, daily range): BP systolic 81–138; BP diastolic 44–77; PULSE 2–78; BMI 19.8
[2025-08-12 00:30] LABS: Glucose - Point of Care 105 mg/dl (70-99)
[2025-08-12] MEDS: UNASYN IV ×4 (02:10→20:55)
[2025-08-12 06:00] LABS: Hematocrit 31.9 % (37.0-47.0); Hemoglobin 10.3 g/dL (12.0-16.0); Mean Corp Hgb Conc. 32.3 g/dL (33.0-37.0); Mean Corpuscular Volume 93.8 fL (81.0-99.0); Platelet Count 69 10^3/uL (130-400); Red Cell Dist. Width 16.7 % (11.5-14.5)
[2025-08-12 06:04] LABS: ALT (SGPT) 29 U/L (0-35); AST (SGOT) 30 U/L (14-36); Albumin 3.5 g/dl (3.5-5.0); Alkaline Phosphatase 93 U/L (38-126); Blood Urea Nitrogen 21 mg/dl (7-17); Calcium 8.8 mg/dl (8.4-10.2); Chloride 98 mmol/L (98-107); Estimated Creatinine Clearance 43 ml/min; Glucose 99 mg/dl (70-99); Potassium 4.5 mmol/L (3.5-5.1); Sodium 137 mmol/L (135-145); Total Protein 7.2 g/dl (6.3-8.2); eGFR > 60.00
--- NOTE | 2025-08-12 06:10 | PTCARENOTE ---
Pt appearing to tolerate BiPAP over night, respirations even un labored. Pt requesting BiPAP come off around 0500 this morning. Pt now on 2L NC spo2 99% respirations even unlabored. Pt appearing to be in an upbeat and happy mood. Pt smiling and
saying thank you for helping her sleep. Call licea within reach. Bed in lowest position.
[2025-08-12 06:23] LABS: Glucose - Point of Care 93 mg/dl (70-99)
[2025-08-12 07:29] LABS: Carbon Dioxide 35 mmol/L (22-30)
[2025-08-12] MEDS: ELIQUIS 2.5 MG PO ×2 (08:37→20:55)
[2025-08-12] MEDS: PROTONIX 40 MG PO (08:37)
[2025-08-12] MEDS: FLUSH (NSS) 2 FLUSH IV (08:40)
--- NOTE | 2025-08-12 08:51 | W.PN.CD ---
Today's Communication / Plan
-
examines euvolemic, hold diuresis
TTE pending
Impression / Plan
-
A/P: 79-year-old female with history of HFpEF, valvular heart disease, paroxysmal A-fib, hypercapnic respiratory failure, restrictive lung disease, who is here with fatigue and hypoxemia.
Hypothermia, hypotension, leukopenia, confusion concerning for possible sepsis; improving
- cont. abx per primary for possible pneumonia
- thyroid function tests with elevated TSH, normal T4
Acute on chronic HFpEF
- Does not appear to be volume overloaded and in setting of hypotension hold diuretics
- Normal proBNP
- CXR with interval improvement in basilar atelectasis and pleural effusion, no e/o pulm edema
- TTE pending today
- Can evaluate for SGLT2 inhibitor prior to discharge vs. outpatient setting
Paroxysmal AF
- In sinus rhythm on tele
- Continue Eliquis (half dose given age and weight)
- dilt for rate control
Pancytopenia
- Per primary
Hypercapnic hypoxic respiratory failure
- Per primary
Hypertension
- Hold in setting of hypotension
Physical Exam
Vital Signs/Labs
Vital Signs
Temp Pulse Resp BP Pulse Ox
37.0 C 64 12 113/59 98
08/12/25 04:00 08/12/25 08:00 08/12/25 08:00 08/12/25 08:00 08/12/25 08:00
08/11/25 08/12/25 08/13/25
06:59 06:59 06:59
Actual Weight 54.459 kg 55.6 kg
08/12/25 05:06
08/12/25 05:06
PT 15.0 Sec (11.4-14.6) H 08/10/25 18:17
INR 1.17 08/10/25 18:17
APTT 42.2 Sec (23.4-35.0) H 08/10/25 18:17
TSH 6.09 uIU/ml (0.47-4.68) H 08/11/25 06:39
Free T4 1.53 ng/dl (0.78-2.19) 08/11/25 06:39
08/10/25
18:17
Sdw-R-Sbatjblghkh Pept 172
Physical Exam
Constitutional: Comfortable
Cardiovascular: Rhythm & rate is regular and Systolic murmur present
Respiratory: Other (decreased at bases)
Data Reviewed
-
Date of Service: August 12, 2025
Medical Decision Making: Reviewed Test Results
EKG: Tracing Personally Visualized and interpreted
Labs: Labs Reviewed by me
--- NOTE | 2025-08-12 09:08 | VNURNOTE ---
Chart reviewed. Patient is current with [facility]. Will continue to follow hospital course and DC plans.
--- NOTE | 2025-08-12 09:37 | W.PN.HOSP.TC ---
Today's Communication/Plan
-
See Plan
Assessment / Plan
Assessment / Plan
Physical Exam
General: Cachectic
HEENT: Oxygen (Nasal cannula)
Respiratory: Decreased breath sounds bilaterally.
Cardiac: Regular Rhythm and S1/S2; Negative Murmur
GI: Nontender and Normal Bowel Sounds
Musculoskeletal: No Edema
Neuro: Awake, Alert, Oriented and No Motor Deficits
Assessment/Plan
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
Small Bilateral Pleural Effusions - Improved
Restrictive Lung Disease
- Patient does not appear grossly volume overloaded, pleural effusions appear decreased from prior and BNP was only 172.
- Low lung volumes, poor compliance with IS and had poor performance on IS (able to inhale 500ml max)
- Note prior mention of chronic, mild hypercapnia as well.
- Patient required intubation during a prior admission and was on BiPAP for a time following that. Continued outpatient use was considered but felt not needed.
- ABG showed pH of 7.34 pCO2 75 -BiPAP trial was ordered -patient with history of difficulty remain on BiPAP due to anxiety
- Patient wore BiPAP last night, for a few hours - continue BiPAP while sleeping and nocturnal BiPAP -- family had pushed patient to be continued on BiPAP
- Hypercapnia does not explain patient's mental status
- Discussed with pulmonology and will follow-up with follow-up [facility]
- Postoperatively (following hernia surgery in April 2025), patient has low lung volumes. Possible right hemidiaphragm elevation. Cannot rule out possible diaphragm dysfunction explaining hypercapnia.
- Check CT of the chest to evaluate further the above
- Dr. Morales is patient's outpatient director records management
- If patient becomes unresponsive, then she will need to be intubated for airway protection.
Acute toxic metabolic encephalopathy
- Reason unclear. May have component of hypercapnic respiratory failure versus periodic Hypoglycemia -- but hypercapnia does not explain patient's mental status
- Not on any sedative medication
- No brain imaging at admission, will consider ordering if mental status still does not improve
Shock - unknown type
r/o infection
- Patient reported to having systolic blood pressure in 70s
- Started on 08/11/25 empiric Unasyn to cover for pulmonary organism with possible aspiration. Will require broadening with addition of vancomycin if start spiking fever.
- Continue Unasyn
- Follow blood culture x2. COVID/Flu neg. UA clear.
- Patient was started on D5 NS at rate of 75 mL/h. Holding on providing bolus due to tenuous pulmonary status.
- Levophed started 08/11/25, but weaned off as of 08/12/25 morning
R/o Dysphagia
Reported h/o of vocal cord dysfunction
- Patient have audible gurgling during the morning rounds
- Have reported history of dysphagia, repeat speech therapy evaluation ordered
Hypoglycemia
- Patient have low borderline BMI of 15. weight has been stable. Family reported appropriate oral intake
- BG of 67 in morning , but patient was also previously NPO for abd US in morning
- Started on D5/NS to support
Hypothermia
- from hypoglycemia likely. TSH mildy elevated but less than 10, Free T4 normal, cortisol normal
- started on charisse hugger.
Thrombocytopenia with some bleeding while on Eliquis
- Thrombocytopenia is new and significant
- Appreciate hematology: okay to continue Eliquis for now with platelets >50,000 in the absence of significant bleeding
- Follow microbiology studies; check Vitamin B12, folate and check DIC panel
Chronic HFpEF
-Family reported worsening lower extremity swelling although not much on exam today
-Got IV Lasix 40 mg in the ER. No need for further diuresis.
-Cardiology recommended on holding further diuretics as no signs supporting HF exacerbation.
-Echo done 04/2025 showed normal LVEF and mild - moderate TR. No need to repeat.
-TTE echo from 08/12/25 with no new changes compared to previous one in April 2025
-Can evaluate for SGLT2 inhibitor prior to discharge vs. outpatient setting
-Follow-up with [facility] outpatient
Abnormal LFTs
- ? med effect, passive congestion, etc.
- No GI complaints. Abd US deferred , can be checked once clinically stable
Leukopenia / Thrombocytopenia
- New from prior admissions.
- No new medications since last discharge (04/2025).
- Hgb is stable / near usual pre-op baseline.
- Follow for any improvement / further changes in cell counts.
- Hematology evaluation
Paroxysmal Atrial Fibrillation
- Stable.
- Continue half-dose Eliquis 2.5 mg BID
- Holding Diltiazem given recent hypotension 08/11-08/12
History of Pleural Effusion
- Thought to be from surgery
- Right sided drained
Benign Hypertension
- Stable. Continue usual medications.
GERD / Hiatal Hernia
- s/p gastropexy 04/16/25 (here at [facility])
- Continue PPI.
RLS
- Stable. Continue ropinirole.
DVT Prophylaxis: On Eliquis
Code Status: Full
Care plan discussed with cardiology/pulmonary
Family updated bedside
Total Critical Care Time 60 minutes. I was immediately available to the patient and staff. I personally examined, reviewed labs, diagnostic images/reports, interpretations, treatment plans, discussed patient care with other
providers/director records management and family, entered orders as appropriate and documented the medical record.
Anticipated Discharge: > 48 hours
Subjective/Interval History
-
Date of Service: August 12, 2025
Patient was seen and examined. She was doing better today, but still not back to her full mental status as per her family.
Objective Data
-
Labs:
Laboratory Results
08/12/25
05:06
WBC 5.2
Hgb 10.3 L
Hct 31.9 L
Plt Count 69 L
Sodium 137
Potassium 4.5
Chloride 98
Carbon Dioxide 35 H
BUN 21 H
Creatinine 0.9
Glucose 99
Calcium 8.8
Total Bilirubin 0.4
AST 30
ALT 29
Alkaline Phosphatase 93
Vital Signs:
Vital Signs
Temp Pulse Resp BP Pulse Ox
98.6 F 64 12 113/59 98
08/12/25 04:00 08/12/25 08:00 08/12/25 08:00 08/12/25 08:00 08/12/25 08:00
I&O
08/11/25 08/12/25 08/13/25
06:59 06:59 06:59
Intake Total 240 / 240 1135 / 1135
Output Total 650 / 650 775 / 775
Balance -410 / -410 360 / 360
--- NOTE | 2025-08-12 10:34 | W.PN.PUL3 ---
Today's Communication / Plan
-
Avoid sedatives
Mental status has improved
Levophed discontinued
Continue BiPAP as needed and at bedtime
Will obtain ABG closer to discharge as platelets improved. She is having bleeding from puncture site
Continue antibiotics to cover for possible aspiration pneumonia/pneumonitis
Obtain CT chest to evaluate lung parenchyma mediastinum better-cannot rule out diaphragm dysfunction/paralysis to explain her new hypercapnia.
Will continue to follow
Assessment
-
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
complicated by respiratory failure with volume overload, hypertension, GERD, and hyperlipidemia who presents with low oxygen levels and altered mental status. For about 1 week prior to arrival, the patient has been increasingly more fatigued with
daytime somnolence and reduced activity. She had been using her incentive spirometer but lately had stopped using it. Patient had no prior cough, sore throat, fevers, chills or known sick contact exposure prior to her symptoms starting. Also no
reported new medications or medication dose changes that could have contributed to her symptoms. Her pulse ox was checked at home by the family and was 86% on room air so the brought her to the hospital for further evaluation. Initial
vitals showed her temperature was 97.4 �F, pulse rate 58, respiratory rate 16, BP 142/77 and she was saturating 94% on room air. Initial labs showed leukopenia to 4.2, Hb 11.7, platelet count 74, INR 1.17, blood gas showed chronic hypercapnia with
pH 7.42 and pCO2 58. proBNP 172. Her urinalysis showed no evidence for UTI. Her flu swab was negative and she was COVID-19 antigen negative as well. CXR showed small bilateral pleural effusions and patchy parenchymal opacities in the bases, both
slightly improved from prior CXR in April 2025. No convincing evidence for pulmonary edema. She was given 40 mg IV Lasix and admitted to telemetry for hypoxemia. Shortly after 5:30 AM after patient admitted, her temperature did drop to as low as
92.1 �F. Blood glucose on morning of 08/11 was low at 61. Patient also reported to have hypotension with SBP in the 70s, and on morning of 08/11 during hospitalist rounds she had audible gurgling that was heard on exam. Patient was started on
Unasyn, started on D5-NS and transferred to IMU for further management with Levophed ordered. Pulmonary service consulted for additional management/recommendations.
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
Eliquis, restrictive lung disease, left thumb CMC joint arthritis, history of anal prolapse
Impression:
#Acute hypoxic respiratory failure
#Acute on chronic chronic hypercapnic respiratory failure
#Circulatory shock requiring vasopressors
#Hypoglycemia
#Hypothermia
#Pancytopenia (had similar values in November 2024)
#Transaminitis
#Moderate restrictive lung defect with T%, VC: 77% and DLCO: 43%, albeit DLco/VA: 68% via PFTs from 02/19/2025
#Moderate tricuspid regurgitation
#Small PFO (seen on echo from April 2025)
#Chronic HFpEF
#Paroxysmal A-fib on Eliquis
#Hx of paraesophageal hernia s/p robotic assisted laparoscopic repair (04/15/2025) with post op course complicated by acute respiratory failure and volume overload
#Restless leg syndrome
Plan:
- Patient has been lethargic this past week and hypoxic
- Found to be hypoglycemic and hypothermic/pancytopenic - -> Unclear etiology- possible toxic metabolic encephalopathy? sepsis
- TSH , free t4 and cortisol normal.
- Hypoglycemia improved- defer management to primary team.
- Frequent FS checks to assure patient not hypoglycemic; need to absolutely keep BG >54, but ideally want to maintain BG >100 and <180, administering additional amps of dextrose if needed
- Last HbA1c: 5.6 on 11/27/2024
- Consider brain imaging if mental status does not improve. Defer to primary team.
- Clinically improved.
-
Hypotension/shock: Levophed was weaned off as of 08/12/2025.
Status post IV fluid resuscitation
Normal renal function.
Normal random cortisol.
Acute/? chronic hypercapnic respiratory failure: Compensated most recent VBG. 08/11/2025--hypercapnia does not explain patient's mental status.
- ABG 08/11/2025 7.35/75/95.
- Mental status has improved.
-May use BiPAP as needed and possibly at bedtime.
- Continue to monitor mental status closely/aspiration precautions.
- Mental status improved-patient is having some bleeding from puncture sites due to thrombocytopenia and ongoing anticoagulation. Will limit VBG/ABGs, will perform closer to discharge or if clinically needed depending on mental status.
- Avoid sedatives-consider limitation of Ropinirole.
- If patient becomes unresponsive, then she will need to be intubated for airway protection.
- New ? Acute hypoxemic respiratory failure: Continue supplemental oxygen, titrating flow rate to maintain SpO2 >90-94%(hypercapnia not present in April 2025)
- Suspected aspiration pneumonitis/pneumonia-hypoventilatory changes
- Aspiration precautions; [employer] saw patient and recommended soft bite-size solids with thin liquids
- Current CXR from 08/10 shows bibasilar opacities with hypoventilation & atelectasis with small pleural effusions--bibasilar infiltrates cannot rule out pneumonia/aspiration pneumonitis.
-I agree with Unasyn for now.
-Will obtain a sputum culture if able. Influenza negative. COVID-negative.
- If patient's hypoxia worsens then would recommend obtaining a CT chest.
- Although patient denies a significant cough and has been afebrile and is currently nontoxic-appearing, given her AMS with hypotension/shock state, agree with empiric antibiotics (Unasyn)
- If patient continues to clinically deteriorate then would broaden antibiotics further
- Follow-up blood cultures x 2 (collected 08/11/2025); UA is clear
Interestingly postoperatively patient has low lung volumes. Possible right hemidiaphragm elevation.
Cannot rule out possible diaphragm dysfunction explaining hypercapnia.
Will obtain CT of the chest to evaluate further.
For now continue with nocturnal BiPAP as above.
-
Pancytopenia: Improved. Unclear etiology.
Normal renal function
Normal coagulation profile.
Hematology to be consulted.
Atrial fibrillation/heart failure with preserved ejection fraction-appears euvolemic.
Echocardiogram 04/2025: Normal LVEF. Normal right ventricular size and function. Mild to moderate TR.
Normal proBNP.
Cardiology following
Anticoagulation ongoing
- Once she awakens more consistently, then would encourage use of incentive spirometer 10x per hour for at least 4 hours a day
-
- DVT ppx - Eliquis.
Patient will need to follow us again after hospital discharge - last visit was on 05/16/[address] Travis updated family in detail 08/12/2025 at the bedside.
Critical care statement: A total of 40 minutes of critical care time was provided for this patient today. This includes management of unstable vital signs, evaluation of the patient at bedside, reviewing the patient�s pertinent medical records
including radiographs, microbiology, laboratory evaluations, and��discussion with primary team, consultants, pharmacy, nutrition, physical therapy, case management, charge nurse, critical care nursing, and respiratory therapy.
Data:
CXR 08/10/2025:
Small bilateral pleural effusions, improved since radiograph of April 29, 2025.
Patchy parenchymal opacity within both lower lungs, right greater than left, slightly improved from most recent radiograph, suggesting improvement in atelectasis.
Cardiomegaly. No convincing evidence for pulmonary edema pattern.
Outpatient [facility] data:
PFT 02/19/2025:
Postbronchodilator FEV1 1.16 L, 73% of predicted.� FVC 1.57 L, 73% of predicted.� FEV1/FVC 74.
� Lung volumes.� Total lung capacity reduced at 2.91 L, 67% of predicted.
� Diffusion capacity.� Reduced at 7.44, 43% of predicted, when adjusted for alveolar volume to 68% of predicted.
� Conclusion:��Moderate restrictive disease with reduced total lung capacity and reduced diffusion capacity.� No evidence of obstructive airway disease.
6MWT:
12/19/24: At rest, O2 100% on room air, heart rate 81. With ambulation, O2 aureliano 99%, max heart rate 134. 1/10 on dyspnea scale. Ambulated 300 feet.
Labs: �
12/09/2024: Hemoglobin 12, absolute eosinophils 100, carbon dioxide 33, BUN 18, creatinine 0.6
11/30/2024: D-dimer 2.78, ABG pH 7.45, pCO2 46, pO2 73, HCO3 32, O2 sat 96.8
11/29/2024: Ferritin 154
Subjective Data
-
Date of Service:
Date of Service: August 12, 2025
Chief Complaint: Pulmonary Follow Up (Chronic hypercapnic respiratory failure)
Review of Systems
General: Fever (n)
Cardiopulmonary: Dyspnea (none at rest)
GI: Abdominal Pain (n) and Nausea
Objective Data
Data Reviewed
Vital Signs / I&O / Oxygen:
Vital Signs
Temp Pulse Resp BP Pulse Ox
98.6 F 64 12 113/59 98
08/12/25 04:00 08/12/25 08:00 08/12/25 08:00 08/12/25 08:00 08/12/25 08:00
Intake and Output
08/11/25 08/12/25 08/13/25
06:59 06:59 06:59
Intake Total 240 / 240 1135 / 1135 520 / 520
Output Total 650 / 650 775 / 775
Balance -410 / -410 360 / 360 520 / 520
SaO2 98
Nasal Cannula flow liters per 2
minute
Physical Exam
General: Comfortable
HEENT: Normocephalic
Cardiovascular: S1-S2
Respiratory: Non-Labored Respirations and Other ( diminished breath sounds bilaterally. Bronchial breath sounds bilaterally on bases.)
GI: Soft and Non Distended
Neurology: Awake, Alert, No Motor Deficits and Other (Following commands)
Skin: Warm
Labs/Micro/Reports
Lab Data
08/12/25 05:06
08/12/25 05:06
Microbiology
08/10/25 21:19 Nasal Swab Influenza Types A & B (GRAHAM) - Final
Negative for Influenza A & B, NAAT
Negative results must be combined with clinical observations
and patient history.
Nucleic Acid Amplification test (NAAT)performed on the
[employer] NOW platform.
--- NOTE | 2025-08-12 10:46 | VATNOTE ---
Old right AC site with uncontrolled bleeding since IV removed. Despite direct pressure and QuickClot gauze, bleeding continued. Direct pressure held to site for ~five minutes, surgifoam placed at site, and pressure again held for an additional ~two
minutes. Tang wrap applied to site. No active bleeding noted. Primary RN updated. Will follow up.
--- NOTE | 2025-08-12 11:07 | VATNOTE ---
Tang wrap removed from arm. No active bleeding noted from previous IV site, dressing c/d/i. Midline dressing c/d/i. Primary RN updated.
[2025-08-12] MEDS: D5/0.9% SODIUM CHLORIDE 1000 IV (11:48)
[2025-08-12 12:08] LABS: Glucose - Point of Care 99 mg/dl (70-99)
[2025-08-12 12:30] LABS: Venous Blood Gas B.E. 10.2 mmol/L (-4 to +4); Venous Blood Gas O2 Sat % 98.6 %
[2025-08-12 12:31] LABS: Reticulocyte Count 1.3 % (0.4-2.8)
--- NOTE | 2025-08-12 13:03 | PTCARENOTE ---
patient currently off unit to CT scan.
[2025-08-12] MEDS: MAGNESIUM OXIDE 400 MG PO (15:17)
[2025-08-12] MEDS: REQUIP 2 MG PO (15:17)
--- NOTE | 2025-08-12 16:02 | CON.ONC ---
Consultation
-
Date Consultation Requested: 08/12/25
Date Consultation Performed: 08/12/25
Requesting Provider: Dr. Lex Nunes
Performing Provider: Anitra STUART
Reason for Consultation: thrombocytopenia
Impression
Impression
acute respiratory failure
shock requiring pressors
hypothermia
thrombocytopenia
HFpEF
PAF on DOAC
Plan
Plan
thrombocytopenia unclear etiology but suspect that hypothermia is contributing.
Follow cultures, on IV abx
check B12, folate
check DIC panel
no objection to continued apixaban 2.5mg BID for PAF with platelets >50,000 in the abscence of significant bleeding
Patient History
History of Present Illness
79yo F who presented 08/10/2025 for lethargy and weakness at home. She underwent a robotic assisted laparoscopic repair April 15, 2025 with post op course complicated by acute respiratory failure and volume overload. She had been improving at home
and tolerating a regular diet. She had been compliant with her prn lasix for LE edema at home as well. Family noted more fatigued with decreased appetite and performance status at home which prompted t seek further evaluation in the ER. Her
evaluation was notable for acute hypoxic respiratory failure and shock requiring pressor support.
Hematology was consulted for evaluation of thrombocytopenia. Denies any recent new medications or supplements. Other than IV site bleeding today, denies overt bleeding, petechial rash, or bruising otherwise..
Pt is a poor historian, difficult to arrouse. History obtained via chart review and family at bedside ( and 2 daughters).
Past-Medical/Surgical History
PMH paraesophageal hernia, GERD, HTN, restrictive lung disease, RLS, PAF
PSH s/p robotic assisted laparoscopic repair 04/15/2025, PEG 04/26/2025, inguinal hernia repair, partial small bowel resection, right ankle surgery
Social non smoker, denies ETOH or recreational drugs. Lives with retired.
Fmaily non contributory
Patient Medication
�Medication �Instructions �Recorded �Confirmed �Last Taken �Type
pravastatin 20 mg tablet 20 mg PO HS High Cholesterol 08/03/23 08/10/25 08/09/25 History
magnesium oxide 250 mg PO DAILY@1200 Electrolyte 11/26/24 08/10/25 08/10/25 History
Repletion
acetaminophen 325 mg tablet 650 mg (2 x 325 mg) PO Q6HPRN PRN 12/02/24 08/10/25 Unknown Rx
mild pain/ fever>100.5F #0 tabs
ropinirole 0.5 mg tablet 0.5 mg PO HSPRN PRN restless leg 04/08/25 08/10/25 04/14/25 12:00 History
syndrome
diltiazem HCl 120 mg 120 mg PO DAILY #30 caps 05/01/25 08/10/25 08/10/25 Rx
capsule,extended release 24 hr
apixaban 2.5 mg tablet (Eliquis) 2.5 mg PO BID Blood Clot 08/10/25 08/10/25 08/10/25 History
Prevention/Tx
docusate sodium 100 mg capsule 100 mg PO DAILYPRN PRN constipation 08/10/25 08/10/25 08/10/25 History
(Colace)
pantoprazole 40 mg tablet,delayed 40 mg PO DAILY Gastrointestinal 08/10/25 08/10/25 08/10/25 History
release Issue
polyethylene glycol 3350 17 gram 17 g PO DAILYPRN PRN constipation 08/10/25 08/10/25 08/10/25 History
oral powder packet (Miralax)
ropinirole 2 mg tablet 2 mg PO DAILY@1200 RLS 08/10/25 08/10/25 08/10/25 History
therapeutic multivitamin 1 tab PO DAILY@1200 Supplement 08/10/25 08/10/25 08/10/25 History
Active Medications
Generic Name Dose Route Start Last Admin
Trade Name Freq PRN Reason Stop Dose Admin
Acetaminophen 650 mg 08/10/25 22:46
Acetaminophen 325 Mg Tablet PO 09/07/25 22:45
Q4HPRN PRN
Mild Pain / Temp > 101
Apixaban 2.5 mg 08/11/25 08:00 08/12/25 08:37
Apixaban (Eliquis) 2.5 Mg Tablet PO 09/08/25 07:59 2.5 mg
BID ERWIN Administration
Diltiazem HCl 120 mg 08/11/25 08:00 08/11/25 09:03
Diltiazem 120 Mg Extended Release (24 H) Capsule PO 09/08/25 07:59 120 mg
On Hold: 08/11/25 12:18 DAILY ERWIN Administration
Dextrose/Sodium Chloride 1,000 mls @ 75 mls/hr 08/11/25 10:00 08/12/25 11:48
D5/0.9% Sodium Chloride IV 1,000 mls
.[id number] ERWIN Administration
Ampicillin Sodium/Sulbactam 120 mls @ 240 mls/hr 08/11/25 14:00 08/12/25 15:18
Sodium 3 gm/ Sodium Chloride IV 120 mls
Q6H ERWIN Administration
Norepinephrine Bitartrate 4 mg in 250 mls @ 0 mls/hr 08/11/25 12:15 08/11/25 12:29
Levophed IV 250 mls
PER PROTOCOL ERWIN Administration
Protocol
Per Protocol
Magnesium Oxide 400 mg 08/11/25 12:00 08/12/25 15:17
Magnesium Oxide 400 Mg Tablet PO 09/08/25 11:59 400 mg
DAILY@1200 ERWIN Administration
Ondansetron HCl 4 mg 08/11/25 11:17
Ondansetron 4 Mg/2 Ml Vial IV 09/08/25 11:16
Q6HPRN PRN
NAUSEA/VOMITING
Pantoprazole Sodium 40 mg 08/11/25 08:00 08/12/25 08:37
Pantoprazole 40 Mg Delayed Release Tablet PO 09/08/25 07:59 40 mg
DAILY ERWIN Administration
Pravastatin Sodium 20 mg 08/10/25 22:46 08/11/25 21:09
Pravastatin 20 Mg Tablet PO 09/07/25 22:45 20 mg
HS ERWIN Administration
Ropinirole HCl 2 mg 08/11/25 12:00 08/12/25 15:17
Ropinirole 2 Mg Tablet PO 09/08/25 11:59 2 mg
DAILY@1200 ERWIN Administration
Ropinirole HCl 0.5 mg 08/10/25 22:52
Ropinirole 0.25 Mg Tablet PO 09/07/25 22:51
HSPRN PRN
restless leg syndrome
Sodium Chloride 2 sprays 08/11/25 11:17
Sodium Chloride 0.65% Nasal [place] 45 Ml Bottle NASAL 09/08/25 11:16
QIDPRN PRN
dry nose
Sodium Chloride 0 flush 08/11/25 13:00 08/12/25 08:40
Sodium Chloride 0.9% (Flush) Syringe IV 09/08/25 12:59 2 flush
PER PROTOCOL ERWIN Administration
Review of Systems
-
Unable to obtain full review of systems at this time due to: Acuity
History Source: Family
Physical Exam
-
General: No Apparent Distress and Other (lethargic)
HEENT: Moist Mucous Membranes; Negative Jaundice
GI: Soft
Extremities: Pulses Present; Negative Edema
Skin: Warm
Psych: Calm
Labs
Lab Results
WBC 5.2 10^3/uL (4.8-10.8) 08/12/25 05:06
RBC 3.40 10^6/uL (4.20-5.40) L 08/12/25 05:06
Hgb 10.3 g/dL (12.0-16.0) L 08/12/25 05:06
Hct 31.9 % (37.0-47.0) L 08/12/25 05:06
MCV 93.8 fL (81.0-99.0) 08/12/25 05:06
MCH 30.3 pg (27.0-31.0) 08/12/25 05:06
MCHC 32.3 g/dL (33.0-37.0) L 08/12/25 05:06
RDW 16.7 % (11.5-14.5) H 08/12/25 05:06
Plt Count 69 10^3/uL (130-400) L 08/12/25 05:06
MPV 11.8 fL (7.4-10.4) H 08/12/25 05:06
Abs Immat Gran (auto) 0.0 10^3/uL (0-0.05) 08/10/25 18:17
Absolute Neuts (auto) 3.4 10^3/uL (1.4-6.5) 08/10/25 18:17
Absolute Lymphs (auto) 0.4 10^3/uL (1.2-3.4) L 08/10/25 18:17
Absolute Monos (auto) 0.3 10^3/uL (0.1-0.6) 08/10/25 18:17
Absolute Eos (auto) 0.0 10^3/uL (0-0.7) 08/10/25 18:17
Absolute Basos (auto) 0.0 10^3/uL (0-0.2) 08/10/25 18:17
Immature Gran % 0.5 % (0-0.5) 08/10/25 18:17
Neutrophils % 82.1 % (42.2-75.2) H 08/10/25 18:17
Lymphocytes % 10.0 % (20.5-51.1) L 08/10/25 18:17
Monocytes % 6.4 % (1.7-9.3) 08/10/25 18:17
Eosinophils % 0.5 % (0-6) 08/10/25 18:17
Basophils % 0.5 % (0-2) 08/10/25 18:17
Creatinine 0.9 mg/dL (0.6-1.0) 08/12/25 05:06
Vital Signs
Vital Signs
Temp Pulse Resp BP Pulse Ox
97.9 F 65 16 126/67 100
08/12/25 15:10 08/12/25 12:30 08/12/25 12:30 08/12/25 12:30 08/12/25 12:30
--- NOTE | 2025-08-12 16:21 | CM ---
I.A: Completed By ALLISON James
Patient lives with her in a 2 STH, with 1 SANDRA, 14 STI. BR x2 on the 1st and 2nd level. DME: 2 Rolling Walkers, Stair [place], Transfer chair- No other DME.
Patient has [facility] vor VN/PT so re-referral made.
PCP: Dr. Michele Cordero
Pharmacy: [facility] in [place] [address]
Patient has transport home and might need BIPAP so monitoring this. PLAN: Home vs. SNF vs. DME.
--- NOTE | 2025-08-12 16:45 | PTCARENOTE ---
Levo drip was discontinued at 1100 AM. SBP 100-120. Currently SBP 94-110 will continue to monitor frequently. IV fluids infusing as ordered. Patient drowsy today but is arousable. Napping between meals. Family in room at bedside. Right midline
dressing and old AC site with no signs bleeding. Rectal temperature 97.6.
[2025-08-12 18:09] LABS: Glucose - Point of Care 110 mg/dl (70-99)
[2025-08-12] MEDS: ATIVAN 0.25 MG PO (20:55)
[2025-08-12] MEDS: PRAVACHOL 20 MG PO (20:57)
[2025-08-13] VITALS (52 sets, daily range): BP systolic 84–131; BP diastolic 49–89; PULSE 2–80; BMI 19.1
[2025-08-13 00:17] LABS: Glucose - Point of Care 95 mg/dl (70-99)
[2025-08-13] MEDS: UNASYN IV ×4 (01:59→20:13)
[2025-08-13] MEDS: D5/0.9% SODIUM CHLORIDE 1000 IV ×2 (01:59→14:27)
--- NOTE | 2025-08-13 02:58 | PTCARENOTE ---
charisse gonzalez maintained to keep temp > 96.8F. Pt refusing bipap unless ativan given prior to bipap initiation. One time order received for 0.25mg PO ativan. Pt resting comfortably in bed with bipap mask on. VSS. Care ongoing.
[2025-08-13 04:59] LABS: INR 1.28; PT 16.2 Sec (11.4-14.6)
[2025-08-13 05:00] LABS: APTT 36.5 Sec (23.4-35.0); Fibrinogen 436 MG/DL (199-459)
[2025-08-13 05:04] LABS: Hematocrit 28.5 % (37.0-47.0); Hemoglobin 8.9 g/dL (12.0-16.0); Mean Corp Hgb Conc. 31.2 g/dL (33.0-37.0); Mean Corpuscular Volume 96.3 fL (81.0-99.0); Platelet Count 56 10^3/uL (130-400); Red Cell Dist. Width 16.6 % (11.5-14.5)
[2025-08-13 05:08] LABS: ALT (SGPT) 24 U/L (0-35); AST (SGOT) 30 U/L (14-36); Albumin 3.2 g/dl (3.5-5.0); Alkaline Phosphatase 80 U/L (38-126); Blood Urea Nitrogen 21 mg/dl (7-17); Calcium 8.7 mg/dl (8.4-10.2); Carbon Dioxide 37 mmol/L (22-30); Chloride 100 mmol/L (98-107); Estimated Creatinine Clearance 55 ml/min; Glucose 91 mg/dl (70-99); Potassium 4.6 mmol/L (3.5-5.1); Sodium 137 mmol/L (135-145); Total Protein 6.6 g/dl (6.3-8.2); eGFR > 60.00
[2025-08-13 06:30] LABS: Folate 14.5 ng/ml (2.76-20); Vitamin B12 228 pg/ml (239-931)
[2025-08-13 06:32] LABS: Glucose - Point of Care 98 mg/dl (70-99)
[2025-08-13] MEDS: ELIQUIS 2.5 MG PO ×2 (08:28→20:13)
[2025-08-13] MEDS: PROTONIX 40 MG PO (08:28)
[2025-08-13] MEDS: CYANOCOBALAMIN 1000 MCG IM (08:28)
--- NOTE | 2025-08-13 08:37 | W.PN.HOSP.TC ---
Today's Communication/Plan
-
May need to broaden antibiotics if patient decompensates
See plan
Assessment / Plan
Assessment / Plan
Physical Exam
General: Cachectic
HEENT: Oxygen (Nasal cannula)
Respiratory: Decreased breath sounds bilaterally.
Cardiac: Regular Rhythm and S1/S2; Negative Murmur
GI: Nontender and Normal Bowel Sounds
Musculoskeletal: No Edema
Neuro: Awake, Alert, Oriented and No Motor Deficits
Assessment/Plan
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
Small Bilateral Pleural Effusions - Improved
Restrictive Lung Disease
- Patient does not appear grossly volume overloaded, pleural effusions appear decreased from prior and BNP was only 172.
- Low lung volumes, poor compliance with IS and had poor performance on IS (able to inhale 500ml max)
- Note prior mention of chronic, mild hypercapnia as well.
- Patient required intubation during a prior admission and was on BiPAP for a time following that. Continued outpatient use was considered but felt not needed.
- ABG showed pH of 7.34 pCO2 75 -BiPAP trial was ordered -patient with history of difficulty remain on BiPAP due to anxiety
- On 08/13/25, per pulmonary Dr. Vasques: NPO except clears, keep on BiPAP given worsened mental status in setting of respiratory acidosis and hypercapnia
- Postoperatively (following hernia surgery in April 2025), patient has low lung volumes. Possible right hemidiaphragm elevation. Cannot rule out possible diaphragm dysfunction explaining hypercapnia.
- CT of the chest noted Right hemidiaphragm elevation. Bibasilar consolidations suspected to be atelectasis/pneumonia. Minimal pleural effusion. Minimal ground glass infiltrate. Slightly enlarged mediastinal lymphadenopathy
suspect reactive.
- Dr. Morales is patient's outpatient soa engineer
- If patient becomes unresponsive, then she will need to be intubated for airway protection.
Acute toxic metabolic encephalopathy
- Reason unclear. May have component of hypercapnic respiratory failure versus periodic Hypoglycemia -- but hypercapnia does not explain patient's mental status
- Not on any sedative medication
- No brain imaging at admission, will consider ordering if mental status still does not improve
Shock - unknown type
r/o infection
- Patient reported to having systolic blood pressure in 70s
- Started on 08/11/25 empiric Unasyn to cover for pulmonary organism with possible aspiration. Will require broadening with addition of vancomycin if start spiking fever or if patient decompensates.
- Continue Unasyn
- Follow blood culture x2. COVID/Flu neg. UA clear.
- Patient was started on D5 NS at rate of 75 mL/h. Holding on providing bolus due to tenuous pulmonary status.
- Levophed started 08/11/25, but weaned off as of 08/12/25 morning
R/o Dysphagia
Reported h/o of vocal cord dysfunction
- Patient have audible gurgling during the morning rounds
- Have reported history of dysphagia, repeat speech therapy evaluation ordered
- On 08/13/25, per pulmonary Dr. Vasques: NPO except clears, keep on BiPAP given worsened mental status in setting of respiratory acidosis and hypercapnia
Hypoglycemia
- Patient have low borderline BMI of 15. weight has been stable. Family reported appropriate oral intake
- Received D5/NS to support -- continue
- Continue monitoring accuchecks and BMPs
Hypothermia
- At least partly from hypoglycemia. TSH mildy elevated but less than 10, Free T4 normal, cortisol normal --> this does not explain hypothermia.
- Continue Rocio hugger.
- Cardiology does not suspected a cardiac process
- Avoid sedatives
- Added Thiamine 200 mg PO daily in case there is thiamine deficiency
- Dietary consult to optimize nutrition
- If patient decompensates, may need broadened coverage of antibiotics
Thrombocytopenia with some bleeding while on Eliquis -- thrombocytopenia likely from hypothermia, sepsis - continue supportive care
- Thrombocytopenia is new and significant
- Appreciate hematology: okay to continue Eliquis for now with platelets >50,000 in the absence of significant bleeding
- Follow microbiology studies; Vitamin B12 is low, folate level is normal and checked DIC panel
Vitamin B12 Deficiency
- Started Vitamin B12 supplementation
- Transition to daily sublingual B12 (~2000mcg/d) at discharge
Chronic HFpEF (not acute or acute on chronic HFpEF)
-Family reported worsening lower extremity swelling although not much on exam today
-Got IV Lasix 40 mg in the ER. No need for further diuresis.
-Cardiology recommended on holding further diuretics as no signs supporting HF exacerbation.
-Echo done 04/2025 showed normal LVEF and mild - moderate TR. No need to repeat.
-TTE echo from 08/12/25 with no new changes compared to previous one in April 2025
-Can evaluate for SGLT2 inhibitor prior to discharge vs. outpatient setting
-Follow-up with [facility] cardiology outpatient
Abnormal LFTs
- ? med effect, passive congestion, etc.
- No GI complaints. Abd US deferred , can be checked once clinically stable
Leukopenia / Thrombocytopenia
- New from prior admissions.
- No new medications since last discharge (04/2025).
- Hgb decreasing -- suspected from hemodilution, B12 deficiency
- Follow for any improvement / further changes in cell counts.
- Hematology evaluation
Paroxysmal Atrial Fibrillation
- Stable.
- Continue half-dose Eliquis 2.5 mg BID
- Holding Diltiazem given recent hypotension 08/11-08/12 -- resumed short-acting Diltiazem on 08/13/25, but patient became hypotensive again -- so now holding Diltiazem
History of Pleural Effusion
- Thought to be from surgery
- Right sided drained
Benign Hypertension
- Stable. Continue usual medications.
GERD / Hiatal Hernia
- s/p gastropexy 04/16/25 (here at [facility])
- Continue PPI.
RLS
- Stable. Continue ropinirole.
DVT Prophylaxis: On Eliquis
Diet/Speech: NPO except clears (please see above)
Code Status: Full
Care plan discussed with cardiology/pulmonary
Family updated bedside
Total Critical Care Time 55 minutes. I was immediately available to the patient and staff. I personally examined, reviewed labs, diagnostic images/reports, interpretations, treatment plans, discussed patient care with other
providers/soa engineer and family, entered orders as appropriate and documented the medical record.
Anticipated Discharge: > 48 hours
Subjective/Interval History
-
Date of Service: August 13, 2025
Patient was seen and examined. She was doing better this morning, later in the day she became more lethargic with associated hypercapnia and respiratory acidosis.
Objective Data
-
Labs:
Laboratory Results
08/13/25
04:37
WBC 3.7 L
Hgb 8.9 L
Hct 28.5 L
Plt Count 56 L
PT 16.2 H
INR 1.28
APTT 36.5 H
Sodium 137
Potassium 4.6
Chloride 100
Carbon Dioxide 37 H
BUN 21 H
Creatinine 0.7
Glucose 91
Calcium 8.7
Total Bilirubin 0.4
AST 30
ALT 24
Alkaline Phosphatase 80
Vital Signs:
Vital Signs
Temp Pulse Resp BP Pulse Ox
96.6 F L 74 22 117/75 95
08/13/25 08:00 08/13/25 08:00 08/13/25 08:00 08/13/25 08:00 08/13/25 08:00
I&O
08/12/25 08/13/25 08/14/25
06:59 06:59 06:59
Intake Total 1135 / 1135 2160 / 2160
Output Total 775 / 775 940 / 940
Balance 360 / 360 1220 / 1220
[2025-08-13] MEDS: CARDIZEM 30 MG PO ×2 (09:10→12:51)
--- NOTE | 2025-08-13 09:23 | PN.CDI ---
CDI
- -
CDI:
Physician Documentation Request
Admit Date: 08/10/25 22:02
Dear Doctor Manju,
Patient presents with respiratory failure. Progress notes include a diagnosis of heart failure.
Hospitalist and pulmonary refer to the heart failure as chronic.
Cardiology as acute on chronic. Note states 'Does not appear to be volume overloaded and in setting of hypotension ...Normal BNP...CXR with interval improvement in basilar atelectasis and pleural effusion, no e/o pulm edema....Can evaluate for SGLT2
inhibitor prior to discharge vs. outpatient setting'
Lasix IV given x 1 in ED.
In an attempt to clarify potentially conflicting documentation , please clarify which of the following accurately represents the acuity of the heart failure.
Chronic
Acute on chronic
____ Other
Use of terms such as suspected, likely, concern for, or probable (associated with a specific diagnosis that is being evaluated, monitored, or treated as if it exists) are acceptable and can be coded in the inpatient setting, when documented at the
time of discharge.
Thank you,
Cassandra Vazquez RN, BSN
CDI Specialist
tiger text
Please use your independent medical judgment in providing your response.
--- NOTE | 2025-08-13 09:59 | W.PN.CD ---
Today's Communication / Plan
-
don't suspect a cardiac etiology to current process
further work up and evaluation per medicine and additional consultants
will sign off
Impression / Plan
-
A/P: 79-year-old female with history of HFpEF, valvular heart disease, paroxysmal A-fib, hypercapnic respiratory failure, restrictive lung disease, who is here with fatigue and hypoxemia.
Hypercapnic hypoxic respiratory failure
-very somnolent
- Per primary and pulmonary
Hypothermia, hypotension, leukopenia, confusion concerning for possible sepsis;
- cont. abx per primary for possible pneumonia
- thyroid function tests with elevated TSH, normal T4
Chronic HFpEF
- Does not appear to be volume overloaded and in setting of hypotension hold diuretics
- Normal proBNP
- CXR with interval improvement in basilar atelectasis and pleural effusion, no e/o pulm edema
- TTE with normal lvef, pasp 44--no change from prior
- Can evaluate for SGLT2 inhibitor in outpatient setting
Paroxysmal AF
- In sinus rhythm on tele
- Continue Eliquis (half dose given age and weight)
-continue Dilt as bp allows
Pancytopenia
- Per primary/onc no c/s
Hypertension
- now low, hold agents resume as able
Subjective, lethargic
SUMMARY
1. Normal biventricular systolic function. LVEF 60-65%.
2. Moderate tricuspid regurgitation with mildly elevated pulmonary artery systolic pressure (44 mmHg).
3. No significant change compared to prior echocardiogram in April 2025.
Physical Exam
Vital Signs/Labs
Vital Signs
Temp Pulse Resp BP Pulse Ox
96.6 F L 65 14 102/54 95
08/13/25 09:00 08/13/25 09:10 08/13/25 09:00 08/13/25 09:10 08/13/25 09:00
08/12/25 08/13/2525
06:59 06:59 06:59
Actual Weight 122 lb 9.232 oz 118 lb 2.684 oz
08/13/25 04:37
08/13/25 04:37
PT 16.2 Sec (11.4-14.6) H 08/13/25 04:37
INR 1.28 08/13/25 04:37
APTT 36.5 Sec (23.4-35.0) H 08/13/25 04:37
TSH 6.09 uIU/ml (0.47-4.68) H 08/11/25 06:39
Free T4 1.53 ng/dl (0.78-2.19) 08/11/25 06:39
08/10/25
18:17
Kik-R-Vefxjnshqil Pept 172
Physical Exam
Constitutional: Comfortable
Cardiovascular: Rhythm & rate is regular, Pedal edema is absent, JVD pressure is normal, Systolic murmur absent and Diastolic murmur absent
Respiratory: Respiratory effort normal, Lungs clear to auscul., Wheeze Absent, Crackles Absent and Rhonchi Absent
Neuro/Psych: Other (somnolent)
Data Reviewed
-
Date of Service: August 13, 2025
Medical Decision Making: Review of Case with other Provider (Dr Nunes will sign off)
--- NOTE | 2025-08-13 10:30 | PTCARENOTE ---
Assumed care of patient at 0645. Assessment completed and documented in shift assessment. Re-placed charisse hugger as temp dropped below 96.8, initial setting on moderate before increasing to high as her temperature continued to drop. Did verify rectal
probe in correct position. CHG bath completed. Increased NC to 4L as SpO2 dropped to mid-high 80's with turns/AM care. Notified Dr. Nunes that it appears patient is trying to flip into A-Fib this morning, short duration before returning to .
--- NOTE | 2025-08-13 10:49 | W.PN.PUL3 ---
Today's Communication / Plan
-
Secretion clearance interventions:
Vest therapy
Nebulizer therapy
Incentive spirometry encouraged
Acapella device
Continue antibiotics
BiPAP with naps and nocturnal
Minimize sedation
Once infiltrates improve we will repeat blood gas.
Will follow
Assessment
-
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
complicated by respiratory failure with volume overload, hypertension, GERD, and hyperlipidemia who presents with low oxygen levels and altered mental status. For about 1 week prior to arrival, the patient has been increasingly more fatigued with
daytime somnolence and reduced activity. She had been using her incentive spirometer but lately had stopped using it. Patient had no prior cough, sore throat, fevers, chills or known sick contact exposure prior to her symptoms starting. Also no
reported new medications or medication dose changes that could have contributed to her symptoms. Her pulse ox was checked at home by the family and was 86% on room air so the brought her to the hospital for further evaluation. Initial
vitals showed her temperature was 97.4 �F, pulse rate 58, respiratory rate 16, BP 142/77 and she was saturating 94% on room air. Initial labs showed leukopenia to 4.2, Hb 11.7, platelet count 74, INR 1.17, blood gas showed chronic hypercapnia with
pH 7.42 and pCO2 58. proBNP 172. Her urinalysis showed no evidence for UTI. Her flu swab was negative and she was COVID-19 antigen negative as well. CXR showed small bilateral pleural effusions and patchy parenchymal opacities in the bases, both
slightly improved from prior CXR in April 2025. No convincing evidence for pulmonary edema. She was given 40 mg IV Lasix and admitted to telemetry for hypoxemia. Shortly after 5:30 AM after patient admitted, her temperature did drop to as low as
92.1 �F. Blood glucose on morning of 08/11 was low at 61. Patient also reported to have hypotension with SBP in the 70s, and on morning of 08/11 during hospitalist rounds she had audible gurgling that was heard on exam. Patient was started on
Unasyn, started on D5-NS and transferred to IMU for further management with Levophed ordered. Pulmonary service consulted for additional management/recommendations.
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
Eliquis, restrictive lung disease, left thumb CMC joint arthritis, history of anal prolapse
Impression:
#Acute hypoxic respiratory failure
#Acute on chronic chronic hypercapnic respiratory failure
#Circulatory shock requiring vasopressors
#Hypoglycemia
#Hypothermia
#Pancytopenia (had similar values in November 2024)
#Transaminitis
#Moderate restrictive lung defect with T%, VC: 77% and DLCO: 43%, albeit DLco/VA: 68% via PFTs from 02/19/2025
#Moderate tricuspid regurgitation
#Small PFO (seen on echo from April 2025)
#Chronic HFpEF
#Paroxysmal A-fib on Eliquis
#Hx of paraesophageal hernia s/p robotic assisted laparoscopic repair (04/15/2025) with post op course complicated by acute respiratory failure and volume overload
#Restless leg syndrome
Plan:
- Patient has been lethargic this past week and hypoxic
- Found to be hypoglycemic and hypothermic/pancytopenic - -> Unclear etiology- possible toxic metabolic encephalopathy? sepsis
- TSH , free t4 and cortisol normal.
- Hypoglycemia improved- defer management to primary team.
- Frequent FS checks to assure patient not hypoglycemic; need to absolutely keep BG >54, but ideally want to maintain BG >100 and <180, administering additional amps of dextrose if needed
- Last HbA1c: 5.6 on 11/27/2024
- Consider brain imaging if mental status does not improve. Defer to primary team.
- Clinically improved.
-
Hypotension/shock: Levophed was weaned off as of 08/12/2025.
Status post IV fluid resuscitation
Normal renal function.
Normal random cortisol.
Acute/? chronic hypercapnic respiratory failure: Compensated most recent VBG. 08/11/2025--hypercapnia does not explain patient's mental status.
- ABG 08/11/2025 7.35/75/95.
- Mental status has improved.
- Continue to monitor mental status closely/aspiration precautions.
- Mental status improved-patient is having some bleeding from puncture sites due to thrombocytopenia and ongoing anticoagulation.
- Will limit VBG/ABGs, will perform closer to discharge or if clinically needed depending on mental status.
- Avoid sedatives-consider limitation of Ropinirole.
Continue BiPAP with naps and at bedtime at current settings.-Can use intermittently throughout the day if sleeping.
- If patient becomes unresponsive, then she will need to be intubated for airway protection.
- New ? Acute hypoxemic respiratory failure: Continue supplemental oxygen, titrating flow rate to maintain SpO2 >90-94%(hypercapnia not present in April 2025)
- Suspected aspiration pneumonitis/pneumonia-hypoventilatory changes
- Aspiration precautions; PSYCHIATRY RESIDENT saw patient and recommended soft bite-size solids with thin liquids
- CT chest 08/12/2025: Right hemidiaphragm elevation. Bibasilar consolidations suspected to be atelectasis/pneumonia. Minimal pleural effusion. Minimal ground glass infiltrate. Slightly enlarged mediastinal lymphadenopathy suspect reactive.
- Continue Unasyn for now.
-Will obtain a sputum culture if able.
Influenza negative. COVID-negative.
- If patient continues to clinically deteriorate then would broaden antibiotics further
- Follow-up blood cultures x 2 (collected 08/11/2025); UA is clear
-
Interestingly postoperatively patient has low lung volumes. Possible right hemidiaphragm elevation.
Cannot rule out possible diaphragm dysfunction explaining hypercapnia, as well as generalized muscle weakness due to deconditioning.
CT chest as above.
-
Given bibasilar significant atelectasis/airspace disease
Start Secretion clearance interventions
Vest therapy
Nebulizers 3 times a day
Percussion therapy
Increase mobility
Incentive spirometry encouraged.
Favor head of the bed elevation due to possible right diaphragm dysfunction.
Use BiPAP with naps and at bedtime.
Will eventually obtain ABG for baseline once bibasilar infiltrates improved.
-
Pancytopenia: Improved. Unclear etiology.
Normal renal function
Normal coagulation profile.
Hematology following
Atrial fibrillation/heart failure with preserved ejection fraction-appears euvolemic.
Echocardiogram 04/2025: Normal LVEF. Normal right ventricular size and function. Mild to moderate TR.
Normal proBNP.
Cardiology following
Anticoagulation ongoing
- DVT ppx - Eliquis.
Physical therapy/Occupational Therapy as tolerated
Patient will need to follow us again after hospital discharge - last visit was on 05/16/[address] Travis updated family in detail 08/12/2025 and 08/13/2025 at the bedside.
Data:
CXR 08/10/2025:
Small bilateral pleural effusions, improved since radiograph of April 29, 2025.
Patchy parenchymal opacity within both lower lungs, right greater than left, slightly improved from most recent radiograph, suggesting improvement in atelectasis.
Cardiomegaly. No convincing evidence for pulmonary edema pattern.
Outpatient [facility] data:
PFT 02/19/2025:
Postbronchodilator FEV1 1.16 L, 73% of predicted.� FVC 1.57 L, 73% of predicted.� FEV1/FVC 74.
� Lung volumes.� Total lung capacity reduced at 2.91 L, 67% of predicted.
� Diffusion capacity.� Reduced at 7.44, 43% of predicted, when adjusted for alveolar volume to 68% of predicted.
� Conclusion:��Moderate restrictive disease with reduced total lung capacity and reduced diffusion capacity.� No evidence of obstructive airway disease.
6MWT:
12/19/24: At rest, O2 100% on room air, heart rate 81. With ambulation, O2 aureliano 99%, max heart rate 134. 1/10 on dyspnea scale. Ambulated 300 feet.
Labs: �
12/09/2024: Hemoglobin 12, absolute eosinophils 100, carbon dioxide 33, BUN 18, creatinine 0.6
11/30/2024: D-dimer 2.78, ABG pH 7.45, pCO2 46, pO2 73, HCO3 32, O2 sat 96.8
11/29/2024: Ferritin 154
Subjective Data
-
Date of Service:
Date of Service: August 13, 2025
Chief Complaint: Pulmonary Follow Up (Chronic hypercapnic respiratory failure)
Objective Data
Data Reviewed
Vital Signs / I&O / Oxygen:
Vital Signs
Temp Pulse Resp BP Pulse Ox
96.9 F L 66 17 100/54 98
08/13/25 10:00 08/13/25 10:30 08/13/25 10:30 08/13/25 10:30 08/13/25 10:30
Intake and Output
08/12/25 08/13/25 08/14/25
06:59 06:59 06:59
Intake Total 1135 / 1135 2160 / 2160
Output Total 775 / 775 940 / 940
Balance 360 / 360 1220 / 1220
SaO2 98
Nasal Cannula flow liters per 3
minute
Physical Exam
General: Comfortable
HEENT: Normocephalic
Cardiovascular: S1-S2
Respiratory: Non-Labored Respirations and Other ( diminished breath sounds bilaterally. Bronchial breath sounds bilaterally on bases.)
GI: Soft and Non Distended
Neurology: Awake, Alert, No Motor Deficits and Other (Following commands)
Skin: Warm
Labs/Micro/Reports
Lab Data
08/13/25 04:37
08/13/25 04:37
Laboratory Results
08/13/25
04:37
PT 16.2 H
INR 1.28
APTT 36.5 H
Microbiology
08/11/25 12:39 Blood/Venous Blood Culture - Preliminary
No Growth in 24 hours- Final report to follow
08/11/25 12:39 Blood/Venous Blood Culture - Preliminary
No Growth in 24 hours- Final report to follow
08/10/25 21:19 Nasal Swab Influenza Types A & B ([facility]) - Final
Negative for Influenza A & B, NAAT
Negative results must be combined with clinical observations
and patient history.
Nucleic Acid Amplification test (NAAT)performed on the
[employer] platform.
--- NOTE | 2025-08-13 10:49 | W.PN.ONC ---
Today's Communication / Plan
-
Thrombocytopenia likely from hypothermia, sepsis - continue supportive care
B12 shots ordered. Transition to daily sublingual B12 (~2000mcg/d) at discharge - d/w son at bedside
Monitor CBC - anticipate platelet count will improve when overall status improves
no objection to continued apixaban 2.5mg BID for PAF with platelets >50,000 in the absence of significant bleeding
Impression
Impression
acute respiratory failure
shock requiring pressors
hypothermia
thrombocytopenia
B12 defficiency
HFpEF
PAF on DOAC
Plan
Plan
Thrombocytopenia likely from hypothermia, sepsis - continue supportive care
B12 shots ordered. Transition to daily sublingual B12 (~2000mcg/d) at discharge - d/w son at bedside
Monitor CBC - anticipate platelet count will improve when overall status improves
no objection to continued apixaban 2.5mg BID for PAF with platelets >50,000 in the absence of significant bleeding
Subjective/Objective
Subjective/Objective
somnolent
son at bedside
Vital Signs:
Vital Signs
Temp Pulse Resp BP Pulse Ox
96.9 F L 66 17 100/54 98
08/13/25 10:00 08/13/25 10:30 08/13/25 10:30 08/13/25 10:30 08/13/25 10:30
Lab Results:
Laboratory Data
WBC 3.7 10^3/uL (4.8-10.8) L 08/13/25 04:37
Hgb 8.9 g/dL (12.0-16.0) L 08/13/25 04:37
Plt Count 56 10^3/uL (130-400) L 08/13/25 04:37
PT 16.2 Sec (11.4-14.6) H 08/13/25 04:37
INR 1.28 08/13/25 04:37
APTT 36.5 Sec (23.4-35.0) H 08/13/25 04:37
eGFR > 60.00 08/13/25 04:37
[2025-08-13 12:02] LABS: Glucose - Point of Care 105 mg/dl (70-99)
[2025-08-13] MEDS: MAGNESIUM OXIDE 400 MG PO (12:51)
[2025-08-13] MEDS: REQUIP 2 MG PO (12:51)
[2025-08-13] MEDS: DUONEB 3 ML INH ×2 (14:07→19:49)
--- NOTE | 2025-08-13 14:20 | PTCARENOTE ---
Patient more somnolent, softer BP's. Notified Dr. Nunes. ABG, IV Fluid Bolus and Diltiazem put back on hold.
[2025-08-13] MEDS: NSS 250 IV (14:27)
[2025-08-13 14:42] LABS: B.E. 6.6 mmol/L; HCO3 36.2 mmol/L (21-28); O2 Saturation % 97.4 % (94-98); PO2 78 mmHg (83-108)
[2025-08-13 14:45] LABS: PCO2 77 mmHg (32-35)
[2025-08-13] MEDS: VITAMIN B1 PO (16:50)
[2025-08-13] MEDS: D5/0.9% SODIUM CHLORIDE IV (16:51)
[2025-08-13 18:25] LABS: Glucose - Point of Care 113 mg/dl (70-99)
[2025-08-13] MEDS: PRAVACHOL 20 MG PO (20:13)
[2025-08-13 23:54] LABS: Glucose - Point of Care 98 mg/dl (70-99)
[2025-08-14] VITALS (41 sets, daily range): BP systolic 94–159; BP diastolic 54–103; PULSE 2–87; O2SAT 98; BMI 21.3
[2025-08-14] MEDS: UNASYN IV ×4 (03:12→20:22)
--- NOTE | 2025-08-14 03:44 | PTCARENOTE ---
remains on charisse hugger to keep goal temp at or above 96.8. VSS. Remains on BiPAP. Pt resting comfortably in bed at this time. Son at bedside. Remains on IVF and IV ABX. Care ongoing.
[2025-08-14] MEDS: D5/0.9% SODIUM CHLORIDE 1000 IV ×2 (05:36→19:12)
[2025-08-14 05:38] LABS: ALT (SGPT) 20 U/L (0-35); AST (SGOT) 25 U/L (14-36); Albumin 3.0 g/dl (3.5-5.0); Alkaline Phosphatase 80 U/L (38-126); Blood Urea Nitrogen 18 mg/dl (7-17); Calcium 8.6 mg/dl (8.4-10.2); Chloride 100 mmol/L (98-107); Estimated Creatinine Clearance 59 ml/min; Glucose 94 mg/dl (70-99); Potassium 4.3 mmol/L (3.5-5.1); Sodium 136 mmol/L (135-145); Total Protein 6.2 g/dl (6.3-8.2); eGFR > 60.00
[2025-08-14 05:46] LABS: Carbon Dioxide 35 mmol/L (22-30)
[2025-08-14 05:47] LABS: Glucose - Point of Care 86 mg/dl (70-99)
[2025-08-14 05:49] LABS: Hematocrit 28.1 % (37.0-47.0); Hemoglobin 8.6 g/dL (12.0-16.0); Mean Corp Hgb Conc. 30.6 g/dL (33.0-37.0); Mean Corpuscular Volume 101.1 fL (81.0-99.0); Platelet Count 60 10^3/uL (130-400); Red Cell Dist. Width 16.0 % (11.5-14.5)
[2025-08-14 06:17] LABS: B.E. 10.8 mmol/L; HCO3 37.5 mmol/L (21-28); O2 Saturation % 98.7 % (94-98); PCO2 62 mmHg (32-35); PO2 114 mmHg (83-108)
[2025-08-14] MEDS: DUONEB 3 ML INH ×3 (07:17→19:08)
--- NOTE | 2025-08-14 08:25 | W.PN.HOSP.TC ---
Today's Communication/Plan
-
Patient with risk for episodes of hypotension, hypothermia
Will stop IV fluids (which is at room temperature) to see whether that helps with hypothermia
Since Dextrose IV fluids are being stopped, patient must be closely watched for signs and symptoms of hypoglycemia
Continue BiPAP
Assessment / Plan
Assessment / Plan
Physical Exam
General: Cachectic
HEENT: Oxygen (Nasal cannula)
Respiratory: Decreased breath sounds bilaterally.
Cardiac: Regular Rhythm and S1/S2; Negative Murmur
GI: Nontender and Normal Bowel Sounds
Musculoskeletal: No Edema
Neuro: Awake, Alert, Oriented and No Motor Deficits
Assessment/Plan
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
Small Bilateral Pleural Effusions - Improved
Restrictive Lung Disease
- Patient does not appear grossly volume overloaded, pleural effusions appear decreased from prior and BNP was only 172.
- Low lung volumes, poor compliance with IS and had poor performance on IS (able to inhale 500ml max)
- Note prior mention of chronic, mild hypercapnia as well.
- Patient required intubation during a prior admission and was on BiPAP for a time following that. Continued outpatient use was considered but felt not needed.
- ABG showed pH of 7.34 pCO2 75 -BiPAP trial was ordered -patient with history of difficulty remain on BiPAP due to anxiety
- On 08/13/25, given lethargy and hypercapnia per pulmonary Dr. Vasques: NPO except clears, keep on BiPAP given worsened mental status in setting of respiratory acidosis and hypercapnia --
patient later improved
- On 08/14/25, patient improved: continue BiPAP with nights and naps-unchanged on settings
- Postoperatively (following hernia surgery in April 2025), patient has low lung volumes. Possible right hemidiaphragm elevation. Cannot rule out possible diaphragm dysfunction explaining hypercapnia.
- CT of the chest noted Right hemidiaphragm elevation. Bibasilar consolidations suspected to be atelectasis/pneumonia. Minimal pleural effusion. Minimal ground glass infiltrate. Slightly enlarged mediastinal lymphadenopathy
suspect reactive.
- Dr. Morales is patient's outpatient sole rounder
- If patient becomes unresponsive, then she will need to be intubated for airway protection.
Acute toxic metabolic encephalopathy
- Reason unclear. May have component of hypercapnic respiratory failure versus periodic Hypoglycemia -- but hypercapnia does not explain patient's mental status
- Not on any sedative medication
- No brain imaging at admission, will consider ordering if mental status still does not improve
Shock - unknown type
r/o infection
- Patient reported to having systolic blood pressure in 70s
- Started on 08/11/25 empiric Unasyn to cover for pulmonary organism with possible aspiration. Will require broadening with addition of vancomycin if start spiking fever or if patient decompensates.
- Continue Unasyn -- continue antibiotics for 7 days
- Follow blood culture x2. COVID/Flu neg. UA clear.
- Patient was started on D5 NS at rate of 75 mL/h.
- Levophed started 08/11/25, but weaned off as of 08/12/25 morning
R/o Dysphagia
Reported h/o of vocal cord dysfunction
- Patient have audible gurgling during the morning rounds
- Have reported history of dysphagia, repeat speech therapy evaluation ordered
- Continue current diet with regular solids, thin liquids
Hypoglycemia
- Patient have low borderline BMI of 15. weight has been stable. Family reported appropriate oral intake
- Received D5/NS support -- now that patient is eating and drinking again, stop IV fluids
- Continue monitoring accuchecks and BMPs
Hypothermia
- At least partly from hypoglycemia. TSH mildly elevated but less than 10, Free T4 normal, cortisol normal --> this does not explain hypothermia.
- Continue Rocio hugger as needed
- Since patient is eating and drinking, stop IV fluids as IV fluids are at room temperature
- Cardiology does not suspected a cardiac process
- Avoid sedatives
- Added Thiamine 200 mg PO daily on 12/02/25 in case there is thiamine deficiency
- Dietary consult to optimize nutrition
- If patient decompensates, may need broadened coverage of antibiotics
Thrombocytopenia with some bleeding while on Eliquis -- thrombocytopenia likely from hypothermia, sepsis - continue supportive care
- Thrombocytopenia is new and significant
- Appreciate hematology: okay to continue Eliquis for now with platelets >50,000 in the absence of significant bleeding
- Follow microbiology studies; Vitamin B12 is low, folate level is normal and checked DIC panel
Vitamin B12 Deficiency
- Started Vitamin B12 supplementation
- Transition to daily sublingual B12 (~2000mcg/d) at discharge
Normocytic to Macrocytic Anemia
- Hgb dropping
- Patient is already getting Vitamin B12 IM injections
- Ordered iron studies
- Stool occult blood study
Chronic HFpEF (not acute or acute on chronic HFpEF)
-Family reported worsening lower extremity swelling although not much on exam today
-Got IV Lasix 40 mg in the ER. No need for further diuresis.
-Cardiology recommended on holding further diuretics as no signs supporting HF exacerbation.
-Echo done 04/2025 showed normal LVEF and mild - moderate TR. No need to repeat.
-TTE echo from 08/12/25 with no new changes compared to previous one in April 2025
-Can evaluate for SGLT2 inhibitor prior to discharge vs. outpatient setting
-Follow-up with [facility] outpatient
Abnormal LFTs
- ? med effect, passive congestion, etc.
- No GI complaints. Abd US deferred , can be checked once clinically stable
Leukopenia / Thrombocytopenia
- New from prior admissions.
- No new medications since last discharge (04/2025).
- Hgb decreasing -- suspected from hemodilution, B12 deficiency
- Follow for any improvement / further changes in cell counts.
- Hematology evaluation
Paroxysmal Atrial Fibrillation
- Stable.
- Continue half-dose Eliquis 2.5 mg BID
- Holding Diltiazem given recent hypotension 08/11-08/12 -- resumed short-acting Diltiazem on 08/13/25, but patient became hypotensive again -- so now holding Diltiazem
History of Pleural Effusion
- Thought to be from surgery
- Right sided drained
Benign Hypertension
- Stable. Continue usual medications.
GERD / Hiatal Hernia
- s/p gastropexy 04/16/25 (here at [facility])
- Continue PPI.
RLS
- Stable. Continue ropinirole.
DVT Prophylaxis: On Eliquis
Diet/Speech: Regular solids with thin liquids
Code Status: Full
Care plan discussed with pulmonary
Family updated bedside
Anticipated Discharge: > 48 hours
Subjective/Interval History
-
Date of Service: August 14, 2025
Patient was seen and examined. She was doing much better this morning, now significant symptoms or complaints.
Objective Data
-
Labs:
Laboratory Results
08/14/25 08/14/25
04:44 06:06
WBC 3.2 L
Hgb 8.6 L
Hct 28.1 L
Plt Count 60 L
HCO3 37.5 H
Sodium 136
Potassium 4.3
Chloride 100
Carbon Dioxide 35 H
BUN 18 H
Creatinine 0.7
Glucose 94
Calcium 8.6
Total Bilirubin 0.3
AST 25
ALT 20
Alkaline Phosphatase 80
Vital Signs:
Vital Signs
Temp Pulse Resp BP Pulse Ox
97.5 F 70 18 114/70 99
08/14/25 07:00 08/14/25 07:26 08/14/25 07:26 08/14/25 06:30 08/14/25 07:26
I&O
08/13/25 08/14/25 08/15/25
06:59 06:59 06:59
Intake Total 2160 / 2160
Output Total 940 / 940 700 / 700
Balance 1220 / 1220 -700 / -700
[2025-08-14] MEDS: ELIQUIS 2.5 MG PO ×2 (09:04→20:22)
[2025-08-14] MEDS: CYANOCOBALAMIN 1000 MCG IM (09:04)
[2025-08-14] MEDS: PROTONIX 40 MG PO (09:04)
[2025-08-14] MEDS: VITAMIN B1 200 MG PO (09:05)
--- NOTE | 2025-08-14 09:07 | W.PN.PUL3 ---
Today's Communication / Plan
-
Continue BiPAP with nights and naps-unchanged on settings.
Advance diet
Continue antibiotics complete 7 days
Continue secretion clearance interventions
Physical therapy as tolerated
Wean down FiO2
Will follow
Assessment
-
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
complicated by respiratory failure with volume overload, hypertension, GERD, and hyperlipidemia who presents with low oxygen levels and altered mental status. For about 1 week prior to arrival, the patient has been increasingly more fatigued with
daytime somnolence and reduced activity. She had been using her incentive spirometer but lately had stopped using it. Patient had no prior cough, sore throat, fevers, chills or known sick contact exposure prior to her symptoms starting. Also no
reported new medications or medication dose changes that could have contributed to her symptoms. Her pulse ox was checked at home by the family and was 86% on room air so the brought her to the hospital for further evaluation. Initial
vitals showed her temperature was 97.4 �F, pulse rate 58, respiratory rate 16, BP 142/77 and she was saturating 94% on room air. Initial labs showed leukopenia to 4.2, Hb 11.7, platelet count 74, INR 1.17, blood gas showed chronic hypercapnia with
pH 7.42 and pCO2 58. proBNP 172. Her urinalysis showed no evidence for UTI. Her flu swab was negative and she was COVID-19 antigen negative as well. CXR showed small bilateral pleural effusions and patchy parenchymal opacities in the bases, both
slightly improved from prior CXR in April 2025. No convincing evidence for pulmonary edema. She was given 40 mg IV Lasix and admitted to telemetry for hypoxemia. Shortly after 5:30 AM after patient admitted, her temperature did drop to as low as
92.1 �F. Blood glucose on morning of 08/11 was low at 61. Patient also reported to have hypotension with SBP in the 70s, and on morning of 08/11 during hospitalist rounds she had audible gurgling that was heard on exam. Patient was started on
Unasyn, started on D5-NS and transferred to IMU for further management with Levophed ordered. Pulmonary service consulted for additional management/recommendations.
Chronic conditions [facility] CAR[facility]: Hypertension, GERD, restless leg syndrome, paraesophageal hernia s/p robotic assisted laparoscopic repair (04/15/2025), chronic hypercapnic respiratory failure, tricuspid valve regurgitation, hyperlipidemia, paroxysmal A-fib on
Eliquis, restrictive lung disease, left thumb CMC joint arthritis, history of anal prolapse
Impression:
#Acute hypoxic respiratory failure
#Acute on chronic chronic hypercapnic respiratory failure
#Circulatory shock requiring vasopressors
#Hypoglycemia
#Hypothermia
#Pancytopenia (had similar values in November 2024)
#Transaminitis
#Moderate restrictive lung defect with T%, VC: 77% and DLCO: 43%, albeit DLco/VA: 68% via PFTs from 02/19/2025
#Moderate tricuspid regurgitation
#Small PFO (seen on echo from April 2025)
#Chronic HFpEF
#Paroxysmal A-fib on Eliquis
#Hx of paraesophageal hernia s/p robotic assisted laparoscopic repair (04/15/2025) with post op course complicated by acute respiratory failure and volume overload
#Restless leg syndrome
Plan:
-
Clinically improved from the respiratory status this morning.
Alert and cooperative.
Her ABG has significantly improved: 7.39/62/114. Continue with current plan
-
Family at the bedside and updated.
I did discuss possibility of DNR last night-patient herself does not want to be intubated. Family is discussing further.
- Patient has been lethargic this past week and hypoxic-currently clinically improved.
- Found to be hypoglycemic and hypothermic/pancytopenic - -> Unclear etiology- possible toxic metabolic encephalopathy? sepsis
- TSH , free t4 and cortisol normal.
- Consider brain imaging if mental status does not improve. Defer to primary team.
- Clinically improved.
-
Hypotension/shock: Levophed was weaned off as of 08/12/2025.
Status post IV fluid resuscitation
Normal renal function.
Normal random cortisol.
Acute/? chronic hypercapnic respiratory failure: Compensated most recent VBG. 08/11/2025--hypercapnia does not explain patient's mental status.
- ABG 08/11/2025 7.35/75/95.
- Mental status has improved--08/14/2025
- Continue to monitor mental status closely/aspiration precautions.
- ABG improved with more intensity BiPAP usage-should use it during naps and at bedtime.
- Avoid sedatives.
- If patient becomes unresponsive, then she will need to be intubated for airway protection. Remains full code.
- New ? Acute hypoxemic respiratory failure: Continue supplemental oxygen, titrating flow rate to maintain SpO2 >90-94%(hypercapnia not present in April 2025)
- Suspected aspiration pneumonitis/pneumonia-hypoventilatory changes
- Aspiration precautions; CAREER ORIENTATION TEACHER saw patient and recommended soft bite-size solids with thin liquids
- CT chest 08/12/2025: Right hemidiaphragm elevation. Bibasilar consolidations suspected to be atelectasis/pneumonia. Minimal pleural effusion. Minimal ground glass infiltrate. Slightly enlarged mediastinal lymphadenopathy suspect reactive.
- Continue Unasyn for now-complete 7 days.
-Will obtain a sputum culture if able. Not able to produce.
Influenza negative. COVID-negative.
- If patient continues to clinically deteriorate then would broaden antibiotics further
- Follow-up blood cultures x 2 (collected 08/11/2025); UA is clear
-
Interestingly postoperatively patient has low lung volumes. Possible right hemidiaphragm elevation.
Cannot rule out possible diaphragm dysfunction explaining hypercapnia, as well as generalized muscle weakness due to deconditioning.
CT chest as above.
-
Given bibasilar significant atelectasis/airspace disease
Start Secretion clearance interventions
Vest therapy
Nebulizers 3 times a day
Percussion therapy
Increase mobility
Incentive spirometry encouraged.
Favor head of the bed elevation due to possible right diaphragm dysfunction.
Use BiPAP with naps and at bedtime.
-
Pancytopenia: Improved. Unclear etiology.
Normal renal function
Normal coagulation profile.
Hematology following
Atrial fibrillation/heart failure with preserved ejection fraction-appears euvolemic.
Echocardiogram 04/2025: Normal LVEF. Normal right ventricular size and function. Mild to moderate TR.
Normal proBNP.
Cardiology following
Anticoagulation ongoing
Okay to advance diet today.
Bowel regimen
- DVT ppx - Eliquis.
-
Physical therapy/Occupational Therapy as tolerated
Patient will need to follow us again after hospital discharge - last visit was on 05/16/[address] Mor[address] Travis updated family in detail 08/12/2025 and, 08/13/2025, 08/14/2025 at the bedside.
Again, on 08/13/2025 discussed with possibility of updating to DNR. Patient has expressed in the past that she would not want mechanical ventilation. Ongoing discussion with family.
Data:
CXR 08/10/2025:
Small bilateral pleural effusions, improved since radiograph of April 29, 2025.
Patchy parenchymal opacity within both lower lungs, right greater than left, slightly improved from most recent radiograph, suggesting improvement in atelectasis.
Cardiomegaly. No convincing evidence for pulmonary edema pattern.
Outpatient [facility] data:
PFT 02/19/2025:
Postbronchodilator FEV1 1.16 L, 73% of predicted.� FVC 1.57 L, 73% of predicted.� FEV1/FVC 74.
� Lung volumes.� Total lung capacity reduced at 2.91 L, 67% of predicted.
� Diffusion capacity.� Reduced at 7.44, 43% of predicted, when adjusted for alveolar volume to 68% of predicted.
� Conclusion:��Moderate restrictive disease with reduced total lung capacity and reduced diffusion capacity.� No evidence of obstructive airway disease.
6MWT:
12/19/24: At rest, O2 100% on room air, heart rate 81. With ambulation, O2 aureliano 99%, max heart rate 134. 1/10 on dyspnea scale. Ambulated 300 feet.
Labs: �
12/09/2024: Hemoglobin 12, absolute eosinophils 100, carbon dioxide 33, BUN 18, creatinine 0.6
11/30/2024: D-dimer 2.78, ABG pH 7.45, pCO2 46, pO2 73, HCO3 32, O2 sat 96.8
11/29/2024: Ferritin 154
Subjective Data
-
Date of Service:
Date of Service: August 14, 2025
Chief Complaint: Pulmonary Follow Up (Chronic hypercapnic respiratory failure)
Subjective:
Patient feels better this morning
She wore BiPAP overnight, alert and cooperative.
Denies chest pain or shortness of breath at rest
She would like to eat
Review of Systems
Cardiopulmonary: Dyspnea, Dyspnea on Exertion and Sputum Production (Minimal)
Objective Data
Data Reviewed
Vital Signs / I&O / Oxygen:
Vital Signs
Temp Pulse Resp BP Pulse Ox
97.5 F 70 18 114/70 99
08/14/25 07:00 08/14/25 07:26 08/14/25 07:26 08/14/25 06:30 08/14/25 07:26
Intake and Output
08/13/25 08/14/25 08/15/25
06:59 06:59 06:59
Intake Total 2160 / 2160
Output Total 940 / 940 700 / 700
Balance 1220 / 1220 -700 / -700
SaO2 99
Nasal Cannula flow liters per 4
minute
Physical Exam
General: Comfortable
HEENT: Normocephalic
Cardiovascular: S1-S2
Respiratory: Non-Labored Respirations and Other ( diminished breath sounds bilaterally. Bronchial breath sounds bilaterally on bases.)
GI: Soft and Non Distended
Neurology: Awake, Alert, No Motor Deficits and Other (Following commands)
Skin: Warm
Labs/Micro/Reports
Lab Data
08/14/25 04:44
08/14/25 04:44
Laboratory Results
08/13/25 08/14/25
14:30 06:06
pH 7.28 L 7.39
pCO2 77 H* 62 H
pO2 78 L 114 H
HCO3 36.2 H 37.5 H
O2 Delivery Level
Microbiology
08/11/25 12:39 Blood/Venous Blood Culture - Preliminary
No Growth in 48 hours- Final report to follow
08/11/25 12:39 Blood/Venous Blood Culture - Preliminary
No Growth in 48 hours- Final report to follow
[2025-08-14] MEDS: MIRALAX 17 GRAMS PO (09:10)
[2025-08-14] MEDS: REQUIP 2 MG PO (13:53)
[2025-08-14] MEDS: MAGNESIUM OXIDE 400 MG PO (13:53)
--- NOTE | 2025-08-14 16:24 | CM ---
F/U: Patient still on BIPAP so will follow up with Pulmonary who is still seeing if this is something the patient will need. PT/OT recommend Home PT, but patient not ready yet due to worsen mental status. Case Management to follow. PLAN: Home PT
and/ or w/ Bipap or not.
[2025-08-14 18:05] LABS: Glucose - Point of Care 139 mg/dl (70-99)
--- NOTE | 2025-08-14 18:19 | PTCARENOTE ---
Pt received in bed @ 0700. Transitioned to 2 LNC. Diminished breath sounds throughout. SaO2 95% on 2L NC. Cooperative with BiPAP for naps throughout day. Pt ambulated x2 with rolling walker to chair for lunch, Able to void in BSC. Right midline with
D5 NSS infusing @ 75 ml/hr.
[2025-08-14] MEDS: PRAVACHOL 20 MG PO (20:22)
[2025-08-14 22:10] LABS: Glucose - Point of Care 126 mg/dl (70-99)
[2025-08-15] VITALS (18 sets, daily range): BP systolic 90–146; BP diastolic 53–84; PULSE 2–75; BMI 21.8
[2025-08-15] MEDS: UNASYN IV ×4 (03:05→19:29)
[2025-08-15 05:44] LABS: Hematocrit 26.9 % (37.0-47.0); Hemoglobin 8.6 g/dL (12.0-16.0); Mean Corp Hgb Conc. 32.0 g/dL (33.0-37.0); Mean Corpuscular Volume 95.1 fL (81.0-99.0); Platelet Count 82 10^3/uL (130-400); Red Cell Dist. Width 16.2 % (11.5-14.5)
[2025-08-15 05:56] LABS: Blood Urea Nitrogen 14 mg/dl (7-17); Calcium 8.8 mg/dl (8.4-10.2); Chloride 100 mmol/L (98-107); Estimated Creatinine Clearance 69 ml/min; Glucose 87 mg/dl (70-99); Iron 34 ug/dl (37-170); Potassium 4.4 mmol/L (3.5-5.1); Sodium 135 mmol/L (135-145); eGFR > 60.00
[2025-08-15 06:05] LABS: Carbon Dioxide 36 mmol/L (22-30); Total Iron Binding Capacity 226 ug/dl (265-497)
[2025-08-15 06:30] LABS: Ferritin 118.0 ng/ml (11.1-264.0)
[2025-08-15] MEDS: DUONEB 3 ML INH ×3 (07:09→19:19)
--- NOTE | 2025-08-15 07:17 | W.PN.HOSP.TC ---
Today's Communication/Plan
-
See plan
Assessment / Plan
Assessment / Plan
Physical Exam
General: Cachectic
HEENT: Oxygen (Nasal cannula)
Respiratory: Decreased breath sounds bilaterally.
Cardiac: Regular Rhythm and S1/S2; Negative Murmur
GI: Nontender and Normal Bowel Sounds
Musculoskeletal: No Edema
Neuro: Awake, Alert, Oriented and No Motor Deficits
Assessment/Plan
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
Small Bilateral Pleural Effusions - Improved
Restrictive Lung Disease
- Patient does not appear grossly volume overloaded, pleural effusions appear decreased from prior and BNP was only 172.
- Low lung volumes, poor compliance with IS and had poor performance on IS (able to inhale 500ml max)
- Note prior mention of chronic, mild hypercapnia as well.
- Patient required intubation during a prior admission and was on BiPAP for a time following that. Continued outpatient use was considered but felt not needed.
- ABG showed pH of 7.34 pCO2 75 -BiPAP trial was ordered -patient with history of difficulty remain on BiPAP due to anxiety
- On 08/13/25, given lethargy and hypercapnia per pulmonary Dr. Vasques: NPO except clears, keep on BiPAP given worsened mental status in setting of respiratory acidosis and hypercapnia --
patient later improved -- NPO order later had been replaced with a diet
- On 08/14/25, patient improved: continue BiPAP with nights and naps-unchanged on settings
- Postoperatively (following hernia surgery in April 2025), patient has low lung volumes. Possible right hemidiaphragm elevation. Cannot rule out possible diaphragm dysfunction explaining hypercapnia.
- CT of the chest noted Right hemidiaphragm elevation. Bibasilar consolidations suspected to be atelectasis/pneumonia. Minimal pleural effusion. Minimal ground glass infiltrate. Slightly enlarged mediastinal lymphadenopathy
suspect reactive.
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
- If patient becomes unresponsive, then she will need to be intubated for airway protection.
Acute toxic metabolic encephalopathy
- As of 08/15/25, this continues to improve significantly
- Reason unclear. May have component of hypercapnic respiratory failure versus periodic Hypoglycemia -- but hypercapnia does not explain patient's mental status
- Not on any sedative medication
- No brain imaging at admission, will consider ordering if mental status still does not improve
Shock - unknown type
r/o infection
- Patient initially reported to having systolic blood pressure in 70s
- Started on 08/11/25 empiric Unasyn to cover for pulmonary organism with possible aspiration. Will require broadening with addition of vancomycin if start spiking fever or if patient decompensates.
- Continue Unasyn -- continue antibiotics for 7 days total
- Follow blood culture x2 (no growth to date). COVID/Flu neg. UA clear.
- Levophed started 08/11/25, but weaned off as of 08/12/25 morning
R/o Dysphagia
Reported h/o of vocal cord dysfunction
- Patient have audible gurgling during the morning rounds
- Have reported history of dysphagia, repeat speech therapy evaluation ordered
- Continue current diet with regular solids, thin liquids, encourage carbohydrates to prevent hypoglycemia
Hypoglycemia
- Patient have low borderline BMI of 15. weight has been stable. Family reported appropriate oral intake
- Received D5/NS support -- now that patient is eating and drinking again, stopped IV fluids as of 08/14/25 evening
- Continue monitoring accuchecks and BMPs
Hypothermia
- At least partly from hypoglycemia. TSH mildly elevated but less than 10, Free T4 normal, cortisol normal --> this does not explain hypothermia.
- Continue Rocio hugger as needed
- Since patient is eating and drinking, stopped IV fluids as IV fluids are at room temperature and this can possibly be contributing to hypothermia
- Cardiology does not suspected a cardiac process
- Avoid sedatives
- Added Thiamine 200 mg PO daily on 08/13/25 in case there is thiamine deficiency
- Dietary consult to optimize nutrition
- If patient decompensates, may need broadened coverage of antibiotics
Thrombocytopenia with some bleeding while on Eliquis -- thrombocytopenia likely from hypothermia, sepsis - continue supportive care
- On and off bleeding from IV line access on right arm, controlled with the help of IV nurse -- last episode was on 08/15/25
- Thrombocytopenia is new and significant
- Appreciate hematology: okay to continue Eliquis for now with platelets >50,000 in the absence of significant bleeding
- Follow microbiology studies; Vitamin B12 is low, folate level is normal and checked DIC panel
Vitamin B12 Deficiency
- Started Vitamin B12 supplementation
- Transition to daily sublingual B12 (~2000mcg/d) at discharge
Normocytic to Macrocytic Anemia
- Hgb dropping
- Patient is already getting Vitamin B12 IM injections
- Ordered iron studies suggest some iron deficiency anemia -- no objection to oral iron as long as patient is moving her bowels and able to continue a bowel regimen to avoid constipation at home
- As of 08/15/25, patient is noted to be on bowel regimen and has been having bowel movements
- Therefore, start oral iron 325 mg PO Q48H -- no IV iron since patient has a likely infection as above
- Stool occult blood study
Chronic HFpEF (not acute or acute on chronic HFpEF)
-Family reported worsening lower extremity swelling although not much on exam today
-Got IV Lasix 40 mg in the ER. No need for further diuresis.
-Cardiology recommended on holding further diuretics as no signs supporting HF exacerbation.
-Echo done 04/2025 showed normal LVEF and mild - moderate TR. No need to repeat.
-TTE echo from 08/12/25 with no new changes compared to previous one in April 2025
-Can evaluate for SGLT2 inhibitor prior to discharge vs. outpatient setting
-Follow-up with [facility] cardiology outpatient
Abnormal LFTs
- ? med effect, passive congestion, etc.
- No GI complaints. Abd US deferred , can be checked once clinically stable
Leukopenia / Thrombocytopenia
- New from prior admissions.
- No new medications since last discharge (04/2025).
- Hgb WAS decreasing -- suspected from hemodilution, B12 deficiency -- now more stable
- Follow for any improvement / further changes in cell counts.
- Hematology evaluation
Paroxysmal Atrial Fibrillation
- Stable.
- Continue half-dose Eliquis 2.5 mg BID
- Holding Diltiazem given recent hypotension 08/11-08/12 -- resumed short-acting Diltiazem on 08/13/25, but patient became hypotensive again -- so now holding Diltiazem
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
- On 08/15/25 evening, I discussed over [place] [employer] with urologist Dr. Ramos who said that pessary cleaning/change cannot be done here and has to be done as outpatient - none of the urologists who cover the hospital change pessaries
History of Pleural Effusion
- Thought to be from surgery
- Right sided drained
Benign Hypertension
- Stable. Continue usual medications.
GERD / Hiatal Hernia
- s/p gastropexy 04/16/25 (here at [facility])
- Continue PPI.
RLS
- Stable. Continue ropinirole.
DVT Prophylaxis: On Eliquis
Diet/Speech: Regular solids with thin liquids
Code Status: Full
Care plan discussed with pulmonary
Family updated bedside
Anticipated Discharge: 24 - 48 hours
Subjective/Interval History
-
Date of Service: August 15, 2025
Patient was seen and examined. She appeared to be doing a whole lot better today, no new significant issues or complaints.
Objective Data
-
Labs:
Laboratory Results
08/15/25
05:09
WBC 4.1 L
Hgb 8.6 L
Hct 26.9 L
Plt Count 82 L D
Sodium 135
Potassium 4.4
Chloride 100
Carbon Dioxide 36 H
BUN 14
Creatinine 0.6
Glucose 87
Calcium 8.8
Vital Signs:
Vital Signs
Temp Pulse Resp BP Pulse Ox
97.9 F 61 24 90/53 94
08/15/25 03:00 08/15/25 03:00 08/15/25 03:00 08/15/25 02:00 08/15/25 03:22
I&O
08/14/25 08/15/25 08/16/25
06:59 06:59 06:59
Intake Total 1380 / 1380
Output Total 700 / 700 450 / 450
Balance -700 / -700 930 / 930
[2025-08-15 08:28] LABS: Glucose - Point of Care 81 mg/dl (70-99)
[2025-08-15] MEDS: CYANOCOBALAMIN 1000 MCG IM (08:50)
[2025-08-15] MEDS: MIRALAX 17 GRAMS PO (08:52)
[2025-08-15] MEDS: ELIQUIS 2.5 MG PO ×2 (08:52→19:28)
[2025-08-15] MEDS: PROTONIX 40 MG PO (08:52)
[2025-08-15] MEDS: VITAMIN B1 200 MG PO (08:53)
--- NOTE | 2025-08-15 10:13 | W.PN.PUL3 ---
Today's Communication / Plan
-
Cont. Secretion clearance interventions
Cont. ABX for 2 additonal days
IS
increase mobility--> PT/OT as tolerated.
Wean down FiO2
Bipap with naps and HS
Asp. precautions.
Will follow
Assessment
-
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
complicated by respiratory failure with volume overload, hypertension, GERD, and hyperlipidemia who presents with low oxygen levels and altered mental status. For about 1 week prior to arrival, the patient has been increasingly more fatigued with
daytime somnolence and reduced activity. She had been using her incentive spirometer but lately had stopped using it. Patient had no prior cough, sore throat, fevers, chills or known sick contact exposure prior to her symptoms starting. Also no
reported new medications or medication dose changes that could have contributed to her symptoms. Her pulse ox was checked at home by the family and was 86% on room air so the brought her to the hospital for further evaluation. Initial
vitals showed her temperature was 97.4 �F, pulse rate 58, respiratory rate 16, BP 142/77 and she was saturating 94% on room air. Initial labs showed leukopenia to 4.2, Hb 11.7, platelet count 74, INR 1.17, blood gas showed chronic hypercapnia with
pH 7.42 and pCO2 58. proBNP 172. Her urinalysis showed no evidence for UTI. Her flu swab was negative and she was COVID-19 antigen negative as well. CXR showed small bilateral pleural effusions and patchy parenchymal opacities in the bases, both
slightly improved from prior CXR in April 2025. No convincing evidence for pulmonary edema. She was given 40 mg IV Lasix and admitted to telemetry for hypoxemia. Shortly after 5:30 AM after patient admitted, her temperature did drop to as low as
92.1 �F. Blood glucose on morning of 08/11 was low at 61. Patient also reported to have hypotension with SBP in the 70s, and on morning of 08/11 during hospitalist rounds she had audible gurgling that was heard on exam. Patient was started on
Unasyn, started on D5-NS and transferred to IMU for further management with Levophed ordered. Pulmonary service consulted for additional management/recommendations.
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
Eliquis, restrictive lung disease, left thumb CMC joint arthritis, history of anal prolapse
Impression:
#Acute hypoxic respiratory failure
#Acute on chronic chronic hypercapnic respiratory failure
#Circulatory shock requiring vasopressors
#Hypoglycemia
#Hypothermia
#Pancytopenia (had similar values in November 2024)
#Transaminitis
#Moderate restrictive lung defect with T%, VC: 77% and DLCO: 43%, albeit DLco/VA: 68% via PFTs from 02/19/2025
#Moderate tricuspid regurgitation
#Small PFO (seen on echo from April 2025)
#Chronic HFpEF
#Paroxysmal A-fib on Eliquis
#Hx of paraesophageal hernia s/p robotic assisted laparoscopic repair (04/15/2025) with post op course complicated by acute respiratory failure and volume overload
#Restless leg syndrome
Plan:
-
Clinically improved from the respiratory status this morning. ON 4L NC
On the commode.
Alert and cooperative.
Her ABG has significantly improved: 7.39/62/114( 08/14/2025). Continue with current plan
-
- Mental status back to baseline.
- Found to be hypoglycemic and hypothermic/pancytopenic - -> Unclear etiology- possible toxic metabolic encephalopathy? sepsis
- TSH , free t4 and cortisol normal.
- Consider brain imaging if mental status does not improve. Defer to primary team.
- Clinically improved since 08/14/2025.
-
Hypotension/shock: Levophed was weaned off as of 08/12/2025.
Status post IV fluid resuscitation
Normal renal function.
Normal random cortisol.
Acute/? chronic hypercapnic respiratory failure: Compensated most recent VBG. 08/11/2025--hypercapnia does not explain patient's mental status.
- ABG 08/11/2025 7.35/75/95---> ABG improved post Bipap..
- Mental status has improved--08/14/2025
- Continue to monitor mental status closely/aspiration precautions.
- ABG improved with more intensity BiPAP usage-should use it during naps and at bedtime.
- Avoid sedatives.
- If patient becomes unresponsive, then she will need to be intubated for airway protection. Remains full code.
- New ? Acute hypoxemic respiratory failure: Continue supplemental oxygen, titrating flow rate to maintain SpO2 >90-94%(hypercapnia not present in April 2025)
Interestingly postoperatively patient has low lung volumes. Possible right hemidiaphragm elevation.
Cannot rule out possible diaphragm dysfunction explaining hypercapnia, as well as generalized muscle weakness due to deconditioning.
- Suspected aspiration pneumonitis/pneumonia-hypoventilatory changes
- Aspiration precautions; ELEMENTARY PRINCIPAL saw patient and recommended soft bite-size solids with thin liquids
- CT chest 08/12/2025: Right hemidiaphragm elevation. Bibasilar consolidations suspected to be atelectasis/pneumonia. Minimal pleural effusion. Minimal ground glass infiltrate. Slightly enlarged mediastinal lymphadenopathy suspect reactive.
- Continue Unasyn for now-complete 7 days.( last day 08/17/2025)
-Sputum culture--> Not able to produce.
Influenza negative. COVID-negative.
Follow-up blood cultures x 2 (collected 08/11/2025); UA is clear
-
Given bibasilar significant atelectasis/airspace disease
Start Secretion clearance interventions
Vest therapy
Nebulizers 3 times a day
Percussion therapy
Increase mobility
Incentive spirometry encouraged.
Favor head of the bed elevation due to possible right diaphragm dysfunction.
Use BiPAP with naps and at bedtime.10/5 cm H2O-->>tolerating this settings better.
Suspect will need Bipap at DC -->> will obtain ABG Tue or Tuesday unless there is change on resp. status.
-
Pancytopenia: Improved. Unclear etiology.
Normal renal function
Normal coagulation profile.
Hematology following
Atrial fibrillation/heart failure with preserved ejection fraction-appears euvolemic.
Echocardiogram 04/2025: Normal LVEF. Normal right ventricular size and function. Mild to moderate TR.
Normal proBNP.
Cardiology following
Anticoagulation ongoing
Okay to advance diet today.
Bowel regimen
- DVT ppx - Eliquis.
-
Physical therapy/Occupational Therapy as tolerated
Patient will need to follow us again after hospital discharge - last visit was on 05/16/[address] Travis updated family in detail 08/12/2025 and, 08/13/2025, 08/14/2025, 08/15/2025 at the bedside.
-
Again, on 08/13/2025 discussed with possibility of updating to DNR. Patient has expressed in the past that she would not want mechanical ventilation. Ongoing discussion with family.
Data:
CXR 08/10/2025:
Small bilateral pleural effusions, improved since radiograph of April 29, 2025.
Patchy parenchymal opacity within both lower lungs, right greater than left, slightly improved from most recent radiograph, suggesting improvement in atelectasis.
Cardiomegaly. No convincing evidence for pulmonary edema pattern.
Outpatient [facility] data:
PFT 02/19/2025:
Postbronchodilator FEV1 1.16 L, 73% of predicted.� FVC 1.57 L, 73% of predicted.� FEV1/FVC 74.
� Lung volumes.� Total lung capacity reduced at 2.91 L, 67% of predicted.
� Diffusion capacity.� Reduced at 7.44, 43% of predicted, when adjusted for alveolar volume to 68% of predicted.
� Conclusion:��Moderate restrictive disease with reduced total lung capacity and reduced diffusion capacity.� No evidence of obstructive airway disease.
6MWT:
12/19/24: At rest, O2 100% on room air, heart rate 81. With ambulation, O2 aureliano 99%, max heart rate 134. 1/10 on dyspnea scale. Ambulated 300 feet.
Labs: �
12/09/2024: Hemoglobin 12, absolute eosinophils 100, carbon dioxide 33, BUN 18, creatinine 0.6
11/30/2024: D-dimer 2.78, ABG pH 7.45, pCO2 46, pO2 73, HCO3 32, O2 sat 96.8
11/29/2024: Ferritin 154
Subjective Data
-
Date of Service:
Date of Service: August 15, 2025
Chief Complaint: Pulmonary Follow Up (Chronic hypercapnic respiratory failure)
Subjective:
Feels better.
Tolerating Bipap.
Denies significant phleghm productions.
Review of Systems
Cardiopulmonary: Dyspnea (n)
GI: Abdominal Pain (n) and Nausea (n)
Objective Data
Data Reviewed
Vital Signs / I&O / Oxygen:
Vital Signs
Temp Pulse Resp BP Pulse Ox
98 F 72 14 90/53 96
08/15/25 07:30 08/15/25 07:17 08/15/25 07:17 08/15/25 02:00 08/15/25 07:17
Intake and Output
08/14/25 08/15/25 08/16/25
06:59 06:59 06:59
Intake Total 1380 / 1380
Output Total 700 / 700 450 / 450
Balance -700 / -700 930 / 930
SaO2 96
Nasal Cannula flow liters per 4
minute
Physical Exam
General: Comfortable
HEENT: Normocephalic
Cardiovascular: S1-S2
Respiratory: Wheeze (none), Non-Labored Respirations and Other ( diminished breath sounds bilaterally. Bronchial breath sounds bilaterally on bases.)
GI: Soft and Non Distended
Neurology: Awake, Alert, No Motor Deficits and Other (Following commands)
Skin: Warm
Labs/Micro/Reports
Lab Data
08/15/25 05:09
08/15/25 05:09
Microbiology
08/13/25 18:24 Nose MRSA Screen - Final
No Methicillin Resistant Staphylococcus aureus isolated.
08/11/25 12:39 Blood/Venous Blood Culture - Preliminary
No Growth in 72 hours- Final report to follow
08/11/25 12:39 Blood/Venous Blood Culture - Preliminary
No Growth in 72 hours- Final report to follow
--- NOTE | 2025-08-15 11:05 | W.PN.ONC2 ---
Today's Communication / Plan
-
continue to monitor CBC for platelet recovery
family at bedside provided updates and questions answered
hematology will see prn upon request -please reach out for any questions or concerns
Impression
Impression
acute respiratory failure
shock requiring pressors
hypothermia
thrombocytopenia
B12 defficiency
HFpEF
PAF on DOAC
Plan
Plan
Thrombocytopenia likely from hypothermia, sepsis - continue supportive care
B12 shots ordered. Transition to daily sublingual B12 (~2000mcg/d) at discharge
Monitor CBC - anticipate platelet count will improve when overall status improves -Platelets improved to 86,000 today
no objection to continued apixaban 2.5mg BID for PAF with platelets >50,000 in the absence of significant bleeding
Subjective/Objective
Subjective
reports some oozing at midline site this morning, now resolved
denies pain
Vital Signs:
Vital Signs
Temp Pulse Resp BP Pulse Ox
97.9 F 82 24 146/84 93
08/15/25 10:37 08/15/25 10:30 08/15/25 10:30 08/15/25 10:26 08/15/25 10:30
Lab Results:
Laboratory Data
WBC 4.1 10^3/uL (4.8-10.8) L 08/15/25 05:09
Hgb 8.6 g/dL (12.0-16.0) L 08/15/25 05:09
Plt Count 82 10^3/uL (130-400) L D 08/15/25 05:09
PT 16.2 Sec (11.4-14.6) H 08/13/25 04:37
INR 1.28 08/13/25 04:37
APTT 36.5 Sec (23.4-35.0) H 08/13/25 04:37
eGFR > 60.00 08/15/25 05:09
Physical Exam
HEENT: No Jaundice
Pulmonary: Other (unlabored)
Extremities: Pulses Present
[2025-08-15 12:15] LABS: Glucose - Point of Care 137 mg/dl (70-99)
[2025-08-15] MEDS: MAGNESIUM OXIDE 400 MG PO (12:19)
[2025-08-15] MEDS: REQUIP 2 MG PO (12:19)
--- NOTE | 2025-08-15 12:54 | PTCARENOTE ---
pt on 1-3 L O2 based on activity, OOB to commode. Alert, slow speech and decision making. Eating well, BS 139. Maintains temp, charisse hugger removed, rectal probe in place. Placed on Bipap for naps. Family present for all care and updates.
--- NOTE | 2025-08-15 14:44 | VATNOTE ---
Asked by pt's PCN to assess pt's midline site first thing this AM. Upon assessment, site saturated with blood. Dressing was changed and quikclot applied and site wrapped with ELISABETH. Dressing was checked multiple times over the hour and no oozing
noted. When midline checked for a final time before this VAT RN left the floor, clinical instructor had began to peel dressing off of midline site as she thought the pressure was causing the midline to become occluded. This VAT RN flushed midline
with no issues. Site was redressed, but a few hours later this VAT RN was called because midline site was saturated again. At this time decision was made to remove midline and place a PIV. Quikclot applied to site, but very quickly site became
saturated and dressing had to be changed again. This dressing change, site was dressed w/ surgifoam and wrapped with ELISABETH. Will continue to monitor.
--- NOTE | 2025-08-15 15:18 | PN.CDI ---
CDI
- -
CDI:
Physician Documentation Request
Admit Date: 08/10/25 22:02
Dear
[facility] is using an adapted version of the 2016 Third International Consensus Definitions for Sepsis and Septic Shock (Sepsis-3) where sepsis is defined as life threatening organ dysfunction caused by a deregulated host response to infection.
Please reference the official [facility] Sepsis Recognition Tool for further information, which can be found on the Intranet under Infection Prevention.
Clinical Indicators Include:
Progress Notes include a diagnosis of acute on chronic combined hypoxic/hypercapnic respiratory failure, acute toxic metabolic encephalopathy and shock-unknown type
Pulmonary notes states 'suspected aspiration pneumonitis/pneumonia'
Patient has received Unasyn since 08/11
Labs:
Platelets:
Laboratory Tests
08/10/25 08/11/25 08/12/25
18:17 06:39 05:06
Plt Count 74 L 67 L 69 L
08/13/25 08/14/25 08/15/25
04:37 04:44 05:09
Plt Count 56 L 60 L 82 L D
Based on your medical judgment, can you further clarify the diagnosis being monitored/treated this admission?
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
� Sepsis due to aspiration pneumonia with organ dysfunction of acute toxic metabolic encephalopathy
� Sepsis with Septic Shock due to aspiration pneumonia
� aspiration pneumonia only
� Other
� Clinically unable to determine
Use of terms such as suspected, likely, concern for, or probable (associated with a specific diagnosis that is being evaluated, monitored, or treated as if it exists) are acceptable and can be coded in the inpatient setting when documented at the
time of discharge.
Please use your independent medical judgement in providing your response.
Thank you,
Cassandra ABDULLAHI
CDI Specialist
tiger text
[2025-08-15 17:10] LABS: Glucose - Point of Care 103 mg/dl (70-99)
--- NOTE | 2025-08-15 18:31 | VATNOTE ---
Dressing checked one more time before this VAT RN left the shift. Dressing w/ 50% drainage, but is unchanged since 1599. Dressing was marked at that time. Tang rewrapped loosely. Will continue to monitor.
--- NOTE | 2025-08-15 20:43 | PTCARENOTE ---
Addendum entered by Mayela Zafar RN 08/15/25 20:43:
prematurely saved note
Original Note:
assue
--- NOTE | 2025-08-15 20:44 | PTCARENOTE ---
Assumed care of pt from dayshift RN after change of shift report. Pt family at bedside, pt aaox3. currently wearing 2L 02 satting 98%. denies SOB at this time. shallow breaths. deep breathing and use of acapella and IS encouraged. assessment as
documented call light in reach.
[2025-08-15] MEDS: PRAVACHOL 20 MG PO (22:00)
[2025-08-15 22:45] LABS: Glucose - Point of Care 118 mg/dl (70-99)
[2025-08-16] VITALS (18 sets, daily range): BP systolic 103–157; BP diastolic 58–92; PULSE 2–134; O2SAT 100; BMI 21.5
[2025-08-16] MEDS: UNASYN IV ×4 (02:56→20:32)
[2025-08-16 05:40] LABS: Hematocrit 27.9 % (37.0-47.0); Hemoglobin 8.8 g/dL (12.0-16.0); Mean Corp Hgb Conc. 31.5 g/dL (33.0-37.0); Mean Corpuscular Volume 94.9 fL (81.0-99.0); Platelet Count 117 10^3/uL (130-400); Red Cell Dist. Width 15.9 % (11.5-14.5)
[2025-08-16 06:04] LABS: Blood Urea Nitrogen 13 mg/dl (7-17); Calcium 9.0 mg/dl (8.4-10.2); Chloride 97 mmol/L (98-107); Estimated Creatinine Clearance 59 ml/min; Glucose 75 mg/dl (70-99); Potassium 4.3 mmol/L (3.5-5.1); Sodium 134 mmol/L (135-145); eGFR > 60.00
[2025-08-16 06:26] LABS: Carbon Dioxide 39 mmol/L (22-30)
[2025-08-16] MEDS: DUONEB 3 ML INH ×3 (07:19→20:45)
[2025-08-16 08:00] LABS: Glucose - Point of Care 82 mg/dl (70-99)
--- NOTE | 2025-08-16 08:45 | W.PN.HOSP.TC ---
Today's Communication/Plan
-
See plan
Assessment / Plan
Assessment / Plan
Physical Exam
General: Cachectic
HEENT: Oxygen (Nasal cannula)
Respiratory: Decreased breath sounds bilaterally.
Cardiac: Regular Rhythm and S1/S2
GI: Nontender and Normal Bowel Sounds
Musculoskeletal: No Edema
Neuro: Awake, Alert, Oriented and No Motor Deficits
Assessment/Plan
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
Small Bilateral Pleural Effusions - Improved
Restrictive Lung Disease
- Patient does not appear grossly volume overloaded, pleural effusions appear decreased from prior and BNP was only 172.
- Low lung volumes, poor compliance with IS and had poor performance on IS (able to inhale 500ml max)
- Note prior mention of chronic, mild hypercapnia as well.
- Patient required intubation during a prior admission and was on BiPAP for a time following that. Continued outpatient use was considered but felt not needed.
- ABG showed pH of 7.34 pCO2 75 -BiPAP trial was ordered -patient with history of difficulty remain on BiPAP due to anxiety
- On 08/13/25, given lethargy and hypercapnia per pulmonary Dr. Vasques: NPO except clears, keep on BiPAP given worsened mental status in setting of respiratory acidosis and hypercapnia --
patient later improved -- NPO order later had been replaced with a diet
- On 08/14/25, patient improved: continue BiPAP with nights and naps-unchanged on settings
- Continue Vest therapy
- Continue incentive spirometer
- Postoperatively (following hernia surgery in April 2025), patient has low lung volumes. Possible right hemidiaphragm elevation. Cannot rule out possible diaphragm dysfunction explaining hypercapnia.
- CT of the chest noted Right hemidiaphragm elevation. Bibasilar consolidations suspected to be atelectasis/pneumonia. Minimal pleural effusion. Minimal ground glass infiltrate. Slightly enlarged mediastinal lymphadenopathy
suspect reactive.
- Dr. Morales is patient's outpatient electronic test technician
- If patient becomes unresponsive, then she will need to be intubated for airway protection.
- Repeat chest x-ray tomorrow to follow-up on bilateral infiltrates
- Repeat ABG tomorrow morning
Acute toxic metabolic encephalopathy
- As of 08/15/25, this continues to improve significantly
- Reason unclear. May have component of hypercapnic respiratory failure versus periodic Hypoglycemia -- but hypercapnia does not explain patient's mental status
- Not on any sedative medication
- No brain imaging at admission, will consider ordering if mental status still does not improve
Shock - unknown type
r/o infection
- Patient initially reported to having systolic blood pressure in 70s
- Started on 08/11/25 empiric Unasyn to cover for pulmonary organism with possible aspiration. Will require broadening with addition of vancomycin if start spiking fever or if patient decompensates.
- Continue Unasyn -- continue antibiotics for 7 days total
- Follow blood culture x2 (no growth to date). COVID/Flu neg. UA clear.
- Levophed started 08/11/25, but weaned off as of 08/12/25 morning
R/o Dysphagia
Reported h/o of vocal cord dysfunction
- Patient have audible gurgling during the morning rounds
- Have reported history of dysphagia, repeat speech therapy evaluation ordered
- Continue current diet with regular solids, thin liquids, encourage carbohydrates to prevent hypoglycemia
Hypoglycemia
- Patient have low borderline BMI of 15. weight has been stable. Family reported appropriate oral intake
- Received D5/NS support -- now that patient is eating and drinking again, stopped IV fluids as of 08/14/25 evening
- Continue monitoring accuchecks and BMPs
Hypothermia
- At least partly from hypoglycemia. TSH mildly elevated but less than 10, Free T4 normal, cortisol normal --> this does not explain hypothermia.
- Continue Rocio hugger as needed
- Since patient is eating and drinking, stopped IV fluids as IV fluids are at room temperature and this can possibly be contributing to hypothermia
- Cardiology does not suspected a cardiac process
- Avoid sedatives
- Added Thiamine 200 mg PO daily on 08/13/25 in case there is thiamine deficiency
- Dietary consult to optimize nutrition
- If patient decompensates, may need broadened coverage of antibiotics
Thrombocytopenia with some bleeding while on Eliquis -- thrombocytopenia likely from hypothermia, sepsis - continue supportive care
- On and off bleeding from IV line access on right arm, controlled with the help of IV nurse -- last episode was on 08/15/25
- Thrombocytopenia is new and significant
- Appreciate hematology: okay to continue Eliquis for now with platelets >50,000 in the absence of significant bleeding
- Follow microbiology studies; Vitamin B12 is low, folate level is normal and checked DIC panel
Vitamin B12 Deficiency
- Started Vitamin B12 supplementation
- Transition to daily sublingual B12 (~2000mcg/d) at discharge
Normocytic to Macrocytic Anemia
- Hgb dropping -- suspected from right arm bleeding around IV access site
- Patient is already getting Vitamin B12 IM injections
- Ordered iron studies suggest some iron deficiency anemia -- no objection to oral iron as long as patient is moving her bowels and able to continue a bowel regimen to avoid constipation at home
- As of 08/15/25, patient is noted to be on bowel regimen and has been having bowel movements
- Therefore, start oral iron 325 mg PO Q48H -- no IV iron since patient has a likely infection as above
Chronic HFpEF (not acute or acute on chronic HFpEF)
-Family reported worsening lower extremity swelling although not much on exam today
-Got IV Lasix 40 mg in the ER. No need for further diuresis.
-Cardiology recommended on holding further diuretics as no signs supporting HF exacerbation.
-Echo done 04/2025 showed normal LVEF and mild - moderate TR. No need to repeat.
-TTE echo from 08/12/25 with no new changes compared to previous one in April 2025
-Can evaluate for SGLT2 inhibitor prior to discharge vs. outpatient setting
-Follow-up with [facility] cardiology outpatient
Abnormal LFTs
- ? med effect, passive congestion, etc.
- No GI complaints. Abd US deferred , can be checked once clinically stable
Leukopenia / Thrombocytopenia
- New from prior admissions.
- No new medications since last discharge (04/2025).
- Hgb WAS decreasing -- suspected from hemodilution, B12 deficiency -- now more stable
- Follow for any improvement / further changes in cell counts.
- Hematology evaluation
Paroxysmal Atrial Fibrillation
- Stable.
- Continue half-dose Eliquis 2.5 mg BID
- Holding Diltiazem given recent hypotension 08/11-08/12 -- resumed short-acting Diltiazem on 08/13/25, but patient became hypotensive again -- so now holding Diltiazem
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
- On 08/15/25 evening, I discussed over [employer] Text with urologist Dr. Ramos who said that pessary cleaning/change cannot be done here and has to be done as outpatient - none of the urologists who cover the hospital change pessaries
History of Pleural Effusion
- Thought to be from surgery
- Right sided drained
Benign Hypertension
- Stable. Continue usual medications.
GERD / Hiatal Hernia
- s/p gastropexy 04/16/25 (here at [facility])
- Continue PPI.
RLS
- Stable. Continue ropinirole.
DVT Prophylaxis: On Eliquis
Diet/Speech: Regular solids with thin liquids
Code Status: Full
Plan to discharge patient on O2 and VAPS therapy. Bilevel/RAD has been tried in hospital previously and has proven ineffective at managing this patient�s hypercapnia and has been on VAPS Mode tolerating well. The patient has Restrictive Lung disease
and Acute on Chronic Respiratory Failure requiring the need for NIMV- Target tidal volume with adjustable pressures will help reduce pCO2 levels, increase oxygenation, and help improve overall Respiratory status and re-admission to the hospital.
This patient also requires continuous alarms, battery back-up and portability which are not possible with Bilevel/RAD devices as interruption or power failure may cause serious respiratory medical consequences and/ or even life threatening.
Care plan discussed with pulmonary
Family updated bedside
Anticipated Discharge: > 48 hours
Subjective/Interval History
-
Date of Service: August 16, 2025
Patient was seen and examined. She continues to do well today, denied any new symptoms or complaints.
Objective Data
-
Labs:
Laboratory Results
08/16/25
05:21
WBC 3.6 L
Hgb 8.8 L
Hct 27.9 L
Plt Count 117 L D
Sodium 134 L
Potassium 4.3
Chloride 97 L
Carbon Dioxide 39 H
BUN 13
Creatinine 0.7
Glucose 75
Calcium 9.0
Vital Signs:
Vital Signs
Temp Pulse Resp BP Pulse Ox
98.1 F 84 24 136/73 94
08/16/25 07:50 08/16/25 08:00 08/16/25 08:00 08/16/25 08:00 08/16/25 08:00
I&O
08/15/25 08/16/25 08/17/25
06:59 06:59 06:59
Intake Total 1380 / 1380 720 / 720
Output Total 450 / 450
Balance 930 / 930 720 / 720
--- NOTE | 2025-08-16 09:10 | VATNOTE ---
Tang wrap removed from RUE at this time. Will continue to monitor.
[2025-08-16] MEDS: VITAMIN B1 200 MG PO (09:33)
[2025-08-16] MEDS: FEOSOL 325 MG PO (09:33)
[2025-08-16] MEDS: MIRALAX 17 GRAMS PO (09:33)
[2025-08-16] MEDS: ELIQUIS 2.5 MG PO ×2 (09:33→20:29)
[2025-08-16] MEDS: CYANOCOBALAMIN 1000 MCG IM (09:33)
[2025-08-16] MEDS: PROTONIX 40 MG PO (09:33)
--- NOTE | 2025-08-16 10:27 | W.PN.PUL3 ---
Today's Communication / Plan
-
Continue oxy supplementation currently at 3 L-wean down as able
Repeat chest x-ray tomorrow to follow-up on bilateral infiltrates
Obtain ABG in the morning for baseline
Continue BiPAP at night and with naps as able
Will probably need BiPAP at DC
Continue nebulizers to aid with secretion clearance
Continue vest therapy
Continue to encourage incentive spirometry
Physical therapy/Occupational Therapy as tolerated
Will follow
Assessment
-
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
complicated by respiratory failure with volume overload, hypertension, GERD, and hyperlipidemia who presents with low oxygen levels and altered mental status. For about 1 week prior to arrival, the patient has been increasingly more fatigued with
daytime somnolence and reduced activity. She had been using her incentive spirometer but lately had stopped using it. Patient had no prior cough, sore throat, fevers, chills or known sick contact exposure prior to her symptoms starting. Also no
reported new medications or medication dose changes that could have contributed to her symptoms. Her pulse ox was checked at home by the family and was 86% on room air so the brought her to the hospital for further evaluation. Initial
vitals showed her temperature was 97.4 �F, pulse rate 58, respiratory rate 16, BP 142/77 and she was saturating 94% on room air. Initial labs showed leukopenia to 4.2, Hb 11.7, platelet count 74, INR 1.17, blood gas showed chronic hypercapnia with
pH 7.42 and pCO2 58. proBNP 172. Her urinalysis showed no evidence for UTI. Her flu swab was negative and she was COVID-19 antigen negative as well. CXR showed small bilateral pleural effusions and patchy parenchymal opacities in the bases, both
slightly improved from prior CXR in April 2025. No convincing evidence for pulmonary edema. She was given 40 mg IV Lasix and admitted to telemetry for hypoxemia. Shortly after 5:30 AM after patient admitted, her temperature did drop to as low as
92.1 �F. Blood glucose on morning of 08/11 was low at 61. Patient also reported to have hypotension with SBP in the 70s, and on morning of 08/11 during hospitalist rounds she had audible gurgling that was heard on exam. Patient was started on
Unasyn, started on D5-NS and transferred to IMU for further management with Levophed ordered. Pulmonary service consulted for additional management/recommendations.
Chronic conditions [employer]: Hypertension, GERD, restless leg syndrome, paraesophageal hernia s/p robotic assisted laparoscopic repair (04/15/2025), chronic hypercapnic respiratory failure, tricuspid valve regurgitation, hyperlipidemia, paroxysmal A-fib on
Eliquis, restrictive lung disease, left thumb CMC joint arthritis, history of anal prolapse
Impression:
#Acute hypoxic respiratory failure
#Acute on chronic chronic hypercapnic respiratory failure
#Circulatory shock requiring vasopressors
#Hypoglycemia
#Hypothermia
#Pancytopenia (had similar values in November 2024)
#Transaminitis
#Moderate restrictive lung defect with T%, VC: 77% and DLCO: 43%, albeit DLco/VA: 68% via PFTs from 02/19/2025
#Moderate tricuspid regurgitation
#Small PFO (seen on echo from April 2025)
#Chronic HFpEF
#Paroxysmal A-fib on Eliquis
#Hx of paraesophageal hernia s/p robotic assisted laparoscopic repair (04/15/2025) with post op course complicated by acute respiratory failure and volume overload
#Restless leg syndrome
Plan:
-
Clinically from the respiratory perspective continues to improve.--> ON 3L NC
Patient is debilitated/deconditioned.
Alert and cooperative.
Her ABG has significantly improved: 7.39/62/114 (08/14/2025). Continue with current plan
-
Acute/? chronic hypercapnic respiratory failure:
- ABG 08/11/2025---> 7.35/75/95---> ABG improved post Bipap..
- Mental status has improved--08/14/2025
- Continue to monitor mental status closely/aspiration precautions.
- ABG improved with more intensity BiPAP usage-should use it during naps and at bedtime.
- Avoid sedatives.
- If patient becomes unresponsive, then she will need to be intubated for airway protection. Remains full code.
- New ? Acute hypoxemic respiratory failure: Continue supplemental oxygen, titrating flow rate to maintain SpO2 >90-94%(hypercapnia not present in April 2025)
Interestingly postoperatively patient has low lung volumes. Right hemidiaphragm elevation on imaging.
Cannot rule out possible diaphragm dysfunction explaining hypercapnia, as well as generalized muscle weakness due to deconditioning.
- Suspected aspiration pneumonitis/pneumonia-hypoventilatory changes
- Aspiration precautions; LABORER DEMOLITION saw patient and recommended soft bite-size solids with thin liquids
- CT chest 08/12/2025: Right hemidiaphragm elevation. Bibasilar consolidations suspected to be atelectasis/pneumonia. Minimal pleural effusion. Minimal ground glass infiltrate. Slightly enlarged mediastinal lymphadenopathy suspect reactive.
- Continue Unasyn for now-complete 7 days.( last day 08/17/2025)
-Sputum culture--> Not able to produce.
Influenza negative. COVID-negative.
Follow-up blood cultures x 2 (collected 08/11/2025); UA is clear
- Mental status back to baseline-developed delirium with hypercapnia/infection.
- Found to be hypoglycemic and hypothermic/pancytopenic - -> Unclear etiology- possible toxic metabolic encephalopathy? sepsis
- TSH , free t4 and cortisol normal.
- Clinically improved since 08/14/2025.
-
Hypotension/shock: Levophed was weaned off as of 08/12/2025.
Status post IV fluid resuscitation
Normal renal function.
Normal random cortisol.
-
Given bibasilar significant atelectasis/airspace disease
Secretion clearance interventions
Vest therapy
Nebulizers 3 times a day
Percussion therapy
Increase mobility
Incentive spirometry encouraged.
Favor head of the bed elevation due to possible right diaphragm dysfunction.
Use BiPAP with naps and at bedtime.10/5 cm H2O-->>tolerating this settings better.
Suspect will need Bipap at DC -->> will obtain ABG 08/17/2025 in AM.
Repeat CXR in AM 08/17/2025.
-
Pancytopenia: Improved. Unclear etiology.
Normal renal function
Normal coagulation profile.
Hematology following
Atrial fibrillation/heart failure with preserved ejection fraction-appears euvolemic.
Echocardiogram 04/2025: Normal LVEF. Normal right ventricular size and function. Mild to moderate TR.
Normal proBNP.
Cardiology following
Anticoagulation ongoing
Okay to advance diet today.
Bowel regimen
- DVT ppx - Eliquis.
-
Physical therapy/Occupational Therapy as tolerated
Patient will need to follow us again after hospital discharge - last visit was on 05/16/[address] Travis updated family in detail 08/12/2025 and, 08/13/2025, 08/14/2025, 08/15/2025, 08/16/2025 at the bedside.
-
Again, on 08/13/2025 discussed with possibility of updating to DNR. Patient has expressed in the past that she would not want mechanical ventilation. Ongoing discussion with family.
-
Hopefully patient can be discharged on Tuesday. Discussed with family that will be ideal goal.
Will continue to follow
Data:
CXR 08/10/2025:
Small bilateral pleural effusions, improved since radiograph of April 29, 2025.
Patchy parenchymal opacity within both lower lungs, right greater than left, slightly improved from most recent radiograph, suggesting improvement in atelectasis.
Cardiomegaly. No convincing evidence for pulmonary edema pattern.
Outpatient [facility] data:
PFT 02/19/2025:
Postbronchodilator FEV1 1.16 L, 73% of predicted.� FVC 1.57 L, 73% of predicted.� FEV1/FVC 74.
� Lung volumes.� Total lung capacity reduced at 2.91 L, 67% of predicted.
� Diffusion capacity.� Reduced at 7.44, 43% of predicted, when adjusted for alveolar volume to 68% of predicted.
� Conclusion:��Moderate restrictive disease with reduced total lung capacity and reduced diffusion capacity.� No evidence of obstructive airway disease.
6MWT:
12/19/24: At rest, O2 100% on room air, heart rate 81. With ambulation, O2 aureliano 99%, max heart rate 134. 1/10 on dyspnea scale. Ambulated 300 feet.
Labs: �
12/09/2024: Hemoglobin 12, absolute eosinophils 100, carbon dioxide 33, BUN 18, creatinine 0.6
11/30/2024: D-dimer 2.78, ABG pH 7.45, pCO2 46, pO2 73, HCO3 32, O2 sat 96.8
11/29/2024: Ferritin 154
Subjective Data
-
Date of Service:
Date of Service: August 16, 2025
Chief Complaint: Pulmonary Follow Up (Chronic hypercapnic respiratory failure)
Subjective:
No overnight events
Patient denies any new complaints
No significant phlegm production
Continues to feel debilitated
Continues to tolerate BiPAP at night
Review of Systems
Cardiopulmonary: Dyspnea, Dyspnea on Exertion and Cough
Objective Data
Data Reviewed
Vital Signs / I&O / Oxygen:
Vital Signs
Temp Pulse Resp BP Pulse Ox
98.1 F 84 24 136/73 94
08/16/25 07:50 08/16/25 08:00 08/16/25 08:00 08/16/25 08:00 08/16/25 08:00
Intake and Output
08/15/25 08/16/25 08/17/25
06:59 06:59 06:59
Intake Total 1380 / 1380 720 / 720
Output Total 450 / 450
Balance 930 / 930 720 / 720
SaO2 94
Nasal Cannula flow liters per 2
minute
Physical Exam
General: Comfortable
HEENT: Normocephalic
Cardiovascular: S1-S2
Respiratory: Wheeze (none), Non-Labored Respirations and Other ( diminished breath sounds bilaterally. Bronchial breath sounds bilaterally on bases.)
GI: Soft and Non Distended
Neurology: Awake, Alert, No Motor Deficits and Other (Following commands)
Skin: Warm
Labs/Micro/Reports
Lab Data
08/16/25 05:21
08/16/25 05:21
Microbiology
08/11/25 12:39 Blood/Venous Blood Culture - Preliminary
No Growth in 4 days- Final report to follow
08/11/25 12:39 Blood/Venous Blood Culture - Preliminary
No Growth in 4 days- Final report to follow
08/13/25 18:24 Nose MRSA Screen - Final
No Methicillin Resistant Staphylococcus aureus isolated.
--- NOTE | 2025-08-16 12:21 | WOUNDNOTE ---
YI RN NOTE: Confirmed with Dr. Nunes can cancel wound consult for R arm bleeding, IV team following/managing.
[2025-08-16 12:22] LABS: Glucose - Point of Care 94 mg/dl (70-99)
[2025-08-16] MEDS: MAGNESIUM OXIDE 400 MG PO (13:08)
[2025-08-16] MEDS: REQUIP 2 MG PO (13:08)
--- NOTE | 2025-08-16 16:28 | PTCARENOTE ---
Assumed care of patient at beginning of this shift from previous RN. Per report patient tolerated bipap t/o the night; received with 2L n/c in use. Home O2 assessment completed by PT/OT during therapy; POx dropped to 84-85% per their report, see
documentation. See worklist for full assessment and vital signs.
--- NOTE | 2025-08-16 17:15 | CM ---
F/U: ALLISON James spoke to Hospitalist who stated that patient may go home the weekend, but needs home O2, test was ordered, and BIPAP machine. CM received results of O2 test, patient qualifies, thus family given choices, was fine with using [employer] as the company. ALLISON met with RT- from [employer] who was given all clinical then there was a questions of a better machine, AVAPS, so reached out to [employer] who said this machine would be better than BIPAP. AGATA Monroy given all clinical and as
well as script.
Patient is set up with AVAPS that will be delivered once home and O2 that will be delivered to the patient's room on DC once [address] call [employer] calls either Marta #[phone] or SARAH Chavira #[phone]. [facility] is already following for
DC as well as Palliative Care who had a visit planned before she was admitted. PLAN: Resume Palliative Care, [facility] for Respiratory Health and [employer] for O2 + AVAPS.
[2025-08-16 17:43] LABS: Glucose - Point of Care 135 mg/dl (70-99)
[2025-08-16] MEDS: TYLENOL 650 MG PO (20:31)
[2025-08-16 21:16] LABS: Glucose - Point of Care 187 mg/dl (70-99)
[2025-08-16] MEDS: PRAVACHOL 20 MG PO (22:29)
[2025-08-17] VITALS (13 sets, daily range): BP systolic 108–163; BP diastolic 66–88; PULSE 2–65; BMI 21.9
[2025-08-17] MEDS: UNASYN IV ×4 (03:26→19:53)
[2025-08-17 06:05] LABS: Hematocrit 26.6 % (37.0-47.0); Hemoglobin 8.6 g/dL (12.0-16.0); Mean Corp Hgb Conc. 32.3 g/dL (33.0-37.0); Mean Corpuscular Volume 93.3 fL (81.0-99.0); Platelet Count 145 10^3/uL (130-400); Red Cell Dist. Width 15.8 % (11.5-14.5)
[2025-08-17 06:30] LABS: Blood Urea Nitrogen 15 mg/dl (7-17); Calcium 8.7 mg/dl (8.4-10.2); Chloride 96 mmol/L (98-107); Estimated Creatinine Clearance 59 ml/min; Glucose 75 mg/dl (70-99); Potassium 4.3 mmol/L (3.5-5.1); Sodium 134 mmol/L (135-145); eGFR > 60.00
[2025-08-17 06:40] LABS: Carbon Dioxide 38 mmol/L (22-30)
[2025-08-17] MEDS: DUONEB 3 ML INH ×3 (07:30→20:01)
--- NOTE | 2025-08-17 07:47 | W.PN.HOSP.TC ---
Today's Communication/Plan
-
Start Toprol 25 mg today, monitor tele overnight for any issues
Anticipate discharge tomorrow if patient remains stable
Assessment / Plan
Assessment / Plan
Physical Exam
General: Cachectic
HEENT: Oxygen (Nasal cannula)
Respiratory: Decreased breath sounds bilaterally.
Cardiac: Regular Rhythm and S1/S2
GI: Nontender and Normal Bowel Sounds
Musculoskeletal: No Edema
Neuro: Awake, Alert, Oriented and No Motor Deficits
Assessment/Plan
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
Small Bilateral Pleural Effusions - Improved
Restrictive Lung Disease
- Patient does not appear grossly volume overloaded, pleural effusions appear decreased from prior and BNP was only 172.
- Low lung volumes, poor compliance with IS and had poor performance on IS (able to inhale 500ml max)
- Note prior mention of chronic, mild hypercapnia as well.
- Patient required intubation during a prior admission and was on BiPAP for a time following that. Continued outpatient use was considered but felt not needed.
- ABG showed pH of 7.34 pCO2 75 -BiPAP trial was ordered -patient with history of difficulty remain on BiPAP due to anxiety
- On 08/13/25, given lethargy and hypercapnia per pulmonary Dr. Vasques: NPO except clears, keep on BiPAP given worsened mental status in setting of respiratory acidosis and hypercapnia --
patient later improved -- NPO order later had been replaced with a diet
- On 08/14/25, patient improved: continue BiPAP with nights and naps-unchanged on settings
- Continue Vest therapy
- Continue incentive spirometer
- Postoperatively (following hernia surgery in April 2025), patient has low lung volumes. Possible right hemidiaphragm elevation. Cannot rule out possible diaphragm dysfunction explaining hypercapnia.
- CT of the chest noted Right hemidiaphragm elevation. Bibasilar consolidations suspected to be atelectasis/pneumonia. Minimal pleural effusion. Minimal ground glass infiltrate. Slightly enlarged mediastinal lymphadenopathy
suspect reactive.
- Dr. Morales is patient's outpatient bag sewer
- If patient becomes unresponsive, then she will need to be intubated for airway protection.
- Repeat chest x-ray stable
Acute toxic metabolic encephalopathy
- As of 08/15/25, this continues to improve significantly
- Reason unclear. May have component of hypercapnic respiratory failure versus periodic Hypoglycemia -- but hypercapnia does not explain patient's mental status
- Not on any sedative medication
- No brain imaging at admission, will consider ordering if mental status still does not improve
Shock - unknown type
r/o infection
- Patient initially reported to having systolic blood pressure in 70s
- Started on 08/11/25 empiric Unasyn to cover for pulmonary organism with possible aspiration. Will require broadening with addition of vancomycin if start spiking fever or if patient decompensates.
- Continue Unasyn -- continue antibiotics for 7 days total
- Follow blood culture x2 (no growth to date). COVID/Flu neg. UA clear.
- Levophed started 08/11/25, but weaned off as of 08/12/25 morning
R/o Dysphagia
Reported h/o of vocal cord dysfunction
- Patient have audible gurgling during the morning rounds
- Have reported history of dysphagia, repeat speech therapy evaluation ordered
- Continue current diet with regular solids, thin liquids, encourage carbohydrates to prevent hypoglycemia
Hypoglycemia
- Patient have low borderline BMI of 15. weight has been stable. Family reported appropriate oral intake
- Received D5/NS support -- now that patient is eating and drinking again, stopped IV fluids as of 08/14/25 evening
- Continue monitoring accuchecks and BMPs
Hypothermia
- At least partly from hypoglycemia. TSH mildly elevated but less than 10, Free T4 normal, cortisol normal --> this does not explain hypothermia.
- Continue Rocio hugger as needed
- Since patient is eating and drinking, stopped IV fluids as IV fluids are at room temperature and this can possibly be contributing to hypothermia
- Cardiology does not suspected a cardiac process
- Avoid sedatives
- Added Thiamine 200 mg PO daily on 08/13/25 in case there is thiamine deficiency
- Dietary consult to optimize nutrition
- If patient decompensates, may need broadened coverage of antibiotics
Thrombocytopenia with some bleeding while on Eliquis -- thrombocytopenia likely from hypothermia, sepsis - continue supportive care
- On and off bleeding from IV line access on right arm, controlled with the help of IV nurse -- last episode was on 08/15/25
- Thrombocytopenia is new and significant
- Appreciate hematology: okay to continue Eliquis for now with platelets >50,000 in the absence of significant bleeding
- Follow microbiology studies; Vitamin B12 is low, folate level is normal and checked DIC panel
Vitamin B12 Deficiency
- Started Vitamin B12 supplementation
- Transition to daily sublingual B12 (~2000mcg/d) at discharge
Normocytic to Macrocytic Anemia
- Hgb dropping -- suspected from right arm bleeding around IV access site
- Patient is already getting Vitamin B12 IM injections
- Ordered iron studies suggest some iron deficiency anemia -- no objection to oral iron as long as patient is moving her bowels and able to continue a bowel regimen to avoid constipation at home
- As of 08/15/25, patient is noted to be on bowel regimen and has been having bowel movements
- Therefore, start oral iron 325 mg PO Q48H -- no IV iron since patient has a likely infection as above
Chronic HFpEF (not acute or acute on chronic HFpEF)
-Family reported worsening lower extremity swelling although not much on exam today
-Got IV Lasix 40 mg in the ER. No need for further diuresis.
-Cardiology recommended on holding further diuretics as no signs supporting HF exacerbation.
-Echo done 04/2025 showed normal LVEF and mild - moderate TR. No need to repeat.
-TTE echo from 08/12/25 with no new changes compared to previous one in April 2025
-Can evaluate for SGLT2 inhibitor prior to discharge vs. outpatient setting
-Follow-up with [facility] cardiology outpatient
Abnormal LFTs
- ? med effect, passive congestion, etc.
- No GI complaints. Abd US deferred , can be checked once clinically stable
Leukopenia / Thrombocytopenia
- New from prior admissions.
- No new medications since last discharge (04/2025).
- Hgb WAS decreasing -- suspected from hemodilution, B12 deficiency -- now more stable
- Follow for any improvement / further changes in cell counts.
- Hematology evaluation
Paroxysmal Atrial Fibrillation
- Stable.
- Continue half-dose Eliquis 2.5 mg BID
- Holding Diltiazem given recent hypotension 08/11-08/12 -- resumed short-acting Diltiazem on 08/13/25, but patient became hypotensive again -- so now holding Diltiazem
- Re-consulted cardiology on 08/17/25, Toprol XL 25 mg daily added
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
- On 08/15/25 evening, I discussed over [place] Text with urologist Dr. Ramos who said that pessary cleaning/change cannot be done here and has to be done as outpatient - none of the urologists who cover the hospital change pessaries
History of Pleural Effusion
- Thought to be from surgery
- Right sided drained
Benign Hypertension
- Stable. Continue usual medications.
GERD / Hiatal Hernia
- s/p gastropexy 04/16/25 (here at [facility])
- Continue PPI.
RLS
- Stable. Continue ropinirole.
DVT Prophylaxis: On Eliquis
Diet/Speech: Regular solids with thin liquids
Code Status: Full
Plan to discharge patient on O2 and VAPS therapy. Bilevel/RAD has been tried in hospital previously and has proven ineffective at managing this patient�s hypercapnia and has been on VAPS Mode tolerating well. The patient has Restrictive Lung disease
and Acute on Chronic Respiratory Failure requiring the need for NIMV- Target tidal volume with adjustable pressures will help reduce pCO2 levels, increase oxygenation, and help improve overall Respiratory status and re-admission to the hospital.
This patient also requires continuous alarms, battery back-up and portability which are not possible with Bilevel/RAD devices as interruption or power failure may cause serious respiratory medical consequences and/ or even life threatening.
Care plan discussed with pulmonary
Family updated bedside
Anticipated Discharge: Within 24 hours
Subjective/Interval History
-
Date of Service: August 17, 2025
Patient was seen and examined. No new significant symptoms.
Objective Data
-
Labs:
Laboratory Results
08/17/25 08/17/25
05:27 08:00
WBC 3.3 L
Hgb 8.6 L
Hct 26.6 L
Plt Count 145 D
HCO3 Pending
Sodium 134 L
Potassium 4.3
Chloride 96 L
Carbon Dioxide 38 H
BUN 15
Creatinine 0.7
Glucose 75
Calcium 8.7
Vital Signs:
Vital Signs
Temp Pulse Resp BP Pulse Ox
96.7 F L 68 98 131/88 98
08/17/25 02:42 08/17/25 07:31 08/17/25 07:31 08/17/25 00:00 08/17/25 07:31
I&O
08/16/25 08/17/25 08/18/25
06:59 06:59 06:59
Intake Total 720 / 720
Output Total 450 / 450
Balance 720 / 720 -450 / -450
[2025-08-17 08:11] LABS: Glucose - Point of Care 85 mg/dl (70-99)
--- NOTE | 2025-08-17 08:45 | PTCARENOTE ---
Patient's HR intermittently increasing to 120s while eating only for a few seconds at a time. TT to and cardiology re-consulted.
[2025-08-17] MEDS: MIRALAX 17 GRAMS PO (09:46)
[2025-08-17] MEDS: ELIQUIS 2.5 MG PO ×2 (09:47→19:53)
[2025-08-17] MEDS: PROTONIX 40 MG PO (09:47)
[2025-08-17] MEDS: VITAMIN B1 200 MG PO (09:47)
[2025-08-17] MEDS: CYANOCOBALAMIN 1000 MCG IM (09:49)
--- NOTE | 2025-08-17 09:54 | W.PN.PUL3 ---
Today's Communication / Plan
-
She is maintained on home meds, on stable O2 amount
Awaiting home PAP and O2 set up
Ok for discharge from our perspective
Outpatient FU to be arranged
Plan of care reviewed with family
Assessment
-
79-year-old female with a past medical history of chronic hypercapnic respiratory failure, paroxysmal A-fib on Eliquis, restrictive lung disease, paraesophageal hernia s/p robotic assisted laparoscopic repair with postoperative course complicated by
respiratory failure with volume overload, hypertension, GERD, and hyperlipidemia who presents with low oxygen levels and altered mental status. For about 1 week prior to arrival, the patient has been increasingly more fatigued with daytime
somnolence and reduced activity. She had been using her incentive spirometer but lately had stopped using it. Patient had no prior cough, sore throat, fevers, chills or known sick contact exposure prior to her symptoms starting. Also no reported
new medications or medication dose changes that could have contributed to her symptoms. Her pulse ox was checked at home by the family and was 86% on room air so the brought her to the hospital for further evaluation. Initial vitals showed
her temperature was 97.4 �F, pulse rate 58, respiratory rate 16, BP 142/77 and she was saturating 94% on room air. Initial labs showed leukopenia to 4.2, Hb 11.7, platelet count 74, INR 1.17, blood gas showed chronic hypercapnia with pH 7.42 and
pCO2 58. proBNP 172. Her urinalysis showed no evidence for UTI. Her flu swab was negative and she was COVID-19 antigen negative as well. CXR showed small bilateral pleural effusions and patchy parenchymal opacities in the bases, both slightly
improved from prior CXR in April 2025. No convincing evidence for pulmonary edema. She was given 40 mg IV Lasix and admitted to telemetry for hypoxemia. Shortly after 5:30 AM after patient admitted, her temperature did drop to as low as 92.1 �F.
Blood glucose on morning of 08/11 was low at 61. Patient also reported to have hypotension with SBP in the 70s, and on morning of 08/11 during hospitalist rounds she had audible gurgling that was heard on exam. Patient was started on Unasyn,
started on D5-NS and transferred to IMU for further management with Levophed ordered. Pulmonary service consulted for additional management/recommendations.
#Acute hypoxic respiratory failure
#Acute on chronic hypercapnic respiratory failure
#Circulatory shock requiring vasopressors
#Hypoglycemia
#Hypothermia
#Pancytopenia (had similar values in November 2024)
#Transaminitis
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
Hypertension
GERD
Paraesophageal hernia s/p robotic assisted laparoscopic repair (04/15/2025)
Chronic hypercapnic respiratory failure
Hyperlipidemia
Moderate restrictive lung defect with T%, VC: 77% and DLCO: 43%, albeit DLco/VA: 68% via PFTs from 02/19/2025
Moderate tricuspid regurgitation
Small PFO (seen on echo from April 2025)
Chronic HFpEF
Paroxysmal A-fib on Eliquis
Restless leg syndrome
Plan:
Clinically from the respiratory perspective continues to improve--> ON 3L NC
Patient is debilitated/deconditioned.
Alert and cooperative.
Her ABG has significantly improved: 7.39/62/114 (08/14/2025). Continue with current plan
Acute on chronic hypercapnic respiratory failure:
- ABG 08/11/2025---> 7.35/75/95---> ABG improved post Bipap.
- Mental status has improved--08/14/2025
- Continue to monitor mental status closely/aspiration precautions.
- ABG improved with more intensity BiPAP usage-should use it during naps and at bedtime.
- Avoid sedatives.
Awaiting home set up
Acute hypoxemic respiratory failure: Continue supplemental oxygen, titrating flow rate to maintain SpO2 >90-94%(hypercapnia not present in April 2025)
Interestingly postoperatively patient has low lung volumes. Right hemidiaphragm elevation on imaging.
Cannot rule out possible diaphragm dysfunction explaining hypercapnia, as well as generalized muscle weakness due to deconditioning.
Suspected aspiration pneumonitis/pneumonia-hypoventilatory changes
Aspiration precautions; CABLE HOOKER saw patient and recommended soft bite-size solids with thin liquids
CT chest 08/12/2025: Right hemidiaphragm elevation. Bibasilar consolidations suspected to be atelectasis/pneumonia. Minimal pleural effusion. Minimal ground glass infiltrate. Slightly enlarged mediastinal lymphadenopathy suspect reactive.
Continue Unasyn for now-complete 7 days.( last day 08/17/2025)
Sputum culture--> Not able to produce.
Influenza negative. COVID-negative.
Follow-up blood cultures x 2 (collected 08/11/2025); UA is clear
Mental status back to baseline-developed delirium with hypercapnia/infection.
Found to be hypoglycemic and hypothermic/pancytopenic - -> Unclear etiology- possible toxic metabolic encephalopathy? sepsis
TSH , free t4 and cortisol normal.
Clinically improved since 08/14/2025.
Given bibasilar significant atelectasis/airspace disease
Secretion clearance interventions
Vest therapy, Nebulizers 3 times a day, Percussion therapy
Increase mobility, Incentive spirometry encouraged.
Favor head of the bed elevation due to possible right diaphragm dysfunction.
Use BiPAP with naps and at bedtime.10/5 cm H2O-->>tolerating this settings better.
Suspect will need Bipap at [place], she has previous qualifying ABGs
Repeat CXR in AM 08/17/2025.
Pancytopenia: Improved. Unclear etiology.
Normal renal function
Normal coagulation profile.
Hematology following
Atrial fibrillation/heart failure with preserved ejection fraction-appears euvolemic.
Echocardiogram 04/2025: Normal LVEF. Normal right ventricular size and function. Mild to moderate TR.
Normal proBNP.
Cardiology following
Anticoagulation ongoing
DVT ppx - Eliquis.
Physical therapy/Occupational Therapy as tolerated
Dr. Travis updated family in detail 08/12/2025 and, 08/13/2025, 08/14/2025, 08/15/2025, 08/16/2025 at the bedside.
Again, on 08/13/2025 discussed with possibility of updating to DNR. Patient has expressed in the past that she would not want mechanical ventilation. Ongoing discussion with family.
Patient will need to follow us again after hospital discharge - last visit was on 05/16/[address] Morales.
Hopefully patient can be discharged on Tuesday. Discussed with family that will be ideal goal.
Will continue to follow
Data:
CXR 08/10/2025: Small bilateral pleural effusions, improved since radiograph of April 29, 2025. Patchy parenchymal opacity within both lower lungs, right greater than left, slightly improved from most recent radiograph, suggesting improvement in
atelectasis. Cardiomegaly. No convincing evidence for pulmonary edema pattern.
Outpatient [facility] data:
PFT 02/19/2025: Postbronchodilator FEV1 1.16 L, 73% of predicted.� FVC 1.57 L, 73% of predicted.� FEV1/FVC 74.
� Lung volumes.� Total lung capacity reduced at 2.91 L, 67% of predicted.
� Diffusion capacity.� Reduced at 7.44, 43% of predicted, when adjusted for alveolar volume to 68% of predicted.
� Conclusion:��Moderate restrictive disease with reduced total lung capacity and reduced diffusion capacity.� No evidence of obstructive airway disease.
6MWT 12/19/24: At rest, O2 100% on room air, heart rate 81. With ambulation, O2 aureliano 99%, max heart rate 134. 1/10 on dyspnea scale. Ambulated 300 feet.
Labs: �
12/09/2024: Hemoglobin 12, absolute eosinophils 100, carbon dioxide 33, BUN 18, creatinine 0.6
11/30/2024: D-dimer 2.78, ABG pH 7.45, pCO2 46, pO2 73, HCO3 32, O2 sat 96.8
11/29/2024: Ferritin 154
Total time spent on this consultation/encounter __51__ minutes which includes review of history, physical exam, medications, laboratory data, personal review of imaging, extensive review of outpatient records, discussion with care team and
respiratory therapy.
Subjective Data
-
Date of Service:
Date of Service: August 17, 2025
Chief Complaint: Pulmonary Follow Up (Chronic hypercapnic respiratory failure)
Subjective:
No new complaints
Family at bedside
Objective Data
Data Reviewed
Vital Signs / I&O / Oxygen:
Vital Signs
Temp Pulse Resp BP Pulse Ox
97.2 F 68 98 131/88 98
08/17/25 08:11 08/17/25 07:31 08/17/25 07:31 08/17/25 00:00 08/17/25 07:31
Intake and Output
08/16/25 08/17/25 08/18/25
06:59 06:59 06:59
Intake Total 720 / 720
Output Total 450 / 450
Balance 720 / 720 -450 / -450
SaO2 98
Nasal Cannula flow liters per 0.5
minute
Physical Exam
General: Comfortable and Other (NAD)
HEENT: Normocephalic, Anicteric and Moist Mucous Membranes
Cardiovascular: S1-S2 and Regular Rhythm
Respiratory: Non-Labored Respirations and Other ( diminished breath sounds bilaterally. Bronchial breath sounds bilaterally on bases.)
GI: Soft, Non Distended and Non Tender
Neurology: Awake, Alert, Oriented, No Motor Deficits and Other (Following commands)
Skin: Warm, Dry and Good Color
Labs/Micro/Reports
Lab Data
08/17/25 05:27
08/17/25 05:27
Laboratory Results
08/17/25
08:00
pH Cancelled
pCO2 Cancelled
pO2 Cancelled
HCO3 Cancelled
O2 Delivery Level Cancelled
Microbiology
08/11/25 12:39 Blood/Venous Blood Culture - Final
No Growth - Final Report
08/11/25 12:39 Blood/Venous Blood Culture - Final
No Growth - Final Report
08/13/25 18:24 Nose MRSA Screen - Final
No Methicillin Resistant Staphylococcus aureus isolated.
--- NOTE | 2025-08-17 09:57 | W.PN.CD ---
Today's Communication / Plan
-
- Stop Diltiazem - long and short acting
- Start toprol XL 25 mg QD
Impression / Plan
-
A/P: 79-year-old female with history of HFpEF, valvular heart disease, paroxysmal A-fib, hypercapnic respiratory failure, restrictive lung disease, who is here with fatigue and hypoxemia.
Paroxysmal AF
- In sinus rhythm on tele with bouts of SVT - Atial tachycardia.
- Continue Eliquis (half dose given age and weight)
- Difficulty with Dilt due to BP drops and breakthrough AT
- Will switch Dilt to Toprol XL 25 mg QD for better suppression of PACs and AT.
Hypercapnic hypoxic respiratory failure
-very somnolent
- Per primary and pulmonary
Hypothermia, hypotension, leukopenia, confusion concerning for possible sepsis;
- cont. abx per primary for possible pneumonia
- thyroid function tests with elevated TSH, normal T4
Chronic HFpEF
- Does not appear to be volume overloaded and in setting of hypotension hold diuretics
- Normal proBNP
- CXR with interval improvement in basilar atelectasis and pleural effusion, no e/o pulm edema
- TTE with normal lvef, pasp 44--no change from prior
- Can evaluate for SGLT2 inhibitor in outpatient setting
Pancytopenia
- Per primary/onc no c/s
Hypertension
- now low, hold agents resume as able
Subjective, lethargic
SUMMARY
1. Normal biventricular systolic function. LVEF 60-65%.
2. Moderate tricuspid regurgitation with mildly elevated pulmonary artery systolic pressure (44 mmHg).
3. No significant change compared to prior echocardiogram in April 2025.
Physical Exam
Vital Signs/Labs
Vital Signs
Temp Pulse Resp BP Pulse Ox
97.2 F 68 98 131/88 98
08/17/25 08:11 08/17/25 07:31 08/17/25 07:31 08/17/25 00:00 08/17/25 07:31
08/16/25 08/17/25 08/18/25
06:59 06:59 06:59
Actual Weight 60.5 kg 61.4 kg
08/17/25 05:27
08/17/25 05:27
PT 16.2 Sec (11.4-14.6) H 08/13/25 04:37
INR 1.28 08/13/25 04:37
APTT 36.5 Sec (23.4-35.0) H 08/13/25 04:37
TSH 6.09 uIU/ml (0.47-4.68) H 08/11/25 06:39
Free T4 1.53 ng/dl (0.78-2.19) 08/11/25 06:39
08/10/25
18:17
[id number] Pept 172
Physical Exam
Constitutional: No acute distress and Comfortable
EENT: Anicteric and Moist mucous membranes
Cardiovascular: Rhythm & rate is regular, Pedal edema is absent and JVD pressure is normal
Respiratory: Respiratory effort normal and Rhonchi Present
GI: Soft, Non tender and Normal bowel sounds
Neuro/Psych: Alert, Oriented and AO x 3
Data Reviewed
-
Date of Service: August 17, 2025
Medical Decision Making: Reviewed Test Results, Test Interpretation and Review of Case with other Provider
EKG: Tracing Personally Visualized and interpreted
Echo: Report Reviewed by me
Labs: Labs Reviewed by me
Old Records: Reviewed
[2025-08-17] MEDS: TOPROL XL 25 MG PO (10:32)
[2025-08-17 11:40] LABS: Glucose - Point of Care 123 mg/dl (70-99)
[2025-08-17] MEDS: REQUIP 2 MG PO (12:17)
[2025-08-17] MEDS: MAGNESIUM OXIDE 400 MG PO (12:17)
[2025-08-17] MEDS: TYLENOL 650 MG PO (14:06)
[2025-08-17 17:20] LABS: Glucose - Point of Care 103 mg/dl (70-99)
[2025-08-17] MEDS: PRAVACHOL 20 MG PO (19:53)
[2025-08-17 21:31] LABS: Glucose - Point of Care 131 mg/dl (70-99)
[2025-08-18] VITALS (14 sets, daily range): BP systolic 94–161; BP diastolic 58–99; PULSE 2–63; O2SAT 96; BMI 22.0
[2025-08-18] MEDS: UNASYN IV ×2 (03:14→09:50)
[2025-08-18 05:15] LABS: Hematocrit 28.2 % (37.0-47.0); Hemoglobin 9.0 g/dL (12.0-16.0); Mean Corp Hgb Conc. 31.9 g/dL (33.0-37.0); Mean Corpuscular Volume 96.9 fL (81.0-99.0); Platelet Count 155 10^3/uL (130-400); Red Cell Dist. Width 15.8 % (11.5-14.5)
[2025-08-18 05:36] LABS: Blood Urea Nitrogen 15 mg/dl (7-17); Calcium 9.2 mg/dl (8.4-10.2); Carbon Dioxide 36 mmol/L (22-30); Chloride 96 mmol/L (98-107); Estimated Creatinine Clearance 69 ml/min; Glucose 72 mg/dl (70-99); Potassium 4.3 mmol/L (3.5-5.1); Sodium 134 mmol/L (135-145); eGFR > 60.00
[2025-08-18] MEDS: DUONEB 3 ML INH ×2 (07:41→13:01)
[2025-08-18 08:27] LABS: Glucose - Point of Care 80 mg/dl (70-99)
[2025-08-18] MEDS: FEOSOL 325 MG PO (08:56)
[2025-08-18] MEDS: CYANOCOBALAMIN 1000 MCG IM (08:56)
[2025-08-18] MEDS: PROTONIX 40 MG PO (08:57)
[2025-08-18] MEDS: ELIQUIS 2.5 MG PO ×2 (08:57→20:02)
[2025-08-18] MEDS: VITAMIN B1 200 MG PO (08:57)
[2025-08-18] MEDS: TOPROL XL 25 MG PO ×2 (08:57→11:34)
--- NOTE | 2025-08-18 08:57 | W.PN.HOSP.TC ---
Addendum entered and electronically signed by Lex Nunes MD 08/20/25 13:16:
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
Original Note:
Today's Communication/Plan
-
Discharge today
Assessment / Plan
Assessment / Plan
Physical Exam
General: Cachectic
HEENT: Oxygen (Nasal cannula)
Respiratory: Decreased breath sounds bilaterally.
Cardiac: Regular Rhythm and S1/S2
GI: Nontender and Normal Bowel Sounds
Musculoskeletal: No Edema
Neuro: Awake, Alert, Oriented and No Motor Deficits
Assessment/Plan
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
Small Bilateral Pleural Effusions - Improved
Restrictive Lung Disease - Dr. 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
- Patient does not appear grossly volume overloaded, pleural effusions appear decreased from prior and BNP was only 172.
- Low lung volumes, poor compliance with IS and had poor performance on IS (able to inhale 500ml max)
- Postoperatively (following hernia surgery in April 2025), patient had low lung volumes. Possible right hemidiaphragm elevation. Cannot rule out possible diaphragm dysfunction explaining hypercapnia.
- CT of the chest noted Right hemidiaphragm elevation. Bibasilar consolidations suspected to be atelectasis/pneumonia. Minimal pleural effusion. Minimal ground glass infiltrate. Slightly enlarged mediastinal lymphadenopathy
suspect reactive.
- Note prior mention of chronic, mild hypercapnia as well.
- Patient required intubation during a prior admission and was on BiPAP for a time following that. Continued outpatient use was considered but felt not needed.
- ABG showed pH of 7.34 pCO2 75 - BiPAP trial was ordered -patient with history of difficulty remain on BiPAP due to anxiety
- On 08/14/25, patient improved: continue BiPAP with nights and naps-unchanged on settings
- Continue scheduled nebulizer therapy
- Continue Vest therapy
- Continue incentive spirometer
- Continue O2 at home (oxygen has already been set up) - continue supplemental oxygen to maintain SpO2 >90-94%
- Continue BiPAP at home (BiPAP has already been set up)
- Head of the bed elevation due to possible right diaphragm dysfunction.
Paroxysmal Atrial Fibrillation
Intolerance to Diltiazem -- Hypotension
Premature Atrial Complexes and Atrial Tachycardia
- Stable.
- Continue half-dose Eliquis 2.5 mg BID
- Holding Diltiazem given recent hypotension 08/11-08/12 -- resumed short-acting Diltiazem on 08/13/25, but patient became hypotensive again -- so now holding Diltiazem
- Re-consulted cardiology on 08/17/25, Toprol XL 25 mg daily added --> Toprol XL was increased to 50 mg daily on 08/18/25, but BP and HR dropped on 08/18/25 late afternoon
- Decrease Toprol XL back to 25 mg daily (discussed this plan with Dr. Fermin)
Hypertension
Hypertensive Urgency on 08/18/25
- Added Amlodipine 2.5 mg daily
- Toprol XL was added as above per cardiology due to episodes of tachycardia/atrial tachycardia -- increased dose on 08/18 but patient later developed hypotension and bradycardia -- reduce Toprol XL back to 25 mg daily
Acute toxic metabolic encephalopathy - RESOLVED
- Suspected from periods of hypercapnia+infection
Shock - unknown type
Suspected aspiration pneumonitis/pneumonia
- Still having episodes of hypotension with very labile BP with addition of cardizem (so Cardizem stopped) and with increase in beta leela
- Patient initially reported to having systolic blood pressure in 70s
- Completed ~7 days of Unasyn
- Follow blood culture x2 (no growth to date). COVID/Flu neg. UA clear.
- Levophed started 08/11/25, but weaned off as of 08/12/25 morning
R/o Dysphagia
Reported h/o of vocal cord dysfunction
- Patient have audible gurgling during the morning rounds
- Have reported history of dysphagia, repeat speech therapy evaluation ordered
- Continue current diet with regular solids, thin liquids, encourage carbohydrates to prevent hypoglycemia -- see last speech therapy note
Hypoglycemia
- Patient have low borderline BMI of 15. weight has been stable. Family reported appropriate oral intake
- Received D5/NS support -- now that patient is eating and drinking again, stopped IV fluids as of 08/14/25 evening
- Encouraged increased carbohydrate intake -- blood sugars have been stable off the D5 IV fluids
- Continue monitoring accuchecks and BMPs
Hypothermia
- Improved, now mainly at night, warm blankets multiple layers helps
- At least partly from hypoglycemia. TSH mildly elevated but less than 10, Free T4 normal, cortisol normal --> this does not explain hypothermia.
- Encouraging warm blankets instead of Rocio Hugger
- Since patient is eating and drinking, stopped IV fluids as IV fluids are at room temperature and this can possibly be contributing to hypothermia
- Avoid sedatives
- Added Thiamine 200 mg PO daily on 08/13/25 in case there is thiamine deficiency contributing to hypothermia
- Dietary consult to optimize nutrition
Thrombocytopenia with some bleeding while on Eliquis -- thrombocytopenia likely from hypothermia, sepsis - continue supportive care
- On and off bleeding from IV line access on right arm, controlled with the help of IV nurse -- last episode was on 08/15/25
- Thrombocytopenia is new and significant
- Appreciate hematology: okay to continue Eliquis for now with platelets >50,000 in the absence of significant bleeding
- Follow microbiology studies; Vitamin B12 is low (see below), folate level is normal and checked DIC panel
Vitamin B12 Deficiency
- Started Vitamin B12 supplementation
- Getting IM Vitamin B12 here. Transition to daily sublingual B12 (~2000mcg/d) at discharge
Normocytic to Macrocytic Anemia
- Hgb dropped but then stabilized -- suspected from right arm bleeding around IV access site -- IV line at that site was removed, bleeding is now resolved
- Patient is already getting Vitamin B12 IM injections
- Iron studies suggest some iron deficiency anemia -- no objection to oral iron as long as patient is moving her bowels and able to continue a bowel regimen to avoid constipation at home
- As of 08/15/25, patient is noted to be on bowel regimen and has been having bowel movements
- Therefore, started oral iron 325 mg PO Q48H -- no IV iron since patient has/recovering from a likely infection/pneumonia as above
Chronic HFpEF (not acute or acute on chronic HFpEF)
-Family reported worsening lower extremity swelling although not much on exam today
-Got IV Lasix 40 mg in the ER. No need for further diuresis.
-Cardiology recommended on holding further diuretics as no signs supporting HF exacerbation.
-Echo done 04/2025 showed normal LVEF and mild - moderate TR. No need to repeat.
-TTE echo from 08/12/25 with no new changes compared to previous one in April 2025
-Can evaluate for SGLT2 inhibitor prior to discharge vs. outpatient setting
-Follow-up with [facility]ology outpatient
Abnormal LFTs - RESOLVED
- ? med effect, passive congestion, etc.
Leukopenia / Thrombocytopenia
- New from prior admissions.
- No new medications since last discharge (04/2025).
- Hgb WAS decreasing -- suspected from hemodilution, B12 deficiency -- now more stable
- Follow for any improvement / further changes in cell counts.
- Hematology evaluation -- see their last note from 08/15/25
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
- On 08/15/25 evening, I discussed over [place] [employer] with urologist Dr. Ramos who said that pessary cleaning/change cannot be done here and has to be done as outpatient - none of the urologists who cover the hospital change pessaries
- I explained to patient's the above and he understood
History of Pleural Effusion
- Thought to be from surgery
- Right sided drained
GERD / Hiatal Hernia
- s/p gastropexy 04/16/25 (here at [facility])
- Continue PPI.
RLS
- Stable. Continue ropinirole.
DVT Prophylaxis: On Eliquis
Diet/Speech: Regular solids with thin liquids
Code Status: Full
Plan to discharge patient on O2 and VAPS therapy. Bilevel/RAD has been tried in hospital previously and has proven ineffective at managing this patient�s hypercapnia and has been on VAPS Mode tolerating well. The patient has Restrictive Lung disease
and Acute on Chronic Respiratory Failure requiring the need for NIMV- Target tidal volume with adjustable pressures will help reduce pCO2 levels, increase oxygenation, and help improve overall Respiratory status and re-admission to the hospital.
This patient also requires continuous alarms, battery back-up and portability which are not possible with Bilevel/RAD devices as interruption or power failure may cause serious respiratory medical consequences and/ or even life threatening.
Care plan discussed with pulmonary
Family updated bedside extensively and again over the phone later in the day.
More than 30 minutes spent in discharge including
Final examination of the patient
Summarizing hospital stay
Instructions for continuing care to all relevant caregivers
Preparation of discharge records, prescriptions, and referral forms
Total time spent (in minutes): 90
Anticipated Discharge: Within 24 hours
Subjective/Interval History
-
Date of Service: August 18, 2025
Patient was seen and examined. She was doing well this morning, no new symptoms or issues.
Objective Data
-
Labs:
Laboratory Results
08/18/25
05:02
WBC 3.3 L
Hgb 9.0 L
Hct 28.2 L
Plt Count 155
Sodium 134 L
Potassium 4.3
Chloride 96 L
Carbon Dioxide 36 H
BUN 15
Creatinine 0.6
Glucose 72
Calcium 9.2
Vital Signs:
Vital Signs
Temp Pulse Resp BP Pulse Ox
97.3 F 67 16 161/73 97
08/18/25 03:10 08/18/25 07:45 08/18/25 07:45 08/18/25 04:00 08/18/25 07:45
I&O
08/17/25 08/18/25 08/19/25
06:59 06:59 06:59
Intake Total 720 / 720
Output Total 450 / 450 800 / 800
Balance -450 / -450 -80 / -80
[2025-08-18] MEDS: MIRALAX PO (09:00)
--- NOTE | 2025-08-18 10:02 | W.PN.PUL3 ---
Today's Communication / Plan
-
Awaiting CM setup with O2 and BIPAP at home, can wait to recheck ABG as OP
We reviewed outpatient follow up extensively, will arrange outpatient follow up
Ok for discharge planning per team
Assessment
-
79-year-old female with a past medical history of chronic hypercapnic respiratory failure, paroxysmal A-fib on Eliquis, restrictive lung disease, paraesophageal hernia s/p robotic assisted laparoscopic repair with postoperative course complicated by
respiratory failure with volume overload, hypertension, GERD, and hyperlipidemia who presents with low oxygen levels and altered mental status. For about 1 week prior to arrival, the patient has been increasingly more fatigued with daytime
somnolence and reduced activity. She had been using her incentive spirometer but lately had stopped using it. Patient had no prior cough, sore throat, fevers, chills or known sick contact exposure prior to her symptoms starting. Also no reported
new medications or medication dose changes that could have contributed to her symptoms. Her pulse ox was checked at home by the family and was 86% on room air so the brought her to the hospital for further evaluation. Initial vitals showed
her temperature was 97.4 �F, pulse rate 58, respiratory rate 16, BP 142/77 and she was saturating 94% on room air. Initial labs showed leukopenia to 4.2, Hb 11.7, platelet count 74, INR 1.17, blood gas showed chronic hypercapnia with pH 7.42 and
pCO2 58. proBNP 172. Her urinalysis showed no evidence for UTI. Her flu swab was negative and she was COVID-19 antigen negative as well. CXR showed small bilateral pleural effusions and patchy parenchymal opacities in the bases, both slightly
improved from prior CXR in April 2025. No convincing evidence for pulmonary edema. She was given 40 mg IV Lasix and admitted to telemetry for hypoxemia. Shortly after 5:30 AM after patient admitted, her temperature did drop to as low as 92.1 �F.
Blood glucose on morning of 08/11 was low at 61. Patient also reported to have hypotension with SBP in the 70s, and on morning of 08/11 during hospitalist rounds she had audible gurgling that was heard on exam. Patient was started on Unasyn,
started on D5-NS and transferred to IMU for further management with Levophed ordered. Pulmonary service consulted for additional management/recommendations.
#Acute hypoxic respiratory failure
#Acute on chronic hypercapnic respiratory failure
#Circulatory shock requiring vasopressors
#Hypoglycemia
#Hypothermia
#Pancytopenia (had similar values in November 2024)
#Transaminitis
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
Hypertension
GERD
Paraesophageal hernia s/p robotic assisted laparoscopic repair (04/15/2025)
Chronic hypercapnic respiratory failure
Hyperlipidemia
Moderate restrictive lung defect with T%, VC: 77% and DLCO: 43%, albeit DLco/VA: 68% via PFTs from 02/19/2025
Moderate tricuspid regurgitation
Small PFO (seen on echo from April 2025)
Chronic HFpEF
Paroxysmal A-fib on Eliquis
Restless leg syndrome
Plan:
Clinically from the respiratory perspective continues to improve--> ON 2L NC
Patient is debilitated/deconditioned.
Alert and cooperative.
Her ABG has significantly improved: 7.39/62/114 (08/14/2025). Continue with current plan
Acute on chronic hypercapnic respiratory failure:
- ABG 08/11/2025---> 7.35/75/95---> ABG improved post Bipap.
- Mental status has improved--08/14/2025
- Continue to monitor mental status closely/aspiration precautions.
- ABG improved with more intensity BiPAP usage-should use it during naps and at bedtime.
- Avoid sedatives.
Awaiting home set up
Acute hypoxemic respiratory failure: Continue supplemental oxygen, titrating flow rate to maintain SpO2 >90-94%(hypercapnia not present in April 2025)
Interestingly postoperatively patient has low lung volumes. Right hemidiaphragm elevation on imaging.
Cannot rule out possible diaphragm dysfunction explaining hypercapnia, as well as generalized muscle weakness due to deconditioning.
Suspected aspiration pneumonitis/pneumonia-hypoventilatory changes
Aspiration precautions; MEMORY CARE DIRECTOR saw patient and recommended soft bite-size solids with thin liquids
CT chest 08/12/2025: Right hemidiaphragm elevation. Bibasilar consolidations suspected to be atelectasis/pneumonia. Minimal pleural effusion. Minimal ground glass infiltrate. Slightly enlarged mediastinal lymphadenopathy suspect reactive.
Continue Unasyn for now-complete 7 days.( last day 08/17/2025)
Sputum culture--> Not able to produce.
Influenza negative. COVID-negative.
Follow-up blood cultures x 2 (collected 08/11/2025); UA is clear
Mental status back to baseline-developed delirium with hypercapnia/infection.
Found to be hypoglycemic and hypothermic/pancytopenic - -> Unclear etiology- possible toxic metabolic encephalopathy? sepsis
TSH , free t4 and cortisol normal.
Clinically improved since 08/14/2025.
Given bibasilar significant atelectasis/airspace disease
Secretion clearance interventions
Vest therapy, Nebulizers 3 times a day, Percussion therapy
Increase mobility, Incentive spirometry encouraged.
Favor head of the bed elevation due to possible right diaphragm dysfunction.
Use BiPAP with naps and at bedtime.10/5 cm H2O-->>tolerating this settings better.
Suspect will need Bipap at [place], she has previous qualifying ABGs
Repeat CXR in AM 08/17/2025.
Pancytopenia: Improved. Unclear etiology.
Normal renal function
Normal coagulation profile.
Hematology following
Atrial fibrillation/heart failure with preserved ejection fraction-appears euvolemic.
Echocardiogram 04/2025: Normal LVEF. Normal right ventricular size and function. Mild to moderate TR.
Normal proBNP.
Cardiology following
Anticoagulation ongoing
DVT ppx - Eliquis.
Physical therapy/Occupational Therapy as tolerated
Dr. rTavis updated family in detail 08/12/2025 and, 08/13/2025, 08/14/2025, 08/15/2025, 08/16/2025 at the bedside.
Again, on 08/13/2025 discussed with possibility of updating to DNR. Patient has expressed in the past that she would not want mechanical ventilation. Ongoing discussion with family.
Patient will need to follow us again after hospital discharge - last visit was on 05/16/[address] Morales.
Hopefully patient can be discharged on Tuesday. Discussed with family that will be ideal goal.
Will continue to follow
Data:
CXR 08/10/2025: Small bilateral pleural effusions, improved since radiograph of April 29, 2025. Patchy parenchymal opacity within both lower lungs, right greater than left, slightly improved from most recent radiograph, suggesting improvement in
atelectasis. Cardiomegaly. No convincing evidence for pulmonary edema pattern.
Outpatient [facility] data:
PFT 02/19/2025: Postbronchodilator FEV1 1.16 L, 73% of predicted.� FVC 1.57 L, 73% of predicted.� FEV1/FVC 74.
� Lung volumes.� Total lung capacity reduced at 2.91 L, 67% of predicted.
� Diffusion capacity.� Reduced at 7.44, 43% of predicted, when adjusted for alveolar volume to 68% of predicted.
� Conclusion:��Moderate restrictive disease with reduced total lung capacity and reduced diffusion capacity.� No evidence of obstructive airway disease.
6MWT 12/19/24: At rest, O2 100% on room air, heart rate 81. With ambulation, O2 aureliano 99%, max heart rate 134. 1/10 on dyspnea scale. Ambulated 300 feet.
Labs: �
12/09/2024: Hemoglobin 12, absolute eosinophils 100, carbon dioxide 33, BUN 18, creatinine 0.6
11/30/2024: D-dimer 2.78, ABG pH 7.45, pCO2 46, pO2 73, HCO3 32, O2 sat 96.8
11/29/2024: Ferritin 154
Total time spent on this consultation/encounter __51__ minutes which includes review of history, physical exam, medications, laboratory data, personal review of imaging, extensive review of outpatient records, discussion with care team and
respiratory therapy.
Subjective Data
-
Date of Service:
Date of Service: August 18, 2025
Chief Complaint: Pulmonary Follow Up (Chronic hypercapnic respiratory failure)
Subjective:
No new events, sons at bedside
Ready to go home
Objective Data
Data Reviewed
Vital Signs / I&O / Oxygen:
Vital Signs
Temp Pulse Resp BP Pulse Ox
97.6 F 72 16 160/99 97
08/18/25 07:00 08/18/25 08:57 08/18/25 07:45 08/18/25 08:57 08/18/25 07:45
Intake and Output
08/17/25 08/18/25 08/19/25
06:59 06:59 06:59
Intake Total 720 / 720
Output Total 450 / 450 800 / 800
Balance -450 / -450 -80 / -80
SaO2 97
Nasal Cannula flow liters per 2
minute
Physical Exam
General: Comfortable and Other (NAD)
HEENT: Normocephalic, Anicteric and Moist Mucous Membranes
Cardiovascular: S1-S2 and Regular Rhythm
Respiratory: Non-Labored Respirations and Other ( diminished breath sounds bilaterally. Bronchial breath sounds bilaterally on bases.)
GI: Soft, Non Distended and Non Tender
Neurology: Awake, Alert, Oriented, No Motor Deficits and Other (Following commands)
Skin: Warm, Dry and Good Color
Labs/Micro/Reports
Lab Data
08/18/25 05:02
08/18/25 05:02
Microbiology
08/11/25 12:39 Blood/Venous Blood Culture - Final
No Growth - Final Report
08/11/25 12:39 Blood/Venous Blood Culture - Final
No Growth - Final Report
08/13/25 18:24 Nose MRSA Screen - Final
No Methicillin Resistant Staphylococcus aureus isolated.
[2025-08-18] MEDS: NORVASC 2.5 MG PO (10:35)
[2025-08-18 11:20] LABS: Glucose - Point of Care 101 mg/dl (70-99)
[2025-08-18] MEDS: MAGNESIUM OXIDE 400 MG PO (11:34)
[2025-08-18] MEDS: REQUIP 2 MG PO (11:34)
[2025-08-18] MEDS: TYLENOL 650 MG PO ×2 (12:37→16:49)
[2025-08-18 17:21] LABS: Glucose - Point of Care 113 mg/dl (70-99)
--- NOTE | 2025-08-18 17:40 | PTCARENOTE ---
Pt BP 94/59 Dr Rome aware . pt probably not going home
[2025-08-18] MEDS: DUONEB INH (20:00)
[2025-08-18] MEDS: PRAVACHOL 20 MG PO (20:02)
--- NOTE | 2025-08-18 20:49 | W.PN.UPDATE ---
Update Note
Progress Note Update
Patient's hypotension and heart rate issue resolved later this evening. Patient doing well without any symptoms or bradycardia or hypotension. I spoke with patient's over the phone and after patient's discussed with patient and his
family, they were all clearly agreeable that patient should be discharged home.
Patient was discharged late in the day to monitor for side effects from Amlodipine and increase dose Toprol XL (both of which were given in the morning). Ultimately it was determined that Toprol XL should be reduced back to 25 mg daily after patient
developed hypotension and bradycardia later this afternoon, but again the hypotension and bradycardia were asymptomatic and they also resolved later on.
I explained to the patient's that patient's medications can be picked up from patient's pharmacy tomorrow morning and patient can take her medications tomorrow morning. Patient's was agreeable to this plan. Patient's said
that their pharmacy is very close to their residence.
I also communicated with pulmonary Dr. Luong about how patient can get a nebulizer machine (for Duonebs) and she and I agreed that [facility] office will keep in touch with patient's (or patient's will call [facility] office) to get the machine.
Very extensive, multiple communications between myself and family today.
--- NOTE | 2025-08-18 21:16 | PTCARENOTE ---
pt for discharge, discharge instructions given to patient, and daughter at bedside. pt taken out to car by wheelchair by hospital staff without issues.
--- NOTE | 2025-08-19 09:13 | CM ---
Addendum entered by Erika Bonilla 08/19/25 09:18:
Patient also has [facility] and referral was updates yesterday for them to follow up today.
Original Note:
LATE NOTE: 08/18- Hospitalist in the AM told the that he would DC her later today if the change in medication did not drop her BP and HR. [employer] already delivered the O2 at the home and tank to the room plus the AVAPS machine yesterday jsut
in case. Then [employer] rep came to ensure the felt comfortable and had any questions, which did not.
ALLISON James asked around 16:30 then 17:30, but then told at 17:45 that the patient will stay. Then CM got message this morning (08/19) that Hospitalist DC the patient after 19:30 so CM did not get the message until this morning on 08/19. ALLISON reached out
to the [employer] to call the right away today, 08/19 to get RT there today for teaching.
PLAN: Home with O2 plus AVAPS machine
== END 2025-08-18 21:21 | disposition home health service (06) | DRG 871 ==
LOC: IMU 22:02
PROVIDERS: Hospitalist; Nurse Practitioner Acute Care; Nurse Practitioner Family; ADMITTING PHYSICIAN Hospitalist; ATTENDING PHYSICIAN Hospitalist; CONSULT PHYSICIAN Internal Medicine Cardiovascular Disease; CONSULT PHYSICIAN Internal Medicine Critical Care Medicine; CONSULT PHYSICIAN Internal Medicine Hematology & Oncology; EMERGENCY PHYSICIAN Emergency Medicine
PROC: 5A09357 Assistance with Respiratory Ventilation, Less than 24 Consecutive Hours, Continuous Positive Airway Pressure (ICD-10-PCS; 2025-08-13)
DX: A41.9 Sepsis, unspecified organism (principal); G92.8 Other toxic encephalopathy; J96.22 Acute and chronic respiratory failure with hypercapnia; I50.33 Acute on chronic diastolic (congestive) heart failure; J69.0 Pneumonitis due to inhalation of food and vomit; R65.21 Severe sepsis with septic shock; J96.01 Acute respiratory failure with hypoxia; J18.9 Pneumonia, unspecified organism; J98.11 Atelectasis; D61.818 Other pancytopenia; Q21.12 Patent foramen ovale; R57.9 Shock, unspecified; I11.0 Hypertensive heart disease with heart failure; I48.0 Paroxysmal atrial fibrillation; I35.0 Nonrheumatic aortic (valve) stenosis; E78.00 Pure hypercholesterolemia, unspecified; K21.9 Gastro-esophageal reflux disease without esophagitis; K44.9 Diaphragmatic hernia without obstruction or gangrene; J98.4 Other disorders of lung; I07.1 Rheumatic tricuspid insufficiency; E16.2 Hypoglycemia, unspecified; R74.01 Elevation of levels of liver transaminase levels; R68.0 Hypothermia, not associated with low environmental temperature; G25.81 Restless legs syndrome; E53.8 Deficiency of other specified B group vitamins; M18.12 Unilateral primary osteoarthritis of first carpometacarpal joint, left hand; D69.6 Thrombocytopenia, unspecified; D72.819 Decreased white blood cell count, unspecified; Z79.01 Long term (current) use of anticoagulants; Z88.8 Allergy status to other drugs, medicaments and biological substances; Z11.52 Encounter for screening for COVID-19; Z80.0 Family history of malignant neoplasm of digestive organs; Z81.1 Family history of alcohol abuse and dependence
CPT/HCPCS: 36600; 71045; 71046; 71250; 80048; 80053; 81003; 82248; 82533; 82607; 82728; 82746; 82805; 82962; 83540; 83550; 83880; 84134; 84439; 84443; 85025; 85027; 85045; 85379; 85384; 85610; 85730; 87040; 87070; 87502; 87811; 92526; 92610; 93005; 93308; 94640; 94660; 94669; 96374; 97116; 97163; 97167; 97530; 97535; 99285